=== PATIENT | male | born 1945 | race Caucasian/White ===

== ENCOUNTER 2023-06-09 10:57 | Inpatient (IN) | payer OTHER ==
--- OUTSIDE RECORDS SUMMARY | 2023-06-09 11:01 | XMS REPORT | Continuity of Care Document ---
:1945 Author Organization [facility] t Address 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 - [facility] n) [facility] Coronary CAD Problem Common artery (coronary Spirit disease artery - [facility] disease) [facility] [id number] History of Problem Co mmon prostate [facility] cancer - [facility] [id number] Sciatic Problem Common leg pain [facility] - [facility] Hyperlipid Hyperlipid Problem C ommon emia emia [facility] - [facility] [id number] Malignant Problem Comm on melanoma Spirit of face - [facility] excluding [facility], [facility] Hypertensi Hypertensi Problem C ommon on on [facility] - [facility] [id number] Functional Problem Com mon diarrhea [facility] - [facility] [id number] History of Problem Co mmon acute [facility] anterior - [facility] wall [place] [facility] [id number] Abdominal Problem Com mon bloating [facility] - [facility] [id number] Allergic Problem Commo n rhinitis, Spirit unspecifie - [facility] d [facility] Type II Diabetes Problem Common diabetes mellitus Spirit mellitus type 2, - [facility] well controlled [facility] Hypothyroi Hypothyroi Problem C [facility] dism dism [facility] Allergies, Adverse Reactions, Alerts Allergy Allergy Status Severity Reaction(s) Onset Inactive Treating Comm ents Source Name Type Date Date Clinician Morphine Morphine Active anaphylaxis C [facility] Social History Social Habit Start Date Stop Date Quantity Comments Source History of Tobacco Use Co mmon [facility] Sex Assigned At Com [facility] Smoking Status Start Date Stop Date Source Never Smoker [facility] Medications Ordered Filled Start Stop Current Ordering Indication Dosage Frequency Signature Comments Components Source Medication Medication Date Date Medication? Clinician (SIG) Name Name Glimepiride Glimepiride No 1{table QD Glimepirid 2 MG 2 MG 12-05 t_with_ e 2 MG 00:00: break 00 st_or_t he_firs t_main_ meal_of _the_da y} Glimepiride Glimepiride No 1{table QD Glimepirid 2 MG 2 MG 12-05 t_with_ e 2 MG 00:00: break 00 st_or_t he_firs t_main_ meal_of _the_da y} Montelukast Montelukast No 1{table QD Montelukas Sodium 10 Sodium 10 6-04 t} t Sodium MG MG 00:00: 10 MG 00 Fluticasone Fluticasone No 1{spray QD Fluticason Propionate Propionate 6 _in_eac e 50 MCG/ACT 50 MCG/ACT 00:00: h_nostr Propionate 00 il} 50 MCG/ACT Montelukast Montelukast No 1{table QD Montelukas Sodium 10 Sodium 10 6-04 t} t Sodium MG MG 00:00: 10 MG 00 Fluticasone Fluticasone No 1{spray QD Fluticason Propionate Propionate 6-04 _in_eac e 50 MCG/ACT 50 MCG/ACT 00:00: h_nostr Propionate 00 il} 50 MCG/ACT Levothyroxi Levothyroxi No QD Levothyrox ne Sodium ne Sodium ine Sodium 50 MCG 50 MCG 50 MCG Crestor 40 Crestor 40 No 1{table QD Crestor 40 MG MG t} MG Saw Saw No Saw [place] 450 MG 450 MG 450 MG Multivitami Multivitami No Multivitam n Adult - n Adult - in Adult - Metoprolol Metoprolol No 1{table BID Metoprolol Tartrate 50 Tartrate 50 t_with_ Tartrate MG MG food} 50 MG Januvia 50 Januvia 50 No Januvia 50 MG MG MG Fish Oil Fish Oil No 1{capsu QD Fish Oil 1000 MG 1000 MG le} 1000 MG Methocarbam Methocarbam No Methocarba ol 500 MG ol 500 MG mol 500 MG Aspirin 81 Aspirin 81 No 1{table QD Aspirin 81 81 MG 81 MG t} 81 MG Plavix 75 Plavix 75 No 1{table QD Plavix 75 MG MG t} MG Losartan Losartan No 1{table QD Losartan Potassium Potassium t} Potassium 100 MG 100 MG 100 MG Levothyroxi Levothyroxi No QD Levothyrox ne Sodium ne Sodium ine Sodium 50 MCG 50 MCG 50 MCG Crestor 40 Crestor 40 No 1{table QD Crestor 40 MG MG t} MG Saw Saw No Saw [place] 450 MG 450 MG 450 MG Multivitami Multivitami No Multivitam n Adult - n Adult - in Adult - Metoprolol Metoprolol No 1{table BID Metoprolol Tartrate 50 Tartrate 50 t_with_ Tartrate MG MG food} 50 MG Januvia 50 Januvia 50 No Januvia 50 MG MG MG Fish Oil Fish Oil No 1{capsu QD Fish Oil 1000 MG 1000 MG le} 1000 MG Methocarbam Methocarbam No Methocarba ol 500 MG ol 500 MG mol 500 MG Aspirin 81 Aspirin 81 No 1{table QD Aspirin 81 81 MG 81 MG t} 81 MG Plavix 75 Plavix 75 No 1{table QD Plavix 75 MG MG t} MG Losartan Losartan No 1{table QD Losartan Potassium Potassium t} Potassium 100 MG 100 MG 100 MG Vital Signs Vital Name Observation Time Observation Value Comments Source height 2022-09-30 08:20:00 66 [in_i] Common [facility] weight 2022-09-30 08:20:00 183 [lb_av] Common [facility] temperature 2022-09-30 08:20:00 97.2 [degF] Common [facility] bmi 2022-09-30 08:20:00 29.53 kg/m2 Common [facility] oximetry 2022-09-30 08:20:00 98 % Common [facility] respiratory rate 2022-09-30 08:20:00 16 /min Comm on [facility] blood pressure 2022-09-30 08:20:00 136 mm[Hg] Common [facility] - systolic [facility] blood pressure 2022-09-30 08:20:00 82 mm[Hg] Common [facility] - diastolic [facility] height 2022-09-30 09:00:00 66 [in_i] Common [facility] weight 2022-09-30 09:00:00 183 [lb_av] Common [facility] temperature 2022-09-30 09:00:00 97.2 [degF] Common [facility] bmi 2022-09-30 09:00:00 29.53 kg/m2 [facility] oximetry 2022-09-30 09:00:00 98 % [facility] respiratory rate 2022-09-30 09:00:00 16 /min Comm on [facility] blood pressure 2022-09-30 09:00:00 136 mm[Hg] Common [facility] - systolic [facility] blood pressure 2022-09-30 09:00:00 82 mm[Hg] Common [facility] diastolic [facility] Procedures This patient has no known procedures. Encounters Start End Encounter Admission Attending Care Care Encounter Source Date/Time Date/Time Type Type Clinicians Facility Department ID 2022-09-[address] [facility] [id number] Common 08:24:02 Sandie [id number] [facility] 2022-09-30 2022-09-30 OFFICE [facility] [id number] Co mmon 00:00:00 00:00:00 VISIT EST Spir it PT LEVEL 3 - [facility] 2022-09-30 2022-09-30 SUB ANNUAL [facility] [id number] Common 00:00:00 00:00:00 MCR Spirit WELLNESS - [facility] VISIT [facility] Results This patient has no known results.
[2023-06-09] MEDS ORDERED: FAMOTIDINE 20 MG/2 ML VIAL IV ONE (11:22)
[2023-06-09 11:38] LABS: Absolute Lymphocytes (CBC) 1.1 K/uL (0.7-4.9); Hematocrit 47.1 % (39.6-49.0); Lymphocytes % 7.6 % (15.3-44.8); MPV 7.9 fL (7.6-11.3); RBC Red Blood Cell Count 5.12 M/uL (4.33-5.43)
--- NOTE | 2023-06-09 11:46 | RAD REPORT ---
EXAM DESCRIPTION: US - Abdomen Exam Limited - 06/09/2023 11:38 am CLINICAL HISTORY: ABD PAIN COMPARISON: No comparisons FINDINGS: The gallbladder demonstrates no gallstones. No pericholecystic fluid or gallbladder wall t hickening. The common bile duct is normal measuring 4 mm. The liver demonstrates no findings of intrahepatic biliary dilatation. IMPRESSION: Unremarkable examination.
[2023-06-09 12:17] LABS: Albumin 4.2 g/dL (3.4-5.0); Bilirubin Total 0.4 mg/dL (0.2-1.0); Potassium 4.7 mEq/L (3.5-5.1); Protein, Total 8.8 g/dL (6.4-8.2); Troponin High Sensitivity 35.2 pg/mL (<58.9)
--- NOTE | 2023-06-09 12:27 | RAD REPORT ---
EXAM DESCRIPTION: RAD - Chest Single View - 06/09/2023 11:48 am CLINICAL HISTORY: CHEST PAIN Chest pain. COMPARISON: No comparisons FINDINGS: Portable technique limits examination quality. The lungs are grossly clear. The heart is normal in size. No displaced fractures.Sternotomy wires autumn dent. IMPRESSION: No acute intrathoracic process suspected.
[2023-06-09 12:48] LABS: Protime INR 0.8
--- NOTE | 2023-06-09 12:49 | RAD REPORT ---
EXAM DESCRIPTION: CTChest Abdomen Pelvis W Cont - 06/09/2023 12:32 pm CLINICAL HISTORY: abd pain;Chest pain COMPARISON: Abdomen Exam Limited dated 06/09/2023; Rad Therapy [facility] Pelv dated 06/23/2018 TECHNIQUE: CT of the chest, abdomen, and pelvis was performed with IV contrast. All CT scans are performed using dose optimization technique as appropriate and may include automated exposure control or mA/KV adjustment according to patient size. FINDINGS: Thorax: Chest Wall: No abnormal mass Lungs: Mild subpleural reticulation. No suspicious pulmonary nodules or acute process in the chest. Pleura: No effusions or pneumothorax. Carmelita/Mediastinum: No lymphadenopathy. Small hiatal hernia. Aorta/Pulmonary Arteries: Unremarkable Heart: Normal size. Coronary artery calcifications. Abdomen/Pelvis: Liver: Hepatic steatosis Biliary: Question some mild stranding around the gallbladder neck, common hepatic duct, and proximal common bile duct. Question tiny gallstones versus gallbladder wall calcifications. Stomach: No significant focal abnormality. Duodenum: Duodenal diverticulum. Pancreas: No significant abnormality. Spleen: No significant abnormality. Adrenal: No suspicious lesions. Kidney/ureter: No hydronephrosis. Bilateral renal calculi. The largest measures 16 millimeters in the right renal pelvis. Too small to characterize and/or benign appearing renal lesions are noted. Retroperitoneum: No retroperitoneal adenopathy. Vascular: No aneurysm. Atherosclerosis. Bowel: No significant focal abnormality. Normal appendix. Peritoneum: No ascites or free air. 14 mm peripherally calcified structure in in the transverse mesoc olon is nonspecific. It is unchanged since 2018 and benign . Bladder: Grossly unremarkable. Reproductive: No adnexal masses. Mild prostatomegaly. Bones: No acute fracture. Sternotomy. Other: n/a IMPRESSION: 1. No definite acute findings identified within the chest, abdomen, or pelvis. 2. Subtle stranding near the gallbladder neck, common hepatic duct, and proximal common bile duct. Th e etiology is uncertain, particularly given the unremarkable gallbladder ultrasound. Suggest correlat ing with LFTs. If abnormal, could consider MRCP for further evaluation. 3. Nonobstructive bilateral nephrolithiasis including a moderate size staghorn type 16 mm stone in th e right renal pelvis. No ureteral calculi.
--- NOTE | 2023-06-09 16:20 | RAD REPORT ---
EXAM DESCRIPTION: MRI - Cholangiogram - 06/09/2023 3:59 pm CLINICAL HISTORY: abd pain, chest tightness COMPARISON: Chest Abdomen Pelvis W Cont dated 06/09/2023 FINDINGS: Three-dimensional MRCP was performed using maximum intensity projection reconstruction on the same work station. Mild pericholecystic fluid. Negative for cholelithiasis. No choledocholithiasis. The intra and extrah epatic common bile ducts are normal in caliber. The common bile duct measures 4 millimeters. No pancr eatic ductal dilatation. 6 mm cyst at the pancreatic body. Limited T2 sequences through the abdomen demonstrates no bulky adenopathy, significant free fluid or abscess. Bilateral renal lesions of varying complexity likely representing cysts. IMPRESSION: Nonspecific pericholecystic fluid. Negative for cholelithiasis or choledocholithiasis. T his could be secondary to underlying liver disease. 6 mm cystic lesion in the pancreatic body could represent a pancreatic cyst, pseudocyst, or a small i ntraductal papillary mucinous neoplasm (IPMN). Twelve month follow-up MRCP is suggested.
--- NOTE | 2023-06-09 16:48 | ER ---
Nurse's Notes [facility] Name: Nnamdi Flores III Age: 77 yrs Sex: Male : 1945 Arrival Date: 06/09/2023 Time: 10:57 Bed 17 Private MD: Diagnosis: Chest pain, unspecified;Upper abdominal pain, unspecified;Pericholecystic fluid Presentation: 06/09 11:03 Chief complaint: EMS states: Woke up with the sensation of a rope being tied around nj1 chest/abdomen. Recently started mounjaro. Pain has gotten better. Coronavirus screen: Vaccine status: Patient reports receiving the 2nd dose of the covid vaccine. Ebola Screen: Patient denies travel to an Ebola-affected area in the 21 days before illness onset. Initial Sepsis Screen: Does the patient meet any 2 criteria? No. Patient's initial sepsis screen is negative. Does the patient have a suspected source of infection? No. Patient's initial sepsis screen is negative. Risk Assessment: Do you want to hurt yourself or someone else? Patient reports no desire to harm self or others. Onset of symptoms was June 09, 2023. 11:03 Method Of Arrival: EMS: [facility] 11:03 Acuity: DAMION 3 nj1 Historical: - Allergies: 11:06 Sulfa (Sulfonamide Antibiotics); nj1 11:06 Morphine; nj1 - PMHx: 11:06 Hypothyroidism; Hypertensive disorder; Coronary atherosclerosis; BPH; nj1 - Immunization history:: Client reports receiving the 2nd dose of the Covid vaccine. - Social history:: Smoking status: Patient denies any tobacco usage or history of. - Family history:: not pertinent. - Hospitalizations: : No recent hospitalization is reported. Screenin:09 [facility] ED Fall Risk Assessment (Adult) History of falling in the last 3 months, nj1 including since admission No falls in past 3 months (0 pts) Confusion or Disorientation No (0 pts) Intoxicated or Sedated No (0 pts) Impaired Gait No (0 pts) Mobility Assist Device Used No (0 pt) Altered Elimination No (0 pt) Score/Fall Risk Level 0 - 2 = Low Risk Oriented to surroundings, Maintained a safe environment, Hourly rounding (assess needs \T\ fall precautionary measures) done. Abuse screen: Denies threats or abuse. Denies injuries from another. Nutritional screening: No deficits noted. Tuberculosis screening: No symptoms or risk factors identified. Assessment: 11:07 General: Appears in no apparent distress. comfortable, Behavior is calm, cooperative, nj1 appropriate for age. Pain: Complains of pain in diaphragm Pain does not radiate. Pain currently is 3 out of 10 on a pain scale. Pain began this morning. Neuro: Level of Consciousness is awake, alert, obeys commands, Oriented to person, place, time, situation. Cardiovascular: Patient's skin is warm and dry. GI:. 19:30 General: Appears in no apparent distress. comfortable, Behavior is calm, cooperative, kl appropriate for age. Pain: Denies pain. Neuro: No deficits noted. Cardiovascular: Capillary refill < 3 seconds Patient's skin is warm and dry. Rhythm is sinus rhythm. Respiratory: No deficits noted. Airway is patent Trachea midline Respiratory effort is even, unlabored. GI: No deficits noted. No signs and/or symptoms were reported involving the gastrointestinal system. : No deficits noted. No signs and/or symptoms were reported regarding the genitourinary system. 21:00 Reassessment: Patient appears in no apparent distress at this time. Patient is alert, kl oriented x 3, equal unlabored respirations, skin warm/dry/pink. Patient states feeling better. Patient states symptoms have improved. Vital Signs: 11:03 BP 199 / 90; Pulse 80; Resp 20; Temp 98.2(O); Pulse Ox 96% on R/A; Weight 78.93 kg; nj1 Height 5 ft. 5 in. ; Pain 3/10; 12:58 BP 196 / 82; Pulse 74; Resp 18; Pulse Ox 99% on R/A; ko1 13:25 BP 189 / 71; Pulse 78; Resp 18; Pulse Ox 99% ; ko1 14:00 BP 204 / 85; Pulse 75; Resp 18; Pulse Ox 97% ; ko1 15:00 BP 199 / 86; Pulse 83; Resp 18; Pulse Ox 97% ; ko1 16:00 BP 176 / 93; Pulse 82; Resp 16; Pulse Ox 98% ; ko1 18:00 BP 170 / 78; Pulse 83; Resp 18; Pulse Ox 97% ; ko1 19:30 BP 148 / 71; Pulse 76; Resp 18; Pulse Ox 98% ; kl 20:00 BP 147 / 73; Pulse 76; Resp 18; Pulse Ox 96% ; kl 21:00 BP 155 / 74; Pulse 74; Resp 18; Pulse Ox 98% ; kl 22:00 BP 153 / 68; Pulse 71; Resp 18; Pulse Ox 99% ; kl 11:03 Body Mass Index 28.95 (78.93 kg, 165.1 cm) nj1 11:03 Pain Scale: Adult [facility] ED Course: 11:02 Patient arrived in ED. nj1 11:02 Shivam Rodriguez MD is Attending Physician. rn 11:02 Cookie Arrieta RN is Primary Nurse. nj1 11:06 Triage completed. nj1 11:07 Arm band placed on left wrist. nj1 11:09 Provided Education on: fall precautions. nj1 11:09 Patient has correct armband on for positive identification. Bed in low position. Call [facility] light in reach. Side rails up X 1. Adult w/ patient. Client placed on continuous cardiac and pulse oximetry monitoring. NIBP monitoring applied. 11:10 Patient maintains SpO2 saturation greater than 95% on room air. nj1 11:40 US Abdomen Limited In Process Unspecified. EDMS 11:47 XRAY Chest (1 view) In Process Unspecified. EDMS 12:07 EKG done, by ED staff, reviewed by Shivam Rodriguez MD. em1 12:23 PT-INR Sent. ko1 12:23 Basic Metabolic Panel Sent. ko1 12:30 Inserted saline lock: 22 gauge in left wrist, using aseptic technique. ko1 12:34 CT Chest, Abdomen, Pelvis - W/Contrast In Process Unspecified. EDMS 16:00 Cholangiogram In Process Unspecified. EDMS 16:47 Neto Rodriguez MD is Hospitalizing Provider. rn 18:00 Door closed. Warm blanket given. Pillow given. ko1 22:37 No apparent distress. Resting quietly. Appears to be sleeping. kl 22:37 No provider procedures requiring assistance completed. kl 23:17 Patient admitted, IV remains in place. kl Administered Medications: 12:19 Drug: Famotidine IVP 20 mg Route: IVP; Site: left wrist; ko1 17:07 Drug: Piperacillin-Tazobactam IVPB 3.375 grams Route: IVPB; Infused Over: 60 mins; ko1 Site: left wrist; 17:58 Drug: Aspirin PO Chewable Tablet 324 mg Route: PO; ko1 17:58 Drug: Enoxaparin Sub-Q 1 mg/kg Route: Sub-Q; Site: abdomen; ko1 Medication: 23:17 VIS not applicable for this client. shree Outcome: 16:48 Decision to Hospitalize by Provider. francheska 23:16 Admitted to Med/surg via wheelchair, room 210, with chart, Report called to Autumn swann 23:16 Condition: stable 23:16 Discharge instructions given to patient, Instructed on the need for admit, Demonstrated understanding of instructions. 23:17 Patient left the ED. shree Signatures: Dispatcher [employer] EDMS Carline Lala RN RN kl Nieto, Roman, MD MD rn Martinez, Eric em1 Oliver, Kathy, RN RN koCookie Brown RN RN nj1
--- NOTE | 2023-06-09 16:48 | EDPHYS ---
Physician Documentation [facility] Name: Nnamdi Flores III Age: 77 yrs Sex: Male : 1945 Arrival Date: 06/09/2023 Time: 10:57 Bed 17 Private MD: ED Physician Shivam Rodriguez HPI: 06/09 11:46 This 77 yrs old Unknown Male presents to ER via EMS with complaints of abdominal pain. rn 11:47 The patient presents with abdominal pain in the epigastric area. Onset: The rn symptoms/episode began/occurred this morning. The symptoms do not radiate. Associated signs and symptoms: Pertinent negatives: nausea and vomiting, blood in stools, fever, shortness of breath, vomiting, vomiting blood. The symptoms are described as tightness. Modifying factors: The symptoms are alleviated by nothing, the symptoms are aggravated by cold water. Severity of pain: At its worst the pain was moderate in the emergency department the pain has improved. The patient has experienced similar episodes in the past. The patient has not recently seen a physician. Pt reports woke up with "feeling like a rope tightening around upper stomach". No fever. No trauma. Reports hard to tell if upper abdomen or chest. NO sob/cough. No hemoptysis. Reports taking weight loss medication and has been belching a lot. Cold water improves discomfort. NO vomiting. Pain already improving without EMS intervention, currently discomfort 12/27.. Historical: - Allergies: 11:06 Sulfa (Sulfonamide Antibiotics); nj1 11:06 Morphine; nj1 - PMHx: 11:06 Hypothyroidism; Hypertensive disorder; Coronary atherosclerosis; BPH; nj1 - Immunization history:: Client reports receiving the 2nd dose of the Covid vaccine. - Social history:: Smoking status: Patient denies any tobacco usage or history of. - Family history:: not pertinent. - Hospitalizations: : No recent hospitalization is reported. ROS: 11:47 Constitutional: Negative for fever, chills, and weight loss, Eyes: Negative for injury, rn pain, redness, and discharge, Neck: Negative for injury, pain, and swelling, Cardiovascular: Negative for palpitations, and edema, Respiratory: Negative for shortness of breath, cough, wheezing, and pleuritic chest pain, Abdomen/GI: Negative for nausea, vomiting, + constipation Back: Negative for injury and pain, MS/Extremity: Negative for injury and deformity, Skin: Negative for injury, rash, and discoloration, Neuro: Negative for headache, weakness, numbness, tingling, and seizure. Exam: 11:47 Constitutional: This is a well developed, well nourished patient who is awake, alert, rn and in no acute distress. ENT: dry MM Chest/axilla: Normal chest wall appearance and motion. Nontender with no deformity. No lesions are appreciated. Cardiovascular: Regular rate and rhythm. No pulse deficits. Respiratory: No increased work of breathing, no retractions or nasal flaring. Abdomen/GI: Soft, mild epigastric tenderness Skin: Warm, dry MS/ Extremity: Pulses equal, no cyanosis. Neuro: Awake and alert, GCS 15 12:44 ECG was reviewed by the Attending Physician. rn Vital Signs: 11:03 BP 199 / 90; Pulse 80; Resp 20; Temp 98.2(O); Pulse Ox 96% on R/A; Weight 78.93 kg; nj1 Height 5 ft. 5 in. ; Pain 3/10; 12:58 BP 196 / 82; Pulse 74; Resp 18; Pulse Ox 99% on R/A; ko1 13:25 BP 189 / 71; Pulse 78; Resp 18; Pulse Ox 99% ; ko1 14:00 BP 204 / 85; Pulse 75; Resp 18; Pulse Ox 97% ; ko1 15:00 BP 199 / 86; Pulse 83; Resp 18; Pulse Ox 97% ; ko1 16:00 BP 176 / 93; Pulse 82; Resp 16; Pulse Ox 98% ; ko1 18:00 BP 170 / 78; Pulse 83; Resp 18; Pulse Ox 97% ; ko1 19:30 BP 148 / 71; Pulse 76; Resp 18; Pulse Ox 98% ; kl 20:00 BP 147 / 73; Pulse 76; Resp 18; Pulse Ox 96% ; kl 21:00 BP 155 / 74; Pulse 74; Resp 18; Pulse Ox 98% ; kl 22:00 BP 153 / 68; Pulse 71; Resp 18; Pulse Ox 99% ; kl 11:03 Body Mass Index 28.95 (78.93 kg, 165.1 cm) nj1 11:03 Pain Scale: Adult nj1 MDM: 11:02 Patient medically screened. rn 16:43 Differential diagnosis: appendicitis, bowel obstruction, cholecystitis, Cholelithiasis, rn diverticulitis, gastritis, gastroesophageal reflux disease, non-specific abd pain, pancreatitis, Peptic Ulcer Disease. Data reviewed: vital signs, nurses notes, lab test result(s), radiologic studies, CT scan, and as a result, I will admit patient. Consideration of Admission/Observation Patient was admitted/placed on observation. Escalation of care including admission/observation considered. Management of patient was discussed with the following: Hospitalist: . Colorist Photography: Dr. Car, requests HIDA scan, NPO after midnight, and abx. . Counseling: I had a detailed discussion with the patient and/or guardian regarding: the historical points, exam findings, and any diagnostic results supporting the discharge/admit diagnosis, lab results, radiology results, the need for further work-up and treatment in the hospital. Response to treatment: the patient's symptoms have mildly improved after treatment, and as a result, I will admit patient. 17:31 ED course: Repeat trop elevated to 161, no ischemia on ECG, consulted with Dr. Orr, rn requests aspirin and lovenox x 1, will consult and see patient, to rule out ACS. . 06/09 11:03 Order name: Basic Metabolic Panel 06/09 11:03 Order name: CBC with Diff; Complete Time: 12:32 06/09 11:03 Order name: NT PRO-BNP; Complete Time: 12:32 06/09 11:03 Order name: PT-INR; Complete Time: 12:58 06/09 11:03 Order name: Troponin HS; Complete Time: 12:32 06/09 11:03 Order name: CMP; Complete Time: 12:32 06/09 11:03 Order name: Lipase; Complete Time: 12:32 06/09 16:01 Order name: Troponin High Sensitivity; Complete Time: 17:03 06/09 17:25 Order name: Troponin High Sensitivity [facility] 06/09 17:25 Order name: Troponin High Sensitivity [facility] 06/09 17:40 Order name: Magnesium [facility] 06/09 17:40 Order name: Phosphorus [facility] 06/09 17:40 Order name: T4 Free [facility] 06/09 17:40 Order name: Thyroid Stimulating Hormone [facility] 06/09 17:40 Order name: Urinalysis w/ reflexes [facility] 06/09 17:40 Order name: Basic Metabolic Panel [facility] 06/09 17:41 Order name: Basic Metabolic Panel [facility] 06/09 17:41 Order name: CBC with Automated Diff [facility] 06/09 17:41 Order name: CBC with Automated Diff [facility] 06/09 17:43 Order name: Hemoglobin A1c [facility] 06/09 17:43 Order name: Lipid Profile [facility] 06/09 17:43 Order name: Lipid Profile [facility] 06/09 11:03 Order name: XRAY Chest (1 view); Complete Time: 12:32 06/09 11:03 Order name: US Abdomen Limited; Complete Time: 12:32 06/09 11:03 Order name: CT Chest, Abdomen, Pelvis - W/Contrast; Complete Time: 12:58 06/09 13:04 Order name: Cholangiogram; Complete Time: 16:22 [facility] 06/09 17:43 Order name: Echo with Doppler [facility] 06/09 17:45 Order name: ERCP-Biliary [facility] 06/09 11:03 Order name: EKG; Complete Time: 11:04 06/09 17:37 Order name: NPO; Complete Time: 17:58 [facility] 06/09 17:40 Order name: 60g Consistent Carbohydrate (ADA 1800/2000); Complete Time: 17:58 [facility] 06/09 11:03 Order name: Cardiac monitoring; Complete Time: 11:10 06/09 11:03 Order name: EKG - Nurse/Tech; Complete Time: 11:55 06/09 11:03 Order name: IV Saline Lock; Complete Time: 12:23 06/09 11:03 Order name: Labs collected and sent; Complete Time: 12:23 06/09 11:03 Order name: O2 Per Protocol; Complete Time: 11:10 06/09 11:03 Order name: O2 Sat Monitoring; Complete Time: 11:10 rn EC:44 Rate is 76 beats/min. Rhythm is regular. QRS [place] is Normal. [place] interval is normal. QRS rn interval is normal. QT interval is normal. No Q waves. T waves are Normal. No ST changes noted. Clinical impression: NSR w/ Non-specific ST/T Changes. Interpreted by me. Reviewed by me. Administered Medications: 12:19 Drug: Famotidine IVP 20 mg Route: IVP; Site: left wrist; ko1 17:07 Drug: Piperacillin-Tazobactam IVPB 3.375 grams Route: IVPB; Infused Over: 60 mins; ko1 Site: left wrist; 17:58 Drug: Aspirin PO Chewable Tablet 324 mg Route: PO; ko1 17:58 Drug: Enoxaparin Sub-Q 1 mg/kg Route: Sub-Q; Site: abdomen; ko1 Disposition Summary: 06/09/23 16:48 Hospitalization Ordered Hospitalization Status: Inpatient Admission rn Provider: Neto Rodriguez rn Condition: Stable rn Problem: new rn Symptoms: have improved rn Bed/Room Type: Standard rn Location: Telemetry/MedSurg (Inpatient)(06/09/23 21:01) cg Room Assignment: [facility] [place] [facility] [place]06/09/23 22:28) Diagnosis - Chest pain, unspecified rn - Upper abdominal pain, unspecified rn - Pericholecystic fluid rn Forms: - Medication Reconciliation Form rn - SBAR form rn Signatures: Dispatcher [employer] EDMS Noreen Lugo bd Shivam Rodriguez MD MD rn Garcia, Cindy, RN RN cg Oliver, Kathy, RN RN ko1 Cookie Arrieta RN RN nj1 Corrections: (The following items were deleted from the chart) 17:20 16:48 Telemetry/MedSurg (Inpatient) rn bd 17:20 16:48 rn bd 21:01 17:20 [facility] ER HOLD bd cg 21:01 17:20 ERHOLD- bd cg 22:28 21:01 cg cg
[2023-06-09] MEDS ORDERED: NA CHLORIDE 0.9% 100 ML ONE (17:05)
[2023-06-09] MEDS ORDERED: PIPERACIL/TAZO 3.375 GM VIAL IV ONE (17:05)
[2023-06-09] MEDS ORDERED: ACETAMINOPHEN 325 MG TABLET PO PRN (17:35)
[2023-06-09] MEDS ORDERED: FENTANYL CITR 100 MCG/2 ML IV PRN (17:35)
[2023-06-09] MEDS ORDERED: ONDANSETRON 4 MG/2 ML VIAL IV PRN (17:37)
--- NOTE | 2023-06-09 17:42 | P.HP ---
Certification for Inpatient Patient admitted to: Inpatient With expected LOS: >2 Midnights Patient will require the following post-hospital care: None Practitioner: I am a practitioner with admitting privileges, knowledge of patient current condition, hospital course, and medical plan of care. Services: Services provided to patient in accordance with Admission requirements found in Title 42 Section 412.3 of the Code of Federal Regulations Patient History Date of Service: 06/09/23 Reason for admission: Epigastric pain\\chest pain History of Present Illness: Patient is a 77-year-old male with a past medical history significant for hypothyroidism, hypertension, CAD, MS, BPH, DM 2 who presents with complaint of chest pain located in the epigastric area onset this morning. Patient rated pain as 6/10 in severity and described pain as tightness in quality. Patients spouse reported that patient was recently started on a weekly diabetic med ication for his " prediabetes". Patient also reported that his A1c was " 8.something". Patient denies being a diabetic and that his A1c levels in the 8s was a "one-time thing." Patient reported associated signs and symptoms of right upper quadrant pain, diaphoresis and headache. Patient denies any other signs and symptoms. Symptoms are aggravated or relieved by nothing. Family decided to bring patient to the hospital for medical evaluation. Allergies morphine Allergy (Severe, Verified 06/09/23 18:34) Shortness of breath Sulfa (Sulfonamide Antibiotics) Allergy (Verified 06/09/23 18:34) Itching/Hives/Rash Home medications list reviewed: No Home Medications: Levothyroxine Sodium 50 mcg PO DAILY 06/09/23 Losartan Potassium 100 mg PO DAILY 06/09/23 Metoprolol Tartrate 50 mg PO BID 06/09/23 Red Yeast Rice 600 mg PO DAILY 06/09/23 Aspirin [Natalio Chewable] 81 mg PO M,W,F 06/10/23 Tamsulosin [Flomax] 0.4 mg PO BEDTIME 06/10/23 - Past Medical/Surgical History -: HTN -: CAD -: MS -: BPH -: DM 2 -: Hypothyriodism -: CAGB - Family History Family History: Reviewed- Non-Contributory - Social History Smoking Status: Never smoker Alcohol use: No Caffeine use: Yes Place of Residence: Home Review of Systems General: Sweats Eyes: Unremarkable ENT: Unremarkable Respiratory: Unremarkable Cardiovascular: Chest Pain, Unremarkable Gastrointestinal: Abdominal Pain Genitourinary: Unremarkable Musculoskeletal: Unremarkable Integumentary: Unremarkable Neurological: Other (MARTÍNEZ) Lymphatics: Unremarkable Physical Examination - Physical Exam General: Alert, In no apparent distress, Oriented x3, Cooperative HEENT: Atraumatic, PERRLA, Mucous membr. moist/pink, EOMI, Sclerae nonicteric Neck: Supple, 2+ carotid pulse no bruit, No LAD, Without JVD or thyroid abnormality Respiratory: Clear to auscultation bilaterally, Normal air movement Cardiovascular: No edema, Regular rate/rhythm, Normal S1 S2 Capillary refill: <2 Seconds Gastrointestinal: Normal bowel sounds, Tenderness Musculoskeletal: No clubbing, No swelling, No contractures, No tenderness Integumentary: No rashes, No breakdown, No significant lesion Neurological: Normal gait, Normal speech, Normal strength at 5/5 x4 extr, Normal tone, Normal affect Lymphatics: No axilla or inguinal lymphadenopathy - Studies Laboratory Data (last 24 hrs) 06/09/23 11:25: PT 9.7, INR 0.80 06/09/23 11:25: WBC 14.90 H, Hgb 15.7, Hct 47.1, Plt Count 258 06/09/23 11:25: Sodium 135 L, Potassium 4.7, BUN 24 H, Creatinine 1.45 H, Glucose 172 H, Total Bilirubin 0.4, AST 21, ALT 40, Alkaline Phosphatase 95, Lipase 53 Assessment and Plan - Plan -- Chest pain. To rule out ACS. Serial troponins trending up. Cardiology consulted. Recommended a one-time dose of Lovenox and loading dose of aspirin. Cardiology indicated that if the 3rd troponin level is elevated there will be a possible left heart cath in a.m. Echocardiogram pending to assess cardiac structures and functions. Telemetry to monitor for any significant arrhythmia. Will await further recommendation from assistant teacher. --Epigastric pain. MRCP indicates "Nonspecific pericholecystic fluid" and "6 mm cystic lesion in the pancreatic body could represent a pancreatic cyst, pseudocyst, or a small intraductal papillary mucinous neoplasm." Surgeon consulted. Recommends an ERCP. We will continue antibiotics and await further recommendation from surgeon. --Acute pain. We will manage pain with current pain medication regimen. --CKD 3A Baseline functions unknown. We will continue to monitor renal functions. --DM2. Patient denies being a diabetic although patient was started on a weekly diabetic subcutaneous medication and has had 3 shots. Hemoglobin A1c currently is 7.2. BS monitoring with sliding scale insulin. --Hyperlipidemia. Patient placed on statin. --Hypothyroidism. Continue Synthroid. --History of CAD\\MS. Continue aspirin and statin. -- Hypertension. Poorly controlled. Continue home medications and hydralazine as needed. --BPH. Continue Flomax. --Leukocytosis. Unclear etiology. Blood cultures pending. Continue antibiotics. --DVT prophylaxis with SCDs. Patient has a one-time dose of Lovenox sub. Continue chemical prophylaxis when appropriate. Discharge Plan: Home Plan to discharge in: Greater than 2 days - Advance Directives Does patient have a Living Will: Yes Does patient have a Durable POA for Healthcare: Yes - Code Status/Comfort Care Code Status Assessed: Yes Physician Review: Patient Assessed, Agree with Above Assessment and Plan Critical Care: No
[2023-06-09] MEDS ORDERED: ENOXAPARIN 80 MG/0.8 ML SQ ONE (18:00)
[2023-06-09] MEDS ORDERED: ASPIRIN 81 MG CHEWABLE TABLET ONE (18:00)
[2023-06-09] MEDS: INSULIN -REGULAR HUMAN 50 UNIT/0.5 ML ML SQ SCH (21:00)
[2023-06-09 21:44] LABS: Magnesium 1.8 mg/dL (1.6-2.4); Phosphorus 3.4 mg/dL (2.5-4.9)
[2023-06-09 22:01] LABS: Thyroid Stimulating Hormone 6.25 uIU/mL (0.358-3.740)
[2023-06-09 23:55] VITALS: BMI 29.0
[2023-06-10] MEDS ORDERED: METOPROLOL TAR 50 MG TAB PO SCH ×2 (01:00→09:00)
[2023-06-10 03:24] LABS: Absolute Lymphocytes (CBC) 1.9 K/uL (0.7-4.9); Hematocrit 41.7 % (39.6-49.0); Lymphocytes % 12.3 % (15.3-44.8); MPV 8.3 fL (7.6-11.3); RBC Red Blood Cell Count 4.58 M/uL (4.33-5.43)
[2023-06-10 03:43] LABS: BUN Blood Urea Nitrogen 19 mg/dL (7-18); Bicarbonate 26 mEq/L (21-32); Glomerular Filtration Rate 50 ml/min (=/>90); Glucose Level 144 mg/dL (74-106); HDL Cholesterol 29 mg/dL (40-60); Potassium 3.8 mEq/L (3.5-5.1); Sodium Level 135 mEq/L (136-145)
[2023-06-10 03:54] LABS: LDL, Direct 53 mg/dL (100-129)
[2023-06-10] MEDS ORDERED: KCL 20 MEQ/100 mL IVPB 20 MEQ/100 ML BAG IV SCH (05:00)
[2023-06-10] MEDS ORDERED: NA CHLORIDE 0.9% 250 ML ONE (05:40)
[2023-06-10] MEDS: INSULIN -REGULAR HUMAN 50 UNIT/0.5 ML ML SQ SCH ×4 (07:30→21:00)
[2023-06-10] MEDS: LEVOTHYROXINE SOD 0.05 MG TABLET PO SCH (08:05)
[2023-06-10] MEDS: PIPER TAZO 3.375 GM in NA CHLORIDE 0.9% 100 ML IV SCH ×2 (08:06→16:28)
[2023-06-10 09:28] LABS: Specific Gravity 1.021 (1.005-1.030); Urine Bacteria <20 /HPF (<20); Urine Bilirubin NEGATIVE (Negative); Urine Blood Negative (Negative); Urine Clarity Clear (Clear); Urine Color Light-Yellow (Yellow); Urine Glucose NEGATIVE (Negative); Urine Mucus Slight /HPF (None Seen); Urine Protein 2+ (Negative); Urine RBC <5 /HPF (None Seen); Urine Urobilinogen Normal (Normal); Urine WBC Clump Rare /HPF (None Seen); Urine pH 5.5 (5.0-7.0)
--- NOTE | 2023-06-10 14:54 | EKG ---
Test Date: 2023-06-09 Test Time: 17:11:30 Steam Clean Machine Operator: SUN MEASUREMENT RESULTS: Intervals: Rate: 81 UT: 172 QRSD: 104 QT: 394 QTc: 457 [place]: P: 36 UT: 172 QRS: -81 T: -14 INTERPRETIVE STATEMENTS: Normal sinus rhythm with sinus arrhythmia Left axis deviation Anteroseptal infarct, age undetermined Abnormal ECG Compared to ECG 06/09/2023 11:52:11 Left-axis deviation now present Myocardial infarct finding still present Electronically Signed On 06-10-23 14:54:06 CDT by Nelson Orr
--- NOTE | 2023-06-10 14:55 | EKG ---
Test Date: 2023-06-09 Test Time: 11:52:11 Serging Machine Operator: HILARIO MEASUREMENT RESULTS: Intervals: Rate: 76 IL: 176 QRSD: 104 QT: 370 QTc: 416 [place]: P: 50 [place]: 176 QRS: -28 T: 2 INTERPRETIVE STATEMENTS: Normal sinus rhythm with sinus arrhythmia Anteroseptal infarct, age undetermined Abnormal ECG Compared to ECG 03/24/1992 05:50:00 Myocardial infarct finding now present T-wave abnormality no longer present Electronically Signed On 06-10-23 14:54:39 CDT by Nelson Orr
--- NOTE | 2023-06-10 15:57 | RAD REPORT ---
EXAM DESCRIPTION: NM - Hepatobiliary System Imagin - 06/10/2023 1:58 pm CLINICAL HISTORY: Abdominal pain TECHNIQUE: The patient was administered 6.3 millicuries technetium Choletec intravenous and images o f the abdomen obtained for 3-1/2 hours FINDINGS: Liver demonstrates prompt radiotracer uptake. No activity present within the gallbladder Uptake is seen within small bowel. Biliary tree normal caliber IMPRESSION: Nonvisualization of radiotracer within the gallbladder may indicate acute cholecystitis
--- NOTE | 2023-06-10 16:06 | CON ---
Date of Consultation: 06/10/2023 Reason For Consultation: Chest pain and elevated troponin. History Of Present Illness: A 77-year-old male with history of hypertension, hypothyroidism, coronar y artery disease and diabetes, who presented with epigastric pain 6/10 and no radiation, not related to exertion, had 1 episode and completely resolved, and at the present time he does not have any ches t pain. Past Medical History: As outlined above in the HPI. Medications: Refer to reconciliation sheet for detailed list. Allergies: MORPHINE AND SULFA. Family History: No premature coronary artery disease or cancer. Social History: He does not smoke or drink. Does not use any drugs. Review of Systems: All systems reviewed and they were negative except what mentioned in HPI. Physical Examination: Vital Signs: Reviewed. Head and Neck: Pupils are equal, reactive to light. Intact eye movements. No JVD. No cervical lym phadenopathy. Neck is supple. Thyroid is not enlarged. Lungs: Clear to auscultation bilaterally. No rhonchi, wheezing, or crackles. No accessory muscle u se. Heart: Regular rate and rhythm. No extra sounds. Abdomen: Soft, nontender. Bowel sounds positive. No organomegaly. No masses or hernia. No rigidi ty or rebound. Extremities: No edema, clubbing, or cyanosis. Intact pulses. Skin: No rash. Neurologic: Alert, awake, oriented x3. No acute focal deficits appreciated. Lymph Nodes: No cervical or axillary lymphadenopathy. Investigations: Troponins so far peaked at 310. BUN is 19, creatinine 0.44. His hemoglobin is 14.4 and white blood cell count is 15.2. Assessment And Recommendations: 1.Chest pain with positive troponin mildly elevated with no history of coronary artery disease. Rec ommend exercise nuclear stress test and an echo. In the interim, I would continue on baby aspirin un til the patient has his stress test is done. This could be demand as the patient might be having als o gallbladder disease. In case the patient will require surgery, I recommend to obtain a stress test prior to the surgery. 2.Coronary artery disease, chest pain. Plan as above. 3.Dyslipidemia. Continue statin. SR/MODL Voice ID: [id number] Report ID: [id number]
--- NOTE | 2023-06-10 16:26 | P.PN ---
Subjective Date of Service: 06/10/23 Chief Complaint: Epigastric pain\\chest pain Patient has no new complaint. He reports his chest pain has resolved. Troponin trended up slightly. Physical Examination - Vital Signs Temperature: 97.0 F Blood Pressure: 138/72 Pulse: 78 Respirations: 16 Pulse Ox (%): 97 Assessment And Plan - Plan Physical Exam General: Alert, In no apparent distress, Oriented x3, Cooperative Neck: Supple, No LAD, Without JVD. Respiratory: Clear to auscultation bilaterally, Normal air movement Cardiovascular: No edema, Regular rate/rhythm, Normal S1 S2 Gastrointestinal: Normal bowel sounds, mild right upper quadrant tenderness. Musculoskeletal: No clubbing, No swelling, No contractures, No tenderness Integumentary: No rashes, No breakdown. Neurological: Normal gait, Normal speech, Normal strength at 5/5 x4 extr, Normal tone, Normal affect Lymphatics: No axilla or inguinal lymphadenopathy Assessment and plan Chest pain. Troponin trended up slightly. Cardio input appreciated. ACS is unlikely. Patient with HIDA scan indicating acute cholecystitis and may need lap cholecystectomy. Cardiology Dr. Orr recommended nuclear stress test for preop eval. Echocardiogram result is pending. Continue aspirin Hold for lap cholecystectomy after stress test. Epigastric pain/acute cholecystitis. MRCP indicates "Nonspecific pericholecystic fluid" and "6 mm cystic lesion in the pancreatic body could represent a pancreatic cyst, pseudocyst, or a small intraductal papillary mucinous neoplasm." Surgeon consulted, patient seen by Dr. Car. HIDA scan suggest acute cholecystitis. Dr. Car has scheduled patient for lap cholecystectomy. Continue empiric antibiotic. CKD 3A: Baseline functions unknown. We will continue to monitor renal functions. DM2. Patient denies being a diabetic although patient was started on a weekly diabetic subcutaneous medication and has had 3 shots. Hemoglobin A1c currently is 7.2. BS monitoring with sliding scale insulin. Hyperlipidemia. Patient placed on statin. Hypothyroidism. Continue Synthroid. Hypertension. Continue home medications and hydralazine as needed. BPH. Continue Flomax. DVT prophylaxis: Heparin subQ. Physician Review: Patient Assessed, Agree with Above Assessment and Plan
[2023-06-10] MEDS: ATORVASTATIN 20 MG TAB PO SCH (22:13)
[2023-06-10] MEDS: TAMSULOSIN 0.4 MG SR CAP PO SCH (22:13)
[2023-06-10] MEDS ORDERED: MAGNESIUM HYDROXIDE 8% 30 ML PO PRN (22:25)
[2023-06-11] MEDS: PIPER TAZO 3.375 GM in NA CHLORIDE 0.9% 100 ML IV SCH ×3 (00:18→17:07)
[2023-06-11 04:38] LABS: Absolute Lymphocytes (CBC) 1.5 K/uL (0.7-4.9); Lymphocytes % 13.3 % (15.3-44.8); MCV 91.8 fL (80-100); Potassium 3.8 mEq/L (3.5-5.1); RBC Red Blood Cell Count 4.69 M/uL (4.33-5.43)
[2023-06-11] MEDS ORDERED: KCL 20 MEQ/100 mL IVPB 20 MEQ/100 ML BAG IV SCH (05:07)
[2023-06-11] MEDS: NA CHLORIDE 0.9% 0 ML ONE (05:43)
[2023-06-11] MEDS ORDERED: REGADENOSON 0.4 MG/5 ML SYR IV ONE (07:13)
[2023-06-11] MEDS: INSULIN -REGULAR HUMAN 50 UNIT/0.5 ML ML SQ SCH ×4 (07:30→20:58)
--- NOTE | 2023-06-11 08:35 | ECHO ---
HEIGHT: 5 ft 5 in WEIGHT: 174 lb 3.2 oz DATE OF STUDY: 06/10/[address]: Brent Kidd 2-DIMENSIONAL: YES M.MODE: YES DOPPLER: YES COLOR FLOW: YES TDS: PORTABLE: YES DEFINITY: BUBBLE STUDY: DIAGNOSIS: CHEST PAIN CARDIAC HISTORY: CATHERIZATION: SURGERY: YES PROSTHETIC VALVE: PACEMAKER: MEASUREMENTS (cm) DIASTOLIC (NORMALS) SYSTOLIC (NORMALS) IVSd 0.8 (0.6-1.2) LA Diam (1.9-4.0) LVEF 65% LVIDd 4.7 (3.5-5.7) LVIDs 3.0 (2.0-3.5) %FS 35% LVPWd 1.1 (0.6-1.2) Ao Diam 2.6 (2.0-3.7) 2 DIMENSIONAL ASSESSMENT: RIGHT ATRIUM: NORMAL LEFT ATRIUM: NORMAL RIGHT VENTRICLE: NORMAL LEFT VENTRICLE: NORMAL TRICUSPID VALVE: NORMAL MITRAL VALVE: NORMAL PULMONIC VALVE: NORMAL AORTIC VALVE: NORMAL PERICARDIAL EFFUSION: NONE AORTIC ROOT: NORMAL LEFT VENTRICULAR WALL MOTION: UNABLE TO EVALUATE DOPPLER/COLOR FLOW: SEE BELOW COMMENTS: 1. VERY POOR WINDOWS 2. UNABLE TO EVALUATE WALL MOTION 3. OVERALL LEFT VENTRICULAR EJECTION FRACTION APPEARS NORMAL 4. RECOMMEND CONTRAST ECHOCARDIOGRAM TECHNOLOGIST: HODA CLARKE
[2023-06-11] MEDS ORDERED: POTASSIUM CL SA 10 MEQ TAB PO ONE (09:00)
--- NOTE | 2023-06-11 09:00 | RAD REPORT ---
EXAM DESCRIPTION: NM - Rest Stress Cardiac Imaging - 06/11/2023 8:37 am CLINICAL HISTORY: Elevated troponin COMPARISON: None. TECHNIQUE: The patient was administered 10. 8mCi of Tc 99m Sestamibi prior to resting SPECT imaging of the heart. The patient was then administered 30. 3 mCi of Tc 99m Sestamibi following exercise or p harmacologic stress. Multiplanar SPECT images were reviewed. FINDINGS: Moderate to large area of diminished radiotracer uptake involves the inferoseptal left sarah tricle myocardium on rest and stress images. The small area of diminished radiotracer uptake involves the apical left ventricular myocardium on re st and stress sequences The left ventricular ejection fraction equals 53% IMPRESSION: Moderate to large apparent fixed perfusion defect involving the inferoseptal left ventri cular myocardium presumably infarction Small apparent fixed perfusion defect involving apical left ventricular myocardium presumably infarct ion No evidence of stress-induced ischemia
[2023-06-11] MEDS: LEVOTHYROXINE SOD 0.05 MG TABLET PO SCH (09:03)
--- NOTE | 2023-06-11 14:53 | P.PN ---
Subjective Date of Service: 06/11/23 Chief Complaint: Epigastric pain\\chest pain Patient has no complaint except intermittent right upper quadrant pain. Troponin trended down with the last check. Physical Examination - Vital Signs Temperature: 97.9 F Blood Pressure: 115/64 Pulse: 76 Respirations: 16 Pulse Ox (%): 97 Assessment And Plan - Plan Physical Exam General: Alert, In no apparent distress, Oriented x3, Cooperative Neck: Supple, No LAD, Without JVD. Respiratory: Clear to auscultation bilaterally, Normal air movement Cardiovascular: No edema, Regular rate/rhythm, Normal S1 S2 Gastrointestinal: Normal bowel sounds, mild right upper quadrant tenderness. Integumentary: No rashes, No breakdown. Neurological: Normal gait, Normal speech, Normal strength at 5/5 x4 extr, Normal tone, Normal affect Lymphatics: No axilla or inguinal lymphadenopathy Assessment and plan Chest pain. Troponin trended up slightly and then trended down Cardio input appreciated. ACS is unlikely. Patient with HIDA scan indicating acute cholecystitis and may need lap cholecystectomy. Cardiology Dr. Orr recommended nuclear stress test for preop eval. Nuclear stress test shows fixed defect, no reversible ischemia. Echocardiogram result is pending. Continue aspirin Hold aspirin for lap cholecystectomy tomorrow. Epigastric pain/acute cholecystitis. MRCP indicates "Nonspecific pericholecystic fluid" and "6 mm cystic lesion in the pancreatic body could represent a pancreatic cyst, pseudocyst, or a small intraductal papillary mucinous neoplasm." Surgeon consulted, patient seen by Dr. Car. HIDA scan suggest acute cholecystitis. Dr. Car has scheduled patient for lap cholecystectomy tomorrow. Continue empiric antibiotic. CKD 3A: Baseline functions unknown. We will continue to monitor renal functions. DM2. Patient denies being a diabetic although patient was started on a weekly diabetic subcutaneous medication and has had 3 shots. Hemoglobin A1c currently is 7.2. BS monitoring with sliding scale insulin. Hyperlipidemia. Patient placed on statin. Hypothyroidism. Continue Synthroid. Hypertension. Continue home medications and hydralazine as needed. BPH. Continue Flomax. DVT prophylaxis: Heparin subQ.
[2023-06-11] MEDS: ATORVASTATIN 20 MG TAB PO SCH (20:38)
[2023-06-11] MEDS: TAMSULOSIN 0.4 MG SR CAP PO SCH (20:38)
[2023-06-11] MEDS: HYDRALAZINE HCL 20 MG/ML VIAL IV PRN (20:39)
[2023-06-12] MEDS: PIPER TAZO 3.375 GM in NA CHLORIDE 0.9% 100 ML IV SCH ×3 (00:12→18:14)
[2023-06-12 03:40] LABS: Potassium 3.9 mEq/L (3.5-5.1)
[2023-06-12] MEDS ORDERED: KCL 20 MEQ/100 mL IVPB 20 MEQ/100 ML BAG IV SCH (07:00)
[2023-06-12] MEDS: NA CHLORIDE 0.9% 0 ML ONE (07:22)
[2023-06-12] MEDS ORDERED: NA CHLORIDE 0.9% 250 ML ONE (07:29)
[2023-06-12] MEDS: LEVOTHYROXINE SOD 0.05 MG TABLET PO SCH (07:30)
[2023-06-12] MEDS: INSULIN -REGULAR HUMAN 50 UNIT/0.5 ML ML SQ SCH ×4 (07:30→21:00)
--- NOTE | 2023-06-12 08:52 | TREADPHA ---
DX: ELEVATED TROPONIN Date of Study: 06/11/2023 Ht: 5' 5 " Wt: 174 lb 3.2 oz Consulting Physician: RUFINO MEDICATIONS: KCL, SYNTHROID, ZOSYN, FLOMAX, LIPITOR, HYDRALAZINE HISTORY: 77 YEAR OLD MALE WITH COMPLAINTS OF CHEST PRESSURE. HISTORY OF CORONARY ARTERY BYPASS GRAFT, CORONARY ARTERY DISEASE, HYPERTENSION. PATIENT STATES ALLERGIES TO SULFA AND MORPHINE. PHYSICIAL EXAMINATION: RESTING B.P.: 89 RESTING H.R.: 128/63 RESTING EKG: SINUS RHYTHM WITH DIFFUSE T WAVE ABNORMALITY AND Q IN ANTERIOR LEADS PROTOCOL: PHARMACOLOGIC EXERCISE TIME: 3:30 B.P. AT PEAK STRESS: 95/48 IMPRESSION: LEXISCAN INJECTED. CARDIOLITE INJECTED - SEE NUCLEAR MEDICINE REPORT. NO SUPRAVENTRICULAR TACHYCARDIA, VENTRICULAR TACHYCARDIA, PREMATURE ATRIAL COMPLEXES NOTED. OCCASIONAL PREMATURE VENTRICULAR COMPLEXES NOTED IN RECOVERY. PATIENT DENIES CHEST PAIN OR SHORTNESS OF BREATH. NO ELECTROCARDOGRAM CHANGES OF ISCHEMIA WITH LEXISCAN.
[2023-06-12] MEDS: HYDRALAZINE HCL 20 MG/ML VIAL IV PRN (10:18)
--- NOTE | 2023-06-12 13:18 | CON ---
Date of Consultation: 06/10/2023 Brief History Of Present Illness: The patient is a 77-year-old male with past medical history signif icant for hypothyroidism, hypertension, coronary artery disease, myocardial infarction, status post C ABG, BPH, prostate cancer, diabetes, who presents with chest pain in the epigastric region. That mor andreia, he came with significant pain, tightness quality in the chest and epigastric area. He started a new medication for his diabetes and his last A1c was reportedly in the 8 range. He noted that the pain with sometimes radiated to the back and he has been dealing with intermittent similar type pain, but not this level of severity for several months prior to his presentation. When the pain got sign ificant, he came to the ER. Workup began for both cardiovascular as well as biliary etiology of his symptoms. Past Medical History: Significant for hypertension, coronary artery disease, myocardial infarction, BPH, prostate cancer, diabetes, hypothyroidism. Past Surgical History: Includes CABG. Allergies: TO MORPHINE AND SULFA. Home Medications: Included levothyroxine, losartan, metoprolol, red yeast rice, aspirin, and Flomax. Review of Systems: Ten-point review of systems other than HPI, denies. Family History: Noncontributory. Social History: He denies smoking, alcohol, recreational drug use. Physical Examination: General: At the time of my examination; he is awake, alert, oriented. Psychiatric: He is appropriate, conversive. HEENT: Normocephalic. Sclerae anicteric. Mucous membranes moist. Oropharynx clear. Neck: Supple without JVD. Chest: Expansion and excursion. Cardiovascular: Regular rate and rhythm. Pulmonary: Clear to auscultation bilaterally. Abdomen: Soft with mild right upper quadrant tenderness to palpation, particularly on deep palpation . No rebound. No guarding. No focal peritonitis. Weakly positive Phillip sign. His abdomen is obe se otherwise. Extremities: No clubbing, cyanosis, edema. Skin: Warm and dry. Laboratory Data: Revealed a white blood cell count of 15.2, hemoglobin 14.4, hematocrit of 41.7, jake telet count 252. His lymphocytes were 12.5. Sodium 135, potassium 3.8, chloride 105, carbon dioxide 26, BUN 19, creatinine 1.4, glucose is 144, calcium 9.1. His troponin was elevated on admission, in itial read was negative and the following subsequent one was 94. Triglycerides was 674. His cholest stewart LDL is 53, HDL 29. His UA was essentially negative. He had multiple imaging studies included a n abdominal ultrasound on 06/09, officially read as unremarkable exam. Gallbladder demonstrates no g allstones, no pericholecystic fluid or gallbladder wall thickening. Common bile duct is normal, lion uring 4 mm. He had an abdomen and pelvis and chest CT, officially read as no definite acute findings identified within the chest, abdomen, and pelvis. Subtle stranding near the gallbladder neck, commo n hepatic duct and proximal common bile duct, etiology uncertain, particularly given the unremarkable gallbladder ultrasound suggests correlated LFTs. If abnormal, could consider MRCP. Nonobstructive bilateral nephrolithiasis including a moderate-size staghorn type 16 stone in the renal pelvis. He t hen following had an MRCP on 06/09/2023, officially read as nonspecific pericholecystic fluid, negati ve for cholelithiasis, choledocholithiasis. This could be secondary to underlying liver disease. A 6 mm cystic lesion of the pancreatic body could represent a pancreatic cyst, pseudocyst or small IPMN . A 12-month followup MRCP suggested. I then noted the patient had a HIDA scan performed on 06/10. This was officially read as nonvisualization of the radiotracer within the gallbladder, may indicate acute cholecystitis. Assessment And Plan: This is a 77-year-old male, who comes in with abdominal pain/chest pain, possib ly combined cardiac biliary symptoms. 1.Dr. Orr is going to evaluate the patient and perform a stress test prior to any surgical interv ention. 2.The patient's symptoms are mild at this point and continued to improve by his report and as such, I will await Dr. Orr's disposition prior to consideration for surgical intervention. If Dr. Eunice armstrong gives us cardiac clearance, we will proceed with a laparoscopic possible open cholecystectomy with indocyanine green cholangiography. I have explained the risks, benefits, and alternatives of the abo ve-stated plan including, but not limited to bleeding, infection, damage to surrounding tissues, need for further operation and procedures, injury to bile ducts and intestines, blood clot, strokes, hear t attacks, need for ongoing surgical procedures, I have also explained nonoperative management and wong ving his biliary system on a later date should he have any cardiovascular issues which would preclude a safe surgical intervention. The patient agrees to proceed as indicated. Thank you for this interesting consult. MIGUEL ANGEL Voice ID: [id number] Report ID: [id number]
[2023-06-12] MEDS ORDERED: NA CHLORIDE 0.9% 1,000 ML ONE ×2 (14:42→17:42)
[2023-06-12] MEDS ORDERED: BUPIVACAINE 0.25% PF 10 ML VIAL ONE (15:31)
[2023-06-12] MEDS ORDERED: propofoL 200 MG/20 ML VIAL IV ONE (15:37)
[2023-06-12] MEDS ORDERED: MIDAZOLAM HCL 2 MG/2 ML INJ ONE (15:37)
[2023-06-12] MEDS ORDERED: LIDOCAINE 2% MPF 5 ML VIAL ONE (15:37)
[2023-06-12] MEDS ORDERED: FENTANYL CITR 100 MCG/2 ML ONE ×2 (15:37→16:41)
[2023-06-12] MEDS ORDERED: ONDANSETRON 4 MG/2 ML VIAL ONE (15:41)
[2023-06-12] MEDS ORDERED: GLYCOPYRROLATE 0.2 MG/ML SYR ONE (15:42)
[2023-06-12] MEDS ORDERED: NEOSTIGMINE 1 MG/ML -10 ML VIAL ONE (15:42)
[2023-06-12] MEDS ORDERED: ROCURONIUM 50 MG/5 ML VIAL IV ONE (15:42)
--- NOTE | 2023-06-12 15:50 | P.PN ---
Subjective Date of Service: 06/12/23 Chief Complaint: Epigastric pain\\chest pain Patient has no new complaint. He is scheduled for lap cholecystectomy today. Physical Examination - Vital Signs Temperature: 98.5 F Blood Pressure: 135/64 Pulse: 95 Respirations: 18 Pulse Ox (%): 97 Assessment And Plan - Plan Physical Exam General: Alert, In no apparent distress, Oriented x3, Cooperative Neck: Supple, No LAD, Without JVD. Respiratory: Clear to auscultation bilaterally, Normal air movement Cardiovascular: No edema, Regular rate/rhythm, Normal S1 S2 Gastrointestinal: Normal bowel sounds, mild right upper quadrant tenderness. Integumentary: No rashes, No breakdown. Neurological: Normal gait, Normal speech, Normal strength at 5/5 x4 extr, Normal tone, Normal affect Lymphatics: No axilla or inguinal lymphadenopathy Assessment and plan Chest pain. Troponin trended up slightly and then trended down Cardio input appreciated. ACS is unlikely. HIDA scan indicating acute cholecystitis and may need lap cholecystectomy. Cardiology Dr. Orr recommended nuclear stress test for preop eval. Nuclear stress test shows fixed defect, no reversible ischemia. Echocardiogram result is pending. Continue aspirin. Medical condition is optimal for surgery per Cardiology-Dr. Orr. Hold aspirin for lap cholecystectomy today Epigastric pain/acute cholecystitis. MRCP indicates "Nonspecific pericholecystic fluid" and "6 mm cystic lesion in the pancreatic body could represent a pancreatic cyst, pseudocyst, or a small intraductal papillary mucinous neoplasm." Surgeon consulted, patient seen by Dr. Car. HIDA scan suggest acute cholecystitis. Dr. Car has scheduled patient for lap cholecystectomy tomorrow. Continue empiric antibiotic. CKD 3A: Baseline functions unknown. We will continue to monitor renal functions. DM2. Patient denies being a diabetic although patient was started on a weekly diabetic subcutaneous medication and has had 3 shots. Hemoglobin A1c currently is 7.2. BS monitoring with sliding scale insulin. Hyperlipidemia. Patient placed on statin. Hypothyroidism. Continue Synthroid. Hypertension. Continue home medications and hydralazine as needed. BPH. Continue Flomax. DVT prophylaxis: Heparin subQ.
[2023-06-12] MEDS ORDERED: SUCCINYLCHOLINE 20 MG/ML (10 ML) IV ONE (15:51)
--- NOTE | 2023-06-12 17:06 | P.OP ---
Preoperative diagnosis: Acute Cholecystitis Postoperative diagnosis: Acute Cholecystitis Primary procedure: Laparoscopic cholecystectomy with ICG Cholangiography Anesthesia: GETA + Local Estimated blood loss: <10cc Specimen: Gallbladder Findings: Severe Adhesions, Purulent Bile Complications: None Transferred to: Recovery Room Condition: Good
[2023-06-12] MEDS ORDERED: TRAMADOL HCL 50 MG TAB PO PRN (17:14)
[2023-06-12] MEDS ORDERED: SUGAMMADEX SODIUM 200 MG/2 ML VIAL IV ONE (17:30)
[2023-06-12] MEDS ORDERED: KETOROLAC 30 MG/ML INJ ONE (17:39)
[2023-06-12] MEDS ORDERED: MEPERIDINE HCL 25 MG/ML SYR ONE (17:42)
[2023-06-12] MEDS ORDERED: ACETAMINOPHEN 500 MG TAB ONE (17:57)
[2023-06-12] MEDS: ATORVASTATIN 20 MG TAB PO SCH (21:54)
[2023-06-12] MEDS: TAMSULOSIN 0.4 MG SR CAP PO SCH (21:55)
--- NOTE | 2023-06-12 22:48 | PN ---
Date of Progress Note: 06/12/2023 Subjective: Seen by bedside, has no further chest pain. Stress test was negative for stress-induced ischemia. Review of Systems: No chest pain, shortness of breath, orthopnea, cough. No nausea, vomiting, diarrhea. All other syst ems reviewed are negative. Physical Examination: Vital Signs: Reviewed. Head and Neck: Pupils are equal, reactive to light. Intact eye movements. No JVD. No cervical loc nopathy. Neck is supple. Thyroid is not enlarged. Lungs: Clear to auscultation bilaterally. No rhonchi, wheezing, or crackles. No accessory muscle u se. Heart: Regular rate and rhythm. No extra sounds. Abdomen: Soft. Bowel sounds positive. No rigidity or rebound. Extremities: No edema, clubbing, or cyanosis. Intact pulses. Skin: No rash. Neurologic: Alert, awake, oriented x3. No acute focal deficit was appreciated. Investigations: Last troponin was 94. Cardiac stress test was negative for ischemia. White blood c ount is 11, hemoglobin is 14.6. BUN is 23, creatinine 1.48. Assessment/recommendations: 1.Chest pain with elevated troponin. This is demand ischemia. Stress test was negative. Continue aspirin and statin. 2.Preop cardiac assessment with a positive troponin. This is likely demand ischemia. Stress test i s negative. He is at low cardiac risk. Here to proceed with surgery. I discussed the case with Dr. Car. 3.Dyslipidemia. Continue statin. Cardiology will sign off from the case. SR/MODL Voice ID: [id number] Report ID: [id number]
[2023-06-13] MEDS: PIPER TAZO 3.375 GM in NA CHLORIDE 0.9% 100 ML IV SCH ×2 (01:55→08:50)
[2023-06-13 02:03] VITALS: O2SAT 96
[2023-06-13 03:02] LABS: Absolute Lymphocytes (CBC) 1.3 K/uL (0.7-4.9); Hematocrit 37.1 % (39.6-49.0); MCV 92.8 fL (80-100); MPV 7.7 fL (7.6-11.3); RBC Red Blood Cell Count 3.99 M/uL (4.33-5.43)
[2023-06-13 03:16] LABS: Albumin 2.7 g/dL (3.4-5.0); Bilirubin Total 0.3 mg/dL (0.2-1.0); Potassium 4.1 mEq/L (3.5-5.1); Protein, Total 6.7 g/dL (6.4-8.2)
--- NOTE | 2023-06-13 03:30 | OP ---
Date of Procedure: 06/12/2023 Surgeon: Kvng Car MD, Preoperative Diagnosis: Acute cholecystitis. Postoperative Diagnosis: Acute cholecystitis. Procedure Performed: Laparoscopic cholecystectomy with indocyanine green cholangiography. Anesthesia: General endotracheal plus local with 0.25% Marcaine. Estimated Blood Loss: Less than 10 cc. Specimen: Gallbladder. Findings: 1.Severe adhesions located in the right upper quadrant from colon to gallbladder as well as omental attachments to both the gallbladder as well as to the abdominal wall draping over the liver and the r ight lobe of the liver requiring mobilization. 2.Purulent cholecystitis with significant inflammatory rind over the anterior surface of the gallbla dder was noted. 3.Gallbladder was distended at the beginning of the procedure. Complications: None. Implants: None. Disposition: The patient was transferred to the recovery room in good condition. Procedure In Detail: After informed consent was obtained, patient was brought to the operating room, prepped and draped in the usual sterile fashion after adequate anesthesia achieved. I anesthetized an area of the supraumbilical position down to subcutaneous tissues. An incision was made with a 15 blade down to subcutaneous tissues. I then used a 5 mm optical trocar which was introduced in the ab domen without evidence of complication under direct vision. There was no injury to vital structures upon entry into the abdomen. Two additional trocars were placed, one in the epigastrium and one in r ight upper quadrant. Both of these were similarly anesthetized and sharply incised. A 5 mm trocar w as placed under direct visualization without evidence of complication. The umbilical trocar was then upsized to a 12 mm under direct visualization without evidence of complication. The patient positio ana head up right-side up position. Ratcheted grasper was used to try to attempt to drape and bring down the omentum off the anterior surface of the gallbladder which required significant dissection pr edominately. Blunt dissection was performed around the dome of the gallbladder to allow for mobiliza tion of the gallbladder. There were some significant attachments between other structures described as above including omentum and colon. The colonic tissue was not directly in apposition to the gallb ladder. However, some of the epiploic appendages were in close apposition. Combination of blunt dis section as well as minimal electrocautery was used to mobilize the colon away from the gallbladder an d hepatic fossa region and off the anterolateral abdominal wall to allow for proper visualization of the gallbladder in its entirety. After this was performed, I dissected down, attempted to grasp now the dome of the gallbladder and the fundic region which was unable to be grasped due to significant d istention of the gallbladder, had discoloration changes and significant hydropic appearance of the ga llbladder. A decompression needle was then brought in and used to decompress the gallbladder, which purulent material consistent with abscess/infected bile, was removed at this point to allow for grasp ing of the gallbladder. Gallbladder had a significant thick rind still making grasping quite difficu lt. However, I grasped the gallbladder near the fundus, placed towards the patient's right shoulder and continued dissection down to the Serina pouch of the gallbladder. I took down the inflammatory rind off the anterior surface of the gallbladder using minimal electrocautery through the peritoneal attachments and then mobilized circumferentially and 2 structures identified as both the cystic duct and cystic artery. I continued to skeletonize these structures until completely visualized and a cr itical view of safety was obtained at this point. I then performed ICG, indocyanine green, cholangio graphy at this point. However, there was no filling of any indocyanine green material into the gallb ladder or into the cystic duct consistent with significant inflammatory changes appreciated during th e procedure. I could not manipulate or use maneuvers to allow bile passage of the gallbladder. As s uch, the common duct appeared to be visualized through the adipose tissue which was quite deep to thi s, but there was inflammatory tissue over the top of this and as such, I decided not try to mobile or visualize the common duct at this point. As such, having the critical view of safety obtained at th is point and seeing the confluence of the cystic duct-gallbladder junction, I then, after these struc tures were skeletonized as described above, placed double titanium clips on the proximal side, singly on the distal side of both cystic duct and cystic artery. These structures were then ligated using Endo Brad. The gallbladder was then removed from the hepatic fossa requiring increased fulguration due to the significant inflammatory change. The gallbladder had hydropic appearance with fluid and required frequent suctioning in between electrocautery to allow for good visualization of the bed aft er the gallbladder was moved and it was placed in EndoCatch bag, removed through umbilical trocar sit e, and sent off for pathologic examination. Minimal electrocautery was required at the fundic portio n of the gallbladder bed/hepatic fossa at this point to achieve hemostasis. The area was copiously i rrigated multiple times and suctioned out completely dry. No bleeding or additional maneuvers requir ed at this point. Clips found to be in good anatomic position at the end of the procedure and then s uctioned out the remaining effluent. The patient positioned back in neutral position. Remaining eff luent was suctioned out, irrigated one last time. The effluent was completely clear without any evid ence of bleeding or bile. I suctioned out one last time. ICG cholangiography confirmed that there w as no bilious leakage into the effluent at this point. I then removed the umbilical trocar and close d the umbilical trocar site using a Adis-Eduarda suture passer with 0 Vicryl in an interrupted fas hion with good approximation of tissues. The abdomen was completely desufflated under direct visuali zation without evidence of complication. Remaining trocars removed. All skin incisions were then co piously irrigated and closed with a 4-0 Monocryl in a running fashion. Dermabond placed over top. T he patient tolerated the procedure well without evidence of complication and transferred to PACU in g ood condition. All counts were correct at the end of the case. MERE/STEVE Voice ID: [id number] Report ID: [id number]
[2023-06-13] MEDS: INSULIN -REGULAR HUMAN 50 UNIT/0.5 ML ML SQ SCH (07:30)
[2023-06-13 08:34] VITALS: BP 139/52; TEMP 99.6
[2023-06-13] MEDS: LEVOTHYROXINE SOD 0.05 MG TABLET PO SCH (08:54)
--- NOTE | 2023-06-13 11:04 | P.DS ---
Admission Date: 06/09/23 Discharge Date: 06/13/23 Disposition: ROUTINE DISCHARGE Discharge Condition: GOOD Reason for Admission: Epigastric pain\\chest pain Brief History of Present Illness: Patient is a 77-year-old male with a past medical history significant for hypothyroidism, hypertension, CAD, NM, BPH, DM 2 who presented with complaint of pain located in the epigastric area.. Patient rated pain as 6/10 in severity and described pain as tightness in quality. Patients spouse reported that patient was recently started on a weekly diabetic medication for his " prediabetes". Patient also reported that his A1c was 8. Patient reported associated signs and symptoms of right upper quadrant pain, diaphoresis and headache. Hospital Course: Patient was admitted to the medical floor and the following medical problems addressed: Chest pain. Troponin trended up slightly and then trended down Patient seen by cardiology Dr. Orr ACS is unlikely. HIDA scan indicated acute cholecystitis. Cardiology Dr. Orr recommended nuclear stress test for preop eval. Nuclear stress test shows fixed defect, no reversible ischemia. Echocardiogram study was suboptimal with poor window but reported as unremar kable. Continued aspirin. Patient underwent lap cholecystectomy. Epigastric pain/acute cholecystitis. MRCP indicates "Nonspecific pericholecystic fluid" and "6 mm cystic lesion in the pancreatic body could represent a pancreatic cyst, pseudocyst, or a small intraductal papillary mucinous neoplasm." Surgeon consulted, patient seen by Dr. Car. HIDA scan suggest acute cholecystitis. Patient underwent lap cholecystectomy. He was treated empirically with IV antibiotics. Patient condition has been stable after lap cholecystectomy and deemed stable for discharge. CKD 3A: Baseline functions unknown. DM2. Patient denies being a diabetic although patient was started on a weekly diabetic subcutaneous medication and has had 3 shots. Hemoglobin A1c currently is 7.2. Blood sugar was managed with insulin sliding scale. Hyperlipidemia. Patient placed on statin. Hypothyroidism. Continued Synthroid. Hypertension. Continued home medications. BPH. Continued Flomax. Pancreatic lesion Patient has been informed of a lesion in the pancreas which could indicate malignancy. Patient has been informed to follow-up with GI to evaluate him for biopsy of the pancreatic lesion. Patient voiced understanding. Vital Signs/Physical Exam: Temp Pulse Resp BP Pulse Ox 99.6 F 103 H 18 139/52 L 96 06/13/23 08:00 06/13/23 08:00 06/13/23 08:00 06/13/23 08:00 06/13/23 08:00 General: Alert, In no apparent distress, Oriented x3 HEENT: Mucous membr. moist/pink Neck: Supple, JVD not distended Respiratory: Clear to auscultation bilaterally, Normal air movement Cardiovascular: No edema, Regular rate/rhythm, Normal S1 S2 Gastrointestinal: Soft and benign, Non-distended, No tenderness Musculoskeletal: No swelling Integumentary: No cyanosis Neurological: Normal strength at 5/5 x4 extr, Cranial nerves 3-12 intact Laboratory Data at Discharge: WBC 11.20 thou/uL (4.3-10.9) H 06/13/23 02:29 Hgb 12.4 g/dL (13.6-17.9) L 06/13/23 02:29 Hct 37.1 % (39.6-49.0) L 06/13/23 02:29 Plt Count 230 thou/uL (152-406) 06/13/23 02:29 PT 9.7 SECONDS (9.2-12.8) 06/09/23 11:25 INR 0.80 06/09/23 11:25 Sodium 136 mEq/L (136-145) 06/13/23 02:29 Potassium 4.1 mEq/L (3.5-5.1) 06/13/23 02:29 BUN 22 mg/dL (7-18) H 06/13/23 02:29 Creatinine 1.56 mg/dL (0.70-1.30) H 06/13/23 02:29 Glucose 144 mg/dL (74-106) H 06/13/23 02:29 Phosphorus 3.4 mg/dL (2.5-4.9) 06/09/23 21:08 Magnesium 1.8 mg/dL (1.6-2.4) 06/09/23 21:08 Total Bilirubin 0.3 mg/dL (0.2-1.0) 06/13/23 02:29 AST 49 U/L (15-37) H 06/13/23 02:29 ALT 75 U/L (16-61) H 06/13/23 02:29 Alkaline Phosphatase 65 U/L (45-117) 06/13/23 02:29 Triglycerides 674 mg/dL (<150) H 06/10/23 02:49 Cholesterol 129 mg/dL (<200) 06/10/23 02:49 LDL Cholesterol Direct 53 mg/dL (100-129) L 06/10/23 02:49 HDL Cholesterol 29 mg/dL (40-60) L 06/10/23 02:49 Cholesterol/HDL Ratio 4.45 06/10/23 02:49 Lipase 53 U/L (13-75) 06/09/23 11:25 Home Medications: Levothyroxine Sodium 50 mcg PO DAILY 06/09/23 Losartan Potassium 100 mg PO DAILY 06/09/23 Metoprolol Tartrate 50 mg PO BID 06/09/23 Red Yeast Rice 600 mg PO DAILY 06/09/23 Aspirin [Natalio Chewable] 81 mg PO M,W,F 06/10/23 Mv-Min/Folic/K1/Lycopen/Lutein [Centrum Silver Men Tablet] 1 tab PO DAILY 06/10/23 Tamsulosin [Flomax] 0.4 mg PO BEDTIME 06/10/23 Tirzepatide [Mounjaro] 2.5 mg SQ SEECOM 06/10/23 Zinc Methionine Sulfate/Copper [Zinc Balance 15-1 mg Capsule] 1 cap PO DAILY 06/10/23 Followup: Kvng Car MD [ACTIVE - CAN ADMIT] - NONE,NONE [Primary Care Provider] - Time spent managing pt's care (in minutes): 36
--- NOTE | 2023-06-13 20:30 | PN ---
Date of Progress Note: 06/13/2023 Subjective: Seen by bedside, status post laparoscopic cholecystectomy, doing well. No chest pain. No cardiac complications. Review of Systems: No chest pain, shortness of breath, orthopnea, or cough. No nausea, vomiting, or diarrhea. All othe r systems were reviewed and they were negative. Objective: Vital Signs: Reviewed. Head and Neck: Pupils are equal, reactive to light. Intact eye movements. No JVD. No cervical lym phadenopathy. Neck is supple. Thyroid is not enlarged. Lungs: Clear to auscultation bilaterally. No rhonchi, wheezing, or crackles. No accessory muscle u se. Heart: Regular rate and rhythm. No extra sounds. Abdomen: Soft and nontender. Bowel sounds positive. No organomegaly. No masses or hernia. No rig idity or rebound. Extremities: No edema, clubbing, or cyanosis. Intact pulses. Skin: No rash. No nodules. Neurologic: Alert, awake, oriented x3. No acute focal deficit was appreciated. Investigations: Labs were reviewed. Assessment And Recommendations: 1.Elevated troponin. This is due to demand ischemia. Negative stress test. Patient was reassured. From Cardiology standpoint, patient can be released and follow up as an outpatient. 2.Preop assessment. The patient went through the surgery without complications. No further cardiac care is needed. Cardiology will sign off. SR/MODL Voice ID: [id number] Report ID: [id number]
== END 2023-06-13 11:07 | disposition home or self-care (01) | DRG 418 ==
LOC: ER 10:57 → ERHOLD 17:29 → 2ND 22:39
PROVIDERS: ADMIT Hospitalist; ATTEND Internal Medicine
PROC: BF121ZZ Fluoroscopy of Gallbladder using Low Osmolar Contrast (ICD-10-PCS; 2023-06-12)
PROC: BF52200 Other Imaging of Gallbladder using Fluorescing Agent, Indocyanine Green Dye, Intraoperative (ICD-10-PCS; 2023-06-12)
PROC: 0FT44ZZ Resection of Gallbladder, Percutaneous Endoscopic Approach (ICD-10-PCS; principal; 2023-06-12 15:15)
DX: K81.0 Acute cholecystitis (principal); I24.8 Other forms of acute ischemic heart disease; K86.3 Pseudocyst of pancreas; E03.9 Hypothyroidism, unspecified; N40.0 Benign prostatic hyperplasia without lower urinary tract symptoms; N18.31 Chronic kidney disease, stage 3a; E11.22 Type 2 diabetes mellitus with diabetic chronic kidney disease; E78.5 Hyperlipidemia, unspecified; D72.829 Elevated white blood cell count, unspecified; I25.10 Atherosclerotic heart disease of native coronary artery without angina pectoris; I25.2 Old myocardial infarction; Z88.5 Allergy status to narcotic agent; Z88.2 Allergy status to sulfonamides; Z95.1 Presence of aortocoronary bypass graft; Z79.82 Long term (current) use of aspirin; Z79.890 Hormone replacement therapy; Z79.899 Other long term (current) drug therapy
CPT/HCPCS: 36415; 71045; 71260; 74177; 74181; 76705; 78226; 78452; 80048; 80053; 80061; 81001; 82947; 83036; 83690; 83735; 83880; 84100; 84439; 84443; 84484; 85025; 85610; 87040; 88304; 93005; 93017; 93306; A9500; A9537; J0360; J2001; J2175; J2250; J2405; J2543; J2704; J2710; J2785; J3010; J3480; J7030; J7050; Q9967

== ENCOUNTER → 2023-12-08 | Emergency (ER) | payer OTHER ==
--- OUTSIDE RECORDS SUMMARY | 2023-12-08 09:03 | XMS REPORT | Continuity of Care Document ---
Author Name Unknown Address [address] [facility] [address] [place] [address] [facility] thconnect Address [address] [facility] [address] [place] [address] Care Team Providers Care Wire Rigger Name Role Phone Sandie Tesfaye Attending Clinician Unavailable Payers Payer Name Policy Type Policy Number Effective Date Expirati on Date Source [facility] Advantage PPO 53 [id number] 2021 00:00:00 [facility] Problems Condition Name Condition Details Condition Category Status Onset Date Resolution Date Last Treatment Date Treating Clinician Comments Source [id number] Increased urinary frequency Problem [facility] Impotence of organic origin ED (erectile dysfunctio n) Problem [facility] Coronary artery disease CAD (coronary artery disease) Problem [facility] [id number] History of prostate cancer Problem [facility] [id number] Sciatic leg pain Problem [facility] Hyperlipid emia Hyperlipid emia Problem [facility] [id number] Malignant melanoma of face excluding eyelid, nose, lip, and ear Problem [facility] [id number] Type 2 diabetes mellitus with other diabetic kidney complicati on Problem [facility] Hypertensi on Hypertensi on Problem [facility] [id number] Functional diarrhea Problem [facility] [id number] History of acute anterior wall DC Problem [facility] [id number] Abdominal bloating Problem [facility] [id number] Allergic rhinitis, unspecifie d Problem [facility] 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, without long-term current use of insulin, unspecifie d CKD stage Problem [facility] [id number] Stage 3b chronic kidney disease Problem [facility] Type II diabetes mellitus well controlled Diabetes mellitus type 2, controlled Problem [facility] Hypothyroi dism Hypothyroi dism Problem [facility] Allergies, Adverse Reactions, Alerts Allergy Name Allergy Type Status Severity Reaction(s) Onset Date Inactive Date Treating Clinician Comments Source Morphine Morphine Active anaphylaxis [facility] Social History Social Habit Start Date Stop Date Quantity Comments Source History of Tobacco Use [facility] Sex Assigned At [facility] Smoking Status Start Date Stop Date Source Never Smoker [facility] Medications Ordered Medication Name Filled Medication Name Start Date Stop Date Current Medication? Ordering Clinician Indication Dosage Frequency Signature (SIG) Comments Components Source Mounjaro 5 MG/0.5ML Mounjaro 5 MG/0.5ML 03-31 00:00: 00 No Mounjaro 5 MG/0.5ML Mounjaro 5 MG/0.5ML Mounjaro 5 MG/0.5ML 03-31 00:00: 00 No Mounjaro 5 MG/0.5ML Mounjaro 5 MG/0.5ML Mounjaro 5 MG/0.5ML 03-31 00:00: 00 No Mounjaro 5 MG/0.5ML Glimepiride 2 MG Glimepiride 2 MG 12-05 00:00: 00 No 1{table t_with_ breakfa st_or_t he_firs t_main_ meal_of _the_da y} QD Glimepirid e 2 MG Glimepiride 2 MG Glimepiride 2 MG 12-05 00:00: 00 No 1{table t_with_ breakfa st_or_t he_firs t_main_ meal_of _the_da y} QD Glimepirid e 2 MG Montelukast Sodium 10 MG Montelukast Sodium 10 MG 04-20 00:00: 00 No 1{table t} QD Montelukas t Sodium 10 MG Fluticasone Propionate 50 MCG/ACT Fluticasone Propionate 50 MCG/ACT 04-20 00:00: 00 No 1{spray _in_eac h_nostr il} QD Fluticason e Propionate 50 MCG/ACT Montelukast Sodium 10 MG Montelukast Sodium 10 MG 04-20 00:00: 00 No 1{table t} QD Montelukas t Sodium 10 MG Fluticasone Propionate 50 MCG/ACT Fluticasone Propionate 50 MCG/ACT 04-20 00:00: 00 No 1{spray _in_eac h_nostr il} QD Fluticason e Propionate 50 MCG/ACT Simvastatin 40 MG Simvastatin 40 MG No 1{table t_in e_eveni ng} QD Simvastati n 40 MG Multivitami n Adult - Multivitami n Adult - No Multivitam in Adult - Metoprolol Tartrate 50 MG Metoprolol Tartrate 50 MG No 1{table t_with_ food} BID Metoprolol Tartrate 50 MG Levothyroxi ne Sodium 50 MCG Levothyroxi ne Sodium 50 MCG No Levothyrox ine Sodium 50 MCG Aspirin 81 81 MG Aspirin 81 81 MG No 1{table t} QD Aspirin 81 81 MG Glimepiride 2 MG Glimepiride 2 MG No 1{table t_with_ breakfa st_or_t he_firs t_main_ meal_of _the_da y} QD Glimepirid e 2 MG Losartan Potassium 100 MG Losartan Potassium 100 MG No 1{table t} QD Losartan Potassium 100 MG Saw [place] 450 MG Saw [place] 450 MG No Saw [place] 450 MG Fish Oil 1000 MG Fish Oil 1000 MG No 1{capsu le} QD Fish Oil 1000 MG Simvastatin 40 MG Simvastatin 40 MG No 1{table t_in_ e_eveni ng} QD Simvastati n 40 MG Multivitami n Adult - Multivitami n Adult - No Multivitam in Adult - Metoprolol Tartrate 50 MG Metoprolol Tartrate 50 MG No 1{table t_with_ food} BID Metoprolol Tartrate 50 MG Levothyroxi ne Sodium 50 MCG Levothyroxi ne Sodium 50 MCG No Levothyrox ine Sodium 50 MCG Aspirin 81 81 MG Aspirin 81 81 MG No 1{table t} QD Aspirin 81 81 MG Glimepiride 2 MG Glimepiride 2 MG No 1{table t_with_ breakfa st_or_t he_firs t_main_ meal_of _the_da y} QD Glimepirid e 2 MG Losartan Potassium 100 MG Losartan Potassium 100 MG No 1{table t} QD Losartan Potassium 100 MG Saw [place] 450 MG Saw [place] 450 MG No Saw [place] 450 MG Fish Oil 1000 MG Fish Oil 1000 MG No 1{capsu le} QD Fish Oil 1000 MG Simvastatin 40 MG Simvastatin 40 MG No 1{table t_in e_eveni ng} QD Simvastati n 40 MG Multivitami n Adult - Multivitami n Adult - No Multivitam in Adult - Metoprolol Tartrate 50 MG Metoprolol Tartrate 50 MG No 1{table t_with_ food} BID Metoprolol Tartrate 50 MG Levothyroxi ne Sodium 50 MCG Levothyroxi ne Sodium 50 MCG No Levothyrox ine Sodium 50 MCG Aspirin 81 81 MG Aspirin 81 81 MG No 1{table t} QD Aspirin 81 81 MG Glimepiride 2 MG Glimepiride 2 MG No 1{table t_with_ breakfa st_or_t he_firs t_main_ meal_of _the_da y} QD Glimepirid e 2 MG Losartan Potassium 100 MG Losartan Potassium 100 MG No 1{table t} QD Losartan Potassium 100 MG Saw [place] 450 MG Saw [place] 450 MG No Saw [place] 450 MG Levothyroxi ne Sodium 75 MCG Levothyroxi ne Sodium 75 MCG No QD Levothyrox ine Sodium 75 MCG Saw [place] 450 MG Saw [place] 450 MG No Saw [place] 450 MG Metoprolol Tartrate 50 MG Metoprolol Tartrate 50 MG No 1{table t_with_ food} BID Metoprolol Tartrate 50 MG Losartan Potassium 100 MG Losartan Potassium 100 MG No 1{table t} QD Losartan Potassium 100 MG Multivitami n Adult - Multivitami n Adult - No Multivitam in Adult - Simvastatin 40 MG Simvastatin 40 MG No 1{table t_in_th e_eveni ng} QD Simvastati n 40 MG Fish Oil 1000 MG Fish Oil 1000 MG No 1{capsu le} QD Fish Oil 1000 MG Aspirin 81 81 MG Aspirin 81 81 MG No 1{table t} QD Aspirin 81 81 MG Glimepiride 2 MG Glimepiride 2 MG No 1{table t} BID Glimepirid e 2 MG Levothyroxi ne Sodium 75 MCG Levothyroxi ne Sodium 75 MCG No QD Levothyrox ine Sodium 75 MCG Saw [place] 450 MG Saw [place] 450 MG No Saw [place] 450 MG Metoprolol Tartrate 50 MG Metoprolol Tartrate 50 MG No 1{table t_with_ food} BID Metoprolol Tartrate 50 MG Losartan Potassium 100 MG Losartan Potassium 100 MG No 1{table t} QD Losartan Potassium 100 MG Multivitami n Adult - Multivitami n Adult - No Multivitam in Adult - Simvastatin 40 MG Simvastatin 40 MG No 1{table t_in_th e_eveni ng} QD Simvastati n 40 MG Fish Oil 1000 MG Fish Oil 1000 MG No 1{capsu le} QD Fish Oil 1000 MG Aspirin 81 81 MG Aspirin 81 81 MG No 1{table t} QD Aspirin 81 81 MG Glimepiride 2 MG Glimepiride 2 MG No 1{table t} BID Glimepirid e 2 MG Levothyroxi ne Sodium 50 MCG Levothyroxi ne Sodium 50 MCG No QD Levothyrox ine Sodium 50 MCG Crestor 40 MG Crestor 40 MG No 1{table t} QD Crestor 40 MG Saw [place] 450 MG Saw [place] 450 MG No Saw [place] 450 MG Multivitami n Adult - Multivitami n Adult - No Multivitam in Adult - Metoprolol Tartrate 50 MG Metoprolol Tartrate 50 MG No 1{table t_with_ food} BID Metoprolol Tartrate 50 MG Januvia 50 MG Januvia 50 MG No Januvia 50 MG Fish Oil 1000 MG Fish Oil 1000 MG No 1{capsu le} QD Fish Oil 1000 MG Methocarbam ol 500 MG Methocarbam ol 500 MG No Methocarba mol 500 MG Aspirin 81 81 MG Aspirin 81 81 MG No 1{table t} QD Aspirin 81 81 MG Plavix 75 MG Plavix 75 MG No 1{table t} QD Plavix 75 MG Losartan Potassium 100 MG Losartan Potassium 100 MG No 1{table t} QD Losartan Potassium 100 MG Levothyroxi ne Sodium 50 MCG Levothyroxi ne Sodium 50 MCG No QD Levothyrox ine Sodium 50 MCG Crestor 40 MG Crestor 40 MG No 1{table t} QD Crestor 40 MG Saw [place] 450 MG Saw [place] 450 MG No Saw [place] 450 MG Multivitami n Adult - Multivitami n Adult - No Multivitam in Adult - Metoprolol Tartrate 50 MG Metoprolol Tartrate 50 MG No 1{table t_with_ food} BID Metoprolol Tartrate 50 MG Januvia 50 MG Januvia 50 MG No Januvia 50 MG Fish Oil 1000 MG Fish Oil 1000 MG No 1{capsu le} QD Fish Oil 1000 MG Methocarbam ol 500 MG Methocarbam ol 500 MG No Methocarba mol 500 MG Aspirin 81 81 MG Aspirin 81 81 MG No 1{table t} QD Aspirin 81 81 MG Plavix 75 MG Plavix 75 MG No 1{table t} QD Plavix 75 MG Losartan Potassium 100 MG Losartan Potassium 100 MG No 1{table t} QD Losartan Potassium 100 MG Multivitami n Adult - Multivitami n Adult - No Multivitam in Adult - Fish Oil 1000 MG Fish Oil 1000 MG No 1{capsu le} QD Fish Oil 1000 MG Aspirin 81 81 MG Aspirin 81 81 MG No 1{table t} QD Aspirin 81 81 MG Glimepiride 2 MG Glimepiride 2 MG No Glimepirid e 2 MG Metoprolol Tartrate 50 MG Metoprolol Tartrate 50 MG No 1{table t_with_ food} BID Metoprolol Tartrate 50 MG Glimepiride 2 MG Glimepiride 2 MG No 1{table t_with_ breakfa st_or_t he_firs t_main_ meal_of _the_da y} QD Glimepirid e 2 MG Plavix 75 MG Plavix 75 MG No 1{table t} QD Plavix 75 MG Crestor 40 MG Crestor 40 MG No 1{table t} QD Crestor 40 MG Saw [place] 450 MG Saw [place] 450 MG No Saw [place] 450 MG Levothyroxi ne Sodium 50 MCG Levothyroxi ne Sodium 50 MCG No Levothyrox ine Sodium 50 MCG Losartan Potassium 100 MG Losartan Potassium 100 MG No 1{table t} QD Losartan Potassium 100 MG Multivitami n Adult - Multivitami n Adult - No Multivitam in Adult - Fish Oil 1000 MG Fish Oil 1000 MG No 1{capsu le} QD Fish Oil 1000 MG Aspirin 81 81 MG Aspirin 81 81 MG No 1{table t} QD Aspirin 81 81 MG Glimepiride 2 MG Glimepiride 2 MG No Glimepirid e 2 MG Metoprolol Tartrate 50 MG Metoprolol Tartrate 50 MG No 1{table t_with_ food} BID Metoprolol Tartrate 50 MG Glimepiride 2 MG Glimepiride 2 MG No 1{table t_with_ breakfa st_or_t he_firs t_main_ meal_of _the_da y} QD Glimepirid e 2 MG Plavix 75 MG Plavix 75 MG No 1{table t} QD Plavix 75 MG Crestor 40 MG Crestor 40 MG No 1{table t} QD Crestor 40 MG Saw [place] 450 MG Saw [place] 450 MG No Saw [place] 450 MG Levothyroxi ne Sodium 50 MCG Levothyroxi ne Sodium 50 MCG No Levothyrox ine Sodium 50 MCG Losartan Potassium 100 MG Losartan Potassium 100 MG No 1{table t} QD Losartan Potassium 100 MG Multivitami n Adult - Multivitami n Adult - No Multivitam in Adult - Fish Oil 1000 MG Fish Oil 1000 MG No 1{capsu le} QD Fish Oil 1000 MG Aspirin 81 81 MG Aspirin 81 81 MG No 1{table t} QD Aspirin 81 81 MG Glimepiride 2 MG Glimepiride 2 MG No Glimepirid e 2 MG Metoprolol Tartrate 50 MG Metoprolol Tartrate 50 MG No 1{table t_with_ food} BID Metoprolol Tartrate 50 MG Glimepiride 2 MG Glimepiride 2 MG No 1{table t_with_ breakfa st_or_t he_firs t_main_ meal_of _the_da y} QD Glimepirid e 2 MG Plavix 75 MG Plavix 75 MG No 1{table t} QD Plavix 75 MG Crestor 40 MG Crestor 40 MG No 1{table t} QD Crestor 40 MG Saw [place] 450 MG Saw [place] 450 MG No Saw [place] 450 MG Levothyroxi ne Sodium 50 MCG Levothyroxi ne Sodium 50 MCG No Levothyrox ine Sodium 50 MCG Losartan Potassium 100 MG Losartan Potassium 100 MG No 1{table t} QD Losartan Potassium 100 MG Fish Oil 1000 MG Fish Oil 1000 MG No 1{capsu le} QD Fish Oil 1000 MG Simvastatin 40 MG Simvastatin 40 MG No 1{table t_in_th e_eveni ng} QD Simvastati n 40 MG Multivitami n Adult - Multivitami n Adult - No Multivitam in Adult - Metoprolol Tartrate 50 MG Metoprolol Tartrate 50 MG No 1{table t_with_ food} BID Metoprolol Tartrate 50 MG Levothyroxi ne Sodium 50 MCG Levothyroxi ne Sodium 50 MCG No Levothyrox ine Sodium 50 MCG Aspirin 81 81 MG Aspirin 81 81 MG No 1{table t} QD Aspirin 81 81 MG Glimepiride 2 MG Glimepiride 2 MG No 1{table t_with_ breakfa st_or_t he_firs t_main_ meal_of _the_da y} QD Glimepirid e 2 MG Losartan Potassium 100 MG Losartan Potassium 100 MG No 1{table t} QD Losartan Potassium 100 MG Saw [place] 450 MG Saw [place] 450 MG No Saw [place] 450 MG Fish Oil 1000 MG Fish Oil 1000 MG No 1{capsu le} QD Fish Oil 1000 MG Vital Signs Vital Name Observation Time Observation Value Comments S ource height 2023-10-13 09:20:00 66 [in_i] Commo n [facility] weight 2023-10-13 09:20:00 173.6 [lb_av] Co [facility] temperature 2023-10-13 09:20:00 97.6 [degF] Com mon [facility] bmi 2023-10-13 09:20:00 28.02 kg/m2 Comm on [facility] oximetry 2023-10-13 09:20:00 97 % [facility] respiratory rate 2023-10-13 09:20:00 17 /min Common [facility] blood pressure systolic 2023-10-13 09:20:00 150 mm[Hg] [facility] blood pressure diastolic 2023-10-13 09:20:00 76 mm[Hg] [facility] height 2023-10-13 09:00:00 66 [in_i] Commo n [facility] weight 2023-10-13 09:00:00 173.6 [lb_av] Co on [facility] temperature 2023-10-13 09:00:00 97.6 [degF] Com [facility] bmi 2023-10-13 09:00:00 28.02 kg/m2 Comm on [facility] oximetry 2023-10-13 09:00:00 97 % Commo [facility] respiratory rate 2023-10-13 09:00:00 17 /min [facility] blood pressure systolic 2023-10-13 09:00:00 150 mm[Hg] [facility] [place] [facility] blood pressure diastolic 2023-10-13 09:00:00 76 mm[Hg] [facility] [place] [facility] height 2023-07-02 08:00:00 66 [in_i] [facility]mo [facility] weight 2023-07-02 08:00:00 176.0 [lb_av] Co [facility]mon [facility] temperature 2023-07-02 08:00:00 97.2 [degF] Com [facility] bmi 2023-07-02 08:00:00 28.4 kg/m2 Commo [facility] oximetry 2023-07-02 08:00:00 98 % [facility] respiratory rate 2023-07-02 08:00:00 16 /min [facility] blood pressure systolic 2023-07-02 08:00:00 132 mm[Hg] Common [facility] blood pressure diastolic 2023-07-02 08:00:00 64 mm[Hg] [facility] bmi 2023-03-31 08:20:00 30.02 kg/m2 Comm on [facility] oximetry 2023-03-31 08:20:00 97 % Commo [facility] respiratory rate 2023-03-31 08:20:00 16 /min [facility] blood pressure systolic 2023-03-31 08:20:00 138 mm[Hg] [facility] [place] [facility] blood pressure diastolic 2023-03-31 08:20:00 64 mm[Hg] Common [facility] height 2023-03-31 08:20:00 66 [in_i] Commo [facility] weight 2023-03-31 08:20:00 186.0 [lb_av] Co mmon [facility] temperature 2023-03-31 08:20:00 97.0 [degF] Com mon [facility] height 2022-09-30 08:20:00 66 [in_i] Commo n [facility] weight 2022-09-30 08:20:00 183 [lb_av] Comm on [facility] temperature 2022-09-30 08:20:00 97.2 [degF] Com mon [facility] bmi 2022-09-30 08:20:00 29.53 kg/m2 Comm on [facility] oximetry 2022-09-30 08:20:00 98 % Commo n [facility] respiratory rate 2022-09-30 08:20:00 16 /min [facility] blood pressure systolic 2022-09-30 08:20:00 136 mm[Hg] Common [facility] blood pressure diastolic 2022-09-30 08:20:00 82 mm[Hg] Common [facility] height 2022-09-30 09:00:00 66 [in_i] Commo n [facility] weight 2022-09-30 09:00:00 183 [lb_av] Comm on [facility] temperature 2022-09-30 09:00:00 97.2 [degF] Com mon [facility] bmi 2022-09-30 09:00:00 29.53 kg/m2 Comm on [facility] oximetry 2022-09-30 09:00:00 98 % Commo n [facility] respiratory rate 2022-09-30 09:00:00 16 /min [facility] blood pressure systolic 2022-09-30 09:00:00 136 mm[Hg] [facility] blood pressure diastolic 2022-09-30 09:00:00 82 mm[Hg] [facility] Encounters Start Date/Time End Date/Time Encounter Type Admission Type Attending [facility] Care Facility Care Department Encounter ID Source 2023-10-06 09:50:00 Outpatient [facility] [id number] [facility] 2022-09-30 08:24:02 Outpatient [facility] pen[facility] [id number] [facility] 2023-10-13 00:00:00 2023-10-13 00:00:00 OFFICE VISIT ESTAB PT LEVEL 3 [facility] [id number] [facility] 2023-10-13 00:00:00 2023-10-13 00:00:00 SUB ANNUAL [facility] WELLNESS VISIT [facility] [id number] [facility] 2023-08-15 00:00:00 2023-08-15 00:00:00 (TEL) [facility] [id number] [facility] 2023-07-02 00:00:00 2023-07-02 00:00:00 OFFICE VISIT ESTAB PT LEVEL 3 [facility] [id number] [facility] 2023-06-17 00:00:00 2023-06-17 00:00:00 (TEL) [facility] [id number] [facility] 2023-05-30 00:00:00 2023-05-30 00:00:00 (TEL) [facility] [id number] [facility] 2023-04-23 00:00:00 2023-04-23 00:00:00 (TEL) [facility] [id number] [facility] 2023-04-04 00:00:00 2023-04-04 00:00:00 (TEL) [facility] [id number] [facility] 2023-03-31 00:00:00 2023-03-31 00:00:00 OFFICE VISIT ESTAB PT LEVEL 4 [facility] [id number] [facility] 2022-09-30 00:00:00 2022-09-30 00:00:00 OFFICE VISIT EST PT LEVEL 3 [facility] [id number] [facility] 2022-09-30 00:00:00 2022-09-30 00:00:00 SUB ANNUAL [facility] WELLNESS VISIT [facility] [id number] [facility] Results Test Description Test Time Test Comments Results Result Co mments Source MICROALBUMIN, RANDOM URINE (W/CREATININE)2023-10-22 00:00:00* Test Item Value Reference Range Interpretation Comme nts CREATININE, RANDOM URINE (test code = 2161-8) 117 mg/dL See_Comment N [Automated [employer]] The system which generated this result transmitted reference range: 20-320 mg/dL. The reference range was not used to interpret this result as normal/abnormal. ALBUMIN, URINE (test code = 89246-2) 28.8 mg/dL See Note: mg/dL N ALBUMIN/CREATININ E RATIO, RANDOM URINE (test code = 9318-7) 246 mcg/mg creat See_Comment H [Automated mess [employer]] The system which generated this result transmitted reference range: <30 mcg/mg creat. The reference range was not used to interpret this result as normal/abnormal. LIPID [id number] 00:00:00* Test Item Value Reference Range Interpretation Comme nts CHOL/HDLC RATIO (test code = 9830-1) 4.4 (calc) See_Comment N [Automated messa ge] The system which generated this result transmitted reference range: <5.0 (calc). The reference range was not used to interpret this result as normal/abnormal. CHOLESTEROL, TOTAL (test code = 2093-3) 173 mg/dL See_Comment N [Automated message] The system which generated this result transmitted reference range: <200 mg/dL. The reference range was not used to interpret this result as normal/abnormal. HDL CHOLESTEROL (test code = 2085-9) 39 mg/dL See_Comment L [Automated messa ge] The system which generated this result transmitted reference range: > OR = 40 mg/dL. The reference range was not used to interpret this result as normal/abnormal. LDL-CHOLESTEROL (test code = 77712-3) NON HDL CHOLESTEROL (test code = 68638-5) 134 mg/dL (calc) See_Comment H [Automated message] The system which generated this result transmitted reference range: <130 mg/dL (calc). The reference range was not used to interpret this result as normal/abnormal. TRIGLYCERIDES (test code = 2571-8) 479 mg/dL See_Comment H [Automated messa ge] The system which generated this result transmitted reference range: <150 mg/dL. The reference range was not used to interpret this result as normal/abnormal. HEMOGLOBIN A1C WITH [id number] 00:00:00* Test Item Value Reference Range Interpretation Comme nts HEMOGLOBIN A1c (test code = 4548-4) 8.4 % of total Hgb See_Comment H [Automated message] The system which generated this result transmitted reference range: <5.7 % of total Hgb. The reference range was not used to interpret this result as normal/abnormal. MEAN PLASMA GLUCOSE (test code = 83282-1) 222 mg/dL (calc) [id number] 00:00:00* Test Item Value Reference Range Interpretation Comme nts TSH (test code = 3016-3) 4.59 mIU/L See_Comment H [Automated messa ge] The system which generated this result transmitted reference range: 0.40-4.50 mIU/L. The reference range was not used to interpret this result as normal/abnormal. COMPREHENSIVE METABOLIC PANEL(CMP)2023-04-02 00:00:00* Test Item Value Reference Range Interpretation Comme nts ALBUMIN (test code = 1751-7) 4.2 g/dL See_Comment N [Automated message] The system which generated this result transmitted reference range: 3.6-5.1 g/dL. The reference range was not used to interpret this result as normal/abnormal. ALBUMIN/GLOBULIN RATIO (test code = 1759-0) 1.4 (calc) See_Comment N [Automated message] The system which generated this result transmitted reference range: 1.0-2.5 (calc). The reference range was not used to interpret this result as normal/abnormal. ALKALINE PHOSPHATASE (test code = 6768-6) 72 U/L See_Comment N [Automated message] The system which generated this result transmitted reference range: 35-144 U/L. The reference range was not used to interpret this result as normal/abnormal. ALT (test code = 1742-6) 26 U/L See_Comment N [Automated message] The system which generated this result transmitted reference range: 9-46 U/L. The reference range was not used to interpret this result as normal/abnormal. AST (test code = 1920-8) 20 U/L See_Comment N [Automated message] The system which generated this result transmitted reference range: 10-35 U/L. The reference range was not used to interpret this result as normal/abnormal. BILIRUBIN, TOTAL (test code = 1975-2) 0.4 mg/dL See_Comment N [Automated message] The system which generated this result transmitted reference range: 0.2-1.2 mg/dL. The reference range was not used to interpret this result as normal/abnormal. BUN/CREATININE RATIO (test code = 3097-3) NOT APPLICABLE (calc) See_Comment [Automated message] The system which generated this result transmitted reference range: 6-22 (calc). The reference range was not used to interpret this result as normal/abnormal. CALCIUM (test code = 17166-7) 10.2 mg/dL See_Comment N [Automated message] The system which generated this result transmitted reference range: 8.6-10.3 mg/dL. The reference range was not used to interpret this result as normal/abnormal. CARBON DIOXIDE (test code = 2027-9) 26 mmol/L See_Comment N [Automated message] The system which generated this result transmitted reference range: 20-32 mmol/L. The reference range was not used to interpret this result as normal/abnormal. CHLORIDE (test code = 5-0) 101 mmol/L See_Comment N [Automated message] The system which generated this result transmitted reference range: 98-110 mmol/L. The reference range was not used to interpret this result as normal/abnormal. CREATININE (test code = 2160-0) 1.24 mg/dL See_Comment N [Automated message] The system which generated this result transmitted reference range: 0.70-1.28 mg/dL. The reference range was not used to interpret this result as normal/abnormal. GLOBULIN (test code = 76688-7) 3.0 g/dL (calc) See_Comment N [Automated message] The system which generated this result transmitted reference range: 1.9-3.7 g/dL (calc). The reference range was not used to interpret this result as normal/abnormal. GLUCOSE (test code = 2345-7) 189 mg/dL See_Comment H [Automated message] The system which generated this result transmitted reference range: 65-99 mg/dL. The reference range was not used to interpret this result as normal/abnormal. POTASSIUM (test code = 2823-3) 4.5 mmol/L See_Comment N [Automated message] The system which generated this result transmitted reference range: 3.5-5.3 mmol/L. The reference range was not used to interpret this result as normal/abnormal. PROTEIN, TOTAL (test code = 2885-2) 7.2 g/dL See_Comment N [Automated message] The system which generated this result transmitted reference range: 6.1-8.1 g/dL. The reference range was not used to interpret this result as normal/abnormal. SODIUM (test code = 2951-2) 136 mmol/L See_Comment N [Automated message] The system which generated this result transmitted reference range: 135-146 mmol/L. The reference range was not used to interpret this result as normal/abnormal. UREA NITROGEN (BUN) (test code = 3094-0) 25 mg/dL See_Comment N [Automated message] The system which generated this result transmitted reference range: 7-25 mg/dL. The reference range was not used to interpret this result as normal/abnormal. HEMOGLOBIN [id number] 00:00:00* Test Item Value Reference Range Interpretation Comme [facility] HEMOGLOBIN A1c (test code = 4548-4) 8.1 % of total Hgb See_Comment H [Automated message] The system which generated this result transmitted reference range: <5.7 % of total Hgb. The reference range was not used to interpret this result as normal/abnormal. MICROALBUMIN, RANDOM URINE (W/CREATININE)2023-04-02 00:00:00* Test Item Value Reference Range Interpretation Comme [facility] CREATININE, RANDOM URINE (test code = 2161-8) 90 mg/dL See_Comment N [Automated messa ge] The system which generated this result transmitted reference range: 20-320 mg/dL. The reference range was not used to interpret this result as normal/abnormal. ALBUMIN, URINE (test code = 13923-6) 17.1 mg/dL See Note: mg/dL N ALBUMIN/CREATININ E RATIO, RANDOM URINE (test code = 9318-7) 190 mcg/mg creat See_Comment H [Automated mess age] The system which generated this result transmitted reference range: <30 mcg/mg creat. The reference range was not used to interpret this result as normal/abnormal. [id number] 00:00:00* Test Item Value Reference Range Interpretation Comme [facility] TSH (test code = 3016-3) 4.19 mIU/L See_Comment N [Automated messa ge] The system which generated this result transmitted reference range: 0.40-4.50 mIU/L. The reference range was not used to interpret this result as normal/abnormal.
--- NOTE | 2023-12-08 10:09 | RAD REPORT ---
EXAM DESCRIPTION: CTAbdomen Pelvis W Contrast - 12/08/2023 9:55 am CLINICAL HISTORY: Abdominal pain. hyperbilirubinemia COMPARISON: Cholangiogram dated 06/09/2023; Chest Abdomen Pelvis W Cont dated 06/09/2023 TECHNIQUE: Biphasic CT imaging of the abdomen and pelvis was performed with 100 ml non-ionic IV cont rast. All CT scans are performed using dose optimization technique as appropriate and may include automated exposure control or mA/KV adjustment according to patient size. FINDINGS: The lung bases are clear. Moderate intrahepatic biliary dilatation. Cholecystectomy. Soft tissue density material appears to fi ll in the common hepatic duct measuring about 17 mm in length and 9 mm transverse dimension. Common b ile duct is normal caliber. The spleen, pancreas, adrenal glands are normal. Small stones are present in the calices of both kidn eys. There is a large stone in the proximal right ureter measuring 15 mm resulting in mild right hydr onephrosis. Prominent diverticulosis coli seen of the descending colon and sigmoid colon without diverticulitis. Normal appendix. No bowel obstruction. No free fluid or free air seen. Large 4 cm duodenal diverticul um. No evidence of significant lymphadenopathy. No suspicious bony findings. IMPRESSION: There is moderate intrahepatic biliary tree dilatation. This appears to be caused by com mon hepatic duct obstruction which is probably related to hyperdense material which is seen within th e common hepatic duct. This could be debris, stone or mass. ERCP would provide further information. Bilateral nephrolithiasis. 15 mm stone proximal right ureter resulting in mild right hydronephrosis. Diverticulosis coli of sigmoid colon without diverticulitis.
[2023-12-08 10:23] LABS: Albumin 2.9 g/dL (3.4-5.0); Bilirubin Direct 8.9 mg/dL (0-0.2); Bilirubin Indirect, Calculated 1.9 mg/dL (0.2-0.8); Bilirubin Total 10.8 mg/dL (0.2-1.0); Protein, Total 7.5 g/dL (6.4-8.2)
[2023-12-08 10:25] LABS: Potassium 3.4 mEq/L (3.5-5.1)
[2023-12-08 10:58] LABS: MCV 93.9 fL (80-100); MPV 8.8 fL (7.6-11.3); Platelets 299 thou/uL (152-406); RBC Red Blood Cell Count 3.63 M/uL (4.33-5.43)
--- NOTE | 2023-12-08 12:59 | RAD REPORT ---
EXAM DESCRIPTION: MRI - Cholangiogram - 12/08/2023 12:38 pm CLINICAL HISTORY: jaundice, hyperbilirubinemia COMPARISON: Cholangiogram dated 06/09/2023; Hepatobiliary System Imagin dated 06/10/2023; Abdomen Pe lvis W Contrast dated 12/08/2023 TECHNIQUE: Multiplanar multisequence MRI of the abdomen, obtained without IV contrast, utilizing [employer] sequences. FINDINGS: Status post cholecystectomy. Moderate intrahepatic biliary ductal dilation to the level of the proximal common hepatic duct. Abrup t tapering of the common hepatic duct, with a segment of absent fluid signal opacification is present along the mid aspect of the common hepatic duct measuring approximately 1 cm in length. No discrete solid masses are seen in this region within limits of noncontrast MRI evaluation. Common bile duct is normal in caliber, 6 millimeter. No filling defects to suggest choledocholithiasi s. Smooth tapering at the ampulla. Main pancreatic duct is not dilated. The visualized aspects of the liver, spleen, adrenal glands, pancreas, and kidneys are unremarkable a part from incidentally noted left upper renal pole fluid signal intensity cysts, largest measuring 1. 5 cm. Visualized aspects of the bowel are unremarkable. No suspicious osseous lesions. Trace bilateral pleural effusions IMPRESSION: Short-segment of non opacification of the mid aspect of the common hepatic duct. Moderat e diffuse intrahepatic biliary ductal dilation, with abrupt tapering of the proximal common hepatic d uct leading to this segment. This is most suggestive of a stricture, probably due to scarring.
[2023-12-08 13:19] LABS: Blood Morphology Comment NOT SEEN (NOT SEEN); Platelet Estimate ADEQ
--- NOTE | 2023-12-08 13:48 | ER ---
Nurse's Notes [facility] Name: Nnamdi Flores III Age: 78 yrs Sex: Male : 1945 Arrival Date: 12/08/2023 Time: 09:01 Bed 14 Private MD: Sandie Tesfaye Diagnosis: Hyperbilirubinemia;Intrahepatic biliary ductal dilation Presentation: 12/08 09:19 Chief complaint: Patient states: had gallbladder removed in and he became iw jaundiced, Joceline told him to come to ER. Coronavirus screen: At this time, the client does not indicate any symptoms associated with coronavirus-19. Ebola Screen: Patient negative for fever greater than or equal to 101.5 degrees Fahrenheit, and additional compatible Ebola Virus Disease symptoms Patient denies exposure to infectious person. Patient denies travel to an Ebola-affected area in the 21 days before illness onset. No symptoms or risks identified at this time. Initial Sepsis Screen: Does the patient meet any 2 criteria? No. Patient's initial sepsis screen is negative. Does the patient have a suspected source of infection? No. Patient's initial sepsis screen is negative. Risk Assessment: Do you want to hurt yourself or someone else? Patient reports no desire to harm self or others. 09:19 Method Of Arrival: Ambulatory iw 09:21 Acuity: DAMION 3 iw 09:22 Onset of symptoms was December 04, 2023. iw Historical: - Allergies: 09:20 Morphine; iw 09:20 Sulfa (Sulfonamide Antibiotics); iw - PMHx: 09:20 BPH; coronary atherosclerosis; Hypertensive disorder; Hypothyroidism; iw - Immunization history:: Adult Immunizations up to date. - Social history:: Smoking status: Patient denies any tobacco usage or history of. - Family history:: not pertinent. Screenin:45 [facility] ED Fall Risk Assessment (Adult) History of falling in the last 3 months, ld1 including since admission No falls in past 3 months (0 pts). Abuse screen: Denies threats or abuse. Denies injuries from another. Nutritional screening: No deficits noted. Tuberculosis screening: No symptoms or risk factors identified. Assessment: 09:45 General: Appears in no apparent distress. comfortable, Behavior is calm, cooperative, ld1 appropriate for age. Pain: Denies pain. Neuro: Level of Consciousness is awake, alert, obeys commands, Oriented to person, place, time, situation. Cardiovascular: Capillary refill < 3 seconds Patient's skin is warm and dry. Respiratory: Airway is patent Respiratory effort is even, unlabored. GI: Abdomen is round non-distended. : No signs and/or symptoms were reported regarding the genitourinary system. EENT: No signs and/or symptoms were reported regarding the EENT system. Derm: Skin is jaundiced. Musculoskeletal: No signs and/or symptoms reported regarding the musculoskeletal system. 12:14 Reassessment: Patient in MRI. cp4 12:43 Reassessment: Patient back from MRI. cp4 Vital Signs: 09:19 BP 146 / 66; Pulse 67; Resp 16; Temp 98.1; Pulse Ox 99% on R/A; Weight 77.11 kg; iw 09:45 BP 152 / 64; Pulse 60; Resp 18; Pulse Ox 100% on R/A; ld1 11:00 BP 151 / 58; Pulse 57; Resp 18; Pulse Ox 99% ; cp4 13:00 BP 142 / 62; Pulse 58; Resp 18; Pulse Ox 100% ; cp4 14:00 BP 154 / 80; Pulse 61; Resp 18; Pulse Ox 100% ; cp4 15:00 BP 165 / 68; Pulse 58; Resp 18; Pulse Ox 100% ; cp4 16:00 BP 155 / 70; Pulse 56; Resp 18; Pulse Ox 100% ; cp4 ED Course: 09:04 Patient arrived in ED. mr 09:04 Charlie Ramos MD is Attending Physician. rt 09:04 Sandie Tesfaye is Private Physician. mr 09:20 Arm band placed on. iw 09:21 Triage completed. iw 09:35 Sue Mesa, TORREY is Primary Nurse. ld1 09:45 Patient has correct armband on for positive identification. Placed in gown. Bed in low ld1 position. Call light in reach. Side rails up X2. night monitor on. Pulse ox on. NIBP on. Door closed. Noise minimized. Warm blanket given. 09:45 LFT's Sent. ld1 09:45 BMP Sent. ld1 09:45 CBC with Diff Sent. ld1 09:45 No provider procedures requiring assistance completed. Inserted saline lock: 20 gauge ld1 in right forearm, using aseptic technique. Blood collected. 09:56 CT Abd/Pelvis - IV Contrast Only In Process Unspecified. EDMS 12:24 Cholangiogram In Process Unspecified. EDMS 13:[address] [facility]. bd 16:15 pt accepted in transfer to [facility] [id number] jannie Franklin admin approval given bd by Adelina Basurto. 17:00 Provided Education on: transfer. cp4 17:00 Patient transferred, IV remains in place. cp4 Administered Medications: No medications were administered Medication: 09:45 VIS not applicable for this client. ld1 Outcome: 13:48 ER care complete, transfer ordered by . rt 17:00 Transferred by ground EMS to [facility], Transfer form completed. cp4 X-rays sent w/ patient. 17:00 Condition: stable 17:00 Instructed on the need for transfer, Demonstrated understanding of instructions, follow-up care, 17:01 Patient left the ED. cp4 Signatures: Dispatcher [employer] EDMS Noreen Lugo bd Dudley, Karen, Reg Reg mr Tamara Gillespie, TORREY HIRSCH iw Sue Mesa RN RN ld1 Charlie Ramos MD MD rt Estee Vazquez cp4 Corrections: (The following items were deleted from the chart) 09:52 09:45 LIPASE+C.LAB.BRZ drawn and sent. ld1 EDMS 13:57 09:19 BP 146 / 66; Pulse 67bpm; Resp 16bpm; Pulse Ox 99% RA; Temp 98.1F; iw iw
--- NOTE | 2023-12-08 13:48 | EDPHYS ---
Physician Documentation [facility] Name: Nnamdi Flores III Age: 78 yrs Sex: Male : 1945 Arrival Date: 12/08/2023 Time: 09: Bed 14 Private MD: Sandie Tesfaye ED Physician Charlie Ramos HPI: 12/08 09:56 This 78 yrs old Male presents to ER via Ambulatory with complaints of Jaundice. rt 09:56 Patient presents to the ED from general surgery's office for jaundice with rt hyperbilirubinemia. They noticed the jaundice over the past couple weeks, denies any abdominal pain but does report mild abdominal swelling. Does report skin itching, denies other acute complaints at this time, symptoms are moderate severity, no other aggravating elevating factors.. Historical: - Allergies: 09:20 Morphine; iw 09:20 Sulfa (Sulfonamide Antibiotics); iw - PMHx: 09:20 BPH; coronary atherosclerosis; Hypertensive disorder; Hypothyroidism; iw - Immunization history:: Adult Immunizations up to date. - Social history:: Smoking status: Patient denies any tobacco usage or history of. - Family history:: not pertinent. ROS: 09:56 Constitutional: Negative for fever, chills, and weight loss, Cardiovascular: Negative rt for chest pain, palpitations, and edema, Respiratory: Negative for shortness of breath, cough, wheezing, and pleuritic chest pain, MS/Extremity: Negative for injury and deformity, Neuro: Negative for headache, weakness, numbness, tingling, and seizure, Psych: Negative for depression, anxiety, suicide ideation, homicidal ideation, and hallucinations, 09:56 Abdomen/GI: Positive for diarrhea, Negative for abdominal pain, 09:56 Skin: Positive for jaundice, itching, Exam: 09:56 Constitutional: This is a well developed, well nourished patient who is awake, alert, rt and in no acute distress. Head/Face: Normocephalic, atraumatic. Chest/axilla: Normal chest wall appearance and motion. Nontender with no deformity. No lesions are appreciated. Cardiovascular: Regular rate and rhythm with a normal S1 and S2. No gallops, murmurs, or rubs. Normal PMI, no JVD. No pulse deficits. Respiratory: Lungs have equal breath sounds bilaterally, clear to auscultation and percussion. No rales, rhonchi or wheezes noted. No increased work of breathing, no retractions or nasal flaring. MS/ Extremity: Pulses equal, no cyanosis. Neurovascular intact. Full, normal range of motion. Neuro: Awake and alert, GCS 15, oriented to person, place, time, and situation. Cranial nerves II-XII grossly intact. Motor strength 5/5 in all extremities. Sensory grossly intact. Cerebellar exam normal. Normal gait. Psych: Awake, alert, with orientation to person, place and time. Behavior, mood, and affect are within normal limits. 09:56 Eyes: Scleral icterus noted. 09:56 Abdomen/GI: Moderate abdominal distention, minimal tenderness diffusely, no rebound, guarding, 09:56 Skin: Jaundice noted. Vital Signs: 09:19 BP 146 / 66; Pulse 67; Resp 16; Temp 98.1; Pulse Ox 99% on R/A; Weight 77.11 kg; iw 09:45 BP 152 / 64; Pulse 60; Resp 18; Pulse Ox 100% on R/A; ld1 11:00 BP 151 / 58; Pulse 57; Resp 18; Pulse Ox 99% ; cp4 13:00 BP 142 / 62; Pulse 58; Resp 18; Pulse Ox 100% ; cp4 14:00 BP 154 / 80; Pulse 61; Resp 18; Pulse Ox 100% ; cp4 15:00 BP 165 / 68; Pulse 58; Resp 18; Pulse Ox 100% ; cp4 16:00 BP 155 / 70; Pulse 56; Resp 18; Pulse Ox 100% ; cp4 MDM: 09:24 Patient medically screened. rt 19:46 Differential Diagnosis Jaundice, biliary ductal dilation. Data reviewed: vital signs, rt nurses notes. Consideration of Admission/Observation Escalation of care including admission/observation considered. Patient car transfer for higher level of care. Management of patient was discussed with the following: Branch Office Manager: Spoke with general surgery, GI on-call, patient requires transfer for higher level of care, likely biliary stenting and biopsy. I considered the following discharge prescriptions or medication management in the emergency department Medications were administered in the Emergency Department. See MAR. Independent interpretation of the following test(s) in the Emergency Department CT Scan: My interpretation is No bowel obstruction seen on interpretation of CT scan images. Care significantly affected by the following chronic conditions: Hypertension. Counseling: I had a detailed discussion with the patient and/or guardian regarding the historical points, exam findings, and any diagnostic results supporting the discharge/admit diagnosis, lab results, radiology results, the need to transfer to another facility. 12/08 09:15 Order name: CBC with Diff; Complete Time: 13:35 rt 12/08 09:15 Order name: BMP; Complete Time: 11:36 rt 12/08 09:15 Order name: LFT's; Complete Time: 11:36 rt 12/08 09:51 Order name: Lipase; Complete Time: 11:36 EDMS 12/08 11:03 Order name: Manual Differential; Complete Time: 13:35 EDMS 12/08 09:18 Order name: Cholangiogram; Complete Time: 12:59 EDMS 12/08 09:28 Order name: CT Abd/Pelvis - IV Contrast Only; Complete Time: 10:18 rt 12/08 10:23 Order name: Labs - recollect needed: recollect lavender top; Complete Time: 10:41 bd Administered Medications: No medications were administered Disposition Summary: 12/08/23 13:48 Transfer Ordered Notes: Transfer Location: [facility] rt Reason: Higher level of care rt Condition: Stable rt Problem: an ongoing problem rt Symptoms: are unchanged rt Accepting Physician: (12/08/23 17:01) cp4 Diagnosis - Hyperbilirubinemia rt - Intrahepatic biliary ductal dilation rt Forms: - Medication Reconciliation Form rt - SBAR form rt Critical care time excluding procedures: 19:46 Critical care time: Bedside Care: 30 minutes, Consultation: 10 minutes. Total time: 40 rt minutes Signatures: Dispatcher [employer] EDNE Noreen Lugo Irene, TORREY HIRSCH iw Sue Mesa RN RN ld1 Charlie Ramos MD MD rt Estee Vazquez cp4 Corrections: (The following items were deleted from the chart) 09:52 09:28 LIPASE+C.LAB.BRZ ordered. [facility] EDMS 17:01 13:48 rt cp4
[2023-12-08 18:02] VITALS: BP 155/70; TEMP 98.1; O2SAT 100
== END ==
LOC: ER 09:01
DX: E80.6 Other disorders of bilirubin metabolism (principal); K83.8 Other specified diseases of biliary tract; I10 Essential (primary) hypertension; Z88.2 Allergy status to sulfonamides; Z88.5 Allergy status to narcotic agent
CPT/HCPCS: 85025; 80048; 36415; 80076; 83690; 74177; 74181; 99285; Q9967

== ENCOUNTER 2024-01-23 11:18 | Day surgery (SDC) | payer OTHER ==
[2024-01-23] MEDS: Ringers Lactate 1,000 ML IV ONE (11:25)
[2024-01-23 12:25] LABS: Albumin 2.9 g/dL (3.4-5.0); Albumin/Globulin Ratio 0.6 (1.1-1.8); Bilirubin Total 0.4 mg/dL (0.2-1.0); Protein, Total 7.5 g/dL (6.4-8.2)
[2024-01-23] MEDS ORDERED: ONDANSETRON 4 MG/2 ML VIAL ONE (12:39)
[2024-01-23] MEDS ORDERED: LIDOCAINE 2% MPF 5 ML VIAL ONE (12:39)
[2024-01-23] MEDS ORDERED: FENTANYL CITR 100 MCG/2 ML ONE (12:39)
[2024-01-23] MEDS ORDERED: propofoL 200 MG/20 ML VIAL IV ONE (12:39)
[2024-01-23] MEDS ORDERED: NS 0.9% VIAL 20 ML ONE (13:03)
[2024-01-23] MEDS: CEFAZOLIN SODIUM 2 GM/VIAL ONE (13:18)
[2024-01-23] MEDS: HEPARIN 5000 UNIT/ML 1 ML VIAL ONE (13:45)
[2024-01-23] MEDS: LIDOCAINE HCL/EPINEPHRINE 20 ML MDV ONE (13:45)
--- NOTE | 2024-01-23 14:08 | P.OP ---
Preoperative diagnosis: Need for Chemotherapy Port - Cholangiocarcinoma Postoperative diagnosis: Need for Chemotherapy Port - Cholangiocarcinoma Primary procedure: Placement of Chemotherapy port Secondary procedure: Flouroscopy and Ultrasound Utilized Anesthesia: GETA + Local Estimated blood loss: <5cc Specimen: none Findings: Port @ [place] of SVC Complications: None Implants: Port a Cath Transferred to: Recovery Room Condition: Good
--- NOTE | 2024-01-23 14:53 | RAD REPORT ---
EXAM DESCRIPTION: RAD - Chest Single View - 01/23/2024 2:46 pm CLINICAL HISTORY: post op: placement of chemotherapy access port COMPARISON: Chest Single View dated 06/09/2023 FINDINGS: Lines: Right IJ approach Port-A-Cath. The tip overlies the region of the proximal SVC. Lungs: No evidence of edema or pneumonia. Pleural: No significant pleural effusions or pneumothorax. Cardiac: Similar size configuration. Mediastinum: Within normal limits. Bones: No acute fractures. Sternotomy. Other: None IMPRESSION: No acute cardiopulmonary disease. Right IJ approach Port-A-Cath. No pneumothorax. Tip ov erlies the approximate location of the proximal SVC.
--- NOTE | 2024-01-23 14:55 | RAD REPORT ---
EXAM DESCRIPTION: RAD - Fluoroscopy <1 Hour - 01/23/2024 2:35 pm CLINICAL HISTORY: CHEMO PORT PLCMNT COMPARISON: No comparisons FINDINGS/IMPRESSION: Three intraoperative fluoroscopic images submitted from right IJ approach Port- A-Cath placement. No radiologist was available for the procedure, nor will any image interpretation be provided. Katey leija refer to the procedural report for additional details Fluoro time: 46.6 seconds Cumulative dose: 6.32 mGy
[2024-01-23 16:07] VITALS: BP 160/56; TEMP 97.1; O2SAT 99
--- NOTE | 2024-01-24 01:48 | OP ---
Date of Procedure: 01/23/2024 Surgeon: Dat Car MD, Preoperative Diagnosis: Need for chemotherapy port/cholangiocarcinoma. Postoperative Diagnosis: Need for chemotherapy port/cholangiocarcinoma. Procedure Performed: Placement of chemotherapy port using fluoroscopy and ultrasound guidance with i nterpretation. Anesthesia: General endotracheal plus local 0.25% Marcaine. Estimated Blood Loss: Less than 5 mL. Specimen: None. Findings: Port at the confluence of the SVC at approximately 19 to 20 cm. Complications: None. Implants: Port-A-Cath. Disposition: The patient was transferred to recovery room in good condition. Procedure In Detail: After informed consent was obtained, the patient was brought to the operating r oom, prepped and draped in the usual sterile fashion after adequate anesthesia achieved. I interroga dat both internal jugular veins, and thought the right to be a better planning position for placement of the chemotherapy port using ultrasound interpretation while the patient remained in steep [place] throughout the procedure. At this point, I inserted a micro introducer sheath along _ skin. Cannulated the right internal jugular vein on first attempt without incident or complication . Under ultrasound guidance, a micro wire was advanced at this point. Fluoroscopy confirmed positio andreia in the heart after repositioning the micro wire. At this point, I made a small sandee incision ov erlying the insertion site and placed the micro introducer sheath, and the standard wire was exchange d at this point. Wire out was called for the micro wire and the standard wire was advanced into the right atrium at this point, into the right ventricle. Fluoroscopic guidance confirmed the position o f the catheter. Minimal ectopy was appreciated during this procedure. At this point, I brought in t he port device. Made a chest incision. I dissected out the adipose tissue and removed this adipose tissue to position of the preperitoneal fat. At this point, I brought the tunneling devic e through the insertion site at this point and then performed sequential dilatation of the right inte rnal jugular vein using Seldinger technique over the wire and placed the introducer sheath and at thi s point, dark red nonpulsatile blood was easily returned throughout the procedure. The wire out was called at this point, the introducer inner cannula was removed and the catheter was advanced all the way into the right atrium. At this point, under fluoroscopic guidance, I removed the tubing ultimate ly to the confluence of the SVC. At this point, the catheter remained in good position. I then bautista ched the subcutaneous port at this point and flushed it quite easily after placing in the anatomic po sition and trimming the catheter appropriately at approximately 20 cm. At this point, the catheter w as functioning quite well, so I secured to the chest wall prepectoral fascia using 3 interrupted 2-0 Prolene sutures. I then irrigated both sites at this point until completely dry. I then flushed the area once again, confirmed position with fluoroscopy after the catheter was secured, and it was flus suzette quite well. I then packed it with heparin at this point. I then irrigated 1 last ti me and dried at this point, closed the deep dermal plane of the subcutaneous port using interrupted 3 -0 Vicryl sutures and the skin was closed with a 4-0 Monocryl in a running fashion. Dermabond was pl aced over top. I then placed a single interrupted nylon suture at the neck insertion site at this po int, and sterile dressing was placed over top. The patient tolerated procedure without incident or c omplication. Transferred back in good condition. All counts were correct at the end of the case. MERE/STEVE Voice ID: [id number] Report ID: [id number]
== END 2024-01-23 15:44 | disposition home or self-care (01) ==
LOC: OR 11:18
PROVIDERS: ATTEND Surgery
PROC: 0JH60WZ Insertion of Totally Implantable Vascular Access Device into Chest Subcutaneous Tissue and Fascia, Open Approach (ICD-10-PCS; principal; 2024-01-23 13:30)
DX: C22.1 Intrahepatic bile duct carcinoma (principal)
CPT/HCPCS: 93005; 36415; 80053; 71045; 36561; J1644 ×2; A4216; J2704; J2001; J3010; J2405; J7120; 76000

== ENCOUNTER 2024-03-09 21:18 | Inpatient (IN) | payer OTHER ==
--- OUTSIDE RECORDS SUMMARY | 2024-03-09 21:22 | XMS REPORT | Clinical Summary ---
Author Name Unknown Organization [facility] Address [address] [place] [address] Care Team Providers Care Cloud Security Architect Name Role Phone Al Carrasco MD Unavailable [phone] Dashawn Sutherland MD Primary Care Provider [phone] Allergies Active Allergy Reactions Criticality Noted Date Comments Morphine Anaphylaxis,Other (S ee Comments),Shortness Of Breath High 11/21/2015 Hypotention Sulfur Nausea And Vomiting High 12/08/2023 Medications Medication Sig Dispensed Refills Start Date End Date Status levothyroxine (SYNTHROID, LEVOTHROID) 75 mcg tablet Take 1 tablet (75 mcg) by mouth daily. 0 11/20/2023 Active metoprolol tartrate (LOPRESSOR) 50 mg tablet Take 1 tablet (50 mg) by mouth daily. 0 06/09/2023 Active losartan (COZAAR) 100 mg tablet Take 1 tablet (100 mg) by mouth daily. 0 06/09/2023 Active OMEGA-3 FATTY ACIDS-VITAMIN E ORAL Take 1 g by mouth. 0 Active glimepiride (AMARYL) 2 mg tablet Take 2 tablets (4 mg) by mouth twice daily. 0 11/20/2023 Active latanoprost (XALATAN) 0.005% ophthalmic solution Administer 1 drop to both eyes daily. 0 10/16/2023 Active tamsulosin (FLOMAX) 0.4 mg 24 hr capsule Take 1 capsule (0.4 mg) by mouth daily. 0 06/10/2023 Active simvastatin (ZOCOR) 20 mg tablet Take 2 tablets (40 mg) by mouth at bedtime. 0 11/20/2023 Active ondansetron (Zofran) 8 mg tabletIndication s:Cholangiocarci noma of biliary tract, NOS Take 1 tablet (8 mg) by mouth every 8 (eight) hours as needed for nausea or vomiting (First choice). 30 tablet 5 01/25/2024 Active prochlorperazine (COMPAZINE) 10 mg tabletIndication s:Cholangiocarci noma of biliary tract, NOS Take 1 tablet (10 mg) by mouth every 6 (six) hours as needed for nausea or vomiting (Second choice). 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 30 capsule 0 03/01/2024 Active ursodiol (ACTIGALL) 500 mg tablet Take 1 tablet (500 mg) by mouth 3 (three) times a day. 0 12/10/2023 4 Discontinued carvedilol (COREG) 12.5 mg tablet Take 1 tablet (12.5 mg) by mouth daily. 0 12/10/2023 4 Discontinued pantoprazole (PROTONIX) 40 mg EC tablet Take 1 tablet (40 mg) by mouth every morning before breakfast. 0 12/25/2023 4 docusate sodium (COLACE) 100 mg capsule Take 1 capsule (100 mg) by mouth twice daily. 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 03/01/2024 Travel 02/24/2024 9:00 AM CDT Infusion [facility] - [address] [address] Marbella Pereira PA Brioso, Cecille, RN Cholangiocarcinoma of biliary tract, NOS (Primary Dx) 02/24/2024 Orders Only [facility] [address] [place] [address], 7th [place] [address] Dashawn Sutherland MD Cholangiocarcinoma of biliary tract, NOS (Primary Dx) 02/24/2024 Travel 02/10/2024 9:00 AM CDT Infusion [facility] - [address] [place] [address] Dashawn Sutherland MD Thomas, Alice, RN Cholangiocarcinoma of biliary tract, NOS (Primary Dx) 02/10/2024 Travel 02/06/2024 Orders Only [facility] [address] [place] [address] Marbella Pereira PA Cholangiocarcinoma of biliary tract, NOS (Primary Dx); Hydronephrosis, not otherwise specified; Calculus of ureter 02/06/2024 Orders Only [facility] [address] [place] [address] Marbella Pereira PA Cholangiocarcinoma of biliary tract, NOS (Primary Dx) 02/05/2024 10:20 AM CDT Ancillary Procedure [address] [place] [address] Marbella Pereira PA Cholangiocarcinoma of biliary tract, NOS; Right lower quadrant pain 02/05/2024 Travel 02/03/2024 Orders Only [facility] [address] [place] [address] Main dg, 7th [place] [address] Marbella Pereira PA 02/02/2024 2:00 PM CDT Telemedicine [facility] - Medical Oncology [address] [place] [address] Dashawn Sutherland MD Right lower quadrant pain (Primary Dx); Cholangiocarcinoma of biliary tract, NOS 01/30/2024 Orders Only [facility] [address] [facility] Main Bldg, 7th [place] [address] Reggie Suarez, [facility] 01/28/2024 Telephone [facility] - Infusion [address] [place] [address] Cameron Caban Jr., RN Follow-up 01/27/2024 10:00 AM CDT Infusion [facility] - Infusion [address] [place] [address] Dashawn Sutherland MD Alegado, Reynaldo F Jr., RN Cholangiocarcinoma of biliary tract, NOS (Primary Dx) 01/27/2024 Documentation [facility] [address] [facility] Main Bldg, 6th [place] [address] Gem Schmidt 01/27/2024 Travel 01/26/2024 1:15 PM CDT Ancillary Procedure [address] [address] Marbella Pereira PA Cholangiocarcinoma of biliary tract, NOS 01/26/2024 Documentation [facility] - Medical Oncology [address] [place] [address] Marbella Pereira PA 01/26/2024 Orders Only [facility] - Medical Oncology [address] [place] [address] Marbella Pereira PA 01/26/2024 Travel 01/20/2024 Orders Only [facility] - Medical Oncology [address] [place] [address] Marbella Pereira PA Cholangiocarcinoma of biliary tract, NOS (Primary Dx) 01/20/2024 Orders Only [facility] [address] [facility] Main Bldg, 7th [place] [address] Marbella Pereira PA Cholangiocarcinoma of biliary tract, NOS (Primary Dx) 01/20/2024 Documentation [facility] [address] [facility] Main dg, 6th [place] [address] Gem Schmidt 01/20/2024 Orders Only [facility] [address] [facility] Main dg, 6th [place] [address] Jose Finch MD Immunotherapy for cancer (Primary Dx) 01/20/2024 Orders Only [facility] [address] [place] [address] Marbella Pereira PA 01/19/2024 3:00 PM BARREL BANDER Follow-Up [address] [address] Dashawn Sutherland MD Cholangiocarcinoma of biliary tract, NOS (Primary Dx) 01/19/2024 Orders Only [facility] [address] [facility] Main dg, 7th [place] [address] Ney Sierra, [facility] 01/19/2024 Travel 01/16/2024 5:00 PM BARREL BANDER - 01/16/2024 11:59 PM [facility]REL BANDER Hospital En[facility] [address] [facility], 8th [place] [address] Dashawn Sutherland MD Zarate, Iris Davidson, crew leader Disposition: Home 01/16/2024 4:15 PM BARREL BANDER Ancillary Procedure [facility] [address] [facility], 4th [place] [address] Marbella Pereira PA Cholangiocarcinoma of biliary tract, NOS 01/16/2024 Travel 01/14/[address] [address] Isreal Ngo, RN 01/14/2024 Orders Only [facility] [address] [place] [address] Marbella Pereira PA Cholangiocarcinoma of biliary tract, NOS (Primary Dx) 01/14/2024 Travel 01/14/2024 Lab Requisition [facility] Ryan Loredo MD Raza, Roshan 01/14/2024 Lab Requisition [facility] Ryan Loredo MD Jain, Shilpa, MD 01/12/[address] [address] Magnolia Spencer MA 01/09/2024 11:30 PM BARREL BANDER Ancillary Procedure [facility] [address] [place] [address] Dashawn Sutherland MD Cancer 01/09/2024 11:25 PM BARREL BANDER Ancillary Procedure [facility] [address] [place] [address] Dashawn Sutherland MD Cancer 01/09/2024 11:20 PM BARREL BANDER Ancillary Procedure [facility] [address] [place] [address] Dashawn Sutherland MD Cancer 01/09/2024 11:15 PM BARREL BANDER Ancillary Procedure [facility] [address] [place] [address] Dashawn Sutherland MD Cancer 01/09/2024 Orders Only [facility] [address] [place] [address] Marbella Pereira PA 01/08/2024 Orders Only [facility] [address] [place] [address] Marbella Pereira PA Cholangiocarcinoma of biliary tract, NOS (Primary Dx) 01/07/2024 2:35 PM BARREL BANDER Ancillary Procedure [address] [address] Dashawn Sutherland MD Cholangiocarcinoma of biliary tract, NOS 01/07/2024 1:00 PM BARREL BANDER Office Visit [facility] - Medical Oncology [address] [place] [address] Dashawn Sutherland MD Cholangiocarcinoma of biliary tract, NOS (Primary Dx) 01/07/2024 12:30 PM BARREL BANDER NPR [facility] PATIENT ACCESS 01/07/2024 Orders Only MD [facility] [place] [facility] [address] [place] [address] Marbella Pereira PA Cholangiocarcinoma of biliary tract, NOS (Primary Dx) 01/07/2024 Travel 01/05/2024 Orders Only [facility] [address] [facility] Main Bldg, 7th [place] [address] Dashawn Sutherland MD Cholangiocarcinoma of biliary tract, NOS (Primary Dx) 12/26/2023 Telephone [facility] Main dg, 7th [place] [address] Kristine Farias, RN after 03/10/2023 Surgical History Surgery Date Site/Laterality Comments COLONOSCOPY 2019 Clear CORONARY ARTERY BYPASS GRAFT 2012 Medical History Medical History Date Comments Myocardial infarction 10/2013 Hyperlipidemia 2010 Hearing loss 2010 Wears hearing ai ds 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 Sexual dysfunction 2016 Malignant neoplasm of prostate 2017 Squamous cell carcinoma in situ of skin 2020 Basal cell carcinoma of skin 2020 Family History Medical History Relation Name Comments Pancreatic cancer Mother Verna james Relation Name Status Comments Father Nabeel James (Age 92) nattural c auses Mother Verna james (Age 80) ca ncer Social History Tobacco Use Types Packs/Day Years Used Date Smoking Tobacco: Never Smokeless Tobacco: Never Alcohol Use Standard Drinks/Week Comments Not Currently 0 (1 standard drink = 0.6 oz pur e alcohol) Maybe one beer a month Sex and Gender Information Value Date Recorded Sex Assigned at Not on file Gender Identity Not on file Sexual Orientation Not on file Job Start Date Occupation Industry Not on file Not on file Not on file Obstetrics History Last Filed Vital Signs Vital Sign Reading Time Taken Comments Blood Pressure 149/72 03/09/2024 11:00 AM CDT Pulse 65 03/09/2024 11:00 AM CDT Temperature 37 C (98.6 F) 03/09/2024 9:19 AM CDT Respiratory Rate 18 03/09/2024 9:19 AM CDT Oxygen Saturation 98% 03/09/2024 9:19 AM CDT Inhaled Oxygen Concentration - - Weight 74.2 kg (163 lb 9.3 oz) 03/09/2024 9:16 A M CDT Height 162.5 cm (5' 3.98") 01/27/2024 11:23 AM C DT Body Mass Index 28.1 01/27/2024 11:23 AM CDT Plan of Treatment Upcoming Encounters Date Type Department Care Team Description 03/23/2024 7:30 AM CDT Lab MD [facility] [address] [place] [address] Marbella Pereira PA [address] [place] [address] 03/23/2024 8:30 AM CDT Infusion [facility] [address] [place] [address] Marbella Pereira PA [address] [place] [address] 03/23/2024 1:45 PM CDT Ancillary Procedure [facility] [address] [address] Marbella Pereira PA [facility] [place] [address] 03/29/2024 9:30 AM CDT Follow-Up MD [facility] [address] [place] [address] Dashawn Sutherland MD [address] [place] [address] 04/06/2024 7:00 AM CDT Lab MD [facility] [address] [place] [address] Marbella Pereira PA [address] [place] [address] 04/06/2024 8:00 AM CDT Infusion [facility] - [address] [address] Marbella Pereira PA [address] [place] [address] 04/09/2024 10:30 AM CDT Consult [facility] [address] [facility], 7th [place] [address] Al Quick IV, MD [address] [place] [address] 04/20/2024 8:00 AM CDT Lab MD [facility] [address] [place] [address] Marbella Pereira PA [address] [place] [address] 04/20/2024 9:00 AM CDT Infusion [facility] - [address] [address] Marbella Pereira PA [address] [place] [address] 05/04/2024 8:00 AM CDT Lab MD [facility] [address] [place] [address] Marbella Pereira PA [address] [place] [address] 05/04/2024 9:00 AM CDT Infusion [facility] [address] [place] [address] Marbella Pereira PA [address] [place] [address] Health Maintenance Due Date Last Done Comments COVID-19 Vaccine (#1) 1950 Influenza Vaccine 07/18/2023 Medical Devices Implanted Type Area Corporate Communications Manager Device Identifier Shelf Expiration Date Model / Serial / Lot Cardiac Stent Stent Description:Per MD [facility] policy conditional Biliary Stent-01/14/2024 Implanted:2023 (Quantity not on file) Stent Bile Duct Description:Placed in 024 at [facility], Per in Dr.Brown pena to proceed up to 3T on normal operating mode. Cleared on 01/16/24 @4:20pm Procedures Procedure Name Priority Date/Time Associated Diagnosis Comments .CBC Routine 03/09/2024 8:13 AM CDT Cholangiocarcinoma of biliary tract, NOS COMPLETE BLOOD COUNT W/ DIFFERENTIAL Routine 03/09/2024 8:13 AM CDT Cholangiocarcinoma of biliary tract, NOS COMPREHENSIVE METABOLIC PANEL Routine 03/09/2024 8:13 AM CDT Cholangiocarcinoma of biliary tract, NOS HEMOGLOBIN A1C Add-On 02/24/2024 7:23 AM CDT Cholangiocarcinoma of biliary tract, NOS DIFFERENTIAL Routine 02/24/2024 7:23 AM CDT Cholangiocarcinoma of biliary tract, NOS .CBC Routine 02/24/2024 7:23 AM CDT Cholangiocarcinoma of biliary tract, NOS CARCINOEMBRYONIC ANTIGEN Routine 024 7:23 AM CDT Cholangiocarcinoma of biliary tract, NOS CARBOHYDRATE ANTIGEN 19-9 Routine 02/24/2024 7:23 AM CDT Cholangiocarcinoma of biliary tract, NOS FREE THYROXINE Routine 02/24/2024 7:23 AM CDT Cholangiocarcinoma of biliary tract, NOS THYROID STIMULATING HORMONE Routine 02/24/2024 7:23 AM CDT Cholangiocarcinoma of biliary tract, NOS COMPLETE BLOOD COUNT W/ DIFFERENTIAL Routine 02/24/2024 7:23 AM CDT Cholangiocarcinoma of biliary tract, NOS COMPREHENSIVE METABOLIC PANEL Routine 02/24/2024 7:23 AM CDT Cholangiocarcinoma of biliary tract, NOS .CBC Routine 02/10/2024 8:30 AM CDT Cholangiocarcinoma of biliary tract, NOS COMPLETE BLOOD COUNT W/ DIFFERENTIAL Routine 02/10/2024 8:30 AM CDT Cholangiocarcinoma of biliary tract, NOS COMPREHENSIVE METABOLIC PANEL Routine 02/10/2024 8:30 AM CDT Cholangiocarcinoma of biliary tract, NOS CT ABDOMEN PELVIS WO CONTRAST Routine 02/05/2024 11:07 AM CDT Cholangiocarcinoma of biliary tract, NOS Right lower quadrant pain .CBC Routine 02/05/2024 9:27 AM CDT Cholangiocarcinoma of biliary tract, NOS Right lower quadrant pain COMPREHENSIVE METABOLIC PANEL Routine 02/05/2024 9:27 AM CDT Cholangiocarcinoma of biliary tract, NOS Right lower quadrant pain COMPLETE BLOOD COUNT W/ DIFFERENTIAL Routine 02/05/2024 9:27 AM CDT Cholangiocarcinoma of biliary tract, NOS Right lower quadrant pain .CBC Routine 01/27/2024 9:16 AM CDT Cholangiocarcinoma of biliary tract, NOS TROPONIN T Routine 01/27/2024 9:16 AM CDT Immunotherapy for cancer NT PRO BNP Routine 01/27/2024 9:16 AM CDT Immunotherapy for cancer TROPONIN I Routine 01/27/2024 9:16 AM CDT Immunotherapy for cancer LIPID PANEL Routine 01/27/2024 9:16 AM CDT Immunotherapy for cancer CREATINE KINASE Routine 01/27/2024 9:16 AM CDT Immunotherapy for cancer CKMB Routine 01/27/2024 9:16 AM CDT Immunotherapy for cancer CARCINOEMBRYONIC ANTIGEN Routine 024 9:16 AM CDT Cholangiocarcinoma of biliary tract, NOS CARBOHYDRATE ANTIGEN 19-9 Routine 01/27/2024 9:16 AM CDT Cholangiocarcinoma of biliary tract, NOS FREE THYROXINE Routine 01/27/2024 9:16 AM CDT Cholangiocarcinoma of biliary tract, NOS THYROID STIMULATING HORMONE Routine 01/27/2024 9:16 AM CDT Cholangiocarcinoma of biliary tract, NOS COMPLETE BLOOD COUNT W/ DIFFERENTIAL Routine 01/27/2024 9:16 AM CDT Cholangiocarcinoma of biliary tract, NOS COMPREHENSIVE METABOLIC PANEL Routine 01/27/2024 9:16 AM CDT Cholangiocarcinoma of biliary tract, NOS VERIFY CATHETER TIP PLACEMENT Routine 01/26/2024 2:18 PM CDT Cholangiocarcinoma of biliary tract, NOS XR CHEST 2 VW Routine 01/26/2024 1:30 PM CDT Cholangiocarcinoma of biliary tract, NOS EKG, 12-LEAD (SCHEDULED) Routine 01/26/2024 Immunotherapy for cancer .CBC Routine 01/19/2024 2:09 PM BARREL BANDER Cholangiocarcinoma of biliary tract, NOS COMPREHENSIVE METABOLIC PANEL Routine 01/19/2024 2:09 PM BARREL BANDER Cholangiocarcinoma of biliary tract, NOS COMPLETE BLOOD COUNT W/ DIFFERENTIAL Routine 01/19/2024 2:09 PM BARREL BANDER Cholangiocarcinoma of biliary tract, NOS MRI ABDOMEN & PELVIS W AND WO CONTRAST Routine 01/16/2024 6:53 PM BARREL BANDER Cholangiocarcinoma of biliary tract, NOS .CBC Routine 01/14/2024 9:53 AM BARREL BANDER Cholangiocarcinoma of biliary tract, NOS CARBOHYDRATE ANTIGEN 19-9 Routine 01/14/2024 9:53 AM BARREL BANDER Cholangiocarcinoma of biliary tract, NOS COMPREHENSIVE METABOLIC PANEL Routine 01/14/2024 9:53 AM BARREL BANDER Cholangiocarcinoma of biliary tract, NOS COMPLETE BLOOD COUNT W/ DIFFERENTIAL Routine 01/14/2024 9:53 AM BARREL BANDER Cholangiocarcinoma of biliary tract, NOS CT CHEST WO CONTRAST Routine 01/07/2024 4:49 PM BARREL BANDER Cholangiocarcinoma of biliary tract, NOS POC CREATININE Routine 01/07/2024 3:57 PM BARREL BANDER OSI INTERVENTIONAL Routine 12/19/2023 11 :58 PM [facility]REL BANDER Cancer OSI INTERVENTIONAL Routine 12/09/2023 11 :57 PM BARREL BANDER Cancer OSI CT CHEST Routine 12/09/2023 11:57 PM BARREL BANDER Cancer OSI CT ABDOMEN AND PELVIS Routine 12/09/2023 11:57 PM BARREL BANDER Cancer PATHOLOGY OUTSIDE INTERPRETATION Routine 12/09/2023 PATHOLOGY OUTSIDE INTERPRETATION Routine 12/09/2023 after 03/10/2023 Results * (ABNORMAL) .CBC (03/09/2024 8:13 AM CDT) Only the most recent of7 resultswithin the time period is included. White Blood Cell 11.2(H) 4.1 - 10.5 K/uL 03/09/2024 8:22 AM CDT [facility] Red Blood Cell 2.99(L) 4.30 - 6.04 M/uL 03/09/2024 8:22 AM T [facility] Hemoglobin 9.1(L) 13.3 - 17.4 g/dL 03/09/2024 8:22 AM [facility] Hematocrit 28.0(L) 39.5 - 51.8 % 03/09/2024 8:22 AM [facility] Mean Cell Volume 94 82 - 99 fL 03/09/2024 8:22 AM [facility] Mean Cell Hemoglobin 30.4 26.6 - 33.2 pg 03/09/2024 8:22 AM [facility] Mean Cell Hemoglobin Concentration 32.5 31.1 - 35.2 g/dL 03/09/2024 8:22 AM [facility] RDW-SD 49.1 37.5 - 49.7 fL 03/09/2024 8:22 AM [facility] Red Cell Diameter Width 15.0 11.6 - 15.5 % 03/09/2024 8:22 AM [facility] Platelet 193 160 - 397 K/uL 03/09/2024 8:22 AM [facility] Mean Platelet Volume 9.8 9.1 - 12.6 fL 03/09/2024 8:22 AM [facility] Neutrophil % 64.5 43.2 - 72.7 % 03/09/2024 8:22 AM [facility] Lymphocyte % 14.0(L) 16.8 - 46.2 % 03/09/2024 8:22 AM [facility] Monocyte % 19.8(H) 5.1 - 12.5 % 03/09/2024 8:22 AM [facility] Eosinophil % 0.9 0.4 - 6.3 % 03/09/2024 8:22 AM [facility] Basophil % 0.2 0.2 - 1.4 % 03/09/2024 8:22 AM [facility] IGRE % 0.6 0.1 - 1.5 % 03/09/2024 8:22 AM [facility] Comment:The IGRE% includes M etamyelocytes, Myelocytes and Promyelocytes. Neutrophil Abs 7.19 1.95 - 7.25 K/uL 03/09/2024 8:22 AM [facility] Lymphocyte Abs 1.56 1.01 - 3.24 K/uL 03/09/2024 8:22 AM [facility] Monocyte Abs 2.21(H) 0.24 - 0.85 K/uL 03/09/2024 8:22 AM [facility] Eosinophil Abs 0.10 0.02 - 0.50 K/uL 03/09/2024 8:22 AM [facility] Basophil Abs 0.02 0.02 - 0.09 K/uL 03/09/2024 8:22 AM [facility] IG Abs 0.07 0.01 - 0.12 K/uL 03/09/2024 8:22 AM [facility] Blood Venous blood specimen / Unknown Port / Unknown 03/09/2024 8:13 AM CDT 03/09/2024 8:17 AM CDT Marbella GRAJEDA LAB BLOOD ORDERABLES [facility] [address] [facility], [facility] [address] [place] [address] * (ABNORMAL) Comprehensive Metabolic Panel (03/09/2024 8:13 AM CDT) Only the most recent of7 resultswithin the time period is included. Bilirubin Total 0.3 0.0 - 1.2 mg/dL 03/09/2024 8:42 AM [facility] Comment:Indocyanine Green (I CG) may cause falsely elevated bilirubin results. Total and direct bilirubin must not be measured from samples containing indocyanine green. False elevation of total bilirubin can be seen in patients with IgG concentrations above 28 g/L. eGFR 44(L) >=60 mL/min/1. 73 sq. m 03/09/2024 8:42 AM [facility] Comment: The eGFRcr is calculated with the 2020 CKD-EPI creatinine equation using creatinine, patient's age, and sex for adults 18 years of age and older. Other factors, especially muscle mass, may affect accuracy and need to be considered. According to the Kidney Disease: Improving Global Outcomes (KDIGO) CKD Work Group 2012 Clinical Practice Guideline, chronic kidney disease (CKD) is defined as the abnormalities of kidney structure or function, present for more than 3 months, with implications for health. CKD should be classified by cause, GFR category, and albuminuria category. KDIGO guidelines provide the following GFR categories. Stage / Description / GFR mL/min/1.73 m2: G1* / Normal or high / >= 90 G2* / Mildly decreased / 60-89 G3a / Mildly to moderately decreased / 45-59 G3b / Moderately to severely decreased / 30-44 G4 / Severely decreased / 15-29 G5 / Kidney failure / <15 *In the absence of evidence of kidney damage, neither G1 nor G2 fulfill criteria for CKD. Tot Protein 7.5 6.4 - 8.3 gm/dL 03/09/2024 8:42 AM [facility] Calcium Level Total 9.6 8.2 - 10.2 mg/dL 03/09/2024 8:42 AM [facility] Alkaline Phosphatase 143(H) 40 - 129 U/L 03/09/2024 8:42 AM [facility] Albumin Level 3.6 3.5 - 5.2 gm/dL 03/09/2024 8:42 AM [facility] AST 47(H) <=40 U/L 03/09/2024 8:42 AM [facility] ALT 57(H) <=41 U/L 03/09/2024 8:42 AM [facility] Sodium Level 139 136 - 145 mmol/L 03/09/2024 8:42 AM [facility] Potassium Level 4.3 3.4 - 4.5 mmol/L 03/09/2024 8:42 AM [facility] Chloride 106 98 - 107 mmol/L 03/09/2024 8:42 AM [facility] CO2 24 22 - 29 mmol/L 03/09/2024 8:42 AM [facility] Anion Gap 9 4 - 14 mmol/L 03/09/2024 8:42 AM [facility] Creatinine 1.59(H) 0.67 - 1.17 mg/dL 03/09/2024 8:42 AM [facility] BUN 24(H) 6 - 23 mg/dL 03/09/2024 8:42 AM [facility] Glucose Level 138(H) 70 - 99 mg/dL 03/09/2024 8:42 AM [facility] Comment: Effective 06/12/16, the glucose reference intervals have been updated based on [place] [employer] guidelines (Standards of Medical Care in Diabetes 2016. Diabetes Care 2016; 39: S13-S22). Fasting blood glucose: Normal: 70-99 mg/dL Impaired fasting glucose (increased risk for diabetes or pre-diabetes): 100-125 mg/dL Diabetes mellitus: >/=126 mg/dL Random blood glucose: Normal: 70-199 mg/dL Note: Random glucose >100 mg/dL is associated with increased risk for diabetes. Blood Venous blood specimen / Unknown Port / Unknown 03/09/2024 8:13 AM CDT 03/09/2024 8:17 AM CDT Marbella GRAJEDA LAB BLOOD ORDERABLES Performing Organization Address City/[facility] Co de Phone Number [address], [address] [address] * (ABNORMAL) CA 19-9 (02/24/2024 7:23 AM CDT) Only the most recent of3 resultswithin the time period is included. CA 19-9 49.3(H) <=35.0 U/mL 02/24/2024 8:54 AM CDT [facility] Blood Venous blood specimen / Unknown Port / Unknown 02/24/2024 7:23 AM CDT 02/24/2024 7:27 AM CDT [facility] - 02/24/2024 8:54 AM CDT Results greater than 9500 U/mL may not be reliable due to matrix effect with extended dilution as it exceeds the energy efficient site manager's recommended limit. Caution should be exercised when interpreting such values and done in conjunction with clinical context. This test is measured by electrochemiluminescence immunoassay on Parker Kat immunoassay analyzers. Results obtained in different methods are not interchangeable. Marbella GRAJEDA LAB BLOOD ORDERABLES Performing Organization Address [facility] Co de Phone Number [address], [address] [address] * (ABNORMAL) Differential (02/24/2024 7:23 AM CDT) Total Cells 100 02/24/2024 7:57 AM [facility] Manual Neutrophil % 46.0 43.2 - 72.7 % 02/24/2024 7:57 AM [facility] Comment:The Neutrophil count includes Bands. Manual Lymphocyte % 35.0 16.8 - 46.2 % 02/24/2024 7:57 AM [facility] Manual Monocyte % 18.0(H) 5.1 - 12.5 % 02/24/2024 7:57 AM [facility] Manual Eosinophil % 1.0 0.4 - 6.3 % 02/24/2024 7:57 AM [facility] Metamyelocyte % 7:57 AM [facility] Comment:The Metamyelocyte co unt includes Myelocytes. Manual Neutrophil Abs 2.94 1.95 - 7.25 K/uL 02/24/2024 7:57 AM [facility] Manual Lymphocyte Abs 2.24 1.01 - 3.24 K/uL 02/24/2024 7:57 AM [facility] Manual Monocyte Abs 1.15(H) 0.24 - 0.85 K/uL 02/24/2024 7:57 AM [facility] Manual Eosinophil Abs 0.06 0.02 - 0.50 K/uL 02/24/2024 7:57 AM [facility] RBC Morphology NORMAL 02/24/2024 7:57 AM [facility] PLT Morph Normal Normal 02/24/2024 7:57 AM [facility] Blood Venous blood specimen / Unknown Port / Unknown 02/24/2024 7:23 AM CDT 02/24/2024 7:27 AM CDT Marbella GRAJEDA LAB BLOOD ORDERABLES TRISHA [facility] [address] [facility], [facility] [address] [place] [address] * TSH (02/24/2024 7:23 AM CDT) Only the most recent of2 resultswithin the time period is included. Pathologist [facility] Thyroid Stimulating Hormone 1.66 0.27 - 4.20 mcunit/mL 02/24/2024 8:54 AM CDT [facility] Blood Venous blood specimen / Unknown Port / Unknown 02/24/2024 7:23 AM CDT 02/24/2024 7:27 AM CDT Marbella GRAJEDA LAB BLOOD ORDERABLES Performing Organization Address [facility]/[place] [address] * Free T4 (02/24/2024 7:23 AM CDT) Only the most recent of2 resultswithin the time period is included. T4 (Thyroxine) Free 1.62 0.93 - 1.70 ng/dL 02/24/2024 8:54 AM CDT [facility] Blood Venous blood specimen / Unknown Port / Unknown 02/24/2024 7:23 AM CDT 02/24/2024 7:27 AM CDT Marbella GRAJEDA LAB BLOOD ORDERABLES Performing Organization Address [facility] [place] [address] * (ABNORMAL) Hemoglobin A1c (02/24/2024 7:23 AM CDT) Hemoglobin A1c 8.0(H) 4.3 - 5.6 % 02/24/2024 5:38 PM CDT [facility] Blood Venous blood specimen / Unknown Port / Unknown 02/24/2024 7:23 AM CDT 02/24/2024 7:27 AM CDT Narrative [facility] - 02/24/2024 5:38 PM CDT HbA1c values >=6.5% are diagnostic of diabetes mellitus. Diagnosis should be confirmed by repeat testing. Therapeutic Action suggested: >8.0% HbA1c; Goal of therapy: <7.0% HbA1c Dashawn Sutherland MD LAB BLOOD ORDERABLES Performing Organization Address City/State/[facility] Co de Phone Number [address], [facility] [address] [place] [address] * CEA (02/24/2024 7:23 AM CDT) Only the most recent of2 resultswithin the time period is included. Carcinoembryonic Antigen 2.4 <=3.8 ng/mL 02/24/2024 8:54 AM CDT [facility] Blood Venous blood specimen / Unknown Port / Unknown 02/24/2024 7:23 AM CDT 02/24/2024 7:27 AM CDT [facility] - 02/24/2024 8:54 AM CDT Reference Ranges (age 20-69 years): Non-smoker: 0.0 - 3.8 ng/mL Smoker: 0.0 - 5.5 ng/mL This test is measured by electrochemiluminescence immunoassay on Parker Kat immunoassay analyzers. Results obtained in different methods are not interchangeable. Marbella GRAJEDA LAB BLOOD ORDERABLES Performing Organization Address [facility] Co de Phone Number [address], [facility] [address] [place] [address] * CT Abdomen Pelvis without Contrast (02/05/2024 11:07 AM CDT) Anatomical Region Laterality Modality Abdomen, Pelvis Computed Tomogra phy 02/06/2024 6:24 AM CDT Addenda Addendum by Angeles Zhao MD on 02/10/2024 10:33 AM CDT Examination: CT ABDOMEN AND PELVIS WO CONTRAST on 02/05/2024 10:57 AM Technique: CT images of the abdomen and pelvis without IV contrast Impressions 02/06/2024 6:41 AM CDT 1. There is new mild to moderate hydronephrosis in the right kidney. The transition zone is in the proximal ureter secondary to a 1.5 cm calculus. 2. Bilateral nonobstructive renal calculi. 3. Renal lesions are suggestive of proteinaceous cysts and simple cyst. This can be evaluated with follow-up imaging. 4. New wall stent in the common bile duct. Evaluation of the soft tissue thickening in the bile duct is limited without IV contrast. ACTIONABLE ITEMS/RECOMMENDATIONS: See impression. Narrative 02/06/2024 6:41 AM CDT Comparison: 12/09/2023 Technique: CT images of the chest, abdomen and pelvis with IV contrast CHEST FINDINGS: There is no pneumonia. There is no pleural effusion. ABDOMEN AND PELVIS FINDINGS: The lack of intravenous contrast limits evaluation. Hepatobiliary: There is a new biliary wall stent draining segment 3. There is intrahepatic biliary air probably related to stent placement. Evaluation of the common bile duct and soft tissue thickening seen on the prior study is limited without intravenous contrast. The gallbladder has been resected. Spleen: There is no splenomegaly. Pancreas: The pancreas is partially fatty replaced. Adrenal Glands: There is no adrenal mass. Kidneys, Ureters, Bladder: There is moderate hydronephrosis in the right kidney. This is new. There is a 1.5 cm calculus in the proximal ureter. This is seen on series 4 image 65. This is grossly stable. There are bilateral nonobstructive renal calculi. This can be seen on series 3 image 63, 67 and 74. There are high attenuation renal lesions. These t are suggestive of proteinaceous/hemorrhagic cysts. * This 0.8 mm lesion on image 62 series 3. * There is a 8.5 mm lesion on image 77. There is a cyst in the left kidney on image 59 series 3. Gastrointestinal Tract: There is no bowel obstruction. The appendix is normal. There is reflux of contrast in the appendix seen on image 95 series 3. There are diverticuli in the colon. There is a diverticulum in the transverse duodenum. Seen on series 4 image 59. Pelvic Organs: The bladder is underdistended. The prostate measures 5.3 x 3.8 cm. Peritoneum/Retroperitoneum: There is increase attenuation of the peritoneal fat in the left upper quadrant. This is seen on image 38 series 3. This is probably related to postsurgical changes. The patient underwent exploratory laparotomy on 12/23/2023. Lymph Nodes: There is no enlarged lymph nodes. Lines and Tubes: There is a wall stent in the common bile duct draining segment 3 of the liver. MUSCULOSKELETAL FINDINGS: There is degenerative disk disease is in the spine. There are atherosclerotic calcifications of the aorta and branches. There are postsurgical changes in the abdomen. Procedure Note Angeles Zhao MD - 02/06/2024 Comparison: 12/09/2023 Technique: CT images of the chest, abdomen and pelvis with IV contrast CHEST FINDINGS: There is no pneumonia. There is no pleural effusion. ABDOMEN AND PELVIS FINDINGS: The lack of intravenous contrast limits evaluation. Hepatobiliary: There is a new biliary wall stent draining segment 3. There isintrahepatic biliary air probably related to stent placement. Evaluation of the common bile duct and soft tissue thickening seen on theprior study is limited without intravenous contrast. The gallbladder has been resected. Spleen: There is no splenomegaly. Pancreas: The pancreas is partially fatty replaced. Adrenal Glands: There is no adrenal mass. Kidneys, Ureters, Bladder: There is moderate hydronephrosis in the right kidney. This is new. There is a 1.5 cm calculus in the proximal ureter. This is seen on series4 image 65. This is grossly stable. There are bilateral nonobstructive renal calculi. This can be seen onseries 3 image 63, 67 and 74. There are high attenuation renal lesions. These t are suggestive ofproteinaceous/hemorrhagic cysts. * This 0.8 mm lesion on image 62 series 3. * There is a 8.5 mm lesion on image 77. There is a cyst in the left kidney on image 59 series 3. Gastrointestinal Tract: There is no bowel obstruction. The appendix is normal. There is reflux of contrast in the appendix seenon image 95 series 3. There are diverticuli in the colon. There is a diverticulum in the transverse duodenum. Seen on series 4 image59. Pelvic Organs: The bladder is underdistended. The prostate measures 5.3 x 3.8 cm. Peritoneum/Retroperitoneum: There is increase attenuation of the peritoneal fat in the left upperquadrant. This is seen on image 38 series 3. This is probably related topostsurgical changes. The patient underwent exploratory laparotomy on12/23/2023. Lymph Nodes: There is no enlarged lymph nodes. Lines and Tubes: There is a wall stent in the common bile duct drainingsegment 3 of the liver. MUSCULOSKELETAL FINDINGS: There is degenerative disk disease is in the spine. There are atherosclerotic calcifications of the aorta and branches. There are postsurgical changes in the abdomen. IMPRESSION: 1. There is new mild to moderate hydronephrosis in the right kidney. Thetransition zone is in the proximal ureter secondary to a 1.5 cmcalculus. 2. Bilateral nonobstructive renal calculi. 3. Renal lesions are suggestive of proteinaceous cysts and simple cyst.This can be evaluated with follow-up imaging. 4. New wall stent in the common bile duct. Evaluation of the soft tissuethickening in the bile duct is limited without IV contrast. ACTIONABLE ITEMS/RECOMMENDATIONS: See impression. Marbella GRAJEDA IMG CT ORDERABLES * (ABNORMAL) NT-Pro BNP (In-House) (01/27/2024 9:16 AM CDT) NT-ProBNP 1,432(H) <=450 pg/mL 01/27/2024 3:01 PM CDT [facility] Blood Peripheral blood specimen / Unknown Port / Unknown 01/27/2024 9:16 AM CDT 01/27/2024 9:17 AM CDT Jose Finch MD LAB BLOOD ORDERABLES [facility] Unless otherwise noted, all lab tests performed by: Division of Pathology and Laboratory Medicine [address] [place] [id number] * Troponin I (Sendout) (01/27/2024 9:16 AM CDT) Troponin-I 27 <=78 01/28/2024 7:08 AM CDT [facility], [facility] Blood Peripheral blood specimen / Unknown Port / Unknown 01/27/2024 9:16 AM CDT 01/27/2024 9:17 AM CDT Narrative [facility] - 01/28/2024 7:08 AM CDT Based on the Third [place] Definition of Mycocardial Infarction, the 99th percentile upper reference limit of Troponin I for a healthy population is <0.03 ng/mL. Jose Finch MD LAB BLOOD ORDERABLES [facility] [address] [place] [address], * (ABNORMAL) Troponin T (In-House) (01/27/2024 9:16 AM CDT) Troponin T 34(H) <=19 ng/L 01/27/2024 2:57 PM CDT [facility] Blood Peripheral blood specimen / Unknown Port / Unknown 01/27/2024 9:16 AM CDT 01/27/2024 9:17 AM CDT Narrative [facility] - 01/27/2024 2:57 PM CDT Reference range established for age 21 - 89 years < 19 ng/L, suggest retest at 3 to 6 hours later to rule out myocardial infarction >= 19 to <=52 ng/L, possible myocardial injury; suggest retest at 3 hours - a change of < 20 ng/L, retest at 6 hours - a change of >= 20 ng/L, suggestive of myocardial infarction > 52 ng/L, suggestive of myocardial infarction Critical value will be reported when cTnT isf > 52 ng/L and only reported for the first in a series. Hemolyzed specimens with Hemolysis Index >100 (100 mg/dl or moderate hemolysis) may cause interferences and falsely low results. Jose Finch MD LAB BLOOD ORDERABLES [facility] Unless otherwise noted, all lab tests performed by: Division of Pathology and Laboratory Medicine [address] [place] [id number] * CKMB (01/27/2024 9:16 AM CDT) CKMB <2.0 <=10.4 ng/mL 01/27/2024 3:01 PM CDT [facility] Blood Peripheral blood specimen / Unknown Port / Unknown 01/27/2024 9:16 AM CDT 01/27/2024 9:17 AM CDT Jose Finch MD LAB BLOOD ORDERABLES [facility] Unless otherwise noted, all lab tests performed by: Division of Pathology and Laboratory Medicine [facility] [place] [address] * Creatine Kinase (01/27/2024 9:16 AM CDT) Creatine Kinase 41 39 - 308 U/L 01/27/2024 3:01 PM CDT [facility] Blood Peripheral blood specimen / Unknown Port / Unknown 01/27/2024 9:16 AM CDT 01/27/2024 9:17 AM CDT Jose Finch MD LAB BLOOD ORDERABLES [facility] Unless otherwise noted, all lab tests performed by: Division of Pathology and Laboratory Medicine [address] [place] [id number] * (ABNORMAL) Lipid Panel (01/27/2024 9:16 AM CDT) Pathologist [facility] Cholesterol Total 142 <=199 mg/dL 01/27/2024 9:55 AM [facility] Comment: ATP III Classification of Total Cholesterol - Primary Target of Therapy (in mg/dL): <200 Desirable 200-239 Borderline high >=240 High Triglyceride 210(H) <=149 mg/dL 01/27/2024 9:55 AM [facility] Comment: ATP III Classification of Serum Triglycerides Primary Target of Therapy (in mg/dL): <150 Normal 150-199 Borderline high 200-499 High >=500 Very high Non-fasting triglycerides >200 mg/dL may be followed up with a fasting Lipid Panel. Calculated LDL-C may be falsely decreased when non-fasting triglycerides >200 mg/dL. HDL Cholesterol 39(L) >=40 mg/dL 01/27/2024 9:55 AM [facility] LDL Cholesterol 61 <=100 mg/dL 01/27/2024 9:55 AM [facility] Comment: ATP III Classification of LDL Cholesterol Primary Target of Therapy (in mg/dL): <100 Optimal 100-129 Near optimal/above optimal 130-159 Borderline high 160-189 High >=190 Very high Very Low Density Lipoprotein 42 mg/dL 01/27/2024 9:55 AM [facility] Is patient fasting? Yes 01/26 9:55 AM CDT [facility] Blood Peripheral blood specimen / Unknown Port / Unknown 01/27/2024 9:16 AM CDT 01/27/2024 9:17 AM CDT Jose Finch MD LAB BLOOD ORDERABLES [facility] [address] [facility], [facility] [address] [place] [address] * Tip Verification Central Vascular Access Device (01/26/2024 2:18 PM CDT) Narrative Marbella Pereira PA - 01/26/2024 2:18 PM CDT Marbella Pereira PA 01/26/2024 2:31 PM Central Vascular Access Device Tip Verification Performed by: Marbella Pereira PA Authorized by: Marbella Pereira PA CVAD Properties Date device placed: 01/23/2024 Device placement location: Outside facility Catheter Type: Implanted venous port Laterality: Right Tip Verification Properties Diagnostic image available: Chest xray Written diagnostic report available: Yes Tip location per report: Superior vena cava Tip in good position and cleared for infusion Marbella GRAJEDA IV THERAPY ORDERABLE S * XR Chest 2 Views (01/26/2024 1:30 PM CDT) Anatomical Region Laterality Modality Chest Digital Radiogra phy 01/26/2024 1:31 PM CDT Impressions 01/26/2024 1:32 PM CDT Right central catheter with its distal tip over the proximal SVC and without evident pneumothorax ACTIONABLE ITEMS/RECOMMENDATIONS*: None. Narrative 01/26/2024 1:32 PM CDT FULL RESULT: Examination: XR CHEST 2 VW on 01/26/2024 1:30 PM. Clinical History: Cholangiocarcinoma of biliary tract, NOS Indication: Other:, confirm tip position of catheter Comparison: None Technique: Posteroanterior, lateral and dual-energy radiographs of the chest Findings: Support Apparatus: Right central catheter with its distal tip over the proximal SVC, best seen on frontal view. Lungs/Pleura/Mediastinum: No evident pneumothorax. No evidence of focal lung opacities. Coronary artery bypass graft changes. Prominent cardiac silhouette. Procedure Note Benveniste, Sae, MD - 01/26/2024 FULL RESULT: Examination: XR CHEST 2 VW on 01/26/2024 1:30 PM. Clinical History: Cholangiocarcinoma of biliary tract, NOS Indication: Other:, confirm tip position of catheter Comparison: None Technique: Posteroanterior, lateral and dual-energy radiographs of thechest Findings: Support Apparatus: Right central catheter with its distal tip over theproximal SVC, best seen on frontal view. Lungs/Pleura/Mediastinum: No evident pneumothorax. No evidence of focallung opacities. Coronary artery bypass graft changes. Prominent cardiacsilhouette. IMPRESSION: Right central catheter with its distal tip over the proximal SVC andwithout evident pneumothorax ACTIONABLE ITEMS/RECOMMENDATIONS*: None. Marbella GRAJEDA IMG DIAGNOSTIC IMAGI NG ORDERABLES * EKG, 12-Lead (Scheduled) (01/26/2024) Jose Finch MD ECG ORDERABLES [facility] * MRI Abdomen & Pelvis with and without Contrast (01/16/2024 6:53 PM [facility]) Anatomical Region Laterality Modality Abdomen Magnetic Resonan ce 01/17/2024 5:58 AM [facility] Impressions 01/17/2024 7:20 AM [facility] Impression: 1. The primary tumor within the common bile duct is not well delineated secondary to metallic stent placement. Within the limits, there is persistent soft tissue thickening around the common bile duct at the hepatic hilum that is closely abutting the right hepatic artery and the main portal vein with remains concerning for tumor infiltration. 2. The previously seen left internal biliary drain and percutaneous right internal/external biliary drains have been removed since 01/07/2024 and a metallic stent has been placed in the common bile duct and left hepatic duct. No intrahepatic biliary ductal dilatation. 3. A new 1 cm ring-enhancing lesion in the right liver dome is indeterminate and could represent either sequela of cholangitis or a small metastasis. This should be closely monitored on follow-up imaging. 4. No suspicious intra-abdominal lymphadenopathy. ACTIONABLE ITEMS/RECOMMENDATIONS*: See impression. Narrative 01/17/2024 7:20 AM [facility] Examination: MRI ABDOMEN & PELVIS W AND WO CONTRAST on 01/16/2024 6:53 PM. Clinical History: Cholangiocarcinoma of biliary tract , status post laparotomy and exploration on 12/23/2023, which showed rockhard bile duct all the way down to the head of the pancreas and the tumor extended well up to the hilum in the liver and was deemed unresectable. The patient subsequently underwent ERCP and placement of metallic stent in the left hepatic system on 01/13/2024. 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 The PTC drain and old plastic stent was removed. Indication: Staging, cholangiocarcinoma. Comparison: Outside CT abdomen and pelvis dated 12/09/2023 and ERCP images from ERCP 01-10. Comparison is also made with CT chest without contrast dated 01/07/[address] chest with contrast dated 12/09/2023. No other prior studies are available for comparison at the time of this exam interpretation. Technique: Multiplanar multisequence MR imaging of the abdomen and pelvis is performed before and after the demonstration of intravenous contrast. Findings: Hepatobiliary: A metallic common bile stent distal tip terminates in the second portion of the duodenum and the proximal tip is seen in the left hepatic duct. The recently placed right-sided percutaneous drain seen on the CT dated 01/07/2024 and the left biliary internal plastic stent are removed. A linear subcutaneous tract is seen in the right lateral abdominal wall along the course of the removed drain (series 18, image 91). The metallic common bile duct stent is limiting the evaluation of the primary tumor within the bilateral. The right hepatic artery courses between the portal vein and the common hepatic duct. Minimal soft tissue thickening around the common bile duct and the hepatic hilum is seen that is closely abutting the right hepatic artery (series 16, image 509) and main portal vein (series 16, image 512). A 1 cm ring enhancing lesion in the segment 8 liver dome medially (series 16, image 174) shows corresponding T2 hyperintensity (series 15, image 9) and diffusion restriction. This is indeterminate and could represent either sequela of cholangitis or a small metastasis. A smaller arterially enhancing nodule measuring 0.5 cm slightly anteriorly and laterally (series 16, image 173) did not show any corresponding abnormality on the T2-weighted and diffusion-weighted, could represent perfusion change, but will be monitored on follow-up imaging. Few wedge-shaped areas of arterial enhancement in the right liver laterally (series 16, images 204-11) are consistent with perfusion changes. Small volume perihepatic fluid, predominantly along the medial aspect liver (image 25) is new since prior CT abdomen and pelvis dated 12/09/2023 and could be related to interval surgery versus sequela of transhepatic percutaneous biliary drain placement. The portal veins and hepatic veins are patent. The left-sided biliary system appears slightly more prominent, possibly due to drain placement. The right-sided biliary system is not dilated in spite of recent drain removal. Spleen: The spleen size is within normal limits.. No focal splenic parenchymal lesions are identified. Pancreas: The pancreatic head shows mild edema possibly secondary to recent stent placement. However, no peripancreatic fat stranding is seen. No pancreatic ductal dilatation is seen. Small scattered cysts are seen in the pancreatic body and tail (series 12, image 25) measuring up to 0.8 cm. Kidneys: Both kidneys demonstrate few scattered including the. No hydronephrosis or hydroureter or suspicious focal renal masses are seen. Adrenals: Both adrenal glands are unremarkable. GI Tract: No abnormally dilated small bowel or large bowel loops are seen. Bladder: The urinary bladder is well-distended and is unremarkable. Reproductive Organs: The prostate is unremarkable. Peritoneum/Retroperitoneum: No free intraperitoneal fluid is seen.. Lymph Nodes: No suspicious or abdominal lymphadenopathy. Mildly prominent portacaval node is likely reactive. Vessels: The abdominal aorta and IVC demonstrate normal course and caliber. Musculoskeletal: No suspicious osseous lesions are identified. Postsurgical changes of median sternotomy are incompletely imaged on this exam. Procedure Note Brielle Mckoy MD - 01/17/2024 Examination: MRI ABDOMEN & PELVIS W AND WO CONTRAST on 01/16/2024 6:53 PM. Clinical History: Cholangiocarcinoma of biliary tract , status postlaparotomy and exploration on 12/23/2023, which showed rockhard bile ductall the way down to the head of the pancreas and the tumor extended wellup to the hilum in the liver and was deemed unresectable. The patientsubsequently underwent ERCP and placement of metallic stent in the lefthepatic system on 01/13/2024. This ERCP with SpyGlass direct visualizationshowed Bismuth type 1 biliary stricture with tumor stop 1 cm beforebifurcation and the patient underwent biopsy of the mid common bile duct.The PTC drain and old plastic stent was removed. Indication: Staging, cholangiocarcinoma. Comparison: Outside CT abdomen and pelvis dated 12/09/2023 and ERCP imagesfrom ERCP 01-10. Comparison is also made with CT chest without contrastdated 01/07/[address] chest with contrast dated 12/09/2023. No other priorstudies are available for comparison at the time of this examinterpretation. Technique: Multiplanar multisequence MR imaging of the abdomen and pelvisis performed before and after the demonstration of intravenous contrast. Findings: Hepatobiliary: A metallic common bile stent distal tip terminates in thesecond portion of the duodenum and the proximal tip is seen in the lefthepatic duct. The recently placed right-sided percutaneous drain seen onthe CT dated 01/07/2024 and the left biliary internal plastic stent areremoved. A linear subcutaneous tract is seen in the right lateralabdominal wall along the course of the removed drain (series 18, image91). The metallic common bile duct stent is limiting the evaluation of theprimary tumor within the bilateral. The right hepatic artery coursesbetween the portal vein and the common hepatic duct. Minimal soft tissuethickening around the common bile duct and the hepatic hilum is seen thatis closely abutting the right hepatic artery (series 16, image 509) andmain portal vein (series 16, image 512). A 1 cm ring enhancing lesion in the segment 8 liver dome medially ([id number], image 174) shows corresponding T2 hyperintensity (series 15, image 9)and diffusion restriction. This is indeterminate and could representeither sequela of cholangitis or a small metastasis. A smaller arterially enhancing nodule measuring 0.5 cm slightly anteriorlyand laterally (series 16, image 173) did not show any correspondingabnormality on the T2-weighted and diffusion-weighted, could representperfusion change, but will be monitored on follow-up imaging. Fewwedge-shaped areas of arterial enhancement in the right liver laterally(series 16, images 204-11) are consistent with perfusion changes. Small volume perihepatic fluid, predominantly along the medial aspectliver (image 25) is new since prior CT abdomen and pelvis dated 4and could be related to interval surgery versus sequela of transhepaticpercutaneous biliary drain placement. The portal veins and hepatic veins are patent. The left-sided biliarysystem appears slightly more prominent, possibly due to drain placement.The right-sided biliary system is not dilated in spite of recent drainremoval. Spleen: The spleen size is within normal limits.. No focal splenicparenchymal lesions are identified. Pancreas: The pancreatic head shows mild edema possibly secondary torecent stent placement. However, no peripancreatic fat stranding is seen.No pancreatic ductal dilatation is seen. Small scattered cysts are seen inthe pancreatic body and tail (series 12, image 25) measuring up to 0.8cm. Kidneys: Both kidneys demonstrate few scattered including the. Nohydronephrosis or hydroureter or suspicious focal renal masses are seen. Adrenals: Both adrenal glands are unremarkable. GI Tract: No abnormally dilated small bowel or large bowel loops are seen. Bladder: The urinary bladder is well-distended and is unremarkable. Reproductive Organs: The prostate is unremarkable. Peritoneum/Retroperitoneum: No free intraperitoneal fluid is seen.. Lymph Nodes: No suspicious or abdominal lymphadenopathy. Mildly prominentportacaval node is likely reactive. Vessels: The abdominal aorta and IVC demonstrate normal course andcaliber. Musculoskeletal: No suspicious osseous lesions are identified.Postsurgical changes of median sternotomy are incompletely imaged on thisexam. IMPRESSION: Impression: 1. The primary tumor within the common bile duct is not well delineatedsecondary to metallic stent placement. Within the limits, there ispersistent soft tissue thickening around the common bile duct at thehepatic hilum that is closely abutting the right hepatic artery and themain portal vein with remains concerning for tumor infiltration. 2. The previously seen left internal biliary drain and percutaneous rightinternal/external biliary drains have been removed since 01/07/2024 and ametallic stent has been placed in the common bile duct and left hepaticduct. No intrahepatic biliary ductal dilatation. 3. A new 1 cm ring-enhancing lesion in the right liver dome isindeterminate and could represent either sequela of cholangitis or a smallmetastasis. This should be closely monitored on follow-up imaging. 4. No suspicious intra-abdominal lymphadenopathy. ACTIONABLE ITEMS/RECOMMENDATIONS*: See impression. Marbella GRAJEDA IMLaurence MRI ORDERABLES * CT Chest without Contrast (01/07/2024 4:49 PM [facility]) Anatomical Region Laterality Modality Chest Computed Tomogra phy 01/08/2024 7:15 AM [facility] Impressions 01/08/2024 7:30 AM [facility] Calcified and noncalcified pulmonary nodules may be sequela of granulomatous disease. Follow-up to ensure stability exclude metastatic disease can be performed. Bilateral peripheral lower lung reticular opacities concerning for scarring/fibrosis. Additional opacities in the right lower lobe most likely due to atelectasis or scarring and clinical correlation and follow-up is recommended. ACTIONABLE ITEMS/RECOMMENDATIONS*: See impression. Narrative 01/08/2024 7:30 AM [facility] FULL RESULT: Examination: CT CHEST WO CONTRAST on 01/07/2024 4:49 PM. Clinical History: Cholangiocarcinoma of biliary tract, NOS Indication: Cancer staging or restaging Comparison: None Technique: CT of the chest is performed without intravenous contrast. Findings: Lungs/Airways/Pleura: Central airways are patent. No pleural effusions. No sign of a pneumothorax. Bilateral irregular peripheral opacities predominating over the lower lungs some in the nondependent position concerning for scarring/fibrosis though there may be a component of atelectasis. Nonperipheral band opacities in the right lower lobe most likely due to atelectasis or scarring and follow-up can be performed. Calcified and noncalcified pulmonary nodules noted bilaterally in the lungs up to 3 mm in diameter and may be sequela of granulomatous disease, annotated on series 7. Follow-up to ensure stability to exclude metastatic foci can be performed. Examples noncalcified nodules include the left upper lobe image 81, and right upper lobe image 54, and middle lobe image 79. Neck/Mediastinum/Nodes/Heart: The thyroid gland appears unremarkable. No enlarged supraclavicular, or axillary nodes. No enlarged mediastinal, or hilar nodes. No esophageal wall thickening. Cardiac chambers are not enlarged. No sign of a pericardial effusion. Moderate coronary artery calcification. Surgical changes compatible coronary artery bypass graft. Upper abdomen: There is a catheter that appears to lie within the biliary tree and there is gas in the biliary system. Clips are present in the gallbladder fossa. Correlation dedicated imaging the abdomen is recommended. The spleen is not enlarged. Mild adrenal gland thickening probably due to hyperplasia. Exophytic hypodense lesions involving the kidneys likely cysts there is a hyperdense lesion involving the right kidney, most likely due to a hemorrhagic cyst 7 mm in diameter, image 158. The kidneys are incompletely imaged. Bones/Soft Tissues: Degenerative changes of the spine. No aggressive osseous lesions. Sternotomy wires. Procedure Note Tutu Correa MD - 01/08/2024 FULL RESULT: Examination: CT CHEST WO CONTRAST on 01/07/2024 4:49 PM. Clinical History: Cholangiocarcinoma of biliary tract, NOS Indication: Cancer staging or restaging Comparison: None Technique: CT of the chest is performed without intravenous contrast. Findings: Lungs/Airways/Pleura: Central airways are patent. No pleural effusions. No sign of a pneumothorax. Bilateral irregular peripheral opacities predominating over the lowerlungs some in the nondependent position concerning for scarring/fibrosisthough there may be a component of atelectasis. Nonperipheral band opacities in the right lower lobe most likely due toatelectasis or scarring and follow-up can be performed. Calcified and noncalcified pulmonary nodules noted bilaterally in thelungs up to 3 mm in diameter and may be sequela of granulomatous disease,annotated on series 7. Follow-up to ensure stability to exclude metastaticfoci can be performed. Examples noncalcified nodules include the leftupper lobe image 81, and right upper lobe image 54, and middle lobe image79. Neck/Mediastinum/Nodes/Heart: The thyroid gland appears unremarkable. No enlarged supraclavicular, or axillary nodes. No enlarged mediastinal,or hilar nodes. No esophageal wall thickening. Cardiac chambers are not enlarged. No signof a pericardial effusion. Moderate coronary artery calcification.Surgical changes compatible coronary artery bypass graft. Upper abdomen: There is a catheter that appears to lie within the biliarytree and there is gas in the biliary system. Clips are present in thegallbladder fossa. Correlation dedicated imaging the abdomen isrecommended. The spleen is not enlarged. Mild adrenal gland thickening probably due tohyperplasia. Exophytic hypodense lesions involving the kidneys likelycysts there is a hyperdense lesion involving the right kidney, most likelydue to a hemorrhagic cyst 7 mm in diameter, image 158. The kidneys areincompletely imaged. Bones/Soft Tissues: Degenerative changes of the spine. No aggressiveosseous lesions. Sternotomy wires. IMPRESSION: Calcified and noncalcified pulmonary nodules may be sequela ofgranulomatous disease. Follow-up to ensure stability exclude metastaticdisease can be performed. Bilateral peripheral lower lung reticular opacities concerning forscarring/fibrosis. Additional opacities in the right lower lobe mostlikely due to atelectasis or scarring and clinical correlation andfollow-up is recommended. ACTIONABLE ITEMS/RECOMMENDATIONS*: See impression. Marbella GRAJEDA IM CT ORDERABLES * (ABNORMAL) POC Creatinine (01/07/2024 3:57 PM [facility]) POC Creatinine 1.9(H) 0.6 - 1.3 mg/dL 01/07/2024 4:00 PM [facility] Comment:Medications, especia lly hydroxyurea or supplements, such as ascorbate, can interfere with test results causing a falsely and significantly higher result than expected. If a problem is suspected with a patient's result, a sample should be sent to the laboratory for confirmatory testing. POC eGFR 35(L) >=60 mL/min/1.7 3 sq. m 01/07/2024 4:00 PM [facility] Comment: The eGFRcr is calculated with the 2020 CKD-EPI creatinine equation using creatinine, patient's age, and sex for adults 18 years of age and older. Other factors, especially muscle mass, may affect accuracy and need to be considered. According to the Kidney Disease: Improving Global Outcomes (KDIGO) CKD Work Group 2012 Clinical Practice Guideline, chronic kidney disease (CKD) is defined as the abnormalities of kidney structure or function, present for more than 3 months, with implications for health. CKD should be classified by cause, GFR category, and albuminuria category. KDIGO guidelines provide the following GFR categories. Stage / Description / GFR mL/min/1.73 m2: G1* / Normal or high / >= 90 G2* / Mildly decreased / 60-89 G3a / Mildly to moderately decreased / 45-59 G3b / Moderately to severely decreased / 30-44 G4 / Severely decreased / 15-29 G5 / Kidney failure / <15 *In the absence of evidence of kidney damage, neither G1 nor G2 fulfill criteria for CKD. Blood 01/07/2024 3:57 PM [facility] 01/07/2024 4:00 PM [facility] - 01/07/2024 4:00 PM [facility] Method description: The i-STAT is an analyzer used for in vitro quantification of various analytes in whole blood. The device uses a single disposable cartridge which contains microfabricated sensors, a calibration solution, fluidics system, and a waste chamber. Each test cartridge contains chemically sensitive biosensors on a silicon chip that are configured to perform specific tests. The microfabricated sensors measure analyte concentration by an electrochemical assay. Dashawn Sutherland MD POCT ORDERABLES - DE VICE TRISHA ASHRAF [facility] [address] [facility], [facility] [address] [place] [address] * OSI Interventional (12/19/2023 11:58 PM [facility]) Only the most recent of2 resultswithin the time period is included. Narrative Systemgenerated, Documentation - 01/09/2024 11:58 PM [facility] Study acquired at another institution. For comparison only. No MD Navarrete originated interpretation requested or available. Dashawn Sutherland MD IMG OUTSIDE IMAGE OR DERABLES * OSI CT Chest (12/09/2023 11:57 PM [facility]) Narrative Systemgenerated, Documentation - 01/09/2024 11:57 PM [facility] Study acquired at another institution. For comparison only. No MD Navarrete originated interpretation requested or available. Dashawn Sutherland MD IMG OUTSIDE IMAGE OR DERABLES * OSI CT Abdomen and Pelvis (12/09/2023 11:57 PM [facility]) Narrative Systemgenerated, Documentation - 01/09/2024 11:57 PM [facility] Study acquired at another institution. For comparison only. No MD Navarrete originated interpretation requested or available. Zishuo Philip Hu MD IMG OUTSIDE IMAGE OR DERABLES * Pathology Outside Interpretation (12/09/2023) Only the most recent of2 resultswithin the time period is included. Materials Received Accession#, Stained, Block, Unstained Collected Received A. [id number], 4 SS, 0 BLOCKS, 0 USS 12/09/2023 01/14/2024 01/15/2024 11:40 AM [facility] Diagnosis Received 4 slides ([id number]) designated common bile duct, brushing: Rare atypical cell clusters 01/15/2024 11:40 AM [facility] Comment Scant cellularity precludes a more definitive characterization. See also the [facility] review ([id number]) of the concurrent biopsy. 01/15/2024 11:40 AM [facility] Disclaimer "Some tests reported here may have been developed and performance characteristics determined by [facility]. These tests have not been specifically cleared or approved by the U.S. Food and Drug Administration. 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
--- NOTE | 2024-03-09 21:51 | RAD REPORT ---
EXAM DESCRIPTION: Ashlyn Single View03/09/2024 9:41 pm CLINICAL HISTORY: Chest pain COMPARISON: January 2024 FINDINGS: The lungs appear clear of acute infiltrate. The heart is borderline enlarged. Postsurgica l changes involve chest. Central venous line with its tip in proximal SVC IMPRESSION: No acute abnormalities displayed
[2024-03-09] MEDS ORDERED: NA CHLORIDE 0.9% 1,000 ML ONE (21:54)
[2024-03-09] MEDS ORDERED: ASPIRIN 81 MG CHEWABLE TABLET ONE (21:54)
[2024-03-09 22:20] LABS: Absolute Lymphocytes (CBC) 0.4 K/uL (0.7-4.9); Absolute Monocytes 1.3 K/uL (0.1-1.3); Absolute Neutrophil 7.8 K/uL (1.8-8.0); Basophils % 0.2 % (0-1.3); Hematocrit 27.7 % (39.6-49.0); Hemoglobin 9.3 g/dL (13.6-17.9); Lymphocytes % 4.4 % (15.3-44.8); MCH 30.5 pg (27.0-35.0); MCHC 33.6 g/dL (32.0-36.0); MCV 90.7 fL (80-100); MPV 8.5 fL (7.6-11.3); Monocytes % 13.5 % (3.3-12.3); Neutrophils % 81.9 % (41.7-73.7); Nucleated Red Blood Cells % 0.1 % (0-0); Platelets 223 thou/uL (152-406); RBC Red Blood Cell Count 3.05 M/uL (4.33-5.43); Red Cell Distribution Width 15.5 % (12.1-15.2)
[2024-03-09 22:24] LABS: Albumin 2.6 g/dL (3.4-5.0); Albumin/Globulin Ratio 0.5 (1.1-1.8); Anion Gap 12.7 mEq/L (5.0-15.0); Bilirubin Direct 0.1 mg/dL (0-0.2); Bilirubin Indirect, Calculated 0.2 mg/dL (0.2-0.8); Bilirubin Total 0.3 mg/dL (0.2-1.0); Globulin 5.1 g/dL (2.3-3.5); Magnesium 1.6 mg/dL (1.6-2.4); Potassium 4.7 mEq/L (3.5-5.1); Protein, Total 7.7 g/dL (6.4-8.2); Troponin High Sensitivity 50.5 pg/mL (<58.9)
--- NOTE | 2024-03-10 02:53 | EDPHYS ---
Physician Documentation [facility] Name: Nnamdi Flores III Age: 78 yrs Sex: Male : 1945 Arrival Date: 03/09/2024 Time: 21:18 Bed 13 Private MD: ED Physician Andi Navarrete HPI: 03/09 23:16 This 78 yrs old Male presents to ER via EMS with complaints of Chest Pain. ayala 23:16 The patient or guardian reports chest pain that is located primarily in the substernal ayala area. Onset: just prior to arrival. The pain does not radiate. Associated signs and symptoms: The patient has no apparent associated signs or symptoms. The chest pain is described as aching. Modifying factors: The symptoms are alleviated by nothing. the symptoms are aggravated by nothing. Severity of pain: At its worst the pain was mild moderate in the emergency department the pain is unchanged. The patient has experienced similar episodes in the past, several times. Historical: - Allergies: 21:30 Morphine; me1 21:30 Sulfa (Sulfonamide Antibiotics); me1 - PMHx: 21:30 BPH; coronary atherosclerosis; Hypertensive disorder; Hypothyroidism; bile duct cancer me1 (Hypothyroidism); - Immunization history:: Adult Immunizations up to date. - Infectious Disease History:: Denies. - Social history:: Smoking status: Patient denies any tobacco usage or history of. - Family history:: not pertinent. ROS: 23:16 Constitutional: Negative for fever, chills, and weight loss, Eyes: Negative for injury, ayala pain, redness, and discharge, ENT: Negative for injury, pain, and discharge, Neck: Negative for injury, pain, and swelling, Respiratory: Negative for shortness of breath, cough, wheezing, and pleuritic chest pain, Abdomen/GI: Negative for abdominal pain, nausea, vomiting, diarrhea, and constipation, Back: Negative for injury and pain, : Negative for injury, bleeding, discharge, and swelling, MS/Extremity: Negative for injury and deformity, Skin: Negative for injury, rash, and discoloration, Neuro: Negative for headache, weakness, numbness, tingling, and seizure, Psych: Negative for depression, anxiety, suicide ideation, homicidal ideation, and hallucinations, Allergy/Immunology: Negative for hives, rash, and allergies, Endocrine: Negative for neck swelling, polydipsia, polyuria, polyphagia, and marked weight changes, Hematologic/Lymphatic: Negative for swollen nodes, abnormal bleeding, and unusual bruising, 23:16 Cardiovascular: Positive for chest pain, Exam: 23:16 Constitutional: This is a well developed, well nourished patient who is awake, alert, ayala and in no acute distress. Head/Face: Normocephalic, atraumatic. Eyes: Pupils equal round and reactive to light, extra-ocular motions intact. Lids and lashes normal. Conjunctiva and sclera are non-icteric and not injected. Cornea within normal limits. Periorbital areas with no swelling, redness, or edema. ENT: Nares patent. No nasal discharge, no septal abnormalities noted. Tympanic membranes are normal and external auditory canals are clear. Oropharynx with no redness, swelling, or masses, exudates, or evidence of obstruction, uvula midline. Mucous membranes moist. Neck: Trachea midline, no thyromegaly or masses palpated, and no cervical lymphadenopathy. Supple, full range of motion without nuchal rigidity, or vertebral point tenderness. No Meningismus. Chest/axilla: Normal chest wall appearance and motion. Nontender with no deformity. No lesions are appreciated. Cardiovascular: Regular rate and rhythm with a normal S1 and S2. No gallops, murmurs, or rubs. Normal PMI, no JVD. No pulse deficits. Respiratory: Lungs have equal breath sounds bilaterally, clear to auscultation and percussion. No rales, rhonchi or wheezes noted. No increased work of breathing, no retractions or nasal flaring. Back: No spinal tenderness. No costovertebral tenderness. Full range of motion. Male : Normal genitalia with no discharge or lesions. Skin: Warm, dry with normal turgor. Normal color with no rashes, no lesions, and no evidence of cellulitis. MS/ Extremity: Pulses equal, no cyanosis. Neurovascular intact. Full, normal range of motion. Neuro: Awake and alert, GCS 15, oriented to person, place, time, and situation. Cranial nerves II-XII grossly intact. Motor strength 5/5 in all extremities. Sensory grossly intact. Cerebellar exam normal. Normal gait. Psych: Awake, alert, with orientation to person, place and time. Behavior, mood, and affect are within normal limits. 23:16 Abdomen/GI: Inspection: distension, Bowel sounds: normal, Palpation: mild abdominal tenderness, in the epigastric area, right upper quadrant and left upper quadrant, 23:23 ECG was reviewed by the Attending Physician. [facility] Vital Signs: 21:25 BP 167 / 75; Pulse 96; Resp 18; Temp 98.4(O); Pulse Ox 99% on R/A; Weight 72.8 kg; [facility] Height 5 ft. 5 in. ; Pain 0/10; 22:15 BP 156 / 75; Pulse 89; Resp 20; Pulse Ox 98% on R/A; [facility] 23:00 BP 165 / 66; Pulse 87; Resp 21; Pulse Ox 99% on R/A; [facility] 03/10 00:04 BP 153 / 67; Pulse 84; Resp 18 S; Pulse Ox 97% on R/A; [facility] 01:00 BP 159 / 64; Pulse 84; Resp 22 S; Pulse Ox 96% on R/A; [facility] 02:00 BP 162 / 78; Pulse 84; Resp 14; Pulse Ox 98% on R/A; oe 03:00 BP 160 / 74; Pulse 82; Resp 20; Pulse Ox 99% on R/A; oe 04:00 BP 161 / 68; Pulse 83; Resp 18; Pulse Ox 99% on R/A; oe 05:00 BP 174 / 73; Pulse 83; Resp 22 S; Pulse Ox 98% on R/A; [facility] 03/09 21:25 Body Mass Index 26.71 (72.80 kg, 165.1 cm) [facility] 03/09 21:25 Pain Scale: Adult [facility] MDM: 03/09 21:27 Patient medically screened. [facility] 23:18 Differential diagnosis: abnormal EKG, acute myocardial infarction, acute pericarditis, ayala anxiety, chest wall pain, esophagitis, gastritis, hiatal hernia, pancreatitis, peptic ulcer disease, pericarditis, pleurisy, pneumonia, pulmonary embolus, stable angina, thoracic aortic disection, unstable angina. HEART Score: History: Slightly Suspicious (0), ECG: Non specific repolarization disturbance / LBTB / PM (1), Age: > or = 65 years (2), Risk Factors: > or = 3 Risk factors for atherosclerotic disease (2), [Hypercholesterolemia] [Hypertension] [+ Family HX] [Obesity] Troponin: < or = 1 x Normal Limit (0), Total Score = 5. The patient was given aspirin in the Emergency Department. CICI Risk Score: 1 - patient's age is greater or equal to 65 years, 1 - Three or more CAD risk factors, 1- Known CAD, 1 - ASA use in past 7 days, 1 - Recent [<24hrs] Severe Angina, TOTAL SCORE = 5. Data reviewed: vital signs, nurses notes, lab test result(s), EKG, radiologic studies, plain films. Consideration of Admission/Observation Escalation of care including admission/observation considered. I considered the following discharge prescriptions or medication management in the emergency department Medications were administered in the Emergency Department. See MAR. Independent interpretation of the following test(s) in the Emergency Department EKG: See my EKG interpretation above. Test considered but Not performed: CT: no ct abd pelvis. Historians other than the Patient: Family Member: well informed. Care significantly affected by the following chronic conditions: Hypertension, Obesity, Cancer, Chronic Kidney Disease. 03/09 21:30 Order name: Basic Metabolic Panel; Complete Time: 23:04 ayala 03/09 21:30 Order name: CBC with Diff; Complete Time: 23:04 03/09 21:30 Order name: LFT's; Complete Time: 23:04 03/09 21:30 Order name: Magnesium; Complete Time: 23:04 03/09 21:30 Order name: NT PRO-BNP; Complete Time: 23:04 03/09 21:30 Order name: PT-INR 03/09 21:30 Order name: Troponin HS; Complete Time: 23:04 03/09 21:30 Order name: Lipase; Complete Time: 23:04 ayala 03/09 23:14 Order name: Troponin High Sensitivity: repeat 1 am; Complete Time: 01:59 ayala 03/10 02:22 Order name: Ptt, Activated ayala 03/10 03:30 Order name: UR CREAT EDHI 03/10 03:30 Order name: UR SODIUM ED[facility] 03/10 03:30 Order name: CBC with Automated Diff [facility]HI 03/10 03:30 Order name: CBC with Automated Diff EDMS 03/10 03:30 Order name: Comprehensive Metabolic Panel [facility] 03/10 03:30 Order name: Comprehensive Metabolic Panel [facility] 03/10 03:30 Order name: Lipid Profile [facility] 03/10 03:30 Order name: Lipid Profile [facility] 03/10 03:30 Order name: Troponin High Sensitivity [facility] 03/10 03:30 Order name: Troponin High Sensitivity [facility] 03/10 03:30 Order name: Troponin High Sensitivity [facility] 03/10 03:30 Order name: Troponin High Sensitivity [facility] 03/09 21:30 Order name: XRAY Chest (1 view); Complete Time: 23:04 [facility] 03/09 21:30 Order name: EKG; Complete Time: 21:31 [facility] 03/10 03:30 Order name: CONS Physician Consult [facility] 03/10 03:30 Order name: CONS Physician Consult [facility] 03/09 21:30 Order name: Cardiac monitoring; Complete Time: 22:03 [facility] 03/09 21:30 Order name: EKG - Nurse/Tech; Complete Time: 21:36 [facility] 03/09 21:30 Order name: IV Saline Lock; Complete Time: 21:36 [facility] 03/09 21:30 Order name: Labs collected and sent; Complete Time: 21:36 [facility] 03/09 21:30 Order name: O2 Per Protocol; Complete Time: 21:36 [facility] 03/09 21:30 Order name: O2 Sat Monitoring; Complete Time: 21:36 ayala EC: Rate is 89 beats/min. Rhythm is regular. QRS Ed[place]on is Normal. NC interval is normal. QRS ayala interval is normal. QT interval is normal. No Q waves. T waves are Normal. No ST changes noted. Clinical impression: NSR w/ Non-specific ST/T Changes and No evidence of ischemia. Interpreted by me. Reviewed by me. Administered Medications: 22:03 Drug: Aspirin PO Chewable Tablet 81 mg PO once Route: PO; ca1 23:08 Follow up: Response: No adverse reaction me1 22:03 Drug: NS 0.9% IV 1000 ml IV at 125 ml/hr continuous Route: IV; Rate: 125 ml/hr; Site: me1 left forearm; 03/10 05:12 Follow up: Response: No adverse reaction; IV Status: Infusion continued upon admission; jw7 IV Intake: 850ml 03:52 Drug: Heparin (CO-Bolus No thrombolytic) - HEParin IVP 60 units/kg IVP once; Max 5000 jw7 units {Co-Signature: [email or web address] (Jaycee Simpson RN).} Route: IVP; Site: right antecubital; 05:11 Follow up: Response: No adverse reaction jw7 03:53 Drug: Heparin (CO Drip) 12 units/kg/[place] - ([place] [address] units, D5W IV 500 ml) IV at jw7 calculated rate Per protocol; Max initial rate 1000 units/hr {Co-Signature: [email or web address] (Jayece Simpson RN).} Route: IV; Rate: calculated rate; Site: right antecubital; 05:11 Follow up: Response: No adverse reaction; IV Status: Infusion continued upon admission; jw7 IV Intake: 75ml 04:18 Drug: Metoprolol PO 25 mg PO once Route: PO; jw7 05:11 Follow up: Response: No adverse reaction jw7 04:18 Drug: Magnesium Sulfate IVPB 1 grams IVPB once over 1 hrs Route: IVPB; Infused Over: 1 jw7 hrs; Site: left forearm; 05:11 Follow up: Response: No adverse reaction; IV Status: Infusion continued upon admission; jw7 IV Intake: 80ml Disposition Summary: 03/10/24 02:52 Hospitalization Ordered Notes: Hospitalization Status: Inpatient Admission ayala Provider: Trinity James cha Location: Telemetry/[facility]Sur (Inpatient) ayala Condition: Fair ayala Problem: new ayala Symptoms: have improved ayala Bed/Room Type: Standard ayala Room Assignment: [id number](03/10/24 03:42) Diagnosis - Angina pectoris, unspecified ayala - Epigastric abdominal tenderness - CHOLANGIOCARCINOMA ayala - Non ST elevation CO ayala - Type 2 diabetes mellitus with hyperglycemia ayala - Unspecified kidney failure ayala Discharge Instructions: - Discharge Summary Sheet ayala - Nonspecific Chest Pain, Adult ayala - Hypertension, Adult ayala - Nonspecific Chest Pain, Adult, [id number] ayala - Hypertension, Adult, [id number] ayala - How to Take Your Blood Pressure, [id number] ayala - Aspirin and Your Heart ayala - Managing Your Hypertension ayala Forms: - Medication Reconciliation Form ayala - SBAR form ayala - Leadership Thank You Letter ayala Prescriptions: - Pepcid 20 mg Oral Tablet - take 1 tablet ORAL route every 12 hours for 10 days; 20 tablet; Refills: 0, ayala Product Selection Permitted Signatures: Dispatcher [employer] Andi Amaya MD MD cha Marsh, Wendy Bharati Horn RN RN jw7 Beverley Morataya RN RN me1 Jaycee Simpson RN [email or web address] Corrections: (The following items were deleted from the chart) 03/09 21: 21:31 BASIC METABOLIC PANEL+C.LAB.BRZ ordered. EDMS EDMS 21:31 CBC+H.LAB.BRZ ordered. EDMS EDMS : 21:31 HEPATIC FUNCTION+C.LAB.BRZ ordered. EDMS EDMS : 21:31 MAGNESIUM+C.LAB.BRZ ordered. EDMS EDMS : 21:31 PROBNP+C.LAB.BRZ ordered. EDMS EDMS : 21:31 PROTIME (+INR)+COAG.LAB.BRZ ordered. EDMS EDMS : 21:31 Troponin High Sensitivity+C.LAB.BRZ ordered. EDMS EDMS : 21:31 LIPASE+C.LAB.BRZ ordered. EDMS EDMS 23:14 23:14 Troponin High Sensitivity+C.LAB.BRZ ordered. EDMS EDMS 03/10 03:42 02:52 ayala wm
--- NOTE | 2024-03-10 02:53 | ER ---
Nurse's Notes [facility] Name: Nnamdi Flores III Age: 78 yrs Sex: Male : 1945 Arrival Date: 03/09/2024 Time: 21:18 Bed 13 Private MD: Diagnosis: Angina pectoris, unspecified;Epigastric abdominal tenderness-CHOLANGIOCARCINOMA;Non ST elevation MT;Type 2 diabetes mellitus with hyperglycemia;Unspecified kidney failure Presentation: 03/09 21:25 Chief complaint: EMS states: toned out for chest pain. Midsternal, did not radiate, at me1 worst 8/10. SOB with the chest pain. Denies nausea. Reports his HR was in the 120s at the time. 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 CP had resolved and pain was 0/0 by the time EMS arrived. Coronavirus screen: Vaccine status: Patient reports receiving the 2nd dose of the covid vaccine. Ebola Screen: No symptoms or risks identified at this time. Initial Sepsis Screen: Does the patient meet any 2 criteria? No. Patient's initial sepsis screen is negative. Does the patient have a suspected source of infection? No. Patient's initial sepsis screen is negative. Risk Assessment: Do you want to hurt yourself or someone else? Patient reports no desire to harm self or others. Onset of symptoms was March 09, 2024. 21:25 Method Of Arrival: EMS: [facility] me1 21:25 Acuity: DAMION 3 me1 21:30 Care prior to arrival: Medication(s) given: Normal saline infusion, 500 mL, IV me1 initiated. 20 GA, in the left forearm. Triage Assessment: 21:30 General: Appears in no apparent distress. comfortable, well groomed, well developed, me1 well nourished, Behavior is calm, cooperative, appropriate for age. Pain: Denies pain. Complains of pain in chest Pain does not radiate. Pain at worst was 10 out of 10 on a pain scale. Quality of pain is described as pressure, Pain began suddenly, Is lasting a few minutes. EENT: No signs and/or symptoms were reported regarding the EENT system. Neuro: Level of Consciousness is awake, alert, obeys commands, Oriented to person, place, time, situation, Appropriate for age. Cardiovascular: Capillary refill < 3 seconds Patient's skin is warm and dry. Respiratory: Airway is patent Respiratory effort is even, unlabored, Respiratory pattern is regular, symmetrical. GI: Reports currently getting chemo for bile duct cancer. Rec'd chemo today. : No signs and/or symptoms were reported regarding the genitourinary system. Derm: Skin is intact, is healthy with good turgor, Skin is pink, warm \T\ dry. Musculoskeletal: No signs and/or symptoms reported regarding the musculoskeletal system. Historical: - Allergies: 21:30 Morphine; me1 21:30 Sulfa (Sulfonamide Antibiotics); me1 - PMHx: 21:30 BPH; coronary atherosclerosis; Hypertensive disorder; Hypothyroidism; bile duct cancer me1 (Hypothyroidism); - Immunization history:: Adult Immunizations up to date. - Infectious Disease History:: Denies. - Social history:: Smoking status: Patient denies any tobacco usage or history of. - Family history:: not pertinent. Screenin:34 [facility] ED Fall Risk Assessment (Adult) History of falling in the last 3 months, nj1 including since admission No falls in past 3 months (0 pts) Confusion or Disorientation No (0 pts) Intoxicated or Sedated No (0 pts) Impaired Gait No (0 pts) Mobility Assist Device Used No (0 pt) Altered Elimination No (0 pt) Score/Fall Risk Level 0 - 2 = Low Risk Maintained a safe environment, Provided non-skid footwear, Hourly rounding (assess needs \T\ fall precautionary measures) done. Abuse screen: Denies threats or abuse. Nutritional screening: No deficits noted. Tuberculosis screening: No symptoms or risk factors identified. Assessment: 21:34 General: See triage assessment. nj1 21:34 Pain: Denies pain. nj1 03/10 00:02 General: Appears in no apparent distress. comfortable, Behavior is calm, cooperative. jw7 Pain: Denies pain. Neuro: Level of Consciousness is awake, alert, obeys commands, Oriented to person, place, time, situation. Cardiovascular: Heart tones S1 S2 present Capillary refill < 3 seconds Clubbing of nail beds is absent JVD is absent Patient's skin is warm and dry. Respiratory: Airway is patent Trachea midline Respiratory effort is even, unlabored, Respiratory pattern is regular, symmetrical, Breath sounds are clear bilaterally. GI: No deficits noted. No signs and/or symptoms were reported involving the gastrointestinal system. : No deficits noted. No signs and/or symptoms were reported regarding the genitourinary system. EENT: No deficits noted. No signs and/or symptoms were reported regarding the EENT system. Derm: Skin is intact, is healthy with good turgor, Skin is dry, Skin is normal, Skin temperature is warm. Musculoskeletal: Circulation, motion, and sensation intact. Range of motion: intact in all extremities. 01:14 Reassessment: Patient appears in no apparent distress at this time. No changes from jw7 previously documented assessment. Patient and/or family updated on plan of care and expected duration. Pain level reassessed. Patient is alert, oriented x 3, equal unlabored respirations, skin warm/dry/pink. Pain: Denies pain. 02:00 Reassessment: Patient appears in no apparent distress at this time. No changes from jw7 previously documented assessment. Patient and/or family updated on plan of care and expected duration. Pain level reassessed. Patient is alert, oriented x 3, equal unlabored respirations, skin warm/dry/pink. Pain: Denies pain. 03:00 Reassessment: Patient appears in no apparent distress at this time. No changes from jw7 previously documented assessment. Patient and/or family updated on plan of care and expected duration. Pain level reassessed. Patient is alert, oriented x 3, equal unlabored respirations, skin warm/dry/pink. 04:00 General: Heparin given before PTT resulted per verbal orders from Dr. Navarrete. . jw7 04:00 Reassessment: Patient appears in no apparent distress at this time. No changes from 7 previously documented assessment. Patient and/or family updated on plan of care and expected duration. Pain level reassessed. Patient is alert, oriented x 3, equal unlabored respirations, skin warm/dry/pink. Pain: Denies pain. 05:00 Reassessment: Patient appears in no apparent distress at this time. No changes from jw7 previously documented assessment. Patient and/or family updated on plan of care and expected duration. Pain level reassessed. Patient is alert, oriented x 3, equal unlabored respirations, skin warm/dry/pink. Vital Signs: 03/09 21:25 BP 167 / 75; Pulse 96; Resp 18; Temp 98.4(O); Pulse Ox 99% on R/A; Weight 72.8 kg; jw7 Height 5 ft. 5 in. ; Pain 0/10; 22:15 BP 156 / 75; Pulse 89; Resp 20; Pulse Ox 98% on R/A; me1 23:00 BP 165 / 66; Pulse 87; Resp 21; Pulse Ox 99% on R/A; nj1 03/10 00:04 BP 153 / 67; Pulse 84; Resp 18 S; Pulse Ox 97% on R/A; jw7 01:00 BP 159 / 64; Pulse 84; Resp 22 S; Pulse Ox 96% on R/A; jw7 02:00 BP 162 / 78; Pulse 84; Resp 14; Pulse Ox 98% on R/A; oe 03:00 BP 160 / 74; Pulse 82; Resp 20; Pulse Ox 99% on R/A; oe 04:00 BP 161 / 68; Pulse 83; Resp 18; Pulse Ox 99% on R/A; oe 05:00 BP 174 / 73; Pulse 83; Resp 22 S; Pulse Ox 98% on R/A; [facility] 03/09 21:25 Body Mass Index 26.71 (72.80 kg, 165.1 cm) [facility] 03/09 21:25 Pain Scale: Adult 7 ED Course: 03/09 21:25 Patient arrived in ED. me1 21:27 Andi Navarrete MD is Attending Physician. [facility] 21:29 Triage completed. me1 21:30 Arm band placed on Patient placed in an exam room. me1 21:34 Patient has correct armband on for positive identification. Bed in low position. Call [facility] light in reach. Side rails up X 1. Provided Education on: POC. Verbalized understanding. . Client placed on continuous cardiac and pulse oximetry monitoring. NIBP monitoring applied. playground monitor on. Pulse ox on. NIBP on. 21:34 No provider procedures requiring assistance completed. Maintain EMS IV. Dressing me1 intact. Good blood return noted. Site clean \T\ dry. Gauge \T\ site: 20g LFA. O2 via room air. 21:37 EKG done, by ED staff, reviewed by Andi Navarrete MD. Initial lab(s) drawn, by nj, sent nj1 to lab. Inserted saline lock: 22 gauge in right antecubital area, using aseptic technique. 21:43 XRAY Chest (1 view) In Process Unspecified. EDMS 21:47 EKG done, by cad technician. reviewed by Andi Navarrete MD. oe 23:07 Beverley Morataya, TORREY is Primary Nurse. [facility] 03/10 00:02 Report received from TORREY Lowery. jw7 02:07 Dr. Navarrete initiated transfer to MD Navarrete, spoke with Mariusz Lott. wm 02:[address] Orr's, spoke with answering service, stated they would page him. wm 02:50 Trinity James MD is Hospitalizing Provider. [facility] 05:10 Patient admitted, IV remains in place. jw7 Administered Medications: 03/09 22:03 Drug: Aspirin PO Chewable Tablet 81 mg PO once Route: PO; me1 23:08 Follow up: Response: No adverse reaction nj1 22:03 Drug: NS 0.9% IV 1000 ml IV at 125 ml/hr continuous Route: IV; Rate: 125 ml/hr; Site: [facility] left forearm; 03/10 05:12 Follow up: Response: No adverse reaction; IV Status: Infusion continued upon admission; jw7 IV Intake: 850ml 03:52 Drug: Heparin (MT-Bolus No thrombolytic) - HEParin IVP 60 units/kg IVP once; Max 5000 jw7 units {Co-Signature: [email or web address] (Jaycee Simpson RN).} Route: IVP; Site: right antecubital; 05:11 Follow up: Response: No adverse reaction jw7 03:53 Drug: Heparin (MT Drip) 12 units/kg/hr - ([place] [address] units, D5W IV 500 ml) IV at jw7 calculated rate Per protocol; Max initial rate 1000 units/hr {Co-Signature: [email or web address] (Jaycee Simpson RN).} Route: IV; Rate: calculated rate; Site: right antecubital; 05:11 Follow up: Response: No adverse reaction; IV Status: Infusion continued upon admission; jw7 IV Intake: 75ml 04:18 Drug: Metoprolol PO 25 mg PO once Route: PO; jw7 05:11 Follow up: Response: No adverse reaction jw7 04:18 Drug: Magnesium Sulfate IVPB 1 grams IVPB once over 1 hrs Route: IVPB; Infused Over: 1 jw7 hrs; Site: left forearm; 05:11 Follow up: Response: No adverse reaction; IV Status: Infusion continued upon admission; jw7 IV Intake: 80ml Medication: 03/09 21:34 VIS not applicable for this client. me1 Intake: 03/10 05:11 IV: 80ml; Total: 80ml. jw7 05:11 IV: 75ml; Total: 155ml. jw7 05:12 IV: 850ml; Total: 1005ml. jw7 Outcome: 02:52 Decision to Hospitalize by Provider. ayala 05:10 Admitted to Tele accompanied by tech, via wheelchair, room 410, jw7 05:10 Condition: stable 05:10 Instructed on the need for admit, Demonstrated understanding of instructions, 05:12 Patient left the ED. jw7 Signatures: Dispatcher [employer] EDMS Andi Navarrete MD MD cha Espinosa, Orlando oe Marsh, Wendy wm Waits, Jodi RN TORREY jw7 Beverley Morataya RN RN njJaycee Jenkins RN [email or web address] Corrections: (The following items were deleted from the chart) 03:34 03/09 21:25 BP 167 / 75; Pulse 96bpm; Resp 18bpm; Pulse Ox 99% RA; Temp 98.4F Oral; jw7 72.57 kg; Height 5 ft. 5 in.; BMI: 26.6; Pain 0/10, Adult; me1 03/10 04:17 03:00 BP 161 / 68; Pulse 83bpm; Resp 18bpm; Pulse Ox 99% RA; oe canelo
[2024-03-10] MEDS ORDERED: ONDANSETRON 4 MG/2 ML VIAL IV PRN (03:23)
[2024-03-10] MEDS ORDERED: ALBUTEROL 2.5 MG/3 ML NEB SOL NEB PRN ×2 (03:23→18:34)
[2024-03-10] MEDS ORDERED: MORPHINE 2 MG/ML SYR IV PRN (03:23)
--- NOTE | 2024-03-10 03:23 | P.HP ---
Certification for Inpatient With expected LOS: >2 Midnights Patient will require the following post-hospital care: None Practitioner: I am a practitioner with admitting privileges, knowledge of patient current condition, hospital course, and medical plan of care. Services: Services provided to patient in accordance with Admission requirements found in Title 42 Section 412.3 of the Code of Federal Regulations Patient History Date of Service: 03/10/24 Reason for admission: Chest pain History of Present Illness: 78-year-old male with history of HTN, DM, CAD status post two-vessel CABG in the past11 years ago, with no PCI since then, follows with Dr. Ambrosio,, with stress test last year showing no reversible ischemia, BPH, recently diagnosed cholangiocarcinoma noted post lap rosa 8 months ago, on chemo at [facility]; who presented because of a substernal to left sided chest pain since the last 4 hours. Chest pain is more of an aching and located in the substernal region, nonradiating, he rated pain at about 6 out of 10. No associated nausea, shortness of breath, palpitation, dizziness or syncope. He states chest pain is not exacerbated by ambulation. He presented to the ED because of persistent symptoms. On arrival in the ED vital signs were stable, afebrile, satting 99 on room air, troponin was elevated at 79, EKG showed normal sinus rhythm with no ST segment elevation, proBNP elevated at 2130, rest of labs were unremarkable except for creatinine of 1.94baseline of 1.1-1.4. Chest x-ray shows no acute infiltrate or pulmonary congestive changes. Chemo-Port in situ. Review of record shows patient has a history of chronic troponin elevation. Cardiology was consulted. Patient is being admitted for possible non-STEMI. Allergies morphine Allergy (Severe, Verified 01/23/24 13:18) Shortness of breath Sulfa (Sulfonamide Antibiotics) Allergy (Verified 01/23/24 13:18) Itching/Hives/Rash Home Medications: Levothyroxine Sodium 75 mcg PO DAILY 06/09/23 Losartan Potassium 100 mg PO DAILY 06/09/23 Metoprolol Tartrate 50 mg PO BID 06/09/23 Red Yeast Rice 600 mg PO DAILY 06/09/23 Aspirin [Natalio Chewable] 81 mg PO M,W,F 06/10/23 Mv-Min/Folic/K1/Lycopen/Lutein [Centrum Silver Men Tablet] 1 tab PO DAILY 06/10/23 Tamsulosin [Flomax] 0.4 mg PO BEDTIME 06/10/23 Tirzepatide [Mounjaro] 2.5 mg SQ SEECOM 06/10/23 Zinc Methionine Sulfate/Copper [Zinc Balance 15-1 mg Capsule] 1 cap PO DAILY 06/10/23 - Past Medical/Surgical History -: HTN -: CAD -: ID -: BPH -: DM 2 -: Hypothyriodism -: Cholangiocarcinoma -: CAGB -: Lap rosa - Social History Smoking Status: Never smoker Smoking therapy provided: No Alcohol use: No CD- Drugs: No Caffeine use: Yes Place of Residence: Home Review of Systems Cardiovascular: Chest Pain Physical Examination - Physical Exam General: Alert, In no apparent distress, Oriented x3 HEENT: Atraumatic, Normocephalic, PERRLA Neck: Supple, 2+ carotid pulse no bruit, JVD not distended Respiratory: Clear to auscultation bilaterally, Normal air movement Cardiovascular: No edema, Normal S1 S2, Abnormal S3, No murmurs, Other (Sternotomy scar, chemo port in situ) Gastrointestinal: Normal bowel sounds, Soft and benign, Non-distended Musculoskeletal: No clubbing, No swelling Integumentary: No rashes, No breakdown, No significant lesion Neurological: Normal gait, Normal speech, Normal strength at 5/5 x4 extr, Normal tone - Studies Laboratory Data (last 24 hrs) 03/09/24 03/09/24 21:51 21:51 WBC 9.50 Hgb 9.3 L Hct 27.7 L Plt Count 223 Sodium 140 Potassium 4.7 BUN 26 H Creatinine 1.97 H Glucose 308 H Magnesium 1.6 Total Bilirubin 0.3 AST 51 H ALT 70 H Alkaline Phosphatase 147 H Lipase 228 H Assessment and Plan - Plan Impression Non-STEMI Acute kidney injury CKD stage III Hypertension DM BPH Cholangiocarcinoma on chemo History of CAD Plan Will admit to inpatient Serial sets of cardiac enzymes Trend troponin Dose aspirin/Plavix Will place nitroglycerin patch and monitor response of chest pain with IV morphine as needed IV Protonix every 12 for now Keep n.p.o. for possible angiogram in a.m. Start low-dose Lovenox for Full code Discharge Plan: Home - Advance Directives Does patient have a Living Will: Yes Does patient have a Durable POA for Healthcare: Yes - Code Status/Comfort Care Code Status Assessed: Yes Code Status: Full Code Physician Review: Patient Assessed, Agree with Above Assessment and Plan Time Spent Managing Pts Care (In Minutes): 65
[2024-03-10] MEDS: ASPIRIN EC 81 MG TAB PO SCH (03:25)
[2024-03-10] MEDS: NITROGLYCERIN 0.2 MG/HR (5 MG) PATCH TD SCH (03:25)
[2024-03-10] MEDS: CLOPIDOGREL 75 MG TABLET PO SCH (03:25)
[2024-03-10] MEDS ORDERED: METOPROLOL TAR 25 MG TAB ONE (03:44)
[2024-03-10] MEDS ORDERED: HEPARIN 5000 UNIT/ML 1 ML VIAL ONE ×2 (03:44→16:44)
[2024-03-10] MEDS ORDERED: HEPARIN/D5W 25,000 UNIT/500 ML BAG IV ONE (03:44)
[2024-03-10] MEDS ORDERED: MAGNESIUM SULFATE 1 gm IVPB 1 GM/100 ML BAG IV ONE (03:44)
[2024-03-10 05:59] VITALS: BMI 26.6
[2024-03-10] MEDS: HYDRALAZINE HCL 20 MG/ML VIAL IV PRN (06:58)
[2024-03-10] MEDS ORDERED: HEPARIN/D5W 25,000 UNIT/500 ML BAG IV SCH ×2 (07:00→08:00)
[2024-03-10] MEDS ORDERED: LEVOTHYROXINE SOD 0.05 MG TABLET PO SCH (07:30)
[2024-03-10] MEDS: INSULIN REGULAR (HUMAN) 100 UNIT/ML SQ SCH (07:30)
[2024-03-10] MEDS: LEVOTHYROXINE SOD 0.075 MG TAB PO SCH (07:30)
[2024-03-10] MEDS: METOPROLOL TAR 50 MG TAB PO SCH (07:54)
[2024-03-10] MEDS: Oxycodone HCl/Acetaminophen 5/325 MG TAB PO PRN (07:54)
[2024-03-10] MEDS: LABETALOL 20 MG/4ML SYRINGE IV ONE (08:07)
[2024-03-10] MEDS: PNEUMOCOCCAL VACCINE 0.5 ML IMVAC ONE (08:55)
[2024-03-10] MEDS: FAMOTIDINE 20 MG/2 ML VIAL IV SCH (08:56)
[2024-03-10] MEDS ORDERED: ENOXAPARIN 60 MG/0.6 ML SQ SCH (09:00)
[2024-03-10] MEDS: NA CHLORIDE 0.9% 1,000 ML IV SCH (10:44)
--- NOTE | 2024-03-10 12:05 | P.CNS ---
Date of Consult: 03/10/24 Reason for Consult: YEIMI Requesting Physician: Trinity James Chief Complaint: Chest pain History of Present Illness: Pt is a 78-year-old male with history of chonic HTN, NIDDM, CAD status post two- vessel CABG in the remote past, follows with Dr. Orr, BPH, recently diagnosed cholangiocarcinoma noted post lap rosa 8 months ago, now on chemo at [facility] with last infusional chemo yesterday. Pt also has had renal impairment and fluctuation in renal function tests and in prior months was discovered to have a Rt prox ureter stone measuring 1.5 cm but has denied flank or back pain or renal colic or hematuria. He has had a consultation with [facility] but has not made any decisions on intervention in part because on going chemo and management of his CA pre- occupying his attention and time. Pt yesterday presented to the ER because of a substernal to left sided chest pain in the settin gof accelerated HTN. Chest pain is more of an aching sensation, mod, nonradiating. He was admitted for NSTEMI and placed on heparin gtt. Allergies morphine Allergy (Severe, Verified 01/23/24 13:18) Shortness of breath Sulfa (Sulfonamide Antibiotics) Allergy (Verified 01/23/24 13:18) Itching/Hives/Rash Home Medications: Levothyroxine Sodium 75 mcg PO DAILY 06/09/23 Losartan Potassium 100 mg PO DAILY 06/09/23 Metoprolol Tartrate 50 mg PO BID 06/09/23 Red Yeast Rice 600 mg PO DAILY 06/09/23 Aspirin [Natalio Chewable] 81 mg PO M,W,F 06/10/23 Mv-Min/Folic/K1/Lycopen/Lutein [Centrum Silver Men Tablet] 1 tab PO DAILY 06/10/23 Tamsulosin [Flomax] 0.4 mg PO BEDTIME 06/10/23 Tirzepatide [Mounjaro] 2.5 mg SQ SEECOM 06/10/23 Zinc Methionine Sulfate/Copper [Zinc Balance 15-1 mg Capsule] 1 cap PO DAILY 06/10/23 - Past Medical/Surgical History Diabetic: Yes -: HTN -: CAD -: [place] -: BPH -: DM 2 -: Hypothyriodism -: Cholangiocarcinoma -: Kidney Stones -: CAGB -: Lap rosa - Family History Father Notes: at 97 Mother Medical History: Cancer, Other (see notes) Notes: pancreatic - Social History Alcohol use: No CD- Drugs: No Caffeine use: Yes Place of Residence: Home Review of Systems General: Unremarkable Eyes: Unremarkable ENT: Unremarkable Respiratory: Unremarkable Cardiovascular: Chest Pain, As per HPI Gastrointestinal: Unremarkable Genitourinary: As per HPI Musculoskeletal: Unremarkable Integumentary: Unremarkable Neurological: Unremarkable Lymphatics: Unremarkable Physical Examination Temp Pulse Resp BP Pulse Ox 97.8 F 84 18 126/61 98 03/10/24 07:46 03/10/24 08:15 03/10/24 07:46 03/10/24 08:15 03/10/24 07:46 General: Alert, In no apparent distress, Cooperative HEENT: Atraumatic, Normocephalic, Other (LFNC present), EOMI Neck: Supple Respiratory: Clear to auscultation bilaterally, Normal air movement Cardiovascular: No edema, Regular rate/rhythm, Normal S1 S2 Gastrointestinal: Soft and benign, Non-distended, No tenderness Musculoskeletal: No swelling, No contractures Integumentary: No tenderness/swelling, No warmth Neurological: Normal speech, Normal tone, Normal affect Laboratory Data (last 24 hrs) 03/09/24 03/09/24 21:51 21:51 WBC 9.50 Hgb 9.3 L Hct 27.7 L Plt Count 223 Sodium 140 Potassium 4.7 BUN 26 H Creatinine 1.97 H Glucose 308 H Magnesium 1.6 Total Bilirubin 0.3 AST 51 H ALT 70 H Alkaline Phosphatase 147 H Lipase 228 H Conclusions/Impression: A/P) 1. 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 YEIMI not necessarily 2nd to the recent unilateral Rt sided prox ureter stone and hydro as Cr level has been within normal limits at times on lab checks in January so fluctuation in Cr levels likely due to other hemodynamic factors, ARB use and possibly even related to chemo (need to clarify which agents he is on, s/p cycle yesterday) 2. Given worsening of renal function, will need to re-assess Rt hydro, obstructing ureteral stone. Will order STAT renal u/s and involve Urology here for possible intervention as pt is interested in tackling this but has not been able to proceed with a plan yet with OP Urology. However, current NSTEMI and possible plan for LHC may complicate ability to intervene. Will review with Urology after renal u/s obtained. 3. To lower risk for JOSE LUIS, cont gentle isotonic IVF, no signs of gross volume overload or CHF currently. No pulm edema on imaging. Will also add NAC 4. Hypertensive urgency, resolved. Latest BP reported was far lower but cont nitro and monitor closely. Holding ARB home medication in light of above 5. Check UA Lucio Wells MD, FAIZAN
[2024-03-10 12:11] LABS: PT Prothrombin Time 11.5 SECONDS (9.5-12.5)
[2024-03-10] MEDS: ACETYLCYST 20% 800 MG/4 ML VIAL PO SCH (12:30)
--- NOTE | 2024-03-10 13:26 | P.PN ---
Date of Service: 03/10/24 Pt seen and examined. Pt is a 78 yo male who presents with chest pain. A/P: Non-STEMI: Troponin is 82 <- 71 <- 50.5. Will continue heparin drip, aspirin, nitroglycerin, plavix, and prn morphine. Consulted Cardiology for possible cardiac cath. Pt is NPO. Elevated BNP: BNP is 2130. Will f/u Echo. Acute kidney injury on CKD: cr is 1.97. Will avoid nephrotoxins and monitor renal function. Hypertension: Continue home meds with prn labetalol DM II: Continue accuchek, SSI and ADA diet BPH: Flomax Hx of Cholangiocarcinoma: currently on chemo. Continue to f/u with oncology in clinic. History of CAD: Continue home meds Dispo: Pending hospital course. DVT ppx: Lovenox Code: full
[2024-03-10 14:21] LABS: Specific Gravity 1.013 (1.005-1.030); Sqamous Epithelial None Seen /HPF (None Seen); Urine Bacteria None Seen /HPF (<20); Urine Bilirubin NEGATIVE (Negative); Urine Blood Negative (Negative); Urine Clarity Clear (Clear); Urine Color Light-Yellow (Yellow); Urine Culture Reflex Order NOT NEEDED; Urine Glucose NEGATIVE (Negative); Urine Ketones NEGATIVE (Negative); Urine Micro Reflex YN NO BILL MICROSCOPIC; Urine Mucus Slight /HPF (None Seen); Urine Nitrite NEGATIVE (Negative); Urine Protein 1+ (Negative); Urine RBC <5 /HPF (None Seen); Urine Urobilinogen Normal (Normal); Urine WBC <5 /HPF (<5); Urine pH 5.5 (5.0-7.0)
--- NOTE | 2024-03-10 15:33 | RAD REPORT ---
EXAM DESCRIPTION: US - Renal Ultrasound-Complete - 03/10/2024 1:56 pm CLINICAL HISTORY: YEIMI, recent Rt proximal 1.5 cm ureter stone COMPARISON: Cholangiogram dated 12/08/2023; Fluoroscopy <1 Hour dated 01/23/2024 TECHNIQUE: Sonographic grayscale and color flow images of the kidneys and bladder were obtained. FINDINGS: Both kidneys are normal in size, shape, and echotexture. The right kidney measures 10.8 cm in length. Right moderate hydronephrosis. No focal mass. 9 mm echog enic shadowing calculus at the lower pole. The left kidney measures 10.1 cm in length. No hydronephrosis, focal mass, or echogenic calculi. Inci dentally noted 1.4 cm anechoic cyst near the superior pole. 5 mm calcification along the cyst wall. 1 .3 cm parapelvic upper to midpole cyst. The urinary bladder is without gross abnormality seen. IMPRESSION: Moderate hydronephrosis. Nonobstructing 9 mm echogenic calculus at the lower right renal pole. Incidentally noted left renal anechoic cysts.
[2024-03-10 15:59] LABS: Albumin 2.6 g/dL (3.4-5.0); Anion Gap 9.8 mEq/L (5.0-15.0); Phosphorus 3.8 mg/dL (2.5-4.9); Potassium 3.8 mEq/L (3.5-5.1)
[2024-03-10] MEDS ORDERED: LIDOCAINE 1% 20 ML MDV ONE (16:43)
[2024-03-10] MEDS ORDERED: HEPA 1000U/500MLS 2,000 UNIT/1,000 ML BAG IV ONE (16:43)
[2024-03-10] MEDS ORDERED: VERAPAMIL HCL 10 MG/4 ML VIAL IV ONE (16:43)
[2024-03-10] MEDS ORDERED: TICAGRELOR 90 MG TABLET PO ONE (16:44)
[2024-03-10] MEDS ORDERED: FENTANYL CITR 100 MCG/2 ML ONE (16:44)
[2024-03-10] MEDS ORDERED: ATROPINE SULF 1 MG/10 ML SYR IV ONE (16:44)
[2024-03-10] MEDS ORDERED: MIDAZOLAM HCL 2 MG/2 ML INJ ONE ×2 (16:44→17:44)
[2024-03-10] MEDS ORDERED: HEPARIN 10,000 UNIT/10 ML VIAL IV ONE (16:45)
[2024-03-10] MEDS ORDERED: CLOPIDOGREL 75 MG TABLET ONE (16:45)
[2024-03-10] MEDS ORDERED: ASPIRIN 325 MG TAB ONE (16:46)
[2024-03-10] MEDS ORDERED: HYDRALAZINE HCL 20 MG/ML VIAL ONE (18:15)
[2024-03-10 19:16] VITALS: O2SAT 99
--- NOTE | 2024-03-10 19:49 | P.CNS ---
Date of Consult: 03/10/24 Chief Complaint: Chest pain History of Present Illness: Patient with PMH of CAD s/p CABG x2, HTN, presented with worsening chest pain, left sided, happened yesterday and again this morning, pressure in nature, radiating to his left arm, and neck associated with elevated BP, no SOB, NO syncope. Allergies morphine Allergy (Severe, Verified 01/23/24 13:18) Shortness of breath Sulfa (Sulfonamide Antibiotics) Allergy (Verified 01/23/24 13:18) Itching/Hives/Rash Home Medications: Levothyroxine Sodium 75 mcg PO DAILY 06/09/23 Losartan Potassium 100 mg PO DAILY 06/09/23 Metoprolol Tartrate 50 mg PO BID 06/09/23 Red Yeast Rice 600 mg PO DAILY 06/09/23 Aspirin [Natalio Chewable] 81 mg PO M,W,F 06/10/23 Mv-Min/Folic/K1/Lycopen/Lutein [Centrum Silver Men Tablet] 1 tab PO DAILY 06/10/23 Tamsulosin [Flomax] 0.4 mg PO BEDTIME 06/10/23 Tirzepatide [Mounjaro] 2.5 mg SQ SEECOM 06/10/23 Zinc Methionine Sulfate/Copper [Zinc Balance 15-1 mg Capsule] 1 cap PO DAILY 06/10/23 - Past Medical/Surgical History Diabetic: Yes -: HTN -: CAD -: MS -: BPH -: DM 2 -: Hypothyriodism -: Cholangiocarcinoma -: Kidney Stones -: CAGB -: Lap rosa - Family History Father Notes: at 97 Mother Medical History: Cancer, Other (see notes) Notes: pancreatic - Social History Alcohol use: No CD- Drugs: No Caffeine use: Yes Place of Residence: Home Review of Systems 10-point ROS is otherwise unremarkable Physical Examination Temp Pulse Resp BP Pulse Ox 97.8 F 108 H 18 170/81 H 98 03/10/24 18:20 03/10/24 19:04 03/10/24 19:04 03/10/24 19:04 03/10/24 16:00 General: Alert, Oriented x3 HEENT: Atraumatic Neck: Supple Respiratory: Clear to auscultation bilaterally Cardiovascular: No edema, Normal S1 S2 Gastrointestinal: Normal bowel sounds Laboratory Data (last 24 hrs) 03/10/24 03/09/2403/09/24 02:30 21:51 21:51 WBC 9.50 Hgb 9.3 L Hct 27.7 L Plt Count 223 PT 11.5 INR 1.00 APTT 29.0 Sodium Potassium BUN Creatinine Glucose Magnesium Total Bilirubin AST ALT Alkaline Phosphatase Lipase 03/09/24 21:51 WBC Hgb Hct Plt Count PT INR APTT Sodium 140 Potassium 4.7 BUN 26 H Creatinine 1.97 H Glucose 308 H Magnesium 1.6 Total Bilirubin 0.3 AST 51 H ALT 70 H Alkaline Phosphatase 147 H Lipase 228 H - Problems (1) NSTEMI (non-ST elevated myocardial infarction) Current Visit: Yes Status: Acute Plan: Patient had a coronary angiogram that shwon patent grafts but significant mid to distal RCA disease s/p PCI. Continue ASA 81 mg daily for life. 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 Continue Plavix 75 mg daily for 12 months. Lipitor 40 mg daily. (2) HTN (hypertension) Current Visit: Yes Status: Acute Plan: Patient BP is high Continue Metoprolol 50 mg po BID Continue Losartan 100 mg daily D/C midodrine. (3) Chronic diastolic heart failure Current Visit: Yes Status: Acute Plan: Patient LVEDP is 19 mmHg, most likely secondary to chronic DD. get Echo will hold on diuresis due to YEIMI and recent contrast use and also patient is euvolemic on exam. better BP control.
[2024-03-10] MEDS: MIDODRINE HCL 5 MG TABLET PO SCH (21:24)
--- NOTE | 2024-03-11 01:59 | OP ---
Date of Procedure: 03/10/2024 Surgeon: César Morales Procedures Performed: 1.Left heart catheterization. 2.Selective coronary angiogram and aortic bypass angiogram. 3.Percutaneous coronary intervention of the mid to distal right coronary artery with Synergy drug-el uting stent. Indication For Procedure: Non-ST elevation myocardial infarction. Complications: None. Estimated Blood Loss: Less than 50 cc. Sedation Time: 51 minutes. Access: Right common femoral artery, closed by Angio-Seal. Description Of Procedure: After risks, benefits, and alternatives were explained to the patient, pat ient agreed and signed informed consent. The patient was brought back to the r and d lab technician and prepped an d draped in sterile fashion. Right common femoral artery access was obtained using ultrasound-guided micropuncture technique. 6-Georgian sheath was inserted. A JL4 catheter was advanced over a J-wire f or the left coronary system angiogram and then that was exchanged for a JR4 catheter for the right co ronary angiogram. The same catheter was used to cross the LV cavity and LVEDP was obtained. Pullbac k with no gradient. A JR4 catheter was used for selective angiogram of the SVG to the RCA graft and then, which was used to engage the left subclavian artery that was later exchanged with a J-wire for an JACKIE catheter that was used for the selective angiogram of the JACKIE to the diagonal branch. Next, t he patient was anticoagulated with heparin. A CT was therapeutic. We advanced an AL1 guide to the R CA. Runthrough wire through the lesions. Pre-dilated lesions with two 5 mm NC balloon. Next, Syner gy 2.5 x 38 mm drug-eluting stent was placed across the lesion and that was overlapped with another S ynergy 3.0 x 16 mm drug-eluting stent. Final angiogram shows CICI-3 flow, no dissections with good s tent expansion. Guide was removed over a J-wire and right common femoral artery sheath was removed a nd access was closed with an Angio-Seal. The patient was moved back to recovery in stable condition. Findings: 1.Left main is normal. 2.LAD mid occluded gave large diagonal prior to that. 3.Left circ/OM1, OM2 mild LI. 4.RCA is very tortuous, proximal to mid heavy calcified with 30% disease. The mid to distal very to rtuous 70% to 90% disease that continues as RPLV, PCI done with Synergy drug-eluting stents, 3.0 x 16 overlapped with 2.5 x 38 mm drug-eluting stents. 5.SVG to RPDA is patent. 6.MAHER to diagonal with backflow to LAD is patent. Assessment: 1.Significant mid to distal right coronary artery into right posterolateral ventricular branch disea se. Percutaneous coronary intervention with Synergy 3.0 x 16 overlapped with 2.5 x 38 mm drug-elutin g stents. 2.Mid left anterior descending occlusions with patent left internal mammary artery to left anterior descending. 3.Ostial right posterior descending artery occlusions with patent saphenous vein grafts to right pos terior descending artery. Plan: 1.Plan will be aspirin 81 mg daily for life, Plavix 300 mg was given in the r and d lab technician. 2.Continue Plavix 75 mg daily for 12 months. 3.Continue aggressive medical treatment for CAD. TANYA/STEVE Voice ID: [id number] Report ID: [id number]
[2024-03-11 09:01] LABS: Albumin 2.5 g/dL (3.4-5.0); Albumin/Globulin Ratio 0.5 (1.1-1.8); Bilirubin Total 0.3 mg/dL (0.2-1.0); Globulin 4.7 g/dL (2.3-3.5); Protein, Total 7.2 g/dL (6.4-8.2)
[2024-03-11 09:03] LABS: Absolute Eosinophils 0.1 K/uL (0-0.5); Absolute Lymphocytes (CBC) 0.6 K/uL (0.7-4.9); Absolute Monocytes 0.6 K/uL (0.1-1.3); Absolute Neutrophil 2.6 K/uL (1.8-8.0); Basophils % 0.5 % (0-1.3); Eosinophils % 3.3 % (0-4.4); Hematocrit 24.8 % (39.6-49.0); Hemoglobin 8.4 g/dL (13.6-17.9); Lymphocytes % 16.2 % (15.3-44.8); MCH 30.8 pg (27.0-35.0); MCV 90.6 fL (80-100); MPV 8.5 fL (7.6-11.3); Monocytes % 15.4 % (3.3-12.3); Neutrophils % 64.6 % (41.7-73.7); Nucleated Red Blood Cells % 0.1 % (0-0); Platelets 228 thou/uL (152-406); RBC Red Blood Cell Count 2.74 M/uL (4.33-5.43); Red Cell Distribution Width 15.5 % (12.1-15.2)
--- NOTE | 2024-03-11 10:04 | RAD REPORT ---
EXAM DESCRIPTION: CT - Abdomen Pelvis Wo Contrast - 03/11/2024 9:21 am CLINICAL HISTORY: Abdominal pain. right hydro - assess for obstructing ureterolithia COMPARISON: Abdomen Pelvis W Contrast dated 12/08/2023; Renal Ultrasound-Complete dated 03/10/2024 TECHNIQUE: CT imaging of the abdomen and pelvis was performed without contrast. Solid organ, bowel a nd vascular assessment is limited due to lack of IV and oral contrast. All CT scans are performed using dose optimization technique as appropriate and may include automated exposure control or mA/KV adjustment according to patient size. FINDINGS: Emphysematous lung bases. Biliary stent is in place. Pneumobilia is present in the liver. Cholecystectomy. The spleen, pancreas , adrenal glands are within normal limits. Small caliceal punctate calculi are present left kidney largest measuring 4-5 mm. Moderate hydronephrosis is seen affecting the right kidney. There is a large stone in the proximal ri ght ureter measuring 11 mm. There is an additional 9 mm stone inferior calyx right kidney. No bowel obstruction, free air, free fluid or abscess. Moderate stool is present throughout the colon . The appendix is normal. Contrast is present in the urinary bladder with mild thickening. Small fat containing right inguinal hernia. Mild lower lumbar spondylosis. IMPRESSION: 11 mm stone is present proximal right ureter resulting in moderate right hydronephrosis. Additional bilateral renal calculi as detailed. A limited non-contrast examination was performed as detailed.
--- NOTE | 2024-03-11 11:58 | P.PN ---
(S) Pt s/p [facility], report reviewed, Rt fabian sore but not bleeding or complications noted, discussed renal function tests and CT and u/s findings General: Alert, In no apparent distress, Cooperative HEENT: Atraumatic, Normocephalic, Other (LFNC off), EOMI Neck: Supple Respiratory: Clear to auscultation bilaterally, Normal air movement Cardiovascular: No edema, Regular rate/rhythm, Normal S1 S2 Gastrointestinal: Soft and benign, Non-distended, No tenderness Musculoskeletal: No swelling, No contractures, Rt groin site soft, NT Integumentary: No tenderness/swelling, No warmth Neurological: Normal speech, Normal tone, Normal affect Conclusions/Impression: A/P) 1. 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 YEIMI not necessarily 2nd to the recent unilateral Rt sided prox ureter stone and hydro as Cr level has been within normal limits at times on lab checks in January so fluctuation in Cr levels likely due to other hemodynamic factors, ARB use and possibly even related to chemo (need to clarify which agents he is on, s/p cycle yesterday). Cr level lower post hydration, no JOSE LUIS thus far. IVF stopped. 2. Given worsening of renal function on admission, did re-assess Rt hydro, obstructing ureteral stone which has been present it appears since Nov. Renal u/s and CT findings noted, did consult Urology here for possible intervention as pt is interested in tackling this but has not been able to proceed with a plan yet with OP Urology. However, given recent NSTEMI and PCI and now DAPT use, unclear if there will need to be a delay in interventions such as [facility]. 3. Hypertensive urgency, resolved. Agree with more intensive BP control as OP. Not clear why Midodrine was ordered, did d/c. Resume ARB on discharge, Losartan 100 mg qd can be used, may add HCTZ 25 mg qd as OP 4. UA not too remarkable, no bacteriuria Lucio Wells MD, EMANUEL
--- NOTE | 2024-03-11 12:37 | P.PN ---
Subjective Date of Service: 03/11/24 Chief Complaint: Chest pain Pt is resting comfortably in bed. he had cardiac cath yesterday with placement of stent in RCA. Pt is getting plavix and aspirin. Waiting on Urology to seept for the right hydronephrosis. No other complaints. Review of Systems General: Unremarkable Eyes: Unremarkable ENT: Unremarkable Respiratory: Unremarkable Cardiovascular: Unremarkable Gastrointestinal: Unremarkable Genitourinary: Unremarkable Musculoskeletal: Unremarkable Neurological: Unremarkable Lymphatics: Unremarkable Physical Examination - Vital Signs Temperature: 99.3 F Blood Pressure: 149/69 Pulse: 96 Respirations: 18 Pulse Ox (%): 95 - Physical Exam General: Alert, In no apparent distress, Oriented x3 HEENT: Atraumatic, Normocephalic, PERRLA Neck: Supple, 2+ carotid pulse no bruit Respiratory: Clear to auscultation bilaterally, Normal air movement Cardiovascular: No edema, Normal pulses, Regular rate/rhythm, Normal S1 S2 Capillary refill: <2 Seconds Gastrointestinal: Normal bowel sounds, Soft and benign, Non-distended Musculoskeletal: No clubbing, No swelling Integumentary: No rashes, No breakdown Neurological: Normal gait, Normal speech, Normal strength at 5/5 x4 extr Lymphatics: No axilla or inguinal lymphadenopathy Assessment And Plan - Plan Non-STEMI: s/p cardiac cath. Placed stent in RCA. Continue plavix, aspirin, andprn morphine. Troponin is 297<- 157<-82 <- 71 <- 50.5. Right hydronephrosis: Per CT abd and renal ultrasound. It has a 11mm stone. Consulted Urology. Cr is 1.67 <- 1.97. Pt has not been able to see a Urologist on outpt. Elevated BNP: BNP is 2130. Will f/u Echo. Acute kidney injury on CKD: cr is 1.67<- 1.97. Will avoid nephrotoxins and monitor renal function. Nephrology is following. Hypertension: Continue home meds with prn labetalol DM II: Continue accuchek, SSI and ADA diet Hx of Cholangiocarcinoma: currently on chemo. Continue to f/u with oncology in clinic. History of CAD: Continue home meds Dispo: Pending hospital course. DVT ppx: Lovenox Code: full Physician Review: Patient Assessed, Agree with Above Assessment and Plan
--- NOTE | 2024-03-11 14:34 | P.CNS ---
Date of Consult: 03/11/24 Reason for Consult: right hydronephrosis Requesting Physician: Lucio Wells Chief Complaint: Chest pain History of Present Illness: 78-year-old gentleman with hypertension, hypothyroidism, DM 2, CAD status post CABG x 2 completed 11 years ago with recent diagnosis of cholangiocarcinoma with biliary obstruction status post laparoscopic cholecystectomy 8 months ago and biliary stent more recently placed, now on gemcitabine oxaliplatin and Durvalumab chemo and immunotherapy, presents admitted with chest pain and NSTEMI requiring urgent PCI with stent this morning, 03/11/2024, now on high-dose clopidogrel plus aspirin with acute kidney injury on CKD potentially/partially secondary to right hydronephrosis due to an obstructing 11 mm right proximal ureteral calculus in the setting of bilateral nephrolithiasis. The patient describes having had some right lower quadrant pain that radiated into the flank about 2 months ago that resolved. He was made aware of the presence of the obstructing stone back in November and evaluation of his cholangiocarcinoma at [facility], but he never saw the actual urologist and was recommended by a nurse practitioner to have a percutaneous nephrostomy tube. He refused a percutaneous nephrostomy tube because of having had a poor prior experience with the biliary tube, and they suggest he was told ureteral stents were a much higher risk of infection. As a result, he has had a degree of obstruction for the last 4 months at least. He has no identifiable flank pain at this point. 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 Morphine caused hypotension Examination: Well-appearing, well-developed, well-nourished, no acute distress Alert, awake, oriented x 3 No dyspnea or sign of respiratory distress Comfortable and well-appearing lying in hospital bed 03/09/2024 WBC 9.5, hemoglobin 9.3, platelets 223, INR 1.0, creatinine 1.94 03/10/2024 creatinine 1.69, troponin 79, proBNP [address] of the abdomen and pelvis without contrast and reviewed the images in detail. 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 -I counseled the patient and his on the potential that the stone, being present for over 4 months at this point, may be impacted and resulting in high- grade obstruction. I explained this may prohibit ability to place a ureteral stent. We also discussed that since he recently underwent PCI and is on dual antiplatelet therapy, he would not be a candidate immediately for a percutaneous nephrostomy tube. 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 -I described the procedure in detail explaining the role for cystoscopy with right retrograde pyelography and stent placement. I explained the stent is a foreign body which must be removed, and typically we would do so within 6 months to prevent complications like infection and encrustation. We also discussed that it is unlikely the cardiologists would allow any operative anesthetic event requiring holding of the dual antiplatelet therapy given the presence of the drug-eluting stents for at least 6 months minimum. As a result, we are unsuccessful at placing the stent and he has a percutaneous nephrostomy tube placed, he would likely have it in place and need to maintain it for at least 6 months. -He agreed and will be scheduled accordingly once his adequate NPO time has elapsed, for us to perform cystoscopy with right retrograde pyelography and attempted right ureteral stent placement. Allergies morphine Allergy (Severe, Verified 01/23/24 13:18) Shortness of breath Sulfa (Sulfonamide Antibiotics) Allergy (Verified 01/23/24 13:18) Itching/Hives/Rash Home medications list reviewed: Yes Home Medications: Levothyroxine Sodium 75 mcg PO DAILY 06/09/23 Losartan Potassium 50 mg PO DAILY 06/09/23 Metoprolol Tartrate 50 mg PO BID 06/09/23 Tamsulosin [Flomax] 0.4 mg PO BEDTIME 06/10/23 Glimepiride 4 mg PO BID 03/11/24 Latanoprost Ophth [Xalatan 0.005%*] 1 drop OP BEDTIME 03/11/24 Simvastatin [Zocor] 40 mg PO BEDTIME 03/11/24 - Past Medical/Surgical History Diabetic: Yes -: HTN -: CAD -: GA -: BPH -: DM 2 -: Hypothyriodism -: Cholangiocarcinoma -: Kidney Stones -: CAGB -: Lap rosa - Family History Father Notes: at 97 Mother Medical History: Cancer, Other (see notes) Notes: pancreatic - Social History Alcohol use: No CD- Drugs: No Caffeine use: Yes Place of Residence: Home Physical Examination Temp Pulse Resp BP Pulse Ox 99.3 F 96 H 18 149/69 H 95 03/11/24 12:44 03/11/24 12:44 03/11/24 12:44 03/11/24 12:44 03/11/24 12:44 - Problems (1) Ureterolithiasis Current Visit: Yes Status: Acute (2) Hydronephrosis, right Current Visit: Yes Status: Acute (3) Acute kidney injury superimposed on CKD Current Visit: Yes Status: Acute (4) NSTEMI (non-ST elevated myocardial infarction) Current Visit: Yes Status: Acute Conclusions/Impression: see A&P in HPI Critical Care: No Time Spent Managing Pts care (In Minutes): 75
--- NOTE | 2024-03-11 14:43 | P.PN ---
Subjective Date of Service: 03/11/24 Chief Complaint: Chest pain Subjective: No new changes Review of Systems 10-point ROS is otherwise unremarkable Physical Examination - Vital Signs Temperature: 99.3 F Blood Pressure: 149/69 Pulse: 96 Respirations: 18 Pulse Ox (%): 95 - Physical Exam General: Alert, Oriented x3 HEENT: Atraumatic Neck: Supple Respiratory: Clear to auscultation bilaterally Cardiovascular: No edema, Normal S1 S2 Gastrointestinal: Normal bowel sounds Assessment And Plan - Current Problems (Diagnosis) (1) NSTEMI (non-ST elevated myocardial infarction) Current Visit: Yes Status: Acute Plan: Patient had a coronary angiogram that shwon patent grafts but significant mid to distal RCA disease s/p PCI. Continue ASA 81 mg daily for life. 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 Continue Plavix 75 mg daily for 12 months. Lipitor 40 mg daily. (2) HTN (hypertension) Current Visit: Yes Status: Acute Plan: Patient BP is better Continue Metoprolol 50 mg po BID Continue Losartan 100 mg daily (3) Chronic diastolic heart failure Current Visit: Yes Status: Acute Plan: Patient LVEDP is 19 mmHg, most likely secondary to chronic DD. get Echo will hold on diuresis due to YEIMI and recent contrast use and also patient is euvolemic on exam. better BP control. Physician Review: Patient Assessed, Agree with Above Assessment and Plan
[2024-03-11] MEDS: NA CHLORIDE 0.9% 1,000 ML ONE (14:59)
[2024-03-11] MEDS ORDERED: FENTANYL CITR 100 MCG/2 ML ONE (16:10)
[2024-03-11] MEDS ORDERED: propofoL 200 MG/20 ML VIAL IV ONE (16:10)
[2024-03-11] MEDS: CEFAZOLIN SODIUM 2 GM/VIAL ONE (16:30)
[2024-03-11] MEDS: LIDOCAINE JELLY 2% 5 ML SYRINGE TOP ONE (16:35)
--- NOTE | 2024-03-11 16:46 | EKG ---
Test Date: 2024-03-10 Test Time: 07:44:29 Bracelet Maker Novelty: PHIL MEASUREMENT RESULTS: Intervals: Rate: 120 MS: 156 QRSD: 90 QT: 334 QTc: 472 [place]: P: 66 MS: 156 QRS: -55 T: 231 INTERPRETIVE STATEMENTS: Sinus tachycardia with occasional premature ventricular complexes and fusion complexes Left axis deviation Anteroseptal infarct, age undetermined Marked ST abnormality, possible inferolateral subendocardial injury Abnormal ECG Compared to ECG 03/09/2024 21:33:07 Fusion complex(es) now present Ventricular premature complex(es) now present Left-axis deviation now present ST (T wave) deviation now present Sinus rhythm no longer present Sinus arrhythmia no longer present Myocardial infarct finding still present Electronically Signed On 03-11-24 16:42:18 CDT by Nelson Orr
--- NOTE | 2024-03-11 16:47 | EKG ---
Test Date: 2024-03-09 Test Time: 21:33:07 Lopper: VERNON MEASUREMENT RESULTS: Intervals: Rate: 89 [place]: 156 QRSD: 90 QT: 378 QTc: 459 [place]: P: 26 [place]: 156 QRS: -22 T: 16 INTERPRETIVE STATEMENTS: Sinus rhythm with marked sinus arrhythmia Anterior infarct, age undetermined Abnormal ECG Compared to ECG 01/23/2024 13:19:41 Atrial premature complex(es) no longer present Left-axis deviation no longer present T-wave abnormality no longer present Possible ischemia no longer present Myocardial infarct finding still present Electronically Signed On 03-11-24 16:42:34 CDT by Nelson Orr
--- NOTE | 2024-03-11 17:06 | P.OP ---
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 Procedure note: The patient was consented on the inpatient unit prior to being transferred to the preoperative holding area before being transferred to the operative suite where sedation was provided. He was placed in the lithotomy position, padded and secured to the table appropriately, and his genitalia was prepped with Hibiclens before being draped in standard fashion. Lidocaine Uro-Jet was provided for local anesthesia. 22 Indian rigid cystoscope was placed via the urethra into his bladder with ease. The bladder was decompressed of fluid and urine and surveyed. No papillary mucosal lesions, foreign bodies or stones were noted throughout. There was some neovascularization within the region of the trigone and around the right ureteral orifice, consistent with his prior radiation treatment. The right ureteral orifice was mildly stenotic, and I required the tip of the sensor wire navigated with some Shana in order to gain access into the ureteral orifice. Over the sensor wire, I was able to pass the 5 Indian ureteral access catheter dilating the ureteral orifice. I then performed a retrograde pyelogram. Right retrograde pyelography: Using a 70: 30 mixture of Omnipaque and saline, contrast was injected via the lumen of the 5 Indian ureteral access catheter and did propagate up the distal into the mid and proximal ureter where it surpassed a dense calculus in the proximal ureter before entering a dilated renal pelvis. Because the obstruction was indeed not high-grade, I then utilized a sensor wire passed via the 5 Indian ureteral access catheter and the wire did navigate beyond the point of stone related obstruction and anterior the renal pelvis and upper pole calyces with ease. I then remove the 5 Indian ureteral access catheter leaving the wire in place, and I passed over the wire a 6 Indian by 24 cm double-J ureteral stent. A coil was then observed and formed in the upper pole calyx and renal pelvis fluoroscopically with an additional coil formed cystoscopically within his bladder. I then decompressed his bladder of fluid and urine and remove the cystoscope. He was then taken out of the lithotomy position, awakened from sedation, transferred to a stretcher, and then transferred to the recovery room in good condition. Complications: None Discharge disposition: Given his recent non-ST elevation DE and PCI with drug-eluting stent placed, he will require at least 6 months minimum of dual antiplatelet therapy before he would be a candidate for operative consideration. As such, follow-up should be established at around 4 to 5 months, where if he has not been cleared from a cardiac perspective to proceed with more invasive surgical management, this may be arranged in preparation for possible ESWL versus ureteroscopy with laser lithotripsy. Since the stone is radiopaque, ESWL is certainly an option if he is able to remain off dual antiplatelet therapy for at least 5 to 7 days postoperatively and 5 days preoperatively. Sooner follow-up may be established if patient is symptomatic and bothered by the ureteral stent.
[2024-03-11 17:09] VITALS: BP 145/55; TEMP 98
--- NOTE | 2024-03-11 18:29 | P.DS ---
Admission Date: 03/10/24 Discharge Date: 03/11/24 Disposition: ROUTINE DISCHARGE Discharge Condition: GOOD Reason for Admission: Chest pain Brief History of Present Illness: 78-year-old male with history of HTN, DM, CAD status post two-vessel CABG in the past11 years ago, with no PCI since then, follows with Dr. Ambrosio,, with stress test last year showing no reversible ischemia, BPH, recently diagnosed cholangiocarcinoma noted post lap roas 8 months ago, on chemo at [facility]; who presented because of a substernal to left sided chest pain since the last 4 hours. Chest pain is more of an aching and located in the substernal region, nonradiating, he rated pain at about 6 out of 10. No associated nausea, shortness of breath, palpitation, dizziness or syncope. He states chest pain is not exacerbated by ambulation. He presented to the ED because of persistent symptoms. On arrival in the ED vital signs were stable, afebrile, satting 99 on room air, troponin was elevated at 79, EKG showed normal sinus rhythm with no ST segment elevation, proBNP elevated at 2130, rest of labs were unremarkable except for creatinine of 1.94baseline of 1.1-1.4. Chest x-ray shows no acute infiltrate or pulmonary congestive changes. Chemo-Port in situ. Review of record shows patient has a history of chronic troponin elevation. Cardiology was consulted. Patient is being admitted for possible non-STEMI. Hospital Course: Pt is a 78yo male with past medical history of HTN, DM, CAD status post two- vessel CABG in the past11 years ago, with no PCI since then, follows with Dr. Ambrosio, with stress test last year showing no reversible ischemia, BPH, and cholangiocarcinoma (noted post lap rosa 8 months ago, on chemo at [facility]) who presented with substernal / left sided chest pain since the last 4 hours. On arrival in the ED, vital signs were stable, afebrile. Lab studies showed troponin 79, EKG showed normal sinus rhythm with no ST segment elevation, proBNP elevated at 2130, Cr 1.94. CXR was unremarkable. We admitted pt for NSTEMI. Troponin trended up (297<- 157<-82 <- 71 <- 50.5). Cardiology did cardiac cath and placed a stent in the RCA. We continued plavix and aspirin. CT abd and renal ultrasound showed right hydronephrosis with 11mm stone. We consulted Urology who did cystoscopy and renal stent placement. Pt was advised pt to follow up in clinic for further evaluation. YEIMI resolved with IVF (Cr 1.67 <- 1.97). We continued home med for other chronic medical medical problems. Pt was in NAD prior to discharge. Vital Signs/Physical Exam: Temp Pulse Resp BP Pulse Ox 98.0 F 84 16 145/55 H 95 03/11/24 17:07 03/11/24 17:07 03/11/24 17:07 03/11/24 17:07 03/11/24 14:43 Laboratory Data at Discharge: WBC 4.00 thou/uL (4.3-10.9) L 03/11/24 08:28 Hgb 8.4 g/dL (13.6-17.9) L 03/11/24 08:28 Hct 24.8 % (39.6-49.0) L 03/11/24 08:28 Plt Count 228 thou/uL (152-406) 03/11/24 08:28 PT 11.5 SECONDS (9.5-12.5) 03/09/24 21:51 INR 1.00 03/09/24 21:51 APTT Cancelled 03/10/24 17:00 Sodium 139 mEq/L (136-145) 03/11/24 08:28 Potassium 4.0 mEq/L (3.5-5.1) 03/11/24 08:28 BUN 27 mg/dL (7-18) H 03/11/24 08:28 Creatinine 1.67 mg/dL (0.70-1.30) H 03/11/24 08:28 Glucose 163 mg/dL (74-106) H 03/11/24 08:28 Phosphorus 3.8 mg/dL (2.5-4.9) 03/10/24 15:20 Magnesium 1.6 mg/dL (1.6-2.4) 03/09/24 21:51 Total Bilirubin 0.3 mg/dL (0.2-1.0) 03/11/24 08:28 AST 78 U/L (15-37) H 03/11/24 08:28 ALT 70 U/L (16-61) H 03/11/24 08:28 Alkaline Phosphatase 106 U/L (45-117) 03/11/24 08:28 Triglycerides 225 mg/dL (<150) H 03/11/24 08:28 Cholesterol 114 mg/dL (<200) 03/11/24 08:28 HDL Cholesterol 44 mg/dL (40-60) 03/11/24 08:28 Cholesterol/HDL Ratio 2.59 03/11/24 08:28 Lipase 228 U/L (13-75) H 03/09/24 21:51 Home Medications: Levothyroxine Sodium 75 mcg PO DAILY 06/09/23 Losartan Potassium 50 mg PO DAILY 06/09/23 Metoprolol Tartrate 50 mg PO BID 06/09/23 Tamsulosin [Flomax*] 0.4 mg PO BEDTIME 06/10/23 Aspirin Chewable [Aspirin Chewable*] 81 mg PO DAILY 90 Days #90 tab.chew 03/11/24 Clopidogrel Bisulfate [Plavix*] 75 mg PO DAILY 90 Days #180 tab 03/11/24 Glimepiride 4 mg PO BID 03/11/24 Latanoprost Ophth [Xalatan 0.005%*] 1 drop OP BEDTIME 03/11/24 Simvastatin [Zocor] 40 mg PO BEDTIME 03/11/24 New Medications: Aspirin Chewable [Aspirin Chewable*] 81 mg PO DAILY 90 Days #90 tab.chew Clopidogrel Bisulfate [Plavix*] 75 mg PO DAILY 90 Days #180 tab Physician Discharge Instructions: Continue ad radha activity. Take plavix and aspirin for at least 1 year. Continue other home meds. Follow up with the Urologist in 4 months for the renal stone. Follow up with PCP within 1 week. Diet: AHA Activity: Ad radha Followup: Sandie Tesfaye NP [Primary Care Provider] -
--- NOTE | 2024-03-11 20:14 | RAD REPORT ---
EXAM DESCRIPTION: RAD - Cystography - 03/11/2024 5:05 pm CLINICAL HISTORY: cysto COMPARISON: None available. FINDINGS: Six Images were sent to PACS, documenting fluoroscopy use during cystoscopy and right uret eral stent placement procedure. No radiologist was available for the procedure, nor will any image in terpretation he provided. Please refer to the procedural report for additional details. Fluoroscopy time: 18 seconds. IMPRESSION: Documentation of fluoroscopy utilization as above.
== END 2024-03-11 19:30 | disposition home or self-care (01) | DRG 322 ==
LOC: ER 21:18 → ERHOLD 03-10 03:22 → 4TH 03-10 04:32
PROVIDERS: ADMIT Internal Medicine; ATTEND Hospitalist
PROC: 027034Z Dilation of Coronary Artery, One Artery with Drug-eluting Intraluminal Device, Percutaneous Approach (ICD-10-PCS; principal; 2024-03-10)
PROC: 4A023N7 Measurement of Cardiac Sampling and Pressure, Left Heart, Percutaneous Approach (ICD-10-PCS; 2024-03-10)
PROC: B2131ZZ Fluoroscopy of Multiple Coronary Artery Bypass Grafts using Low Osmolar Contrast (ICD-10-PCS; 2024-03-10)
PROC: B2111ZZ Fluoroscopy of Multiple Coronary Arteries using Low Osmolar Contrast (ICD-10-PCS; 2024-03-10)
PROC: 0T768DZ Dilation of Right Ureter with Intraluminal Device, Via Natural or Artificial Opening Endoscopic (ICD-10-PCS; 2024-03-11)
PROC: BT1D1ZZ Fluoroscopy of Right Kidney, Ureter and Bladder using Low Osmolar Contrast (ICD-10-PCS; 2024-03-11)
DX: I21.4 Non-ST elevation (NSTEMI) myocardial infarction (principal); N13.2 Hydronephrosis with renal and ureteral calculous obstruction; C22.1 Intrahepatic bile duct carcinoma; I50.32 Chronic diastolic (congestive) heart failure; I13.0 Hypertensive heart and chronic kidney disease with heart failure and stage 1 through stage 4 chronic kidney disease, or unspecified chronic kidney disease; N17.9 Acute kidney failure, unspecified; N18.31 Chronic kidney disease, stage 3a; E11.22 Type 2 diabetes mellitus with diabetic chronic kidney disease; E11.65 Type 2 diabetes mellitus with hyperglycemia; I16.0 Hypertensive urgency; E03.9 Hypothyroidism, unspecified; N40.0 Benign prostatic hyperplasia without lower urinary tract symptoms; I25.10 Atherosclerotic heart disease of native coronary artery without angina pectoris; I25.2 Old myocardial infarction; Z88.5 Allergy status to narcotic agent; Z95.1 Presence of aortocoronary bypass graft; Z88.2 Allergy status to sulfonamides; Z79.82 Long term (current) use of aspirin; Z79.84 Long term (current) use of oral hypoglycemic drugs; Z90.49 Acquired absence of other specified parts of digestive tract; Z79.890 Hormone replacement therapy; Z79.899 Other long term (current) drug therapy
CPT/HCPCS: 36415; 51600; 71045; 74176; 74430; 76770; 76937; 80048; 80053; 80061; 80069; 80076; 81001; 82570; 82947; 83690; 83735; 83880; 84300; 84484; 85025; 85347; 85610; 85730; 93005; 93459; 99285; C1725; C1760; C1893; C9600; J0360; J0461; J1644; J2001; J2250; J2704; J3010; J3475; J7030; Q9967

== ENCOUNTER 2024-03-20 14:59 | Emergency (ER) | payer OTHER ==
--- OUTSIDE RECORDS SUMMARY | 2024-03-20 15:03 | XMS REPORT | Clinical Summary ---
Author Name Unknown Organization [facility] Address [address] [place] [address] Care Team Providers Care Dog Boarder Name Role Phone Al Carrasco MD Unavailable [phone] Dashawn Sutherland MD Primary Care Provider [phone] Allergies Active Allergy Reactions Criticality Noted Date [...] Encounters Date Type Department Care Team Description 03/11/2024 Orders Only [facility] [address] [facility] Main Bldg, 7th [place] [address] Marbella Pereira PA 03/09/2024 9:00 AM CDT Infusion [facility] - Infusion [address] [place] [address] Henini, Rim, PA Gould, Aarti K, RN Cholangiocarcinoma of biliary tract, NOS (Primary Dx) 03/09/2024 Travel 03/01/2024 10:30 AM CDT Follow-Up [facility] On[facility] [address] [place] [address] Dashawn Sutherland MD Cholangiocarcinoma of biliary tract, NOS (Primary Dx); 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 03/01/2024 Travel 02/24/2024 9:00 AM CDT Infusion [facility] [address] [place] [address] Marbella Pereira PA Brioso, Cecille, RN Cholangiocarcinoma of biliary tract, NOS (Primary Dx) 02/24/2024 Orders Only [facility] [address] [place] [address], 7th [place] [address] Dashawn Sutherland MD Cholangiocarcinoma of biliary tract, NOS (Primary Dx) 02/24/2024 Travel 02/10/2024 9:00 AM CDT Infusion [facility] [address] [place] [address] 4th [place] [address] Dashawn Sutherland MD Thomas, Alice, RN Cholangiocarcinoma of biliary tract, NOS (Primary Dx) 02/10/2024 Travel 02/06/2024 Orders Only [facility] [address] [place] [address] Marbella Pereira PA Cholangiocarcinoma of biliary tract, NOS (Primary Dx); Hydronephrosis, not otherwise specified; Calculus of ureter 02/06/2024 Orders Only [facility] - Medical Oncology [address] [place] [address] Marbella Pereira PA Cholangiocarcinoma of biliary tract, NOS (Primary Dx) 02/05/2024 10:20 AM CDT Ancillary Procedure [address] [place] [address] Marbella Pereira PA Cholangiocarcinoma of biliary tract, NOS; Right lower quadrant pain 02/05/2024 Travel 02/03/2024 Orders Only [facility] [address] [facility] Main Bldg, 7th [place] [address] Marbella Pereira PA 02/02/2024 2:00 PM CDT Telemedicine [facility] - Medical Oncology [address] [place] [address] Dashawn Sutherland MD Right lower quadrant pain (Primary Dx); Cholangiocarcinoma of biliary tract, NOS 01/30/2024 Orders Only [facility] [address] [facility] Main Bldg, 7th [place] [address] Reggie Suarez, [facility] 01/28/2024 Telephone [facility] - Infusion [address] [place] [address] Cameron Caban Jr., RN Follow-up 01/27/2024 10:00 AM CDT Infusion [facility] - Infusion [address] [place] [address] Dashawn Sutherland MD Alegado, Reynaldo F Jr., RN Cholangiocarcinoma of biliary tract, NOS (Primary Dx) 01/27/2024 Documentation [facility] [address] [facility] Main Bldg, 6th [place] [address] Gem Schmidt 01/27/2024 Travel 01/26/2024 1:15 PM CDT Ancillary Procedure [address] [place] [address] Marbella Pereira PA Cholangiocarcinoma of biliary tract, NOS 01/26/2024 Documentation [facility] [address] [place] [address] Marbella Pereira PA 01/26/2024 Orders Only [facility] [address] [place] [address] Marbella Pereira PA 01/26/2024 Travel 01/20/2024 Orders Only [facility] [address] [place] [address] Marbella Pereira PA Cholangiocarcinoma of biliary tract, NOS (Primary Dx) 01/20/2024 Orders Only [facility] [address] [facility], 7th [place] [address] Marbella Pereira PA Cholangiocarcinoma of biliary tract, NOS (Primary Dx) 01/20/2024 Documentation [facility] [address] [facility], 6th [place] [address] Gem Schmidt 01/20/2024 Orders Only Cardiopulmonary Center [facility], 6th [place] [address] Jose Finch MD Immunotherapy for cancer (Primary Dx) 01/20/2024 Orders Only [facility] [address] [place] [address] Marbella Pereira PA 01/19/2024 3:00 PM PAVING MACHINE OPERATOR Follow-Up [facility] [address] [place] [address] Dashawn Sutherland MD Cholangiocarcinoma of biliary tract, NOS (Primary Dx) 01/19/2024 Orders Only [facility], 7th [place] [address] Ney Sierra RPH 01/19/2024 Travel 01/16/2024 5:00 PM PAVING MACHINE OPERATOR - 01/16/2024 11:59 PM PAVING MACHINE OPERATOR Hospital Encounter [facility] [address] [facility], 8th [place] [address] Dashawn Sutherland MD Zarate, Iris Davidson, vending route servicer Disposition: Home 01/16/2024 4:15 PM PAVING MACHINE OPERATOR Ancillary Procedure [facility] [address] [facility], 4th [place] [address] Marbella Pereira PA Cholangiocarcinoma of biliary tract, NOS 01/16/2024 Travel 01/14/[address] [place] [address] Isreal Ngo, TORREY 01/14/2024 Orders Only [facility] [address] [place] [address] Marbella Pereira PA Cholangiocarcinoma of biliary tract, NOS (Primary Dx) 01/14/2024 Travel 01/14/2024 Lab Requisition [facility] Ryan Loredo, Ralf Jimenes 01/14/2024 Lab Requisition [facility] Ryan Loredo, Shilpa Nicholson MD 01/12/[address] [address] Magnolia Spencer MA 01/09/2024 11:30 PM PAVING MACHINE OPERATOR Ancillary Procedure [facility] [address] [place] [address] Dashawn Sutherland MD Cancer 01/09/2024 11:25 PM PAVING MACHINE OPERATOR Ancillary Procedure [facility] [address] [place] [address] Dashawn Sutherland MD Cancer 01/09/2024 11:20 PM PAVING MACHINE OPERATOR Ancillary Procedure [facility] [address] [place] [address] Dashawn Sutherland MD Cancer 01/09/2024 11:15 PM PAVING MACHINE OPERATOR Ancillary Procedure [facility] [address] [place] [address] Dashawn Sutherland MD Cancer 01/09/2024 Orders Only [facility] [address] [place] [address] Marbella Pereira PA 01/08/2024 Orders Only [facility] [address] [place] [address] Marbella Pereira PA Cholangiocarcinoma of biliary tract, NOS (Primary Dx) 01/07/2024 2:35 PM PAVING MACHINE OPERATOR Ancillary Procedure [address] [address] Dashawn Sutherland MD Cholangiocarcinoma of biliary tract, NOS 01/07/2024 1:00 PM PAVING MACHINE OPERATOR Office Visit [facility] [address] [place] [address] Dashawn Sutherland MD Cholangiocarcinoma of biliary tract, NOS (Primary Dx) 01/07/2024 12:30 PM PAVING MACHINE OPERATOR NPR [facility] PATIENT ACCESS 01/07/2024 Orders Only [facility] [address] [place] [address] Marbella Pereira PA Cholangiocarcinoma of biliary tract, NOS (Primary Dx) 01/07/2024 Travel 01/05/2024 Orders Only [facility] [address] [place] [address] Main Bldg, 7th [place], [place] [phone] Dashawn Sutherland MD Cholangiocarcinoma of biliary tract, NOS (Primary Dx) 12/26/2023 Telephone [facility] [address] [place] [address] Main dg, 7th Floor [place], [place] [phone] Kristine Farias, RN after 03/21/2023 Surgical History Surgery Date Site/Laterality Comments COLONOSCOPY [...] Encounters Date Type Department Care Team Description 03/22/2024 11:00 AM CDT Follow-Up MD [facility] - Medical Oncology [address] [place] [address] Dashawn Sutherland MD [address] [place] [address] 03/23/2024 7:30 AM CDT Lab MD [facility] [address] [place] [address] Marbella Pereira PA [address] [place] [address] 03/23/2024 8:30 AM CDT Infusion MD [facility] [place] - Infusion [address] [place] [address] Marbella Pereira PA [address] [place] [address] 03/23/2024 1:45 PM CDT Ancillary Procedure MD [facility] [address] [place] [address] Marbella Pereira PA [facility] [place] [address] 04/06/2024 7:00 AM CDT Lab MD [facility] [address] [place] [address] Marbella Pereira PA [address] [place] [address] 04/06/2024 8:00 AM CDT Infusion MD [facility] [place] - [address] [address] Marbella Preeira PA [address] [place] [address] 04/09/2024 10:30 AM CDT Consult Gen[facility]our[facility], 7th [place] [address] Al Quick IV, MD [address] [place] [address] 04/20/2024 8:00 AM CDT Lab MD [facility] [address] [place] [address] Marbella Pereira PA [address] [place] [address] 04/20/2024 9:00 AM CDT Infusion MD [facility] [place] - [address] [address] Marbella Pereira PA [address] [place] [address] 05/04/2024 8:00 AM CDT Lab MD [facility] [address] [place] [address] Marbella Pereira PA [address] [place] [address] 05/04/2024 9:00 AM CDT Infusion MD [facility] - Infusion [address] [place] [address] Marbella Pereira PA [address] [place] [address] Health Maintenance Due Date Last Done Comments COVID-19 Vaccine (#1) 1950 Influenza Vaccine 07/18/2024 Medical Devices Implanted Type Area Casing Sewer Device Identifier Shelf Expiration Date Model / Serial / Lot Cardiac Stent Stent Description:Per MD [facility] policy conditional Biliary Stent-01/14/2024 Implanted:2023 (Quantity not on file) Stent Bile Duct Description:[facility] Per in Dr.Brown pena to proceed up [...] for cancer .CBC Routine 01/19/2024 2:09 PM PAVING MACHINE OPERATOR Cholangiocarcinoma of biliary tract, NOS COMPREHENSIVE METABOLIC PANEL Routine 01/19/2024 2:09 PM PAVING MACHINE OPERATOR Cholangiocarcinoma of biliary tract, NOS COMPLETE BLOOD COUNT W/ DIFFERENTIAL Routine 01/19/2024 2:09 PM PAVING MACHINE OPERATOR Cholangiocarcinoma of biliary tract, NOS MRI ABDOMEN & PELVIS W AND WO CONTRAST Routine 01/16/2024 6:53 PM PAVING MACHINE OPERATOR Cholangiocarcinoma of biliary tract, NOS .CBC Routine 01/14/2024 9:53 AM PAVING MACHINE OPERATOR Cholangiocarcinoma of biliary tract, NOS CARBOHYDRATE ANTIGEN 19-9 Routine 01/14/2024 9:53 AM PAVING MACHINE OPERATOR Cholangiocarcinoma of biliary tract, NOS COMPREHENSIVE METABOLIC PANEL Routine 01/14/2024 9:53 AM PAVING MACHINE OPERATOR Cholangiocarcinoma of biliary tract, NOS COMPLETE BLOOD COUNT W/ DIFFERENTIAL Routine 01/14/2024 9:53 AM PAVING MACHINE OPERATOR Cholangiocarcinoma of biliary tract, NOS CT CHEST WO CONTRAST Routine 01/07/2024 4:49 PM PAVING MACHINE OPERATOR Cholangiocarcinoma of biliary tract, NOS POC CREATININE Routine 01/07/2024 3:57 PM PAVING MACHINE OPERATOR OSI INTERVENTIONAL Routine 12/19/2023 11 :58 PM PAVING MACHINE OPERATOR Cancer OSI INTERVENTIONAL Routine 12/09/2023 11 :57 PM PAVING MACHINE OPERATOR Cancer OSI CT CHEST Routine 12/09/2023 11:57 PM PAVING MACHINE OPERATOR Cancer OSI CT ABDOMEN AND PELVIS Routine 12/09/2023 11:57 PM PAVING MACHINE OPERATOR Cancer PATHOLOGY OUTSIDE INTERPRETATION Routine 12/09/2023 PATHOLOGY OUTSIDE INTERPRETATION Routine 12/09/2023 after 03/21/2023 Results * (ABNORMAL) .CBC (03/09/2024 8:13 AM CDT) Only the most recent of7 resultswithin the time period is included. White Blood Cell 11.2(H) 4.1 - 10.5 K/uL 03/09/2024 8:22 AM [facility] Red Blood Cell 2.99(L) 4.30 - 6.04 M/uL 03/09/2024 8:22 AM [facility] Hemoglobin 9.1(L) 13.3 - 17.4 g/dL 03/09/2024 8:22 AM [facility] Hematocrit 28.0(L) 39.5 - 51.8 % 03/09/2024 8:22 AM [facility] Mean Cell Volume 94 82 - 99 fL 03/09/2024 8:22 AM [facility] Mean Cell Hemoglobin 30.4 26.6 - 33.2 pg 03/09/2024 8:22 AM [facility] Mean Cell Hemoglobin Concentration 32.5 31.1 - 35.2 g/dL 03/09/2024 8:22 AM [facility] RDW-SD 49.1 37.5 - 49.7 fL 03/09/2024 8:22 AM [facility] Red Cell Diameter Width 15.0 11.6 - 15.5 % 03/09/2024 8:22 AM [facility] Platelet 193 160 - 397 K/uL 03/09/2024 8:22 AM [facility] Mean Platelet Volume 9.8 9.1 - 12.6 fL 03/09/2024 8:22 AM [facility] Neutrophil % 64.5 43.2 - 72.7 % 03/09/2024 8:22 AM [facility] Lymphocyte % 14.0(L) 16.8 - 46.2 % 03/09/2024 8:22 AM [facility] Monocyte % 19.8(H) 5.1 - 12.5 % 03/09/2024 8:22 AM [facility] Eosinophil % 0.9 0.4 - 6.3 % 03/09/2024 8:22 AM [facility] Basophil % 0.2 0.2 - 1.4 % 03/09/2024 8:22 AM [facility] IGRE % 0.6 0.1 - 1.5 % 03/09/2024 8:22 AM [facility] Comment:The IGRE% includes M etamyelocytes, Myelocytes and Promyelocytes. Neutrophil Abs 7.19 1.95 - 7.25 K/uL 03/09/2024 8:22 AM [facility] Lymphocyte Abs 1.56 1.01 - 3.24 K/uL 03/09/2024 8:22 AM [facility] Monocyte Abs 2.21(H) 0.24 - 0.85 K/uL 03/09/2024 8:22 AM [facility] [place] Eosinophil Abs 0.10 0.02 - 0.50 K/uL 03/09/2024 8:22 AM [facility] Basophil Abs 0.02 0.02 - 0.09 K/uL 03/09/2024 8:22 AM [facility] IG Abs 0.07 0.01 - 0.12 K/uL 03/09/2024 8:22 AM [facility] Blood Venous blood specimen / Unknown Port / Unknown 03/09/2024 8:13 AM CDT 03/09/2024 8:17 AM CDT Marbella GRAJEDA LAB BLOOD ORDERABLES Performing Organization Address City/State/[facility] Co de Phone Number [facility] [address] [facility], [facility] [address] [place] [address] * (ABNORMAL) Comprehensive Metabolic Panel (03/09/2024 8:13 AM CDT) Only the most recent of7 resultswithin the time period is included. Bilirubin Total 0.3 0.0 - 1.2 mg/dL 03/09/2024 8:42 AM [facility] Comment:Indocyanine Green (I CG) may cause falsely elevated bilirubin results. Total and direct bilirubin must not be measured from samples containing indocyanine green. False elevation of total bilirubin can be seen in patients with IgG concentrations above 28 g/L. eGFR 44(L) >=60 mL/min/1. 73 sq. m 03/09/2024 8:42 AM [facility] Comment: The eGFRcr is calculated with the [...] 6.4 - 8.3 gm/dL 03/09/2024 8:42 AM [facility] Calcium Level Total 9.6 8.2 - 10.2 mg/dL 03/09/2024 8:42 AM [facility] Alkaline Phosphatase 143(H) 40 - 129 U/L 03/09/2024 8:42 AM [facility] Albumin Level 3.6 3.5 - 5.2 gm/dL 03/09/2024 8:42 AM [facility] AST 47(H) <=40 U/L 03/09/2024 8:42 AM [facility] ALT 57(H) <=41 U/L 03/09/2024 8:42 AM [facility] Sodium Level 139 136 - 145 mmol/L 03/09/2024 8:42 AM [facility] Potassium Level 4.3 3.4 - 4.5 mmol/L 03/09/2024 8:42 AM [facility] Chloride 106 98 - 107 mmol/L 03/09/2024 8:42 AM [facility] CO2 24 22 - 29 mmol/L 03/09/2024 8:42 AM [facility] Anion Gap 9 4 - 14 mmol/L 03/09/2024 8:42 AM [facility] Creatinine 1.59(H) 0.67 - 1.17 mg/dL 03/09/2024 8:42 AM [facility] BUN 24(H) 6 - 23 mg/dL 03/09/2024 8:42 AM [facility] Glucose Level 138(H) 70 - 99 mg/dL 03/09/2024 8:42 AM [facility] [place] Comment: Effective 06/12/16, the glucose reference intervals have been updated based on [place] [employer] guidelines (Standards of Medical Care [...] GRAJEDA LAB BLOOD ORDERABLES Performing Organization Address City/[facility]/ZIP Co de Phone Number [place] [address] [place] [address] * (ABNORMAL) CA 19-9 (02/24/2024 7:23 AM CDT) Only the most recent of3 resultswithin the time period is included. CA 19-9 49.3(H) <=35.0 U/mL 02/24/2024 8:54 AM [facility] [place] Blood Venous blood specimen / Unknown Port / Unknown 02/24/2024 7:23 AM CDT 02/24/2024 7:27 AM CDT Narrative [place] - 02/24/2024 8:54 AM CDT Results greater than 9500 U/mL may not be reliable due to matrix effect with extended dilution as it exceeds the press cleaner's recommended limit. Caution should be exercised when interpreting such values and done in conjunction with clinical context. This test is measured by electrochemiluminescence immunoassay on Parker Kat immunoassay analyzers. Results obtained in different methods are not interchangeable. Marbella GRAJEDA LAB BLOOD ORDERABLES Performing Organization Address [facility]/ZIP Co de Phone Number [address], [facility] [address] [place] [address] * (ABNORMAL) Differential (02/24/2024 7:23 AM CDT) Total Cells 100 02/24/2024 7:57 AM [facility] Manual Neutrophil % 46.0 43.2 - 72.7 % 02/24/2024 7:57 AM [facility] Comment:The Neutrophil count includes Bands. Manual Lymphocyte % 35.0 16.8 - 46.2 % 02/24/2024 7:57 AM [facility] Manual Monocyte % 18.0(H) 5.1 - 12.5 % 02/24/2024 7:57 AM [facility] Manual Eosinophil % 1.0 0.4 - 6.3 % 02/24/2024 7:57 AM [facility] Metamyelocyte % 7:57 AM [facility] Comment:The Metamyelocyte co unt includes Myelocytes. Manual Neutrophil Abs 2.94 1.95 - 7.25 K/uL 02/24/2024 7:57 AM [facility] Manual Lymphocyte Abs 2.24 1.01 - 3.24 K/uL 02/24/2024 7:57 AM [facility] Manual Monocyte Abs 1.15(H) 0.24 - 0.85 K/uL 02/24/2024 7:57 AM [facility] Manual Eosinophil Abs 0.06 0.02 - 0.50 K/uL 02/24/2024 7:57 AM [facility] RBC Morphology NORMAL 02/24/2024 7:57 AM [facility] PLT Morph Normal Normal 02/24/2024 7:57 AM [facility] Blood Venous blood specimen / Unknown Port / Unknown 02/24/2024 7:23 AM CDT 02/24/2024 7:27 AM CDT Marbella GRAJEDA LAB BLOOD ORDERABLES [facility] [address] [facility], [facility] [address] [place] [address] * TSH (02/24/2024 7:23 AM CDT) Only the most recent of2 resultswithin the time period is included. Thyroid Stimulating Hormone 1.66 0.27 - 4.20 mcunit/mL 02/24/2024 8:54 AM CDT [place] Blood Venous blood specimen / Unknown Port / Unknown 02/24/2024 7:23 AM CDT 02/24/2024 7:27 AM CDT Marbella GRAJEDA LAB BLOOD ORDERABLES Performing Organization Address City/[facility] Co de Phone Number [address] [address] * Free T4 (02/24/2024 7:23 AM CDT) Only the most recent of2 resultswithin the time period is included. T4 (Thyroxine) Free 1.62 0.93 - 1.70 ng/dL 02/24/2024 8:54 AM CDT [place] Blood Venous blood specimen / Unknown Port / Unknown 02/24/2024 7:23 AM CDT 02/24/2024 7:27 AM CDT Marbella GRAJEDA LAB BLOOD ORDERABLES Performing Organization Address City/[facility] Co de Phone Number [address] [address] * (ABNORMAL) Hemoglobin A1c (02/24/2024 7:23 AM CDT) Hemoglobin A1c 8.0(H) 4.3 - 5.6 % 02/24/2024 5:38 PM CDT [place] Blood Venous blood specimen / Unknown Port / Unknown 02/24/2024 7:23 AM CDT 02/24/2024 7:27 AM CDT Adin [place] - 02/24/2024 5:38 PM CDT HbA1c values >=6.5% are diagnostic of diabetes mellitus. Diagnosis should be confirmed by repeat testing. Therapeutic Action suggested: >8.0% HbA1c; Goal of therapy: <7.0% HbA1c Dashawn Sutherland MD LAB BLOOD ORDERABLES Performing Organization Address [facility] Co de Phone Number [address], [facility] [address] [place] [address] * CEA (02/24/2024 7:23 AM CDT) Only the most recent of2 resultswithin the time period is included. Carcinoembryonic Antigen 2.4 <=3.8 ng/mL 02/24/2024 8:54 AM CDT [place] Blood Venous blood specimen / Unknown Port / Unknown 02/24/2024 7:23 AM CDT 02/24/2024 7:27 AM CDT [facility] - 02/24/2024 8:54 AM CDT Reference Ranges (age 20-69 years): Non-smoker: 0.0 - 3.8 ng/mL Smoker: 0.0 - 5.5 ng/mL This test is measured by electrochemiluminescence immunoassay on Parker Akt immunoassay analyzers. Results obtained in different methods are not interchangeable. Marbella GRAJEDA LAB BLOOD ORDERABLES Performing Organization Address [facility] Co de Phone Number [address], [facility] [address] [place] [address] * CT Abdomen Pelvis without Contrast (02/05/2024 [...] 1,432(H) <=450 pg/mL 01/27/2024 3:01 PM CDT [facility] Blood Peripheral blood specimen / Unknown Port / Unknown 01/27/2024 9:16 AM CDT 01/27/2024 9:17 AM CDT Jose Finch MD LAB BLOOD ORDERABLES [facility] Unless otherwise noted, all lab tests performed by: Division of Pathology and Laboratory Medicine [address] [place] [id number] * Troponin I (Sendout) (01/27/2024 9:16 AM CDT) Troponin-I 27 <=78 01/28/2024 7:08 AM CDT [facility] Blood Peripheral blood specimen / Unknown Port / Unknown 01/27/2024 9:16 AM CDT 01/27/2024 9:17 AM CDT Narrative [facility] - 01/28/2024 7:08 AM CDT Based on the Third [place] Definition of Mycocardial Infarction, the 99th percentile upper reference limit of Troponin I for a healthy population is <0.03 ng/mL. Jose Finch MD LAB BLOOD ORDERABLES [facility] [address] [place] [address], * (ABNORMAL) Troponin T (In-House) (01/27/2024 9:16 AM CDT) Troponin T 34(H) <=19 ng/L 01/27/2024 2:57 PM CDT [facility] Blood Peripheral blood specimen / Unknown Port / Unknown 01/27/2024 9:16 AM CDT 01/27/2024 9:17 AM CDT Narrative [facility] - 01/27/2024 2:57 PM CDT Reference range [...] results. Jose Finch MD LAB BLOOD ORDERABLES [facility] Unless otherwise noted, all lab tests performed by: Division of Pathology and Laboratory Medicine [address] [place] [id number] * CKMB (01/27/2024 9:16 AM CDT) CKMB <2.0 <=10.4 ng/mL 01/27/2024 3:01 PM CDT [facility] Blood Peripheral blood specimen / Unknown Port / Unknown 01/27/2024 9:16 AM CDT 01/27/2024 9:17 AM CDT Jose Finch MD LAB BLOOD ORDERABLES [facility] Unless otherwise noted, all lab tests performed by: Division of Pathology and Laboratory Medicine [address] [place] [id number] * Creatine Kinase (01/27/2024 9:16 AM CDT) Creatine Kinase 41 39 - 308 U/L 01/27/2024 3:01 PM CDT [facility] Blood Peripheral blood specimen / Unknown Port / Unknown 01/27/2024 9:16 AM CDT 01/27/2024 9:17 AM CDT Jose Finch MD LAB BLOOD ORDERABLES Performing Organization Address City/[facility]/ZIP Co de Phone Number [facility] Unless otherwise noted, all lab tests performed by: Division of Pathology and Laboratory Medicine [address] [place] [id number] * (ABNORMAL) Lipid Panel (01/27/2024 9:16 AM CDT) Cholesterol Total 142 <=199 mg/dL 01/27/2024 9:55 AM [facility] Comment: ATP III Classification of Total Cholesterol - Primary Target of Therapy (in mg/dL): <200 Desirable 200-239 Borderline high >=240 High Triglyceride 210(H) <=149 mg/dL 01/27/2024 9:55 AM [facility] Comment: ATP III Classification of Serum Triglycerides Primary Target of Therapy (in mg/dL): <150 Normal 150-199 Borderline high 200-499 High >=500 Very high Non-fasting triglycerides >200 mg/dL may be followed up with a fasting Lipid Panel. Calculated LDL-C may be falsely decreased when non-fasting triglycerides >200 mg/dL. HDL Cholesterol 39(L) >=40 mg/dL 01/27/2024 9:55 AM [facility] LDL Cholesterol 61 <=100 mg/dL 01/27/2024 9:55 AM [facility] Comment: ATP III Classification of LDL Cholesterol Primary Target of Therapy (in mg/dL): <100 Optimal 100-129 Near optimal/above optimal 130-159 Borderline high 160-189 High >=190 Very high Very Low Density Lipoprotein 42 mg/dL 01/27/2024 9:55 AM CDT [place] Is patient fasting? Yes 01/26 9:55 AM CDT [place] Blood Peripheral blood specimen / Unknown Port / Unknown 01/27/2024 9:16 AM CDT 01/27/2024 9:17 AM CDT Jose Finch MD LAB BLOOD ORDERABLES [facility] [address] [facility], [facility] [address] [place] [address] * Tip Verification Central Vascular Access Device [...] graft changes. Prominent cardiac silhouette. Procedure Note Sae Rushing MD - 01/26/2024 FULL RESULT: Examination: XR [...] with and without Contrast (01/16/2024 6:53 PM PAVING MACHINE OPERATOR) Anatomical Region Laterality Modality Abdomen Magnetic Resonan ce 01/17/2024 5:58 AM PAVING MACHINE OPERATOR Impressions 01/17/2024 7:20 AM PAVING MACHINE OPERATOR Impression: 1. The primary tumor within the [...] ITEMS/RECOMMENDATIONS*: See impression. Narrative 01/17/2024 7:20 AM PAVING MACHINE OPERATOR Examination: MRI ABDOMEN & PELVIS W AND [...] pelvis dated 12/09/2023 and ERCP imagesfrom ERCP 2. Comparison is also made with CT chest [...] in the segment 8 liver dome medially ([email or web address], image 174) shows corresponding T2 hyperintensity (series [...] intra-abdominal lymphadenopathy. ACTIONABLE ITEMS/RECOMMENDATIONS*: See impression. Marbella Kelli NICCI IMG MRI ORDERABLES * CT Chest without Contrast (01/07/2024 4:49 PM PAVING MACHINE OPERATOR) Anatomical Region Laterality Modality Chest Computed Tomogra phy 01/08/2024 7:15 AM PAVING MACHINE OPERATOR Impressions 01/08/2024 7:30 AM PAVING MACHINE OPERATOR Calcified and noncalcified pulmonary nodules may be sequela of granulomatous disease. Follow-up to ensure stability exclude metastatic disease can be performed. Bilateral peripheral lower lung reticular opacities concerning for scarring/fibrosis. Additional opacities in the right lower lobe most likely due to atelectasis or scarring and clinical correlation and follow-up is recommended. ACTIONABLE ITEMS/RECOMMENDATIONS*: See impression. Narrative 01/08/2024 7:30 AM PAVING MACHINE OPERATOR FULL RESULT: Examination: CT CHEST WO CONTRAST [...] recommended. ACTIONABLE ITEMS/RECOMMENDATIONS*: See impression. Marbella GRAJEDA [facility] CT ORDERABLES * (ABNORMAL) POC Creatinine (01/07/2024 3:57 PM PAVING MACHINE OPERATOR) POC Creatinine 1.9(H) 0.6 - 1.3 mg/dL 01/07/2024 4:00 PM [facility] Comment:Medications, especia lly hydroxyurea or supplements, such as ascorbate, can interfere with test results causing a falsely and significantly higher result than expected. If a problem is suspected with a patient's result, a sample should be sent to the laboratory for confirmatory testing. POC eGFR 35(L) >=60 mL/min/1.7 3 sq. m 01/07/2024 4:00 PM [facility] Comment: The eGFRcr is calculated with the [...] criteria for CKD. Blood 01/07/2024 3:57 PM PAVING MACHINE OPERATOR 01/07/2024 4:00 PM PAVING MACHINE OPERATOR Narrative [place] - 01/07/2024 4:00 PM PAVING MACHINE OPERATOR Method description: The i-STAT is an analyzer [...] Sutherland MD POCT ORDERABLES - DE VICE Performing Organization Address City/State/[facility] Co de Phone Number [facility] [place] [address] [facility], [facility] [address] [place] [address] * OSI Interventional (12/19/2023 11:58 PM PAVING MACHINE OPERATOR) Only the most recent of2 resultswithin the time period is included. Narrative Systemgenerated, Documentation - 01/09/2024 11:58 PM PAVING MACHINE OPERATOR Study acquired at another institution. For comparison only. No MD Navarrete originated interpretation requested or available. Dashawn Sutherland MD IMG OUTSIDE IMAGE OR DERABLES * OSI CT Chest (12/09/2023 11:57 PM PAVING MACHINE OPERATOR) Narrative Systemgenerated, Documentation - 01/09/2024 11:57 PM PAVING MACHINE OPERATOR Study acquired at another institution. For comparison only. No MD Navarrete originated interpretation requested or available. Dashawn PAGEG OUTSIDE IMAGE OR DERABLES * OSI CT Abdomen and Pelvis (12/09/2023 11:57 PM PAVING MACHINE OPERATOR) Narrative Systemgenerated, Documentation - 01/09/2024 11:57 PM PAVING MACHINE OPERATOR Study acquired at another institution. For comparison only. No [facility] originated interpretation requested or available. Dashawn Sutherland MD IMG OUTSIDE IMAGE OR DERABLES * Pathology Outside Interpretation (12/09/2023) Only the most recent of2 resultswithin the time period is included. Materials Received Accession#, Stained, Block, Unstained Collected Received A. [id number], 4 SS, 0 BLOCKS, 0 USS 12/09/2023 01/14/2024 01/15/2024 11:40 AM PAVING MACHINE OPERATOR [facility] Diagnosis Received 4 slides ([id number]) designated common bile duct, brushing: Rare atypical cell clusters 01/15/2024 11:[address] [facility] Comment Scant cellularity precludes a more definitive characterization. See also the [facility] review ([id number]) of the concurrent biopsy. 01/15/2024 11:[address] [facility] Disclaimer "Some tests reported here may have been developed and performance characteristics determined by [facility] Pathology and Laboratory Medicine. These tests have not been specifically cleared or approved by the U.S. Food and Drug Administration. If applicable, controls were reviewed and showed appropriate reactivity." 01/15/2024 11:[address] [facility] Tissue 12/09/2023 01/14/2024 11: 40 AM PAVING MACHINE OPERATOR Ralf Pelayo LAB PATHOLOGY ORDERA CANDIE [facility] [place] [address], [place] after 03/21/2023 Care Teams Dog Boarder Relationship Specialty Start Date End Date Al Carrasco MD [address] [id number] PCP - External Follow Up A General Surgery 12/26/23 Dashawn Sutherland MD [address] [place] [id number] PCP - General Gastrointestinal Medical Oncology 01/05/24
[2024-03-20 16:04] LABS: Absolute Eosinophils 0.1 K/uL (0-0.5); Eosinophils % 1.6 % (0-4.4)
[2024-03-20 16:19] LABS: Albumin 2.7 g/dL (3.4-5.0); Albumin/Globulin Ratio 0.6 (1.1-1.8); Anion Gap 7.8 mEq/L (5.0-15.0); Bilirubin Total 0.3 mg/dL (0.2-1.0); Globulin 4.7 g/dL (2.3-3.5); PT Prothrombin Time 11.2 SECONDS (9.5-12.5); PTT, Activated Partial Thromb 28.7 SECONDS (24.3-36.9); Potassium 3.8 mEq/L (3.5-5.1); Protein, Total 7.4 g/dL (6.4-8.2); Protime INR 1.02
[2024-03-20 17:00] LABS: Absolute Lymphocytes (CBC) 0.9 K/uL (0.7-4.9); Absolute Monocytes 1.8 K/uL (0.1-1.3); Absolute Neutrophil 3.5 K/uL (1.8-8.0); Basophils % 0.3 % (0-1.3); Hematocrit 25.3 % (39.6-49.0); Hemoglobin 8.6 g/dL (13.6-17.9); Lymphocytes % 14.4 % (15.3-44.8); MCH 30.7 pg (27.0-35.0); MCV 90.5 fL (80-100); MPV 9.4 fL (7.6-11.3); Monocytes % 28.5 % (3.3-12.3); Neutrophils % 55.2 % (41.7-73.7); Nucleated Red Blood Cells % 0.1 % (0-0); Platelets 74 thou/uL (152-406); RBC Red Blood Cell Count 2.79 M/uL (4.33-5.43); Red Cell Distribution Width 16.4 % (12.1-15.2)
--- NOTE | 2024-03-20 17:07 | RAD REPORT ---
EXAM DESCRIPTION: CTAbdomen Pelvis Wo Contrast - 03/20/2024 4:56 pm CLINICAL HISTORY: HEMATURIA COMPARISON: <Comparisons> TECHNIQUE: CT of the abdomen and pelvis was performed. All CT scans are performed using dose optimization technique as appropriate and may include automated exposure control or mA/KV adjustment according to patient size. FINDINGS: Lower chest: Coronary artery calcifications. Small hiatal hernia. Liver: Pneumobilia. Common bile duct stent present. Biliary: Cholecystectomy. Common bile duct stent present. Pneumobilia. Stomach: No significant focal abnormality. Duodenum: Duodenum diverticulum. Pancreas: No significant abnormality. Spleen: No significant abnormality. Adrenal: No suspicious lesions. Kidney/ureter: Right ureteral stent in place. There is still right-sided hydronephrosis. The large st one in the right proximal ureter measuring 12 millimeters is again noted. Bilateral nephrolithiasis. Retroperitoneum: No retroperitoneal adenopathy. Vascular: No aneurysm. Atherosclerosis. Bowel: No significant focal abnormality. Peritoneum: No ascites or free air. Bladder: Dense contents within the bladder likely representing hemorrhage . Reproductive: No adnexal masses. Bones: No acute fracture. Other: n/a IMPRESSION: Interval placement of a right ureteral stent. Persistent right-sided hydronephrosis is n oted. The 12 mm right proximal ureteral stone is again identified. Hyperdense contents within the gale dder consistent with bladder hemorrhage.
[2024-03-20 17:37] LABS: Specific Gravity 1.022 (1.005-1.030); Urine Bilirubin NEGATIVE (Negative); Urine Blood 3+ (Negative); Urine Clarity Extremely Turbid (Clear); Urine Glucose 2+ (Negative); Urine Ketones NEGATIVE (Negative); Urine Nitrite NEGATIVE (Negative); Urine Protein 4+ (Over) (Negative); Urine Urobilinogen Normal (Normal)
[2024-03-20 17:41] LABS: Sqamous Epithelial None Seen /HPF (None Seen); Urine Bacteria <20 /HPF (<20); Urine Culture Reflex Order REFLEXED; Urine Microscopic Reflex YN ORDER UMIC; Urine RBC >50 /HPF (None Seen); Urine WBC >50 /HPF (<5)
[2024-03-20 17:44] LABS: Urine Color Dark-Red (Yellow)
[2024-03-20] MEDS ORDERED: NACL 0.9% IRR SOLN 0 ML IRR ONE (17:46)
[2024-03-20] MEDS ORDERED: NACL 0.9% IRR SOLN 4,000 ML IRR ONE ×2 (19:07→21:45)
--- NOTE | 2024-03-20 21:18 | EDPHYS ---
Physician Documentation [facility] Name: Nnamdi Flores III Age: 78 yrs Sex: Male : 1945 Arrival Date: 03/20/2024 Time: 14:59 Bed 19 Private MD: ED Physician Chase Mesa HPI: 03/20 15:22 This 78 yrs old Male presents to ER via Ambulatory with complaints of hematuria. sb4 15:22 The patient presents with urinary symptoms. Onset: The symptoms/episode began/occurred sb4 this morning. Modifying factors: The symptoms are alleviated by nothing, the symptoms are aggravated by nothing. Associated signs and symptoms: The patient has no apparent associated signs or symptoms. The patient has not experienced similar symptoms in the past. The patient has been recently seen by a physician: The patient has been recently been admitted at [facility], was discharged last week. admitted here 10 days ago for NSTEMI and 11 cm ureterolithiasis, had 2 stents placed in coronaries as well as ureteral. discharged on DAPT. states started having gross hematuria today associated with penile pain. Historical: - Allergies: 15:13 Morphine; hb 15:13 Sulfa (Sulfonamide Antibiotics); hb 15:14 Morphine; ld1 15:14 Sulfa (Sulfonamide Antibiotics); ld1 - Home Meds: 15:13 Oxybutynin Chloride Oral daily [Active]; aspirin 81 mg Oral tablet,chewable daily hb [Active]; Plavix 75 mg Oral tablet daily [Active]; Metoprolol Tartrate Oral [Active]; losartan oral [Active]; Glimepiride Oral [Active]; - PMHx: 15:13 BILE DUCT CANCER (Hypothyroidism); BPH; coronary atherosclerosis; Hypertensive hb disorder; Hypothyroidism; 15:14 BILE DUCT CANCER (Hypothyroidism); BPH; coronary atherosclerosis; Hypertensive ld1 disorder; Hypothyroidism; - Immunization history:: Adult Immunizations up to date, Adult Immunizations up to date. - Infectious Disease History:: Denies. Denies. - Social history:: Smoking status: Patient denies any tobacco usage or history of. Smoking status: Patient denies any tobacco usage or history of. ROS: 15:22 Constitutional: Negative for fever, chills, and weight loss, sb4 15:22 : Positive for hematuria, 15:22 All other systems are negative, Exam: 15:22 Constitutional: This is a well developed, well nourished patient who is awake, alert, sb4 and in no acute distress. Head/Face: Normocephalic, atraumatic. Eyes: Extra-ocular motions intact. Periorbital areas with no swelling, redness, or edema. ENT: Mucous membranes moist. Cardiovascular: Regular rate and rhythm with a normal S1 and S2. Respiratory: Lungs have equal breath sounds bilaterally, clear to auscultation and percussion. No rales, rhonchi or wheezes noted. No increased work of breathing, no retractions or nasal flaring. Abdomen/GI: Soft, non-tender, no distension. Skin: Warm, dry with normal turgor. Normal color with no rashes, no lesions, and no evidence of cellulitis. MS/ Extremity: Pulses equal, no cyanosis. Neurovascular intact. Full, normal range of motion. Neuro: Awake and alert, GCS 15, oriented to person, place, time, and situation. Motor strength 5/5 in all extremities. Sensory grossly intact. Vital Signs: 15:11 BP 168 / 53; Pulse 88; Resp 16; Temp 98.2(O); Pulse Ox 99% on R/A; Weight 70.31 kg; hb Height 5 ft. 5 in. ; Pain 0/10; 15:16 BP 168 / 53; Pulse 76; Resp 18; Pulse Ox 99% on R/A; Pain 8/10; ld1 19:40 BP 169 / 64; Pulse 87; Resp 16 S; Pulse Ox 100% on R/A; lg3 23:39 BP 149 / 58; Pulse 81; Resp 17 S; Temp 97.8(O); Pulse Ox 100% on R/A; lg3 15:11 Body Mass Index 25.79 (70.31 kg, 165.1 cm) hb 15:11 Pain Scale: Adult hb 15:16 Pain Scale: Adult ld1 MDM: 15:07 Patient medically screened. sb4 18:48 ED course: attempted to call Dr. Álvarez, went straight to voicemail. sb4 19:46 Transition of care: Care assumed from Shivam Rodriguez MD. ms3 21:18 Differential diagnosis: UTI, urinary retention, Hematuria. Data reviewed: vital signs, ms3 nurses notes, lab test result(s), radiologic studies, and as a result, I will transfer. Counseling: I had a detailed discussion with the patient and/or guardian regarding the historical points, exam findings, and any diagnostic results supporting the discharge/admit diagnosis, lab results, radiology results, the need to transfer to another facility, [facility] does not immediately have the required specialist. 21:44 Consideration of Admission/Observation Will transfer patient. Management of patient was ms3 discussed with the following: Hospitalist: Dr Metzger. Compensation Expert: Urology- Dr Adler. ED course: Discussed necessity for transfer for Urology with patient and his . They understand/ agree with plan.. 03/20 15:19 Order name: CBC with Diff; Complete Time: 17:05 sb4 03/20 15:19 Order name: CMP; Complete Time: 16:24 sb4 03/20 15:19 Order name: Lipase; Complete Time: 16:24 sb4 03/20 15:19 Order name: Urinalysis w/ reflexes; Complete Time: 17:55 sb4 03/20 15:19 Order name: PT-INR; Complete Time: 16:24 sb4 03/20 15:19 Order name: Ptt, Activated; Complete Time: 16:24 sb4 03/20 17:45 Order name: Urine Culture EDMS 03/20 16:43 Order name: Abdomen ; Complete Time: 17:09 EDMS 03/20 15:19 Order name: IV Saline Lock; Complete Time: 15:40 sb4 03/20 15:19 Order name: Labs collected and sent; Complete Time: 15:40 sb4 03/20 16:17 Order name: Misc. Order: recollect CBC; Complete Time: 16:33 la1 03/20 17:44 Order name: Foreman-Three way; Complete Time: 18:15 sb4 03/20 17:44 Order name: Bladder Irrigation; Complete Time: 18:15 sb4 Administered Medications: 18:30 Not Given (Physician Discretion; No IV access- ): ns 0.9% 1000 ml IV at 1 bolus Per ld1 protocol; 1000 mL bolus Disposition: 21:18 Co-signature as Attending Physician, Chase Mesa DO. ms3 03/21 09:07 Chart complete. sb4 Disposition Summary: 03/20/24 21:18 Transfer Ordered Notes: Transfer Location: [facility] ms3 Reason: Higher level of care ms3 Condition: Stable ms3 Problem: new ms3 Symptoms: are unchanged ms3 Accepting Physician: Dr Metzger(03/20/24 23:41) lg3 Diagnosis - Gross hematuria ms3 - Kidney stone ms3 - Other hydronephrosis ms3 Forms: - Medication Reconciliation Form ms3 - SBAR form ms3 Signatures: Dispatcher [employer] EDMS Garland Stark, ROLL FORGER-C ROLL FORGER-Cla1 Janki Hong, RN RN Nora Palma RN RN lg3 Bonita, Chase, DO DO ms3 Sue Mesa RN RN ld1 Kathy Craig, PA-C PA-C sb4 Corrections: (The following items were deleted from the chart) 03/20 15:19 15:19 Abdomen Pelvis W Con+CT.RAD.BRZ ordered. EDWA EDMS 23:41 21:18 Dr Metzger ms3 lg3
--- NOTE | 2024-03-20 21:18 | ER ---
Nurse's Notes [facility] Name: Nnamdi Flores III Age: 78 yrs Sex: Male : 1945 Arrival Date: 03/20/2024 Time: 14:59 Bed 19 Private MD: Diagnosis: Gross hematuria;Kidney stone;Other hydronephrosis Presentation: 03/20 15:11 Chief complaint: Blood in urine since this morning. Had stent placed by Dr. Álvarez yesterday. Coronavirus screen: At this time, the client does not indicate any symptoms associated with coronavirus-19. Ebola Screen: No symptoms or risks identified at this time. Initial Sepsis Screen: Does the patient meet any 2 criteria? No. Patient's initial sepsis screen is negative. Does the patient have a suspected source of infection? No. Patient's initial sepsis screen is negative. Risk Assessment: Do you want to hurt yourself or someone else? Patient reports no desire to harm self or others. Onset of symptoms was March 20, 2024. 15:11 Method Of Arrival: Ambulatory 15:11 Acuity: DAMION 3 hb Triage Assessment: 15:14 General: Appears in no apparent distress. comfortable, Behavior is calm, cooperative, ld1 appropriate for age. Pain: Complains of pain in pelvis Pain does not radiate. Pain currently is 8 out of 10 on a pain scale. Quality of pain is described as throbbing, Pain began suddenly, Is intermittent. EENT: No signs and/or symptoms were reported regarding the EENT system. Neuro: Level of Consciousness is awake, alert, obeys commands, Oriented to person, place, time, situation. Cardiovascular: Capillary refill < 3 seconds Patient's skin is warm and dry. Respiratory: Airway is patent Respiratory effort is even, unlabored. GI: Abdomen is round non-distended. : Urine is kiran blood, Reports pain in right flank(s). Derm: No signs and/or symptoms reported regarding the dermatologic system. Musculoskeletal: No signs and/or symptoms reported regarding the musculoskeletal system. Historical: - Allergies: 15:13 Morphine; hb 15:13 Sulfa (Sulfonamide Antibiotics); hb 15:14 Morphine; ld1 15:14 Sulfa (Sulfonamide Antibiotics); ld1 - Home Meds: 15:13 Oxybutynin Chloride Oral daily [Active]; aspirin 81 mg Oral tablet,chewable daily hb [Active]; Plavix 75 mg Oral tablet daily [Active]; Metoprolol Tartrate Oral [Active]; losartan oral [Active]; Glimepiride Oral [Active]; - PMHx: 15:13 BILE DUCT CANCER (Hypothyroidism); BPH; coronary atherosclerosis; Hypertensive hb disorder; Hypothyroidism; 15:14 BILE DUCT CANCER (Hypothyroidism); BPH; coronary atherosclerosis; Hypertensive ld1 disorder; Hypothyroidism; - Immunization history:: Adult Immunizations up to date, Adult Immunizations up to date. - Infectious Disease History:: Denies. Denies. - Social history:: Smoking status: Patient denies any tobacco usage or history of. Smoking status: Patient denies any tobacco usage or history of. Screenin:16 [facility] ED Fall Risk Assessment (Adult) History of falling in the last 3 months, ld1 including since admission No falls in past 3 months (0 pts). Abuse screen: Denies threats or abuse. Denies injuries from another. Nutritional screening: No deficits noted. Tuberculosis screening: No symptoms or risk factors identified. Assessment: 15:16 Reassessment: See triage assessmnet. ld1 19:40 General: Appears in no apparent distress. uncomfortable, Behavior is calm, cooperative. lg3 Pain: Complains of pain in pelvis Pain does not radiate. Pain currently is 4 out of 10 on a pain scale. Quality of pain is described as pressure. Neuro: No deficits noted. Edmonds Agitation-Sedation Scale (RASS): 0 - Alert and Calm Level of Consciousness is awake, alert, obeys commands, Oriented to person, place, time, situation. Cardiovascular: No deficits noted. Denies chest pain, shortness of breath, Capillary refill < 3 seconds Clubbing of nail beds is absent JVD is absent Patient's skin is warm and dry. Respiratory: No deficits noted. Airway is patent Respiratory effort is even, unlabored, Respiratory pattern is regular, symmetrical. GI: No deficits noted. No signs and/or symptoms were reported involving the gastrointestinal system. Abdomen is round non-distended. : Foreman in place to gravity drainage Urine is blood tinged, continuous irrigation in place. EENT: No deficits noted. No signs and/or symptoms were reported regarding the EENT system. Derm: No deficits noted. No signs and/or symptoms reported regarding the dermatologic system. Skin is intact, is healthy with good turgor, Skin is dry, Skin is normal, Skin temperature is warm. Musculoskeletal: No deficits noted. No signs and/or symptoms reported regarding the musculoskeletal system. Circulation, motion, and sensation intact. Range of motion: intact in all extremities. 23:39 Reassessment: Patient appears in no apparent distress at this time. No changes from lg3 previously documented assessment. Patient and/or family updated on plan of care and expected duration. Pain level reassessed. Patient is alert, oriented x 3, equal unlabored respirations, skin warm/dry/pink. Patient denies pain at this time. Vital Signs: 15:11 BP 168 / 53; Pulse 88; Resp 16; Temp 98.2(O); Pulse Ox 99% on R/A; Weight 70.31 kg; hb Height 5 ft. 5 in. ; Pain 0/10; 15:16 BP 168 / 53; Pulse 76; Resp 18; Pulse Ox 99% on R/A; Pain 8/10; ld1 19:40 BP 169 / 64; Pulse 87; Resp 16 S; Pulse Ox 100% on R/A; lg3 23:39 BP 149 / 58; Pulse 81; Resp 17 S; Temp 97.8(O); Pulse Ox 100% on R/A; lg3 15:11 Body Mass Index 25.79 (70.31 kg, 165.1 cm) hb 15:11 Pain Scale: Adult hb 15:16 Pain Scale: Adult ld1 ED Course: 15:01 Patient arrived in ED. ra3 15:05 Kathy Craig [facility]C [facility]. sb4 15:05 Shivam Rodriguez MD is Attending Physician. sb4 15:13 Triage completed. hb 15:14 Sue Mesa, TORREY is Primary Nurse. ld1 15:14 Arm band placed on right wrist. ld1 15:15 Arm band placed on. hb 15:16 Patient has correct armband on for positive identification. Placed in gown. Bed in low ld1 position. Call light in reach. Side rails up X2. telemetry monitor on. Pulse ox on. NIBP on. Door closed. Noise minimized. Warm blanket given. 15:16 No provider procedures requiring assistance completed. ld1 15:40 Missed attempt(s): 20 gauge in right forearm. ld1 16:25 Urinalysis w/ reflexes Sent. ld1 16:30 Missed attempt(s): 22 gauge in left forearm. kc6 16:49 3-way catheter inserted, using sterile technique, 20 Fr. Specimen obtained. ld1 16:49 Bladder irrigated via Foreman with 2 liter returned blood tinged urine. ld1 16:58 Abdomen In Process Unspecified. EDMS 19:40 Warm blanket given. Pillow given. PO fluids given. Family accompanied patient. lg3 19:40 Bladder irrigated via Foreman with continuous normal saline returned blood tinged urine lg3 Patient tolerated well. 19:46 Attending Physician role handed off by Shivam Rodriguez MD ms3 19:46 Chase Mesa DO is Attending Physician. ms3 22:38 Missed attempt(s): 20 gauge in right forearm. Bleeding controlled, band aid applied, lg3 catheter tip intact. 22:39 Inserted saline lock: 24 gauge in right wrist, using aseptic technique. lg3 23:39 Patient transferred, IV remains in place. lg3 Administered Medications: 18:30 Not Given (Physician Discretion; No IV access- ): ns 0.9% 1000 ml IV at 1 bolus Per ld1 protocol; 1000 mL bolus Medication: 15:16 VIS not applicable for this client. ld1 Outcome: 21:18 ER care complete, transfer ordered by . ms3 23:40 Transferred by ground EMS to [facility], Transfer form completed. lg3 X-rays sent w/ patient. 23:40 Condition: stable 23:40 Instructed on the need for transfer, Demonstrated understanding of instructions, 23:41 Patient left the ED. lg3 Signatures: Dispatcher [employer] EDMS Janki Hong RN TORREY Nora Palma RN RN lg3 Chase Mesa DO DO ms3 Sue Mesa RN RN ld1 Cynthia Tang RN RN adama6 Kathy Craig PADenys PADenys [email or web address] Dori Mario ra3
[2024-03-21] VITALS: BP 149/58; TEMP 97.8; O2SAT 100
== END 2024-03-20 23:41 | disposition short-term general hospital (02) ==
LOC: ER 14:59
DX: N20.0 Calculus of kidney (principal); N13.39 Other hydronephrosis; Z96.89 Presence of other specified functional implants; Z88.2 Allergy status to sulfonamides; Z88.5 Allergy status to narcotic agent; Z79.01 Long term (current) use of anticoagulants; Z79.82 Long term (current) use of aspirin
CPT/HCPCS: 36415; 51700; 74176; 80053; 81001; 81003; 83690; 85025; 85610; 85730; 87086; 87088; 99285

== ENCOUNTER 2024-05-04 21:30 | Emergency (ER) | payer OTHER ==
--- OUTSIDE RECORDS SUMMARY | 2024-05-04 21:34 | XMS REPORT | Clinical Summary ---
Author Name Unknown Organization [facility] [place] Address [address] [place] [address] Care Team Providers Care Shipping Clerk Crating Name Role Phone Al Carrasco MD Unavailable [phone] Dashawn Sutherland MD Primary Care Provider [phone] Ynes RUBI MD, Al Hay Unavailable [phone] Allergies Active Allergy Reactions Criticality Noted Date Comments Morphine Anaphylaxis,Other (S ee Comments),Shortness Of Breath High 11/21/2015 Hypotention Sulfur Nausea And Vomiting High 12/08/2023 Medications Medication Sig Dispensed Refills Start Date End Date Status levothyroxine (SYNTHROID, LEVOTHROID) 75 mcg tablet Take 1 tablet (75 mcg) by mouth daily. 11/20/2023 Active metoprolol tartrate (LOPRESSOR) 50 mg tablet Take 1 tablet (50 mg) by mouth daily. 06/09/2023 Active losartan (COZAAR) 100 mg tablet Take 1 tablet (100 mg) by mouth daily. Taking 50mg am/ and 50mg at night 06/09/2023 Active glimepiride (AMARYL) 2 mg tablet Take 2 tablets (4 mg) by mouth twice daily. 11/20/2023 Active latanoprost (XALATAN) 0.005% ophthalmic solution Administer 1 drop to both eyes daily. 10/16/2023 Active tamsulosin (FLOMAX) 0.4 mg 24 hr capsule Take 1 capsule (0.4 mg) by mouth daily. 06/10/2023 Active simvastatin (ZOCOR) 20 mg tablet Take 2 tablets (40 mg) by mouth at bedtime. 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 30 capsule 03/01/2024 Active clopidogrel (PLAVIX) 75 mg tablet Take 1 tablet (75 mg) by mouth daily. Active OMEGA-3 FATTY ACIDS-VITAMIN E ORAL Take 1 g by mouth. 4 Discontinued ursodiol (ACTIGALL) 500 mg tablet Take 1 tablet (500 mg) by mouth 3 (three) times a day. 12/10/2023 4 Discontinued carvedilol (COREG) 12.5 mg tablet Take 1 tablet (12.5 mg) by mouth daily. 12/10/2023 4 Discontinued pantoprazole (PROTONIX) 40 mg EC tablet Take 1 tablet (40 mg) by mouth every morning before breakfast. 12/25/2023 4 docusate sodium (COLACE) 100 mg capsule Take 1 capsule (100 mg) by mouth twice daily. 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, 7th [place] [address] Marbella Pereira PA Cholangiocarcinoma of biliary tract, NOS (Primary Dx) 05/04/2024 Travel 04/28/2024 Documentation Cardiopulmonary Center [facility], 6th [place] [address] Gem Schmidt 04/26/2024 2:00 PM CDT [facility]medicine [facility] [address] [place] [address] Dashawn Sutherland MD Cholangiocarcinoma of biliary tract, NOS (Primary Dx) 04/26/2024 Orders Only [facility] [address] [place] [address] Marbella Pereira PA 04/26/2024 Telephone [facility] [place] [facility] [address] [facility] [place], Floor 7 [place] [address] Karen Helton RN 04/20/2024 9:00 AM CDT Infusion [facility] [address] [place] [address] Marbella Peerira PA Tran, Nancy K, RN Cholangiocarcinoma of biliary tract, NOS (Primary Dx) 04/20/2024 Travel 04/09/2024 10:30 AM CDT Consult [facility] [address] [place] [address], 7th [place] [address] Al Quick IV, MD Calculus of kidney and ureter; Cholangiocarcinoma of biliary tract, NOS 04/09/2024 Prep for Surgery [facility] [address] [place] [address], 7th [place] [address] Tamara Schmid APRN Calculus of ureter (Primary Dx) 04/09/2024 Travel 04/06/2024 2:10 PM CDT Ancillary Procedure [address] [place] [address] Marbella Pereira PA Cholangiocarcinoma of biliary tract, NOS 04/06/2024 8:00 AM CDT Infusion [facility] [address] [place] [address], [place] [address] Marbella Pereira PA Thomas, Alice, RN Cholangiocarcinoma of biliary tract, NOS (Primary Dx) 04/06/2024 Travel 03/31/2024 10:00 AM CDT Follow-Up [facility] [address] [place] [address] Dashawn Sutherland MD Cholangiocarcinoma of biliary tract, NOS (Primary Dx) 03/31/2024 Travel 03/25/2024 Orders Only [facility] [address] [place] [address] Marbella Pereira PA Cholangiocarcinoma of biliary tract, NOS (Primary Dx) 03/11/2024 Orders Only [facility] [address] [place] [address], 7th [place] [address] Marbella Pereira PA 03/09/2024 9:00 AM CDT Infusion [facility] - [address] [address] Marbella Pereira PA Tran, Nancy K, RN Cholangiocarcinoma of biliary tract, NOS (Primary Dx) 03/09/2024 Travel 03/01/2024 10:30 AM CDT Follow-Up [facility] [address] [place] [address] Dashawn Sutherland MD Cholangiocarcinoma of biliary tract, NOS (Primary Dx); 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 03/01/2024 Travel 02/24/2024 9:00 AM CDT Infusion [address] [place] [address] Marbella Pereira PA Brioso, Cecille, RN Cholangiocarcinoma of biliary tract, NOS (Primary Dx) 02/24/2024 Orders Only [facility] [address] [facility] Main Bldg, 7th [place] [address] Dashawn Sutherland MD Cholangiocarcinoma of biliary tract, NOS (Primary Dx) 02/24/2024 Travel 02/10/2024 9:00 AM CDT Infusion [facility] - [address] [address] Dashawn Sutherland MD Thomas, Alice, TORREY Cholangiocarcinoma of biliary tract, NOS (Primary Dx) 02/10/2024 Travel 02/06/2024 Orders Only [facility] [address] [place] [address] Marbella Pereira PA Cholangiocarcinoma of biliary tract, NOS (Primary Dx); Hydronephrosis, not otherwise specified; Calculus of ureter 02/06/2024 Orders Only [facility] [address] [place] [address] Marbella Pereira PA Cholangiocarcinoma of biliary tract, NOS (Primary Dx) 02/05/2024 10:20 AM CDT Ancillary Procedure [address] [address] Marbella Pereira PA Cholangiocarcinoma of biliary tract, NOS; Right lower quadrant pain 02/05/2024 Travel 02/03/2024 Orders Only [facility] [address] [facility] Main Bldg, 7th [place] [address] Marbella Pereira PA 02/02/2024 2:00 PM CDT Telemedicine [facility] [address] [place] [address] Dashawn Sutherland MD Right lower quadrant pain (Primary Dx); Cholangiocarcinoma of biliary tract, NOS 01/30/2024 Orders Only [facility] [address] [facility] Main Bldg, 7th [place] [address] Reggie Suarez, [facility] 01/28/2024 Telephone [facility] [address] [address] Cameron Caban Jr., RN Follow-up 01/27/2024 10:00 AM CDT Infusion [facility] [address] [place] [address] Dashawn Sutherland MD Alegado, Reynaldo F Jr., RN Cholangiocarcinoma of biliary tract, NOS (Primary Dx) 01/27/2024 Documentation Cardiopulmonary Center [address] Main Bldg, 6th [place] [address] Gem Schmidt 01/27/2024 Travel 01/26/2024 1:15 PM CDT Ancillary Procedure [address] [address] Marbella Pereira PA Cholangiocarcinoma of biliary tract, NOS 01/26/2024 Documentation [facility] [address] [place] [address] Marbella Pereira PA 01/26/2024 Orders Only [facility] [address] [place] [address] Marbella Pereira PA 01/26/2024 Travel 01/20/2024 Orders Only [facility] [address] [place] [address] Marbella Pereira PA Cholangiocarcinoma of biliary tract, NOS (Primary Dx) 01/20/2024 Orders Only [facility] [address] Main Bldg, 7th [place] [address] Marbella Pereira PA Cholangiocarcinoma of biliary tract, NOS (Primary Dx) 01/20/2024 Documentation Cardiopulmonary Center [address] Main Bldg, 6th [place] [address] Gem Schmidt 01/20/2024 Orders Only Card[facility] Center [address] Main Bldg, 6th [place] [address] Jose Finch MD Immunotherapy for cancer (Primary Dx) 01/20/2024 Orders Only [facility] [address] [place] [address] Marbella Pereira PA 01/19/2024 3:00 PM FLOORS BUFFER Follow-Up [facility] [address] [place] [address] Dashawn Sutherland MD Cholangiocarcinoma of biliary tract, NOS (Primary Dx) 01/19/2024 Orders Only [facility] [address] [facility], 7th [place] [address] Ney Sierra, [facility] 01/19/2024 Travel 01/16/2024 5:00 PM FLOORS BUFFER - 01/16/2024 11:59 PM FLOORS BUFFER Hospital Encounter [facility] [address] [facility], 8th [place] [address] Dashawn Sutherland MD Zarate, Iris Davidson, railway station manager Disposition: Home 01/16/2024 4:15 PM FLOORS BUFFER Ancillary Procedure [facility] MRI [address] [facility], 4th [place] [address] Marbella Pereira PA Cholangiocarcinoma of biliary tract, NOS 01/16/2024 Travel 01/14/[address] [address] Isreal Ngo, RN 01/14/2024 Orders Only [facility] [address] [place] [address] Marbella Pereira PA Cholangiocarcinoma of biliary tract, NOS (Primary Dx) 01/14/2024 Travel 01/14/2024 Lab Requisition [facility] Ryan Loredo MD Raza, Roshan 01/14/2024 Lab Requisition [facility] Ryan Loredo MD Jain, MD Shilpa 01/12/[address] [address] Magnolia Spencer MA 01/09/2024 11:30 PM FLOORS BUFFER Ancillary Procedure [facility] [address] [place] [address] Dashawn Sutherland MD Cancer 01/09/2024 11:25 PM FLOORS BUFFER Ancillary Procedure [facility] [address] [place] [address] Dashawn Sutherland MD Cancer 01/09/2024 11:20 PM FLOORS BUFFER Ancillary Procedure [facility] [address] [place] [address] Dashawn Sutherland MD Cancer 01/09/2024 11:15 PM FLOORS BUFFER Ancillary Procedure [facility] [address] [place] [address] Dashawn Sutherland MD Cancer 01/09/2024 Orders Only [facility] [address] [place] [address] Marbella Pereira PA 01/08/2024 Orders Only [facility] [address] [place] [address] Marbella Pereira PA Cholangiocarcinoma of biliary tract, NOS (Primary Dx) 01/07/2024 2:35 PM FLOORS BUFFER Ancillary Procedure [address] [address] Dashawn Sutherland MD Cholangiocarcinoma of biliary tract, NOS 01/07/2024 1:00 PM FLOORS BUFFER Office Visit [facility] On[facility] [address] [place] [address] Dashawn Sutherland MD Cholangiocarcinoma of biliary tract, NOS (Primary Dx) 01/07/2024 12:30 PM FLOORS BUFFER NPR [facility] PATIENT ACCESS 01/07/2024 Orders Only [facility] [address] [place] [address] Marbella Pereira PA Cholangiocarcinoma of biliary tract, NOS (Primary Dx) 01/07/2024 Travel 01/05/2024 Orders Only [facility] [address] [place] [address] dg, 7th [place] [address] Dashawn Sutherland MD Cholangiocarcinoma of biliary tract, NOS (Primary Dx) 12/26/2023 [facility] [address] [facility] Main dg, 7th [place] [address] Kristine Farias, RN after 05/05/2023 Surgical History Surgery Date Site/Laterality Comments COLONOSCOPY 2019 Clear CORONARY ARTERY BYPASS GRAFT 2013 URETERAL STENT PLACEMENT Right CORONARY ANGIOPLASTY WITH STENT PLACEMENT 03/10/2024 x2 CHOLECYSTECTOMY 06/09/2023 CATARACT EXTRACTION EXTRACAPSULAR W/ INTRAOCULAR LENS IMPLANTATION 11/17/2022 - 11/16/2023 Bilateral 08/2023 and 10/2023 BILE DUCT STENT PLACEMENT 12/23/2023 metal stent Medical History Medical History Date Comments Myocardial infarction 10/2013 Hyperlipidemia 2010 Hearing loss 2010 Wears hearing ai ds 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 Sexual dysfunction 2016 Malignant neoplasm of prostate 2016 Squamous cell carcinoma in situ of skin 2019 Basal cell carcinoma of skin 2019 Anticoagulant therapy Myocardial infarction 02/2024 mild heart attack, no residual effect Prediabetes Cholangiocarcinoma Essential (primary) hypertension Neuropathy Hypothyroidism Stented coronary artery 03/10/2024 Coronary bypass graft finding Family History Medical History Relation Name Comments [...] Sign Reading Time Taken Comments Blood Pressure 142/74 05/04/2024 12:35 PM CDT Pulse 86 05/04/2024 12:35 PM CDT Temperature 37 C (98.6 F) 05/04/2024 9:48 AM CDT Respiratory Rate 18 05/04/2024 9:48 AM CDT Oxygen Saturation 98% 05/04/2024 9:48 AM CDT Inhaled Oxygen Concentration - - Weight 74.3 kg (163 lb 12.8 oz) 05/04/2024 9:46 AM CDT Height 162.5 cm (5' 3.98") 04/09/2024 9:16 AM CD T Body Mass Index 28.14 04/09/2024 9:16 AM CDT Plan of Treatment Upcoming Encounters Date Type Department Care Team (Latest Contact Info) Description 05/12/2024 8:40 AM CDT Consult Cardiopulmonary Center [address] [place] [address], [facility] [place] [address] Jose Finch MD [address] [place] [phone] [email or web address] 05/12/2024 9:45 AM CDT Consult Perioperative Evaluation and Management [address] [place] [address], [facility] [place] [address] Al Quick IV, MD [address] [place] [phone] [email or web address] 05/12/2024 11:00 AM CDT POEM Appointments [facility] [address] [place] [address], [address] [place] [address] [place] [address] Dashawn Sutherland MD [address] [place] [address] [email or web address] 05/18/2024 8:00 AM CDT Lab MD [place] [facility] [address] [address] Marbella Pereira PA [address] [place] [phone] [email or web address] 05/18/2024 9:00 AM CDT Infusion MD [facility] - Infusion [address] [place] [address] Marbella Pereira PA [address] [place] [address] [email or web address] 05/24/2024 9:45 AM CDT Hospital Encounter MAIN OR [address] [place] [address] Al Quick IV, MD [address] [place] [phone] [email or web address] 05/24/2024 9:45 AM CDT - 05/24/2024 1:10 PM CDT Surgery MAIN OR [address] [place] [address] Al Quick IV, MD [address] [place] [address] [email or web address] CYSTOURETHROSCOPY WITH URETEROROSCOPY &/OR PYELOSCOPY, W/ LITHOTRIPSY AND INSERTION OF INDWELLING STENT 05/31/2024 10:00 AM CDT Follow-Up MD [facility] - Medical Oncology [address] [place] [address] Dashawn Sutherland MD [address] [place] [address] [email or web address] 06/01/2024 8:00 AM CDT Lab MD [facility] [address] [place] [address] Marbella Pereira PA [address] [place] [address] [email or web address] 06/01/2024 9:00 AM CDT Infusion MD [facility] [place] - Infusion [address] [place] [address] Marbella Pereira PA [address] [place] [address] [email or web address] 06/04/2024 10:30 AM CDT Telemedicine [facility] [place] - [facility] [address] [facility], Floor 7 [place] [address] [place] [address] [place] [phone] [email or web address] 06/15/2024 8:00 AM CDT Lab MD [facility] [place] [address] [place] [address] Marbella Pereira PA [address] [place] [phone] [email or web address] 06/15/2024 9:00 AM CDT Infusion MD [facility] [place] [facility] [address] [place] [address] Marbella Pereira PA [facility] [place] [address] [email or web address] 06/29/2024 8:00 AM CDT Lab MD [facility] [place] [address] [place] [address] Marbella Pereira PA [address] [place] [address] [email or web address] 06/29/2024 9:00 AM CDT Infusion MD [facility] [place] - Infusion [address] [place] [address] Marbella Pereira PA [address] [place] [address] [email or web address] 07/13/2024 8:00 AM CDT Lab MD [facility] [place] [facility] [address] [place] [address] Marbella Pereira PA [address] [place] [address] [email or web address] 07/13/2024 9:00 AM CDT Infusion MD [facility] [place] - Infusion [address] [place] [address] Marbella Pereira PA [address] [place] [address] [email or web address] Scheduled Procedures Name Priority Associated Diagnoses Date/Ti me CYSTOURETHROSCOPY WITH URETEROROSCOPY &/OR PYELOSCOPY, W/ LITHOTRIPSY AND INSERTION OF INDWELLING STENT Calculus of ureter 05/24/2024 9:45 AM CDT Health Maintenance Due Date Last Done Comments COVID-19 Vaccine (3 - Moderna risk series) 01/23/2021 12/26/2020, 11/29/2020 Influenza Vaccine 07/18/2024 Medical Devices Implanted Type Area Chemical Test Engineer Device Identifier Shelf Expiration Date Model / Serial / Lot Cardiac Stent Stent Description:Per MD [employer] policy conditional Biliary Stent-01/14/2024 Implanted:2023 (Quantity not on file) Stent Bile Duct Description:Placed in 024 at [facility], Per in Dr.Brown pena to proceed up to 3T on normal operating mode. Cleared on 01/16/24 @4:20pm Procedures Procedure Name Priority Date/Time Associated Diagnosis Comments DIFFERENTIAL Routine 05/04/2024 8:42 AM CDT Cholangiocarcinoma of biliary tract, NOS .CBC Routine 05/04/2024 8:42 AM CDT Cholangiocarcinoma of biliary tract, NOS CARCINOEMBRYONIC ANTIGEN Routine 024 8:42 AM CDT Cholangiocarcinoma of biliary tract, NOS CARBOHYDRATE ANTIGEN 19-9 Routine 05/04/2024 8:42 AM CDT Cholangiocarcinoma of biliary tract, NOS FREE THYROXINE Routine 05/04/2024 8:42 AM CDT Cholangiocarcinoma of biliary tract, NOS THYROID STIMULATING HORMONE Routine 05/04/2024 8:42 AM CDT Cholangiocarcinoma of biliary tract, NOS COMPLETE BLOOD COUNT W/ DIFFERENTIAL Routine 05/04/2024 8:42 AM CDT Cholangiocarcinoma of biliary tract, NOS COMPREHENSIVE METABOLIC PANEL Routine 05/04/2024 8:42 AM CDT Cholangiocarcinoma of biliary tract, NOS .CBC Routine 04/20/2024 8:22 AM CDT Cholangiocarcinoma of biliary tract, NOS COMPLETE BLOOD COUNT W/ DIFFERENTIAL Routine 04/20/2024 8:22 AM CDT Cholangiocarcinoma of biliary tract, NOS COMPREHENSIVE METABOLIC PANEL Routine 04/20/2024 8:22 AM CDT Cholangiocarcinoma of biliary tract, NOS CT CHEST ABDOMEN PELVIS W WO CONTRAST Routine 04/06/2024 3:12 PM CDT Cholangiocarcinoma of biliary tract, NOS DIFFERENTIAL Routine 04/06/2024 6:46 AM CDT Cholangiocarcinoma of biliary tract, NOS .CBC Routine 04/06/2024 6:46 AM CDT Cholangiocarcinoma of biliary tract, NOS GALECTIN 3 Routine 04/06/2024 6:46 AM CDT Cholangiocarcinoma of biliary tract, NOS CARCINOEMBRYONIC ANTIGEN Routine 024 6:46 AM CDT Cholangiocarcinoma of biliary tract, NOS CARBOHYDRATE ANTIGEN 19-9 Routine 04/06/2024 6:46 AM CDT Cholangiocarcinoma of biliary tract, NOS FREE THYROXINE Routine 04/06/2024 6:46 AM CDT Cholangiocarcinoma of biliary tract, NOS THYROID STIMULATING HORMONE Routine 04/06/2024 6:46 AM CDT Cholangiocarcinoma of biliary tract, NOS COMPLETE BLOOD COUNT W/ DIFFERENTIAL Routine 04/06/2024 6:46 AM CDT Cholangiocarcinoma of biliary tract, NOS COMPREHENSIVE METABOLIC PANEL Routine 04/06/2024 6:46 AM CDT Cholangiocarcinoma of biliary tract, NOS DIFFERENTIAL Routine 03/31/2024 8:56 AM CDT Cholangiocarcinoma of biliary tract, NOS .CBC Routine 03/31/2024 8:56 AM CDT Cholangiocarcinoma of biliary tract, NOS CARBOHYDRATE ANTIGEN 19-9 Routine 03/31/2024 8:56 AM CDT Cholangiocarcinoma of biliary tract, NOS COMPREHENSIVE METABOLIC PANEL Routine 03/31/2024 8:56 AM CDT Cholangiocarcinoma of biliary tract, NOS COMPLETE BLOOD COUNT W/ DIFFERENTIAL Routine 03/31/2024 8:56 AM CDT Cholangiocarcinoma of biliary tract, NOS .CBC Routine 03/09/2024 8:13 AM CDT Cholangiocarcinoma [...] for cancer .CBC Routine 01/19/2024 2:09 PM FLOORS BUFFER Cholangiocarcinoma of biliary tract, NOS COMPREHENSIVE METABOLIC PANEL Routine 01/19/2024 2:09 PM FLOORS BUFFER Cholangiocarcinoma of biliary tract, NOS COMPLETE BLOOD COUNT W/ DIFFERENTIAL Routine 01/19/2024 2:09 PM FLOORS BUFFER Cholangiocarcinoma of biliary tract, NOS MRI ABDOMEN & PELVIS W AND WO CONTRAST Routine 01/16/2024 6:53 PM FLOORS BUFFER Cholangiocarcinoma of biliary tract, NOS .CBC Routine 01/14/2024 9:53 AM FLOORS BUFFER Cholangiocarcinoma of biliary tract, NOS CARBOHYDRATE ANTIGEN 19-9 Routine 01/14/2024 9:53 AM FLOORS BUFFER Cholangiocarcinoma of biliary tract, NOS COMPREHENSIVE METABOLIC PANEL Routine 01/14/2024 9:53 AM FLOORS BUFFER Cholangiocarcinoma of biliary tract, NOS COMPLETE BLOOD COUNT W/ DIFFERENTIAL Routine 01/14/2024 9:53 AM FLOORS BUFFER Cholangiocarcinoma of biliary tract, NOS CT CHEST WO CONTRAST Routine 01/07/2024 4:49 PM FLOORS BUFFER Cholangiocarcinoma of biliary tract, NOS POC CREATININE Routine 01/07/2024 3:57 PM FLOORS BUFFER OSI INTERVENTIONAL Routine 12/19/2023 11 :58 PM FLOORS BUFFER Cancer OSI INTERVENTIONAL Routine 12/09/2023 11 :57 PM FLOORS BUFFER Cancer OSI CT CHEST Routine 12/09/2023 11:57 PM FLOORS BUFFER Cancer OSI CT ABDOMEN AND PELVIS Routine 12/09/2023 11:57 PM FLOORS BUFFER Cancer PATHOLOGY OUTSIDE INTERPRETATION Routine 12/09/2023 PATHOLOGY OUTSIDE INTERPRETATION Routine 12/09/2023 after 05/05/2023 Results * (ABNORMAL) .CBC (05/04/2024 8:42 AM CDT) Only the most recent of11 resultswithin the time period is included. White Blood Cell 9.0 4.1 - 10.5 K/uL 05/04/2024 9:25 AM [facility] Comment:This result was prev iously suppressed from the chart. Red Blood Cell 3.27(L) 4.30 - 6.04 M/uL 05/04/2024 9:25 AM [facility] Comment:This result was prev iously suppressed from the chart. Hemoglobin 10.2(L) 13.3 - 17.4 g/dL 05/04/2024 9:25 AM [facility] Comment:This result was prev iously suppressed from the chart. Hematocrit 31.1(L) 39.5 - 51.8 % 05/04/2024 9:25 AM [facility] Comment:This result was prev iously suppressed from the chart. Mean Cell Volume 95 82 - 99 fL 05/04/2024 9:25 AM [facility] Comment:This result was prev iously suppressed from the chart. Mean Cell Hemoglobin 31.2 26.6 - 33.2 pg 05/04/2024 9:25 AM [facility] Comment:This result was prev iously suppressed from the chart. Mean Cell Hemoglobin Concentration 32.8 31.1 - 35.2 g/dL 05/04/2024 9:25 AM [facility] Comment:This result was prev iously suppressed from the chart. RDW-SD 55.4(H) 37.5 - 49.7 fL 05/04/2024 9:25 AM [facility] Comment:This result was prev iously suppressed from the chart. Red Cell Diameter Width 16.0(H) 11.6 - 15.5 % 05/04/2024 9:25 AM CDT [facility] Comment:This result was prev iously suppressed from the chart. Platelet 185 160 - 397 K/uL 05/04/2024 9:25 AM [facility] Comment:This result was prev iously suppressed from the chart. Mean Platelet Volume 9.6 9.1 - 12.6 fL 05/04/2024 9:25 AM [facility] Comment:This result was prev iously suppressed from the chart. Blood Peripheral blood specimen / Unknown Port / Unknown 05/04/2024 8:42 AM CDT 05/04/2024 8:49 AM CDT Marbella GRAJEDA LAB BLOOD ORDERABLES [facility] [address], [facility] [address] [place] [address] * (ABNORMAL) Comprehensive Metabolic Panel (05/04/2024 8:42 AM CDT) Only the most recent of11 resultswithin the time period is included. Bilirubin Total <0.3 0.0 - 1.2 mg/dL 05/04/2024 9:16 AM [facility] Comment:Indocyanine Green (I CG) may cause falsely elevated bilirubin results. Total and direct bilirubin must not be measured from samples containing indocyanine green. False elevation of total bilirubin can be seen in patients with IgG concentrations above 28 g/L. eGFR 50(L) >=60 mL/min/1. 73 sq. m 05/04/2024 9:16 AM [facility] Comment: The eGFRcr is calculated [...] G2 fulfill criteria for CKD. Tot Protein 7.8 6.4 - 8.3 gm/dL 05/04/2024 9:16 AM [facility] Calcium Level Total 9.3 8.2 - 10.2 mg/dL 05/04/2024 9:16 AM [facility] Alkaline Phosphatase 150(H) 40 - 129 U/L 05/04/2024 9:16 AM [facility] Albumin Level 3.5 3.5 - 5.2 gm/dL 05/04/2024 9:16 AM [facility] AST 41(H) <=40 U/L 05/04/2024 9:16 AM [facility] ALT 41 <=41 U/L 05/04/2024 9:16 AM [facility] Sodium Level 136 136 - 145 mmol/L 05/04/2024 9:16 AM [facility] Potassium Level 3.9 3.4 - 4.5 mmol/L 05/04/2024 9:16 AM [facility] Chloride 102 98 - 107 mmol/L 05/04/2024 9:16 AM [facility] CO2 19(L) 22 - 29 mmol/L 05/04/2024 9:16 AM [facility] Anion Gap 15(H) 4 - 14 mmol/L 05/04/2024 9:16 AM [facility] Creatinine 1.43(H) 0.67 - 1.17 mg/dL 05/04/2024 9:16 AM [facility] BUN 23 6 - 23 mg/dL 05/04/2024 9:16 AM [facility] Glucose Level 70 70 - 99 mg/dL 05/04/2024 9:16 AM [facility] Comment: Effective 06/12/16, the glucose reference intervals have been updated based on [place] [employer] guidelines (Standards of Medical Care in Diabetes 2016. Diabetes Care 2016; 39: S13-S22). Fasting blood glucose: Normal: 70-99 mg/dL Impaired fasting glucose (increased risk for diabetes or pre-diabetes): 100-125 mg/dL Diabetes mellitus: >/=126 mg/dL Random blood glucose: Normal: 70-199 mg/dL Note: Random glucose >100 mg/dL is associated with increased risk for diabetes. Blood Peripheral blood specimen / Unknown Port / Unknown 05/04/2024 8:42 AM CDT 05/04/2024 8:49 AM CDT Marbella GRAJEDA LAB BLOOD ORDERABLES Performing Organization Address [facility] Co de Phone Number [address], [address] [address] * CA 19-9 (05/04/2024 8:42 AM CDT) Only the most recent of6 resultswithin the time period is included. CA 19-9 29.5 <=35.0 U/mL 05/04/2024 9: 29 AM CDT [facility] Blood Peripheral blood specimen / Unknown Port / Unknown 05/04/2024 8:42 AM CDT 05/04/2024 8:49 AM CDT Narrative [facility] - 05/04/2024 9:29 AM CDT Results greater than 9500 U/mL may not be reliable due to matrix effect with extended dilution as it exceeds the dry ice machine operator's recommended limit. Caution should be exercised when interpreting such values and done in conjunction with clinical context. This test is measured by electrochemiluminescence immunoassay on Parker Kat immunoassay analyzers. Results obtained in different methods are not interchangeable. Marbella GRAJEDA LAB BLOOD ORDERABLES Performing Organization Address [facility] Co de Phone Number [address], [address] [address] * (ABNORMAL) Differential (05/04/2024 8:42 AM CDT) Only the most recent of4 resultswithin the time period is included. Total Cells 100 05/04/2024 9:25 AM [facility] Manual Neutrophil % 63.0 43.2 - 72.7 % 05/04/2024 9:25 AM [facility] Comment:The Neutrophil count includes Bands. Manual Lymphocyte % 8.0(L) 16.8 - 46.2 % 05/04/2024 9:25 AM [facility] Manual Monocyte % 29.0(H) 5.1 - 12.5 % 05/04/2024 9:25 AM [facility] Metamyelocyte % 9:25 AM [facility] Comment:The Metamyelocyte co unt includes Myelocytes. Manual Neutrophil Abs 5.67 1.95 - 7.25 K/uL 05/04/2024 9:25 AM [facility] Manual Lymphocyte Abs 0.72(L) 1.01 - 3.24 K/uL 05/04/2024 9:25 AM [facility] Manual Monocyte Abs 2.61(H) 0.24 - 0.85 K/uL 05/04/2024 9:25 AM [facility] RBC Morphology PRESENT 05/04/2024 9:25 AM [facility] PLT Morph Normal Normal 05/04/2024 9:25 AM [facility] Anisocytosis Present(A) (none) 05/04/2024 9:25 AM [facility] Blood Peripheral blood specimen / Unknown Port / Unknown 05/04/2024 8:42 AM CDT 05/04/2024 8:49 AM CDT Marbella GRAJEDA LAB BLOOD ORDERABLES [facility] [address], [facility] [address] [place] [address] * (ABNORMAL) TSH (05/04/2024 8:42 AM CDT) Only the most recent of4 resultswithin the time period is included. Thyroid Stimulating Hormone 85.68(H) 0.27 - 4.20 mcunit/mL 05/04/2024 9:29 AM [facility] Blood Peripheral blood specimen / Unknown Port / Unknown 05/04/2024 8:42 AM CDT 05/04/2024 8:49 AM CDT Marbella GRAJEDA LAB BLOOD ORDERABLES Performing Organization Address [facility] Co de Phone Number [address], [address] [address] * (ABNORMAL) Free T4 (05/04/2024 8:42 AM CDT) Only the most recent of4 resultswithin the time period is included. T4 (Thyroxine) Free 0.57(L) 0.93 - 1.70 ng/dL 05/04/2024 9:29 AM CDT [facility] Blood Peripheral blood specimen / Unknown Port / Unknown 05/04/2024 8:42 AM CDT 05/04/2024 8:49 AM CDT Marbella GRAJEDA LAB BLOOD ORDERABLES Performing Organization Address [facility] Co de Phone Number [address], [address] [address] * CEA (05/04/2024 8:42 AM CDT) Only the most recent of4 resultswithin the time period is included. Carcinoembryonic Antigen 3.2 <=3.8 ng/mL 05/04/2024 9:29 AM CDT [facility] Blood Peripheral blood specimen / Unknown Port / Unknown 05/04/2024 8:42 AM CDT 05/04/2024 8:49 AM CDT Adin [facility] - 05/04/2024 9:29 AM CDT Reference Ranges (age 20-69 years): Non-smoker: 0.0 - 3.8 ng/mL Smoker: 0.0 - 5.5 ng/mL This test is measured by electrochemiluminescence immunoassay on Parker Kat immunoassay analyzers. Results obtained in different methods are not interchangeable. Marbella GRAJEDA LAB BLOOD ORDERABLES TRISHA ASHRAF [facility] TRISHA ASHRAF [address] [place] [address] [place] [address] * CT Chest Abdomen Pelvis with and without Contrast (04/06/2024 3:12 PM CDT) Anatomical Region Laterality Modality Abdomen, Pelvis, Chest Computed Tomography 04/09/2024 1:58 PM CDT Impressions 04/09/2024 2:28 PM CDT A 1. Stable soft tissue thickening surrounding the hilar confluence of common bile duct, which may represent a combination of tumor infiltration and post treatment changes. 2. Previously seen rim-enhancing lesion in the right liver dome is no longer visualized, possibly a resolving abscess. 2. No evidence of progressive metastatic disease in the chest, abdomen or pelvis. 4. Right ureteral stent terminates in the prostatic urethra. A 1.3 cm calculus in the right lumbar ureter. Or ACTIONABLE ITEMS/RECOMMENDATIONS*: See impression *An Actionable Finding is a finding that may be unrelated to the original reason for imaging but potentially actionable, meaning further investigation may be necessary. The Actionable Findings Vigilance Unit (AFVU) assists medical providers with responding to additional radiologic findings that are unexpected and potentially actionable. Narrative 04/09/2024 2:28 PM CDT FULL RESULT: Examination: CT CHEST ABDOMEN PELVIS W WO CONTRAST on 04/06/2024 3:12 PM. Clinical History: Cholangiocarcinoma of biliary tract, NOS. Indication: restaging. Comparison: CT abdomen pelvis 02/05/2024, MRI abdomen pelvis 01/16/2024 CT chest 01/07/2024. Technique: CT CHEST ABDOMEN PELVIS W WO CONTRAST. Findings: CHEST: The visualized thyroid is unremarkable. A right internal jugular chest port terminates in the right brachiocephalic vein. Lungs and Pleura: Subpleural interstitial thickening and groundglass opacities are present of the lung bases, right greater than left. This likely represents interstitial fibrosis. No suspicious pulmonary nodules are present. No pleural effusion. 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 Lymph nodes: No lymphadenopathy. ABDOMEN AND PELVIS: Hepatobiliary: A metallic stent extends from the segment 3 bile duct to the duodenum. Moderate pneumobilia is present, stable from 02/05/2024. Soft tissue stranding surrounding the hilar confluence and common bile duct may represent a combination of tumor infiltration and posttreatment changes. Soft tissue thickening encases the right hepatic artery and portal bifurcation. Bile duct wall thickening of the hilar confluence may represent the primary tumor. Previously seen rim-enhancing lesion in the right liver dome is no longer visualized, and may represent a resolved abscess. The gallbladder is surgically absent. Spleen: No splenomegaly. Pancreas: No mass or ductal dilatation. Adrenal Glands: No mass. Kidneys, Ureters, Bladder: No hydronephrosis. A right ureteral stent is present with proximal tip in the right renal pelvis and distal tip in the prostatic urethra. A 1.3 cm calculus is lodged in the proximal right ureter (16/241), in similar position from 02/05/2024. Additional nonobstructive calculi are present of bilateral kidneys. Small bilateral renal cysts are present, including hemorrhagic cysts of the right kidney. No bladder mass. Gastrointestinal Tract: There is diverticulosis coli. The partially opacified bowel is otherwise unremarkable. Pelvic Organs: The prostate is mildly enlarged. Peritoneum/Retroperitoneum: No ascites. Lymph Nodes: Small liliya hepatis lymph nodes are stable. For example an 8 mm (6/97) is stable from 12/09/2023 MUSCULOSKELETAL: Degenerative changes are present of the spine. No suspect osseous lesions. Procedure Note Carito Alvarado MD - 04/09/2024 FULL RESULT: Examination: CT CHEST ABDOMEN PELVIS W WO CONTRAST on 04/06/2024 3:12 PM. Clinical History: Cholangiocarcinoma of biliary tract, NOS. Indication: restaging. Comparison: CT abdomen pelvis 02/05/2024, MRI abdomen pelvis 01/16/2024 CTchest 01/07/2024. Technique: CT CHEST ABDOMEN PELVIS W WO CONTRAST. Findings: CHEST: The visualized thyroid is unremarkable. A right internal jugular chestport terminates in the right brachiocephalic vein. Lungs and Pleura: Subpleural interstitial thickening and groundglassopacities are present of the lung bases, right greater than left. Thislikely represents interstitial fibrosis. No suspicious pulmonary nodulesare present. No pleural effusion. Cardiomediastinum: There are post surgical changes of median sternotomyand coronary artery bypass graft. Lymph nodes: No lymphadenopathy. ABDOMEN AND PELVIS: Hepatobiliary: A metallic stent extends from the segment 3 bile duct tothe duodenum. Moderate pneumobilia is present, stable from 02/05/2024.Soft tissue stranding surrounding the hilar confluence and common bileduct may represent a combination of tumor infiltration and posttreatmentchanges. Soft tissue thickening encases the right hepatic artery andportal bifurcation. Bile duct wall thickening of the hilar confluence mayrepresent the primary tumor. Previously seen rim-enhancing lesion in theright liver dome is no longer visualized, and may represent a resolvedabscess. The gallbladder is surgically absent. Spleen: No splenomegaly. Pancreas: No mass or ductal dilatation. Adrenal Glands: No mass. Kidneys, Ureters, Bladder: No hydronephrosis. A right ureteral stent ispresent with proximal tip in the right renal pelvis and distal tip in theprostatic urethra. A 1.3 cm calculus is lodged in the proximal rightureter (16/241), in similar position from 02/05/2024. Additionalnonobstructive calculi are present of bilateral kidneys. Small bilateralrenal cysts are present, including hemorrhagic cysts of the right kidney. No bladder mass. Gastrointestinal Tract: There is diverticulosis coli. The partiallyopacified bowel is otherwise unremarkable. Pelvic Organs: The prostate is mildly enlarged. Peritoneum/Retroperitoneum: No ascites. Lymph Nodes: Small liliya hepatis lymph nodes are stable. For example an 8mm (6/97) is stable from 12/09/2023 MUSCULOSKELETAL: Degenerative changes are present of the spine. No suspect osseouslesions. IMPRESSION: A 1. Stable soft tissue thickening surrounding the hilar confluence ofcommon bile duct, which may represent a combination of tumor infiltrationand post treatment changes. 2. Previously seen rim-enhancing lesion in the right liver dome is nolonger visualized, possibly a resolving abscess. 2. No evidence of progressive metastatic disease in the chest, abdomen orpelvis. 4. Right ureteral stent terminates in the prostatic urethra. A 1.3 cmcalculus in the right lumbar ureter. Or ACTIONABLE ITEMS/RECOMMENDATIONS*: See impression *An Actionable Finding is a finding that may be unrelated to the originalreason for imaging but potentially actionable, meaning furtherinvestigation may be necessary. The Actionable Findings Vigilance Unit(AFVU) assists medical providers with responding to additional radiologicfindings that are unexpected and potentially actionable. Marbella GRAJEDA IMG CT ORDERABLES * Galectin-3 (04/06/2024 6:46 AM CDT) Pathologist [facility] Galectin3 [facility] 17.3 <=22.1 ng/mL 04/13/2024 12:56 PM CDT [facility] Comment: Elevated galectin-3 is associated with greater cardiovascular risk and poor outcome in heart failure patients: </= 17.8 ng/mL (low risk); 17.9-25.9 ng/mL (intermediate risk); >25.9 ng/mL (high risk). Results should be interpreted in the context of the individual patient presentation. Test Performed by: [place] [address] Utility Accounts Director: Al Boyle M.D. Ph.D.; CLIA# [id number] Blood Venous blood specimen / Unknown Port / Unknown 04/06/2024 6:46 AM CDT 04/06/2024 6:49 AM CDT Marbella GRAJEDA LAB BLOOD ORDERABLES [facility] * (ABNORMAL) Hemoglobin A1c (02/24/2024 7:23 AM CDT) Pathologist [facility] Hemoglobin A1c 8.0(H) 4.3 - 5.6 % 02/24/2024 5:38 PM CDT [facility] Blood Venous blood specimen / Unknown Port / Unknown 02/24/2024 7:23 AM CDT 02/24/2024 7:[address] [facility] 02/24/2024 5:38 PM CDT HbA1c values >=6.5% are diagnostic of diabetes mellitus. Diagnosis should be confirmed by repeat testing. Therapeutic Action suggested: >8.0% HbA1c; Goal of therapy: <7.0% HbA1c Dashawn Sutherland MD LAB BLOOD ORDERABLES [facility] [address] [place] [address] [place] [address] * CT Abdomen Pelvis without Contrast (02/05/2024 [...] contrast. ACTIONABLE ITEMS/RECOMMENDATIONS: See impression. Marbella GRAJEDA IM CT ORDERABLES * (ABNORMAL) NT-Pro BNP (In-House) (01/27/2024 9:16 AM CDT) NT-ProBNP 1,432(H) <=450 pg/mL 01/27/2024 3:01 PM CDT [facility] Blood Peripheral blood specimen / Unknown Port / Unknown 01/27/2024 9:16 AM CDT 01/27/2024 9:17 AM CDT Jose Finch MD LAB BLOOD ORDERABLES [facility] Unless otherwise noted, all lab tests performed by: Division of Pathology and Laboratory Medicine [address] [place] [address] * Troponin I (Sendout) (01/27/2024 9:16 AM CDT) Pathologist [facility] Troponin-I 27 <=78 01/28/2024 7:08 AM CDT [facility], [facility] Blood Peripheral blood specimen / Unknown Port / Unknown 01/27/2024 9:16 AM CDT 01/27/2024 9:17 AM CDT Narrative [facility] - 01/28/2024 7:08 AM CDT Based on the Third Yoder Definition of Mycocardial Infarction, the 99th percentile upper reference limit of Troponin I for a healthy population is <0.03 ng/mL. Jose Finch MD LAB BLOOD ORDERABLES [facility], [facility] [address] [place] [address], * (ABNORMAL) Troponin T (In-House) (01/27/2024 9:16 AM CDT) [facility] Troponin T 34(H) <=19 ng/L 01/27/2024 2:57 PM CDT [facility] Blood Peripheral blood specimen / Unknown Port / Unknown 01/27/2024 9:16 AM CDT 01/27/2024 9:17 AM CDT Adin [facility] - 01/27/2024 2:57 PM CDT Reference range [...] results. Jose Finch MD LAB BLOOD ORDERABLES Performing Organization Address [facility] Co de Phone Number [facility] Unless otherwise noted, all lab tests performed by: Division of Pathology and Laboratory Medicine [address] [place] [id number] * CKMB (01/27/2024 9:16 AM CDT) Pathologist [facility] CKMB <2.0 <=10.4 ng/mL 01/27/2024 3:01 PM CDT [facility] Blood Peripheral blood specimen / Unknown Port / Unknown 01/27/2024 9:16 AM CDT 01/27/2024 9:17 AM CDT Jose Finch MD LAB BLOOD ORDERABLES Performing Organization Address [facility] Co de Phone Number [facility] Unless otherwise noted, all lab tests performed by: Division of Pathology and Laboratory Medicine [address] [place] [id number] * Creatine Kinase (01/27/2024 9:16 AM CDT) [facility] Creatine Kinase 41 39 - 308 U/L 01/27/2024 3:01 PM CDT [facility] Blood Peripheral blood specimen / Unknown Port / Unknown 01/27/2024 9:16 AM CDT 01/27/2024 9:17 AM CDT Jose Finch MD LAB BLOOD ORDERABLES Performing Organization Address [facility] Co de Phone Number [facility] Unless otherwise noted, all lab tests performed by: Division of Pathology and Laboratory Medicine [address] [place] [id number] * (ABNORMAL) Lipid Panel (01/27/2024 9:16 AM CDT) Pathologist [facility] Cholesterol Total 142 <=199 mg/dL 01/27/2024 9:55 AM CDT [facility] Comment: ATP III Classification of Total Cholesterol - Primary Target of Therapy (in mg/dL): <200 Desirable 200-239 Borderline high >=240 High Triglyceride 210(H) <=149 mg/dL 01/27/2024 9:55 AM [facility] Comment: ATP III Classification of Serum Triglycerides Primary Target of Therapy (in mg/dL): <150 Normal 150-199 Borderline high 200-499 High >=500 Very high Non-fasting triglycerides >200 mg/dL may be followed up with a fasting Lipid Panel. Calculated LDL-C may be falsely decreased when non-fasting triglycerides >200 mg/dL. HDL Cholesterol 39(L) >=40 mg/dL 01/27/2024 9:55 AM [facility] LDL Cholesterol 61 <=100 mg/dL 01/27/2024 9:55 AM [facility] Comment: ATP III Classification of LDL Cholesterol Primary Target of Therapy (in mg/dL): <100 Optimal 100-129 Near optimal/above optimal 130-159 Borderline high 160-189 High >=190 Very high Very Low Density Lipoprotein 42 mg/dL 01/27/2024 9:55 AM [facility] Is patient fasting? Yes 01/26 9:55 AM [facility] Blood Peripheral blood specimen / Unknown Port / Unknown 01/27/2024 9:16 AM CDT 01/27/2024 9:17 AM CDT Jose Finch MD LAB BLOOD ORDERABLES Performing Organization Address [facility] Co de Phone Number [facility] [address], [facility] [address] [place] [address] * Tip Verification Central Vascular Access Device [...] with and without Contrast (01/16/2024 6:53 PM FLOORS BUFFER) Anatomical Region Laterality Modality Abdomen Magnetic Resonan ce 01/17/2024 5:58 AM [facility] Impressions 01/17/2024 7:20 AM [facility] Impression: 1. The primary tumor within the [...] ITEMS/RECOMMENDATIONS*: See impression. Narrative 01/17/2024 7:20 AM [facility] Examination: MRI ABDOMEN & PELVIS W AND [...] pelvis dated 12/09/2023 and ERCP imagesfrom ERCP 224. Comparison is also made with CT chest [...] in the segment 8 liver dome medially ([id number], image [id number]) shows corresponding T2 hyperintensity (series [...] lymphadenopathy. ACTIONABLE ITEMS/RECOMMENDATIONS*: See impression. Marbella GRAJEDA [facility] MRI ORDERABLES * CT Chest without Contrast (01/07/2024 4:49 PM FLOORS BUFFER) Anatomical Region Laterality Modality Chest Computed Tomogra phy 01/08/2024 7:15 AM [facility] BU[facility] Impressions 01/08/2024 7:30 AM [facility]FFER Calcified and noncalcified pulmonary nodules may be sequela of granulomatous disease. Follow-up to ensure stability exclude metastatic disease can be performed. Bilateral peripheral lower lung reticular opacities concerning for scarring/fibrosis. Additional opacities in the right lower lobe most likely due to atelectasis or scarring and clinical correlation and follow-up is recommended. ACTIONABLE ITEMS/RECOMMENDATIONS*: See impression. Narrative 01/08/2024 7:30 AM F[facility] FULL RESULT: Examination: CT CHEST WO CONTRAST [...] recommended. ACTIONABLE ITEMS/RECOMMENDATIONS*: See impression. Marbella GRAJEDA [facility] CT ORDERABLES * (ABNORMAL) POC Creatinine (01/07/2024 3:57 PM FLOORS BUFFER) POC Creatinine 1.9(H) 0.6 - 1.3 mg/dL 01/07/2024 4:00 PM [facility] Comment:Medications, especia lly hydroxyurea or supplements, such as ascorbate, can interfere with test results causing a falsely and significantly higher result than expected. If a problem is suspected with a patient's result, a sample should be sent to the laboratory for confirmatory testing. POC eGFR 35(L) >=60 mL/min/1.7 3 sq. m 01/07/2024 4:00 PM [facility] Comment: The eGFRcr is calculated with the [...] criteria for CKD. Blood 01/07/2024 3:57 PM FLOORS BUFFER 01/07/2024 4:00 PM FLOORS BUFFER Narrative [facility] - 01/07/2024 4:00 PM FLOORS BUFFER Method description: The i-STAT is an analyzer [...] MD POCT ORDERABLES - DE VICE TRISHA [facility] [address], [facility] [address] [place] [address] * OSI Interventional (12/19/2023 11:58 PM FLOORS BUFFER) Only the most recent of2 resultswithin the time period is included. Narrative Systemgenerated, Documentation - 01/09/2024 11:58 PM FLOORS BUFFER Study acquired at another institution. For comparison only. No [facility] originated interpretation requested or available. Dashawn JO OUTSIDE IMAGE OR DERABLES * OSI CT Chest (12/09/2023 11:57 PM FLOORS BUFFER) Narrative Systemgenerated, Documentation - 01/09/2024 11:57 PM FLOORS BUFFER Study acquired at another institution. For comparison only. No [facility] originated interpretation requested or available. Dashawn JO OUTSIDE IMAGE OR DERABLES * OSI CT Abdomen and Pelvis (12/09/2023 11:57 PM FLOORS BUFFER) Narrative Systemgenerated, Documentation - 01/09/2024 11:57 PM FLOORS BUFFER Study acquired at another institution. For comparison only. No [facility] originated interpretation requested or available. Dashawn JO OUTSIDE IMAGE OR DERABLES * Pathology Outside Interpretation (12/09/2023) Only the most recent of2 resultswithin the time period is included. Materials Received Accession#, Stained, Block, Unstained Collected Received A. [id number], 4 SS, 0 BLOCKS, 0 USS 12/09/2023 01/14/2024 01/15/2024 11:40 AM [facility] Diagnosis Received 4 slides ([id number]) designated common bile duct, brushing: Rare atypical cell clusters 01/15/2024 11:40 AM [facility] Comment Scant cellularity precludes a more definitive characterization. See also the [facility] review ([id number]) of the concurrent biopsy. 01/15/2024 11:40 AM [facility] Disclaimer "Some tests reported here may have been developed and performance characteristics determined by [facility]. These tests have not been specifically cleared or approved by the U.S. Food and Drug Administration. If applicable, controls were reviewed and showed appropriate reactivity." 01/15/2024 11:40 AM [facility] Tissue 12/09/2023 01/14/2024 11: 40 AM [facility] PATH[facility] [id number] [place] [address], [place] after 05/05/2023 Care Teams Shipping Clerk Crating Relationship Specialty Start Date End Date Al Carrasco MD [address] [id number] [email or web address] PCP - External Follow Up A General Surgery 12/26/23 Dashawn Sutherland MD [address] [place] [id number] [email or web address] PCP - General Gastrointestinal Medical Oncology 01/05/24 Al Quick IV, MD [address] [place] [id number] [email or web address] Consulting Physician Urology 04/09/24
[2024-05-04] MEDS ORDERED: VANCOMYCIN 1 GM/VIAL ONE (23:13)
[2024-05-04] MEDS ORDERED: IBUPROFEN 400 MG TAB ONE (23:14)
[2024-05-04] MEDS ORDERED: ACETAMINOPHEN 500 MG TAB ONE (23:14)
[2024-05-04] MEDS ORDERED: CEFEPIME 2 GM VIAL ONE (23:14)
[2024-05-04] MEDS ORDERED: VANCOMYCIN 500 MG/VIAL ONE (23:14)
[2024-05-04] MEDS ORDERED: NA CHLORIDE 0.9% 100 ML ONE (23:15)
[2024-05-04] MEDS ORDERED: NA CHLORIDE 0.9% 1,000 ML ONE (23:15)
[2024-05-04] MEDS ORDERED: NA CHLORIDE 0.9% 500 ML ONE (23:16)
[2024-05-04 23:25] LABS: SARS-CoV-2 Antigen CONTROL BLUE LINE VIS/BG OK; SARS-CoV-2 Antigen Rapid Res Positive (Negative)
[2024-05-05 00:12] LABS: Absolute Lymphocytes (CBC) 0.5 K/uL (0.7-4.9); Absolute Monocytes 1.1 K/uL (0.1-1.3); Absolute Neutrophil 7.1 K/uL (1.8-8.0); Basophils % 0.1 % (0-1.3); Hematocrit 28.2 % (39.6-49.0); Hemoglobin 9.5 g/dL (13.6-17.9); Lymphocytes % 5.2 % (15.3-44.8); MCH 31.3 pg (27.0-35.0); MCHC 33.8 g/dL (32.0-36.0); MCV 92.6 fL (80-100); MPV 8.1 fL (7.6-11.3); Neutrophils % 81.7 % (41.7-73.7); Platelets 199 thou/uL (152-406); RBC Red Blood Cell Count 3.04 M/uL (4.33-5.43); Red Cell Distribution Width 17.2 % (12.1-15.2)
[2024-05-05 00:15] LABS: PT Prothrombin Time 12.4 SECONDS (9.5-12.5); PTT, Activated Partial Thromb 32.6 SECONDS (24.3-36.9); Protime INR 1.13
[2024-05-05 00:23] LABS: Albumin 2.6 g/dL (3.4-5.0); Albumin/Globulin Ratio 0.5 (1.1-1.8); Anion Gap 13.1 mEq/L (5.0-15.0); Bilirubin Total 0.3 mg/dL (0.2-1.0); Potassium 4.1 mEq/L (3.5-5.1); Protein, Total 7.6 g/dL (6.4-8.2)
[2024-05-05 01:55] LABS: Renal Epithelial <5 /HPF (None Seen); Specific Gravity 1.017 (1.005-1.030); Sqamous Epithelial None Seen /HPF (None Seen); Urine Bacteria <20 /HPF (<20); Urine Bilirubin NEGATIVE (Negative); Urine Blood 2+ (Negative); Urine Clarity Extremely Turbid (Clear); Urine Color Light-Yellow (Yellow); Urine Culture Reflex Order REFLEXED; Urine Glucose 4+ (Over) (Negative); Urine Ketones NEGATIVE (Negative); Urine Microscopic Reflex YN ORDER UMIC; Urine Mucus Slight /HPF (None Seen); Urine Nitrite 1+ (Negative); Urine Protein 2+ (Negative); Urine RBC 21-50 /HPF (None Seen); Urine Urobilinogen Normal (Normal); Urine WBC >50 /HPF (<5); Urine WBC Clump Occasional /HPF (None Seen); Urine pH 5.5 (5.0-7.0)
--- NOTE | 2024-05-05 02:26 | ER ---
Nurse's Notes [facility] Name: Nnamdi Flores III Age: 78 yrs Sex: Male : 1945 Arrival Date: 05/04/2024 Time: 21:30 Bed 4 Private MD: Sandie Tesfaye Diagnosis: Fever, unspecified;Other specified viral diseases;UTI/ Urinary tract infection, site not specified;Acute COVID-19, history of biliary cancer Presentation: 05/04 21:58 Chief complaint: Patient states: I have been feeling bad for two days with cough bm8 congestion fever and threw up today. I am also on chemo and had my 7th treastment today. Coronavirus screen: Client presents with at least one sign or symptom that may indicate coronavirus-19. Standard/surgical mask placed on the client. Provider contacted for isolation considerations. Ebola Screen: Patient negative for fever greater than or equal to 101.5 degrees Fahrenheit, and additional compatible Ebola Virus Disease symptoms Patient denies exposure to infectious person. Patient denies travel to an Ebola-affected area in the 21 days before illness onset. No symptoms or risks identified at this time. Initial Sepsis Screen: Does the patient meet any 2 criteria? RR > 20 per min. Temp <36.0*C (96.8*F)) or > 38.3*C (100.9*F). HR > 90 bpm. Does the patient have a suspected source of infection? No. Patient's initial sepsis screen is negative. Risk Assessment: Do you want to hurt yourself or someone else? Patient reports no desire to harm self or others. Onset of symptoms was May 02, 2024. 21:58 Method Of Arrival: Ambulatory bm8 21:58 Acuity: DAMION 2 bm8 Triage Assessment: 22:01 General: Appears in no apparent distress. comfortable, Behavior is calm, cooperative, bm8 appropriate for age. Pain: Complains of pain in generalized body. EENT: No deficits noted. No signs and/or symptoms were reported regarding the EENT system. Neuro: No deficits noted. Level of Consciousness is awake, alert, obeys commands, Oriented to person, place, time, situation, Appropriate for age. Cardiovascular: Capillary refill < 3 seconds Patient's skin is warm and dry. Respiratory: Airway is patent Trachea midline Respiratory effort is even, unlabored, Respiratory pattern is regular, symmetrical. GI: Reports nausea, vomiting. Historical: - Allergies: 22: Morphine; bm8 22:01 Sulfa (Sulfonamide Antibiotics); bm8 - Home Meds: 22:01 aspirin 81 mg Oral tablet daily [Active]; Glimepiride Oral [Active]; losartan oral bm8 [Active]; Metoprolol Tartrate Oral [Active]; Oxybutynin Chloride Oral daily [Active]; Plavix 75 mg Oral tablet daily [Active]; - PMHx: 22:01 BILE DUCT CANCER (Hypothyroidism); BPH; Hypertensive disorder; coronary bm8 atherosclerosis; Hypothyroidism; - PSHx: 22: Unable to Obtain; bm8 - Immunization history:: Adult Immunizations up to date, Client reports receiving the 2nd dose of the Covid vaccine. - Infectious Disease History:: Denies. - Social history:: Smoking status: Patient denies any tobacco usage or history of. - Family history:: not pertinent. Screenin/19 00:00 [facility] ED Fall Risk Assessment (Adult) History of falling in the last 3 months, ha1 including since admission No falls in past 3 months (0 pts) Confusion or Disorientation No (0 pts) Intoxicated or Sedated No (0 pts) Impaired Gait No (0 pts) Mobility Assist Device Used Yes (1 pt) Altered Elimination No (0 pt) Score/Fall Risk Level 0 - 2 = Low Risk Oriented to surroundings, Maintained a safe environment, Educated pt \T\ family on fall prevention, incl call for assistance when getting out of bed, Provided non-skid footwear. 02:14 Abuse screen:. Nutritional screening: No deficits noted. Tuberculosis screening: No ha1 symptoms or risk factors identified. Assessment: 05/04 22:30 General: Appears uncomfortable, Behavior is calm, cooperative. Neuro: Level of ha1 Consciousness is awake, alert, obeys commands, Oriented to person, place, time, situation. 22:30 Cardiovascular: Capillary refill < 3 seconds Patient's skin is warm and dry. ha1 Respiratory: Airway is patent Respiratory effort is even, unlabored, Respiratory pattern is regular, symmetrical. Respiratory: Reports cough that is runny nose. GI: Abdomen is round non-distended. : No signs and/or symptoms were reported regarding the genitourinary system. Derm: Skin is pink, warm \T\ dry. 05/05 00:23 Reassessment: Patient and/or family updated on plan of care and expected duration. Pain ha1 level reassessed. Patient is alert, oriented x 3, equal unlabored respirations, skin warm/dry/pink. 01:17 Reassessment: eyes closed. Respiratory: Airway is patent Respiratory effort is even, ha1 unlabored, Respiratory pattern is regular, symmetrical. 02:12 Reassessment: Patient and/or family updated on plan of care and expected duration. Pain ha1 level reassessed. Patient is alert, oriented x 3, equal unlabored respirations, skin warm/dry/pink. Dr. Sapp in the room. Vital Signs: 05/04 21:58 BP 182 / 77; Pulse 115; Resp 22; Temp 102.1(O); Pulse Ox 98% on R/A; Weight 72.57 kg; bm8 Height 0 ft. 1 in. ; Pain 6/10; 05/05 00:22 BP 159 / 63; Pulse 95; Resp 17 S; Temp 98.8(O); Pulse Ox 99% on R/A; ha1 01:00 BP 132 / 83; Pulse 86; Resp 17 S; Pulse Ox 97% ; ha1 02:00 BP 129 / 60; Pulse 84; Resp 16 S; Temp 98.1(O); Pulse Ox 97% on R/A; ha1 05/04 21:58 Body Mass Index 03131.91 (72.57 kg, 5 cm) bm8 05/04 21:58 Pain Scale: Adult bm8 [place] Coma Score: 02:29 Eye Response: spontaneous(4). Motor Response: obeys commands(6). Verbal Response: sp4 oriented(5). Total: 15. ED Course: 05/04 21:32 Patient arrived in ED. mr 21:33 Sandie Tesfaye is Private Physician. mr 21:39 Juanito Sapp MD is Attending Physician. sp4 22:00 Patient has correct armband on for positive identification. Placed in gown. Bed in low ha1 position. Call light in reach. Side rails up X 1. Side rails up X2. 22:01 Triage completed. bm8 22:01 Arm band placed on right wrist. bm8 23:03 Influenza Screen (a \T\ B) Sent. ha1 23:04 SARS RAPID Sent. ha1 23:40 Inserted saline lock: 22 gauge in left hand, using aseptic technique. lc8 23:54 Blood Culture Adult (2) Sent. lc8 23:54 CBC with Diff Sent. lc8 23:54 CMP Sent. lc8 23:54 Lactate w/ 2H reflex if indic. Sent. lc8 23:54 Protime (+inr) Sent. lc8 23:55 Ptt, Activated Sent. lc8 05/05 01:07 CT Chest Abdomen Pelvis W/O Contrast In Process Unspecified. EDMS 02:24 Sandie Tesfaye is Referral Physician. sp4 02:40 Provided Education on: FOLLOW UP CARE; PRESCRIPTIONS . lc8 02:40 No provider procedures requiring assistance completed. lc8 02:40 IV discontinued, intact, Pressure dressing applied. lc8 Administered Medications: 05/04 23:00 Drug: Acetaminophen PO 1000 mg PO once Route: PO; [facility] 05/05 00:00 Follow up: Response: No adverse reaction; Temperature is decreased [facility] 05/04 23:00 Drug: Ibuprofen PO 800 mg PO once Route: PO; [facility] 05/05 00:00 Follow up: Response: No adverse reaction; Temperature is decreased [facility] 05/04 23:56 Drug: Cefepime IVPB 2 grams IVPB at 200 ml/hr once over 30 mins; (mix in NS 100 mL) lc8 Route: IVPB; Rate: 200 ml/hr; Infused Over: 30 mins; Site: right hand; 05/05 00:20 Follow up: Response: No adverse reaction; IV Status: Completed infusion; IV Intake: ha1 100ml 00:30 Follow up: Response: No adverse reaction 8 05/04 23:56 Drug: NS 0.9% IV 1000 ml IV at 1 bolus Per protocol; 1000 mL bolus Route: IV; Rate: 1 lc8 bolus; Site: right hand; 05/05 00:55 Follow up: Response: No adverse reaction 8 02:46 Follow up: Response: No adverse reaction; IV Status: Completed infusion; IV Intake: ha1 1000ml 00:23 Drug: vancoMYCIN IVPB 1.5 grams IVPB at calculated rate once Route: IVPB; Rate: lc8 calculated rate; Site: right hand; 02:20 Follow up: Response: No adverse reaction lc8 02:20 Follow up: Response: No adverse reaction ha1 Medication: 02:40 VIS not applicable for this client. lc8 02:45 VIS not applicable for this client. ha1 Intake: 00:20 IV: 100ml; Total: 100ml. ha1 02:46 IV: 1000ml; Total: 1100ml. ha1 Outcome: 02:25 Discharge ordered by . sp4 02:40 Discharged to home ambulatory, with family, lc8 02:40 Condition: stable 02:40 Discharge instructions given to patient, family, Instructed on discharge instructions, follow up and referral plans. Demonstrated understanding of instructions, follow-up care, medications, Prescriptions given X 4, 02:45 Patient left the ED. lc8 Signatures: Dispatcher [employer] EDMS Karen Dudley, Jevon Escoto mr Jen Edmonds, RN RN ha1 Juanito Sapp MD MD sp4 Yousif Medrano, RN RN bm8 Pauline Krause RN RN lc8 Corrections: (The following items were deleted from the chart) 00:23 00:22 BP 159 / 63; Pulse 95bpm; Resp 17bpm; Spontaneous; Pulse Ox 99% RA; ha1 ha1 02:47 00:30 Response: No adverse reaction; IV Status: Completed infusion; IV Intake: 100ml ha1ha1
--- NOTE | 2024-05-05 02:26 | EDPHYS ---
Physician Documentation [facility] Name: Nnamdi Flores III Age: 78 yrs Sex: Male : 1945 Arrival Date: 05/04/2024 Time: 21:30 Bed 4 Private MD: Sandie Tesfaye ED Physician Juanito Sapp HPI: 05/04 21:39 This 78 yrs old Other Race Male presents to ER via Unassigned with complaints of Cancer sp4 pt, Covid+. 05/05 02:27 Patient has history of biliary duct carcinoma he has received chemotherapy today sp4 including Durvalumab and oxaliplatin. Patient reports he came home today and spiked a fever. 02:29 Reports for the past 2 days he has been feeling unwell and today he also had episode of sp4 vomiting.. Historical: - Allergies: 05/04 22:01 Morphine; bm8 22:01 Sulfa (Sulfonamide Antibiotics); bm8 - Home Meds: 22:01 aspirin 81 mg Oral tablet daily [Active]; Glimepiride Oral [Active]; losartan oral bm8 [Active]; Metoprolol Tartrate Oral [Active]; Oxybutynin Chloride Oral daily [Active]; Plavix 75 mg Oral tablet daily [Active]; - PMHx: 22:01 BILE DUCT CANCER (Hypothyroidism); BPH; Hypertensive disorder; coronary bm8 atherosclerosis; Hypothyroidism; - PSHx: 22:01 Unable to Obtain; bm8 - Immunization history:: Adult Immunizations up to date, Client reports receiving the 2nd dose of the Covid vaccine. - Infectious Disease History:: Denies. - Social history:: Smoking status: Patient denies any tobacco usage or history of. - Family history:: not pertinent. ROS: 05/05 02:29 Constitutional: Positive fever, positive vomiting, positive feeling unwell sp4 All other systems are negative, Exam: 02:29 Constitutional: This is a well developed, well nourished patient who is awake, alert, sp4 and in no acute distress. Head/Face: Normocephalic, atraumatic. Eyes: Pupils equal round and reactive to light, extra-ocular motions intact. Lids and lashes normal. Conjunctiva and sclera are not injected. Cornea within normal limits. Periorbital areas with no swelling, redness, or edema. ENT: Nares patent. No nasal discharge, no septal abnormalities noted. Tympanic membranes are normal and external auditory canals are clear. Oropharynx with no redness, swelling, or masses, exudates, or evidence of obstruction, uvula midline. Mucous membranes moist. Neck: Trachea midline, no thyromegaly or masses palpated, and no cervical lymphadenopathy. Supple, full range of motion without nuchal rigidity, or vertebral point tenderness. Chest/axilla: Normal chest wall appearance and motion. Nontender with no deformity. No lesions are appreciated. Cardiovascular: Regular rate and rhythm with a normal S1 and S2. No gallops, murmurs, or rubs. Normal PMI, no JVD. No pulse deficits. Respiratory: Lungs have equal breath sounds bilaterally, clear to auscultation and percussion. No rales, rhonchi or wheezes noted. No increased work of breathing, no retractions or nasal flaring. Abdomen/GI: Soft, with normal bowel sounds. No distension or tympany. No guarding or rebound. No evidence of tenderness throughout. Back: No spinal tenderness. No costovertebral tenderness. Skin: Warm, dry with normal turgor. Normal color with no rashes, no lesions, and no evidence of cellulitis. MS/ Extremity: Pulses equal, no cyanosis. Neurovascular intact. Full, normal range of motion. Neuro: Awake and alert, GCS 15, oriented to person, place, time, and situation. Cranial nerves II-XII grossly intact. Motor strength 5/5 in all extremities. Sensory grossly intact. Psych: Awake, alert, with orientation to person, place and time. Behavior, mood, and affect are within normal limits 02:29 ECG was reviewed by the Attending Physician. EKG at 2306 reveals sinus tachycardia at a rate of 104, left axis deviation, left axis deviation otherwise normal Vital Signs: 05/04 21:58 BP 182 / 77; Pulse 115; Resp 22; Temp 102.1(O); Pulse Ox 98% on R/A; Weight 72.57 kg; bm8 Height 0 ft. 1 in. ; Pain 6/10; 05/05 00:22 BP 159 / 63; Pulse 95; Resp 17 S; Temp 98.8(O); Pulse Ox 99% on R/A; ha1 01:00 BP 132 / 83; Pulse 86; Resp 17 S; Pulse Ox 97% ; ha1 02:00 BP 129 / 60; Pulse 84; Resp 16 S; Temp 98.1(O); Pulse Ox 97% on R/A; ha1 05/04 21:58 Body Mass Index 47112.91 (72.57 kg, 5 cm) 8 05/04 21:58 Pain Scale: Adult bm8 [place] Coma Score: 02:29 Eye Response: spontaneous(4). Motor Response: obeys commands(6). Verbal Response: sp4 oriented(5). Total: 15. MDM: 05/04 23:49 Patient medically screened. sp4 05/05 02:19 ED course: IMPRESSION: CT 1. Right ureteral stent with the proximal and at the level of sp4 the UPJ. There is mild right hydronephrosis and 2 stones in the superior pole of the right kidney, also present on the prior examination. A 1.2 cm stone in the proximal right ureter adjacent to the ureteral stent is also present on the prior examination. The distal end of the right ureteral stent is in the penile urethra. 2. Nonobstructive left renal calculi, similar to the prior examination. 3. Thickened cabrera of the urinary bladder which may be secondary to incomplete distention, cystitis or sequela from chronic outlet obstruction. 4. Pneumobilia with biliary stent in place, similar to the prior examination. . 02:29 Differential Diagnosis altered mental status, sepsis, flu. Data reviewed: vital signs, sp4 nurses notes, old medical records, lab test result(s), EKG, radiologic studies, CT scan. Consideration of Admission/Observation Escalation of care including admission/observation considered. ED course: Patient CT has revealed some chronic findings including right ureteral stent with mild right hydronephrosis and to superior pole kidney stones that were present on prior exam. 1.2 cm stone proximal right ureter adjacent to ureteral stent also present on prior examination. Nonobstructive left renal calculi present on a prior exam. Thickened cabrera of urinary bladder. Pneumobilia with biliary stent in place similar to prior exam. At this time patient has no emergent findings on a CAT scan. It has improved. Patient is feeling better. Will prescribe Paxlovid for COVID-positive acute COVID-19 illness. Will prescribe cephalexin for signs of UTI however this can also be a so called Sten Urine with blood and white cells present secondary to right ureteral stent. Will advise ibuprofen and Tylenol every 6 hours at home for fever management as needed ondansetron as well. Follow-up with [facility] for further chemotherapy and also follow-up with [facility] for right ureteral stent removal. . 05/04 22:00 Order name: Blood Culture Adult (2) [facility] 05/04 22:00 Order name: CBC with Diff; Complete Time: 00:32 [facility] 05/04 22:00 Order name: CMP; Complete Time: 00:32 [facility] 05/04 22:00 Order name: Lactate w/ 2H reflex if indic.; Complete Time: 01:35 [facility] 05/04 22:00 Order name: Protime (+inr); Complete Time: 00:32 [facility] 05/04 22:00 Order name: Ptt, Activated; Complete Time: 00:32 [facility] 05/04 22:00 Order name: Urinalysis w/ reflexes; Complete Time: 02:07 [facility] 05/04 22:02 Order name: SARS RAPID; Complete Time: 23:50 [facility] 05/04 22:02 Order name: Influenza Screen (a \T\ B); Complete Time: 23:50 [facility] 05/04 23:55 Order name: NT PRO-BNP; Complete Time: 00:32 [facility] 05/05 02:03 Order name: Urine Culture [facility] 05/05 02:35 Order name: Ghost Lactate-NO COLLECT Timer [facility] 05/05 00:35 Order name: CT Chest Abdomen Pelvis W/O Contrast [facility] 05/04 22:00 Order name: EKG; Complete Time: 22:02 [facility] 05/04 22:00 Order name: Accucheck; Complete Time: 00:22 [facility] 05/04 22:00 Order name: Cardiac monitoring; Complete Time: 00:01 [facility] 05/04 22:00 Order name: EKG - Nurse/Tech; Complete Time: 00:01 [facility] 05/04 22:00 Order name: IV Saline Lock - Large Bore; Complete Time: 00:22 [facility] 05/04 22:00 Order name: Labs collected and sent; Complete Time: 00:01 [facility] 05/04 22:00 Order name: O2 Per Protocol; Complete Time: 00:01 [facility] 05/04 22:00 Order name: O2 Sat Monitoring; Complete Time: 00:01 [facility] 05/04 22:00 Order name: Vital Signs; Complete Time: 00: sp4 EC:29 Rate is 104 beats/min. Rhythm is regular, Sinus tachycardia. Left axis deviation noted. sp4 ID interval is normal. QRS interval is normal. QT interval is normal. No Q waves. T waves are Normal. No ST changes noted. Clinical impression: No evidence of ischemia. Interpreted by me. Reviewed by me. Administered Medications: 05/04 23:00 Drug: Acetaminophen PO 1000 mg PO once Route: PO; [facility] 05/05 00:00 Follow up: Response: No adverse reaction; Temperature is decreased [facility] 05/04 23:00 Drug: Ibuprofen PO 800 mg PO once Route: PO; [facility] 05/05 00:00 Follow up: Response: No adverse reaction; Temperature is decreased [facility] 05/04 23:56 Drug: Cefepime IVPB 2 grams IVPB at 200 ml/hr once over 30 mins; (mix in NS 100 mL) lc8 Route: IVPB; Rate: 200 ml/hr; Infused Over: 30 mins; Site: right hand; 05/05 00:20 Follow up: Response: No adverse reaction; IV Status: Completed infusion; IV Intake: ha1 100ml 00:30 Follow up: Response: No adverse reaction 8 05/04 23:56 Drug: NS 0.9% IV 1000 ml IV at 1 bolus Per protocol; 1000 mL bolus Route: IV; Rate: 1 lc8 bolus; Site: right hand; 05/05 00:55 Follow up: Response: No adverse reaction 8 02:46 Follow up: Response: No adverse reaction; IV Status: Completed infusion; IV Intake: ha1 1000ml 00:23 Drug: vancoMYCIN IVPB 1.5 grams IVPB at calculated rate once Route: IVPB; Rate: lc8 calculated rate; Site: right hand; 02:20 Follow up: Response: No adverse reaction lc8 02:20 Follow up: Response: No adverse reaction ha1 Disposition Summary: 05/05/24 02:25 Discharge Ordered Notes: Location: Home sp4 Problem: new sp4 Symptoms: have improved sp4 Condition: Stable sp4 Diagnosis - Fever, unspecified sp4 - Other specified viral diseases sp4 - UTI/ Urinary tract infection, site not specified sp4 - Acute COVID-19, history of biliary cancer sp4 Followup: sp4 - With: Sandie Tesfaye - When: 5 - 6 days - Reason: Recheck today's complaints Discharge Instructions: - Discharge Summary Sheet sp4 - COVID-19 sp4 Forms: - Patient Portal Instructions sp4 Prescriptions: - Paxlovid 300 mg (150 mg x 2)-100 mg Oral Tablet, Dose Pack - take 1 dose pack ORAL route as directed on dose pack take TWO 150 mg tablets of sp4 nirmatrelvir with ONE 100 mg tablet of ritonavir twice daily for 5 days; 1 Pack; Refills: 0, Product Selection Permitted - Cephalexin 500 mg Oral Capsule - take 1 capsule ORAL route every 12 hours for 10 days; 20 capsule; Refills: 0, sp4 Product Selection Permitted - Ibuprofen 600 mg Oral Tablet - take 1 tablet ORAL route every 6 hours As needed take with food; 30 tablet; sp4 Refills: 0, Product Selection Permitted - ondansetron 8 mg Oral Tablet,disintegrating - take 1 tablet ORAL route every 8 hours PRN nausea; 30 tablet; Refills: 0, sp4 Product Selection Permitted Signatures: Dispatcher [employer] EDMS Jen Edmonds, RN RN ha1 Juanito Sapp MD MD sp4 Yousif Medrano, RN RN bm8 Pauline Krause RN RN lc8 Corrections: (The following items were deleted from the chart) 05/04 22:02 22:01 BLOOD CULTURE*+BA.LAB.BRZ ordered. EDMS EDMS 22:02 22:01 CBC+H.LAB.BRZ ordered. EDMS EDMS 22:02 22:01 COMPREHENSIVE METABOLIC PANEL+C.LAB.BRZ ordered. EDMS EDMS 22:02 22:01 LACTATE+C.LAB.BRZ ordered. EDMS EDMS 22:02 22:01 PROTIME (+INR)+COAG.LAB.BRZ ordered. EDMS EDMS 22:02 22:01 PTT, ACTIVATED+COAG.LAB.BRZ ordered. EDMS EDMS 22:02 22:01 Urinalysis+U.LAB.BRZ ordered. EDMS EDMS 23:50 23:50 Chest Abdomen Pelvis W Con+CT.RAD.BRZ ordered. EDMS EDMS 23:54 22:03 PROBNP+C.LAB.BRZ ordered. EDMS EDMS
[2024-05-05 02:55] VITALS: BP 129/60; TEMP 98.1; O2SAT 97
--- NOTE | 2024-05-06 10:00 | RAD REPORT ---
EXAM DESCRIPTION: CHEST ABD PELVIS WO CON CLINICAL HISTORY: FEVER TECHNIQUE: Contiguous axial images obtained through the chest , abdomen and pelvis following the une ventful administration of IV contrast. Coronal and sagittal reformatted images provided. This exam was performed according to our departmental dose-optimization program, which includes autom ated exposure control, adjustment of the mA and/or kV according to patient size and/or use of iterati ve reconstruction technique. COMPARISON: CT abdomen and pelvis from March 2024 FINDINGS: Lungs: No focal consolidation. Airways are patent. Chronic interstitial changes in the timoteo g bases. Pleura: No effusion. No pneumothorax. Heart and pericardium: The heart is normal in size. No pericardial effusion. Mediastinum and deion: No pathologically enlarged lymph nodes. Lower neck and chest wall: Unremarkable Vessels: MediPort line in the SVC. Bones: Unremarkable Liver: Pneumobilia with biliary stent in place, similar to the prior examination. Gallbladder and biliary system: Status post cholecystectomy. Pancreas: Unremarkable Spleen: Unremarkable Adrenals: Unremarkable Kidneys: Nonobstructive left renal calculi, similar to the prior examination. Small exophytic cyst in the mid polar region of the left kidney, unchanged since the prior examinatio n for which no follow-up imaging is indicated. There is a right ureteral stent with the proximal and at the level of the UPJ. There is mild right hy dronephrosis and 2 stones in the superior pole of the right kidney, also present on the prior examina tion. Tiny hyper attenuating focus in the mid polar region of the right renal cortex likely small hem orrhagic cyst. A 1.2 cm stone in the proximal right ureter adjacent to the ureteral stent is also present on the rebecca or examination. The distal end of the right ureteral stent is in the penile urethra. Gl : No obstruction. No appreciable mucosal thickening. Scattered colonic diverticula with no evidenc e of diverticulitis. Appendix: No findings to suggest acute appendicitis. Urinary bladder: Thickened cabrera of the urinary bladder which may be secondary to incomplete distenti on, cystitis or sequela from chronic outlet obstruction Reproductive: Mildly enlarged prostate Lymph nodes: No pathologically enlarged lymph nodes. Peritoneum: No focal fluid collection. No free air. Vessels: No abdominal aortic aneurysm. Abdominal wall: Unremarkable Bones: Unremarkable IMPRESSION: 1. Right ureteral stent with the proximal and at the level of the UPJ. There is mild r ight hydronephrosis and 2 stones in the superior pole of the right kidney, also present on the prior examination. A 1.2 cm stone in the proximal right ureter adjacent to the ureteral stent is also prese nt on the prior examination. The distal end of the right ureteral stent is in the penile urethra. 2. Nonobstructive left renal calculi, similar to the prior examination. 3. Thickened cabrera of the urinary bladder which may be secondary to incomplete distention, cystitis or sequela from chronic outlet obstruction. 4. Pneumobilia with biliary stent in place, similar to the prior examination. Electronically signed by: Juve Peña MD 05/05/2024 02:11 AM CDT RP Due to temporary technical issues with the PACS/Fluency reporting system, reports are being signed by the in house radiologist without review as a courtesy to ensure prompt reporting. The interpreting r adiologist is fully responsible for the content of the report.
--- NOTE | 2024-05-06 16:19 | EKG ---
Test Date: 2024-05-04 Test Time: 23:06:42 Station Detective: NICO MEASUREMENT RESULTS: Intervals: Rate: 104 [place]: 160 QRSD: 90 QT: 348 QTc: 457 [place]: P: 44 [place]: 160 QRS: -46 T: 56 INTERPRETIVE STATEMENTS: Sinus tachycardia Left axis deviation Anteroseptal infarct, age undetermined Abnormal ECG Compared to ECG 03/10/2024 07:44:29 Fusion complex(es) no longer present Ventricular premature complex(es) no longer present ST (T wave) deviation no longer present Myocardial infarct finding still present Electronically Signed On 05-06-24 16:16:50 CDT by Nelson Orr
== END 2024-05-05 02:45 | disposition home or self-care (01) ==
LOC: ER 21:30
DX: U07.1 COVID-19 (principal); N39.0 Urinary tract infection, site not specified; B33.8 Other specified viral diseases; Z85.89 Personal history of malignant neoplasm of other organs and systems
CPT/HCPCS: 93005; 87040 ×2; 87088; 85025; 81001; 87086; 36415 ×2; 85610; 83605; 85730; 80053; 83880; 87804 ×2; 71250; 74176; 87811; J0692; J7040; J7030; 87205

== ENCOUNTER 2024-05-12 07:13 | Emergency (ER) | payer OTHER ==
--- OUTSIDE RECORDS SUMMARY | 2024-05-12 07:17 | XMS REPORT | Clinical Summary ---
Author Name Unknown Organization [facility] [place] Address [address] [place] [address] Care Team Providers Care Sports Umpire Name Role Phone Al Carrasco MD Unavailable [phone] Dashawn Sutherland MD Primary Care Provider [phone] Ynes RUBI MD, Al Hay Unavailable [phone] Allergies Active Allergy Reactions Criticality Noted Date [...] twice daily. 12/24/2023 4 Discontinued Active Problems Patient Care Coordination No te Formatting of this note migh t be different from the original. Patient tested positive for COVID on 05/05/24. 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 Encounters Date Type Department Care Team Description 05/07/2024 Telephone Cardiopulmonary Center [facility] Main dg, 6th [place] [address] Kenisha Medel, TORREY 05/06/2024 Orders Only Gastrointestinal Center [facility]5 [facility] Main dg, 7th [place] [address] Marbella Pereira PA 05/04/2024 9:00 AM CDT Infusion [facility] - [address] [address] Marbella Pereira PA Monroe, Celine M, RN Cholangiocarcinoma of biliary tract, NOS (Primary Dx) 05/04/2024 Orders Only Gastrointestinal Center [address] [place] [address], 7th [place] [address] Marbella Pereira PA Cholangiocarcinoma of biliary tract, NOS (Primary Dx) 05/04/2024 Travel 04/28/2024 Documentation Cardiopulmonary Center [address] [place] [address], 6th [place] [address] Gem Schmidt 04/26/2024 2:00 PM CDT Telemedicine [facility] - Medical Oncology [address] [place] [address] Dashawn Sutherland MD Cholangiocarcinoma of biliary tract, NOS (Primary Dx) 04/26/2024 Orders Only [facility] - Medical Oncology [address] [place] [address] Marbella Pereira PA 04/26/2024 Telephone [facility] [address] [facility], Floor 7 [place] [address] Karen Helton RN 04/20/2024 9:00 AM CDT Infusion [facility] - Infusion [address] [place] [address] Marbella Pereira PA Tran, Nancy K, RN Cholangiocarcinoma of biliary tract, NOS (Primary Dx) 04/20/2024 Travel 04/09/2024 10:30 AM CDT Consult Genitourinary Cancer Center [address] [facility], 7th [place] [address] Al Quick IV, MD Calculus of kidney and ureter; Cholangiocarcinoma of biliary tract, NOS 04/09/2024 Prep for Surgery [facility] [address] [facility], 7th [place] [address] Tamara Schmid APRN Calculus of ureter (Primary Dx) 04/09/2024 Travel 04/06/2024 2:10 PM CDT Ancillary Procedure [address] [address] Marbella Pereira PA Cholangiocarcinoma of biliary tract, NOS 04/06/2024 8:00 AM CDT Infusion [facility] - [address] [address] Marbella Pereira PA Thomas, Alice, RN Cholangiocarcinoma of biliary tract, NOS (Primary Dx) 04/06/2024 Travel 03/31/2024 10:00 AM CDT Follow-Up [facility] - Medical Oncology [address] [place] [address] Dashawn Sutherland MD Cholangiocarcinoma of biliary tract, NOS (Primary Dx) 03/31/2024 Travel 03/25/2024 Orders Only [facility] - Medical Oncology [address] [place] [address] Marbella Pereira PA Cholangiocarcinoma of biliary tract, NOS (Primary Dx) 03/11/2024 Orders Only Gastrointestinal Center [address] [facility], 7th [place] [address] Marbella Pereira PA 03/09/2024 9:00 AM CDT Infusion [facility] - Infusion [address] [place] [address] Marbella Pereira PA Tran, Nancy K, RN Cholangiocarcinoma of biliary tract, NOS (Primary Dx) 03/09/2024 Travel 03/01/2024 10:30 AM CDT Follow-Up [facility] Oncology [address] [place] [address] Dashawn Sutherland MD Cholangiocarcinoma of biliary tract, NOS (Primary Dx); 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 03/01/2024 Travel 02/24/2024 9:00 AM CDT Infusion [facility] - Infusion [address] [place] [address] Marbella Pereira PA Brioso, Cecille, RN Cholangiocarcinoma of biliary tract, NOS (Primary Dx) 02/24/2024 Orders Only Gastrointestinal Center [address] [place] [address] Main [facility], 7th [place] [address] Dashawn Sutherland MD Cholangiocarcinoma of biliary tract, NOS (Primary Dx) 02/24/2024 Travel 02/10/2024 9:00 AM CDT Infusion [facility] - [address] 4th [place] [address] Dashawn Sutherland MD Thomas, Alice, TORREY Cholangiocarcinoma of biliary tract, NOS (Primary Dx) 02/10/2024 Travel 02/06/2024 Orders Only [facility] Oncology [address] [place] [address] Marbella Pereira PA Cholangiocarcinoma of biliary tract, NOS (Primary Dx); Hydronephrosis, not otherwise specified; Calculus of ureter 02/06/2024 Orders Only [facility] Oncology [address] [place] [address] Marbella Pereira PA Cholangiocarcinoma of biliary tract, NOS (Primary Dx) 02/05/2024 10:20 AM CDT Ancillary Procedure [address] [address] Marbella Pereira PA Cholangiocarcinoma of biliary tract, NOS; Right lower quadrant pain 02/05/2024 Travel 02/03/2024 Orders Only [facility] [address] [place] [address] Main dg, 7th [place] [address] Marbella Pereira PA 02/02/2024 2:00 PM CDT Telemedicine [facility] - Medical Oncology [address] [facility] [place] [address] Dashawn Sutherland MD Right lower quadrant pain (Primary Dx); Cholangiocarcinoma of biliary tract, NOS 01/30/2024 Orders Only Gastrointestinal Center [address] [place] [address] Main Bldg, 7th [place] [address] Reggie Suarez, [facility] 01/28/2024 Telephone [facility] - Infusion [address] [place] [address] 4th [place] [address] Cameron Caban Jr., RN Follow-up 01/27/2024 10:00 AM CDT Infusion [facility] - Infusion [address] [place] [address] 4th [place] [address] Dashawn Sutherland MD Alegado, Reynaldo F Jr., RN Cholangiocarcinoma of biliary tract, NOS (Primary Dx) 01/27/2024 Documentation Cardiopulmonary Center [address] [facility] Main Bldg, 6th [place] [address] Gem Schmidt 01/27/2024 Travel 01/26/2024 1:15 PM CDT Ancillary Procedure [address] 2nd [place] [address] Marbella Pereira PA Cholangiocarcinoma of biliary tract, NOS 01/26/2024 Documentation [facility] - Medical Oncology [address] [place] [address], [place] [address] Marbella Pereira PA 01/26/2024 Orders Only [facility] - Medical Oncology [address] [place] [address], [place] [address] Marbella Pereira PA 01/26/2024 Travel 01/20/2024 Orders Only [facility] - Medical Oncology [address] [place] [address], [place] [address] Marbella Pereira PA Cholangiocarcinoma of biliary tract, NOS (Primary Dx) 01/20/2024 Orders Only Gastrointestinal Center [address] [facility] Main Bldg, 7th [place] [address] Marbella Pereira PA Cholangiocarcinoma of biliary tract, NOS (Primary Dx) 01/20/2024 Documentation Cardiopulmonary Center [address] [facility] Main Bldg, 6th [place] [address] Gem Schmidt 01/20/2024 Orders Only Cardiopulmonary Center [address] [facility] Main Bldg, 6th [place] [address] Jose Finch MD Immunotherapy for cancer (Primary Dx) 01/20/2024 Orders Only [facility] Oncology [address] [place] [address] Marbella Pereira PA 01/19/2024 3:00 PM MOISTURE TESTER Follow-Up [facility] Oncology [address] [place] [address] Dashawn Sutherland MD Cholangiocarcinoma of biliary tract, NOS (Primary Dx) 01/19/2024 Orders Only Gastrointestinal Center [address] [facility] Main dg, 7th [place] [address] Ney Sierra, [facility] 01/19/2024 Travel 01/16/2024 5:00 PM MOISTURE TESTER - 01/16/2024 11:59 PM MOISTURE TESTER Hospital Encounter [facility] [address] [facility], 8th [place] [address] Dashawn Sutherland MD Zarate, Iris Davidson, fbi field agent Disposition: Home 01/16/2024 4:15 PM MOISTURE TESTER Ancillary Procedure [facility] [address] [facility], 4th [place] [address] Marbella Pereira PA Cholangiocarcinoma of biliary tract, NOS 01/16/2024 Travel 01/14/[address] [address] Isreal Ngo, RN 01/14/2024 Orders Only [facility] Oncology [address] [place] [address] Marbella Pereira PA Cholangiocarcinoma of biliary tract, NOS (Primary Dx) 01/14/2024 Travel 01/14/2024 Lab Requisition [facility] Ryan Loredo, Ralf Jimenes 01/14/2024 Lab Requisition [facility] Ryan Loredo, Shilpa Nicholson MD 01/12/2024 Telephone [facility] [address] [place] [address] Magnolia Spencer MA 01/09/2024 11:30 PM MOISTURE TESTER Ancillary Procedure [facility] [address] [place] [address] Dashawn Sutherland MD Cancer 01/09/2024 11:25 PM MOISTURE TESTER Ancillary Procedure [facility] [address] [place] [address] Dashawn Sutherland MD Cancer 01/09/2024 11:20 PM MOISTURE TESTER Ancillary Procedure [facility] [address] [place] [address] Dashawn Sutherland MD Cancer 01/09/2024 11:15 PM MOISTURE TESTER Ancillary Procedure [facility] [address] [place] [address] Dashawn Sutherland MD Cancer 01/09/2024 Orders Only [facility] Oncology [address] [place] [address] Marbella Pereira PA 01/08/2024 Orders Only [facility] Oncology [address] [place] [address] Marbella Pereira PA Cholangiocarcinoma of biliary tract, NOS (Primary Dx) 01/07/2024 2:35 PM MOISTURE TESTER Ancillary Procedure [address] [address] Dashawn Sutherland MD Cholangiocarcinoma of biliary tract, NOS 01/07/2024 1:00 PM MOISTURE TESTER Office Visit [facility] Medical Oncology [facility] [place] [address] Dashawn Sutherland MD Cholangiocarcinoma of biliary tract, NOS (Primary Dx) 01/07/2024 12:30 PM MOISTURE TESTER NPR MDA PATIENT ACCESS 01/07/2024 Orders Only MD [facility] - Medical Oncology [address] [place] [address] Marbella Pereira PA Cholangiocarcinoma of biliary tract, NOS (Primary Dx) 01/07/2024 Travel 01/05/2024 Orders Only Gastrointestinal Center 15[address] [facility] Main dg, 7th [place] [address] Dashawn Sutherland MD Cholangiocarcinoma of biliary tract, NOS (Primary Dx) 12/26/2023 Telephone Gastrointestinal Center [facility] Main dg, 7th [place] [address] Kristine Farias, RN after 05/13/2023 Surgical History Surgery Date Site/Laterality Comments COLONOSCOPY 2020 Clear CORONARY ARTERY BYPASS GRAFT 2013 URETERAL [...] 2020 Basal cell carcinoma of skin 2020 Anticoagulant therapy Myocardial infarction 02/2024 mild heart attack, no residual effect Prediabetes Cholangiocarcinoma Essential (primary) hypertension Neuropathy Hypothyroidism Stented coronary artery 03/10/2024 Coronary bypass graft finding Family History Medical History Relation Name Comments Pancreatic cancer Mother Verna james Relation Name Status Comments Father Nabeel James (Age 92) nattural c juan carlos Mother Verna james (Age 80) ca ncer [...] Department Care Team (Latest Contact Info) Description 05/19/2024 9:00 AM CDT Lab MD [facility] [address] [place] [address] Marbella Pereira PA [address] [place] [phone] [email or web address] 05/19/2024 10:00 AM CDT Infusion MD [facility] - Infusion [address] [place] [address] Marbella Pereira PA [address] [place] [address] [email or web address] 05/24/2024 9:45 AM CDT Hospital Encounter MAIN OR [address] [place] [address] Al Quick IV, MD [address] [place] [address] [email or web address] 05/24/2024 9:45 AM CDT - 05/24/2024 1:10 PM CDT Surgery MAIN OR [address] [place] [address] Al Quick IV, MD [address] [place] [address] [email or web address] CYSTOURETHROSCOPY WITH URETEROROSCOPY &/OR PYELOSCOPY, W/ LITHOTRIPSY AND INSERTION OF INDWELLING STENT 05/26/2024 10:20 AM CDT Consult Cardiopulmonary Center [address] [place] [address], [facility] [place] [address] Jose Finch MD [address] [place] [phone] [email or web address] Simmons MD [address] [place] [address] [email or web address] 05/26/2024 11:00 AM CDT POEM Appointments [facility] Management [facility] [address] [place] [address], 6th [place] [address] Dashawn Sutherland MD [address] [place] [address] [email or web address] 05/26/2024 1:45 PM CDT Consult Perioperative Evaluation and Management [address] [place] [address], [facility] [place] [address] Al Quick IV, MD [address] [place] [address] [email or web address] 05/31/2024 10:00 AM CDT Follow-Up MD [facility] - Medical Oncology [address] [place] [address] Dashawn Sutherland MD [address] [place] [address] [email or web address] 06/02/2024 8:30 AM CDT Lab MD [facility] Diagnostic Laboratory Center [address] [place] [address] Marbella Pereira PA [address] [place] [phone] [email or web address] 06/02/2024 9:30 AM CDT Infusion MD [facility] [address] [address] Marbella Pereira PA [address] [place] [address] 06/04/2024 10:30 AM CDT Telemedicine [facility] [address] [place] [address] [facility], Floor 7 [place] [address] Maya Quezada MD [address] [place] [address] 06/16/2024 9:00 AM CDT Lab MD [facility] Diagnostic Laboratory Center [address] [place] [address] Marbella Pereira PA [address] [place] [address] [email or web address] 06/16/2024 10:00 AM CDT Infusion MD [facility] - Infusion [address] [place] [address] Marbella Pereira, PA [address] [place] [address] [email or web address] 06/30/2024 8:00 AM CDT Lab MD [facility] Diagnostic Laboratory Center [address] [place] [address] Marbella Pereira PA [facility]5 [place] [address] [email or web address] 06/30/2024 9:00 AM CDT Infusion MD [facility] [address] [address] Marbella Pereira PA [address] [place] [address] [email or web address] 07/14/2024 8:00 AM CDT Lab MD [facility] Diagnostic Laboratory Center [address] [place] [address] Marbella Pereira, PA [address] [place] [address] [email or web address] 07/14/2024 9:00 AM CDT Infusion MD [facility] [address] Marbella Pereira, PA [address] [place] [address] [email or web address] Scheduled Procedures Name Priority Associated Diagnoses Date/Ti me CYSTOURETHROSCOPY WITH URETEROROSCOPY &/OR PYELOSCOPY, W/ LITHOTRIPSY AND INSERTION OF INDWELLING STENT Calculus of ureter 05/24/2024 9:45 AM CDT Health Maintenance Due Date Last Done Comments COVID-19 Vaccine (3 - Moderna risk series) 01/23/2021 12/26/2020, 11/29/2020 Influenza Vaccine 07/18/2024 Medical Devices Implanted Type [employer] Libr[employer] Device Identifier Shelf Expiration Date Model / [...] of biliary tract, NOS GALECTIN 3 Routine 05/04/2024 8:42 AM CDT Cholangiocarcinoma of biliary tract, NOS CARCINOEMBRYONIC ANTIGEN Routine 8:42 AM CDT Cholangiocarcinoma of biliary tract, [...] for cancer .CBC Routine 01/19/2024 2:09 PM MOISTURE TESTER Cholangiocarcinoma of biliary tract, NOS COMPREHENSIVE METABOLIC PANEL Routine 01/19/2024 2:09 PM MOISTURE TESTER Cholangiocarcinoma of biliary tract, NOS COMPLETE BLOOD COUNT W/ DIFFERENTIAL Routine 01/19/2024 2:09 PM MOISTURE TESTER Cholangiocarcinoma of biliary tract, NOS MRI ABDOMEN & PELVIS W AND WO CONTRAST Routine 01/16/2024 6:53 PM MOISTURE TESTER Cholangiocarcinoma of biliary tract, NOS .CBC Routine 01/14/2024 9:53 AM MOISTURE TESTER Cholangiocarcinoma of biliary tract, NOS CARBOHYDRATE ANTIGEN 19-9 Routine 01/14/2024 9:53 AM MOISTURE TESTER Cholangiocarcinoma of biliary tract, NOS COMPREHENSIVE METABOLIC PANEL Routine 01/14/2024 9:53 AM MOISTURE TESTER Cholangiocarcinoma of biliary tract, NOS COMPLETE BLOOD COUNT W/ DIFFERENTIAL Routine 01/14/2024 9:53 AM MOISTURE TESTER Cholangiocarcinoma of biliary tract, NOS CT CHEST WO CONTRAST Routine 01/07/2024 4:49 PM MOISTURE TESTER Cholangiocarcinoma of biliary tract, NOS POC CREATININE Routine 01/07/2024 3:57 PM MOISTURE TESTER OSI INTERVENTIONAL Routine 12/19/2023 11 :58 PM MOISTURE TESTER Cancer OSI INTERVENTIONAL Routine 12/09/2023 11 :57 PM MOISTURE TESTER Cancer OSI CT CHEST Routine 12/09/2023 11:57 PM MOISTURE TESTER Cancer OSI CT ABDOMEN AND PELVIS Routine 12/09/2023 11:57 PM MOISTURE TESTER Cancer PATHOLOGY OUTSIDE INTERPRETATION Routine 12/09/2023 PATHOLOGY OUTSIDE INTERPRETATION Routine 12/09/2023 after 05/13/2023 Results * (ABNORMAL) .CBC (05/04/2024 8:42 AM CDT) Only the most recent of11 resultswithin the time period is included. White Blood Cell 9.0 4.1 - 10.5 K/uL 05/04/2024 9:25 AM T [facility] Comment:This result was prev iously suppressed from the chart. Red Blood Cell 3.27(L) 4.30 - 6.04 M/uL 05/04/2024 9:25 AM [facility] Comment:This result was prev iously suppressed from the chart. Hemoglobin 10.2(L) 13.3 - 17.4 g/dL 05/04/2024 9:25 AM T [facility] Comment:This result was prev iously suppressed from the chart. Hematocrit 31.1(L) 39.5 - 51.8 % 05/04/2024 9:25 AM CDT [facility] Comment:This result was prev iously suppressed from the chart. Mean Cell Volume 95 82 - 99 fL 05/04/2024 9:25 AM [facility] Comment:This result was prev iously suppressed from the chart. Mean Cell Hemoglobin 31.2 26.6 - 33.2 pg 05/04/2024 9:25 AM [facility] Comment:This result was prev iously suppressed from the chart. Mean Cell Hemoglobin Concentration 32.8 31.1 - 35.2 g/dL 05/04/2024 9:25 AM [facility] Comment:This result was prev iously suppressed from the chart. RDW-SD 55.4(H) 37.5 - 49.7 fL 05/04/2024 9:25 AM [facility] Comment:This result was prev iously suppressed from the chart. Red Cell Diameter Width 16.0(H) 11.6 - 15.5 % 05/04/2024 9:25 AM [facility] Comment:This result was prev iously suppressed from the chart. Platelet 185 160 - 397 K/uL 05/04/2024 9:25 AM [facility] Comment:This result was prev iously suppressed from the chart. Mean Platelet Volume 9.6 9.1 - 12.6 fL 05/04/2024 9:25 AM [facility] Comment:This result was prev iously suppressed from the chart. Blood Peripheral blood specimen / Unknown Port / Unknown 05/04/2024 8:42 AM CDT 05/04/2024 8:49 AM CDT Marbella GRAJEDA LAB BLOOD ORDERABLES [facility] Cancer [facility] [address] [facility], [facility] [address] [place] [address] * (ABNORMAL) Comprehensive Metabolic Panel (05/04/2024 8:42 AM CDT) Only the most recent of11 resultswithin the time period is included. Bilirubin Total <0.3 0.0 - 1.2 mg/dL 05/04/2024 9:16 AM [facility] Comment:Indocyanine Green (I CG) may cause falsely elevated bilirubin results. Total and direct bilirubin must not be measured from samples containing indocyanine green. False elevation of total bilirubin can be seen in patients with IgG concentrations above 28 g/L. eGFR 50(L) >=60 mL/min/1. 73 sq. m 05/04/2024 9:16 AM [facility] Comment: The eGFRcr is calculated with the [...] 6.4 - 8.3 gm/dL 05/04/2024 9:16 AM [facility] Calcium Level Total 9.3 8.2 - 10.2 mg/dL 05/04/2024 9:16 AM [facility] Alkaline Phosphatase 150(H) 40 - 129 U/L 05/04/2024 9:16 AM [facility] Albumin Level 3.5 3.5 - 5.2 gm/dL 05/04/2024 9:16 AM [facility] AST 41(H) <=40 U/L 05/04/2024 9:16 AM [facility] ALT 41 <=41 U/L 05/04/2024 9:16 AM [facility] Sodium Level 136 136 - 145 mmol/L 05/04/2024 9:16 AM [facility] Potassium Level 3.9 3.4 - 4.5 mmol/L 05/04/2024 9:16 AM [facility] Chloride 102 98 - 107 mmol/L 05/04/2024 9:16 AM [facility] CO2 19(L) 22 - 29 mmol/L 05/04/2024 9:16 AM [facility] Anion Gap 15(H) 4 - 14 mmol/L 05/04/2024 9:16 AM [facility] Creatinine 1.43(H) 0.67 - 1.17 mg/dL 05/04/2024 9:16 AM [facility] BUN 23 6 - 23 mg/dL 05/04/2024 9:16 AM [facility] Glucose Level 70 70 - 99 mg/dL 05/04/2024 9:16 AM [facility] Comment: Effective 06/12/16, the glucose reference intervals have been updated based on [place] [employer] guidelines (Standards of Medical Care [...] AM CDT Marbella GRAJEDA LAB BLOOD ORDERABLES [facility] [address] [facility], [facility] [address] [place] [address] * Galectin-3 (05/04/2024 8:42 AM CDT) Only the most recent of2 resultswithin the time period is included. Galectin3 [place] 19.3 <=22.1 ng/mL 05/10/2024 10:49 AM CDT [facility] Comment: Elevated galectin-3 is associated with greater cardiovascular risk and poor outcome in heart failure patients: </= 17.8 ng/mL (low risk); 17.9-25.9 ng/mL (intermediate risk); >25.9 ng/mL (high risk). Results should be interpreted in the context of the individual patient presentation. Test Performed by: [address] [address] Journal Clerk: Mau Thakkar Ph.D.; CLIA# [id number] Blood Peripheral blood specimen / Unknown Port / Unknown 05/04/2024 8:42 AM CDT 05/04/2024 8:49 AM CDT [facility] Kelli RI LAB BLOOD ORDERABLES Performing Organization Address City/[facility]/ZIP Co de Phone Number [facility] * CA 19-9 (05/04/2024 8:42 AM CDT) Only the most recent of6 resultswithin the time period is included. CA 19-9 29.5 <=35.0 U/mL 05/04/2024 9: 29 AM CDT [facility] Blood Peripheral blood specimen / Unknown Port / Unknown 05/04/2024 8:42 AM CDT 05/04/2024 8:49 AM CDT [facility] - 05/04/2024 9:29 AM CDT Results greater than 9500 U/mL may not be reliable due to matrix effect with extended dilution as it exceeds the brand advocate's recommended limit. Caution should be exercised when interpreting such values and done in conjunction with clinical context. This test is measured by electrochemiluminescence immunoassay on [employer] Kat immunoassay analyzers. Results obtained in different methods are not interchangeable. Marbella GRAJEDA LAB BLOOD ORDERABLES [facility] Cancer [facility] [address] [facility], [facility] [address] [place] [address] * (ABNORMAL) Differential (05/04/2024 8:42 AM CDT) Only the most recent of4 resultswithin the time period is included. Total Cells 100 05/04/2024 9:25 AM [facility] Manual Neutrophil % 63.0 43.2 - 72.7 % 05/04/2024 9:25 AM [facility] Comment:The Neutrophil count includes Bands. Manual Lymphocyte % 8.0(L) 16.8 - 46.2 % 05/04/2024 9:25 AM [facility] Manual Monocyte % 29.0(H) 5.1 - 12.5 % 05/04/2024 9:25 AM [facility] Metamyelocyte % 9:25 AM [facility] Comment:The Metamyelocyte co unt includes Myelocytes. Manual Neutrophil Abs 5.67 1.95 - 7.25 K/uL 05/04/2024 9:25 AM [facility] Manual Lymphocyte Abs 0.72(L) 1.01 - 3.24 K/uL 05/04/2024 9:25 AM [facility] Manual Monocyte Abs 2.61(H) 0.24 - 0.85 K/uL 05/04/2024 9:25 AM [facility] RBC Morphology PRESENT 05/04/2024 9:25 AM [facility] PLT Morph Normal Normal 05/04/2024 9:25 AM [facility] Anisocytosis Present(A) (none) 05/04/2024 9:25 AM [facility] Blood Peripheral blood specimen / Unknown Port / Unknown 05/04/2024 8:42 AM CDT 05/04/2024 8:49 AM CDT Marbella GRAJEDA LAB BLOOD ORDERABLES Performing Organization Address City/State/[facility] Co de Phone Number TRISHA [facility] TAYLOR [address] [facility] [address] [place] [address] * (ABNORMAL) TSH (05/04/2024 8:42 AM CDT) Only the most recent of4 resultswithin the time period is included. Thyroid Stimulating Hormone 85.68(H) 0.27 - 4.20 mcunit/mL 05/04/2024 9:29 AM [facility] Blood Peripheral blood specimen / Unknown Port / Unknown 05/04/2024 8:42 AM CDT 05/04/2024 8:49 AM CDT Marbella GRAJEDA LAB BLOOD ORDERABLES Performing Organization Address [facility] Co de Phone Number [address] [address] * (ABNORMAL) Free T4 (05/04/2024 8:42 AM CDT) Only the most recent of4 resultswithin the time period is included. T4 (Thyroxine) Free 0.57(L) 0.93 - 1.70 ng/dL 05/04/2024 9:29 AM CDT [facility] Blood Peripheral blood specimen / Unknown Port / Unknown 05/04/2024 8:42 AM CDT 05/04/2024 8:49 AM CDT Marbella GRAJEDA LAB BLOOD ORDERABLES Performing Organization Address City/[facility] Co de Phone Number [address] [address] * CEA (05/04/2024 8:42 AM CDT) Only the most recent of4 resultswithin the time period is included. Carcinoembryonic Antigen 3.2 <=3.8 ng/mL 05/04/2024 9:29 AM CDT [facility] Blood Peripheral blood specimen / Unknown Port / Unknown 05/04/2024 8:42 AM CDT 05/04/2024 8:49 AM CDT Adin TAYLOR - 05/04/2024 9:29 AM CDT Reference Ranges (age 20-69 years): Non-smoker: 0.0 - 3.8 ng/mL Smoker: 0.0 - 5.5 ng/mL This test is measured by electrochemiluminescence immunoassay on Parker Kat immunoassay analyzers. Results obtained in different methods are not interchangeable. Marbella GRAJEDA LAB BLOOD ORDERABLES Performing Organization Address [facility] Co de Phone Number [facility] TAYLOR [address] [facility], [facility] [address] [place] [address] * CT Chest Abdomen Pelvis with and [...] actionable. Marbella GRAJEDA IMG CT ORDERABLES * (ABNORMAL) Hemoglobin A1c (02/24/2024 7:23 AM CDT) Hemoglobin A1c 8.0(H) 4.3 - 5.6 % 02/24/2024 5:38 PM CDT [facility] Blood Venous blood specimen / Unknown Port / Unknown 02/24/2024 7:23 AM CDT 02/24/2024 7:27 AM CDT Narrative TAYLOR - 02/24/2024 5:38 PM CDT HbA1c values >=6.5% are diagnostic of diabetes mellitus. Diagnosis should be confirmed by repeat testing. Therapeutic Action suggested: >8.0% HbA1c; Goal of therapy: <7.0% HbA1c Dashawn Sutherland MD LAB BLOOD ORDERABLES Performing Organization Address City/State/[facility] Co de Phone Number [facility] [address] [facility], [facility] [address] [place] [address] * CT Abdomen Pelvis without Contrast (02/05/2024 [...] 1,432(H) <=450 pg/mL 01/27/2024 3:01 PM CDT [facility] Blood Peripheral blood specimen / Unknown Port / Unknown 01/27/2024 9:16 AM CDT 01/27/2024 9:17 AM CDT Jose Finch MD LAB BLOOD ORDERABLES [facility] Unless otherwise noted, all lab tests performed by: Division of Pathology and Laboratory Medicine [address] [place] [address] * Troponin I (Sendout) (01/27/2024 9:16 AM CDT) Pathologist [facility] Troponin-I 27 <=78 01/28/2024 7:08 AM CDT [facility], [facility] Blood Peripheral blood specimen / Unknown Port / Unknown 01/27/2024 9:16 AM CDT 01/27/2024 9:17 AM CDT Narrative [facility] - 01/28/2024 7:08 AM CDT Based on the Third [place] Definition of Mycocardial Infarction, the 99th percentile upper reference limit of Troponin I for a healthy population is <0.03 ng/mL. Jose Finch MD LAB BLOOD ORDERABLES [facility], [facility] [address] [place] [address], * (ABNORMAL) Troponin T (In-House) (01/27/2024 9:16 AM CDT) Pathologist [facility] Troponin T 34(H) <=19 ng/L 01/27/2024 2:57 PM CDT [facility] Blood Peripheral blood specimen / Unknown Port / Unknown 01/27/2024 9:16 AM CDT 01/27/2024 9:17 AM CDT Narrative [facility] - 01/27/2024 2:57 PM CDT Reference [...] MD LAB BLOOD ORDERABLES Performing Organization Address City/[facility]/ZIP Co de Phone Number [facility] Unless otherwise noted, all lab tests performed by: Division of Pathology and Laboratory Medicine [address] [place] [address] * CKMB (01/27/2024 9:16 AM CDT) [facility] CKMB <2.0 <=10.4 ng/mL 01/27/2024 3:01 PM CDT [facility] Blood Peripheral blood specimen / Unknown Port / Unknown 01/27/2024 9:16 AM CDT 01/27/2024 9:17 AM CDT Jose Finch MD LAB BLOOD ORDERABLES [facility] Unless otherwise noted, all lab tests performed by: Division of Pathology and Laboratory Medicine [address] [place] [address] * Creatine Kinase (01/27/2024 9:16 AM CDT) Creatine Kinase 41 39 - 308 U/L 01/27/2024 3:01 PM CDT [facility] Blood Peripheral blood specimen / Unknown Port / Unknown 01/27/2024 9:16 AM CDT 01/27/2024 9:17 AM CDT Jose Finch MD LAB BLOOD ORDERABLES [facility] Unless otherwise noted, all lab tests performed by: Division of Pathology and Laboratory Medicine [address] [place] [id number] * (ABNORMAL) Lipid Panel (01/27/2024 9:16 AM CDT) Pathologist [facility] Cholesterol Total 142 <=199 mg/dL 01/27/2024 9:55 AM [facility] Comment: ATP III Classification of Total Cholesterol - Primary Target of Therapy (in mg/dL): <200 Desirable 200-239 Borderline high >=240 High Triglyceride 210(H) <=149 mg/dL 01/27/2024 9:55 AM [facility] Comment: ATP III Classification of Serum Triglycerides Primary Target of Therapy (in mg/dL): <150 Normal 150-199 Borderline high 200-499 High >=500 Very high Non-fasting triglycerides >200 mg/dL may be followed up with a fasting Lipid Panel. Calculated LDL-C may be falsely decreased when non-fasting triglycerides >200 mg/dL. HDL Cholesterol 39(L) >=40 mg/dL 01/27/2024 9:55 AM [facility] LDL Cholesterol 61 <=100 mg/dL 01/27/2024 9:55 AM [facility] Comment: ATP III Classification of LDL Cholesterol Primary Target of Therapy (in mg/dL): <100 Optimal 100-129 Near optimal/above optimal 130-159 Borderline high 160-189 High >=190 Very high Very Low Density Lipoprotein 42 mg/dL 01/27/2024 9:55 AM [facility] Is patient fasting? Yes 01/26 9:55 AM [facility] Blood Peripheral blood specimen / Unknown Port / Unknown 01/27/2024 9:16 AM CDT 01/27/2024 9:17 AM CDT Jose Finch MD LAB BLOOD ORDERABLES [facility] TRISHA ASHRAF [address] [facility], [address] [address] [place] [address] * Tip Verification Central Vascular Access Device [...] with and without Contrast (01/16/2024 6:53 PM MOISTURE TESTER) Anatomical Region Laterality Modality Abdomen Magnetic Resonan ce 01/17/2024 5:58 AM MOISTURE TESTER Impressions 01/17/2024 7:20 AM MOISTURE TESTER Impression: 1. The primary tumor within the [...] ITEMS/RECOMMENDATIONS*: See impression. Narrative 01/17/2024 7:20 AM MOISTURE TESTER Examination: MRI ABDOMEN & PELVIS W AND [...] dated 12/09/2023 and ERCP images from ERCP 2. Comparison is also made with [...] pelvis dated 12/09/2023 and ERCP imagesfrom ERCP 2-24. Comparison is also made with CT chest [...] in the segment 8 liver dome medially ([id number], image 174) shows corresponding T2 hyperintensity (series [...] lymphadenopathy. ACTIONABLE ITEMS/RECOMMENDATIONS*: See impression. Marbella GRAJEDA Laurence MRI ORDERABLES * CT Chest without Contrast (01/07/2024 4:49 PM MOISTURE TESTER) Anatomical Region Laterality Modality Chest Computed Tomogra phy 01/08/2024 7:15 AM MOISTURE TESTER Impressions 01/08/2024 7:30 AM MOISTURE TESTER Calcified and noncalcified pulmonary nodules may be sequela of granulomatous disease. Follow-up to ensure stability exclude metastatic disease can be performed. Bilateral peripheral lower lung reticular opacities concerning for scarring/fibrosis. Additional opacities in the right lower lobe most likely due to atelectasis or scarring and clinical correlation and follow-up is recommended. ACTIONABLE ITEMS/RECOMMENDATIONS*: See impression. Narrative 01/08/2024 7:30 AM MOISTURE TESTER FULL RESULT: Examination: CT CHEST WO CONTRAST [...] recommended. ACTIONABLE ITEMS/RECOMMENDATIONS*: See impression. Marbella GRAJEDA IMG CT ORDERABLES * (ABNORMAL) POC Creatinine (01/07/2024 3:57 PM MOISTURE TESTER) POC Creatinine 1.9(H) 0.6 - 1.3 mg/dL 01/07/2024 4:00 PM [facility] Comment:Medications, especia lly hydroxyurea or supplements, such as ascorbate, can interfere with test results causing a falsely and significantly higher result than expected. If a problem is suspected with a patient's result, a sample should be sent to the laboratory for confirmatory testing. POC eGFR 35(L) >=60 mL/min/1.7 3 sq. m 01/07/2024 4:00 PM [facility] Comment: The eGFRcr is calculated with the [...] criteria for CKD. Blood 01/07/2024 3:57 PM MOISTURE TESTER 01/07/2024 4:00 PM MOISTURE TESTER Narrative TAYLOR - 01/07/2024 4:00 PM MOISTURE TESTER Method description: The i-STAT is an analyzer [...] Sutherland MD POCT ORDERABLES - DE VICE [facility] [address] [facility], [facility] [address] [place] [address] * OSI Interventional (12/19/2023 11:58 PM MOISTURE TESTER) Only the most recent of2 resultswithin the time period is included. Narrative Systemgenerated, Documentation - 01/09/2024 11:58 PM MOISTURE TESTER Study acquired at another institution. For comparison only. No MD Landon originated interpretation requested or available. Dashawn Sutherland MD IMG OUTSIDE IMAGE OR DERABLES * OSI CT Chest (12/09/2023 11:57 PM MOISTURE TESTER) Narrative Systemgenerated, Documentation - 01/09/2024 11:57 PM MOISTURE TESTER Study acquired at another institution. For comparison only. No MD Landon originated interpretation requested or available. Dashawn PAGEG OUTSIDE IMAGE OR DERABLES * OSI CT Abdomen and Pelvis (12/09/2023 11:57 PM MOISTURE TESTER) Narrative Systemgenerated, Documentation - 01/09/2024 11:57 PM MOISTURE TESTER Study acquired at another institution. For comparison only. No MD Landon originated interpretation requested or available. Dashawn JO OUTSIDE IMAGE OR DERABLES * Pathology Outside Interpretation (12/09/2023) Only the most recent of2 resultswithin the time period is included. Materials Received Accession#, Stained, Block, Unstained Collected Received A. [id number], 4 SS, 0 BLOCKS, 0 USS 12/09/2023 01/14/2024 01/15/2024 11:40 AM MOISTURE TESTER [facility] Diagnosis Received 4 slides ([id number]) designated common bile duct, brushing: Rare atypical cell clusters 01/15/2024 11:40 AM MOISTURE TESTER [facility] Comment Scant cellularity precludes a more definitive characterization. See also the [facility] review ([id number]) of the concurrent biopsy. 01/15/2024 11:40 AM MOISTURE TESTER [facility] Disclaimer "Some tests reported here may have been developed and performance characteristics determined by [facility]. These tests have not been specifically cleared or approved by the U.S. Food and Drug Administration. If applicable, controls were reviewed and showed appropriate reactivity." 01/15/2024 11:40 AM [facility] Tissue 12/09/2023 01/14/2024 11: 40 AM MOISTURE TESTER Ralf Pelayo LAB PATHOLOGY ORDERA CANDIE [facility] [place] [address], after 05/13/2023 Additional Health Concerns Infection Onset Date Last Indicated Confirmed COVID-19 Comment:Mr. James tested positive for COVID on 05/05/24 at an ER in [place] per [facility] 05/05/2024 05/06/2024 Care Teams Sports Umpire Relationship Specialty Start Date End Date Al Carrasco MD [address] [place] [address] [email or web address] PCP - External Follow Up A General Surgery 12/26/23 Dashawn Sutherland MD [address] [place] [phone] [email or web address] PCP - General Gastrointestinal Medical Oncology 01/05/24 Al Quick IV, MD [address] [place] [phone] [email or web address] Consulting Physician Urology 04/09/24
[2024-05-12] MEDS ORDERED: CEFTRIAXONE 1000 MG/VIAL ONE (08:30)
[2024-05-12] MEDS ORDERED: FAMOTIDINE 20 MG/2 ML VIAL IV ONE (08:30)
[2024-05-12] MEDS ORDERED: Levofloxacin500mg IV 500 MG/100 ML BAG IV ONE (08:30)
[2024-05-12] MEDS ORDERED: NA CHLORIDE 0.9% 2,000 ML ONE (08:31)
[2024-05-12] MEDS ORDERED: NA CHLORIDE 0.9% 50 ML ONE (08:31)
[2024-05-12 08:39] LABS: PT Prothrombin Time 11.5 SECONDS (9.4-12.5); Protime INR 1.05
[2024-05-12 08:45] LABS: SARS-CoV-2 Antigen CONTROL BLUE LINE VIS/BG OK; SARS-CoV-2 Antigen Rapid Res Negative (Negative)
--- NOTE | 2024-05-12 08:59 | RAD REPORT ---
EXAM DESCRIPTION: CT - Chest Abd Pelvis Wo Con - 05/12/2024 8:38 am CLINICAL HISTORY: Cough and abdominal pain. Bile duct cancer COMPARISON: May 05, 2024 TECHNIQUE: Computed axial tomography of the chest, abdomen and pelvis was obtained. Oral contrast wa s given. IV contrast was not requested. All CT scans are performed using dose optimization technique as appropriate and may include automated exposure control or mA/KV adjustment according to patient size. FINDINGS: The evaluation of mediastinum, deion, vessels and solid organs is limited secondary to the lack of IV contrast administration Mild to moderate chronic appearing interstitial opacities within the lungs. No mediastinal or hilar lymphadenopathy is seen. Coronary arterial calcifications. A pleural effusion is not present. A pericardial effusion is not seen. Biliary stent in place with pneumobilia. Cholecystectomy. Spleen, pancreas and adrenals grossly normal. A right ureteral stent in place. A 1.3 centimeter calculus proximal right ureter. Mild right hydronep hrosis. Bilateral renal calculi. No left hydronephrosis. Small cyst. There is no evidence of diverticulitis. Normal appendix. Mild prostatic enlargement Duodenal diverticulum 6 centimeter fatty structure right greater omentum without significant change probably infarct. Starla novak within the surrounding fat IMPRESSION: 1.3 centimeter calculus proximal right ureter. Right ureteral stent in place. Mild right hydronephrosis unchanged from prior exam Biliary stent with pneumobilia. 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
--- NOTE | 2024-05-12 09:11 | RAD REPORT ---
EXAM DESCRIPTION: Ashlyn Single View05/12/2024 8:29 am CLINICAL HISTORY: Cough COMPARISON: February 2024 FINDINGS: Mild chronic appearing interstitial opacities within the lung bases Lungs appear clear of acute infiltrate Heart is mildly enlarged Postsurgical changes involve the chest. Central venous line with its tip in the proximal superior cava IMPRESSION: No acute abnormalities displayed
[2024-05-12 10:12] LABS: Absolute Lymphocytes (CBC) 0.7 K/uL (0.7-4.9); Absolute Monocytes 0.6 K/uL (0.1-1.3); Absolute Neutrophil 1.4 K/uL (1.8-8.0); Basophils % 0.2 % (0-1.3); Eosinophils % 1.3 % (0-4.4); Hematocrit 24.3 % (39.6-49.0); Hemoglobin 8.1 g/dL (13.6-17.9); MCH 30.8 pg (27.0-35.0); MCHC 33.4 g/dL (32.0-36.0); Monocytes % 23.1 % (3.3-12.3); Neutrophils % 49.4 % (41.7-73.7); Nucleated Red Blood Cells % 0.7 % (0-0); Platelets 61 thou/uL (152-406); RBC Red Blood Cell Count 2.65 M/uL (4.33-5.43); Red Cell Distribution Width 17.2 % (12.1-15.2)
[2024-05-12 10:25] LABS: ALT/SGPT 172 U/L (16-61); AST/SGOT 164 U/L (15-37); Albumin 2.3 g/dL (3.4-5.0); Albumin/Globulin Ratio 0.5 (1.1-1.8); Alkaline Phosphatase 203 U/L (45-117); BUN Blood Urea Nitrogen 23 mg/dL (7-18); Bicarbonate 23 mEq/L (21-32); Bilirubin Total 0.2 mg/dL (0.2-1.0); Globulin 4.6 g/dL (2.3-3.5); Glomerular Filtration Rate 60 ml/min (=/>90); Glucose Level 185 mg/dL (74-106); Lipase 112 U/L (13-75); Magnesium 1.5 mg/dL (1.6-2.4); NT PRO-BNP 456 pg/mL (<450); Protein, Total 6.9 g/dL (6.4-8.2); Sodium Level 139 mEq/L (136-145); Troponin High Sensitivity 39.7 pg/mL (<58.9)
[2024-05-12 10:26] LABS: Bilirubin Direct < 0.2 mg/dL (0-0.2)
--- NOTE | 2024-05-12 10:35 | ER ---
Nurse's Notes [facility] Name: Nnamdi Flores III Age: 78 yrs Sex: Male : 1945 Arrival Date: 05/12/2024 Time: 07:13 Bed 17 Private MD: Diagnosis: Hydronephrosis with renal and ureteral calculous obstruction-with double j stent;Abdominal pain, unspecified-omental infarct, CBD CANCER, ON CHEMO, WITH STENT;Neutropenia, unspecified;Sepsis, unspecified organism Presentation: 05/12 07:46 Chief complaint: Patient states: was called and told that he has e coli in his blood iw stream and to come back to ER , was here last week for COVID and he is on chemo. 07:47 Coronavirus screen: Client presents with at least one sign or symptom that may indicate iw coronavirus-19. Ebola Screen: Patient negative for fever greater than or equal to 101.5 degrees Fahrenheit, and additional compatible Ebola Virus Disease symptoms Patient denies exposure to infectious person. Patient denies travel to an Ebola-affected area in the 21 days before illness onset. No symptoms or risks identified at this time. Initial Sepsis Screen: Does the patient meet any 2 criteria? No. Patient's initial sepsis screen is negative. Does the patient have a suspected source of infection? No. Patient's initial sepsis screen is negative. Risk Assessment: Do you want to hurt yourself or someone else? Patient reports no desire to harm self or others. Onset of symptoms was May 12, 2024. 07:47 Method Of Arrival: Ambulatory iw 07:47 Acuity: DAMION 3 iw Historical: - Allergies: 07:48 Morphine; iw 07:48 Sulfa (Sulfonamide Antibiotics); iw - PMHx: 07:48 BILE DUCT CANCER (Hypothyroidism); BPH; coronary atherosclerosis; Hypertensive iw disorder; Hypothyroidism; - Immunization history:: Adult Immunizations unknown. - Infectious Disease History:: Denies. - Family history:: not pertinent. - Social history:: Smoking status: Patient denies any tobacco usage or history of. Screenin:00 [facility] ED Fall Risk Assessment (Adult) History of falling in the last 3 months, db including since admission No falls in past 3 months (0 pts) Confusion or Disorientation No (0 pts) Intoxicated or Sedated No (0 pts) Impaired Gait No (0 pts) Mobility Assist Device Used No (0 pt) Altered Elimination No (0 pt) Score/Fall Risk Level 0 - 2 = Low Risk Oriented to surroundings, Maintained a safe environment. Abuse screen: Denies threats or abuse. Denies injuries from another. Nutritional screening: No deficits noted. Tuberculosis screening: No symptoms or risk factors identified. Assessment: 09:00 Reassessment: Patient appears in no apparent distress at this time. Patient and/or db family updated on plan of care and expected duration. Pain level reassessed. Patient is alert, oriented x 3, equal unlabored respirations, skin warm/dry/pink. General: Appears in no apparent distress. comfortable, Behavior is calm, cooperative. Pain: Denies pain. Neuro: Level of Consciousness is awake, alert, obeys commands, Oriented to person, place, time, situation. Respiratory: Airway is patent Respiratory effort is even, unlabored, Respiratory pattern is regular, symmetrical. 11:31 Reassessment: REPORT GIVEN TO FLORECITA NASCIMENTO AT [facility] ER. db 11:47 Reassessment: Patient appears in no apparent distress at this time. Patient and/or db family updated on plan of care and expected duration. Pain level reassessed. Patient is alert, oriented x 3, equal unlabored respirations, skin warm/dry/pink. Patient states feeling better. 12:00 Reassessment: PATIENT REPORTS BLOOD IN URINE. : Reports discharge, bloody. db 12:32 Reassessment: Patient appears in no apparent distress at this time. Patient and/or db family updated on plan of care and expected duration. Pain level reassessed. Patient is alert, oriented x 3, equal unlabored respirations, skin warm/dry/pink. EMS ARRIVAL FOR PATIENT TRANSPORT TO [facility]. Vital Signs: 07:47 BP 143 / 83; Pulse 74; Resp 16; Temp 98.6(O); Pulse Ox 99% on R/A; iw 10:15 BP 160 / 62; Pulse 65; Resp 20; Pulse Ox 100% on R/A; db 10:45 BP 137 / 64; Pulse 67; Resp 18; Pulse Ox 99% on R/A; db 11:15 BP 139 / 67; Pulse 67; Resp 18; Pulse Ox 100% on R/A; db 12:32 BP 144 / 76; Pulse 70; Resp 18; Pulse Ox 100% ; db ED Course: 07:17 Patient arrived in ED. mg5 07:25 Andi Navarrete MD is Attending Physician. ayala 07:48 Triage completed. iw 07:48 Arm band placed on. iw 08:15 Cassie Gonzalez, TORREY is Primary Nurse. db 08:15 Missed attempt(s): 24 gauge in right forearm. bc6 08:28 SARS RAPID Sent. bc6 08:28 Lipase Sent. bc6 08:28 Lactate w/ 2H reflex if indic. Sent. bc6 08:28 Basic Metabolic Panel Sent. bc6 08:28 CBC with Diff Sent. bc6 08:28 LFT's Sent. bc6 08:28 Magnesium Sent. bc6 08:28 NT PRO-BNP Sent. bc6 08:29 PT-INR Sent. bc6 08:29 Troponin HS Sent. bc6 08:29 Initial lab(s) drawn, by me, sent to lab. COVID swab sent to lab. Inserted saline lock: bc6 24 gauge in right forearm, using aseptic technique. Blood collected. 08:31 XRAY Chest (1 view) In Process Unspecified. EDMS 08:40 CT Chest Abdomen Pelvis W/O Contrast In Process Unspecified. EDMS 10:32 Tracy Trinh MD is Hospitalizing Provider. ayala 10:39 Patient has correct armband on for positive identification. Bed in low position. Call db light in reach. Side rails up X 1. Client placed on continuous cardiac and pulse oximetry monitoring. NIBP monitoring applied. electronic device monitor on. Pulse ox on. NIBP on. Warm blanket given. Pillow given. 12:32 Provided Education on: DISCHARGE. db 12:32 No provider procedures requiring assistance completed. Patient transferred, IV remains db in place. Administered Medications: 07:58 CANCELLED (Duplicate Order): [id number] mg 150 ml IVPB once over 90 mins ayala 08:58 Drug: NS 0.9% IV 1000 ml IV at 1 bolus Per protocol; 1000 mL bolus Route: IV; Rate: 1 db bolus; Site: right forearm; 12:35 Follow up: Response: No adverse reaction; IV Status: Completed infusion; IV Intake: 50mldb 08:58 Drug: Famotidine IVP 20 mg IVP once; dilute with 10 mL 0.9% NaCl; give over 2 minutes db Route: IVP; Site: right forearm; 10:38 Follow up: Response: No adverse reaction db 10:15 Drug: Rocephin IV 1 grams IV at per protocol once; Given slow IV push per pharmacy db instructions Route: IV; Rate: per protocol; Site: left forearm; 12:35 Follow up: Response: No adverse reaction; IV Status: Completed infusion; IV Intake: 50mldb 10:30 Drug: NS 0.9% IV 1000 ml IV at 125 ml/hr continuous Route: IV; Rate: 125 ml/hr; Site: db right forearm; 12:35 Follow up: Response: No adverse reaction; IV Status: Infusion continued upon transfer db 10:36 Drug: levofloxacin IVPB 500 mg 100 ml IVPB once over 60 mins Volume: 100 ml; Route: db IVPB; Infused Over: 60 mins; Site: right forearm; 12:34 Follow up: Response: No adverse reaction; IV Status: Completed infusion; IV Intake: db 100ml 10:45 Drug: Magnesium Sulfate IVPB 1 grams IVPB once over 1 hrs Route: IVPB; Infused Over: 1 db hrs; Site: left forearm; 12:34 Follow up: Response: No adverse reaction; IV Status: Completed infusion; IV Intake: db 100ml Medication: 12:32 VIS not applicable for this client. db Intake: 12:34 IV: 100ml; Total: 100ml. db 12:34 IV: 100ml; Total: 200ml. db 12:35 IV: 50ml; Total: 250ml. db 12:35 IV: 50ml; Total: 300ml. db Outcome: 10:35 Decision to Hospitalize by Provider. ayala 11:12 ER care complete, transfer ordered by . ayala 12:32 Transferred by ground EMS to [facility], Transfer form completed. X-rays sent db w/ patient. 12:32 Condition: stable 12:32 Instructed on the need for transfer, 12:35 Patient left the ED. db Signatures: Dispatcher [employer] EDAndi Rubio MD MD cha Williams, Irene, RN RN iw Benton, Danielle, RN RN db Carowatson, Breana bc6 Rukhsana Chase mg5 Corrections: (The following items were deleted from the chart) 07:48 07:46 Chief complaint: Patient states: was called and told that he has e coli in his iw blood stream and to come back to ER iw 07:54 07:47 BP 143 / 83; Pulse 74bpm; Resp 16bpm; Pulse Ox 99% RA; Temp 96.5F; iw iw
--- NOTE | 2024-05-12 10:36 | EDPHYS ---
Physician Documentation [facility] Name: Nnamdi Flores III Age: 78 yrs Sex: Male : 1945 Arrival Date: 05/12/2024 Time: 07:13 Bed 17 Private MD: ED Physician Andi Navarrete HPI: 05/12 10:22 This 78 yrs old Male presents to ER via Ambulatory with complaints of Told To ayala Come To ER. 10:22 The patient presents with abdominal pain in the upper abdomen, in the lower abdomen, ayala abdominal distention. Onset: The symptoms/episode began/occurred 2 day(s) ago. weak, bc pos e coli anaerobic bc bottles. Onset: The symptoms/episode began/occurred 8 day(s) ago. The symptoms do not radiate. Associated signs and symptoms: none. Modifying factors: The symptoms are alleviated by nothing, the symptoms are aggravated by nothing. Severity of pain: At its worst the pain was moderate in the emergency department the pain has improved moderately. Historical: - Allergies: 07:48 Morphine; iw 07:48 Sulfa (Sulfonamide Antibiotics); iw - PMHx: 07:48 BILE DUCT CANCER (Hypothyroidism); BPH; coronary atherosclerosis; Hypertensive iw disorder; Hypothyroidism; - Immunization history:: Adult Immunizations unknown. - Infectious Disease History:: Denies. - Family history:: not pertinent. - Social history:: Smoking status: Patient denies any tobacco usage or history of. ROS: 10:22 Constitutional: Negative for fever, chills, and weight loss, Eyes: Negative for injury, ayala pain, redness, and discharge, ENT: Negative for injury, pain, and discharge, Neck: Negative for injury, pain, and swelling, Cardiovascular: Negative for chest pain, palpitations, and edema, Respiratory: Negative for shortness of breath, cough, wheezing, and pleuritic chest pain, Back: Negative for injury and pain, : Negative for injury, bleeding, discharge, and swelling, MS/Extremity: Negative for injury and deformity, Neuro: Negative for headache, weakness, numbness, tingling, and seizure, Psych: Negative for depression, anxiety, suicide ideation, homicidal ideation, and hallucinations, Allergy/Immunology: Negative for hives, rash, and allergies, Endocrine: Negative for neck swelling, polydipsia, polyuria, polyphagia, and marked weight changes, Hematologic/Lymphatic: Negative for swollen nodes, abnormal bleeding, and unusual bruising, 10:22 Abdomen/GI: Positive for abdominal pain, of the suprapubic area and right upper quadrant, Exam: 10:22 Constitutional: This is a well developed, well nourished patient who is awake, alert, ayala and in no acute distress. Head/Face: Normocephalic, atraumatic. Eyes: Pupils equal round and reactive to light, extra-ocular motions intact. Lids and lashes normal. Conjunctiva and sclera are non-icteric and not injected. Cornea within normal limits. Periorbital areas with no swelling, redness, or edema. ENT: Nares patent. No nasal discharge, no septal abnormalities noted. Tympanic membranes are normal and external auditory canals are clear. Oropharynx with no redness, swelling, or masses, exudates, or evidence of obstruction, uvula midline. Mucous membranes moist. Neck: Trachea midline, no thyromegaly or masses palpated, and no cervical lymphadenopathy. Supple, full range of motion without nuchal rigidity, or vertebral point tenderness. No Meningismus. Chest/axilla: Normal chest wall appearance and motion. Nontender with no deformity. No lesions are appreciated. Cardiovascular: Regular rate and rhythm with a normal S1 and S2. No gallops, murmurs, or rubs. Normal PMI, no JVD. No pulse deficits. Respiratory: Lungs have equal breath sounds bilaterally, clear to auscultation and percussion. No rales, rhonchi or wheezes noted. No increased work of breathing, no retractions or nasal flaring. Back: No spinal tenderness. No costovertebral tenderness. Full range of motion. Male : Normal genitalia with no discharge or lesions. MS/ Extremity: Pulses equal, no cyanosis. Neurovascular intact. Full, normal range of motion. Neuro: Awake and alert, GCS 15, oriented to person, place, time, and situation. Cranial nerves II-XII grossly intact. Motor strength 5/5 in all extremities. Sensory grossly intact. Cerebellar exam normal. Normal gait. Psych: Awake, alert, with orientation to person, place and time. Behavior, mood, and affect are within normal limits. 10:22 Abdomen/GI: Inspection: distension, that is mild, Bowel sounds: normal, Palpation: mild abdominal tenderness, in the right upper quadrant and right lower quadrant, Liver: no appreciated palpable abnormalities, Hernia: not appreciated, 10:22 Skin: Appearance: Color: pale, Vital Signs: 07:47 BP 143 / 83; Pulse 74; Resp 16; Temp 98.6(O); Pulse Ox 99% on R/A; iw 10:15 BP 160 / 62; Pulse 65; Resp 20; Pulse Ox 100% on R/A; db 10:45 BP 137 / 64; Pulse 67; Resp 18; Pulse Ox 99% on R/A; db 11:15 BP 139 / 67; Pulse 67; Resp 18; Pulse Ox 100% on R/A; db 12:32 BP 144 / 76; Pulse 70; Resp 18; Pulse Ox 100% ; db MDM: 07:25 Patient medically screened. ayala 10:28 Differential Diagnosis altered mental status, sepsis, flu. Differential diagnosis: ayala appendicitis, bowel obstruction, diverticulitis, gastritis, GI Bleed, Mesenteric ischemia or infarction, non-specific abd pain, pancreatitis, Peptic Ulcer Disease, Peritonitis, Prostatitis, Pyelonephritis, Ureterolithiasis, urinary tract infection. Data reviewed: vital signs, nurses notes, lab test result(s), EKG, radiologic studies, CT scan, plain films. Consideration of Admission/Observation Patient was admitted/placed on observation. Escalation of care including admission/observation considered. I considered the following discharge prescriptions or medication management in the emergency department Medications were administered in the Emergency Department. See MAR. Test considered but Not performed: Ultrasound no abd usg. Care significantly affected by the following chronic conditions: Hypertension, Obesity, Cancer, Chronic Kidney Disease. 05/12 07:52 Order name: Basic Metabolic Panel; Complete Time: 10:35 [facility] 05/12 07:52 Order name: CBC with Diff; Complete Time: 11:06 [facility] 05/12 07:52 Order name: LFT's; Complete Time: 10:35 [facility] 05/12 07:52 Order name: Magnesium; Complete Time: 10:35 [facility] 05/12 07:52 Order name: NT PRO-BNP; Complete Time: 10:35 [facility] 05/12 07:52 Order name: PT-INR; Complete Time: 10:07 05/12 07:52 Order name: Troponin HS; Complete Time: 10:35 [facility] 05/12 07:52 Order name: Blood Culture Adult (2) [facility] 05/12 07:52 Order name: Lactate w/ 2H reflex if indic.; Complete Time: 10:07 [facility] 05/12 07:53 Order name: Lipase; Complete Time: 10:35 [facility] 05/12 07:53 Order name: Urinalysis w/ reflexes; Complete Time: 11:06 [facility] 05/12 07:55 Order name: SARS RAPID; Complete Time: 10:07 05/12 10:17 Order name: Manual Differential; Complete Time: 11:06 [facility] 05/12 10:56 Order name: Ghost Lactate-NO COLLECT Timer; Complete Time: 11:06 [facility] 05/12 07:52 Order name: XRAY Chest (1 view); Complete Time: 10:07 [facility] 05/12 08:28 Order name: CT Chest Abdomen Pelvis W/O Contrast; Complete Time: 10:07 [facility] 05/12 07:52 Order name: EKG; Complete Time: 07:53 [facility] 05/12 07:52 Order name: Cardiac monitoring; Complete Time: 10:37 [facility] 05/12 07:52 Order name: EKG - Nurse/Tech; Complete Time: 10:37 [facility] 05/12 07:52 Order name: IV Saline Lock; Complete Time: 08:28 [facility] 05/12 07:52 Order name: Labs collected and sent; Complete Time: 09:55 [facility] 05/12 07:52 Order name: O2 Per Protocol; Complete Time: 10:37 [facility] 05/12 07:52 Order name: O2 Sat Monitoring; Complete Time: 10:37 [facility] 05/12 08:40 Order name: Labs - recollect needed: recollect all tubes; Complete Time: 10:36 bd Administered Medications: 07:58 CANCELLED (Duplicate Order): [id number] mg 150 ml IVPB once over 90 mins [facility] 08:58 Drug: NS 0.9% IV 1000 ml IV at 1 bolus Per protocol; 1000 mL bolus Route: IV; Rate: 1 db bolus; Site: right forearm; 12:35 Follow up: Response: No adverse reaction; IV Status: Completed infusion; IV Intake: 50mldb 08:58 Drug: Famotidine IVP 20 mg IVP once; dilute with 10 mL 0.9% NaCl; give over 2 minutes db Route: IVP; Site: right forearm; 10:38 Follow up: Response: No adverse reaction db 10:15 Drug: Rocephin IV 1 grams IV at per protocol once; Given slow IV push per pharmacy db instructions Route: IV; Rate: per protocol; Site: left forearm; 12:35 Follow up: Response: No adverse reaction; IV Status: Completed infusion; IV Intake: 50mldb 10:30 Drug: NS 0.9% IV 1000 ml IV at 125 ml/hr continuous Route: IV; Rate: 125 ml/hr; Site: right forearm; 12:35 Follow up: Response: No adverse reaction; IV Status: Infusion continued upon transfer db 10:36 Drug: levofloxacin IVPB 500 mg 100 ml IVPB once over 60 mins Volume: 100 ml; Route: db IVPB; Infused Over: 60 mins; Site: right forearm; 12:34 Follow up: Response: No adverse reaction; IV Status: Completed infusion; IV Intake: db 100ml 10:45 Drug: Magnesium Sulfate IVPB 1 grams IVPB once over 1 hrs Route: IVPB; Infused Over: 1 db hrs; Site: left forearm; 12:34 Follow up: Response: No adverse reaction; IV Status: Completed infusion; IV Intake: db 100ml Disposition Summary: 05/12/24 11:12 Transfer Ordered Notes: Transfer Location: Other Acute Care Facility ayala Reason: Higher level of care ayala Condition: Fair(05/12/24 11:12) ayala Problem: new(05/12/24 11:12) ayala Symptoms: have improved(05/12/24 11:12) ayala Accepting Physician: to geronimo(05/12/24 12:35) db Diagnosis - Hydronephrosis with renal and ureteral calculous obstruction - with double j ayala stent(05/12/24 11:12) - Neutropenia, unspecified ayala - Sepsis, unspecified organism ayala - Abdominal pain, unspecified - omental infarct, CBD CANCER, ON CHEMO, WITH ayala STENT(05/12/24 11:14) Forms: - Medication Reconciliation Form ayala - SBAR form ayala Critical care time excluding procedures: 10:28 Critical care time: Bedside Care: 25 minutes, Consultation: 10 minutes, Family ayala Intervention: 5 minutes. Total time: 40 minutes Signatures: Dispatcher [employer] Noreen Garcia Corey, MD MD cha Williams, Irene, RN RN iw Benton, Danielle, RN RN db Corrections: (The following items were deleted from the chart) 07:53 07:53 BASIC METABOLIC PANEL+C.LAB.BRZ ordered. EDMS EDMS 07:53 07:53 CBC+H.LAB.BRZ ordered. EDMS EDMS 07:53 07:53 HEPATIC FUNCTION+C.LAB.BRZ ordered. EDMS EDMS 07:53 07:53 MAGNESIUM+C.LAB.BRZ ordered. EDMS EDMS 07:53 07:53 PROBNP+C.LAB.BRZ ordered. EDMS EDMS 07:53 07:53 PROTIME (+INR)+COAG.LAB.BRZ ordered. EDMS EDMS 07:53 07:53 Troponin High Sensitivity+C.LAB.BRZ ordered. EDMS EDMS 07:53 07:53 BLOOD CULTURE*+BA.LAB.BRZ ordered. EDMS EDMS 07:53 07:53 LACTATE+C.LAB.BRZ ordered. EDMS EDMS 07:53 07:53 LIPASE+C.LAB.BRZ ordered. EDMS EDMS 07:53 07:53 Urinalysis+U.LAB.BRZ ordered. EDMS EDMS 07:58 07:52 levofloxacin IVPB 750 mg 150 ml IVPB once over 90 mins ordered. ayala ayala 08:28 08:28 Chest Abdomen Pelvis Wo Con+CT.RAD.BRZ ordered. EDMS EDMS 10:25 10:25 BB Add On+BB.LAB.BRZ ordered. EDMS EDMS 11:09 10:35 Inpatient Admission ayala ayala : 10:35 Tracy Trinh ayala ayala : 10:35 Telemetry/MedSurg (Inpatient) ayala ayala : 10:35 Fair ayala ayala : 10:35 new ayala ayala : 10:35 have improved ayala ayala : 10:35 Standard ayala ayala 11: 10:35 ayala ayala 11: 10:35 Abdominal pain, unspecified - CBD cancer ayala ayala : 10:35 Anemia in neoplastic disease ayala ayala : 10:35 Anemia in chronic kidney disease ayala ayala : 10:35 Severe sepsis without septic shock ayala ayala : 10:35 Hydronephrosis with renal and ureteral calculous obstruction - with double J ayala stent ayala 11: 10:36 Hypomagnesemia ayala ayala : 11:12 to mda ayala ayala : 11:12 Abdominal pain, unspecified - omental infarct, CBD CANCER, ON CHEMO ayala ayala 12:35 11:14 to [facility] ayala db
[2024-05-12 10:38] LABS: Band Neutrophils 3 % (0-1); Basophilic Stippling 1+; Blood Morphology Comment NOTED (NOT SEEN); Differential Total Cells Count 100; Lymphocytes 25 % (15-42); Monocytes 16 % (0-10); Platelet Estimate DECR; Poikilocytosis 2+; Segmented Neutrophils 55 % (40-80); Toxic Granulation 1+
[2024-05-12 10:45] LABS: Specific Gravity 1.013 (1.005-1.030); Sqamous Epithelial <5 /HPF (None Seen); Urine Bacteria None Seen /HPF (<20); Urine Bilirubin NEGATIVE (Negative); Urine Blood 2+ (Negative); Urine Clarity Clear (Clear); Urine Color Light-Yellow (Yellow); Urine Culture Reflex Order NOT NEEDED; Urine Glucose 1+ (Negative); Urine Ketones NEGATIVE (Negative); Urine Microscopic Reflex YN ORDER UMIC; Urine Nitrite NEGATIVE (Negative); Urine Protein 1+ (Negative); Urine RBC 21-50 /HPF (None Seen); Urine Urobilinogen Normal (Normal); Urine WBC <5 /HPF (<5)
[2024-05-12] MEDS ORDERED: MAGNESIUM SULFATE 1 gm IVPB 1 GM/100 ML BAG IV ONE (10:58)
[2024-05-12 12:42] VITALS: TEMP 98.6
[2024-05-12 13:00] VITALS: BP 144/76; O2SAT 100
--- NOTE | 2024-05-12 13:47 | EKG ---
Test Date: 2024-05-12 Test Time: 10:02:07 Customer Service Engineer: [place] MEASUREMENT RESULTS: Intervals: Rate: 68 [place]: 196 QRSD: 94 QT: 404 QTc: 429 [place]: P: 42 [place]: 196 QRS: -37 T: -88 INTERPRETIVE STATEMENTS: Normal sinus rhythm Left axis deviation Anteroseptal infarct, age undetermined Abnormal ECG Compared to ECG 05/04/2024 23:06:42 Sinus tachycardia no longer present Myocardial infarct finding still present Electronically Signed On 05-12-24 13:47:07 CDT by Nelson Orr
== END 2024-05-12 12:35 ==
LOC: ER 07:13
DX: N13.2 Hydronephrosis with renal and ureteral calculous obstruction (principal); A41.9 Sepsis, unspecified organism; D70.9 Neutropenia, unspecified; K55.069 Acute infarction of intestine, part and extent unspecified; C22.1 Intrahepatic bile duct carcinoma; Z96.0 Presence of urogenital implants; Z11.52 Encounter for screening for COVID-19; Z88.2 Allergy status to sulfonamides; Z88.5 Allergy status to narcotic agent
CPT/HCPCS: 93005; 87040 ×2; 85025; 81001; 80048; 36415; 83735; 85610; 80076; 83605 ×2; 84484; 83690; 83880; 71250; 74176; 71045; 87811; J3475; J7030; J0696; 99285

== ENCOUNTER 2024-07-04 06:57 | Emergency (ER) | payer OTHER ==
[2024-07-04] MEDS ORDERED: VANCOMYCIN 1 GM/VIAL ONE (07:52)
[2024-07-04] MEDS ORDERED: ACETAMINOPHEN 500 MG TAB ONE (07:52)
[2024-07-04] MEDS ORDERED: NA CHLORIDE 0.9% 3,000 ML ONE (07:53)
[2024-07-04] MEDS ORDERED: Meropenem 1000 MG/VIAL IV ONE (07:53)
[2024-07-04] MEDS ORDERED: FAMOTIDINE 20 MG/2 ML VIAL IV ONE (07:53)
[2024-07-04] MEDS ORDERED: NA CHLORIDE 0.9% 250 ML ONE (07:53)
[2024-07-04] MEDS ORDERED: NA CHLORIDE 0.9% 100 ML ONE ×2 (07:53→07:56)
[2024-07-04 07:56] LABS: Absolute Lymphocytes (CBC) 0.3 K/uL (0.7-4.9); Absolute Monocytes 0.1 K/uL (0.1-1.3); Absolute Neutrophil 2.7 K/uL (1.8-8.0); Basophils % 0.6 % (0-1.3); Eosinophils % 0.5 % (0-4.4); Hematocrit 24.7 % (39.6-49.0); Hemoglobin 8.4 g/dL (13.6-17.9); Lymphocytes % 8.5 % (15.3-44.8); MCH 31.1 pg (27.0-35.0); MCV 91.4 fL (80-100); MPV 7.1 fL (7.6-11.3); Monocytes % 2.1 % (3.3-12.3); Neutrophils % 88.3 % (41.7-73.7); Nucleated Red Blood Cells % 0.2 % (0-0); Platelets 218 thou/uL (152-406); Red Cell Distribution Width 21.1 % (12.1-15.2)
[2024-07-04 08:00] LABS: Specific Gravity 1.014 (1.005-1.030); Sqamous Epithelial <5 /HPF (None Seen); Urine Bacteria None Seen /HPF (<20); Urine Bilirubin NEGATIVE (Negative); Urine Blood Trace (Negative); Urine Clarity Clear (Clear); Urine Color Light-Yellow (Yellow); Urine Culture Reflex Order NOT NEEDED; Urine Glucose 1+ (Negative); Urine Ketones NEGATIVE (Negative); Urine Microscopic Reflex YN ORDER UMIC; Urine Nitrite NEGATIVE (Negative); Urine Protein 1+ (Negative); Urine RBC <5 /HPF (None Seen); Urine Urobilinogen Normal (Normal); Urine WBC <5 /HPF (<5); Urine pH 5.5 (5.0-7.0)
[2024-07-04 08:03] LABS: PT Prothrombin Time 12.5 SECONDS (9.4-12.5); Protime INR 1.12
[2024-07-04 08:12] LABS: SARS-CoV-2 Antigen CONTROL BLUE LINE VIS/BG OK; SARS-CoV-2 Antigen Rapid Res Negative (Negative)
[2024-07-04 08:16] LABS: Albumin 2.6 g/dL (3.4-5.0); Albumin/Globulin Ratio 0.5 (1.1-1.8); Anion Gap 11.5 mEq/L (5.0-15.0); Bilirubin Direct 0.2 mg/dL (0-0.2); Bilirubin Indirect, Calculated 0.2 mg/dL (0.2-0.8); Bilirubin Total 0.4 mg/dL (0.2-1.0); Globulin 5.3 g/dL (2.3-3.5); Magnesium 1.4 mg/dL (1.6-2.4); Potassium 4.5 mEq/L (3.5-5.1); Protein, Total 7.9 g/dL (6.4-8.2); Troponin High Sensitivity 39.4 pg/mL (<58.9)
--- NOTE | 2024-07-04 08:36 | RAD REPORT ---
EXAM DESCRIPTION: CTChest Abd Pelvis Wo Con - 07/04/2024 8:17 am CLINICAL HISTORY: Abdominal distention;Cough COMPARISON: Chest Abd Pelvis Wo Con dated 05/12/2024; Chest Abd Pelvis Wo Con dated 05/05/2024 TECHNIQUE: CT of the chest, abdomen, and pelvis was performed without contrast. All CT scans are performed using dose optimization technique as appropriate and may include automated exposure control or mA/KV adjustment according to patient size. FINDINGS: Thorax: Chest Wall: No abnormal mass right subclavian approach PICC with tip in the SVC. Lungs: Mild subpleural reticulation which is basilar predominant and consistent with a component of p ulmonary fibrosis. Emphysema also present. No acute process in the lungs. Pleura: No effusions or pneumothorax. [place]/Mediastinum: No lymphadenopathy. Aorta/Pulmonary Arteries: Unremarkable Heart: Normal size. Coronary calcifications. Abdomen/Pelvis: Liver: Pneumobilia. No focal mass. Biliary: Cholecystectomy. Metallic biliary stent. Stomach: No significant focal abnormality. Duodenum: No significant focal abnormality. Pancreas: No significant abnormality. Spleen: No significant abnormality. Adrenal: No suspicious lesions. Kidney/ureter: No hydronephrosis. Nonobstructive bilateral nephrolithiasis. Too small to characterize and/or benign appearing renal lesions are noted. Retroperitoneum: No retroperitoneal adenopathy. Vascular: No aneurysm. Atherosclerosis . Bowel: Apparent wall thickening at the hepatic flexure and proximal transverse colon is improved from 05/12/2024. This may have been secondary to resolved colitis or underdistention.. Normal appendix. Peritoneum: No ascites or free air. Bladder: Nonspecific circumferential bladder wall thickening. Reproductive: No masses . Bones: No acute fracture. Sternotomy. Other: n/a IMPRESSION: 1. No specific source of infection identified. Specifically, no evidence of pneumonia. 2. 4 mm nonobstructing stone at the left UPJ which is new from prior. 3. Similar pneumobilia with metallic biliary stent. 4. Circumferential wall thickening without inflammatory changes at the hepatic flexure has improved s bree 05/12/2024. This may have reflected sequela of prior colitis or underdistention.
[2024-07-04 08:39] LABS: Anisocytosis 1+; Blood Morphology Comment NOTED (NOT SEEN); Macrocytosis SLIGHT; Platelet Estimate ADEQ; Platelets Clumped FEW; White Blood Cell Scan OK (OK)
--- NOTE | 2024-07-04 08:40 | RAD REPORT ---
EXAM DESCRIPTION: RAD - Chest Single View - 07/04/2024 8:29 am CLINICAL HISTORY: COUGH COMPARISON: Chest Single View dated 05/12/2024; Chest Single View dated 03/09/2024; Chest Single View dated 01/23/2024; Chest Single View dated 06/09/2023 FINDINGS: Lines: Right subclavian approach PICC with tip overlying the SVC. Lungs: No evidence of edema or pneumonia. Pleural: No significant pleural effusions or pneumothorax. Cardiac: The heart size is within normal limits. Mediastinum: Within normal limits. Bones: No acute fractures. Sternotomy. Other: None IMPRESSION: No acute cardiopulmonary disease.
[2024-07-04] MEDS ORDERED: HYDROCORTISONE SUC 100 MG INJ ONE (08:53)
[2024-07-04] MEDS ORDERED: NA CHLORIDE 0.9% 1,000 ML ONE (08:53)
[2024-07-04] MEDS ORDERED: MAGNESIUM SULFATE 1 gm IVPB 1 GM/100 ML BAG IV ONE (08:53)
--- NOTE | 2024-07-04 09:10 | EDPHYS ---
Physician Documentation [facility] Name: Nnamdi Flores III Age: 78 yrs Sex: Male : 1945 Arrival Date: 07/04/2024 Time: 06:57 Bed 5 Private MD: ED Physician Andi Navarrete HPI: 07/04 07:16 This 78 yrs old Male presents to ER via EMS with complaints of fever ams, ayala bile ca. 07:16 fever ams. The patient presents with confusion, decreased mental status, decreased ayala responsiveness, trouble concentrating. Onset: The symptoms/episode began/occurred 1 day(s) ago. Possible causes: low blood sugar, seizure, sepsis. Associated signs and symptoms: Pertinent positives: confusion, dizziness, lightheadedness, nausea. Current symptoms: In the emergency department the patient's symptoms have improved, mildly. Patient's baseline: Neuro: alert and fully oriented. Severity of symptoms: At their worst the symptoms were moderate in the emergency department the symptoms are unchanged. The patient has experienced similar episodes in the past, several times. Historical: - Allergies: 07:06 Morphine; jh8 07:06 Sulfa (Sulfonamide Antibiotics); jh8 - Home Meds: 07:06 aspirin 81 mg Oral tablet daily [Active]; Glimepiride Oral [Active]; losartan oral jh8 [Active]; Metoprolol Tartrate Oral [Active]; Oxybutynin Chloride Oral daily [Active]; Plavix 75 mg Oral tablet daily [Active]; - PMHx: 07:06 BILE DUCT CANCER (Hypothyroidism); BPH; coronary atherosclerosis; Hypertensive jh8 disorder; Hypothyroidism; - Immunization history:: Adult Immunizations up to date. - Infectious Disease History:: Denies. - Social history:: Smoking status: Patient denies any tobacco usage or history of. - Family history:: not pertinent. ROS: 07:16 Eyes: Negative for injury, pain, redness, and discharge, ENT: Negative for injury, ayala pain, and discharge, Neck: Negative for injury, pain, and swelling, Respiratory: Negative for shortness of breath, cough, wheezing, and pleuritic chest pain, Abdomen/GI: Negative for abdominal pain, nausea, vomiting, diarrhea, and constipation, Back: Negative for injury and pain, : Negative for injury, bleeding, discharge, and swelling, MS/Extremity: Negative for injury and deformity, Skin: Negative for injury, rash, and discoloration, Psych: Negative for depression, anxiety, suicide ideation, homicidal ideation, and hallucinations, Allergy/Immunology: Negative for hives, rash, and allergies, Endocrine: Negative for neck swelling, polydipsia, polyuria, polyphagia, and marked weight changes, Hematologic/Lymphatic: Negative for swollen nodes, abnormal bleeding, and unusual bruising, 07:16 Cardiovascular: Positive for palpitations, 07:16 Respiratory: Positive for cough, with no reported sputum, 07:16 Neuro: Positive for altered mental status, weakness, Exam: 07:16 Head/Face: Normocephalic, atraumatic. Eyes: Pupils equal round and reactive to light, ayala extra-ocular motions intact. Lids and lashes normal. Conjunctiva and sclera are non-icteric and not injected. Cornea within normal limits. Periorbital areas with no swelling, redness, or edema. ENT: Nares patent. No nasal discharge, no septal abnormalities noted. Tympanic membranes are normal and external auditory canals are clear. Oropharynx with no redness, swelling, or masses, exudates, or evidence of obstruction, uvula midline. Mucous membranes moist. Neck: Trachea midline, no thyromegaly or masses palpated, and no cervical lymphadenopathy. Supple, full range of motion without nuchal rigidity, or vertebral point tenderness. No Meningismus. Chest/axilla: Normal chest wall appearance and motion. Nontender with no deformity. No lesions are appreciated. Cardiovascular: Regular rate and rhythm with a normal S1 and S2. No gallops, murmurs, or rubs. Normal PMI, no JVD. No pulse deficits. Respiratory: Lungs have equal breath sounds bilaterally, clear to auscultation and percussion. No rales, rhonchi or wheezes noted. No increased work of breathing, no retractions or nasal flaring. Abdomen/GI: Soft, non-tender, with normal bowel sounds. No distension or tympany. No guarding or rebound. No evidence of tenderness throughout. Back: No spinal tenderness. No costovertebral tenderness. Full range of motion. Male : Normal genitalia with no discharge or lesions. Skin: Warm, dry with normal turgor. Normal color with no rashes, no lesions, and no evidence of cellulitis. MS/ Extremity: Pulses equal, no cyanosis. Neurovascular intact. Full, normal range of motion. Neuro: Awake and alert, GCS 15, oriented to person, place, time, and situation. Cranial nerves II-XII grossly intact. Motor strength 5/5 in all extremities. Sensory grossly intact. Cerebellar exam normal. Normal gait. Psych: Awake, alert, with orientation to person, place and time. Behavior, mood, and affect are within normal limits. 07:16 ECG was reviewed by the Attending Physician. Vital Signs: 07:04 BP 114 / 58; Pulse 114; Resp 20; Temp 103; Pulse Ox 94% ; Pain 0/10; jh8 08:08 BP 88 / 51; Pulse 101; Resp 19; Temp 102(O); Pulse Ox 96% on R/A; Height 5 ft. 10 in. ; ld1 Pain 0/10; 08:20 BP 101 / 41; Pulse 92; Resp 20; Pulse Ox 96% on R/A; ld1 09:09 BP 106 / 49; Pulse 79; Resp 18; Pulse Ox 99% on R/A; ld1 09:40 BP 127 / 56; Pulse 81; Resp 18; Pulse Ox 95% on R/A; ld1 10:21 BP 115 / 59; Pulse 80; Resp 16; Pulse Ox 98% on R/A; mb9 07:04 Pain Scale: Adult jh8 08:08 Pain Scale: Adult ld1 MDM: 07:06 Patient medically screened. ayala 07:22 Differential Diagnosis altered mental status, sepsis, flu. Differential Diagnosis: CVA, ayala electrolyte abnormality, hypoglycemia, pneumonia, sepsis, UTI, volume depletion. Data reviewed: vital signs, nurses notes, EMS record, lab test result(s), EKG, radiologic studies, CT scan, plain films. Consideration of Admission/Observation Escalation of care including admission/observation considered. I considered the following discharge prescriptions or medication management in the emergency department Medications were administered in the Emergency Department. See MAR. Independent interpretation of the following test(s) in the Emergency Department EKG: See my EKG interpretation above. Test considered but Not performed: MRI: no mri brain. Care significantly affected by the following chronic conditions: Hypertension, Obesity, Cancer, bph, cad, hypothyroid. Counseling: I had a detailed discussion with the patient and/or guardian regarding the historical points, exam findings, and any diagnostic results supporting the discharge/admit diagnosis, lab results, radiology results, the need for further work-up and treatment in the hospital. 07/04 07:14 Order name: Strep [facility] 07/04 07:13 Order name: Basic Metabolic Panel; Complete Time: 08:41 [facility] 07/04 07:13 Order name: CBC with Diff; Complete Time: 08:41 [facility] 07/04 07:13 Order name: LFT's; Complete Time: 08:41 [facility] 07/04 07:13 Order name: Magnesium; Complete Time: 08:41 [facility] 07/04 07:13 Order name: NT PRO-BNP; Complete Time: 08:41 [facility] 07/04 07:13 Order name: PT-INR; Complete Time: 08:11 [facility] 07/04 07:13 Order name: Troponin HS; Complete Time: 08:41 [facility] 07/04 07:13 Order name: Lactate w/ 2H reflex if indic.; Complete Time: 08:41 [facility] 07/04 07:13 Order name: Blood Culture Adult (2) [facility] 07/04 07:13 Order name: Urinalysis w/ reflexes; Complete Time: 08:11 [facility] 07/04 07:18 Order name: SARS RAPID; Complete Time: 08:17 ld1 07/04 07:18 Order name: Flu; Complete Time: 08:17 ld1 07/04 08:12 Order name: Throat Culture [facility] 07/04 08:39 Order name: CBC Smear Scan; Complete Time: 08:41 [facility] 07/04 10:17 Order name: Ghost Lactate-NO COLLECT Timer [facility] 07/04 07:13 Order name: XRAY Chest (1 view); Complete Time: 08:55 [facility] 07/04 07:14 Order name: CT Chest Abdomen Pelvis W/O Contrast; Complete Time: 08:41 [facility] 07/04 07:13 Order name: EKG; Complete Time: 07:14 [facility] 07/04 07:13 Order name: Cardiac monitoring; Complete Time: 07:15 [facility] 07/04 07:13 Order name: EKG - Nurse/Tech; Complete Time: 07:15 [facility] 07/04 07:13 Order name: IV Saline Lock; Complete Time: 07:15 [facility] 07/04 07:13 Order name: Labs collected and sent; Complete Time: 07:50 [facility] 07/04 07:13 Order name: O2 Per Protocol; Complete Time: 07:15 [facility] 07/04 07:13 Order name: O2 Sat Monitoring; Complete Time: : [facility] 07/04 07:14 Order name: IV Saline Lock - Large Bore; Complete Time: 07:50 [facility] EC:16 Rate is 110 beats/min. Rhythm is regular. QRS Matthews is Normal. ND interval is normal. ayala QRS interval is normal. QT interval is normal. No Q waves. T waves are Normal. No ST changes noted. Clinical impression: Sinus tachycardia and No evidence of ischemia. Interpreted by me. Reviewed by me. Administered Medications: 08: Drug: NS 0.9% IV 1000 ml IV at 1 bolus Per protocol; 1000 mL bolus Route: IV; Rate: 1 ld1 bolus; Site: left antecubital; :59 Follow up: Response: No adverse reaction; IV Status: Completed infusion; IV Intake: ld1 1000ml 08:07 Drug: Acetaminophen PO 1000 mg PO once Route: PO; ld1 08:59 Follow up: Response: No adverse reaction ld1 08:07 Drug: Meropenem IV 1 grams IV at per protocol once; (mix in NS 100 mL) Route: IV; Rate: ld1 per protocol; Site: right antecubital; :59 Follow up: Response: No adverse reaction; IV Intake: 250ml ld1 08:07 Drug: vancoMYCIN IVPB 1 grams IVPB once over 2 hrs Route: IVPB; Infused Over: 2 hrs; ld1 Site: left antecubital; 08:58 Follow up: Response: No adverse reaction ld1 08:07 Drug: Famotidine IVP 20 mg IVP once; dilute with 10 mL 0.9% NaCl; give over 2 minutes ld1 Route: IVP; Site: left antecubital; 08:58 Follow up: Response: No adverse reaction ld1 08:07 Drug: NS 0.9% IV 1000 ml IV at 125 ml/hr continuous Route: IV; Rate: 125 ml/hr; Site: ld1 left antecubital; 08:58 Follow up: Response: No adverse reaction; IV Status: Infusion continued; IV Intake: ld1 1000ml 08:08 Drug: NS 0.9% IV 1000 ml IV at 1 bolus Per protocol; 1000 mL bolus Route: IV; Rate: 1 ld1 bolus; Site: right antecubital; :59 Follow up: Response: No adverse reaction; IV Status: Completed infusion; IV Intake: ld1 1000ml 09:09 Drug: NS 0.9% IV 500 ml IV at bolus once Route: IV; Rate: bolus; Site: right ld1 antecubital; 12:09 Follow up: Response: No adverse reaction; IV Status: Completed infusion; IV Intake: ld1 500ml 09:10 Drug: Solu-CORTEF IVP 100 mg IVP once Route: IVP; Site: right antecubital; ld1 12:10 Follow up: Response: No adverse reaction ld1 09:10 Drug: Magnesium Sulfate IVPB 1 grams IVPB once over 1 hrs Route: IVPB; Infused Over: 1 ld1 hrs; Site: right antecubital; 12:10 Follow up: Response: No adverse reaction; IV Status: Completed infusion ld1 Disposition Summary: 07/04/24 09:10 Transfer Ordered Notes: Transfer Location: Other Acute Care Facility ayala Reason: Higher level of care ayala Condition: Fair ayala Problem: new ayala Symptoms: have improved ayala Accepting Physician: to geronimo(07/04/24 10:32) ld1 Diagnosis - Severe sepsis with septic shock ayala - Hydronephrosis with renal and ureteral calculous obstruction ayala - Anemia, unspecified ayala - Vomiting ayala Forms: - Medication Reconciliation Form ayala - SBAR form ayala Signatures: Dispatcher [employer] EDMS Andi Navarrete MD MD cha Attema, Lee, [employer]PER-C [employer]ENC[employer]IPPER-Cla1 Sue Mesa RN RN ld1 Derik Jordan RN RN jh8 Corrections: (The following items were deleted from the chart) 07:15 07:15 Group A Streptococcus Rapid [id number] ordered. EDMA EDMS 10:32 09:10 to [facility] ayala ld1
--- NOTE | 2024-07-04 09:10 | ER ---
Nurse's Notes [facility] Name: Nnamdi Flores III Age: 78 yrs Sex: Male : 1945 Arrival Date: 07/04/2024 Time: 06:57 Bed 5 Private MD: Diagnosis: Severe sepsis with septic shock;Hydronephrosis with renal and ureteral calculous obstruction;Anemia, unspecified;Vomiting Presentation: 07/04 07:04 Chief complaint: EMS states: fever tmax 104.1 with n/v, hx of colon ca, last chemo on friday, picc to [facility], offirmev 1gm iv and zofran 4mg iv given by ems. Coronavirus screen: Vaccine status: Client denies travel out of the [place] in the last 14 days. Client presents with at least one sign or symptom that may indicate coronavirus-19. Standard/surgical mask placed on the client. Ebola Screen: Patient negative for fever greater than or equal to 101.5 degrees Fahrenheit, and additional compatible Ebola Virus Disease symptoms Patient denies exposure to infectious person. Patient denies travel to an Ebola-affected area in the 21 days before illness onset. No symptoms or risks identified at this time. Initial Sepsis Screen: Does the patient meet any 2 criteria? RR > 20 per min. Temp <36.0*C (96.8*F)) or > 38.3*C (100.9*F). HR > 90 bpm. Yes Does the patient have a suspected source of infection? No. Patient's initial sepsis screen is negative. If YES to both, name of provider notified: Kenneth Benitez MD. Risk Assessment: Do you want to hurt yourself or someone else? Patient reports no desire to harm self or others. Onset of symptoms was July 04, 2024. 07:04 Method Of Arrival: EMS: [facility] 07:04 Acuity: DAMION 3 8 Triage Assessment: 07:07 General: Appears uncomfortable, obese. Pain: Denies pain. Neuro: Level of Consciousness [facility] is awake, alert, obeys commands, Oriented to person, place, time, situation, Appropriate for age. Cardiovascular: Patient's skin is warm and dry. Respiratory: Airway is patent Trachea midline Respiratory effort is even, unlabored, Respiratory pattern is regular, symmetrical. GI: Abdomen is round non-distended, obese. : No deficits noted. Derm: No deficits noted. Musculoskeletal: No deficits noted. Historical: - Allergies: 07:06 Morphine; jh8 07:06 Sulfa (Sulfonamide Antibiotics); jh8 - Home Meds: 07:06 aspirin 81 mg Oral tablet daily [Active]; Glimepiride Oral [Active]; losartan oral jh8 [Active]; Metoprolol Tartrate Oral [Active]; Oxybutynin Chloride Oral daily [Active]; Plavix 75 mg Oral tablet daily [Active]; - PMHx: 07:06 BILE DUCT CANCER (Hypothyroidism); BPH; coronary atherosclerosis; Hypertensive jh8 disorder; Hypothyroidism; - Immunization history:: Adult Immunizations up to date. - Infectious Disease History:: Denies. - Social history:: Smoking status: Patient denies any tobacco usage or history of. - Family history:: not pertinent. Screenin:08 [facility] ED Fall Risk Assessment (Adult) History of falling in the last 3 months, ld1 including since admission No falls in past 3 months (0 pts) Confusion or Disorientation No (0 pts) Intoxicated or Sedated No (0 pts) Impaired Gait No (0 pts) Mobility Assist Device Used No (0 pt) Altered Elimination No (0 pt) Score/Fall Risk Level 0 - 2 = Low Risk Oriented to surroundings, Maintained a safe environment, Educated pt \T\ family on fall prevention, incl call for assistance when getting out of bed, Assessed \T\ reinforced patient's understanding of fall precautions, Provided non-skid footwear, Hourly rounding (assess needs \T\ fall precautionary measures) done, Used ambulatory aids as needed (educated on \T\ assisted with), Used gait belt as appropriate. Abuse screen: Denies threats or abuse. Denies injuries from another. Nutritional screening: No deficits noted. Tuberculosis screening: No symptoms or risk factors identified. Assessment: 08:08 General: Appears in no apparent distress. comfortable, Behavior is calm, cooperative, ld1 appropriate for age. Pain: Denies pain. Neuro: Level of Consciousness is awake, confused, Oriented to person, place, time. Neuro: Level of Consciousness is lethargic, Oriented to. Cardiovascular: Capillary refill < 3 seconds Patient's skin is warm and dry. Rhythm is sinus rhythm. Respiratory: Airway is patent Respiratory effort is even, unlabored. GI: Abdomen is round non-distended, Reports nausea, vomiting. : No signs and/or symptoms were reported regarding the genitourinary system. EENT: No signs and/or symptoms were reported regarding the EENT system. Derm: Skin temperature is hot. Musculoskeletal: No signs and/or symptoms reported regarding the musculoskeletal system. 09:00 Reassessment: Patient appears in no apparent distress at this time. No changes from ld1 previously documented assessment. 10:15 Reassessment: Patient appears in no apparent distress at this time. No changes from ld1 previously documented assessment. Patient and/or family updated on plan of care and expected duration. Pain level reassessed. Patient states symptoms have improved. Vital Signs: 07:04 BP 114 / 58; Pulse 114; Resp 20; Temp 103; Pulse Ox 94% ; Pain 0/10; jh8 08:08 BP 88 / 51; Pulse 101; Resp 19; Temp 102(O); Pulse Ox 96% on R/A; Height 5 ft. 10 in. ; ld1 Pain 0/10; 08:20 BP 101 / 41; Pulse 92; Resp 20; Pulse Ox 96% on R/A; ld1 09:09 BP 106 / 49; Pulse 79; Resp 18; Pulse Ox 99% on R/A; ld1 09:40 BP 127 / 56; Pulse 81; Resp 18; Pulse Ox 95% on R/A; ld1 10:21 BP 115 / 59; Pulse 80; Resp 16; Pulse Ox 98% on R/A; mb9 07:04 Pain Scale: Adult 8 08:08 Pain Scale: Adult ld1 ED Course: 07:03 Patient arrived in ED. mb9 07:06 Andi Navarrete MD is Attending Physician. [facility] 07:06 Triage completed. jh8 07:15 Sue Mesa, TORREY is Primary Nurse. ld1 07:50 Flu Sent. ld1 07:50 SARS RAPID Sent. ld1 07:50 Strep Sent. ld1 07:50 Inserted saline lock: 22 gauge in left antecubital area, using aseptic technique. Blood ld1 collected. Flushed with 10 mL NS. 08:08 Strep Sent. ld1 08:08 SARS RAPID Sent. ld1 08:08 Flu Sent. ld1 08:08 No provider procedures requiring assistance completed. ld1 08:08 Patient has correct armband on for positive identification. Placed in gown. Bed in low ld1 position. Call light in reach. Side rails up X2. farmer vegetable on. Pulse ox on. NIBP on. Door closed. Noise minimized. Warm blanket given. 08:19 CT Chest Abdomen Pelvis W/O Contrast In Process Unspecified. EDMS 08:31 XRAY Chest (1 view) In Process Unspecified. EDMS 09:37 \T\[address] Navarrete with Dirk Trammell from the [facility] eb transfer center/ \T\0911 Dr. Navarrete connected with the ED doc on for patient transfer consultation/ Administrative approval given by Dr. Tip Mulligan , patient has been accepted to [facility] ED, report to be called to [phone]. 10:21 Repositioned patient. Cleaned of incontinence. mb9 10:29 Patient transferred, IV remains in place. ld1 10:29 Arm band placed on right wrist. ld1 Administered Medications: 08:07 Drug: NS 0.9% IV 1000 ml IV at 1 bolus Per protocol; 1000 mL bolus Route: IV; Rate: 1 ld1 bolus; Site: left antecubital; 08:59 Follow up: Response: No adverse reaction; IV Status: Completed infusion; IV Intake: ld1 1000ml 08:07 Drug: Acetaminophen PO 1000 mg PO once Route: PO; ld1 08:59 Follow up: Response: No adverse reaction ld1 08:07 Drug: Meropenem IV 1 grams IV at per protocol once; (mix in NS 100 mL) Route: IV; Rate: ld1 per protocol; Site: right antecubital; 08:59 Follow up: Response: No adverse reaction; IV Intake: 250ml ld1 08:07 Drug: vancoMYCIN IVPB 1 grams IVPB once over 2 hrs Route: IVPB; Infused Over: 2 hrs; ld1 Site: left antecubital; 08:58 Follow up: Response: No adverse reaction ld1 08:07 Drug: Famotidine IVP 20 mg IVP once; dilute with 10 mL 0.9% NaCl; give over 2 minutes ld1 Route: IVP; Site: left antecubital; 08:58 Follow up: Response: No adverse reaction ld1 08:07 Drug: NS 0.9% IV 1000 ml IV at 125 ml/hr continuous Route: IV; Rate: 125 ml/hr; Site: ld1 left antecubital; 08:58 Follow up: Response: No adverse reaction; IV Status: Infusion continued; IV Intake: ld1 1000ml 08:08 Drug: NS 0.9% IV 1000 ml IV at 1 bolus Per protocol; 1000 mL bolus Route: IV; Rate: 1 ld1 bolus; Site: right antecubital; 08:59 Follow up: Response: No adverse reaction; IV Status: Completed infusion; IV Intake: ld1 1000ml 09:09 Drug: NS 0.9% IV 500 ml IV at bolus once Route: IV; Rate: bolus; Site: right ld1 antecubital; 12:09 Follow up: Response: No adverse reaction; IV Status: Completed infusion; IV Intake: ld1 500ml 09:10 Drug: Solu-CORTEF IVP 100 mg IVP once Route: IVP; Site: right antecubital; ld1 12:10 Follow up: Response: No adverse reaction ld1 09:10 Drug: Magnesium Sulfate IVPB 1 grams IVPB once over 1 hrs Route: IVPB; Infused Over: 1 ld1 hrs; Site: right antecubital; 12:10 Follow up: Response: No adverse reaction; IV Status: Completed infusion ld1 Medication: 10:29 VIS not applicable for this client. ld1 Intake: 08:58 IV: 1000ml; Total: 1000ml. ld1 08:59 IV: 250ml; Total: 1250ml. ld1 08:59 IV: 1000ml; Total: 2250ml. ld1 08:59 IV: 1000ml; Total: 3250ml. ld1 12:09 IV: 500ml; Total: 3750ml. ld1 Outcome: 09:10 ER care complete, transfer ordered by MD. cai 10:28 Transferred by ground EMS to [facility], ld1 10:28 Condition: stable 10:28 Instructed on the need for transfer, 10:32 Patient left the ED. ld1 Signatures: Dispatcher [employer] Andi Amaya MD MD cha Botello, Elizabeth eb Sims, Lauren RN RN ld1 Karen Hunter RN RN mb9 Derik Jordan RN RN jh8
[2024-07-04 10:52] VITALS: TEMP 102
[2024-07-04 10:57] VITALS: BP 115/59; O2SAT 98
--- OUTSIDE RECORDS SUMMARY | 2024-07-06 12:09 | XMS REPORT | Clinical Summary ---
Author Name Unknown Organization [facility] Address [address] [place] [address] Care Team Providers Care Skid Man Name Role Phone Al Carrasco MD Unavailable [phone] Dashawn Sutherland MD Primary Care Provider [phone] Ynes RUBI MD, Al Hay Unavailable [phone] Allergies Active Allergy Reactions Criticality Noted Date Comments Morphine Anaphylaxis,Other (S ee Comments),Shortness Of Breath High 11/21/2015 Hypotention Sulfur Nausea And Vomiting High 12/08/2023 Medications Medication Sig Dispensed Refills Start Date End Date Status levothyroxine (SYNTHROID, LEVOTHROID) 75 mcg tablet Take 1 tablet (75 mcg) by mouth daily. 11/20/19 24 024 Discontinued(St op Taking at Discharge) metoprolol tartrate (LOPRESSOR) 50 mg tablet Take 1 tablet (50 mg) by mouth daily. 06/09/20 Suspended losartan (COZAAR) 100 mg tablet Take 1 tablet (100 mg) by mouth daily. Taking 50mg am/ and 50mg at night 06/09/20 Suspended OMEGA-3 FATTY ACIDS-VITAMIN E ORAL Take 1 g by mouth. 024 Discontinued glimepiride (AMARYL) 2 mg tablet Take 2 tablets (4 mg) by mouth twice daily. 11/20/19 24 Suspended ursodiol (ACTIGALL) 500 mg tablet Take 1 tablet (500 mg) by mouth 3 (three) times a day. 12/10/19 24 024 Discontinued carvedilol (COREG) 12.5 mg tablet Take 1 tablet (12.5 mg) by mouth daily. 12/10/19 24 Discontinued pantoprazole (PROTONIX) 40 mg EC tablet Take 1 tablet (40 mg) by mouth every morning before breakfast. 12/25/19 24 docusate sodium (COLACE) 100 mg capsule Take 1 capsule (100 mg) by mouth twice daily. 12/24/19 24 Discontinued latanoprost (XALATAN) 0.005% ophthalmic solution Administer 1 drop to both eyes daily. 10/16/20 Suspended tamsulosin (FLOMAX) 0.4 mg 24 hr capsule Take 1 capsule (0.4 mg) by mouth daily. 06/10/20 Suspended simvastatin (ZOCOR) 20 mg tablet Take 2 tablets (40 mg) by mouth at bedtime. 11/20/19 Suspended ondansetron (Zofran) 8 mg tabletIndications:Ch olangiocarcinoma of biliary tract, NOS Take 1 tablet (8 mg) by mouth every 8 (eight) hours as needed for nausea or vomiting (First choice). 30 tablet 5 01/25/20 24 Discontinued(Ot her/Not Applicable) prochlorperazine (COMPAZINE) 10 mg tabletIndications:Ch olangiocarcinoma of biliary tract, NOS Take 1 tablet (10 mg) by mouth every 6 (six) hours as needed for nausea or vomiting (Second choice). 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 30 capsule 03/01/20 24 Discontinued(Re order) clopidogrel (PLAVIX) 75 mg tablet Take 1 tablet (75 mg) by mouth daily. Discontinued(St op Taking at Discharge) cephalexin (KEFLEX) 500 mg capsule Take 1 capsule (500 mg) by mouth twice daily. 05/05/20 24 024 Discontinued(St op Taking at Discharge) ezetimibe (ZETIA) 10 mg tablet Take 1 tablet (10 mg) by mouth at bedtime. 12/10/19 Suspended Iron 100 Plus [phone] bk-mh-zmx-mg tab Take 1 tablet by mouth daily. 04/14/20 24 024 Discontinued(St op Taking at Discharge) aspirin 81 mg chewable tabletIndications:Co ronary artery disease due to calcified coronary lesion Chew 1 tablet (81 mg) daily. 05/28/20 Suspended Additional Information pantoprazole (Protonix) 40 mg EC tabletIndications:Up per gastrointestinal bleeding,Melena Take 1 tablet (40 mg) by mouth 2 (two) times a day before meals. 180 tablet 05/28/20 Suspended Additional Information levothyroxine (SYNTHROID, LEVOTHROID) 100 mcg tabletIndications:Hy pothyroidism, not otherwise specified Take 1 tablet (100 mcg) by mouth daily. 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 30 capsule 06/03/20 Suspended Additional Information sodium chloride (NS) 0.9% flush syringe 10 mLIndications:Cholan giocarcinoma of biliary tract, NOS Inject 10 mL (1 syringe) into each lumen of central venous catheter daily as directed. 30 each 6 06/03/20 24 Suspended Additional Information cephalexin (KEFLEX) 500 mg capsuleIndications:C alculus of kidney and ureter Take 1 capsule (500 mg) by mouth twice daily. 14 capsule 06/19/20 Suspended Additional Information Active Problems Patient Care Coordination No te Formatting of this note migh t be different from the original. Patient tested positive for COVID on 05/05/24. R/S'd chemo to 05/19/2024 Problem Noted Date Diagnosed Date Liver enzymes level above reference range 2023 Sepsis 07/04/2024 Fever 07/04/2024 Calculus of kidney and ureter 05/28/2024 Malnutrition of moderate degree 05/27/2024 Dieulafoy lesion of duodenum 05/26/2024 Upper gastrointestinal bleeding 05/25/2024 Anemia 05/19/2024 Acute posthemorrhagic anemia 05/16/2024 Bacteremia caused by Gram-negative bacteria 04/18 Hematuria 05/13/2024 Nephrolithiasis 05/13/2024 History of insertion of stent into ureter 2023 COVID-19 05/13/2024 Pancytopenia 05/13/2024 Coronary artery disease due to calcified coronar y lesion 05/13/2024 Hypertension 05/13/2024 Hyperlipidemia 05/13/2024 Type 2 diabetes mellitus 05/13/2024 Chronic kidney disease 05/13/2024 Obstructive sleep apnea syndrome 05/13/2024 Melena 05/13/2024 Calculus of ureter 04/09/2024 Cholangiocarcinoma 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 Cancer Staging:Clinical:Stage IIIB(cT4, cN0, cM0) - Unsigned Encounters Date Type Department Care Team Description 07/05/2024 8:00 PM CDT Ancillary Procedure [facility] [address] [place] [address] Nery Rasheed MD Arrived 07/04/2024 8:00 PM CDT Ancillary Procedure [facility] [address] [place] [address] Nery Rasheed MD Arrived 07/04/2024 11:21 AM CDT - Present Hospital Encounter MAIN [id number] [address] [place] [address] Nery Rasheed MD Musaelyan, Arine, MD Etchegaray-La ngly, Mikel, MD Sepsis (Primary Dx); Fever; Cholangiocarcinoma 07/04/2024 Travel 07/03/2024 [facility] [address] [place] [address] Main Bldg, 7th [place] [address] Marbella Pereira PA Cholangiocarcinoma of biliary tract, NOS; 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 06/29/2024 10:15 AM CDT Infusion MD [facility] [place] [facility] [address] [place] [address] 4th [place] [address] Marbella Pereira PA Pierce, Alyssa O RN Cholangiocarcinoma (Primary Dx); Cholangiocarcinoma of biliary tract, NOS 06/29/2024 Orders Only G[facility] [address] [place] [address], 7th [place] [address] Marbella Pereira PA 06/29/2024 Travel 06/28/2024 Case Management Case Management [address] [place] [address] Lo Jarvis, TORREY 06/23/2024 11:59 PM CDT Anesthesia Event Perioperative Evaluation [facility] Management Center [address] [place] [address], 6th [place] [address] Fátima Alves, RN 06/23/2024 Orders Only [facility] [address] [place] [address], 7th Floor Elevator [place] [id number] Al Quick IV, MD 06/23/2024 Orders Only [facility] [address] [place] [address], [address] [place] [address] [place] [address] Marbella Pereira PA Cholangiocarcinoma (Primary Dx) 06/23/2024 Telephone [facility] [address] [place] [address], 8th [place] [address] Lili Boss APRN 06/22/2024 Case Management Case Management [address] [place] [address] Jade Ku, RN 06/22/2024 Prep for Surgery [facility] [address] [place] [address], 8th [place] [address] Lili Boss, ANNAMARIA Cholangiocarcinoma (Primary Dx); Pre-surgery evaluation 06/21/2024 3:00 PM CDT Telemedicine MD [facility] [place] - Medical Oncology [address] [place] [address] Dashawn Sutherland MD Cholangiocarcinoma of biliary tract, NOS 06/21/2024 Orders Only [facility] [address] [place] [address], 7th [place] [address] Dashawn Sutherland MD 06/21/2024 Orders Only [facility] On[facility] [address] [place] [address] Marbella Pereira PA Cholangiocarcinoma (Primary Dx) 06/21/2024 Orders Only [facility] [address] [place] [address] Marbella Pereira PA Cholangiocarcinoma (Primary Dx) 06/20/2024 Orders Only [facility] [address] [place] [address], [facility] [place] [address] Al Quick IV, MD Calculus of kidney and ureter (Primary Dx) 06/19/2024 8:00 AM CDT - 06/19/2024 10:35 AM CDT Surgery MAIN OR [address] [place] [address] Al Quick IV, MD CYSTOURETHROSCOPY WITH URETEROROSCOPY &/OR PYELOSCOPY, W/ REMOVAL/MANIPULATION OF CALCULUS 06/19/2024 7:56 AM CDT Anesthesia Event MAIN OR [address] [place] [address] Donnell Griffin MD Staes, Robert A II, [facility] 06/19/2024 5:55 AM CDT - 06/19/2024 1:34 PM CDT Hospital Encounter MAIN OR [address] [place] [address] Al Quick IV, MD Calculus of kidney and ureter Discharge Disposition: Home 06/19/2024 Orders Only [facility] [address] [place] [address], 7th [place] [address] Al Quick IV, MD Calculus of kidney and ureter (Primary Dx) 06/19/2024 Travel 06/18/2024 8:00 AM CDT POEM Appointments [facility] [address] [place] [address], 6th [place] [address] Dashawn Sutherland MD 06/18/2024 Case Management Case Management [address] [place] [address] Jade Ku, RN 06/17/2024 11:59 PM CDT Anesthesia Event [facility] [address] [place] [address], [facility] [place] [address] Fátima Alves RN 06/15/2024 8:00 AM CDT Infusion [facility] - Infusion [address] [place] [address] Marbella Pereira PA Sullivan, Paula F, RN Cholangiocarcinoma (Primary Dx) 06/15/2024 Orders Only Gastrointestinal Center [address] [place] [address], 7th [place] [address] Marbella Pereira PA Cholangiocarcinoma of biliary tract, NOS (Primary Dx) 06/15/2024 Travel 06/14/[address] [address] Kianna Vieyra, TORREY 06/14/[address] [address] Magnolia Spencer MA 06/11/2024 4:00 PM CDT Clinical Support [facility] - Infusion [address] [place] [address] Marbella Pereira PA Cholangiocarcinoma of biliary tract, NOS 06/11/2024 Travel 06/10/2024 Nurse Triage MEGHAN ROMERO PHYSICIAN [address] [place] [address] Sujatha James, TORREY 06/08/2024 Orders Only [facility] - Medical Oncology [address] [place] [address] Marbella Pereira PA Cholangiocarcinoma of biliary tract, NOS (Primary Dx) 06/07/2024 11:21 AM CDT - 06/07/2024 11:59 PM CDT Hospital Encounter Vascular Access and Procedures Center [facility] Main dg, 8th [place] [address] Dashawn Sutherland MD Kim, Diana J demand generator manager Disposition: Home 06/07/2024 8:36 AM CDT - 06/07/2024 11:20 AM CDT Hospital Encounter [facility] Procedures [facility] [address] [place] [address] Main dg, 8th [place] [address] Marbella Pereira PA Naig, Adam R. Jr., RN Elvia Blount MA Eads, Kathie Dang APRN,AGACNP Cholangiocarcinoma of biliary tract, NOS Discharge Disposition: Home 06/07/2024 8:34 AM CDT - 06/07/2024 8:35 AM CDT Hospital Encounter Diagnostic Imaging [facility] [address] [place] [address], 3rd [place] [address] Encounter for adjustment and management of vascular access device Discharge Disposition: Home 06/07/2024 6:54 AM CDT - 06/07/2024 8:33 AM CDT Hospital Encounter [facility] [address] [place] [address], 8th [place] [address] Marbella Pereira PA Mangulabnan, Joseph B, RN Encounter for adjustment and management of vascular access device (Primary Dx); Cholangiocarcinoma of biliary tract, NOS Discharge Disposition: Home 06/07/2024 6:15 AM CDT - 06/07/2024 6:53 AM CDT Hospital Encounter Diagnostic Laboratory Center [address] [place] [address], [place] [address] Marbella Pereira PA Encounter for adjustment and management of vascular access device Discharge Disposition: Home 06/07/2024 Education [facility] [address] [place] [address] Main dg, 8th [place] [address] Brody Palumbo RN 06/07/2024 Travel 06/04/2024 9:40 AM CDT - 06/04/2024 11:59 PM CDT Hospital Encounter [facility] [address] [place] [address], 8th [place] [address] Dashawn Sutherland MD Discharge Disposition: Home 06/04/2024 Nurse Only [facility] [address] [place] [address], 8th [place] [address] Jacey Hui, RN Encounter for adjustment and management of vascular access device (Primary Dx) 06/03/2024 Orders Only [facility] [address] [place] [address], 7th [place] [address] Marbella Pereira PA Cholangiocarcinoma of biliary tract, NOS (Primary Dx) 06/03/2024 Orders Only [facility] [address] [place] [address], 7th [place] [address] Marbella Pereira PA Cholangiocarcinoma of biliary tract, NOS; 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 06/02/2024 9:30 AM CDT Infusion MD [facility] [place] [facility] [address] [place] [address] Marbella Pereira PA Monroe, Celine M, RN Cholangiocarcinoma (Primary Dx) 06/02/2024 Telephone [facility] - Integrative Medicine [address] [facility] [place], [place] [address] [place] [address] Karen Helton RN 06/02/2024 Orders Only Gastrointestinal Center [address] [place] [address], 7th [place] [address] Covert, FAHEEM Trujillo 06/02/2024 Orders Only MD [facility] - Medical Oncology [address] [place] [address] aMrbella Pereira PA 06/01/2024 Orders Only [facility] [address] [place] [address] Graeme Suarez MD 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) 05/31/2024 10:00 AM CDT Follow-Up MD [facility] [place] [facility] [address] [place] [address] Dashawn Sutherland MD Cholangiocarcinoma of biliary tract, NOS 05/31/2024 Telephone [facility] [address] [place] [address] Cece Gaytan RN Discharge Call 05/31/2024 Travel 05/28/2024 Orders Only [facility] Cancer Center [address] [facility], 7th [place] [address] Al Quick IV, MD Calculus of kidney and ureter (Primary Dx) 05/27/2024 9:29 AM CDT Anesthesia Event Endoscopy Center [address] [place] [address] Main [facility], 5th Floor Elevator [place] [phone] Parris Moya MD Koo, Linda, CRNA 05/27/2024 7:45 AM CDT - 05/27/2024 8:35 AM CDT Surgery [facility]oscopy [facility] [address] [place] [address] Main [facility], 5th [place] [address] Alan Griffith MD DIAGNOSTIC UPPER GASTROINTESTINAL ENDOSCOPY 05/26/2024 Prep for Surgery [facility] - Gastroenterology, Hepatology & Nutrition [address] [place] [address], 7th [place] [address] Anna Braun PA Melena (Primary Dx); Anemia, not otherwise specified; Dieulafoy lesion of duodenum 05/25/2024 Travel 05/21/2024 2:07 PM CDT Anesthesia Event Endoscopy Center [address] [place] [address] Main [facility], 5th [place] [address] Estrellita Gillespie MD Silva, Jason M, ALGEBRA TEACHER 05/21/2024 1:00 PM CDT - 05/21/2024 2:00 PM CDT Surgery [facility] [address] [place] [address] Main [facility], 5th Floor [place], [place] [id number] Lizbet Magana MD DIAGNOSTIC UPPER GASTROINTESTINAL ENDOSCOPY 05/19/2024 Prep for Surgery [facility] - Gastroenterology, Hepatology & Nutrition [address] [place] [address] Main dg, 7th [place] [address] Anna Braun PA Melena (Primary Dx); Anemia, not otherwise specified 05/17/2024 Orders Only [facility] [place] [facility] [address] [place] [address] Marbella Pereira PA 05/14/2024 Orders Only [facility] Medical Oncology [address] [place] [address] Marbella Pereira PA Cholangiocarcinoma of biliary tract, NOS (Primary Dx) 05/13/2024 Travel 05/12/2024 2:29 PM CDT - 05/29/2024 3:06 PM CDT Hospital Encounter MAIN [address] [address] Vicki Lewis MD Ali, Aliasger, MD Sahar, Hadeel, MD Manzano, Joanna-Grace, MD Kheder, Ed, Stephen Booker MD Nguyen, Son V., MD E coli infection (Primary Dx); Upper gastrointestinal bleeding; Nephrolithiasis; Coronary artery disease due to calcified coronary lesion; Hypothyroidism, not otherwise specified; Melena Discharge Disposition: Home 05/12/2024 Telephone MD [facility] [place] - Cardiology [address] [place] [address] Magnolia Spencer MA 05/12/2024 Travel 05/07/2024 Telephone Cardiopulmonary Center [address] [place] [address] Main dg, 6th [place] [address] Kenisha Medel, TORREY 05/06/2024 Orders Only [facility] [address] [place] [address] Main dg, 7th [place] [address] Marbella Pereira PA 05/04/2024 9:00 AM CDT Infusion MD [facility] - Infusion [address] [place] [address] Marbella Pereira PA Monroe, Celine M, RN Cholangiocarcinoma of biliary tract, NOS (Primary Dx) 05/04/2024 Orders Only Gastrointestinal Center [address] [facility], 7th [place] [address] Marbella Pereira PA Cholangiocarcinoma of biliary tract, NOS (Primary Dx) 05/04/2024 Travel 04/28/2024 Documentation Cardiopulmonary Center [address] [facility], 6th [place] [address] Gem Schmidt 04/26/2024 2:00 PM CDT Telemedicine [facility] - Medical Oncology [address] [place] [address] Dashawn Sutherland MD Cholangiocarcinoma of biliary tract, NOS (Primary Dx); Cholangiocarcinoma 04/26/2024 Orders Only [facility] Medical Oncology [address] [place] [address] Marbella Pereira PA 04/26/2024 Telephone [facility] [place] [facility] Medicine [address] [facility], Floor [address] [place] [address] Karen Helton RN 04/20/2024 9:00 AM CDT Infusion [facility] - [address] [address] Marbella Pereira PA Tran, Nancy K RN Cholangiocarcinoma of biliary tract, NOS (Primary Dx) 04/20/2024 Travel 04/09/2024 10:30 AM CDT Consult Genitourinary Cancer Center [facility], 7th [place] [address] Al Quick IV, MD Calculus of kidney and ureter; Cholangiocarcinoma of biliary tract, NOS 04/09/2024 Prep for Surgery [facility] [address] [place] [address], 7th [place] [address] Tamara Schmid APRN Calculus of ureter (Primary Dx) 04/09/2024 Travel 04/06/2024 2:10 PM CDT Ancillary Procedure [address] [address] Marbella Pereira PA Cholangiocarcinoma of biliary tract, NOS 04/06/2024 8:00 AM CDT Infusion [facility] - Infusion [address] [place] [address] Marbella Pereira PA Thomas, Alice, RN Cholangiocarcinoma of biliary tract, NOS (Primary Dx) 04/06/2024 Travel 03/31/2024 10:00 AM CDT Follow-Up [facility] [address] [place] [address] Dashawn Sutherland MD Cholangiocarcinoma of biliary tract, NOS (Primary Dx) 03/31/2024 Travel 03/25/2024 Orders Only [facility] [address] [place] [address] Marbella Pereira PA Cholangiocarcinoma of biliary tract, NOS (Primary Dx) 03/11/2024 Orders Only [facility] [address] [place] [address], 7th [place] [address] Marbella Pereira PA 03/09/2024 9:00 AM CDT Infusion [facility] - [address] [address] Marbella Pereira PA Tran, Nancy K RN Cholangiocarcinoma of biliary tract, NOS (Primary Dx) 03/09/2024 Travel 03/01/2024 10:30 AM CDT Follow-Up [facility] [address] [place] [address] Dashawn Sutherland MD Cholangiocarcinoma of biliary tract, NOS (Primary Dx); 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 03/01/2024 Travel 02/24/2024 9:00 AM CDT Infusion [facility] - Infusion [address] [place] [address] Marbella Pereira PA Brioso, Cecille, RN Cholangiocarcinoma of biliary tract, NOS (Primary Dx) 02/24/2024 Orders Only [facility] [address] [place] [address], 7th [place] [address] Dashawn Sutherland MD Cholangiocarcinoma of biliary tract, NOS (Primary Dx) 02/24/2024 Travel 02/10/2024 9:00 AM CDT Infusion [facility] - Infusion [address] [place] [address] Dashawn Sutherland MD Thomas, Alice, RN Cholangiocarcinoma of biliary tract, NOS (Primary Dx) 02/10/2024 Travel 02/06/2024 Orders Only [facility] Medical Oncology [address] [place] [address] Marbella Pereira PA Cholangiocarcinoma of biliary tract, NOS (Primary Dx); Hydronephrosis, not otherwise specified; Calculus of ureter 02/06/2024 Orders Only [facility] [address] [place] [address] Marbella Pereira PA Cholangiocarcinoma of biliary tract, NOS (Primary Dx) 02/05/2024 10:20 AM CDT Ancillary Procedure [address] [address] Marbella Pereira PA Cholangiocarcinoma of biliary tract, NOS; Right lower quadrant pain 02/05/2024 Travel 02/03/2024 Orders Only [facility] [address] [place] [address] Main dg, 7th [place] [address] Marbella Pereira PA 02/02/2024 2:00 PM CDT Telemedicine [facility] [address] [place] [address] Dashawn Sutherland MD Right lower quadrant pain (Primary Dx); Cholangiocarcinoma of biliary tract, NOS 01/30/2024 Orders Only [facility] [address] [place] [address] Main dg, 7th [place] [address] Reggie Suarez, [facility] 01/28/2024 Telephone MD [facility] [place] [facility]fusion [address] [place] [address] Cameron Caban Jr., RN Follow-up 01/27/2024 10:00 AM CDT Infusion [facility] [place] [facility] [address] [address] Dashawn Sutherland MD Alegado, Reynaldo F Jr., RN Cholangiocarcinoma of biliary tract, NOS (Primary Dx) 01/27/2024 Documentation Cardiopulmonary Center [address] Main Bldg, 6th [place] [address] Gem Schmidt 01/27/2024 Travel 01/26/2024 1:15 PM CDT Ancillary Procedure [address] [address] Marbella Pereira PA Cholangiocarcinoma of biliary tract, NOS 01/26/2024 Documentation [facility] - Medical Oncology [address] [place] [address] Marbella Pereira PA 01/26/2024 Orders Only [facility] - Medical Oncology [address] [place] [address] Marbella Pereira PA 01/26/2024 Travel 01/20/2024 Orders Only [facility] - Medical Oncology [address] [place] [address] Marbella Pereira PA Cholangiocarcinoma of biliary tract, NOS (Primary Dx) 01/20/2024 Orders Only [facility] [address] Main Bldg, 7th [place] [address] Marbella Pereira PA Cholangiocarcinoma of biliary tract, NOS (Primary Dx) 01/20/2024 Documentation [facility] [address], 6th [place] [address] Gem Schmidt 01/20/2024 Orders Only Card[facility] [address]ldg, 6th [place] [address] Jose Finch MD Immunotherapy for cancer (Primary Dx) 01/20/2024 Orders Only [facility] [address] [place] [phone] Marbella Pereira PA 01/19/2024 3:00 PM MINE SUPERVISOR Follow-Up [facility] [address] [place] [phone] Dashawn Sutherland MD Cholangiocarcinoma of biliary tract, NOS (Primary Dx) 01/19/2024 Orders Only [facility] [address] [facility] 7th [place] [address] Ney Sierra RPH 01/19/2024 Travel 01/16/2024 5:00 PM MINE SUPERVISOR - 01/16/2024 11:59 PM MINE SUPERVISOR Hospital Encounter [facility] [address] [facility], 8th [place] [address] Dashawn Sutherland MD Zarate, Iris Davidson, demand generator manager Disposition: Home 01/16/2024 4:15 PM MINE SUPERVISOR Ancillary Procedure [facility] MRI [address] [facility], 4th [place] [address] Marbella Pereira PA Cholangiocarcinoma of biliary tract, NOS 01/16/2024 Travel 01/14/[address] [address] Isreal Ngo, RN 01/14/2024 Orders Only [facility] [address] [place] [address] Marbella Pereira PA Cholangiocarcinoma of biliary tract, NOS (Primary Dx) 01/14/2024 Travel 01/14/2024 Lab Requisition [facility] Ryan Loredo MD Raza, Roshan 01/14/2024 Lab Requisition [facility] Ryan Loredo MD Jain, Shilpa, MD 01/12/[address] [address] Magnolia Spencer MA 01/09/2024 11:30 PM MINE SUPERVISOR Ancillary Procedure [facility] [address] [place] [phone] Dashawn Sutherland MD Cancer 01/09/2024 11:25 PM MINE SUPERVISOR Ancillary Procedure [facility] [address] [place] [address] Dashawn Sutherland MD Cancer 01/09/2024 11:20 PM MINE SUPERVISOR Ancillary Procedure [facility] [address] [place] [address] Dashawn Sutherland MD Cancer 01/09/2024 11:15 PM MINE SUPERVISOR Ancillary Procedure [facility] [address] [place] [address] Dashawn Sutherland MD Cancer 01/09/2024 Orders Only MD [facility] Medical Oncology [address] [place] [phone] Marbella Pereira PA 01/08/2024 Orders Only [facility] Oncology [address] [place] [phone] Marbella Pereira PA Cholangiocarcinoma of biliary tract, NOS (Primary Dx) 01/07/2024 2:35 PM MINE SUPERVISOR Ancillary Procedure [address] [address] Dashawn Sutherland MD Cholangiocarcinoma of biliary tract, NOS 01/07/2024 1:00 PM MINE SUPERVISOR Office Visit [facility] Medical Oncology [address] [place] [phone] Dashawn Sutherland MD Cholangiocarcinoma of biliary tract, NOS (Primary Dx) 01/07/2024 12:30 PM MINE SUPERVISOR NPR MDA PATIENT ACCESS 01/07/2024 Orders Only [facility] Medical Oncology [address] [place] [address] Marbella Pereira PA Cholangiocarcinoma of biliary tract, NOS (Primary Dx) 01/07/2024 Travel 01/05/2024 Orders Only [facility] Main [facility], 7th [place] [address] Dashawn Sutherland MD Cholangiocarcinoma of biliary tract, NOS (Primary Dx) 12/26/2023 Telephone Gastrointestinal Center [facility] Main [facility], 7th [place] [address] Kristine Farias, RN after 07/05/2023 Surgical History Surgery Date Site/Laterality Comments COLONOSCOPY 2019 Clear CORONARY ARTERY BYPASS GRAFT 2012 URETERAL STENT PLACEMENT Right CORONARY ANGIOPLASTY WITH ST ENT PLACEMENT 03/10/2024 x2 CHOLECYSTECTOMY 06/09/2023 CATARACT EXTRACTION EXTRACAP SULAR W/ INTRAOCULAR LENS IMPLANTATION 11/17/2022 - 11/16/2023 Bilateral 08/2023 and 10/2023 BILE DUCT STENT PLACEMENT 12/23/2023 metal stent CO ESOPHAGOGASTRODUODENOSCOP Y TRANSORAL DIAGNOSTIC 05/21/2024 Esophagus/N/A Procedure: DIAGNOSTIC UPPER GASTROINTESTINAL ENDOSCOPY; Surgeon: Lizbet Magana MD; Location: MAIN ENDOSCOPY; Service: GASTROENTEROLOGY CO COLONOSCOPY FLX DX W/DEEPAK J SPEC WHEN PFRMD 05/21/2024 N/A Procedure: DIAGNOSTIC FLEXIBLE COLONOSCOPY PROXIMAL TO SPLENIC FLEXURE; Surgeon: Lizbet Magana MD; Location: MAIN ENDOSCOPY; Service: GASTROENTEROLOGY CO ESOPHAGOGASTRODUODENOSCOP Y TRANSORAL DIAGNOSTIC 05/27/2024 Esophagus/N/A Procedure: DIAGNOSTIC UPPER GASTROINTESTINAL ENDOSCOPY; Surgeon: Alan Griffith MD; Location: MAIN ENDOSCOPY; Service: GASTROENTEROLOGY CO GI TRC IMG INTRALUMINAL ESOPHAGUS-ILEUM W/I&R 05/27/2024 N/A Procedure: INTRALUMINAL GASTROINTESTINAL TRACT IMAGING OF ESOPHAGUS THROUGH ILEUM; Surgeon: Alan Griffith MD; Location: MAIN ENDOSCOPY; Service: GASTROENTEROLOGY CO GI TRC IMG INTRALUMINAL ESOPHAGUS-ILEUM W/I&R 05/27/2024 N/A Procedure: READING FOR INTRALUMINAL GASTROINTESTINAL TRACT IMAGING OF ESOPHAGUS THROUGH ILEUM; Surgeon: Alan Griffith MD; Location: MAIN ENDOSCOPY; Service: GASTROENTEROLOGY CO CYSTO W/URETEROSCOPY W/RMVL/MANJ STONES 06/19/2024 Ureter/Right Procedure: CYSTOURETHROSCOPY WITH URETEROROSCOPY &/OR PYELOSCOPY, W/ REMOVAL/MANIPULATION OF CALCULUS; Surgeon: Al Quick IV, MD; Location: MAIN OR; Service: UROLOGY Medical devices from this surgery are in the Medical Devices section. CO CYSTO W/URETEROSCOPY W/LITHOTRIPSY 06/19/2024 Ureter/Right Procedure: CYSTOURETHROSCOPY WITH URETEROROSCOPY &/OR PYELOSCOPY, W/ LITHOTRIPSY; Surgeon: Al Quick IV, MD; Location: MAIN OR; Service: UROLOGY Medical devices from this surgery are in the Medical Devices section. Medical History Medical History Date Comments Myocardial infarction 10/2013 Hyperlipidemia 2010 Hearing loss 2009 Wears hearing ai ds 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 Sexual dysfunction 2016 Malignant neoplasm of prostate 2016 Squamous cell carcinoma in situ of skin 2019 Basal cell carcinoma of skin 2019 Anticoagulant therapy Myocardial infarction 02/2024 mild heart attack, no residual effect Prediabetes Cholangiocarcinoma Essential (primary) hypertension Neuropathy Hypothyroidism Stented coronary artery 03/10/2024 Coronary bypass graft finding Encounter for blood transfusion Sleep apnea Family History Medical History Relation Name Comments Pancreatic cancer Mother Verna flores Relation Name Status Comments Father Nabeel [place] (Age 92) nattural c auses Mother Verna flores (Age 80) ca ncer Social History Tobacco Use Types Packs/Day Years Used Date Smoking Tobacco: Never Passive Smoke Exposure: Never Smokeless Tobacco: Never Tobacco Cessation:Counseling Given: Not Answered Alcohol Use Standard Drinks/Week Comments Not Currently [...] Sign Reading Time Taken Comments Blood Pressure 146/68 07/05/2024 7:40 AM CDT Pulse 68 07/05/2024 7:40 AM CDT Temperature 36.9 C (98.4 F) 07/05/2024 7:40 AM CD T Respiratory Rate 18 07/05/2024 7:40 AM CDT Oxygen Saturation 96% 07/05/2024 7:40 AM CDT Inhaled Oxygen Concentration - - Weight 73.3 kg (161 lb 9.6 oz) 07/04/2024 8:01 P M CDT Height 165.1 cm (5' 5") 07/04/2024 8:01 PM CDT Body Mass Index 26.89 07/04/2024 8:01 PM CDT Plan of Treatment Upcoming Encounters Date Type Department Care Team (Latest Contact Info) Description 06/23/2024 11:59 PM CDT Anesthesia Event Perioperative Evaluation and Management Center [address] [place] [address], 6th [place] [address] Fátima Alves, RN [address] [place] [phone] [email or web address] 07/05/2024 8:00 PM CDT Ancillary Procedure [facility] [address] [place] [address] Nery Rasheed MD [address] [place] [phone] [email or web address] Arrived 07/06/2024 10:00 AM CDT Clinical Support MD Landon Ashraf - Infusion [address] [place] [address] Marbella Pereira PA [address] [place] [phone] [email or web address] 07/08/2024 3:00 PM CDT Follow-Up Cardiopulmonary Center [address] [place] [address], 6th [place] [address] Graeme Suarez MD [address] [place] [phone] [email or web address] 07/13/2024 9:15 AM CDT Lab MD Landon Ashraf - Diagnostic Laboratory Center [address] [place] [address] Marbella Pereira PA [address] [place] [phone] [email or web address] 07/13/2024 10:15 AM CDT Infusion MD Landon [place] - Infusion [address] [facility] 4th [place] [address] Marbella Pereira PA [address] [place] [phone] [email or web address] 07/16/2024 8:30 AM CDT Ancillary Procedure MD Landon [place] [address] [facility] 2nd [place] [address] Marbella Pereira PA [address] [place] [phone] [email or web address] 07/20/2024 10:20 AM CDT Appointment Vascular Access and Procedures Center [address] [place] [address], 8th [place] [address] Marbella Pereira PA [address] [place] [phone] [email or web address] 07/20/[email or web address] 12:30 PM CDT Ancillary Procedure General Ultrasound [address] [place] [address], 5th [place] [address] Al Quick IV, MD [address] [place] [phone] [email or web address] 07/20/2024 3:00 PM CDT Telemedicine Genitourinary Cancer Center [address] [place] [address], 7th [place] [address] Al Quick IV, MD [address] [place] [phone] 07/21/2024 8:30 AM CDT Follow-Up MD [facility] [place] [facility] [address] [place] [address] Dashawn Sutherland MD [address] [place] [phone] [email or web address] 07/23/2024 4:30 PM CDT POEM Appointments Perioperative Evaluation and Management Center [address] [place] [address], 6th [place] [address] Dashawn Sutherland MD [address] [place] [phone] [email or web address] 07/26/2024 9:15 AM CDT Hospital Encounter Pre-Op/Surgery Check-In [address] [facility], 4th [place] [address] Jac Craig MD [address] [place] [phone] 07/26/2024 9:15 AM CDT - 07/26/2024 10:45 AM CDT Surgery Pre-Op/Surgery Check-In [address] [facility], 4th [place] [address] Jac Craig MD [address] [place] [address] PORT-A-CATH PLACEMENT 07/26/2024 9:40 AM CDT Appointment [facility] Access [facility] Procedures Center [address] [place] [address], 8th [place] [address] Marbella Pereira PA [address] [place] [address] 07/27/2024 8:15 AM CDT Lab MD [facility] [place] [facility] [address] [facility] 1st [place] [address] Marbella Pereira PA [address] [place] [address] [email or web address] 07/27/2024 10:30 AM CDT Infusion [facility] [address] [facility], 8th [place] [address] Marbella Pereira PA [address] [place] [address] Scheduled Procedures Name Priority Associated Diagnoses Date/Ti me PORT-A-CATH PLACEMENT Cholangiocarcinoma 07/26/2024 9:15 AM CDT FLUORO GUIDANCE FOR CENTRAL VENOUS ACCESS DEVICE PLACEMENT, REPLACEMENT, OR REMOVAL Cholangiocarcinoma 07/26/2024 9:15 AM CDT US GUIDANCE WITH EVAL OF POTENTIAL ACCESS SITES, REALTIME US VISUALIZATION OF VASC NEEDLE ENTRY Cholangiocarcinoma 07/26/2024 9:15 AM CDT Health Maintenance Due Date Last Done Comments Pneumococcal Vaccine: 65+ Ye ars (1 of 2 - PCV) 1951 COVID-19 Vaccine (3 - Moderna risk series) 01/23/2021 12/26/2020, 11/29/2020 Influenza Vaccine 07/18/2024 Medical Devices Implanted Type Area Neon Sign Servicer Device Identifier Shelf Expiration Date Model / Serial / Lot Cardiac Stent Stent Description:Per MD [facility] policy conditional Biliary Stent-01/14/2024 Implanted:01/14 (Quantity not on file) Stent Bile Duct Description:Placed in 024 at [facility], Per in Dr.Brown pena to proceed up to 3T on normal operating mode. Cleared on 01/16/24 @4:20pm Stent Ureteral Firm 6fr X 24cm - Sn/A Implanted:Qty: 1 on 06/19/2024 by Al Quick IV, MD at [facility] Stent Right: Ureter [employer] 12/01/2026 [id number] / N/A / [id number] Stent Right: Kidney Procedures The patient is currently admitted. The information in this section might not be complete until the patient is discharged. Procedure Name Priority Date/Time Associated Diagnosis Comments HEMOGLOBIN STAT 07/05/2024 9:19 AM CDT POC GLUCOSE SCREEN Routine 07/05/2024 8:38 AM CDT TRANSFUSE RED BLOOD CELLS Routine 2023 3:43 AM CDT PREPARE RBC Routine 07/05/2024 2:20 AM CDT .CBC Routine 07/05/2024 1:49 AM CDT TYPE AND SCREEN Routine 07/05/2024 1:49 AM CDT PHOSPHORUS LEVEL Routine 07/05/2024 1:49 AM CDT MAGNESIUM LEVEL Routine 07/05/2024 1:49 AM CDT COMPREHENSIVE METABOLIC PANEL Routine 1:49 AM CDT COMPLETE BLOOD COUNT W/ DIFFERENTIAL Routine 07/05/2024 1:49 AM CDT POC GLUCOSE SCREEN Routine 07/04/2024 9:33 PM CDT POC GLUCOSE SCREEN Routine 07/04/2024 7:57 PM CDT US RENAL Routine 07/04/2024 1:48 PM CDT RESPIRATORY MULTIPLEX PCR PANEL, NASOPHARYNGEAL SWAB Routine 07/04/2024 12:50 PM CDT URINALYSIS WITH MICROSCOPIC IF INDICATED Routine 07/04/2024 12:16 PM CDT POC VENOUS BLOOD GAS + LACTATE Routine 0 07/04/2024 12:11 PM CDT .CBC Routine 07/04/2024 12:04 PM CDT HC PROCALCITONIN (PCT) Routine 12:04 PM CDT C REACTIVE PROTEIN Routine 07/04/2024 12:04 PM CDT LACTATE DEHYDROGENASE Routine 07/04/2024 12:04 PM CDT FRACTIONATED BILIRUBIN Routine 12:04 PM CDT PHOSPHORUS LEVEL Routine 07/04/2024 12:04 PM CDT MAGNESIUM LEVEL Routine 07/04/2024 12:04 PM CDT COMPREHENSIVE METABOLIC PANEL Routine 12:04 PM CDT COMPLETE BLOOD COUNT W/ DIFFERENTIAL Routine 07/04/2024 12:04 PM CDT BLOOD CULTURE Routine 07/04/2024 12:[address] CHEST ABDOMEN PELVIS Routine 06/17 9:18 AM CDT OSI CHEST Routine 07/04/2024 9:17 AM CDT Cholangiocarc inoma DIFFERENTIAL Routine 06/29/2024 9:49 AM CDT Cholangiocarc inoma .CBC Routine 06/29/2024 9:49 AM CDT Cholangiocarc inoma CARCINOEMBRYONIC ANTIGEN Routine 024 9:49 AM CDT Cholangiocarc inoma CARBOHYDRATE ANTIGEN 19-9 Routine 2023 9:49 AM CDT Cholangiocarc inoma FREE THYROXINE Routine 06/29/2024 9:49 AM CDT Cholangiocarc inoma THYROID STIMULATING HORMONE Routine 06/17 9:49 AM CDT Cholangiocarc inoma COMPLETE BLOOD COUNT W/ DIFFERENTIAL Routine 06/29/2024 9:49 AM CDT Cholangiocarc inoma COMPREHENSIVE METABOLIC PANEL Routine 9:49 AM CDT Cholangiocarc inoma POC GLUCOSE SCREEN Routine 06/19/2024 1:06 PM CDT FL PORTABLE FLUOROSCOPY Routine 06/19/20 11:57 AM CDT Calculus of kidney and ureter PATHOLOGY SURGICAL INTERPRETATION Routine 06/19/2024 8:42 AM CDT Calculus of kidney and ureter STONE ANALYSIS KIDNEY Routine 06/19/2024 8:42 AM CDT CO CYSTO W/URETEROSCOPY W/LITHOTRIPSY 06/19/2024 7:28 AM CDT Calculus of kidney and ureter Special Needs [email or web address] case to remain in a first startNeed following items for case: access sheath (not sure of the size yet), the flexible ureteroscope, 200 micron laser, NGage basket, and fluoro. CO CYSTO W/URETEROSCOPY W/RMVL/MANJ STONES 06/19/2024 7:28 AM CDT Calculus of kidney and ureter Special Needs [email or web address] case to remain in a first startNeed following items for case: access sheath (not sure of the size yet), the flexible ureteroscope, 200 micron laser, NGage basket, and fluoro. POC GLUCOSE SCREEN Routine 06/19/2024 6:41 AM CDT DIFFERENTIAL Routine 06/15/2024 7:31 AM CDT Cholangiocarc inoma MDA CP PRMYEF Routine 06/15/2024 7:31 AM CDT Cholangiocarc inoma .CBC Routine 06/15/2024 7:31 AM CDT Cholangiocarc inoma COMPLETE BLOOD COUNT W/ DIFFERENTIAL Routine 06/15/2024 7:31 AM CDT Cholangiocarc inoma COMPREHENSIVE METABOLIC PANEL Routine 7:31 AM CDT Cholangiocarc inoma VAP PORT REMOVAL Routine 06/07/2024 10:15 AM CDT Cholangiocarc inoma of biliary tract, NOS XR CHEST 1 VW PORTABLE STAT 9:19 AM CDT Encounter for adjustment and management of vascular access device VAP PICC INSERTION W US >5 YEARS OLD Routine 06/07/2024 8:38 AM CDT Cholangiocarc inoma of biliary tract, NOS VERIFY CATHETER TIP PLACEMENT Routine 7:00 AM CDT Encounter for adjustment and management of vascular access device MDA CP PLATELET COUNT Routine 06/07/2024 6:45 AM CDT Encounter for adjustment and management of vascular access device PROTHROMBIN TIME Routine 06/07/2024 6:45 AM CDT Encounter for adjustment and management of vascular access device PLATELET COUNT Routine 06/07/2024 6:45 AM CDT Encounter for adjustment and management of vascular access device DIFFERENTIAL Routine 06/02/2024 10:20 AM CDT Cholangiocarc inoma MDA CP PRMYEF Routine 06/02/2024 10:20 AM CDT Cholangiocarc inoma .CBC Routine 06/02/2024 10:20 AM CDT Cholangiocarc inoma CARCINOEMBRYONIC ANTIGEN Routine 024 10:20 AM CDT Cholangiocarc inoma CARBOHYDRATE ANTIGEN 19-9 Routine 2023 10:20 AM CDT Cholangiocarc inoma FREE THYROXINE Routine 06/02/2024 10:20 AM CDT Cholangiocarc inoma THYROID STIMULATING HORMONE Routine 05/17 10:20 AM CDT Cholangiocarc inoma COMPLETE BLOOD COUNT W/ DIFFERENTIAL Routine 06/02/2024 10:20 AM CDT Cholangiocarc inoma COMPREHENSIVE METABOLIC PANEL Routine 10:20 AM CDT Cholangiocarc inoma GALECTIN 3 Routine 06/02/2024 10:20 AM CDT Cholangiocarc inoma POC GLUCOSE SCREEN Routine 05/29/2024 7:18 AM CDT DIFFERENTIAL Routine 05/29/2024 4:40 AM CDT MDA CP PRMYEF Routine 05/29/2024 4:40 AM CDT .CBC Routine 05/29/2024 4:40 AM CDT PHOSPHORUS LEVEL Routine 05/29/2024 4:40 AM CDT MAGNESIUM LEVEL Routine 05/29/2024 4:40 AM CDT COMPREHENSIVE METABOLIC PANEL Routine 4:40 AM CDT COMPLETE BLOOD COUNT W/ DIFFERENTIAL Routine 05/29/2024 4:40 AM CDT POC GLUCOSE SCREEN Routine 05/28/2024 9:51 PM CDT MDA CP HEMOGRAM STAT 05/28/2024 5:38 PM CDT COMPLETE BLOOD COUNT W/ INDICES STAT 05/28/2024 5:38 PM CDT POC GLUCOSE SCREEN Routine 05/28/2024 4:55 PM CDT POC GLUCOSE SCREEN Routine 05/28/2024 2:13 PM CDT POC GLUCOSE SCREEN Routine 05/28/2024 7:30 AM CDT DIFFERENTIAL Routine 05/28/2024 5:37 AM CDT MDA CP PRMYEF Routine 05/28/2024 5:37 AM CDT .CBC Routine 05/28/2024 5:37 AM CDT TYPE AND SCREEN Routine 05/28/2024 5:37 AM CDT PHOSPHORUS LEVEL Routine 05/28/2024 5:37 AM CDT MAGNESIUM LEVEL Routine 05/28/2024 5:37 AM CDT COMPREHENSIVE METABOLIC PANEL Routine 5:37 AM CDT COMPLETE BLOOD COUNT W/ DIFFERENTIAL Routine 05/28/2024 5:37 AM CDT POC GLUCOSE SCREEN Routine 05/27/2024 11:01 PM CDT POC GLUCOSE SCREEN Routine 05/27/2024 5:29 PM CDT POC GLUCOSE SCREEN Routine 05/27/2024 1:30 PM CDT CO GI TRC IMG INTRALUMINAL ESOPHAGUS-ILEUM W/I&R 05/27/2024 9:19 AM CDT Melena Anemia, not otherwise specified 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 restarted 05/25 after > 7 day hold. LD 05/26. Do not plan for biopsy, clipping or procedural intervention that increases bleeding risk. 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 restarted 9 after > 7 day hold. LD 05/26. Do not plan for biopsy, clipping or procedural intervention that increases bleeding risk. on losartan CO ESOPHAGOGASTRODUODENOSCOP Y TRANSORAL DIAGNOSTIC 05/27/2024 9:19 AM CDT Melena Anemia, not otherwise specified 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 restarted 7/9 after > 7 day hold. LD 05/26. Do not plan for biopsy, clipping or procedural intervention that increases bleeding risk. on losartan POC GLUCOSE SCREEN Routine 05/27/2024 6:43 AM CDT DIFFERENTIAL Routine 05/27/2024 5:13 AM CDT MDA CP PRMYEF Routine 05/27/2024 5:13 AM CDT .CBC Routine 05/27/2024 5:13 AM CDT PHOSPHORUS LEVEL Routine 05/27/2024 5:13 AM CDT MAGNESIUM LEVEL Routine 05/27/2024 5:13 AM CDT COMPREHENSIVE METABOLIC PANEL Routine 5:13 AM CDT COMPLETE BLOOD COUNT W/ DIFFERENTIAL Routine 05/27/2024 5:13 AM CDT POC GLUCOSE SCREEN Routine 05/26/2024 9:26 PM CDT POC GLUCOSE SCREEN Routine 05/26/2024 4:52 PM CDT POC GLUCOSE SCREEN Routine 05/26/2024 1:48 PM CDT POC GLUCOSE SCREEN Routine 05/26/2024 7:07 AM CDT DIFFERENTIAL Routine 05/26/2024 5:34 AM CDT MDA CP PRMYEF Routine 05/26/2024 5:34 AM CDT .CBC Routine 05/26/2024 5:34 AM CDT FREE THYROXINE Routine 05/26/2024 5:34 AM CDT THYROID STIMULATING HORMONE Routine 05/17 5:34 AM CDT FERRITIN Routine 05/26/2024 5:34 AM CDT TRANSFERRIN Routine 05/26/2024 5:34 AM CDT IRON LEVEL Routine 05/26/2024 5:34 AM CDT HEPATITIS C VIRUS ANTIBODY Routine 05/26 5:34 AM CDT HEPATITIS B SURFACE ANTIBODY Routine 08/2024 5:34 AM CDT HEPATITIS B SURFACE ANTIGEN Routine 05/17 5:34 AM CDT HEPATITIS B CORE ANTIBODY Routine 2023 5:34 AM CDT VITAMIN D 25 HYDROXY LEVEL Routine 05/26 5:34 AM CDT COPPER LEVEL Routine 05/26/2024 5:34 AM CDT VITAMIN E LEVEL Routine 05/26/2024 5:34 AM CDT HOMOCYSTEINE TOTAL Routine 05/26/2024 5:34 AM CDT METHYLMALONIC ACID QUANTATIV E SERUM Routine 05/26/2024 5:34 AM CDT VITAMIN B6 LEVEL Routine 05/26/2024 5:34 AM CDT VITAMIN B1 Routine 05/26/2024 5:34 AM CDT VITAMIN B12 LEVEL Routine 05/26/2024 5:34 AM CDT FOLATE, RED BLOOD CELLS Routine 05/26/20 5:34 AM CDT FOLATE LEVEL Routine 05/26/2024 5:34 AM CDT PHOSPHORUS LEVEL Routine 05/26/2024 5:34 AM CDT MAGNESIUM LEVEL Routine 05/26/2024 5:34 AM CDT COMPREHENSIVE METABOLIC PANEL Routine 5:34 AM CDT COMPLETE BLOOD COUNT W/ DIFFERENTIAL Routine 05/26/2024 5:34 AM CDT POC GLUCOSE SCREEN Routine 05/25/2024 11:09 PM CDT POC GLUCOSE SCREEN Routine 05/25/2024 5:05 PM CDT POC GLUCOSE SCREEN Routine 05/25/2024 9:26 AM CDT DIFFERENTIAL Routine 05/25/2024 4:48 AM CDT HEPATIC FUNCTION PANEL Add-On 4:48 AM CDT MDA CP PRMYEF Routine 05/25/2024 4:48 AM CDT .CBC Routine 05/25/2024 4:48 AM CDT PHOSPHORUS LEVEL Routine 05/25/2024 4:48 AM CDT MAGNESIUM LEVEL Routine 05/25/2024 4:48 AM CDT BASIC METABOLIC PANEL, CALCI UM TOTAL Routine 05/25/2024 4:48 AM CDT COMPLETE BLOOD COUNT W/ DIFFERENTIAL Routine 05/25/2024 4:48 AM CDT FIBRINOGEN Routine 05/25/2024 4:48 AM CDT APTT Routine 05/25/2024 4:48 AM CDT PROTHROMBIN TIME Routine 05/25/2024 4:48 AM CDT TRANSFUSE RED BLOOD CELLS Routine 2023 10:10 PM CDT POC GLUCOSE SCREEN Routine 05/24/2024 7:47 PM CDT TYPE AND SCREEN Routine 05/24/2024 3:56 PM CDT POC GLUCOSE SCREEN Routine 05/24/2024 10:11 AM CDT PREPARE RBC Routine 05/24/2024 6:26 AM CDT DIFFERENTIAL Routine 05/24/2024 12:18 AM CDT MDA CP PRMYEF Routine 05/24/2024 12:18 AM CDT .CBC Routine 05/24/2024 12:18 AM CDT PHOSPHORUS LEVEL Routine 05/24/2024 12:18 AM CDT MAGNESIUM LEVEL Routine 05/24/2024 12:18 AM CDT BASIC METABOLIC PANEL, CALCI UM TOTAL Routine 05/24/2024 12:18 AM CDT COMPLETE BLOOD COUNT W/ DIFFERENTIAL Routine 05/24/2024 12:18 AM CDT POC GLUCOSE SCREEN Routine 05/23/2024 9:20 PM CDT POC GLUCOSE SCREEN Routine 05/23/2024 5:51 PM CDT POC GLUCOSE SCREEN Routine 05/23/2024 2:25 PM CDT POC GLUCOSE SCREEN Routine 05/23/2024 7:55 AM CDT DIFFERENTIAL Routine 05/23/2024 6:26 AM CDT MDA CP PRMYEF Routine 05/23/2024 6:26 AM CDT .CBC Routine 05/23/2024 6:26 AM CDT PHOSPHORUS LEVEL Routine 05/23/2024 6:26 AM CDT MAGNESIUM LEVEL Routine 05/23/2024 6:26 AM CDT BASIC METABOLIC PANEL, CALCI UM TOTAL Routine 05/23/2024 6:26 AM CDT COMPLETE BLOOD COUNT W/ DIFFERENTIAL Routine 05/23/2024 6:26 AM CDT POC GLUCOSE SCREEN Routine 05/22/2024 9:19 PM CDT POC GLUCOSE SCREEN Routine 05/22/2024 8:19 PM CDT MDA CP HEMOGRAM Routine 05/22/2024 7:59 PM CDT COMPLETE BLOOD COUNT W/ INDICES Routine 05/22/2024 7:59 PM CDT POC GLUCOSE SCREEN Routine 05/22/2024 7:47 AM CDT DIFFERENTIAL Routine 05/22/2024 5:36 AM CDT MDA CP PRMYEF Routine 05/22/2024 5:36 AM CDT .CBC Routine 05/22/2024 5:36 AM CDT PHOSPHORUS LEVEL Routine 05/22/2024 5:36 AM CDT MAGNESIUM LEVEL Routine 05/22/2024 5:36 AM CDT BASIC METABOLIC PANEL, CALCI UM TOTAL Routine 05/22/2024 5:36 AM CDT COMPLETE BLOOD COUNT W/ DIFFERENTIAL Routine 05/22/2024 5:36 AM CDT POC GLUCOSE SCREEN Routine 05/21/2024 10:25 PM CDT POC GLUCOSE SCREEN Routine 05/21/2024 6:04 PM CDT POC GLUCOSE SCREEN Routine 05/21/2024 3:08 PM CDT CO COLONOSCOPY FLX DX W/DEEPAK J SPEC WHEN PFRMD 05/21/2024 1:54 PM CDT Melena Anemia, not otherwise specified Special Needs LD plavix 05/15; recent CT (02/2024) with stent. Cardiology reviewed and reports patiet is at intermediate risk for low to intermiediate risk surgery and no further testing is needed before proceudre. CO ESOPHAGOGASTRODUODENOSCOP Y TRANSORAL DIAGNOSTIC 05/21/2024 1:54 PM CDT Melena Anemia, not otherwise specified Special Needs LD plavix 05/15; recent CT (02/2024) with stent. Cardiology reviewed and reports patiet is at intermediate risk for low to intermiediate risk surgery and no further testing is needed before proceudre. POC GLUCOSE SCREEN Routine 05/21/2024 1:29 PM CDT MDA CP HEMOGRAM Routine 05/21/2024 12:29 PM CDT COMPLETE BLOOD COUNT W/ INDICES Routine 05/21/2024 12:29 PM CDT PREPARE RBC STAT 05/21/2024 11:38 AM CDT TRANSFUSE RED BLOOD CELLS Routine 2023 8:20 AM CDT POC GLUCOSE SCREEN Routine 05/21/2024 8:15 AM CDT PREPARE RBC Routine 05/21/2024 6:29 AM CDT DIFFERENTIAL Routine 05/21/2024 12:47 AM CDT MDA CP PRMYEF Routine 05/21/2024 12:47 AM CDT .CBC Routine 05/21/2024 12:47 AM CDT PHOSPHORUS LEVEL Routine 05/21/2024 12:47 AM CDT MAGNESIUM LEVEL Routine 05/21/2024 12:47 AM CDT BASIC METABOLIC PANEL, CALCI UM TOTAL Routine 05/21/2024 12:47 AM CDT COMPLETE BLOOD COUNT W/ DIFFERENTIAL Routine 05/21/2024 12:47 AM CDT POC GLUCOSE SCREEN Routine 05/20/2024 8:38 PM CDT TRANSFUSE RED BLOOD CELLS Routine 2023 10:21 AM CDT POC GLUCOSE SCREEN Routine 05/20/2024 7:39 AM CDT PREPARE RBC Routine 05/20/2024 6:37 AM CDT PREPARE RBC Routine 05/20/2024 6:31 AM CDT DIFFERENTIAL Routine 05/20/2024 5:50 AM CDT MDA CP PRMYEF Routine 05/20/2024 5:50 AM CDT .CBC Routine 05/20/2024 5:50 AM CDT PHOSPHORUS LEVEL Routine 05/20/2024 5:50 AM CDT MAGNESIUM LEVEL Routine 05/20/2024 5:50 AM CDT BASIC METABOLIC PANEL, CALCI UM TOTAL Routine 05/20/2024 5:50 AM CDT COMPLETE BLOOD COUNT W/ DIFFERENTIAL Routine 05/20/2024 5:50 AM CDT POC GLUCOSE SCREEN Routine 05/19/2024 9:40 PM CDT POC GLUCOSE SCREEN Routine 05/19/2024 2:55 PM CDT POC GLUCOSE SCREEN Routine 05/19/2024 11:19 AM CDT POC GLUCOSE SCREEN Routine 05/19/2024 8:21 AM CDT TYPE AND SCREEN Routine 05/19/2024 8:03 AM CDT DIFFERENTIAL Routine 05/19/2024 6:06 AM CDT MDA CP PRMYEF Routine 05/19/2024 6:06 AM CDT .CBC Routine 05/19/2024 6:06 AM CDT PHOSPHORUS LEVEL Routine 05/19/2024 6:06 AM CDT MAGNESIUM LEVEL Routine 05/19/2024 6:06 AM CDT BASIC METABOLIC PANEL, CALCI UM TOTAL Routine 05/19/2024 6:06 AM CDT COMPLETE BLOOD COUNT W/ DIFFERENTIAL Routine 05/19/2024 6:06 AM CDT POC GLUCOSE SCREEN Routine 05/18/2024 11:24 PM CDT POC GLUCOSE SCREEN Routine 05/18/2024 4:16 PM CDT TRANSFUSE RED BLOOD CELLS Routine 2023 10:07 AM CDT POC GLUCOSE SCREEN Routine 05/18/2024 8:05 AM CDT PREPARE RBC Routine 05/18/2024 6:44 AM CDT DIFFERENTIAL Routine 05/18/2024 5:58 AM CDT MDA CP PRMYEF Routine 05/18/2024 5:58 AM CDT .CBC Routine 05/18/2024 5:58 AM CDT PHOSPHORUS LEVEL Routine 05/18/2024 5:58 AM CDT MAGNESIUM LEVEL Routine 05/18/2024 5:58 AM CDT BASIC METABOLIC PANEL, CALCI UM TOTAL Routine 05/18/2024 5:58 AM CDT COMPLETE BLOOD COUNT W/ DIFFERENTIAL Routine 05/18/2024 5:58 AM CDT EKG, 12-LEAD (PORTABLE) Routine 05/18/2024 POC GLUCOSE SCREEN Routine 05/17/2024 12:08 PM CDT POC GLUCOSE SCREEN Routine 05/17/2024 7:18 AM CDT DIFFERENTIAL Routine 05/17/2024 6:03 AM CDT .CBC Routine 05/17/2024 6:03 AM CDT PHOSPHORUS LEVEL Routine 05/17/2024 6:03 AM CDT MAGNESIUM LEVEL Routine 05/17/2024 6:03 AM CDT BASIC METABOLIC PANEL, CALCI UM TOTAL Routine 05/17/2024 6:03 AM CDT COMPLETE BLOOD COUNT W/ DIFFERENTIAL Routine 05/17/2024 6:03 AM CDT POC GLUCOSE SCREEN Routine 05/16/2024 5:38 PM CDT TRANSFUSE RED BLOOD CELLS Routine 2023 5:25 PM CDT TRANSFUSE RED BLOOD CELLS Routine 2023 11:00 AM CDT TYPE AND SCREEN STAT 05/16/2024 4:16 AM CDT PREPARE RBC Routine 05/16/2024 3:51 AM CDT HEMOGLOBIN A1C Add-On 05/16/2024 2:54 AM CDT DIFFERENTIAL Routine 05/16/2024 2:54 AM CDT .CBC Routine 05/16/2024 2:54 AM CDT PHOSPHORUS LEVEL Routine 05/16/2024 2:54 AM CDT MAGNESIUM LEVEL Routine 05/16/2024 2:54 AM CDT BASIC METABOLIC PANEL, CALCI UM TOTAL Routine 05/16/2024 2:54 AM CDT COMPLETE BLOOD COUNT W/ DIFFERENTIAL Routine 05/16/2024 2:54 AM CDT POC GLUCOSE SCREEN Routine 05/15/2024 10:02 PM CDT POC GLUCOSE SCREEN Routine 05/15/2024 6:16 PM CDT FECAL OCCULT BLOOD, STOOL Routine 2023 1:54 PM CDT POC GLUCOSE SCREEN Routine 05/15/2024 1:38 PM CDT XR CHEST 1 VW Routine 05/15/2024 9:33 AM CDT POC GLUCOSE SCREEN Routine 05/15/2024 8:34 AM CDT DIFFERENTIAL Routine 05/15/2024 5:48 AM CDT .CBC Routine 05/15/2024 5:48 AM CDT PHOSPHORUS LEVEL Routine 05/15/2024 5:48 AM CDT MAGNESIUM LEVEL Routine 05/15/2024 5:48 AM CDT BASIC METABOLIC PANEL, CALCI UM TOTAL Routine 05/15/2024 5:48 AM CDT COMPLETE BLOOD COUNT W/ DIFFERENTIAL Routine 05/15/2024 5:48 AM CDT POC GLUCOSE SCREEN Routine 05/14/2024 11:08 PM CDT TRANSFUSE RED BLOOD CELLS Routine 2023 9:47 PM CDT URINALYSIS WITH MICROSCOPIC Routine 04/18 6:26 PM CDT POC GLUCOSE SCREEN Routine 05/14/2024 5:51 PM CDT ECHOCARDIOGRAM 2D COMPLETE Routine 05/14 4:10 PM CDT POC GLUCOSE SCREEN Routine 05/14/2024 12:39 PM CDT PREPARE RBC Routine 05/14/2024 12:04 PM CDT NT PRO BNP Add-On 05/14/2024 10:09 AM CDT DIFFERENTIAL STAT 05/14/2024 10:09 AM CDT .CBC STAT 05/14/2024 10:09 AM CDT COMPREHENSIVE METABOLIC PANEL STAT 10:09 AM CDT COMPLETE BLOOD COUNT W/ DIFFERENTIAL STAT 05/14/2024 10:09 AM CDT MAGNESIUM LEVEL Routine 05/14/2024 10:09 AM CDT BLOOD CULTURE Routine 05/14/2024 10:09 AM CDT POC GLUCOSE SCREEN Routine 05/14/2024 8:38 AM CDT POC GLUCOSE SCREEN Routine 05/13/2024 11:35 PM CDT POC GLUCOSE SCREEN Routine 05/13/2024 4:08 PM CDT POC GLUCOSE SCREEN Routine 05/13/2024 1:[address] ABDOMEN PELVIS W WO CONTRAST KIDNEY Routine 05/13/2024 10:51 AM CDT POC GLUCOSE SCREEN Routine 05/13/2024 8:08 AM CDT POC GLUCOSE SCREEN Routine 05/12/2024 8:51 PM CDT NOCTURNAL NIPPV (CPAP OR BIPAP) Routine 05/12/2024 5:57 PM CDT URINALYSIS MICROSCOPIC EXAM Routine 04/18 3:32 PM CDT URINALYSIS WITH MICROSCOPIC IF INDICATED Routine 05/12/2024 3:32 PM CDT URINE CULTURE Routine 05/12/2024 3:32 PM CDT CONFIRM ABORH TYPE STAT 05/12/2024 3:18 PM CDT POC VENOUS BLOOD GAS + LACTATE Routine 0 05/12/2024 3:16 PM CDT TRANSFERRIN Add-On 05/12/2024 3:12 PM CDT IRON LEVEL Add-On 05/12/2024 3:12 PM CDT FERRITIN Add-On 05/12/2024 3:12 PM CDT DIFFERENTIAL Routine 05/12/2024 3:12 PM CDT .CBC Routine 05/12/2024 3:12 PM CDT HC PROCALCITONIN (PCT) Routine 3:12 PM CDT SEDIMENTATION RATE NON-AUTOMATED Routine 05/12/2024 3:12 PM CDT C REACTIVE PROTEIN Routine 05/12/2024 3:12 PM CDT PHOSPHORUS LEVEL Routine 05/12/2024 3:12 PM CDT MAGNESIUM LEVEL Routine 05/12/2024 3:12 PM CDT COMPREHENSIVE METABOLIC PANEL Routine 3:12 PM CDT TYPE AND SCREEN STAT 05/12/2024 3:12 PM CDT APTT Routine 05/12/2024 3:12 PM CDT PROTHROMBIN TIME Routine 05/12/2024 3:12 PM CDT COMPLETE BLOOD COUNT W/ DIFFERENTIAL Routine 05/12/2024 3:12 PM CDT BLOOD CULTURE Routine 05/12/2024 3:12 PM CDT BLOOD CULTURE Routine 05/12/2024 3:12 PM CDT DIFFERENTIAL Routine 05/04/2024 8:42 AM CDT Cholangiocarc inoma of biliary tract, NOS .CBC Routine 05/04/2024 8:42 AM CDT Cholangiocarc inoma of biliary tract, NOS GALECTIN 3 Routine 05/04/2024 8:42 AM CDT Cholangiocarc inoma of biliary tract, NOS CARCINOEMBRYONIC ANTIGEN Routine 024 8:42 AM CDT Cholangiocarc inoma of biliary tract, NOS CARBOHYDRATE ANTIGEN 19-9 Routine 2023 8:42 AM CDT Cholangiocarc inoma of biliary tract, NOS FREE THYROXINE Routine 05/04/2024 8:42 AM CDT Cholangiocarc inoma of biliary tract, NOS THYROID STIMULATING HORMONE Routine 04/17 8:42 AM CDT Cholangiocarc inoma of biliary tract, NOS COMPLETE BLOOD COUNT W/ DIFFERENTIAL Routine 05/04/2024 8:42 AM CDT Cholangiocarc inoma of biliary tract, NOS COMPREHENSIVE METABOLIC PANEL Routine 8:42 AM CDT Cholangiocarc inoma of biliary tract, NOS .CBC Routine 04/20/2024 8:22 AM CDT Cholangiocarc inoma of biliary tract, NOS COMPLETE BLOOD COUNT W/ DIFFERENTIAL Routine 04/20/2024 8:22 AM CDT Cholangiocarc inoma of biliary tract, NOS COMPREHENSIVE METABOLIC PANEL Routine 8:22 AM CDT Cholangiocarc inoma of biliary tract, NOS CT CHEST ABDOMEN PELVIS W WO CONTRAST Routine 04/06/2024 3:12 PM CDT Cholangiocarc inoma of biliary tract, NOS DIFFERENTIAL Routine 04/06/2024 6:46 AM CDT Cholangiocarc inoma of biliary tract, NOS .CBC Routine 04/06/2024 6:46 AM CDT Cholangiocarc inoma of biliary tract, NOS GALECTIN 3 Routine 04/06/2024 6:46 AM CDT Cholangiocarc inoma of biliary tract, NOS CARCINOEMBRYONIC ANTIGEN Routine 024 6:46 AM CDT Cholangiocarc inoma of biliary tract, NOS CARBOHYDRATE ANTIGEN 19-9 Routine 2023 6:46 AM CDT Cholangiocarc inoma of biliary tract, NOS FREE THYROXINE Routine 04/06/2024 6:46 AM CDT Cholangiocarc inoma of biliary tract, NOS THYROID STIMULATING HORMONE Routine 03/18 6:46 AM CDT Cholangiocarc inoma of biliary tract, NOS COMPLETE BLOOD COUNT W/ DIFFERENTIAL Routine 04/06/2024 6:46 AM CDT Cholangiocarc inoma of biliary tract, NOS COMPREHENSIVE METABOLIC PANEL Routine 6:46 AM CDT Cholangiocarc inoma of biliary tract, NOS DIFFERENTIAL Routine 03/31/2024 8:56 AM CDT Cholangiocarc inoma of biliary tract, NOS .CBC Routine 03/31/2024 8:56 AM CDT Cholangiocarc inoma of biliary tract, NOS CARBOHYDRATE ANTIGEN 19-9 Routine 2023 8:56 AM CDT Cholangiocarc inoma of biliary tract, NOS COMPREHENSIVE METABOLIC PANEL Routine 8:56 AM CDT Cholangiocarc inoma of biliary tract, NOS COMPLETE BLOOD COUNT W/ DIFFERENTIAL Routine 03/31/2024 8:56 AM CDT Cholangiocarc inoma of biliary tract, NOS .CBC Routine 03/09/2024 8:13 AM CDT Cholangiocarc inoma of biliary tract, NOS COMPLETE BLOOD COUNT W/ DIFFERENTIAL Routine 03/09/2024 8:13 AM CDT Cholangiocarc inoma of biliary tract, NOS COMPREHENSIVE METABOLIC PANEL Routine 8:13 AM CDT Cholangiocarc inoma of biliary tract, NOS HEMOGLOBIN A1C Add-On 02/24/2024 7:23 AM CDT Cholangiocarc inoma of biliary tract, NOS DIFFERENTIAL Routine 02/24/2024 7:23 AM CDT Cholangiocarc inoma of biliary tract, NOS .CBC Routine 02/24/2024 7:23 AM CDT Cholangiocarc inoma of biliary tract, NOS CARCINOEMBRYONIC ANTIGEN Routine 024 7:23 AM CDT Cholangiocarc inoma of biliary tract, NOS CARBOHYDRATE ANTIGEN 19-9 Routine 2023 7:23 AM CDT Cholangiocarc inoma of biliary tract, NOS FREE THYROXINE Routine 02/24/2024 7:23 AM CDT Cholangiocarc inoma of biliary tract, NOS THYROID STIMULATING HORMONE Routine 07/2024 7:23 AM CDT Cholangiocarc inoma of biliary tract, NOS COMPLETE BLOOD COUNT W/ DIFFERENTIAL Routine 02/24/2024 7:23 AM CDT Cholangiocarc inoma of biliary tract, NOS COMPREHENSIVE METABOLIC PANEL Routine 7:23 AM CDT Cholangiocarc inoma of biliary tract, NOS .CBC Routine 02/10/2024 8:30 AM CDT Cholangiocarc inoma of biliary tract, NOS COMPLETE BLOOD COUNT W/ DIFFERENTIAL Routine 02/10/2024 8:30 AM CDT Cholangiocarc inoma of biliary tract, NOS COMPREHENSIVE METABOLIC PANEL Routine 8:30 AM CDT Cholangiocarc inoma of biliary tract, NOS CT ABDOMEN PELVIS WO CONTRAST Routine 11:07 AM CDT Cholangiocarc inoma of biliary tract, NOS Right lower quadrant pain .CBC Routine 02/05/2024 9:27 AM CDT Cholangiocarc inoma of biliary tract, NOS Right lower quadrant pain COMPREHENSIVE METABOLIC PANEL Routine 9:27 AM CDT Cholangiocarc inoma of biliary tract, NOS Right lower quadrant pain COMPLETE BLOOD COUNT W/ DIFFERENTIAL Routine 02/05/2024 9:27 AM CDT Cholangiocarc inoma of biliary tract, NOS Right lower quadrant pain .CBC Routine 01/27/2024 9:16 AM CDT Cholangiocarc inoma of biliary tract, NOS TROPONIN T Routine [...] CARCINOEMBRYONIC ANTIGEN Routine 024 9:16 AM CDT Cholangiocarc inoma of biliary tract, NOS CARBOHYDRATE ANTIGEN 19-9 Routine 2023 9:16 AM CDT Cholangiocarc inoma of biliary tract, NOS FREE THYROXINE Routine 01/27/2024 9:16 AM CDT Cholangiocarc inoma of biliary tract, NOS THYROID STIMULATING HORMONE Routine 01/15 9:16 AM CDT Cholangiocarc inoma of biliary tract, NOS COMPLETE BLOOD COUNT W/ DIFFERENTIAL Routine 01/27/2024 9:16 AM CDT Cholangiocarc inoma of biliary tract, NOS COMPREHENSIVE METABOLIC PANEL Routine 9:16 AM CDT Cholangiocarc inoma of biliary tract, NOS VERIFY CATHETER TIP PLACEMENT Routine 2:18 PM CDT Cholangiocarc inoma of biliary tract, NOS XR CHEST 2 VW Routine 01/26/2024 1:30 PM CDT Cholangiocarc inoma of biliary tract, NOS EKG, 12-LEAD (SCHEDULED) Routine 01/26/2024 Immunotherapy for cancer .CBC Routine 01/19/2024 2:09 PM MINE SUPERVISOR Cholangiocarc inoma of biliary tract, NOS COMPREHENSIVE METABOLIC PANEL Routine 2:09 PM MINE SUPERVISOR Cholangiocarc inoma of biliary tract, NOS COMPLETE BLOOD COUNT W/ DIFFERENTIAL Routine 01/19/2024 2:09 PM MINE SUPERVISOR Cholangiocarc inoma of biliary tract, NOS MRI ABDOMEN & PELVIS W AND W O CONTRAST Routine 01/16/2024 6:53 PM MINE SUPERVISOR Cholangiocarc inoma of biliary tract, NOS .CBC Routine 01/14/2024 9:53 AM MINE SUPERVISOR Cholangiocarc inoma of biliary tract, NOS CARBOHYDRATE ANTIGEN 19-9 Routine 2023 9:53 AM MINE SUPERVISOR Cholangiocarc inoma of biliary tract, NOS COMPREHENSIVE METABOLIC PANEL Routine 9:53 AM MINE SUPERVISOR Cholangiocarc inoma of biliary tract, NOS COMPLETE BLOOD COUNT W/ DIFFERENTIAL Routine 01/14/2024 9:53 AM MINE SUPERVISOR Cholangiocarc inoma of biliary tract, NOS CT CHEST WO CONTRAST Routine 01/07/2024 4:49 PM MINE SUPERVISOR Cholangiocarc inoma of biliary tract, NOS POC CREATININE Routine 01/07/2024 3:57 PM MINE SUPERVISOR OSI INTERVENTIONAL Routine 12/19/2023 11:58 PM MINE SUPERVISOR Cancer OSI INTERVENTIONAL Routine 12/09/2023 11:57 PM MINE SUPERVISOR Cancer OSI CT CHEST Routine 12/09/2023 11:57 PM MINE SUPERVISOR Cancer OSI CT ABDOMEN AND PELVIS Routine 2023 11:57 PM MINE SUPERVISOR Cancer PATHOLOGY OUTSIDE INTERPRETATION Routine 12/09/2023 PATHOLOGY OUTSIDE INTERPRETATION Routine 12/09/2023 after 07/05/2023 Results * (ABNORMAL) Hemoglobin (07/05/2024 9:19 AM CDT) Pathologist [facility] Hemoglobin 7.0(L) 13.3 - 17.4 g/dL 07/05/2024 9:49 AM CDT [facility] Blood Peripheral blood specimen / Unknown Venipuncture / Unknown 07/05/2024 9:19 AM CDT 07/05/2024 9:27 AM CDT Yadiel Gomez MD LAB BLOOD ORD ERABLES [facility] Unless otherwise noted, all lab tests performed by: Division of Pathology and Laboratory Medicine [address] [place] [id number] * (ABNORMAL) POC Glucose Screen - Fingerstick (07/05/2024 8:38 AM CDT) Only the most recent of60 resultswithin the time period is included. Pathologist [facility] Glucose Screen 143(H) 70 - 99 mg/dL 07/05/2024 8:39 AM CDT [facility] POC Sample Type Capillary 07/05/2024 8:39 AM CDT [facility] Blood 07/05/2024 8:38 AM CDT 07/05/2024 8:39 AM CDT Narrative [facility] - 07/05/2024 8:39 AM CDT Capillary blood samples, e.g. obtained by fingerstick, may have inaccurate results in patients with decreased peripheral blood flow. Method description: All results are measured using Electrochemistry test methodology. The glucose in the sample mixes with the reagents on the test strip. The reaction produces an electric current. The amount of current produced is proportional to the glucose concentration in the blood. All POC Glucose screen test results, including critical values, must be interpreted and evaluated in the context of the patients' clinical findings. It is recommended to confirm any questionable test results by core lab methodology. Yadiel Gomez MD POCT ORDERABL ES - DEVICE [facility] Unless otherwise noted, all lab tests performed by: Division of Pathology and Laboratory Medicine [facility] [place] [address] * Transfuse RBC:Transfusion Date: 07/05/2024 (07/05/2024 6:35 AM CDT) Only the most recent of8 resultswithin the time period is included. Roxanna Rodriguez APRN BLOOD TRANSFUSION ORDERABLES * (ABNORMAL) .CBC (07/05/2024 1:49 AM CDT) Only the most recent of33 resultswithin the time period is included. White Blood Cell 2.0(L) 4.1 - 10.5 K/uL 07/05/2024 3:12 AM CDT [facility] Red Blood Cell 2.14(L) 4.30 - 6.04 M/uL 07/05/2024 3:12 AM CDT [facility] Hemoglobin 6.4(C) 13.3 - 17.4 g/dL 07/05/2024 3:12 AM CDT [facility] Comment:If specimen dilution is suspected, please consider re-collection. Specimen Clotted, please recollect. Hematocrit 20.1(L) 39.5 - 51.8 % 07/05/2024 3:12 AM CDT [facility] Mean Cell Volume 94 82 - 99 fL 07/05/2024 3:12 AM CDT [facility] Mean Cell Hemoglobin 29.9 26.6 - 33.2 pg 07/05/2024 3:12 AM CDT [facility] Mean Cell Hemoglobin Concentration 31.8 31.1 - 35.2 g/dL 07/05/2024 3:12 AM CDT [facility] RDW-SD 65.1(H) 37.5 - 49.7 fL 07/05/2024 3:12 AM CDT [facility] Red Cell Diameter Width 19.2(H) 11.6 - 15.5 % 07/05/2024 3:12 AM CDT [facility] Platelet 137(L) 160 - 397 K/uL 07/05/2024 3:12 AM CDT [facility] Mean Platelet Volume 9.8 9.1 - 12.6 fL 07/05/2024 3:12 AM CDT [facility] INRBC 0.0 0.0 - 0.1 /100 WBC 07/05/2024 3:12 AM CDT [facility] Comment: The INRBC (instrument NRBC) value reflects the enumeration of nucleated red blood cells contained in a 200uL sample of whole blood analyzed by the instrument. This value may differ from the NRBC value reported in a manual differential, which is based on a 100 cell differential. Neutrophil % 68.2 43.2 - 72.7 % 07/05/2024 3:12 AM CDT [facility] Lymphocyte % 23.7 16.8 - 46.2 % 07/05/2024 3:12 AM CDT [facility] Monocyte % 5.1 5.1 - 12.5 % 07/05/2024 3:12 AM CDT [facility] Eosinophil % 0.5 0.4 - 6.3 % 07/05/2024 3:12 AM CDT [facility] Basophil % 0.5 0.2 - 1.4 % 07/05/2024 3:12 AM T [facility] IGRE % 2.0(H) 0.1 - 1.5 % 07/05/2024 3:12 AM CDT [facility] Comment:The IGRE% includes M etamyelocytes, Myelocytes and Promyelocytes. Neutrophil Abs 1.35(L) 1.95 - 7.25 K/uL 07/05/2024 3:12 AM CDT [facility] Lymphocyte Abs 0.47(L) 1.01 - 3.24 K/uL 07/05/2024 3:12 AM CDT [facility] Monocyte Abs 0.10(L) 0.24 - 0.85 K/uL 07/05/2024 3:12 AM CDT [facility] Eosinophil Abs 0.01(L) 0.02 - 0.50 K/uL 07/05/2024 3:12 AM CDT [facility] Basophil Abs 0.01(L) 0.02 - 0.09 K/uL 07/05/2024 3:12 AM CDT [facility] IG Abs 0.04 0.01 - 0.12 K/uL 07/05/2024 3:12 AM CDT [facility] Blood Peripheral blood specimen / Unknown CVC Line / Unknown 07/05/2024 1:49 AM CDT 07/05/2024 1:56 AM CDT Roxanna Rodriguez ANNAMARIA LAB BLOOD ORDERAB LES [facility] Unless otherwise noted, all lab tests performed by: Division of Pathology and Laboratory Medicine [address] [place] [id number] * (ABNORMAL) Comprehensive Metabolic Panel (07/05/2024 1:49 AM CDT) Only the most recent of22 resultswithin the time period is included. Bilirubin Total <0.3 0.0 - 1.2 mg/dL 07/05/2024 2:36 AM CDT [facility] Comment:Indocyanine Green (I CG) may cause falsely elevated bilirubin results. Total and direct bilirubin must not be measured from samples containing indocyanine green. False elevation of total bilirubin can be seen in patients with IgG concentrations above 28 g/L. eGFR 55(L) >=60 mL/min/1. 73 sq. m 07/05/2024 2:36 AM CDT [facility] Comment: The eGFRcr is calculated [...] G2 fulfill criteria for CKD. Tot Protein 6.5 6.4 - 8.3 gm/dL 07/05/2024 2:36 AM CDT [facility] Calcium Level Total 8.0(L) 8.2 - 10.2 mg/dL 07/05/2024 2:36 AM CDT [facility] Alkaline Phosphatase 178(H) 40 - 129 U/L 07/05/2024 2:36 AM CDT [facility] Albumin Level 2.8(L) 3.5 - 5.2 gm/dL 07/05/2024 2:36 AM CDT [facility] AST 76(H) <=40 U/L 07/05/2024 2:36 AM CDT [facility] ALT 103(H) <=41 U/L 07/05/2024 2:36 AM CDT [facility] Sodium Level 141 136 - 145 mmol/L 07/05/2024 2:36 AM CDT [facility] Potassium Level 4.5 3.4 - 4.5 mmol/L 07/05/2024 2:36 AM CDT [facility] Chloride 113(H) 98 - 107 mmol/L 07/05/2024 2:36 AM CDT [facility] CO2 20(L) 22 - 29 mmol/L 07/05/2024 2:36 AM CDT [facility] Anion Gap 8 4 - 14 mmol/L 07/05/2024 2:36 AM CDT [facility] Creatinine 1.31(H) 0.67 - 1.17 mg/dL 07/05/2024 2:36 AM CDT [facility] BUN 23 6 - 23 mg/dL 07/05/2024 2:36 AM CDT [facility] Glucose Level 238(H) 70 - 99 mg/dL 07/05/2024 2:36 AM CDT [facility] Comment: Effective 7/27/16, the glucose reference intervals have been updated based on [place] [employer] guidelines (Standards of Medical Care in Diabetes 2016. Diabetes Care 2016; 39: S13-S22). Fasting blood glucose: Normal: 70-99 mg/dL Impaired fasting glucose (increased risk for diabetes or pre-diabetes): 100-125 mg/dL Diabetes mellitus: >/=126 mg/dL Random blood glucose: Normal: 70-199 mg/dL Note: Random glucose >100 mg/dL is associated with increased risk for diabetes. Blood Peripheral blood specimen / Unknown Venipuncture / Unknown 07/05/2024 1:49 AM CDT 07/05/2024 1:56 AM CDT Roxanna Rodriguez APRN LAB BLOOD ORDERAB LES [facility] Unless otherwise noted, all lab tests performed by: Division of Pathology and Laboratory Medicine [address] [place] [id number] * Type and Screen (07/05/2024 1:49 AM CDT) Only the most recent of6 resultswithin the time period is included. ABORh O POS 07/05/2024 1:30 AM CDT [facility] ABSC Negative 07/05/2024 1:30 AM CDT [facility] Clot Expiration 07/08/2024 23:59 07/05/2024 1:30 AM CDT [facility] Historical Record Check Complete 07/05/2024 1:30 AM CDT [facility] Blood Peripheral blood specimen / Unknown Venipuncture / Unknown 07/05/2024 1:49 AM CDT 07/05/2024 1:56 AM CDT Roxanna Rodriguez APRN BLOOD BANK TEST O RDERABLES [facility] [address] [place] [address] [id number] [place] [address] * (ABNORMAL) Phosphorus Level (07/05/2024 1:49 AM CDT) Only the most recent of18 resultswithin the time period is included. Phosphorus Level 1.7(L) 2.5 - 4.5 mg/dL 07/05/2024 2:36 AM CDT [facility] Blood Peripheral blood specimen / Unknown Venipuncture / Unknown 07/05/2024 1:49 AM CDT 07/05/2024 1:56 AM CDT Roxanna Baricuatro [employer] LAB BLOOD ORDERAB LES Performing Organization Address City/[facility] Co de Phone Number [facility] Unless otherwise noted, all lab tests performed by: Division of Pathology and Laboratory Medicine [address] [place] [id number] * Magnesium Level (07/05/2024 1:49 AM CDT) Only the most recent of19 resultswithin the time period is included. Magnesium Level 1.9 1.6 - 2.6 mg/dL 07/05/2024 2:36 AM CDT [facility] Blood Peripheral blood specimen / Unknown Venipuncture / Unknown 07/05/2024 1:49 AM CDT 07/05/2024 1:56 AM CDT Roxanna Baricuatro [employer] LAB BLOOD ORDERAB LES Performing Organization Address City/[facility] Co de Phone Number [facility] Unless otherwise noted, all lab tests performed by: Division of Pathology and Laboratory Medicine [address] [place] [id number] * US RENAL (07/04/2024 1:48 PM CDT) Anatomical Region Laterality Modality Abdomen Ultrasound 07/04/2024 3:33 PM CDT Impressions 07/04/2024 4:01 PM CDT 1. Mild right hydroureteronephrosis. No nephrolithiasis is seen on the right. Please correlate with patient history to see if the nephroureteral stent has been removed. 2. Nonobstructive left renal nephrolithiasis. No left hydronephrosis. 3. Post void bladder residual volume of 253.8 mL. This may be seen with urinary retention. Findings and recommendation discussed with Dr. Rasheed at 3:55 PM. ACTIONABLE ITEMS/RECOMMENDATIONS*: See impression *An Actionable Finding is a finding that may be unrelated to the original reason for imaging but potentially actionable, meaning further investigation may be necessary. The Actionable Findings Vigilance Unit (AFVU) assists medical providers with responding to additional radiologic findings that are unexpected and potentially actionable. I personally reviewed these image(s) along with the resident's/fellow's interpretations, certify that if a procedure was performed I was physically present, and agree with the final report. Narrative 07/04/2024 4:01 PM CDT Examination: US RENAL on 07/04/2024 1:48 PM. Clinical History: Cholangiocarcinoma. Status post right laser lithotripsy and stone extraction 06/19/2024 Indication: Flank / Back Pain. Comparison: CT abdomen and pelvis 05/13/2024 TECHNIQUE: The kidneys and bladder were evaluated with grayscale and color Doppler ultrasound. FINDINGS: Left Kidney: Length of 10.2 cm. Normal renal parenchymal echogenicity. Nonobstructive stone measures 0.6 cm in the lower interpolar region. Nonobstructive echogenic stone measures 0.3 cm in the lower pole. There are a few anechoic simple cysts, the largest of which measures 1.6 cm in the interpolar region. Right Kidney: Length of 10.8 cm. Normal parenchymal echogenicity. A few anechoic simple cysts are present, the largest of which measures up to 0.8 cm. Mild hydroureteronephrosis. Bladder: Post void volume of 253.8 mL. Procedure Note Jeremías Barkley MD - 07/04/2024 Examination: US RENAL on 07/04/2024 1:48 PM. Clinical History: Cholangiocarcinoma. Status post right laser lithotripsyand stone extraction 06/19/2024 Indication: Flank / Back Pain. Comparison: CT abdomen and pelvis 05/13/2024 TECHNIQUE: The kidneys and bladder were evaluated with grayscale andcolor Doppler ultrasound. FINDINGS: Left Kidney: Length of 10.2 cm. Normal renal parenchymal echogenicity.Nonobstructive stone measures 0.6 cm in the lower interpolar region.Nonobstructive echogenic stone measures 0.3 cm in the lower pole. Thereare a few anechoic simple cysts, the largest of which measures 1.6 cm inthe interpolar region. Right Kidney: Length of 10.8 cm. Normal parenchymal echogenicity. A fewanechoic simple cysts are present, the largest of which measures up to 0.8cm. Mild hydroureteronephrosis. Bladder: Post void volume of 253.8 mL. IMPRESSION: 1. Mild right hydroureteronephrosis. No nephrolithiasis is seen on theright. Please correlate with patient history to see if the nephroureteralstent has been removed. 2. Nonobstructive left renal nephrolithiasis. No left hydronephrosis. 3. Post void bladder residual volume of 253.8 mL. This may be seen withurinary retention. Findings and recommendation discussed with Dr. Rasheed at 3:55 PM. ACTIONABLE ITEMS/RECOMMENDATIONS*: See impression *An Actionable Finding is a finding that may be unrelated to the originalreason for imaging but potentially actionable, meaning furtherinvestigation may be necessary. The Actionable Findings Vigilance Unit(AFVU) assists medical providers with responding to additional radiologicfindings that are unexpected and potentially actionable. I personally reviewed these image(s) along with the resident's/fellow'sinterpretations, certify that if a procedure was performed I wasphysically present, and agree with the final report. Nery Rasheed MD [facility] ORDERABLES * Respiratory Multiplex PCR Panel, Nasopharyngeal Swab (07/04/2024 12:50 PM CDT) Adenovirus Not Detected Not Detected 07/04/2024 2:38 PM CDT [facility] Coronavirus 229E Not Detected Not Detected 07/04/2024 2:38 PM CDT [facility] Coronavirus HKU1 Not Detected Not Detected 07/04/2024 2:38 PM CDT [facility] Coronavirus NL63 Not Detected Not Detected 07/04/2024 2:38 PM CDT [facility] Coronavirus OC43 Not Detected Not Detected 07/04/2024 2:38 PM CDT [facility] COVID-19 (SARS-CoV-2) Not Detected Not Detected 07/04/2024 2:38 PM CDT [facility] Human Metapneumovirus Not Detected Not Detected 07/04/2024 2:38 PM CDT [facility] Human Rhinovirus/Enterov irus Not Detected Not Detected 07/04/2024 2:38 PM CDT [facility] Influenza A Not Detected Not Detected 07/04/2024 2:38 PM CDT [facility] Influenza A H1 Not Detected Not Detected 07/04/2024 2:38 PM CDT [facility] Influenza A H1 2009 Not Detected Not Detected 07/04/2024 2:38 PM CDT [facility] Influenza A H3 Not Detected Not Detected 07/04/2024 2:38 PM CDT [facility] Influenza B Not Detected Not Detected 07/04/2024 2:38 PM CDT [facility] Parainfluenza Virus 1 Not Detected Not Detected 07/04/2024 2:38 PM CDT [facility] Parainfluenza Virus 2 Not Detected Not Detected 07/04/2024 2:38 PM CDT [facility] Parainfluenza Virus 3 Not Detected Not Detected 07/04/2024 2:38 PM CDT [facility] Parainfluenza Virus 4 Not Detected Not Detected 07/04/2024 2:38 PM CDT [facility] Respiratory Syncytial Virus Not Detected Not Detected 07/04/2024 2:38 PM CDT [facility] Bordetella parapertussis Not Detected Not Detected 07/04/2024 2:38 PM CDT [facility] Bordetella pertussis Not Detected Not Detected 07/04/2024 2:38 PM CDT [facility] Chlamydophila pneumoniae Not Detected Not Detected 07/04/2024 2:38 PM CDT [facility] Mycoplasma pneumoniae Not Detected Not Detected 07/04/2024 2:38 PM CDT [facility] Swab Nasopharyngeal structure / Unknown Non-blood Collection / Unknown 07/04/2024 12:50 PM CDT 07/04/2024 1:05 PM CDT Narrative [facility] - 07/04/2024 2:38 PM CDT The assay is a qualitative multiplex PCR assay to aid in the diagnosis of respiratory pathogens through simultaneous qualitative detection and identification of multiple pathogens directly from nasopharyngeal swabs (OBSTETRICS GYNECOLOGY MD) from individuals with respiratory symptoms. Testing is performed using the KnodiumArray Respiratory Panel 2.1 (RP2.1) on the Viadeo System. The following organisms are identified using the Medipacs RP 2.1 Panel: Adenovirus, Human Coronavirus (229E, HKU1, NL63, and OC43), Severe Acute Respiratory Syndrome Coronavirus 2 (SARS-CoV-2), Human Metapneumovirus, Human Rhinovirus/Enterovirus, Influenza A, including subtypes (H1, H3 and H1-2009), Influenza B, Parainfluenza Virus (1, 2, 3, and 4), Respiratory Syncytial Virus, Bordetella parapertussis, Bordetella pertussis, Chlamydia pneumoniae, and Mycoplasma pneumoniae A result of Not Detected" does not exclude the possibility of the presence of one or more of the pathogens at or below the detection limits of this assay nor does exclude the possibility of pathogens not detected by this panel. Non-infectious causes of respiratory symptoms should also be considered in such cases. Internal controls are used to monitor all stages of the testing process including amplification inhibition. If inhibition is detected, testing is repeated and if inhibition is confirmed the specimen is resulted as "Invalid". When an "Invalid" result occurs, it is recommended to wait 3 days before submitting a new specimen for testing if clinically indicated. This is an FDA-approved assay and its performance characteristics were verified by the microbiology laboratory at the [facility] (CLIA Accreditation # [id number] and CAP Accreditation # [id number]). Results must be interpreted within the context of all relevant clinical and laboratory findings. Assay should not be used for monitoring response to therapy. Nery Rasheed MD MICROBIOLOGY - [facility] ORDERABLES [facility] Unless otherwise noted, all lab tests performed by: Division of Pathology and Laboratory Medicine [address] [place] [id number] * Urinalysis w/Microscopic if Indicated (07/04/2024 12:16 PM CDT) Only the most recent of2 resultswithin the time period is included. Urine Appearance Clear Clear 07/04/20 12:27 PM CDT [facility] Urine Color Colorless Colorless, Straw, Yellow, Dark Yellow, Straw-Yellow 07/04/2024 12:27 PM CDT [facility] Urine Specific [place] 1.008 1.003 - 1.035 07/04/2024 12:27 PM CDT [facility] Urine pH 6.0 5.0 - 8.0 07/04/2024 12:27 PM CDT [facility] Urine Glucose Negative Negative mg/dL 07/04/2024 12:27 PM CDT [facility] Urine Ketones Negative Negative mg/dL 07/04/2024 12:27 PM CDT [facility] Urine Blood Negative Negative 07/04/2024 12:27 PM CDT [facility] Urine Protein Negative Negative mg/dL 07/04/2024 12:27 PM CDT [facility] Urine Bilirubin Negative Negative 12:27 PM CDT [facility] Urine Urobilinogen Negative Negative 07/04/2024 12:27 PM CDT [facility] Urine Nitrite Negative Negative 07/04/2024 12:27 PM CDT [facility] Urine Leukocyte Esterase Negative Negative 07/04/2024 12:27 PM CDT [facility] Urine Voided urine specimen / Unknown Non-blood Collection / Unknown 07/04/2024 12:16 PM CDT 07/04/2024 12:23 PM CDT Narrative [facility] - 07/04/2024 12:27 PM CDT Some reporting parameters within the Urinalysis test have changed due to the implementation of new instrumentation in the [facility] [place], allowing greater sensitivity of measurement. Urinalysis results reported by the [facility] using existing instrumentation, as well as Urinalysis testing performed manually or by back-up methodology at the [place], will remain relatively unchanged. New reporting parameters and units will now be reported for all campuses. No microscopic exam performed; physiochemical findings are negative Jose Alfredo Boss MD URINE ORDERABLES [facility] Unless otherwise noted, all lab tests performed by: Division of Pathology and Laboratory Medicine [address] [place] [id number] * (ABNORMAL) POC VBG+LAC (07/04/2024 12:11 PM CDT) Only the most recent of2 resultswithin the time period is included. POC VB pH. 7.320 7.310 - 7.410 07/04/2024 12:16 PM CDT [facility] POC VB pCO2. 37.1(L) 41.0 - 51.0 mmHg 07/04/2024 12:16 PM CDT [facility] POC VB pO2. 35 mmHg 07/04/2024 12:16 PM CDT [facility] POC VB TCO2 20(L) 24 - 29 mmol/L 07/04/2024 12:16 PM CDT [facility] POC VB Bicarb 19.1(L) 23.0 - 28.0 mmol/L 07/04/2024 12:16 PM CDT [facility] POC VB Base Excess -6(L) -2 - 3 mmol/L 07/04/2024 12:16 PM CDT [facility] POC VB O2 Sat 63 % 07/04/2024 12:16 PM CDT [facility] POC VB LAC 0.86(L) 0.90 - 1.70 mmol/L 07/04/2024 12:16 PM CDT [facility] POC FiO2 07/04/2024 12:16 PM CDT [facility] POC Sample Type Venous 07/04/2024 12:16 PM CDT [facility] Blood 07/04/2024 12:1 1 PM CDT 07/04/2024 12:16 PM CDT Narrative [facility] - 07/04/2024 12:16 PM CDT Method description: The i-STAT is an analyzer [...] measure analyte concentration by an electrochemical assay. Nery Rasheed MD POCT ORDERABLES - DE VICE Performing Organization Address [facility] Co de Phone Number [facility] Unless otherwise noted, all lab tests performed by: Division of Pathology and Laboratory Medicine [address] [place] [id number] * (ABNORMAL) Procalcitonin (PCT) (07/04/2024 12:04 PM CDT) Only the most recent of2 resultswithin the time period is included. Procalcitonin 1.48(H) <=0.08 ng/mL 07/04/2024 1:00 PM CDT [facility] Blood Venous blood specimen / Unknown CVC Line / Unknown 07/04/2024 12:04 PM CDT 07/04/2024 12:17 PM CDT Narrative [facility] - 07/04/2024 1:00 PM CDT Procalcitonin > 2.00 ng/mL: Procalcitonin levels above 2.00 ng/mL are highly suggestive of a high risk for systematic bacterial infection/ severe sepsis and/or septic shock. Procalcitonin < 0.50 ng/mL: Procalcitonin levels below 0.50 ng/mL are at low risk for progression to severe sepsis and/ or septic shock. Procalcitonin (ProCT) between 0.15 and 2.0 ng/mL do not exclude infection, because localized infections (without systemic signs) may be associated with such low levels. Results greater than 400 ng/mL may not be reliable due to the matrix effect with extended dilution as it exceeds the automation qtp tester's recommended limit. Caution should be exercised when interpreting such values and done in conjunction with clinical context. Jose Alfredo Boss MD LAB BLOOD ORDERABLES Performing Organization Address [facility] Co de Phone Number [facility] Unless otherwise noted, all lab tests performed by: Division of Pathology and Laboratory Medicine [address] [place] [id number] * Fractionated Bilirubin (07/04/2024 12:04 PM CDT) Bilirubin Direct <0.2 0.0 - 0.3 mg/dL 07/04/2024 1:00 PM CDT [facility] Comment:Indocyanine Green (I CG) may cause falsely elevated bilirubin results. Total and direct bilirubin must not be measured from samples containing indocyanine green. Bilirubin Indirect 2023 1:00 PM CDT [facility] Comment:Unable to calculate Indirect Bilirubin result due to some parameters are outside reportable range Bilirubin Total 0.3 0.0 - 1.2 mg/dL 07/04/2024 1:00 PM CDT [facility] Comment: Indocyanine Green (ICG) may cause falsely elevated bilirubin results. Total and direct bilirubin must not be measured from samples containing indocyanine green. False elevation of total bilirubin can be seen in patients with IgG concentrations above 28 g/L. Indocyanine Green (ICG) may cause falsely elevated bilirubin results. Total and direct bilirubin must not be measured from samples containing indocyanine green. False elevation of total bilirubin can be seen in patients with IgG concentrations above 28 g/L. Blood Venous blood specimen / Unknown CVC Line / Unknown 07/04/2024 12:04 PM CDT 07/04/2024 12:17 PM CDT Jose Alfredo Boss MD LAB BLOOD ORDERABLES [facility] Unless otherwise noted, all lab tests performed by: Division of Pathology and Laboratory Medicine [address] [place] [id number] * CRP (C-reactive protein) (07/04/2024 12:04 PM CDT) Only the most recent of2 resultswithin the time period is included. Pathologist [facility] CRP (C Reactive Protein) 69.25 mg/L 07/04/2024 1:12 PM CDT [facility] Blood Venous blood specimen / Unknown CVC Line / Unknown 07/04/2024 12:04 PM CDT 07/04/2024 12:17 PM CDT Narrative [facility] - 07/04/2024 1:12 PM CDT Adult Reference ranges for HS CRP assay are as follows: Reference ranges when used to assess cardiac risk: <1.00 mg/L Low cardiovascular risk 1.00-3.00 mg/L Average cardiovascular risk >3.00 mg/L High cardiovascular risk Reference ranges when used to assess inflammatory responses: Less than or equal to 10.00 mg/L. Jose Alfredo Boss MD LAB BLOOD ORDERABLES Performing Organization Address [facility] de Phone Number [facility] Unless otherwise noted, all lab tests performed by: Division of Pathology and Laboratory Medicine [address] [place] [id number] * (ABNORMAL) LDH (07/04/2024 12:04 PM CDT) LDH 255(H) 135 - 225 U/L 07/04/2024 12:53 PM CDT [facility] Blood Venous blood specimen / Unknown CVC Line / Unknown 07/04/2024 12:04 PM CDT 07/04/2024 12:17 PM CDT Narrative [facility] - 07/04/2024 12:53 PM CDT Results greater than 1651 U/L may not be reliable due to matrix effect with extended dilution as it exceeds the automation qtp tester's recommended limit. Caution should be exercised when interpreting such values and done in conjunction with clinical context. Jose Alfredo Boss MD LAB BLOOD ORDERABLES Performing Organization Address [facility] Co de Phone Number [facility] Unless otherwise noted, all lab tests performed by: Division of Pathology and Laboratory Medicine [address] [place] [id number] * OSI CT CHEST ABDOMEN PELVIS (07/04/2024 9:18 AM CDT) Narrative Systemgenerated, Documentation - 07/05/2024 9:18 AM CDT Study acquired at another institution. For comparison only. No [facility] interpretation requested or available. Nery Rasheed MD IMG OUTSIDE IMAGE OR DERABLES * OSI Chest (07/04/2024 9:17 AM CDT) Narrative Systemgenerated, Documentation - 07/05/2024 9:17 AM CDT Study acquired at another institution. For comparison only. No [facility] originated interpretation requested or available. Nery Rasheed MD IMG OUTSIDE IMAGE OR DERABLES * (ABNORMAL) CA 19-9 (06/29/2024 9:49 AM CDT) Only the most recent of8 resultswithin the time period is included. CA 19-9 39.6(H) <=35.0 U/mL 06/29/2024 10:24 AM CDT [facility] Blood Venous blood specimen / Unknown CVC Line / Unknown 06/29/2024 9:49 AM CDT 06/29/2024 9:52 AM CDT Narrative [facility] - 06/29/2024 10:24 AM CDT Results greater than 9500 U/mL may not be reliable due to matrix effect with extended dilution as it exceeds the automation qtp tester's recommended limit. Caution should be exercised when interpreting such values and done in conjunction with clinical context. This test is measured by electrochemiluminescence immunoassay on Parker Kat immunoassay analyzers. Results obtained in different methods are not interchangeable. Marbella GRAJEDA LAB BLOOD ORDERABLES [facility] [address] [facility] [address] [facility], [facility] [address] [place] [address] * (ABNORMAL) Differential (06/29/2024 9:49 AM CDT) Only the most recent of24 resultswithin the time period is included. Total Cells 100 06/29/2024 10:31 AM CDT [facility] Manual Neutrophil % 51.0 43.2 - 72.7 % 06/29/2024 10:31 AM CDT [facility] Comment:The Neutrophil count includes Bands. Manual Lymphocyte % 21.0 16.8 - 46.2 % 06/29/2024 10:31 AM CDT [facility] Manual Monocyte % 27.0(H) 5.1 - 12.5 % 06/29/2024 10:31 AM [facility] Manual Eosinophil % 1.0 0.4 - 6.3 % 06/29/2024 10:31 AM [facility] Metamyelocyte % 10:31 AM [facility] Comment:The Metamyelocyte co unt includes Myelocytes. Manual Neutrophil Abs 3.11 1.95 - 7.25 K/uL 06/29/2024 10:31 AM [facility] Manual Lymphocyte Abs 1.28 1.01 - 3.24 K/uL 06/29/2024 10:31 AM [facility] Manual Monocyte Abs 1.65(H) 0.24 - 0.85 K/uL 06/29/2024 10:31 AM [facility] Manual Eosinophil Abs 0.06 0.02 - 0.50 K/uL 06/29/2024 10:31 AM [facility] RBC Morphology NORMAL 06/29/2024 10:31 AM [facility] Blood Venous blood specimen / Unknown CVC Line / Unknown 06/29/2024 9:49 AM CDT 06/29/2024 9:52 AM CDT Marbella GRAJEDA LAB BLOOD ORDERABLES Performing Organization Address City/[facility]/ZIP Co de Phone Number [place] [phone] [place] [address] * (ABNORMAL) TSH (06/29/2024 9:49 AM CDT) Only the most recent of7 resultswithin the time period is included. Thyroid Stimulating Hormone 47.29(H) 0.27 - 4.20 mcunit/mL 06/29/2024 10:24 AM [facility] Blood Venous blood specimen / Unknown CVC Line / Unknown 06/29/2024 9:49 AM CDT 06/29/2024 9:52 AM CDT Marbella GRAJEDA LAB BLOOD ORDERABLES [address] [address] * (ABNORMAL) Free T4 (06/29/2024 9:49 AM CDT) Only the most recent of7 resultswithin the time period is included. T4 (Thyroxine) Free 0.82(L) 0.92 - 1.68 ng/dL 06/29/2024 10:24 AM CDT [facility] Blood Venous blood specimen / Unknown CVC Line / Unknown 06/29/2024 9:49 AM CDT 06/29/2024 9:52 AM CDT Marbella GRAJEDA LAB BLOOD ORDERABLES Performing Organization Address City/[facility]/ZIP Co de Phone Number [address] [id number] * CEA (06/29/2024 9:49 AM CDT) Only the most recent of6 resultswithin the time period is included. Carcinoembryonic Antigen 3.6 <=3.8 ng/mL 06/29/2024 10:24 AM CDT [facility] Blood Venous blood specimen / Unknown CVC Line / Unknown 06/29/2024 9:49 AM CDT 06/29/2024 9:52 AM CDT [facility] - 06/29/2024 10:24 AM CDT Reference Ranges (age 20-69 years): Non-smoker: 0.0 - 3.8 ng/mL Smoker: 0.0 - 5.5 ng/mL This test is measured by electrochemiluminescence immunoassay on Parker Kat immunoassay analyzers. Results obtained in different methods are not interchangeable. Marbella GRAJEDA LAB BLOOD ORDERABLES Performing Organization Address City/[facility]/ZIP Co de Phone Number [address] [address] * [place] Portable Fluoroscopy (C-Arm) (CPT 56793) (06/19/2024 11:57 AM CDT) Narrative Systemgenerated, Documentation - 06/19/2024 11:57 AM CDT This procedure requires no interpretation from the radiologist. Al Quick IV, MD IMG FLUOROSCOPY ORDERABLES * Pathology Surgical Interpretation (06/19/2024 8:42 AM CDT) Submitted Clinical History Calculus of kidney and ureter [N20.2] 06/22/2024 6:17 AM CDT [facility] Diagnosis A: Stone(s), right ureter, gross only, right ureteral stone for stone analysis: Calculi. Specimen submitted for chemical analysis. PT 06/22/2024 6:17 AM CDT [facility] Gross Description A: Stone(s), right ureter, gross only, right ureteral stone for stone analysis---or#37: Consists of multiple fragments of luque-brown, indurated calculi (0.3 x 0.3 x 0.2 cm to 0.5 x 0.5 x 0.4 cm). The specimen is sent for stone analysis. Gross examination only. EF 06/22/2024 6:17 AM CDT [facility] Biomarker Block(s) Tumor block: N/A Normal block: N/A 06/22/2024 6:17 AM CDT [facility] Disclaimer "Some tests reported here may have been developed and performance characteristics determined by [facility] Pathology and Laboratory Medicine. These tests have not been specifically cleared or approved by the U.S. Food and Drug Administration. If applicable, controls were reviewed and showed appropriate reactivity." 06/22/2024 6:17 AM CDT [facility] Stone (Stone(s), Right Ureter, Gross Only) 06/19/2024 8:42 AM CDT 06/21/2024 7:38 AM CDT Al Quick IV, MD LAB PATHOLOGY OR DERABLES Performing Organization Address City/State/[facility] Co de Phone Number [facility] [place] [address], [place] * Stone Analysis Kidney (06/19/2024 8:42 AM CDT) Stn Anl Kidney DNR 07/01/2024 2:00 PM CDT [facility] Stn Anl Kidney Source Right Ureter 07/01/2024 2:00 PM CDT [facility] Stn Anl Kidney Interp SEE COMMENTS 07/01/2024 2:00 PM CDT [facility] Comment:RESULT: 100% Calcium oxalate monohydrate. Result Comment SEE COMMENTS 07/01/2024 2:00 PM CDT [facility] Comment: For stones containing calcium oxalate, calcium phosphate, and/or uric acid, a 24 hr urinary supersaturation test may help detect underlying risk factors for this type of stone formation and provide guidance for a stone prevention strategy. ADDITIONAL INFORMATION This test was developed and its performance characteristics determined by [facility] in a manner consistent with CLIA requirements. This test has not been cleared or approved by the U.S. Food and Drug Administration. Test Performed by: [facility] [place] [address] Furnace Maintenance: Mau Thakkar Ph.D.; CLIA# [id number] Other (Renal Stone) Non-blood Collection / Unknown 06/19/2024 8:42 AM CDT 06/21/2024 10:24 AM CDT Al Quick IV, MD URINE ORDERABLES [facility] * MDA CP PRMYEF (06/15/2024 7:31 AM CDT) Only the most recent of14 resultswithin the time period is included. Blood Venous blood specimen / Unknown CVC Line / Unknown 06/15/2024 7:31 AM CDT 06/15/2024 7:40 AM CDT Marbella GRAJEDA LAB BLOOD ORDERABLES [facility] [address], [address] [address] [place] [address] * Implanted Port Removal (06/07/2024 10:15 AM CDT) Anatomical Region Laterality Modality Ultrasound Narrative 06/07/2024 10:18 AM CDT Title of Procedure: Port Removal Date/Time: 06/07/24 Proceduralist Type: Advanced Practice Provider Proceduralist: Kathie Mina, ANNAMARIA,SHADP Ordered By: NICCI Pemberton Procedure Location: Outpatient Procedure Tool Drawing Checker present: no Energy Efficiency Engineer: no 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 Informed consent obtained prior to procedure, the risks, benefits, and alternative discussed with patient/designated sales representative uniforms. Pre-procedure the patient was VAP pre-procedure patient condition: alert. Cautery Device: Utilized during procedure and dispersive pad placed on patient for grounding Time out: universal protocol time out performed and documented. Anesthesia Anesthesia: VAP anesthesia: local infiltration and see MAR for details Local anesthetic: Lidocaine 1% without Epinephrine Anesthetic total (ml): 13 Sedation Patient Sedated?: No Anxiolysis: No Patient's vitals were monitored during procedure. Procedure Site preparation: Hand hygiene performed prior to port removal by all persons performing/assisting with procedure. Site prepped and cleaned with aseptic technique (Sterile devices, and equipment used. Doors closed and traffic minimized during procedure). Port site prepped with Chlorhexidine Gluconate (Standard). Skin prep agent completely dried prior to procedure according to automation qtp tester guidelines. Maximum sterile barriers were used- sterile gloves, sterile gown, cap, mask and head to toe sterile cover. Port removal tray used. The patient was placed in a Flat/supine, Head Turned to Side, and Trendelenburg Location: right internal jugular vein The port site was anesthetized via subcutaneous needle. Incision made with scalpel. Electrocautery used to minimally dissect tissue. Blunt dissection with curved hemostats used to free tissue. Retaining sutures securing port present and removed yes Catheter removed intact? yes Hemostasis achieved? yes Wound Irrigated with sterile saline? yes Catheter tract sutured? no 5 minute pressure hold Wound sutured and all layers approximated yes Suture type: vicryl and monocryl Suture size: 3-0 and 4-[address]? yes Dermabond used? no Sterile dressing applied? yes Estimated blood loss was Minimal Specimen Removed: No Post Procedure Trendelenburg/flat position discontinued. Dressing applied. Complications: no immediate complication Patient Condition: patient tolerated the procedure well with no immediate complications, patient does not report adverse symptoms, patient remained hemodynamically stable throughout the procedure, and patient is warm and well perfused Responsiveness: alert, awake, and comfortable Patient Disposition: discharge to home with instructions. educated about post-op care. Comments Scrub: Elvia Blount MA Safe Technician: David Simmons RN Marbella GRAJEAD IMG VAP ORDERABLES * X-ray Chest 1 View Portable (06/07/2024 9:19 AM CDT) Anatomical Region Laterality Modality Chest Digital Radiogra phy 06/07/2024 9:20 AM CDT Impressions 06/07/2024 9:21 AM CDT 1. Findings, Impression, and/or Recommendations as above. ACTIONABLE ITEMS/RECOMMENDATIONS*: None. *An Actionable Finding is a finding that may be unrelated to the original reason for imaging but potentially actionable, meaning further investigation may be necessary. The Actionable Findings Vigilance Unit (AFVU) assists medical providers with responding to additional radiologic findings that are unexpected and potentially actionable. Narrative 06/07/2024 9:21 AM CDT FULL RESULT: Examination: XR CHEST 1 VW PORTABLE on 06/07/2024 9:19 AM. Clinical History: Encounter for adjustment and management of vascular access device Indication: Confirm PICC placement, COVID-19 Not Suspected Comparison: 05/15/2024 Technique: Frontal radiograph of the chest FINDINGS: Support Apparatus: Right chest wall port tip upper SVC. Interval placement right PICC tip lower SVC. Lungs/Pleura/Mediastinum: Cardiomediastinal silhouette/sternotomy changes stable. No pneumothorax. Mild elevation right hemidiaphragm and mild basilar opacities noted. Procedure Note Tru Cobb MD - 06/07/2024 FULL RESULT: Examination: XR CHEST 1 VW PORTABLE on 06/07/2024 9:19 AM. Clinical History: Encounter for adjustment and management of vascularaccess device Indication: Confirm PICC placement, COVID-19 Not Suspected Comparison: 05/15/2024 Technique: Frontal radiograph of the chest FINDINGS: Support Apparatus: Right chest wall port tip upper SVC. Interval placementright PICC tip lower SVC. Lungs/Pleura/Mediastinum: Cardiomediastinal silhouette/sternotomy changesstable. No pneumothorax. Mild elevation right hemidiaphragm and mildbasilar opacities noted. IMPRESSION: 1. Findings, Impression, and/or Recommendations as above. ACTIONABLE ITEMS/RECOMMENDATIONS*: None. *An Actionable Finding is a finding that may be unrelated to the originalreason for imaging but potentially actionable, meaning furtherinvestigation may be necessary. The Actionable Findings Vigilance Unit(AFVU) assists medical providers with responding to additional radiologicfindings that are unexpected and potentially actionable. Sia GRAJEDA IMG DIAGNOSTIC IMAGI NG ORDERABLES * Insert Vascular Access Device PICC (06/07/2024 8:38 AM CDT) Anatomical Region Laterality Modality Ultrasound Narrative 06/07/2024 8:40 AM CDT Date of Procedure: 06/07/24 Title of Procedure: Percutaneous Image-Guided PICC Insertion Proceduralist: Clyde Benavidez RN Ordered By: NCICI Pemberton Procedure Location: Outpatient Procedure Tool Drawing Checker Present: Yes David Simmons RN Pre Procedure Diagnosis: Cholangiocarcinoma of biliary tract, NOS; Encounter for adjustment and management of vascular access device Post Procedure Diagnosis: Unchanged Indication: Chemotherapy Infusion and Vascular Access. Title of Procedure: Percutaneous Image-Guided Non-Tunneled PICC line insertion Pre Procedure Evaluation: Patient examined pre-procedure and assessment (including allergies, labs, imaging, history and physical exam) performed. Pre-procedure the patient was MDA VAP pre-procdure patient condition: alert. Informed consent obtained prior to procedure, the risks, benefits, and alternative dicussed with patient/designated sales representative uniforms. Time out: universal protocol time out performed and documented. Anesthesia: MDA VAP anesthesia: local infiltration Local Anesthetic: MDA VAP local anes (PICC): Lidocaine 1% without Epinephrine Sedation/Anxiolysis: Local anesthesia only (see MAR) Sedation: Not applicable Vital signs: Vital signs monitored during procedure/sedation Procedure in Detail: Site preparation: PICC catheter insertion tray used. Patient placed in Flat/supine position. The insertion site was anesthetized with lidocaine 1% without epinephrine via subcutaneous needle . A high level disinfected ultrasound probe with sterile cover was used for guidance. Venous access obtained., Venous access obtained using the micropuncture needle., and Non-pulsatile dark red blood obtained. A permanent record of the ultrasound-guided vessel puncture image has been stored. Modified Seldinger Technique. MicroIntroducer with sheath inserted. Dilator with peel away sheath inserted over guidewire. Guidewire removed, examined, and found to be intact. Drip test performed to confirm venous placement. A new central venous catheter was inserted successfully with good flow and blood return in all lumens. Number of attempts: 1 Vein Location/Laterality: right basilic Catheter Lumen: double lumen Catheter size: 4Fr Catheter Type: power rated Catheter Internal Length:40 cm Catheter External Length:0 cm Catheter Trim Length:40 cm Estimated Blood Loss: Minimal Catheter Vein Ratio: less than 45% Post Procedure: Each lumen evacuated of air and flushed with sterile saline. Post procedure site: suture/secured in place, the site cleaned and sterile transparent dressing applied with biopatch, and the dressing labeled with date, time, and initial Assessment: Catheter re-assessed and blood returned through all lumens and patent to flush. Complications: no immediate complication Patient Condition: patient tolerated the procedure well with no immediate complications Responsiveness: alert, awake, and comfortable Patient Disposition: discharge to home with instructions and printed education material provided to patient/caregiver Midarm circumference:29 cm Forearm circumference:27 cm Additional Comments: None Marbella JO VAP ORDERABLES * Tip Verification Central Vascular Access Device (06/07/2024 7:00 AM CDT) Only the most recent of2 resultswithin the time period is included. Narrative Clyde Benavidez RN - 06/07/2024 7:00 AM CDT Clyde Benavidez RN 06/19/2024 2:18 AM Central Vascular Access Device Tip Verification Performed by: Clyde Benavidez RN Authorized by: Marbella Pereira PA CVAD Properties Date device placed: 06/07/2024 Placed by: Clyde benavidez RN Device placement location: [facility] Catheter Type: PICC Catheter lumen: Double lumen Vein location: Basilic Laterality: Right Tip Verification Properties Diagnostic image available: Chest xray Written diagnostic report available: Yes Tip location per report: Superior vena cava (per radiologist report, Tru Cobb MD) Tip in good position and cleared for infusion Marbella GRAJEDA IV THERAPY ORDERABLE S * (ABNORMAL) [facility] CP PLATELET COUNT (06/07/2024 6:45 AM CDT) Pathologist [facility] Platelet 117(L) 160 - 397 K/uL 06/07/2024 6:55 AM CDT [facility] Mean Platelet Volume 9.2 9.1 - 12.6 fL 06/07/2024 6:55 AM CDT [facility] Blood Peripheral blood specimen / Unknown Venipuncture / Unknown 06/07/2024 6:45 AM CDT 06/07/2024 6:47 AM CDT Marbella GRAJEDA LAB BLOOD ORDERABLES [facility] Unless otherwise noted, all lab tests performed by: Division of Pathology and Laboratory Medicine [address] [place] [id number] * PT with INR (06/07/2024 6:45 AM CDT) Only the most recent of3 resultswithin the time period is included. Pathologist [facility] Prothrombin Time 13.5 11.9 - 14.5 second(s) 06/07/2024 7:34 AM CDT [facility] International Normalization Ratio 1.04 0.87 - 1.12 06/07/2024 7:34 AM CDT [facility] Blood Peripheral blood specimen / Unknown Venipuncture / Unknown 06/07/2024 6:45 AM CDT 06/07/2024 6:47 AM CDT Marbella GRAJEDA LAB BLOOD ORDERABLES [facility] Unless otherwise noted, all lab tests performed by: Division of Pathology and Laboratory Medicine [address] [place] [id number] * (ABNORMAL) Galectin-3 (06/02/2024 10:20 AM CDT) Only the most recent of3 resultswithin the time period is included. Pathologist [facility] Galectin3 S-[place] 22.2(H) <=22.1 ng/mL 06/08/2024 10:53 AM CDT [facility] Comment: Elevated galectin-3 is associated with greater cardiovascular risk and poor outcome in heart failure patients: </= 17.8 ng/mL (low risk); 17.9-25.9 ng/mL (intermediate risk); >25.9 ng/mL (high risk). Results should be interpreted in the context of the individual patient presentation. Test Performed by: [place] [address] Furnace Maintenance: Mau Thakkar Ph.D.; CLIA# [id number] Blood Peripheral blood specimen / Unknown Venipuncture / Unknown 06/02/2024 10:20 AM CDT 06/02/2024 10:20 AM CDT Marbella GRAJEDA LAB BLOOD ORDERABLES [facility] * (ABNORMAL) Hemogram (05/28/2024 5:38 PM CDT) Only the most recent of3 resultswithin the time period is included. White Blood Cell 6.8 4.1 - 10.5 K/uL 05/28/2024 6:38 PM CDT [facility] Red Blood Cell 3.41(L) 4.30 - 6.04 M/uL 05/28/2024 6:38 PM CDT [facility] Hemoglobin 10.1(L) 13.3 - 17.4 g/dL 05/28/2024 6:38 PM CDT [facility] Hematocrit 31.1(L) 39.5 - 51.8 % 05/28/2024 6:38 PM CDT [facility] Mean Cell Volume 91 82 - 99 fL 05/28/2024 6:38 PM CDT [facility] Mean Cell Hemoglobin 29.6 26.6 - 33.2 pg 05/28/2024 6:38 PM CDT [facility] Mean Cell Hemoglobin Concentration 32.5 31.1 - 35.2 g/dL 05/28/2024 6:38 PM CDT [facility] RDW-SD 72.4(H) 37.5 - 49.7 fL 05/28/2024 6:38 PM CDT [facility] Red Cell Diameter Width 22.2(H) 11.6 - 15.5 % 05/28/2024 6:38 PM CDT [facility] Platelet 237 160 - 397 K/uL 05/28/2024 6:38 PM CDT [facility] Mean Platelet Volume 10.1 9.1 - 12.6 fL 05/28/2024 6:38 PM CDT [facility] INRBC 0.0 0.0 - 0.1 /100 WBC 05/28/2024 6:38 PM CDT [facility] Comment: The INRBC (instrument NRBC) value reflects the enumeration of nucleated red blood cells contained in a 200uL sample of whole blood analyzed by the instrument. This value may differ from the NRBC value reported in a manual differential, which is based on a 100 cell differential. Blood Peripheral blood specimen / Unknown Venipuncture / Unknown 05/28/2024 5:38 PM CDT 05/28/2024 5:45 PM CDT Graeme Suarez MD LAB BLOOD ORDERABLES [facility] Unless otherwise noted, all lab tests performed by: Division of Pathology and Laboratory Medicine [address] [place] [id number] * Folate, RBC (05/26/2024 5:34 AM CDT) Folate, RBC 814 >280 ng/mL RBC 05/27/2024 5:10 PM CDT [facility] ([facility]) Blood Peripheral blood specimen / Unknown Venipuncture / Unknown 05/26/2024 5:34 AM CDT 05/26/2024 6:12 AM CDT Narrative [facility] ([facility]) - 05/27/2024 5:10 PM CDT Performing Organization Information: [facility] [employer] [facility] [address] [place] [id number] Safia Bell Graeme Suarez MD LAB BLOOD ORDERABLES [facility] RILEY) * Hepatitis C Virus Antibody (05/26/2024 5:34 AM CDT) [facility] HCVAb. Non Reactive Non Reactive 05/26/2024 11:18 AM CDT [facility] Blood Peripheral blood specimen / Unknown Venipuncture / Unknown 05/26/2024 5:34 AM CDT 05/26/2024 6:12 AM CDT Narrative [facility] - 05/26/2024 11:18 AM CDT Antibody detection in the immunocompromised and immunosuppressed population may be delayed or absent entirely. Therefore serial testing, correlation with other clinical findings, and supplemental testing (if available) should be taken into consideration when interpreting the results. Graeme Suarez MD LAB BLOOD ORDERABLES Performing Organization Address City/[facility] Co de Phone Number [facility] Unless otherwise noted, all lab tests performed by: Division of Pathology and Laboratory Medicine [address] [place] [id number] * Hepatitis B Total Ig Core Ab (SCREENING) (anti-HBc total Ig; HBcAb total Ig) (05/26/2024 5:34 AM CDT) [facility] HBcAb. Non Reactive Non Reactive 05/26/2024 11:17 AM CDT [facility] Blood Peripheral blood specimen / Unknown Venipuncture / Unknown 05/26/2024 5:34 AM CDT 05/26/2024 6:12 AM CDT Graeme Suarez MD LAB BLOOD ORDERABLES [facility] Unless otherwise noted, all lab tests performed by: Division of Pathology and Laboratory Medicine [address] [place] [address], [place] [address] * Methylmalonic Acid Quant, Serum (05/26/2024 5:34 AM CDT) MMA Quant-[place] 0.25 <=0.40 nmol/mL 05/30/2024 9:20 AM CDT [facility] Comment: ADDITIONAL INFORMATION This test was developed and its performance characteristics determined by [facility] in a manner consistent with CLIA requirements. This test has not been cleared or approved by the U.S. Food and Drug Administration. Test Performed by: [facility] [place] [address] Furnace Maintenance: Mau Thakkar Ph.D.; CLIA# [id number] Blood Peripheral blood specimen / Unknown Venipuncture / Unknown 05/26/2024 5:34 AM CDT 05/26/2024 6:12 AM CDT Graeme Suarez MD LAB BLOOD ORDERABLES [facility] * (ABNORMAL) Copper Level (05/26/2024 5:34 AM CDT) Pathologist [facility] Copper, S 162(H) 73 - 129 mcg/dL 05/28/2024 11:15 AM CDT [facility] SERRANO Comment: ADDITIONAL INFORMATION This test was developed and its performance characteristics determined by [facility] in a manner consistent with CLIA requirements. This test has not been cleared or approved by the U.S. Food and Drug Administration. Test Performed by: [facility] [address] [place] [id number] Furnace Maintenance: Mau Thakkar Ph.D.; CLIA# [id number] Blood Peripheral blood specimen / Unknown Venipuncture / Unknown 05/26/2024 5:34 AM CDT 05/26/2024 6:12 AM CDT Graeme Suarez MD LAB BLOOD ORDERABLES [facility] * Vitamin D 25OH (05/26/2024 5:34 AM CDT) Vitamin D 25 OH 49 30 - 100 ng/mL 05/26/2024 7:04 AM CDT [facility] Blood Peripheral blood specimen / Unknown Venipuncture / Unknown 05/26/2024 5:34 AM CDT 05/26/2024 6:12 AM CDT Narrative [facility] - 05/26/2024 7:04 AM CDT Reference Range: Deficiency: <=20 ng/mL Insufficiency: 21-29 ng/mL Sufficiency: 30-100 ng/mL Potential toxicity: >100 ng/mL Graeme Suarez MD LAB BLOOD ORDERABLES Performing Organization Address City/[facility]/ZIP Co de Phone Number [facility] Unless otherwise noted, all lab tests performed by: Division of Pathology and Laboratory Medicine [address] [place] [id number] * Hepatitis B Surface Antibody (05/26/2024 5:34 AM CDT) Pathologist [facility] HBsAb Non Reactive 05/26/2024 11:17 AM CDT [facility] Blood Peripheral blood specimen / Unknown Venipuncture / Unknown 05/26/2024 5:34 AM CDT 05/26/2024 6:12 AM CDT Narrative [facility] - 05/26/2024 11:17 AM CDT Vaccinated individual: Reactive Unvaccinated individual: Non-Reactive Graeme Suarez MD LAB BLOOD ORDERABLES [facility] Unless otherwise noted, all lab tests performed by: Division of Pathology and Laboratory Medicine [address] [place] [phone] * Hepatitis B Surface Ag (05/26/2024 5:34 AM CDT) [facility] HBsAg. Non Reactive Non Reactive 05/26/2024 11:17 AM CDT [facility] Blood Peripheral blood specimen / Unknown Venipuncture / Unknown 05/26/2024 5:34 AM CDT 05/26/2024 6:12 AM CDT Graeme Suarez MD LAB BLOOD ORDERABLES Performing Organization Address [facility] Co de Phone Number [facility] Unless otherwise noted, all lab tests performed by: Division of Pathology and Laboratory Medicine [address] [place] [id number] * Transferrin with TIBC (05/26/2024 5:34 AM CDT) Only the most recent of2 resultswithin the time period is included. [facility] Transferrin 242 200 - 360 mg/dL 05/26/2024 6:52 AM CDT [facility] Total Iron Binding Capacity 339 250 - 450 mcg/dL 05/26/2024 6:52 AM CDT [facility] Blood Peripheral blood specimen / Unknown Venipuncture / Unknown 05/26/2024 5:34 AM CDT 05/26/2024 6:12 AM CDT Graeme Suarez MD LAB BLOOD ORDERABLES Performing Organization Address [facility] de Phone Number [facility] Unless otherwise noted, all lab tests performed by: Division of Pathology and Laboratory Medicine [address] [place] [id number] * (ABNORMAL) Vitamin E Level (05/26/2024 5:34 AM CDT) [facility] A-Tocopherol, Vit E-[place] 19.6(H) 5.5 - 17.0 mg/L 05/30/2024 3:16 PM CDT [facility] Comment: ADDITIONAL INFORMATION This test was developed and its performance characteristics determined by [facility] in a manner consistent with CLIA requirements. This test has not been cleared or approved by the U.S. Food and Drug Administration. Test Performed by: [place] [address] Furnace Maintenance: Mau Thakkar Ph.D.; CLIA# [id number] Blood Peripheral blood specimen / Unknown Venipuncture / Unknown 05/26/2024 5:34 AM CDT 05/26/2024 6:12 AM CDT Graeme Suarez MD LAB BLOOD ORDERABLES Performing Organization Address [facility] Co de Phone Number [facility] * Vitamin B1 Level (05/26/2024 5:34 AM CDT) Pathologist [facility] Thiamin( Bld)[facility] 103 70 - 180 nmol/L 05/31/2024 8:43 AM CDT [facility] Comment: ADDITIONAL INFORMATION This test was developed and its performance characteristics determined by [facility] in a manner consistent with CLIA requirements. This test has not been cleared or approved by the U.S. Food and Drug Administration. Test Performed by: [facility] - [address] [address] Furnace Maintenance: Mau Thakkar Ph.D.; CLIA# [id number] Blood Peripheral blood specimen / Unknown Venipuncture / Unknown 05/26/2024 5:34 AM CDT 05/26/2024 6:12 AM CDT Graeme Suarez MD LAB BLOOD ORDERABLES Performing Organization Address [facility] Co de Phone Number [facility] * (ABNORMAL) Vitamin B6 Level (05/26/2024 5:34 AM CDT) Pathologist [facility] 3(L) 5 - 50 mcg/L 05/31/2024 4:02 AM CDT [facility] Comment: ADDITIONAL INFORMATION This test was developed and its performance characteristics determined by [facility] in a manner consistent with CLIA requirements. This test has not been cleared or approved by the U.S. Food and Drug Administration. Pyridoxic Acid (PA)-[place] 6 3 - 30 mcg/L 05/31/2024 4:02 AM CDT [facility] Comment: ADDITIONAL INFORMATION This test was developed and its performance characteristics determined by [facility] in a manner consistent with CLIA requirements. This test has not been cleared or approved by the U.S. Food and Drug Administration. Test Performed by: [facility] [place] [address] Furnace Maintenance: Mau Thakkar Ph.D.; CLIA# [id number] Blood Peripheral blood specimen / Unknown Venipuncture / Unknown 05/26/2024 5:34 AM CDT 05/26/2024 6:12 AM CDT Graeme Suarez MD LAB BLOOD ORDERABLES Performing Organization Address City/[facility] Co de Phone Number [facility] * (ABNORMAL) Iron Level (05/26/2024 5:34 AM CDT) Only the most recent of2 resultswithin the time period is included. Iron Level 49(L) 59 - 158 mcg/dL 05/26/2024 6:52 AM CDT [facility] [place] Is patient fasting? Yes 05/26/2024 6:52 AM CDT [facility] Blood Peripheral blood specimen / Unknown Venipuncture / Unknown 05/26/2024 5:34 AM CDT 05/26/2024 6:12 AM CDT Graeme Suarez MD LAB BLOOD ORDERABLES [facility] Unless otherwise noted, all lab tests performed by: Division of Pathology and Laboratory Medicine [address] [place] [id number] * Homocysteine Total (05/26/2024 5:34 AM CDT) Pathologist [facility] Homocysteine Total 12.8 <=15.0 mcmol/L 05/26/2024 6:34 AM CDT [facility] Blood Peripheral blood specimen / Unknown Venipuncture / Unknown 05/26/2024 5:34 AM CDT 05/26/2024 6:13 AM CDT Narrative [facility] - 05/26/2024 6:34 AM CDT Reference range established based on adult population Graeme Suarez MD LAB BLOOD ORDERABLES Performing Organization Address [facility] de Phone Number [facility] Unless otherwise noted, all lab tests performed by: Division of Pathology and Laboratory Medicine [address] [place] [id number] * Folate Level (05/26/2024 5:34 AM CDT) [facility] Folate Level 10.4 4.8 - 24.2 ng/mL 05/26/2024 6:55 AM CDT [facility] Is patient fasting? Yes 05/26/2024 6:55 AM CDT [facility] Blood Peripheral blood specimen / Unknown Venipuncture / Unknown 05/26/2024 5:34 AM CDT 05/26/2024 6:12 AM CDT Narrative [facility] - 05/26/2024 6:55 AM CDT Reference range established based on adult population. Graeme Suarez MD LAB BLOOD ORDERABLES Performing Organization Address [facility] de Phone Number [facility] Unless otherwise noted, all lab tests performed by: Division of Pathology and Laboratory Medicine [address] [place] [phone] * (ABNORMAL) Ferritin Level (05/26/2024 5:34 AM CDT) Only the most recent of2 resultswithin the time period is included. Ferritin Level 542(H) 30 - 400 ng/mL 05/26/2024 6:56 AM CDT [facility] Blood Peripheral blood specimen / Unknown Venipuncture / Unknown 05/26/2024 5:34 AM CDT 05/26/2024 6:12 AM CDT Narrative [facility] - 05/26/2024 6:56 AM CDT Reference range established for age 20 - 60 years Graeme Suarez MD LAB BLOOD ORDERABLES Performing Organization Address City/[facility] Co de Phone Number [facility] Unless otherwise noted, all lab tests performed by: Division of Pathology and Laboratory Medicine [address] [place] [id number] * Vitamin B12 Level (05/26/2024 5:34 AM CDT) Vitamin B12 Level 666 232 - 1,245 pg/mL 05/26/2024 6:54 AM CDT [facility] Is patient fasting? Yes 05/26/2024 6:54 AM CDT [facility] Blood Peripheral blood specimen / Unknown Venipuncture / Unknown 05/26/2024 5:34 AM CDT 05/26/2024 6:12 AM CDT Narrative [facility] - 05/26/2024 6:54 AM CDT Reference range established based on adult population. Graeme Suarez MD LAB BLOOD ORDERABLES Performing Organization Address City/[facility] Co de Phone Number [facility] Unless otherwise noted, all lab tests performed by: Division of Pathology and Laboratory Medicine [address] [place] [phone] * (ABNORMAL) Hepatic Function Panel (05/25/2024 4:48 AM CDT) Bilirubin Total <0.3 0.0 - 1.2 mg/dL 05/25/2024 4:02 PM CDT [facility] Comment: Direct and indirect bilirubin will not be reported when Total bilirubin result is <0.3 mg/dL Indocyanine Green (ICG) may cause falsely elevated bilirubin results. Total and direct bilirubin must not be measured from samples containing indocyanine green. False elevation of total bilirubin can be seen in patients with IgG concentrations above 28 g/L. Bilirubin Direct 05/25/20 4:02 PM CDT [facility] Comment: Direct and indirect bilirubin will not be reported when Total bilirubin result is <0.3 mg/dL Indocyanine Green (ICG) may cause falsely elevated bilirubin results. Total and direct bilirubin must not be measured from samples containing indocyanine green. Bilirubin Indirect 2023 4:02 PM CDT [facility] Comment:Direct and indirect bilirubin will not be reported when Total bilirubin result is <0.3 mg/dL Tot Protein 6.6 6.4 - 8.3 gm/dL 05/25/2024 4:02 PM CDT [facility] Alkaline Phosphatase 176(H) 40 - 129 U/L 05/25/2024 4:02 PM CDT [facility] Albumin Level 3.2(L) 3.5 - 5.2 gm/dL 05/25/2024 4:02 PM CDT [facility] AST 42(H) <=40 U/L 05/25/2024 4:02 PM CDT [facility] ALT 38 <=41 U/L 05/25/2024 4:02 PM CDT [facility] Blood Peripheral blood specimen / Unknown Venipuncture / Unknown 05/25/2024 4:48 AM CDT 05/25/2024 5:09 AM CDT Graeme Suarez MD LAB BLOOD ORDERABLES [facility] Unless otherwise noted, all lab tests performed by: Division of Pathology and Laboratory Medicine [address] [place] [phone] * (ABNORMAL) Basic Metabolic Panel- Total Calcium (05/25/2024 4:48 AM CDT) Only the most recent of11 resultswithin the time period is included. eGFR 57(L) >=60 mL/min/1. 73 sq. m 05/25/2024 5:59 AM CDT [facility] Comment: The eGFRcr is calculated [...] G1 nor G2 fulfill criteria for CKD. Calcium Level Total 9.1 8.2 - 10.2 mg/dL 05/25/2024 5:59 AM CDT [facility] Sodium Level 138 136 - 145 mmol/L 05/25/2024 5:59 AM T [facility] Potassium Level 4.4 3.4 - 4.5 mmol/L 05/25/2024 5:59 AM CDT [facility] Chloride 106 98 - 107 mmol/L 05/25/2024 5:59 AM CDT [facility] CO2 24 22 - 29 mmol/L 05/25/2024 5:59 AM CDT [facility] Anion Gap 8 4 - 14 mmol/L 05/25/2024 5:59 AM T [facility] Creatinine 1.27(H) 0.67 - 1.17 mg/dL 05/25/2024 5:59 AM CDT [facility] BUN 23 6 - 23 mg/dL 05/25/2024 5:59 AM T [facility] Glucose Level 144(H) 70 - 99 mg/dL 05/25/2024 5:59 AM T [facility] Comment: Effective 06/12/16, the glucose reference intervals have been updated based on [place] [employer] guidelines (Standards of Medical Care in Diabetes 2016. Diabetes Care 2016; 39: S13-S22). Fasting blood glucose: Normal: 70-99 mg/dL Impaired fasting glucose (increased risk for diabetes or pre-diabetes): 100-125 mg/dL Diabetes mellitus: >/=126 mg/dL Random blood glucose: Normal: 70-199 mg/dL Note: Random glucose >100 mg/dL is associated with increased risk for diabetes. Blood Peripheral blood specimen / Unknown Venipuncture / Unknown 05/25/2024 4:48 AM CDT 05/25/2024 5:09 AM CDT Gale Sharp MD LAB BLOOD ORDERABLES Performing Organization Address City/[facility]/ZIP Co de Phone Number [facility] Unless otherwise noted, all lab tests performed by: Division of Pathology and Laboratory Medicine [address] [place] [phone] * aPTT (05/25/2024 4:48 AM CDT) Only the most recent of2 resultswithin the time period is included. Activated PTT 29.1 24.1 - 35.5 second(s) 05/25/2024 5:40 AM CDT [facility] Blood Peripheral blood specimen / Unknown Venipuncture / Unknown 05/25/2024 4:48 AM CDT 05/25/2024 5:09 AM CDT Mert Haque APRN LAB BLOOD ORDERABLES Performing Organization Address City/[facility]/ZIP Co de Phone Number [facility] Unless otherwise noted, all lab tests performed by: Division of Pathology and Laboratory Medicine [address] [place] [phone] * Fibrinogen (05/25/2024 4:48 AM CDT) Fibrinogen 443 214 - 503 mg/dL 05/25/2024 5:40 AM CDT [facility] Blood Peripheral blood specimen / Unknown Venipuncture / Unknown 05/25/2024 4:48 AM CDT 05/25/2024 5:09 AM CDT Mert Haque APRN LAB BLOOD ORDERABLES [facility] Unless otherwise noted, all lab tests performed by: Division of Pathology and Laboratory Medicine [address] [place] [address] * Prepare RBC:G1743, 1 Units (05/24/2024 6:26 AM CDT) Only the most recent of5 resultswithin the time period is included. Product Code [id number] [facility] Product Code Text Red Blood Cells [facility] QTY Ordered 1 [facility] Dispense Status Transfused [facility] Unit Expiration [id number] [facility] Unit Number [id number] [facility] Unit Blood Type O+ [facility] Bag Volume 420 [facility] XM Interpretation Compatible U T [facility] Unit Blood Type Barcode 5100 [facility] PRBC Product Ready For Mechanic/Welder B2 Blood Bank [facility] RBC Product Status 1 RBC approved [facility] Comment:Order Form 03 when r rosario for product issue. Blood Stephen Chavarria MD BLOOD BANK PRODUCT O RDERABLES Performing Organization Address City/[facility]/ZIP Co de Phone Number [facility] [address] [place] [address] * EKG, 12-Lead (05/18/2024) Christopher Duran MD ECG ORDERABLES Performing Organization Address City/[facility]/ZIP Co de Phone Number [facility]EC[facility] * (ABNORMAL) Hemoglobin A1c (05/16/2024 2:54 AM CDT) Only the most recent of2 resultswithin the time period is included. Hemoglobin A1c 7.0(H) 4.3 - 5.6 % 05/16/2024 1:00 PM CDT [facility] Blood Peripheral blood specimen / Unknown Venipuncture / Unknown 05/16/2024 2:54 AM CDT 05/16/2024 3:29 AM CDT Narrative [facility] - 05/16/2024 1:00 PM CDT HbA1c values >=6.5% are diagnostic of diabetes mellitus. Diagnosis should be confirmed by repeat testing. Therapeutic Action suggested: >8.0% HbA1c; Goal of therapy: <7.0% HbA1c Partha Gutierrez MD LAB BLOOD ORDERABLES [facility] Unless otherwise noted, all lab tests performed by: Division of Pathology and Laboratory Medicine [address] [place] [phone] * (ABNORMAL) Fecal Occult Blood, Stool (05/15/2024 1:54 PM CDT) Fecal Occult Blood Positive( A) Negative 05/15/2024 3:32 PM CDT [facility] Comment:A positive result in dicates the presence of hemoglobin in the submitted fecal specimen. A positive result should not be considered conclusive evidence of the presence of GI bleeding or pathology. Recommend clinical correlation and further studies to establish the source of bleeding. Stool Rectum structure / Unknown Non-blood Collection / Unknown 05/15/2024 1:54 PM CDT 05/15/2024 2:07 PM CDT Narrative [facility] - 05/15/2024 3:32 PM CDT Fecal occult blood testing is performed using a qualitative immunoassay to specifically detect the presence of hemoglobin in human feces. The fecal immunochemical test (FIT) is performed on the [employer] [employer] iFOB from [employer]. This is an FDA-approved assay and its performance characteristics were verified by the microbiology laboratory at the [facility]. Results must be interpreted within the context of all relevant clinical and laboratory findings. Shayy Perdomo MD MICROBIOLOGY - G ENERAL ORDERABLES [facility] Unless otherwise noted, all lab tests performed by: Division of Pathology and Laboratory Medicine [facility] [place] [address] * X-ray Chest 1 View (05/15/2024 9:33 AM CDT) Anatomical Region Laterality Modality Chest Digital Radiogra phy 05/15/2024 9:47 AM CDT Impressions 05/15/2024 9:54 AM CDT 1. Low lung volumes. There could be some minimal basilar atelectasis or edema. 2. Central venous catheter unchanged. ACTIONABLE ITEMS/RECOMMENDATIONS*: None. *An Actionable Finding is a finding that may be unrelated to the original reason for imaging but potentially actionable, meaning further investigation may be necessary. The Actionable Findings Vigilance Unit (AFVU) assists medical providers with responding to additional radiologic findings that are unexpected and potentially actionable. Narrative 05/15/2024 9:54 AM CDT FULL RESULT: Examination: XR CHEST 1 VW on 05/15/2024 9:33 AM. Clinical History: Bacteremia caused by Gram-negative bacteria Indication: Check Central Line placement Comparison: 01/26/2024 Technique: Frontal radiograph of the chest Findings: Support Apparatus: Right internal jugular port catheter remains in place with its tip about 4 cm above the azygos arch probably in the right internal jugular vein or brachiocephalic vein. Wire stent in the abdomen probably a biliary stent. Lungs/Pleura/Mediastinum: Lung volumes are low. There is slight interstitial prominence in the lung bases and behind the heart which may be part of the low lung volumes. No more definite consolidation. No pleural effusion or pneumothorax. Heart size is normal. Sternotomy wires and mediastinal clips are seen again. Procedure Note William Henriquez MD - 05/15/2024 FULL RESULT: Examination: XR CHEST 1 VW on 05/15/2024 9:33 AM. Clinical History: Bacteremia caused by Gram-negative bacteria Indication: Check Central Line placement Comparison: 01/26/2024 Technique: Frontal radiograph of the chest Findings: Support Apparatus: Right internal jugular port catheter remains in placewith its tip about 4 cm above the azygos arch probably in the rightinternal jugular vein or brachiocephalic vein. Wire stent in the abdomenprobably a biliary stent. Lungs/Pleura/Mediastinum: Lung volumes are low. There is slightinterstitial prominence in the lung bases and behind the heart which maybe part of the low lung volumes. No more definite consolidation. Nopleural effusion or pneumothorax. Heart size is normal. Sternotomy wiresand mediastinal clips are seen again. IMPRESSION: 1. Low lung volumes. There could be some minimal basilar atelectasis oredema. 2. Central venous catheter unchanged. ACTIONABLE ITEMS/RECOMMENDATIONS*: None. *An Actionable Finding is a finding that may be unrelated to the originalreason for imaging but potentially actionable, meaning furtherinvestigation may be necessary. The Actionable Findings Vigilance Unit(AFVU) assists medical providers with responding to additional radiologicfindings that are unexpected and potentially actionable. Sahyy Perdomo MD IMG DIAGNOSTIC I MAGING ORDERABLES * (ABNORMAL) Urinalysis with Microscopic (05/14/2024 6:26 PM CDT) Urine Appearance Clear Clear 05/14/20 9:15 PM CDT [facility] Comment:This result was prev iously suppressed from the chart. Urine Color Straw Colorless, Straw, Yellow, Dark Yellow, Straw-Yello w 05/14/2024 9:15 PM CDT [facility] Comment:This result was prev iously suppressed from the chart. Urine Specific [place] 1.020 1.003 - 1.035 05/14/2024 9:15 PM CDT [facility] Comment:This result was prev iously suppressed from the chart. Urine pH 6.0 5.0 - 8.0 05/14/2024 9:15 PM CDT [facility] Comment:This result was prev iously suppressed from the chart. Urine Glucose 70(A) Negative mg/dL 05/14/2024 9:15 PM CDT [facility] Comment:This result was prev iously suppressed from the chart. Urine Ketones Negative Negative mg/dL 05/14/2024 9:15 PM CDT [facility] Comment:This result was prev iously suppressed from the chart. Urine Blood Moderate(A) Negative 05/14/2024 9:15 PM CDT [facility] Comment:This result was prev iously suppressed from the chart. Urine Protein 50(A) Negative mg/dL 05/14/2024 9:15 PM CDT [facility] Comment:This result was prev iously suppressed from the chart. Urine Bilirubin Negative Negative 9:15 PM CDT [facility] Urine Urobilinogen Negative Negative 05/14/2024 9:15 PM CDT [facility] Urine Nitrite Negative Negative 05/14/2024 9:15 PM CDT [facility] Comment:This result was prev iously suppressed from the chart. Urine Leukocyte Esterase Small(A) Negative 05/14/2024 9:15 PM CDT [facility] Comment:This result was prev iously suppressed from the chart. Urine WBC 7(H) <=2 /HPF 05/14/2024 9:15 PM CDT [facility] Urine RBC 8(H) <=2 /HPF 05/14/2024 9:15 PM CDT [facility] Urine Mucous Trace Not Seen, Trace /HPF 05/14/2024 9:15 PM CDT [facility] Comment:This result was prev iously suppressed from the chart. Urine Bacteria OCC(A) Not Seen /HPF 05/14/2024 9:15 PM CDT [facility] Comment:This result was prev iously suppressed from the chart. Urine Squamous Epithelial Cells OCC Not Seen, OCC, Rare /HPF 05/14/2024 9:15 PM CDT [facility] Comment:This result was prev iously suppressed from the chart. Urine Hyaline Casts 6(H) <=2 /LPF 05/14/2024 9:15 PM CDT [facility] Urine Voided urine specimen / Unknown Non-blood Collection / Unknown 05/14/2024 6:26 PM CDT 05/14/2024 8:55 PM CDT Narrative [facility] - 05/14/2024 9:15 PM CDT Some reporting parameters within the Urinalysis test have changed due to the implementation of new instrumentation in the [facility] [place], allowing greater sensitivity of measurement. Urinalysis results reported by the [facility] using existing instrumentation, as well as Urinalysis testing performed manually or by back-up methodology at the main campus, will remain relatively unchanged. New reporting parameters and units will now be reported for all campuses. Shayy Perdomo MD URINE ORDERABLES [facility] Unless otherwise noted, all lab tests performed by: Division of Pathology and Laboratory Medicine [address] [place] [address] [phone] * Echocardiogram 2D Complete (05/14/2024 4:10 PM CDT) EF 63 ISCV 05/14/2024 3:34 PM CDT Narrative [facility] - 05/14/2024 4:55 PM CDT Version 2 Echocardiographic Report Interpretation Summary A complete two-dimensional transthoracic echocardiogram was performed (2D, M- mode, Spectral and color Doppler). The study was technically difficult. There is no comparison study available. Normal left ventricular size and systolic function. LV ejection fraction calculated using the bi-plane method of disks is 63 %. The right ventricle is normal in size and function. Unable to estimate RVSP due to lack of TR visualization. There is no pericardial effusion. Left Ventricle: Normal left ventricular size and systolic function. LV ejection fraction calculated using the bi-plane method of disks is 63 %. Septal motion is consistent with post-operative state. I WMSI = 1.00 % Normal = 100 Segments Size X - Cannot 2 - 1-2 small Interpret 1 - Normal Hypokinetic 3 - Akinetic 4 - Dyskinetic3- 5 moderate 5 - Aneurysmal 6-14 large 15-16 diffuse Cardiac Mechanics/Speckle Tracking Imaging: Speckle tracking imaging was technically limited. Diastology: The transmitral spectral Doppler flow pattern is suggestive of impaired LV relaxation. Right Ventricle: The right ventricle is normal in size and function. Normal RV systolic function using TAPSE criteria. Atria: Left atrium not well seen for volumetric measures but appears grossly normal in size. Right atrial size is normal. Mitral Valve: The mitral valve is grossly normal. There is trace mitral regurgitation. Tricuspid Valve: The tricuspid valve is not well visualized. There is trace tricuspid regurgitation. Unable to estimate RVSP due to lack of TR visualization. Aortic Valve: The aortic valve is trileaflet. The aortic valve opens well. Mild aortic valve sclerosis. No aortic regurgitation is present. Pulmonic Valve: The pulmonic valve is not well visualized. Great Vessels: The aortic root is normal size. The inferior vena cava demonstrates normal size and normal respiratory variation. Pericardium/Pleural: There is no pericardial effusion. MMode/2D Measurements IVSd: 0.85 cm LVIDd: 3.7 cm LVIDs: 2.7 cm LVPWd: 0.68 cm FS: 28.7 % Ao root diam: 2.8 cm Ao root area: 6.1 cm2 LA dimension: 3.6 cm LVOT diam: 2.0 cm EDV(MOD-A4C): 81.3 ml ESV(MOD-A4C): 31.9 ml LVOT area: 3.1 cm2 EF(MOD-A4C): 60.8 % EDV(MOD-A2C): 92.5 ml ESV(MOD-A2C): 30.3 ml EDV(MOD-bp): 86.9 ml EF(MOD-A2C): 67.2 % ESV(MOD-bp): 32.1 ml EF(MOD-bp): 63.0 % LAV(MOD-A4C): 51.1 ml EDV (MOD-bp) Index: 48.1 ml/m2 ESV (MOD-bp) Index: 17.8 ml/m2 RWT: 0.36 cm TAPSE (>1.6): 1.7 cm Doppler Measurements MV E max marielos: 66.9 cm/sec MV V2 max: 106.1 cm/sec MV A max marielos: 98.8 cm/sec MV max P.5 mmHg MV E/A: 0.68 MV V2 mean: 64.8 cm/sec MV mean P.8 mmHg MV V2 VTI: 20.9 cm MVA(VTI): 3.4 cm2 Ao V2 max: 179.5 cm/sec LV V1 max P.0 mmHg Ao max P.9 mmHg LV V1 mean P.9 mmHg Ao V2 mean: 102.9 cm/sec LV V1 max: 141.1 cm/sec Ao mean P.2 mmHg LV V1 mean: 93.2 cm/sec Ao V2 VTI: 26.2 cm LV V1 VTI: 23.1 cm RICHARD(I,D): 2.7 cm2 RICHARD(V,D): 2.4 cm2 SV(LVOT): 71.8 ml PA V2 max: 120.8 cm/sec PA max P.8 mmHg PA V2 mean: 82.4 cm/sec PA mean P.0 mmHg PA V2 VTI: 20.4 cm Med Peak E' Marielos: 3.4 cm/sec Lat Peak E' Marielos: 12.0 cm/sec RICHARD Index (I,D): 1.5 RICHARD Index (V,D): 1.4 Dimensionless Index: 0.79 E/e' (avg): 8.6 E/e' (lat): 5.6 E/e' (sept): 19.4 Procedure Note Sandy Haddad MD - 05/14/2024 Version 2 Echocardiographic Report Interpretation Summary A complete two-dimensional transthoracic echocardiogram was performed (2D,M- mode, Spectral and color Doppler). The study was technically difficult.There is no comparison study available. Normal left ventricular size and systolic function. LV ejection fraction calculated using the bi-plane method of disks is 63%. The right ventricle is normal in size and function. Unable to estimate RVSP due to lack of TR visualization. There is no pericardial effusion. Left Ventricle: Normal left ventricular size and systolic function. LV ejection fractioncalculated using the bi-plane method of disks is 63 %. Septal motion isconsistent with post-operative state. I WMSI = 1.00 % Normal = 100 Segments Size X - Cannot 2 - 1-2small Interpret 1 - Normal Hypokinetic 3 - Akinetic 4 - Dyskinetic3-5moderate 5 - Aneurysmal6-14 large 15-16 diffuse Cardiac Mechanics/Speckle Tracking Imaging: Speckle tracking imaging was technically limited. Diastology: The transmitral spectral Doppler flow pattern is suggestive of impaired LVrelaxation. Right Ventricle: The right ventricle is normal in size and function. Normal RV systolicfunction using TAPSE criteria. Atria: Left atrium not well seen for volumetric measures but appears grosslynormal in size. Right atrial size is normal. Mitral Valve: The mitral valve is grossly normal. There is trace mitral regurgitation. Tricuspid Valve: The tricuspid valve is not well visualized. There is trace tricuspidregurgitation. Unable to estimate RVSP due to lack of TR visualization. Aortic Valve: The aortic valve is trileaflet. The aortic valve opens well. Mild aorticvalve sclerosis. No aortic regurgitation is present. Pulmonic Valve: The pulmonic valve is not well visualized. Great Vessels: The aortic root is normal size. The inferior vena cava demonstrates normalsize and normal respiratory variation. Pericardium/Pleural: There is no pericardial effusion. MMode/2D Measurements IVSd: 0.85 cmLVIDd: 3.7 cm LVIDs: 2.7 cm LVPWd: 0.68 cm FS: 28.7 %Ao root diam: 2.8 cm Ao root area: 6.1 cm2 LA dimension: 3.6 cm LVOT diam: 2.0 cmEDV(MOD-A4C): 81.3 ml ESV(MOD-A4C): 31.9 ml LVOT area: 3.1 cm2EF(MOD-A4C): 60.8 % EDV(MOD-A2C): 92.5 ml ESV(MOD-A2C): 30.3 mlEDV(MOD-bp): 86.9 ml EF(MOD-A2C): 67.2 %ESV(MOD-bp): 32.1 ml EF(MOD-bp): 63.0 % LAV(MOD-A4C): 51.1 mlEDV (MOD-bp) Index: 48.1 ml/m2 ESV (MOD-bp) Index: 17.8 ml/m2RWT: 0.36 cm TAPSE (>1.6): 1.7 cm Doppler Measurements MV E max marielos: 66.9 cm/secMV V2 max: 106.1 cm/sec MV A max marielos: 98.8 cm/secMV max P.5 mmHg MV E/A: 0.68MV V2 mean: 64.8 cm/sec MV mean P.8 mmHg MV V2 VTI: 20.9 cm MVA(VTI): 3.4 cm2 Ao V2 max: 179.5 cm/secLV V1 max P.0 mmHg Ao max P.9 mmHgLV V1 mean P.9 mmHg Ao V2 mean: 102.9 cm/secLV V1 max: 141.1 cm/sec Ao mean P.2 mmHgLV V1 mean: 93.2 cm/sec Ao V2 VTI: 26.2 cmLV V1 VTI: 23.1 cm RICHARD(I,D): 2.7 cm2 RICHARD(V,D): 2.4 cm2 SV(LVOT): 71.8 mlPA V2 max: 120.8 cm/sec PA max P.8 mmHg PA V2 mean: 82.4 cm/sec PA mean P.0 mmHg PA V2 VTI: 20.4 cm Med Peak E' Marielos: 3.4 cm/secLat Peak E' Marielos: 12.0 cm/sec RICHARD Index (I,D): 1.5AVA Index (V,D): 1.4 Dimensionless Index: 0.79E/e' (avg): 8.6 E/e' (lat): 5.6E/e' (sept): 19.4 Shayy Perdomo MD CV ECHO ORDERABL ES Performing Organization Address City/[facility]/ZIP Co de Phone Number [facility] * (ABNORMAL) NT-Pro BNP (In-House) (05/14/2024 10:09 AM CDT) Only the most recent of2 resultswithin the time period is included. [facility] NT-ProBNP 772(H) <=450 pg/mL 05/14/2024 12:31 PM CDT [facility] Blood Peripheral blood specimen / Unknown Venipuncture / Unknown 05/14/2024 10:09 AM CDT 05/14/2024 10:18 AM CDT Shayy Perdomo MD LAB BLOOD ORDERA BLES [facility] Unless otherwise noted, all lab tests performed by: Division of Pathology and Laboratory Medicine [address] [place] [address] [place] [address] * Blood Culture - CVC (05/14/2024 10:09 AM CDT) Only the most recent of3 resultswithin the time period is included. [facility] Blood Culture No Growth. 05/19/2024 12:02 PM CDT [facility] Blood Peripheral blood specimen / Unknown Venipuncture / Unknown 05/14/2024 10:09 AM CDT 05/14/2024 10:18 AM CDT Shayy Perdomo MD MICROBIOLOGY - G ENERAL ORDERABLES [facility] Unless otherwise noted, all lab tests performed by: Division of Pathology and Laboratory Medicine [facility] [place] [address] * CT Abdomen Pelvis with and without Contrast Kidney (05/13/2024 10:51 AM CDT) Anatomical Region Laterality Modality Abdomen, Pelvis Computed Tomogra phy 05/13/2024 11:2 2 AM CDT Impressions 05/13/2024 12:00 PM CDT 1. There our bilateral nonobstructive renal calculi as well as a calculus in the right proximal ureter that remains unchanged. 2. The right kidney is decompressed with a ureteral catheter that extends to the urethra. 3. No significant change in thickening around the biliary stent that may represent tumor or treated tumor. ACTIONABLE ITEMS/RECOMMENDATIONS*: None. *An Actionable Finding is a finding that may be unrelated to the original reason for imaging but potentially actionable, meaning further investigation may be necessary. The Actionable Findings Vigilance Unit (AFVU) assists medical providers with responding to additional radiologic findings that are unexpected and potentially actionable. Narrative 05/13/2024 12:00 PM CDT FULL RESULT: Examination: CT ABDOMEN PELVIS W WO CONTRAST KIDNEY on 05/13/2024 10:51 AM. Clinical History: Bacteremia. Indication: hematuria, hx ureteral stent. Comparison: CT chest, abdomen and pelvis 04/06/2024. Technique: CT ABDOMEN PELVIS W WO CONTRAST KIDNEY. 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 Hepatobiliary: A biliary stent is unchanged. There is minimal thickening around the stent that remains unchanged and may represent tumor or treated tumor. No new or enlarging liver lesions are seen. No biliary dilatation. Bladder is absent. Spleen: No splenomegaly. Pancreas: No mass or ductal dilatation. Adrenal Glands: No mass. Kidneys, Ureters, Bladder: No hydronephrosis. There are renal cysts including some that appear hyperdense. There are nonobstructing calculi noted in both kidneys. The largest calculus in the left kidney measures 0.6 cm (series 4 image 67). The largest at the lower pole the right kidney measures 1.1 cm (series 4 image 84). There is also a calculus in the proximal right ureter measuring 1.3 cm (series 4 image 96). A right ureteral stent extends from the proximal ureter through the ureterovesical junction and into the urethra. The urinary bladder is incompletely distended. Gastrointestinal Tract: No obstruction. Pelvic Organs: No pelvic mass. Peritoneum/Retroperitoneum: No ascites. Lymph Nodes: No lymphadenopathy. Musculoskeletal: No suspicious skeletal lesion. Procedure Note Dora Rushing MD - 05/13/2024 FULL RESULT: Examination: CT ABDOMEN PELVIS W WO CONTRAST KIDNEY on 05/13/2024 10:51AM. Clinical History: Bacteremia. Indication: hematuria, hx ureteral stent. Comparison: CT chest, abdomen and pelvis 04/06/2024. Technique: CT ABDOMEN PELVIS W WO CONTRAST KIDNEY. 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 Hepatobiliary: A biliary stent is unchanged. There is minimal thickeningaround the stent that remains unchanged and may represent tumor or treatedtumor. No new or enlarging liver lesions are seen. No biliary dilatation.Bladder is absent. Spleen: No splenomegaly. Pancreas: No mass or ductal dilatation. Adrenal Glands: No mass. Kidneys, Ureters, Bladder: No hydronephrosis. There are renal cystsincluding some that appear hyperdense. There are nonobstructing calculinoted in both kidneys. The largest calculus in the left kidney measures0.6 cm (series 4 image 67). The largest at the lower pole the right kidneymeasures 1.1 cm (series 4 image 84). There is also a calculus in theproximal right ureter measuring 1.3 cm (series 4 image 96). A rightureteral stent extends from the proximal ureter through the ureterovesicaljunction and into the urethra. The urinary bladder is incompletely distended. Gastrointestinal Tract: No obstruction. Pelvic Organs: No pelvic mass. Peritoneum/Retroperitoneum: No ascites. Lymph Nodes: No lymphadenopathy. Musculoskeletal: No suspicious skeletal lesion. IMPRESSION: 1. There our bilateral nonobstructive renal calculi as well as a calculusin the right proximal ureter that remains unchanged. 2. The right kidney is decompressed with a ureteral catheter that extendsto the urethra. 3. No significant change in thickening around the biliary stent that mayrepresent tumor or treated tumor. ACTIONABLE ITEMS/RECOMMENDATIONS*: None. *An Actionable Finding is a finding that may be unrelated to the originalreason for imaging but potentially actionable, meaning furtherinvestigation may be necessary. The Actionable Findings Vigilance Unit(AFVU) assists medical providers with responding to additional radiologicfindings that are unexpected and potentially actionable. Armen Chavarria MD IMG CT ORDERABLES * (ABNORMAL) Urinalysis Microscopic Exam (05/12/2024 3:32 PM CDT) Urine Mucous Not Seen Not Seen, Trace /HPF 05/12/2024 4:00 PM CDT [facility] Urine Bacteria Not Seen Not Seen /HPF 05/12/2024 4:00 PM CDT [facility] Urine Squamous Epithelial Cells Not Seen Not Seen, OCC, Rare /HPF 05/12/2024 4:00 PM CDT [facility] Urine WBC 16(H) <=2 /HPF 05/12/2024 4:00 PM CDT [facility] Urine RBC >182(H) <=2 /HPF 05/12/2024 4:00 PM CDT [facility] Urine (Urine Clean Catch) Non-blood Collection / Unknown 05/12/2024 3:32 PM CDT 05/12/2024 3:41 PM CDT Ramirez Rasheed MD LAB BLOOD ORDERABLES [facility] Unless otherwise noted, all lab tests performed by: Division of Pathology and Laboratory Medicine [address] [place] [id number] * Urine Culture (05/12/2024 3:32 PM CDT) Pathologist [facility] Urine Culture No Growth. 05/14/2024 12:46 PM CDT [facility] Urine (Urine Clean Catch) Non-blood Collection / Unknown 05/12/2024 3:32 PM CDT 05/12/2024 3:41 PM CDT Ramirez Rasheed MD MICROBIOLOGY - GENER AL ORDERABLES Performing Organization Address City/[facility]/ZIP Co de Phone Number [facility] Unless otherwise noted, all lab tests performed by: Division of Pathology and Laboratory Medicine [address] [place] [id number] * Confirm ABORh (05/12/2024 3:18 PM CDT) ABORh Confirm O POS 05/12/2024 3:12 PM CDT [facility] Blood Peripheral blood specimen / Unknown Port / Unknown 05/12/2024 3:18 PM CDT 05/12/2024 3:23 PM CDT Ramirez Rasheed MD BLOOD BANK TEST ORDE RABLES [facility] [address] [place] [address] [id number] [place] [address] * (ABNORMAL) ESR (05/12/2024 3:12 PM CDT) Sedimentation Rate 92(H) <=20 mm/hr 2023 4:24 PM CDT [facility] Blood Peripheral blood specimen / Unknown Port / Unknown 05/12/2024 3:12 PM CDT 05/12/2024 3:23 PM CDT Ramirez Rasheed MD LAB BLOOD ORDERABLES [facility] Unless otherwise noted, all lab tests performed by: Division of Pathology and Laboratory Medicine [address] [place] [id number] * CT Chest Abdomen Pelvis with and [...] are unexpected and potentially actionable. Marbella GRAJEDA Laurence CT ORDERABLES * CT Abdomen Pelvis without Contrast (02/05/2024 [...] impression. Marbella GRAJEDA IMG CT ORDERABLES * Troponin I (Sendout) (01/27/2024 9:16 AM CDT) Troponin-I 27 <=78 01/28/2024 7:08 AM CDT [facility] Blood Peripheral blood specimen / Unknown Port / Unknown 01/27/2024 9:16 AM CDT 01/27/2024 9:17 AM CDT Narrative [facility] - 01/28/2024 7:08 AM CDT Based on the Third [place] Definition of Mycocardial Infarction, the 99th percentile upper reference limit of Troponin I for a healthy population is <0.03 ng/mL. Jose Finch MD LAB BLOOD ORDERABLES [facility] [address] [place] [address], * (ABNORMAL) Troponin T (In-House) (01/27/2024 9:16 AM CDT) Troponin T 34(H) <=19 ng/L 01/27/2024 2:57 PM CDT [facility] Blood Peripheral blood specimen / Unknown Port / Unknown 01/27/2024 9:16 AM CDT 01/27/2024 9:17 AM CDT Narrative [facility] - 01/27/2024 2:57 PM CDT [...] results. Jose Finch MD LAB BLOOD ORDERABLES [facility] Unless otherwise noted, all lab tests performed by: Division of Pathology and Laboratory Medicine [address] [place] [id number] * CKMB (01/27/2024 9:16 AM CDT) CKMB <2.0 <=10.4 ng/mL 01/27/2024 3:01 PM CDT [facility] Blood Peripheral blood specimen / Unknown Port / Unknown 01/27/2024 9:16 AM CDT 01/27/2024 9:17 AM CDT Jose Finch MD LAB BLOOD ORDERABLES [facility] Unless otherwise noted, all lab tests performed by: Division of Pathology and Laboratory Medicine [address] [place] [id number] * Creatine Kinase (01/27/2024 9:16 AM CDT) Creatine Kinase 41 39 - 308 U/L 01/27/2024 3:01 PM CDT [facility] Blood Peripheral blood specimen / Unknown Port / Unknown 01/27/2024 9:16 AM CDT 01/27/2024 9:17 AM CDT Jose Finch MD LAB BLOOD ORDERABLES [facility] Unless otherwise noted, all lab tests performed by: Division of Pathology and Laboratory Medicine [address] [place] [address] * (ABNORMAL) Lipid Panel (01/27/2024 9:16 AM CDT) Cholesterol Total 142 <=199 mg/dL 01/27/2024 9:55 AM [facility] Comment: ATP III Classification of Total Cholesterol - Primary Target of Therapy (in mg/dL): <200 Desirable 200-239 Borderline high >=240 High Triglyceride 210(H) <=149 mg/dL 01/27/2024 9:55 AM [facility] Comment: ATP III Classification of Serum Triglycerides Primary Target of Therapy (in mg/dL): <150 Normal 150-199 Borderline high 200-499 High >=500 Very high Non-fasting triglycerides >200 mg/dL may be followed up with a fasting Lipid Panel. Calculated LDL-C may be falsely decreased when non-fasting triglycerides >200 mg/dL. HDL Cholesterol 39(L) >=40 mg/dL 01/27/2024 9:55 AM [facility] LDL Cholesterol 61 <=100 mg/dL 01/27/2024 9:55 AM [facility] Comment: ATP III Classification of LDL Cholesterol Primary Target of Therapy (in mg/dL): <100 Optimal 100-129 Near optimal/above optimal 130-159 Borderline high 160-189 High >=190 Very high Very Low Density Lipoprotein 42 mg/dL 01/27/2024 9:55 AM [facility] Is patient fasting? Yes 01/26 9:55 AM [facility] Blood Peripheral blood specimen / Unknown Port / Unknown 01/27/2024 9:16 AM CDT 01/27/2024 9:17 AM CDT Jose Finch MD LAB BLOOD ORDERABLES [facility] [address] [facility], [facility] [address] [place] [address] * XR Chest 2 Views (01/26/2024 1:30 [...] with and without Contrast (01/16/2024 6:53 PM MINE SUPERVISOR) Anatomical Region Laterality Modality Abdomen Magnetic Resonan ce 01/17/2024 5:58 AM MINE SUPERVISOR Impressions 01/17/2024 7:20 AM MINE SUPERVISOR Impression: 1. The primary tumor within the [...] ITEMS/RECOMMENDATIONS*: See impression. Narrative 01/17/2024 7:20 AM MINE SUPERVISOR Examination: MRI ABDOMEN & PELVIS W AND [...] dated 12/09/2023 and ERCP images from ERCP 2-24. Comparison is also made with [...] in the segment 8 liver dome medially ([id number], image 174) shows corresponding T2 hyperintensity (series [...] lymphadenopathy. ACTIONABLE ITEMS/RECOMMENDATIONS*: See impression. Marbella GRAJEDA [facility] ORDERABLES * CT Chest without Contrast (01/07/2024 4:49 PM MINE SUPERVISOR) Anatomical Region Laterality Modality Chest Computed Tomogra phy 01/08/2024 7:15 AM MINE SUPERVISOR Impressions 01/08/2024 7:30 AM MINE SUPERVISOR Calcified and noncalcified pulmonary nodules may be sequela of granulomatous disease. Follow-up to ensure stability exclude metastatic disease can be performed. Bilateral peripheral lower lung reticular opacities concerning for scarring/fibrosis. Additional opacities in the right lower lobe most likely due to atelectasis or scarring and clinical correlation and follow-up is recommended. ACTIONABLE ITEMS/RECOMMENDATIONS*: See impression. Narrative 01/08/2024 7:30 AM MINE SUPERVISOR FULL RESULT: Examination: CT CHEST WO CONTRAST [...] recommended. ACTIONABLE ITEMS/RECOMMENDATIONS*: See impression. Marbella GRAJEDA Laurence CT ORDERABLES * (ABNORMAL) POC Creatinine (01/07/2024 3:57 PM MINE SUPERVISOR) Pathologist [facility] POC Creatinine 1.9(H) 0.6 - 1.3 mg/dL 01/07/2024 4:00 PM [facility] Comment:Medications, especia lly hydroxyurea or supplements, such as ascorbate, can interfere with test results causing a falsely and significantly higher result than expected. If a problem is suspected with a patient's result, a sample should be sent to the laboratory for confirmatory testing. POC eGFR 35(L) >=60 mL/min/1.7 3 sq. m 01/07/2024 4:00 PM [facility] Comment: The eGFRcr is calculated with [...] criteria for CKD. Blood 01/07/2024 3:57 PM MINE SUPERVISOR 01/07/2024 4:00 PM MINE SUPERVISOR [facility] 01/07/2024 4:00 PM MINE SUPERVISOR Method description: The i-STAT is an analyzer [...] Sutherland MD POCT ORDERABLES - DE VICE [facility] COUNTYLINE [address] [facility] [address] [facility], [facility] [address] [place] [address] * OSI Interventional (12/19/2023 11:58 PM MINE SUPERVISOR) Only the most recent of2 resultswithin the time period is included. Narrative Systemgenerated, Documentation - 01/09/2024 11:58 PM MINE SUPERVISOR Study acquired at another institution. For comparison only. No MD Navarrete originated interpretation requested or available. Dashawn Sutherland MD IMG OUTSIDE IMAGE OR DERABLES * OSI CT Chest (12/09/2023 11:57 PM MINE SUPERVISOR) Narrative Systemgenerated, Documentation - 01/09/2024 11:57 PM MINE SUPERVISOR Study acquired at another institution. For comparison only. No MD Navarrete originated interpretation requested or available. Dashawn Sutherland MD IMG OUTSIDE IMAGE OR DERABLES * OSI CT Abdomen and Pelvis (12/09/2023 11:57 PM MINE SUPERVISOR) Narrative Systemgenerated, Documentation - 01/09/2024 11:57 PM MINE SUPERVISOR Study acquired at another institution. For comparison only. No MD Navarrete originated interpretation requested or available. Dashawn Sutherland MD IMG OUTSIDE IMAGE OR DERABLES * Pathology Outside Interpretation (12/09/2023) Only the most recent of2 resultswithin the time period is included. Materials Received Accession#, Stained, Block, Unstained Collected Received A. [id number], 4 SS, 0 BLOCKS, 0 USS 12/09/2023 01/14/2024 01/15/2024 11:40 AM MINE SUPERVISOR [facility] Diagnosis Received 4 slides ([id number]) designated common bile duct, brushing: Rare atypical cell clusters 01/15/2024 11:40 AM MINE SUPERVISOR [facility] Comment Scant cellularity precludes a more definitive characterization. See also the [facility] review ([id number]) of the concurrent biopsy. 01/15/2024 11:40 AM MINE SUPERVISOR [facility] Disclaimer "Some tests reported here may have been developed and performance characteristics determined by [facility] Pathology and Laboratory Medicine. These tests have not been specifically cleared or approved by the U.S. Food and Drug Administration. If applicable, controls were reviewed and showed appropriate reactivity." 01/15/2024 11:40 AM MINE SUPERVISOR [facility] Tissue 12/09/2023 01/14/2024 11: 40 AM MINE SUPERVISOR Ralf Pierce LAB PATHOLOGY ORDERA BLES [facility] [id number] [place] [address], after 07/05/2023 Advance Directives * Full Code (Latest Code Status on File) Date Activated Date Inactivated Comments 07/04/2024 6:58 PM * Full Code Date Activated Date Inactivated Comments 05/12/2024 5:09 PM 05/29/2024 5:06 PM Care Teams Skid Man Relationship Specialty Start Date End Date Al Carrasco MD [address] [address] [email or web address] PCP - External Follow Up A General Surgery 12/26/23 Dashawn Sutherland MD [address] [place], [place] [id number] [email or web address] PCP - General Gastrointestinal Medical Oncology 01/05/24 Al Quick IV, MD [address] [place] [address] [email or web address] Consulting Physician Urology 04/09/24
== END 2024-07-04 10:32 ==
LOC: ER 06:57
DX: N13.2 Hydronephrosis with renal and ureteral calculous obstruction (principal); R65.21 Severe sepsis with septic shock; D64.9 Anemia, unspecified; R11.10 Vomiting, unspecified; I10 Essential (primary) hypertension; E03.9 Hypothyroidism, unspecified; Z11.52 Encounter for screening for COVID-19; Z79.01 Long term (current) use of anticoagulants; Z79.82 Long term (current) use of aspirin; Z85.038 Personal history of other malignant neoplasm of large intestine; Z85.89 Personal history of malignant neoplasm of other organs and systems
CPT/HCPCS: 93005; 87040 ×2; 87070; 85025; 81001; 80048; 36415; 83735; 85610; 80076; 87081; 83605; 84484; 83880; 87804 ×2; 71250; 74176; 71045; 99285; 87811; J3475; J2185; J1720; J7050; J7030 ×2

== ENCOUNTER 2024-07-27 13:03 | Emergency (ER) | payer OTHER ==
--- OUTSIDE RECORDS SUMMARY | 2024-07-27 13:11 | XMS REPORT | Clinical Summary ---
Author Name Unknown Organization [facility] [place] Address [address] [place] [address] Care Team Providers Care Multi Site Leasing Consultant Name Role Phone Al Carrasco MD Unavailable [phone] Dashawn Sutherland MD Primary Care Provider [phone] Ynes RUBI MD, Al Hay Unavailable [phone] Allergies Active Allergy Reactions Criticality Noted Date Comments Morphine Anaphylaxis,Other (S ee Comments),Shortness Of Breath High 11/21/2015 Hypotention Sulfur Nausea And Vomiting High 12/08/2023 Medications Medication Sig Dispensed Refills Start Date End Date Status metoprolol tartrate (LOPRESSOR) 50 mg tablet Take 1 tablet (50 mg) by mouth daily. 06/09/20 23 Active losartan (COZAAR) 100 mg tablet Take 1 tablet (100 mg) by mouth daily. Taking 50mg am/ and 50mg at night 06/09/20 23 Active glimepiride (AMARYL) 2 mg tablet Take 2 tablets (4 mg) by mouth twice daily. 11/20/19 24 Active latanoprost (XALATAN) 0.005% ophthalmic solution Administer 1 drop to both eyes daily. 10/16/20 23 Active tamsulosin (FLOMAX) 0.4 mg 24 hr capsule Take 1 capsule (0.4 mg) by mouth daily. 06/10/20 23 Active simvastatin (ZOCOR) 20 mg tablet Take 2 tablets (40 mg) by mouth at bedtime. 11/20/19 24 Active lidocaine-prilocaine (EMLA) 2.5-2.5% creamIndications:Cho langiocarcinoma of biliary tract, NOS Apply lidocaine to port 30 minutes before access 30 g 03/22/20 24 Active ezetimibe (ZETIA) 10 mg tablet Take 1 tablet (10 mg) by mouth at bedtime. 12/10/19 24 Active aspirin 81 mg chewable tabletIndications:Co ronary artery disease due to calcified coronary lesion Chew 1 tablet (81 mg) daily. 05/28/20 24 Active pantoprazole (Protonix) 40 mg EC tabletIndications:Up per gastrointestinal bleeding,Melena Take 1 tablet (40 mg) by mouth 2 (two) times a day before meals. 180 tablet 05/28/20 24 Active levothyroxine (SYNTHROID, LEVOTHROID) 100 mcg tabletIndications:Hy pothyroidism, not otherwise specified Take 1 tablet (100 mcg) by mouth daily. 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 30 tablet 11 06/01/20 24 025 Active sodium chloride (NS) 0.9% flush syringe 10 mLIndications:Cholan giocarcinoma of biliary tract, NOS Inject 10 mL (1 syringe) into each lumen of central venous catheter daily as directed. 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 For external use only. 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 Do not take if systolic blood pressure (upper number) is less than 120 30 tablet 07/09/20 24 Active traMADol (Ultram) 50 mg tabletIndications:Po stoperative pain Take 1 tablet (50 mg) by mouth every 8 (eight) hours as needed for moderate pain. 5 tablet 07/20/20 24 Active levothyroxine (SYNTHROID, LEVOTHROID) 75 mcg tablet Take 1 tablet (75 mcg) by mouth daily. 11/20/19 24 024 Discontinued(St op Taking at Discharge) OMEGA-3 FATTY ACIDS-VITAMIN E ORAL Take 1 g by mouth. 024 Discontinued ursodiol (ACTIGALL) 500 mg tablet Take 1 tablet (500 mg) by mouth 3 (three) times a day. 12/10/19 24 024 Discontinued carvedilol (COREG) 12.5 mg tablet Take 1 tablet (12.5 mg) by mouth daily. 12/10/19 24 024 Discontinued pantoprazole (PROTONIX) 40 mg EC tablet Take 1 tablet (40 mg) by mouth every morning before breakfast. 12/25/19 24 024 docusate sodium (COLACE) 100 mg capsule Take 1 capsule (100 mg) by mouth twice daily. 12/24/19 24 024 Discontinued ondansetron (Zofran) 8 mg tabletIndications:Ch olangiocarcinoma of biliary tract, NOS Take 1 tablet (8 mg) by mouth every 8 (eight) hours as needed for nausea or vomiting (First choice). 30 tablet 5 01/25/20 24 024 Discontinued(Ot her/Not Applicable) prochlorperazine (COMPAZINE) 10 mg tabletIndications:Ch olangiocarcinoma of biliary tract, NOS Take 1 tablet (10 mg) by mouth every 6 (six) hours as needed for nausea or vomiting (Second choice). 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 30 capsule 03/01/20 24 024 Discontinued(Re order) clopidogrel (PLAVIX) 75 mg tablet Take 1 tablet (75 mg) by mouth daily. 024 Discontinued(St op Taking at Discharge) cephalexin (KEFLEX) 500 mg capsule Take 1 capsule (500 mg) by mouth twice daily. 05/05/20 24 024 Discontinued(St op Taking at Discharge) Iron 100 Plus [phone] qr-gn-cme-mg tab Take 1 tablet by mouth daily. 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 30 capsule 06/03/20 24 024 Discontinued cephalexin (KEFLEX) 500 mg capsuleIndications:C alculus of kidney and ureter Take 1 capsule (500 mg) by mouth twice daily. 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 TAKE 1 CAPSULE IN THE MORNING 30 capsule 07/07/20 24 024 Discontinued(Re order) Active Problems Patient Care Coordination No te [...] Cancer Staging:Clinical:Stage IIIB(cT4, cN0, cM0) - Unsigned Bilateral hearing loss 12/23/2023 Encounters Date Type Department Care Team Description 07/27/2024 10:00 AM CDT Infusion [facility] - Infusion [address] [place] [address] Marbella Pereira PA Bradley, Jeannen E, RN Cholangiocarcinoma (Primary Dx) 07/26/2024 1:00 PM CDT Ancillary Procedure [facility] [address] [place] [address], 7th [place] [address] Arrived 07/26/2024 11:17 AM CDT Anesthesia Event Pre-Op/Surgery Check-In [address] [place] [address], [address]th [place] [address] Rudy Slade MD Kee, MD [place] 07/26/2024 9:35 AM CDT - 07/26/2024 11:20 AM CDT Surgery Pre-Op/Surgery Check-In [address] [place] [address], 4th [place] [address] Jac Craig MD PORT-A-CATH PLACEMENT 07/26/2024 8:50 AM CDT Ancillary Procedure MAIN OR [address] [place] [address] Lili Boss APRN Arrived 07/26/2024 8:40 AM CDT Ancillary Procedure [facility] Out[facility] [address] [place] [address], [address] [place] [address] Malignant neoplasm of intrahepatic bile ducts 07/26/2024 8:35 AM CDT Ancillary Procedure Pre-Op/Surgery Check-In [address] [place] [address], [address] [place] [address] Jac Craig MD Arrived 07/26/2024 8:05 AM CDT - 07/26/2024 2:00 PM CDT Hospital Encounter Pre-Op/Surgery Check-In [address] [place] [address], [address] [place] [address] Jac Craig MD Cholangiocarcinoma (Primary Dx) Discharge Disposition: Home 07/26/2024 7:20 AM CDT Hospital Encounter Diagnostic Laboratory Center [address] [place] [address] Lili oBss, MANAGER SOCIAL Preoperative laboratory examination 07/26/2024 Travel 07/23/2024 4:30 PM CDT POEM Appointments Perioperative Evaluation and Management Center [address] [place] [address], 6th [place] [address] Dashawn Sutherland MD Pre-surgery evaluation 07/21/2024 8:30 AM CDT Follow-Up [facility] - Medical Oncology [address] [place] [address] Dashawn Sutherland MD Cholangiocarcinoma (Primary Dx) 07/21/2024 Orders Only Gastrointestinal Center [address] [place] [address], 7th [place] [address] Dashawn Sutherland MD 07/20/2024 3:00 PM CDT Telemedicine Genit[facility] Cancer Center [address] [place] [address], 7th [place] [address] Al Quick IV, MD Calculus of kidney and ureter (Primary Dx) 07/20/2024 9:53 AM CDT - 07/20/2024 11:59 PM CDT Hospital Encounter Vascular Access and Procedures Center [facility], 8th [place] [address] Marbella Pereira PA Espiritu, Marichelle A, RN Encounter for adjustment and management of vascular access device (Primary Dx); Cholangiocarcinoma of biliary tract, NOS; Preoperative laboratory examination; Postoperative pain Discharge Disposition: Home 07/20/2024 Travel 07/16/2024 11:30 AM CDT Ancillary Procedure MD Landon Ashraf [address] [place] [address] Al Quick IV, MD Calculus of kidney and ureter 07/16/2024 8:30 AM CDT Ancillary Procedure MD Landon Meléndez [address] [address] Marbella Pereira PA Cholangiocarcinoma 07/13/2024 10:15 AM CDT Infusion MD [facility] - Infusion [address] [place] [address] Marbella Pereira PA Alegado, Reynaldo F Jr., RN Cholangiocarcinoma (Primary Dx); Cholangiocarcinoma of biliary tract, NOS 07/13/2024 Travel 07/12/2024 Orders Only MD Landon Ashraf - Medical Oncology [address] [place] [address] Marbella Pereira PA 07/05/2024 8:00 PM CDT Ancillary Procedure [facility] [address] [place] [address] Nery Rasheed MD 07/04/2024 8:00 PM CDT Ancillary Procedure [facility] [address] [place] [address] Nery Rasheed MD 07/04/2024 11:21 AM CDT - 07/08/2024 11:36 AM CDT Hospital Encounter MAIN P04A [address] [place] [address] Nery Rasheed MD Musaelyan, Arine, MD Etchegaray-Langl y, Mikel, MD Muthu Hiltonruth ann, DO Sepsis (Primary Dx); Fever; Cholangiocarcinoma; Liver enzymes level above reference range; Cholangiocarcinoma of biliary tract, NOS; 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; Calculus of kidney and ureter; Malnutrition of moderate degree; Dieulafoy lesion of duodenum; Upper gastrointestinal bleeding; Acute posthemorrhagic anemia; Melena; Obstructive sleep apnea syndrome; Hypertension; Coronary artery disease due to calcified coronary lesion; Pancytopenia; COVID-19; History of insertion of stent into ureter; Nephrolithiasis; Bacteremia caused by Gram-negative bacteria; Calculus of ureter Discharge Disposition: Home 07/04/2024 Travel 07/03/2024 Refill Gastrointestinal Center [address] [place] [address], 7th [facility] [place] [address] Marbella Pereira PA Cholangiocarcinoma of biliary tract, NOS; 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 06/29/2024 10:15 AM CDT Infusion MD [facility] [place] - [facility]fusion [address] [facility] 4th [place] [address] Marbella Pereira PA Pierce, Alyssa O, RN Cholangiocarcinoma (Primary Dx); Cholangiocarcinoma of biliary tract, NOS 06/29/2024 Orders Only Gastrointestinal Center [address] [place] [address], 7[address] [place] [address] Marbella Pereira PA 06/29/2024 Travel 06/28/2024 Case Management Case Management [address] [place] [address] Lo Jarvis, TORREY 06/23/2024 11:59 PM CDT Anesthesia Event Perioperative Evaluation and Management Center [address] [place] [address] Fátima Alves RN 06/23/2024 11:59 PM CDT Anesthesia Event Perioperative Evaluation and Management Center [address] [place] [address] [place] [address] Fátima Alves, TORREY 06/23/2024 Orders Only Genitourinary Cancer Center [address] [place] [address], [facility] Floor [facility] [place] [address] Al Quick IV, MD 06/23/2024 Orders Only Gastrointestinal Center [address] [place] [address], [address] [place] [address] Marbella Pereira PA Cholangiocarcinoma (Primary Dx) 06/23/2024 Telephone Vascular Access and Procedures Center [address] [place] [address], [facility] [place] [address] Lili Boss APRN 06/22/2024 Case Management Case Management [address] [place] [address] Jade Ku RN 06/22/2024 Prep for Surgery Vascular Access and Procedures Center [address] [place] [address], [address] [place] [address] Lili Boss, ANNAMARIA Cholangiocarcinoma (Primary Dx); Pre-surgery evaluation 06/21/2024 3:00 PM CDT Telemedicine [facility] - Medical Oncology [address] [place] [address] Dashawn Sutherland MD Cholangiocarcinoma of biliary tract, NOS 06/21/2024 Orders Only Gastrointestinal Center [address] [place] [address], [address] [place] [address] Dashawn Sutherland MD 06/21/2024 Orders Only [place] [facility] [place] [facility] [address] [place] [address] Marbella Pereira PA Cholangiocarcinoma (Primary Dx) 06/21/2024 Orders Only MD [facility] [place] - Medical Oncology [address] [place] [address] Marbella Pereira PA Cholangiocarcinoma (Primary Dx) 06/20/2024 Orders Only [facility] Cancer Center [address] [place] [address], 7th [place] [address] Al Quick IV, MD Calculus of kidney and ureter (Primary Dx) 06/19/2024 8:00 AM CDT - 06/19/2024 10:35 AM CDT Surgery MAIN OR [address] [place] [address] Al Quick IV, MD CYSTOURETHROSCOPY WITH URETEROROSCOPY &/OR PYELOSCOPY, W/ REMOVAL/MANIPULATION OF CALCULUS 06/19/2024 7:56 AM CDT Anesthesia Event MAIN OR [address] [place] [address] Donnell Griffin MD Staes, Robert A II, [facility] 06/19/2024 5:55 AM CDT - 06/19/2024 1:34 PM CDT Hospital Encounter MAIN OR [address] [place] [address] lA Quick IV, MD Calculus of kidney and ureter Discharge Disposition: Home 06/19/2024 Orders Only Genitourinary Cancer Center [address] [facility], [facility] [place] [address] Al Quick IV, MD Calculus of kidney and ureter (Primary Dx) 06/19/2024 Travel 06/18/2024 8:00 AM CDT POEM Appointments Perioperative Evaluation and Management Center [address] [place] [address], [address] [place] [address] Dashawn Sutherland MD 06/18/2024 Case Management Case Management [address] [place], [place] [phone] Jade Ku RN 06/17/2024 11:59 PM CDT Anesthesia Event Perioperative Evaluation and Management Center [address] [place] [address], [address] [place], [place] [phone] Fátima Alves RN 06/15/2024 8:00 AM CDT Infusion MD [facility]fusion [address] [place] [address] Marbella Pereira PA Sullivan, Paula F, RN Cholangiocarcinoma (Primary Dx) 06/15/2024 Orders Only Gastrointestinal Center [address] [place] [address], 7th [place] [address] Marbella Pereira PA Cholangiocarcinoma of biliary tract, NOS (Primary Dx) 06/15/2024 Travel 06/14/[address] [address] Kianna Vieyra, TORREY 06/14/[address] [address] Magnolia Spencer MA 06/11/2024 4:00 PM CDT Clinical Support MD [facility] - Infusion [address] [place] [address] [address] [place] [address] Marbella Pereira PA Cholangiocarcinoma of biliary tract, NOS 06/11/2024 Travel 06/10/2024 Nurse Triage [facility] PHYSICIAN [address] [place] [address] Sujatha James RN 06/08/2024 Orders Only [facility] - Medical Oncology [address] [place] [address] Marbella Pereira PA Cholangiocarcinoma of biliary tract, NOS (Primary Dx) 06/07/2024 11:21 AM CDT - 06/07/2024 11:59 PM CDT Hospital Encounter Vascular Access and Procedures Center [address] [place] [address], 8th [place] [address] Dashawn Sutherland MD Kim, Diana J film library clerk Disposition: Home 06/07/2024 8:36 AM CDT - 06/07/2024 11:20 AM CDT Hospital Encounter Vascular Access and Procedures Center [address] [place] [address], 8th [place] [address] Marbella Pereira PA Naig, Adam R. Jr., RN Elvia Blount MA Eads, Kathie Dang APRN,AGACNP Cholangiocarcinoma of biliary tract, NOS Discharge Disposition: Home 06/07/2024 8:34 AM CDT - 06/07/2024 8:35 AM CDT Hospital Encounter Diagnostic Imaging Center [facility] Main dg, 3rd [place] [address] Encounter for adjustment and management of vascular access device Discharge Disposition: Home 06/07/2024 6:54 AM CDT - 06/07/2024 8:33 AM CDT Hospital Encounter Vascular Access and Procedures Center [address] [place] [address] Main dg, 8th [place] [address] Marbella Pereira PA Mangulabnan, Joseph B, RN Encounter for adjustment and management of vascular access device (Primary Dx); Cholangiocarcinoma of biliary tract, NOS Discharge Disposition: Home 06/07/2024 6:15 AM CDT - 06/07/2024 6:53 AM CDT Hospital Encounter Diagnostic Laboratory Center [address] [place] [address], [place] [address] Marbella Pereira PA Encounter for adjustment and management of vascular access device Discharge Disposition: Home 06/07/2024 Education Vascular Access and Procedures Center [facility] Main [facility], 8th [place] [address] Brody Palumbo RN 06/07/2024 Travel 06/04/2024 9:40 AM CDT - 06/04/2024 11:59 PM CDT Hospital Encounter Vascular Access and Procedures Center [address] [place] [address] Main [facility], 8th [place] [address] Dashawn Sutherland MD Discharge Disposition: Home 06/04/2024 Nurse Only Vascular Access and Procedures Center [facility] Main [facility], 8th [place] [address] Jacey Hui, TORREY Encounter for adjustment and management of vascular access device (Primary Dx) 06/03/2024 Orders Only Gastrointestinal Center [facility] Main [facility], 7th [place] [address] Marbella Pereira PA Cholangiocarcinoma of biliary tract, NOS (Primary Dx) 06/03/2024 Orders Only G[facility] Center [address] [place] [address], 7th [place] [address] Marbella Pereira PA Cholangiocarcinoma of biliary tract, NOS; 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 06/02/2024 9:30 AM CDT Infusion MD [facility]fusion [address] [place] [address] Marbella Pereira PA Monroe, Celine M, RN Cholangiocarcinoma (Primary Dx) 06/02/2024 Telephone [facility] [address] [facility], Floor 7 [place] [address] Karen Helton RN 06/02/2024 Orders Only Gastrointestinal Center [address] [place] [address], 7th [place] [address] Cassandra Kiran RPH 06/02/2024 Orders Only MD [facility] - Medical Oncology [address] [place] [address] Marbella Pereira PA 06/01/2024 Orders Only [facility] [address] [place] [address] Graeme Suarez MD 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) 05/31/2024 10:00 AM CDT Follow-Up [facility] Medical Oncology [address] [place] [address] Dashawn Sutherland MD Cholangiocarcinoma of biliary tract, NOS 05/31/2024 Telephone [facility] [address] [place] [address] Cece Gaytan, film library clerk Call 05/31/2024 Travel 05/28/2024 Orders Only Genitourinary Cancer Center [address] [place] [address], 7th [place] [address] Al Quick IV, MD Calculus of kidney and ureter (Primary Dx) 05/27/2024 9:29 AM CDT Anesthesia Event Endoscopy Center [address] [place] [address] Main Bldg, 5th [place] [address] Parris Moya MD Koo, Linda, CRNA 05/27/2024 7:45 AM CDT - 05/27/2024 8:35 AM CDT Surgery [facility] [address] [place] [address] Main Bldg, 5th [place] [address] Alan Griffith MD DIAGNOSTIC UPPER GASTROINTESTINAL ENDOSCOPY 05/26/2024 Prep for Surgery [facility] - Gastroenterology, Hepatology & Nutrition [address] [place] [address] Main Bldg, 7th [place] [address] Anna Braun PA Melena (Primary Dx); Anemia, not otherwise specified; Dieulafoy lesion of duodenum 05/25/2024 Travel 05/21/2024 2:07 PM CDT Anesthesia Event Endoscopy Center [address] [place] [address] Main dg, 5th [place] [address] Estrellita Gillespie MD Silva, Jason M, CRNA 05/21/2024 1:00 PM CDT - 05/21/2024 2:00 PM CDT Surgery [facility] [address] [place] [address] Main dg, 5th [place] [address] Lizbet Magana MD DIAGNOSTIC UPPER GASTROINTESTINAL ENDOSCOPY 05/19/2024 Prep for Surgery [facility] - Gastroenterology, Hepatology & Nutrition [address] [place] [address] Main dg, 7th [place] [address] Anna Braun PA Melena (Primary Dx); Anemia, not otherwise specified 05/17/2024 Orders Only MD [facility] - Medical Oncology [address] [place] [address] Marbella Pereira PA 05/14/2024 Orders Only MD [facility] - Medical Oncology [address] [place] [address] Marbella Pereira PA Cholangiocarcinoma of biliary tract, NOS (Primary Dx) 05/13/2024 Travel 05/12/2024 2:29 PM CDT - 05/29/2024 3:06 PM CDT Hospital Encounter MAIN [address]SW [address] [place] [address] Vicki Lewis MD Ali, Aliasger, MD Sahar, Hadeel, MD Manzano, Joanna-Grace, MD Kheder, Ed, Stephen Booker MD Nguyen, Son V., MD E coli infection (Primary Dx); Upper gastrointestinal bleeding; Nephrolithiasis; Coronary artery disease due to calcified coronary lesion; Hypothyroidism, not otherwise specified; Melena Discharge Disposition: Home 05/12/2024 Telephone MD [facility] - Cardiology [address] [place] [address] Magnolia Spencer MA 05/12/2024 Travel 05/07/2024 Telephone Cardiopulmonary Center [address] [facility] Main Bldg, 6th [place] [address] Kenisha Medel RN 05/06/2024 Orders Only Gastrointestinal Center [address] [facility] Main Bldg, 7th [place] [address] Marbella Pereira PA 05/04/2024 9:00 AM CDT Infusion MD [facility] - Infusion [address] [place] [address] Marbella Pereira PA Monroe, Celine M RN Cholangiocarcinoma of biliary tract, NOS (Primary Dx) 05/04/2024 Orders Only [facility] [address] [facility] Main Bldg, 7th [place] [address] Marbella Pereira PA Cholangiocarcinoma of biliary tract, NOS (Primary Dx) 05/04/2024 Travel 04/28/2024 Documentation Cardiopulmonary Center [address] Main Bldg, 6th [place] [address] Gem Schmidt 04/26/2024 2:00 PM CDT Telemedicine MD [facility] - Medical Oncology [address] [place] [address] Dashawn Sutherland MD Cholangiocarcinoma of biliary tract, NOS (Primary Dx); Cholangiocarcinoma 04/26/2024 Orders Only [facility] [facility] [address] [place] [address] Marbella Pereira PA 04/26/2024 Telephone Formerly [facility] Medicine [address] [facility], Floor 7 [place] [address] Karen Helton RN 04/20/2024 9:00 AM CDT Infusion [facility] - Infusion [address] [place] [address] Marbella Pereira PA Tran, Nancy K, RN Cholangiocarcinoma of biliary tract, NOS (Primary Dx) 04/20/2024 Travel 04/09/2024 10:30 AM CDT Consult [facility] [address] [place] [address], 7th [place] [address] Al Quick IV, MD Calculus of kidney and ureter; Cholangiocarcinoma of biliary tract, NOS 04/09/2024 Prep for Surgery [facility] [address] [place] [address], 7th [place] [address] Tamara Schmid APRN Calculus of ureter (Primary Dx) 04/09/2024 Travel 04/06/2024 2:10 PM CDT Ancillary Procedure [address] [address] Marbella Pereira PA Cholangiocarcinoma of biliary tract, NOS 04/06/2024 8:00 AM CDT Infusion [facility] - Infusion [address] [place] [address] Marbella Pereira PA Thomas, Alice, RN Cholangiocarcinoma of biliary tract, NOS (Primary Dx) 04/06/2024 Travel 03/31/2024 10:00 AM CDT Follow-Up [facility] Medical Oncology [address] [place] [address] Dashawn Sutherland MD Cholangiocarcinoma of biliary tract, NOS (Primary Dx) 03/31/2024 Travel 03/25/2024 Orders Only [facility] Oncology [address] [place] [address] Marbella Pereira PA Cholangiocarcinoma of biliary tract, NOS (Primary Dx) 03/11/2024 Orders Only [facility] [address] [place] [address] Main Bldg, 7th [place] [address] Marbella Pereira PA 03/09/2024 9:00 AM CDT Infusion [facility] Infusion [address] [place] [address] Marbella Pereira PA Aarti Gould RN Cholangiocarcinoma of biliary tract, NOS (Primary Dx) 03/09/2024 Travel 03/01/2024 10:30 AM CDT Follow-Up [facility] Oncology [address] [place] [address] Dashawn Sutherland MD Cholangiocarcinoma of biliary tract, NOS (Primary Dx); 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 03/01/2024 Travel 02/24/2024 9:00 AM CDT Infusion [facility] - [address] [address] Marbella Pereira PA Brioso, Cecille, RN Cholangiocarcinoma of biliary tract, NOS (Primary Dx) 02/24/2024 Orders Only [facility] [address] [place] [address] Main Bldg, 7th [place] [address] Dashawn Sutherland MD Cholangiocarcinoma of biliary tract, NOS (Primary Dx) 02/24/2024 Travel 02/10/2024 9:00 AM CDT Infusion [address] [address] Dashawn Sutherland MD Thomas, Alice, RN Cholangiocarcinoma of biliary tract, NOS (Primary Dx) 02/10/2024 Travel 02/06/2024 Orders Only [facility] Oncology [address] [place] [address] Marbella Pereira PA Cholangiocarcinoma of biliary tract, NOS (Primary Dx); Hydronephrosis, not otherwise specified; Calculus of ureter 02/06/2024 Orders Only [facility] Oncology [address] [place] [address] Marbella Pereira PA Cholangiocarcinoma of biliary tract, NOS (Primary Dx) 02/05/2024 10:20 AM CDT Ancillary Procedure [address] [address] Marbella Pereira PA Cholangiocarcinoma of biliary tract, NOS; Right lower quadrant pain 02/05/2024 Travel 02/03/2024 Orders Only [facility] [address] [place] [address] Main dg, 7th [place] [address] Marbella Pereira PA 02/02/2024 2:00 PM CDT Telemedicine [facility] Oncology [address] [place] [address] Dashawn Sutherland MD Right lower quadrant pain (Primary Dx); Cholangiocarcinoma of biliary tract, NOS 01/30/2024 Orders Only [facility] [address] [place] [address] Main dg, 7th [place] [address] Reggie Suarez, [facility] 01/28/2024 Telephone [facility] - Infusion [address] [place] [address] Cameron Caban Jr., RN Follow-up 01/27/2024 10:00 AM CDT Infusion [facility] - Infusion [address] [place] [address] Dashawn Sutherland MD Alegado, Reynaldo F Jr., RN Cholangiocarcinoma of biliary tract, NOS (Primary Dx) 01/27/2024 Documentation [facility] [address] [facility] Main Bldg, 6th [place] [address] Gem Schmidt 01/27/2024 Travel 01/26/2024 1:15 PM CDT Ancillary Procedure [facility] [address] [place] [address], [place] [address] Marbella Pereira PA Cholangiocarcinoma of biliary tract, NOS 01/26/2024 Documentation [facility] Oncology [address] [place] [address], [place] [address] Marbella Pereira PA 01/26/2024 Orders Only [facility] Oncology [address] [place] [address] Marbella Pereira PA 01/26/2024 Travel 01/20/2024 Orders Only [facility] Oncology [address] [place] [address] Marbella Pereira PA Cholangiocarcinoma of biliary tract, NOS (Primary Dx) 01/20/2024 Orders Only [facility] [address] Main Bldg, 7th [place] [address] Marbella Pereira PA Cholangiocarcinoma of biliary tract, NOS (Primary Dx) 01/20/2024 Documentation [facility] [address] Main Bldg, 6th [place] [address] Gem Schmidt 01/20/2024 Orders Only [facility] [address] Main Bldg, 6th [place] [address] Jose Finch MD Immunotherapy for cancer (Primary Dx) 01/20/2024 Orders Only [facility] Oncology [address] [place] [address] Marbella Pereira PA 01/19/2024 3:00 PM UTILITY OPERATOR YARN Follow-Up [facility] Oncology [address] [place] [address] Dashawn Sutherland MD Cholangiocarcinoma of biliary tract, NOS (Primary Dx) 01/19/2024 Orders Only [facility] [address] Main Bldg, 7th [place] [address] Ney Sierra [facility] 01/19/2024 Travel 01/16/2024 5:00 PM UTILITY OPERATOR YARN - 01/16/2024 11:59 PM UTILITY OPERATOR YARN Hospital Encounter [facility] [address] [facility], 8th [place] [address] Dashawn Sutherland MD Zarate, Iris Davidson, film library clerk Disposition: Home 01/16/2024 4:15 PM UTILITY OPERATOR YARN Ancillary Procedure [facility] MRI [address] [facility], 4th [place] [address] Marbella Pereira PA Cholangiocarcinoma of biliary tract, NOS 01/16/2024 Travel 01/14/2024 Telephone [facility] [address] [place] [address] Isreal Ngo RN 01/14/2024 Orders Only [facility] - Medical Oncology [address] [place] [address] Marbella Pereira PA Cholangiocarcinoma of biliary tract, NOS (Primary Dx) 01/14/2024 Travel 01/14/2024 Lab Requisition [facility] Ryan Loredo MD Raza, Roshan 01/14/2024 Lab Requisition [facility] Ryan Loredo MD Jain, MD Shilpa 01/12/2024 Telephone [facility] [address] [place] [address] Magnolia Spencer MA 01/09/2024 11:30 PM UTILITY OPERATOR YARN Ancillary Procedure [facility] [address] [place] [address] Dashawn Sutherland MD Cancer 01/09/2024 11:25 PM UTILITY OPERATOR YARN Ancillary Procedure [facility] [address] [place] [address] Dashawn Sutherland MD Cancer 01/09/2024 11:20 PM UTILITY OPERATOR YARN Ancillary Procedure [facility] [address] [place] [address] Dashawn Sutherland MD Cancer 01/09/2024 11:15 PM UTILITY OPERATOR YARN Ancillary Procedure [facility] [address] [place] [address] Dashawn Sutherland MD Cancer 01/09/2024 Orders Only [facility] Oncology [address] [place] [address] Marbella Pereira PA 01/08/2024 Orders Only [facility] Oncology [address] [place] [address] Marbella Pereira PA Cholangiocarcinoma of biliary tract, NOS (Primary Dx) 01/07/2024 2:35 PM UTILITY OPERATOR YARN Ancillary Procedure [address] [address] Dashawn Sutherland MD Cholangiocarcinoma of biliary tract, NOS 01/07/2024 1:00 PM UTILITY OPERATOR YARN Office Visit [facility] Oncology [address] [place] [address] Dashawn Sutherland MD Cholangiocarcinoma of biliary tract, NOS (Primary Dx) 01/07/2024 12:30 PM UTILITY OPERATOR YARN NPR MDA PATIENT ACCESS 01/07/2024 Orders Only [facility] Oncology [address] [place] [address] Marbella Pereira PA Cholangiocarcinoma of biliary tract, NOS (Primary Dx) 01/07/2024 Travel 01/05/2024 Orders Only [facility] [address] [place] [address] Main [facility], 7th [place] [address] Dashawn Sutherland MD Cholangiocarcinoma of biliary tract, NOS (Primary Dx) 12/26/2023 Telephone [facility] [address] [place] [address] Main [facility], 7th [place] [address] Kristine Farias, RN after 07/28/2023 Surgical History Surgery Date Site/Laterality Comments COLONOSCOPY 2019 Clear CORONARY ARTERY BYPASS GRAFT 2013 URETERAL STENT PLACEMENT Right CORONARY ANGIOPLASTY WITH ST ENT PLACEMENT 03/10/2024 x2 CHOLECYSTECTOMY 06/09/2023 CATARACT EXTRACTION EXTRACAP SULAR W/ INTRAOCULAR LENS IMPLANTATION 11/17/2022 - 11/16/2023 Bilateral 08/2023 and 10/2023 BILE DUCT STENT PLACEMENT 12/23/2023 metal stent IA ESOPHAGOGASTRODUODENOSCOP Y TRANSORAL DIAGNOSTIC 05/21/2024 Esophagus/N/A Procedure: DIAGNOSTIC UPPER GASTROINTESTINAL ENDOSCOPY; Surgeon: Lizbet Magana MD; Location: MAIN ENDOSCOPY; Service: GASTROENTEROLOGY IA COLONOSCOPY FLX DX W/DEEPAK J SPEC WHEN PFRMD 05/21/2024 N/A Procedure: DIAGNOSTIC FLEXIBLE COLONOSCOPY PROXIMAL TO SPLENIC FLEXURE; Surgeon: Lizbet Magana MD; Location: MAIN ENDOSCOPY; Service: GASTROENTEROLOGY IA ESOPHAGOGASTRODUODENOSCOP Y TRANSORAL DIAGNOSTIC 05/27/2024 Esophagus/N/A Procedure: DIAGNOSTIC UPPER GASTROINTESTINAL ENDOSCOPY; Surgeon: Alan Griffith MD; Location: MAIN ENDOSCOPY; Service: GASTROENTEROLOGY IA GI TRC IMG INTRALUMINAL ESOPHAGUS-ILEUM W/I&R 05/27/2024 N/A Procedure: INTRALUMINAL GASTROINTESTINAL TRACT IMAGING OF ESOPHAGUS THROUGH ILEUM; Surgeon: Alan Griffith MD; Location: MAIN ENDOSCOPY; Service: GASTROENTEROLOGY IA GI TRC IMG INTRALUMINAL ESOPHAGUS-ILEUM W/I&R 05/27/2024 N/A Procedure: READING FOR INTRALUMINAL GASTROINTESTINAL TRACT IMAGING OF ESOPHAGUS THROUGH ILEUM; Surgeon: Alan Griffith MD; Location: MAIN ENDOSCOPY; Service: GASTROENTEROLOGY IA CYSTO W/URETEROSCOPY W/RMVL/MANJ STONES 06/19/2024 Ureter/Right Procedure: CYSTOURETHROSCOPY WITH URETEROROSCOPY &/OR PYELOSCOPY, W/ REMOVAL/MANIPULATION OF CALCULUS; Surgeon: Al Quick IV, MD; Location: MAIN OR; Service: UROLOGY Medical devices from this surgery are in the Medical Devices section. IA CYSTO W/URETEROSCOPY W/LITHOTRIPSY 06/19/2024 Ureter/Right Procedure: CYSTOURETHROSCOPY [...] finding Encounter for blood transfusion Sleep apnea CPAP nightly Family History Medical History Relation Name Comments [...] Sign Reading Time Taken Comments Blood Pressure 134/74 07/27/2024 10:51 AM CDT Pulse 91 07/27/2024 10:51 AM CDT Temperature 39.5 C (103.1 F) 07/27/2024 10:51 AM CDT nurse aware of temp Respiratory Rate 18 07/27/2024 10:5 1 AM CDT Oxygen Saturation 96% 07/27/2024 10: 51 AM CDT Inhaled Oxygen Concentration - - Weight 76.3 kg (168 lb 3.4 oz) 07/27/2024 10:47 AM CDT Height 165.1 cm (5' 5") 07/04/2024 8:01 PM CDT Body Mass Index 27.99 07/04/2024 8:01 PM CDT Plan of Treatment Upcoming Encounters Date Type Department Care Team (Late st Contact Info) Description 07/28/2024 2:00 PM CDT Appointment [facility]cology [address] [facility] Main Bl, 7th [place] [address] aMrbella Pereira PA [address] [place], [place] [phone] [email or web address] Montero MD [address] [place] [phone] [email or web address] 08/11/2024 11:00 AM CDT Telemedicine [place] [facility] [address] [place] [address] Dashawn Sutherland MD [address] [place] [address] [email or web address] 08/24/2024 8:00 AM CDT Lab MD [facility] [place] [facility] [address] [place] [address] [address] [place] [address] Marbella Pereira PA [address] [place] [phone] [email or web address] 08/24/2024 8:30 AM CDT Infusion [facility] - Infusion [address] [place] [address] Marbella Pereira PA [address] [place] [phone] [email or web address] 09/02/2024 12:45 PM CDT Consult [facility] [address] [place] [address], 6th [place] [address] Eugene Martinez MD [address] [place] [phone] [email or web address] 10/05/2024 3:15 PM UTILITY OPERATOR YARN Follow-Up [facility] - Gastroenterology, Hepatology & Nutrition [address] [place] [address] Main dg, 7th [place] [address] Jodie Manzo MD [address] [place] [address] [place] [address] [email or web address] Usama Pitt MD [facility] [place] [address] [email or web address] 10/06/2024 9:30 AM UTILITY OPERATOR YARN Follow-Up [facility] [address] [place] [address], 6th [place] [address] Graeme Suarez MD [address] [place] [phone] [email or web address] 02/15/2025 2:00 PM CDT Telemedicine [facility] [address] [facility], 7th [place] [address] Al Quick IV, MD [facility]5 [place] [address] [email or web address] Maintenance Due Date Last Done Comments Pneumococcal Vaccine: 65+ Ye ars (1 of 2 - PCV) 1951 COVID-19 Vaccine (3 - Moderna risk series) 01/23/2021 12/26/2020, 11/29/2020 Influenza Vaccine (#1) 2024 Medical Devices Implanted Type Area Sawdust Drier Device Identifier Shelf Expiration Date Model / Serial / Lot Port Implinfn Powerport Clrvu - Sn/A Implanted:Qty: 1 on 07/26/2024 by Jac Craig MD at [facility] Port Left: Internal Jugular [employer] [id number] 04/16/2025 [id number] / N/A / [id number] Description:CATHETER LENGTH- 27 CM Cardiac Stent Stent Description:Per MD [facility] policy conditional Biliary Stent- Implanted:12/19 (Quantity not on file) Stent Bile Duct Description:Placed in at [facility], Per in ok to proceed up to 3T on normal operating mode. Cleared on 01/16/24 @4:20pm Stent Ureteral Firm 6fr X 24cm - Sn/A Implanted:Qty: 1 on 06/19/2024 by Al Quick IV, MD at [facility] Stent Right: Ureter [employer] 12/01/2026 [id number] / N/A / [id number] Stent Right: Kidney Procedures Procedure Name Priority Date/Time Associated Diagnosis Comments .CBC Routine 07/27/2024 9:48 AM CDT Cholangiocarcin horaec CARCINOEMBRYONIC ANTIGEN Routine 9:48 AM CDT Cholangiocarcin horace CARBOHYDRATE ANTIGEN 19-9 Routine 2023 9:48 AM CDT Cholangiocarcin horace FREE THYROXINE Routine 07/27/2024 9:48 AM CDT Cholangiocarcin horace THYROID STIMULATING HORMONE Routine 07/18 9:48 AM CDT Cholangiocarcin horace COMPLETE BLOOD COUNT W/ DIFFERENTIAL Routine 07/27/2024 9:48 AM CDT Cholangiocarcin horace COMPREHENSIVE METABOLIC PANEL Routine 9:48 AM CDT Cholangiocarcin horace FL CENTRAL VENOUS PLACE EXCHANGE Routine 07/26/2024 3:03 PM CDT Malignant neoplasm of intrahepatic bile ducts XR CHEST 1 VW POST IMPLANT STAT 07/26 1:11 PM CDT POC GLUCOSE SCREEN Routine 07/26/2024 12:53 PM CDT VASCULAR ACCESS BUNDLE Routine 11:24 AM CDT POC GLUCOSE SCREEN Routine 07/26/2024 10:16 AM CDT US GUIDED CENTRAL LINE PLACEMENT Routine 07/26/2024 8:46 AM CDT INTRAOPERATIVE US STAT 07/26/2024 8:31 AM CDT DIFFERENTIAL Routine 07/26/2024 7:58 AM CDT Preoperative laboratory examination .CBC Routine 07/26/2024 7:58 AM CDT Preoperative laboratory examination COMPLETE BLOOD COUNT W/ DIFFERENTIAL Routine 07/26/2024 7:58 AM CDT Preoperative laboratory examination ELECTROLYTE PANEL Routine 07/26/2024 7:58 AM CDT Preoperative laboratory examination FREE THYROXINE Routine 07/26/2024 7:58 AM CDT Preoperative laboratory examination THYROID STIMULATING HORMONE Routine 07/2024 7:58 AM CDT Preoperative laboratory examination CREATININE Routine 07/26/2024 7:58 AM CDT Preoperative laboratory examination BLOOD UREA NITROGEN Routine 07/26/2024 7:58 AM CDT Preoperative laboratory examination US RENAL Routine 07/16/2024 11:00 AM CDT Calculus of kidney and ureter CT CHEST ABDOMEN PELVIS W WO CONTRAST Routine 07/16/2024 10:26 AM CDT Cholangiocarcin horace POC CREATININE Routine 07/16/2024 9:38 AM CDT DIFFERENTIAL Routine 07/13/2024 10:01 AM CDT Cholangiocarcin horace .CBC Routine 07/13/2024 10:01 AM CDT Cholangiocarcin horace COMPLETE BLOOD COUNT W/ DIFFERENTIAL Routine 07/13/2024 10:01 AM CDT Cholangiocarcin horace COMPREHENSIVE METABOLIC PANEL Routine 10:01 AM CDT Cholangiocarcin horace POC GLUCOSE SCREEN Routine 07/08/2024 8:09 AM CDT TYPE AND SCREEN Routine 07/08/2024 1:14 AM CDT SMOOTH MUSCLE ANTIBODY TITER Routine 10:21 PM CDT DIFFERENTIAL Routine 07/07/2024 10:21 PM CDT .CBC Routine 07/07/2024 10:21 PM CDT CERULOPLASMIN Routine 07/07/2024 10:21 PM CDT IMMUNOGLOBULIN M Routine 07/07/2024 10:21 PM CDT IMMUNOGLOBULIN G Routine 07/07/2024 10:21 PM CDT LIVER/KIDNEY MICROSOME 1 AB Routine 06/18 10:21 PM CDT SMOOTH MUSCLE ANTIBODY SCREEN Routine 10:21 PM CDT MITOCHONDRIAL AB M2 SERUM Routine 2023 10:21 PM CDT ANTINUCLEAR ANTIBODY HEP-2 SUBSTRATE IGG Routine 07/07/2024 10:21 PM CDT ALPHA 1 ANTRITRYPSIN SERUM Routine 07/07 10:21 PM CDT HEPATITIS C VIRUS RNA DETECT/QUANT, SERUM Routine 07/07/2024 10:21 PM CDT HEPATITIS C VIRUS ANTIBODY Routine 07/07 10:21 PM CDT HBV DNA QUANT Routine 07/07/2024 10:21 PM CDT HEPATITIS B CORE ANTIBODY Routine 2023 10:21 PM CDT HEPATITIS B CORE ANTIBODY IG M ACUTE TITER Routine 07/07/2024 10:21 PM CDT HEPATITIS B SURFACE ANTIBODY Routine 10:21 PM CDT HEPATITIS B SURFACE ANTIGEN Routine 06/18 10:21 PM CDT HEPATITIS A VIRUS PANEL Routine 07/07/20 10:21 PM CDT PROTHROMBIN TIME Routine 07/07/2024 10:21 PM CDT PHOSPHORUS LEVEL Routine 07/07/2024 10:21 PM CDT MAGNESIUM LEVEL Routine 07/07/2024 10:21 PM CDT COMPREHENSIVE METABOLIC PANEL Routine 10:21 PM CDT COMPLETE BLOOD COUNT W/ DIFFERENTIAL Routine 07/07/2024 10:21 PM CDT RETICULOCYTE COUNT AUTOMATED Routine 10:21 PM CDT HAPTOGLOBIN Routine 07/07/2024 10:21 PM CDT POC GLUCOSE SCREEN Routine 07/07/2024 9:53 PM CDT POC GLUCOSE SCREEN Routine 07/07/2024 7:13 PM CDT POC GLUCOSE SCREEN Routine 07/07/2024 12:46 PM CDT POC GLUCOSE SCREEN Routine 07/07/2024 8:01 AM CDT DIFFERENTIAL Routine 07/07/2024 2:14 AM CDT .CBC Routine 07/07/2024 2:14 AM CDT COMPLETE BLOOD COUNT W/ DIFFERENTIAL Routine 07/07/2024 2:14 AM CDT PHOSPHORUS LEVEL Routine 07/07/2024 2:13 AM CDT MAGNESIUM LEVEL Routine 07/07/2024 2:13 AM CDT COMPREHENSIVE METABOLIC PANEL Routine 2:13 AM CDT POC GLUCOSE SCREEN Routine 07/06/2024 8:22 PM CDT POC GLUCOSE SCREEN Routine 07/06/2024 6:25 PM CDT POC GLUCOSE SCREEN Routine 07/06/2024 1:17 PM CDT C. DIFFICILE DNA DETECTION Routine 07/06 8:40 AM CDT GASTROINTESTINAL MULTIPLEX PCR PANEL Routine 07/06/2024 8:40 AM CDT FECAL OCCULT BLOOD, STOOL Routine 2023 8:40 AM CDT POC GLUCOSE SCREEN Routine 07/06/2024 7:23 AM CDT VITAMIN B12 LEVEL Routine 07/06/2024 2:23 AM CDT FOLATE LEVEL Routine 07/06/2024 2:23 AM CDT DIFFERENTIAL Routine 07/06/2024 12:23 AM CDT .CBC Routine 07/06/2024 12:23 AM CDT PHOSPHORUS LEVEL Routine 07/06/2024 12:23 AM CDT MAGNESIUM LEVEL Routine 07/06/2024 12:23 AM CDT COMPREHENSIVE METABOLIC PANEL Routine 12:23 AM CDT COMPLETE BLOOD COUNT W/ DIFFERENTIAL Routine 07/06/2024 12:23 AM CDT POC GLUCOSE SCREEN Routine 07/05/2024 10:14 PM CDT POC GLUCOSE SCREEN Routine 07/05/2024 7:13 PM CDT TRANSFUSE RED BLOOD CELLS Routine 2023 2:38 PM CDT POC GLUCOSE SCREEN Routine 07/05/2024 12:24 PM CDT PREPARE RBC Routine 07/05/2024 11:52 AM CDT RETICULOCYTE COUNT AUTOMATED Add-On 9:19 AM CDT HEMOGLOBIN STAT 07/05/2024 9:19 AM CDT POC GLUCOSE SCREEN Routine 07/05/2024 8:38 AM CDT TRANSFUSE RED BLOOD CELLS Routine 2023 3:43 AM CDT PREPARE RBC Routine 07/05/2024 2:20 AM CDT IRON LEVEL Add-On 07/05/2024 1:49 AM CDT FERRITIN Add-On 07/05/2024 1:49 AM CDT TRANSFERRIN Add-On 07/05/2024 1:49 AM CDT .CBC Routine 07/05/2024 1:49 AM [...] NASOPHARYNGEAL SWAB Routine 07/04/2024 12:50 PM CDT URINE CULTURE Routine 07/04/2024 12:18 PM CDT URINALYSIS WITH MICROSCOPIC IF INDICATED Routine 07/04/2024 12:16 PM CDT POC VENOUS BLOOD GAS + LACTATE Routine 07/04/2024 12:11 PM CDT .CBC Routine 07/04/2024 [...] OSI CHEST Routine 07/04/2024 9:17 AM CDT Cholangiocarcin horace DIFFERENTIAL Routine 06/29/2024 9:49 AM CDT Cholangiocarcin horace .CBC Routine 06/29/2024 9:49 AM CDT Cholangiocarcin horace CARCINOEMBRYONIC ANTIGEN Routine 024 9:49 AM CDT Cholangiocarcin horace CARBOHYDRATE ANTIGEN 19-9 Routine 2023 9:49 AM CDT Cholangiocarcin horace FREE THYROXINE Routine 06/29/2024 9:49 AM CDT Cholangiocarcin horace THYROID STIMULATING HORMONE Routine 06/17 9:49 AM CDT Cholangiocarcin horace COMPLETE BLOOD COUNT W/ DIFFERENTIAL Routine 06/29/2024 9:49 AM CDT Cholangiocarcin horace COMPREHENSIVE METABOLIC PANEL Routine 9:49 AM CDT Cholangiocarcin horace GALECTIN 3 Routine 06/29/2024 9:49 AM CDT Cholangiocarcin horace POC GLUCOSE SCREEN Routine 06/19/2024 1:06 PM CDT FL PORTABLE FLUOROSCOPY Routine 06/19/20 11:57 AM CDT Calculus of kidney and ureter PATHOLOGY SURGICAL INTERPRETATION Routine 06/19/2024 8:42 AM CDT Calculus of kidney and ureter STONE ANALYSIS KIDNEY Routine 06/19/2024 8:42 AM CDT IA CYSTO W/URETEROSCOPY W/LITHOTRIPSY 06/19/2024 7:28 AM CDT Calculus of kidney and ureter Special Needs [email or web address] case to remain in a first startNeed following items for case: access sheath (not sure of the size yet), the flexible ureteroscope, 200 micron laser, NGage basket, and fluoro. IA CYSTO W/URETEROSCOPY W/RMVL/MANJ STONES 06/19/2024 7:28 AM CDT Calculus of kidney and ureter Special Needs [email or web address] case to remain in a first startNeed following items for case: access sheath (not sure of the size yet), the flexible ureteroscope, 200 micron laser, NGage basket, and fluoro. POC GLUCOSE SCREEN Routine 06/19/2024 6:41 AM CDT DIFFERENTIAL Routine 06/15/2024 7:31 AM CDT Cholangiocarcin horace MDA CP PRMYEF Routine 06/15/2024 7:31 AM CDT Cholangiocarcin horace .CBC Routine 06/15/2024 7:31 AM CDT Cholangiocarcin horace COMPLETE BLOOD COUNT W/ DIFFERENTIAL Routine 06/15/2024 7:31 AM CDT Cholangiocarcin horace COMPREHENSIVE METABOLIC PANEL Routine 7:31 AM CDT Cholangiocarcin horace VAP PORT REMOVAL Routine 06/07/2024 10:15 AM CDT Cholangiocarcin horace of biliary tract, NOS XR CHEST 1 VW PORTABLE STAT 9:19 AM CDT Encounter for adjustment and management of vascular access device VAP PICC INSERTION W US >5 YEARS OLD Routine 06/07/2024 8:38 AM CDT Cholangiocarcin horace of biliary tract, NOS VERIFY CATHETER TIP [...] device DIFFERENTIAL Routine 06/02/2024 10:20 AM CDT Cholangiocarcin horace MDA CP PRMYEF Routine 06/02/2024 10:20 AM CDT Cholangiocarcin horace .CBC Routine 06/02/2024 10:20 AM CDT Cholangiocarcin horace CARCINOEMBRYONIC ANTIGEN Routine 024 10:20 AM CDT Cholangiocarcin horace CARBOHYDRATE ANTIGEN 19-9 Routine 2023 10:20 AM CDT Cholangiocarcin horace FREE THYROXINE Routine 06/02/2024 10:20 AM CDT Cholangiocarcin horace THYROID STIMULATING HORMONE Routine 05/17 10:20 AM CDT Cholangiocarcin horace COMPLETE BLOOD COUNT W/ DIFFERENTIAL Routine 06/02/2024 10:20 AM CDT Cholangiocarcin horace COMPREHENSIVE METABOLIC PANEL Routine 10:20 AM CDT Cholangiocarcin horace GALECTIN 3 Routine 06/02/2024 10:20 AM CDT Cholangiocarcin horace POC GLUCOSE SCREEN Routine 05/29/2024 7:18 AM [...] GLUCOSE SCREEN Routine 05/27/2024 1:30 PM CDT IA GI TRC IMG INTRALUMINAL ESOPHAGUS-ILEUM W/I&R 05/27/2024 9:19 AM CDT Melena Anemia, not otherwise specified 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 restarted 7/9 after > 7 day hold. LD 7. Do not plan for biopsy, clipping or procedural intervention that increases bleeding risk. 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 restarted 7/9 after > 7 day hold. LD 710. Do not plan for biopsy, clipping or procedural intervention that increases bleeding risk. 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 restarted 7/9 after > 7 day hold. LD 10. Do not plan for biopsy, clipping or [...] 05/25/2024 4:48 AM CDT BASIC METABOLIC PANEL, CALCIUM TOTAL Routine 05/25/2024 4:48 AM CDT COMPLETE [...] 05/24/2024 12:18 AM CDT BASIC METABOLIC PANEL, CALCIUM TOTAL Routine 05/24/2024 12:18 AM CDT COMPLETE [...] 05/23/2024 6:26 AM CDT BASIC METABOLIC PANEL, CALCIUM TOTAL Routine 05/23/2024 6:26 AM CDT COMPLETE [...] 05/22/2024 5:36 AM CDT BASIC METABOLIC PANEL, CALCIUM TOTAL Routine 05/22/2024 5:36 AM CDT COMPLETE BLOOD COUNT W/ DIFFERENTIAL Routine 05/22/2024 5:36 AM CDT POC GLUCOSE SCREEN Routine 05/21/2024 10:25 PM CDT POC GLUCOSE SCREEN Routine 05/21/2024 6:04 PM CDT POC GLUCOSE SCREEN Routine 05/21/2024 3:08 PM CDT IA COLONOSCOPY FLX DX W/DEEPAK J SPEC WHEN PFRMD 05/21/2024 1:54 PM CDT Melena Anemia, not otherwise specified Special Needs LD plavix 05/15; recent RI (02/2024) with stent. Cardiology reviewed and reports patiet is at intermediate risk for low to intermiediate risk surgery and no further testing is needed before proceudre. IA ESOPHAGOGASTRODUODENOSCOP Y TRANSORAL DIAGNOSTIC 05/21/2024 1:54 PM CDT Melena Anemia, not otherwise specified Special Needs LD plavix 05/15; recent [place] (02/2024) with stent. Cardiology reviewed and reports [...] 05/21/2024 12:47 AM CDT BASIC METABOLIC PANEL, CALCIUM TOTAL Routine 05/21/2024 12:47 AM CDT COMPLETE [...] 05/20/2024 5:50 AM CDT BASIC METABOLIC PANEL, CALCIUM TOTAL Routine 05/20/2024 5:50 AM CDT COMPLETE [...] 05/19/2024 6:06 AM CDT BASIC METABOLIC PANEL, CALCIUM TOTAL Routine 05/19/2024 6:06 AM CDT COMPLETE [...] 05/18/2024 5:58 AM CDT BASIC METABOLIC PANEL, CALCIUM TOTAL Routine 05/18/2024 5:58 AM CDT COMPLETE [...] 05/17/2024 6:03 AM CDT BASIC METABOLIC PANEL, CALCIUM TOTAL Routine 05/17/2024 6:03 AM CDT COMPLETE [...] 05/16/2024 2:54 AM CDT BASIC METABOLIC PANEL, CALCIUM TOTAL Routine 05/16/2024 2:54 AM CDT COMPLETE [...] 05/15/2024 5:48 AM CDT BASIC METABOLIC PANEL, CALCIUM TOTAL Routine 05/15/2024 5:48 AM CDT COMPLETE [...] POC VENOUS BLOOD GAS + LACTATE Routine 05/12/2024 3:16 PM CDT TRANSFERRIN Add-On 05/12/2024 [...] CDT DIFFERENTIAL Routine 05/04/2024 8:42 AM CDT Cholangiocarcin horace of biliary tract, NOS .CBC Routine 05/04/2024 8:42 AM CDT Cholangiocarcin horace of biliary tract, NOS GALECTIN 3 Routine 05/04/2024 8:42 AM CDT Cholangiocarcin horace of biliary tract, NOS CARCINOEMBRYONIC ANTIGEN Routine 024 8:42 AM CDT Cholangiocarcin horace of biliary tract, NOS CARBOHYDRATE ANTIGEN 19-9 Routine 2023 8:42 AM CDT Cholangiocarcin horace of biliary tract, NOS FREE THYROXINE Routine 05/04/2024 8:42 AM CDT Cholangiocarcin horace of biliary tract, NOS THYROID STIMULATING HORMONE Routine 04/17 8:42 AM CDT Cholangiocarcin horace of biliary tract, NOS COMPLETE BLOOD COUNT W/ DIFFERENTIAL Routine 05/04/2024 8:42 AM CDT Cholangiocarcin horace of biliary tract, NOS COMPREHENSIVE METABOLIC PANEL Routine 8:42 AM CDT Cholangiocarcin horace of biliary tract, NOS .CBC Routine 04/20/2024 8:22 AM CDT Cholangiocarcin horace of biliary tract, NOS COMPLETE BLOOD COUNT W/ DIFFERENTIAL Routine 04/20/2024 8:22 AM CDT Cholangiocarcin horace of biliary tract, NOS COMPREHENSIVE METABOLIC PANEL Routine 8:22 AM CDT Cholangiocarcin horace of biliary tract, NOS CT CHEST ABDOMEN PELVIS W WO CONTRAST Routine 04/06/2024 3:12 PM CDT Cholangiocarcin horace of biliary tract, NOS DIFFERENTIAL Routine 04/06/2024 6:46 AM CDT Cholangiocarcin horace of biliary tract, NOS .CBC Routine 04/06/2024 6:46 AM CDT Cholangiocarcin horace of biliary tract, NOS GALECTIN 3 Routine 04/06/2024 6:46 AM CDT Cholangiocarcin horace of biliary tract, NOS CARCINOEMBRYONIC ANTIGEN Routine 024 6:46 AM CDT Cholangiocarcin horace of biliary tract, NOS CARBOHYDRATE ANTIGEN 19-9 Routine 2023 6:46 AM CDT Cholangiocarcin horace of biliary tract, NOS FREE THYROXINE Routine 04/06/2024 6:46 AM CDT Cholangiocarcin horace of biliary tract, NOS THYROID STIMULATING HORMONE Routine 03/18 6:46 AM CDT Cholangiocarcin horace of biliary tract, NOS COMPLETE BLOOD COUNT W/ DIFFERENTIAL Routine 04/06/2024 6:46 AM CDT Cholangiocarcin horace of biliary tract, NOS COMPREHENSIVE METABOLIC PANEL Routine 6:46 AM CDT Cholangiocarcin horace of biliary tract, NOS DIFFERENTIAL Routine 03/31/2024 8:56 AM CDT Cholangiocarcin horace of biliary tract, NOS .CBC Routine 03/31/2024 8:56 AM CDT Cholangiocarcin horace of biliary tract, NOS CARBOHYDRATE ANTIGEN 19-9 Routine 2023 8:56 AM CDT Cholangiocarcin horace of biliary tract, NOS COMPREHENSIVE METABOLIC PANEL Routine 8:56 AM CDT Cholangiocarcin horace of biliary tract, NOS COMPLETE BLOOD COUNT W/ DIFFERENTIAL Routine 03/31/2024 8:56 AM CDT Cholangiocarcin horace of biliary tract, NOS .CBC Routine 03/09/2024 8:13 AM CDT Cholangiocarcin horace of biliary tract, NOS COMPLETE BLOOD COUNT W/ DIFFERENTIAL Routine 03/09/2024 8:13 AM CDT Cholangiocarcin horace of biliary tract, NOS COMPREHENSIVE METABOLIC PANEL Routine 8:13 AM CDT Cholangiocarcin horace of biliary tract, NOS HEMOGLOBIN A1C Add-On 02/24/2024 7:23 AM CDT Cholangiocarcin horace of biliary tract, NOS DIFFERENTIAL Routine 02/24/2024 7:23 AM CDT Cholangiocarcin horace of biliary tract, NOS .CBC Routine 02/24/2024 7:23 AM CDT Cholangiocarcin horace of biliary tract, NOS CARCINOEMBRYONIC ANTIGEN Routine 024 7:23 AM CDT Cholangiocarcin horace of biliary tract, NOS CARBOHYDRATE ANTIGEN 19-9 Routine 2023 7:23 AM CDT Cholangiocarcin horace of biliary tract, NOS FREE THYROXINE Routine 02/24/2024 7:23 AM CDT Cholangiocarcin horace of biliary tract, NOS THYROID STIMULATING HORMONE Routine 07/2024 7:23 AM CDT Cholangiocarcin horace of biliary tract, NOS COMPLETE BLOOD COUNT W/ DIFFERENTIAL Routine 02/24/2024 7:23 AM CDT Cholangiocarcin horace of biliary tract, NOS COMPREHENSIVE METABOLIC PANEL Routine 7:23 AM CDT Cholangiocarcin horace of biliary tract, NOS .CBC Routine 02/10/2024 8:30 AM CDT Cholangiocarcin horace of biliary tract, NOS COMPLETE BLOOD COUNT W/ DIFFERENTIAL Routine 02/10/2024 8:30 AM CDT Cholangiocarcin horace of biliary tract, NOS COMPREHENSIVE METABOLIC PANEL Routine 8:30 AM CDT Cholangiocarcin horace of biliary tract, NOS CT ABDOMEN PELVIS WO CONTRAST Routine 11:07 AM CDT Cholangiocarcin horace of biliary tract, NOS Right lower quadrant pain .CBC Routine 02/05/2024 9:27 AM CDT Cholangiocarcin horace of biliary tract, NOS Right lower quadrant pain COMPREHENSIVE METABOLIC PANEL Routine 9:27 AM CDT Cholangiocarcin horace of biliary tract, NOS Right lower quadrant pain COMPLETE BLOOD COUNT W/ DIFFERENTIAL Routine 02/05/2024 9:27 AM CDT Cholangiocarcin horace of biliary tract, NOS Right lower quadrant pain .CBC Routine 01/27/2024 9:16 AM CDT Cholangiocarcin horace of biliary tract, NOS TROPONIN T Routine [...] CARCINOEMBRYONIC ANTIGEN Routine 024 9:16 AM CDT Cholangiocarcin horace of biliary tract, NOS CARBOHYDRATE ANTIGEN 19-9 Routine 2023 9:16 AM CDT Cholangiocarcin horace of biliary tract, NOS FREE THYROXINE Routine 01/27/2024 9:16 AM CDT Cholangiocarcin horace of biliary tract, NOS THYROID STIMULATING HORMONE Routine 01/15 9:16 AM CDT Cholangiocarcin horace of biliary tract, NOS COMPLETE BLOOD COUNT W/ DIFFERENTIAL Routine 01/27/2024 9:16 AM CDT Cholangiocarcin horace of biliary tract, NOS COMPREHENSIVE METABOLIC PANEL Routine 9:16 AM CDT Cholangiocarcin horace of biliary tract, NOS VERIFY CATHETER TIP PLACEMENT Routine 2:18 PM CDT Cholangiocarcin horace of biliary tract, NOS XR CHEST 2 VW Routine 01/26/2024 1:30 PM CDT Cholangiocarcin horace of biliary tract, NOS EKG, 12-LEAD (SCHEDULED) Routine 01/26/2024 Immunotherapy for cancer .CBC Routine 01/19/2024 2:09 PM UTILITY OPERATOR YARN Cholangiocarcin horace of biliary tract, NOS COMPREHENSIVE METABOLIC PANEL Routine 2:09 PM UTILITY OPERATOR YARN Cholangiocarcin horace of biliary tract, NOS COMPLETE BLOOD COUNT W/ DIFFERENTIAL Routine 01/19/2024 2:09 PM UTILITY OPERATOR YARN Cholangiocarcin horace of biliary tract, NOS MRI ABDOMEN & PELVIS W AND W O CONTRAST Routine 01/16/2024 6:53 PM UTILITY OPERATOR YARN Cholangiocarcin horace of biliary tract, NOS .CBC Routine 01/14/2024 9:53 AM UTILITY OPERATOR YARN Cholangiocarcin horace of biliary tract, NOS CARBOHYDRATE ANTIGEN 19-9 Routine 2023 9:53 AM UTILITY OPERATOR YARN Cholangiocarcin horace of biliary tract, NOS COMPREHENSIVE METABOLIC PANEL Routine 9:53 AM UTILITY OPERATOR YARN Cholangiocarcin horace of biliary tract, NOS COMPLETE BLOOD COUNT W/ DIFFERENTIAL Routine 01/14/2024 9:53 AM UTILITY OPERATOR YARN Cholangiocarcin horace of biliary tract, NOS CT CHEST WO CONTRAST Routine 01/07/2024 4:49 PM UTILITY OPERATOR YARN Cholangiocarcin horace of biliary tract, NOS POC CREATININE Routine 01/07/2024 3:57 PM UTILITY OPERATOR YARN OSI INTERVENTIONAL Routine 12/19/2023 11:58 PM UTILITY OPERATOR YARN Cancer OSI INTERVENTIONAL Routine 12/09/2023 11:57 PM UTILITY OPERATOR YARN Cancer OSI CT CHEST Routine 12/09/2023 11:57 PM UTILITY OPERATOR YARN Cancer OSI CT ABDOMEN AND PELVIS Routine 2023 11:57 PM UTILITY OPERATOR YARN Cancer PATHOLOGY OUTSIDE INTERPRETATION Routine 12/09/2023 PATHOLOGY OUTSIDE INTERPRETATION Routine 12/09/2023 after 07/28/2023 Results * (ABNORMAL) .CBC (07/27/2024 9:48 AM CDT) Only the most recent of39 resultswithin the time period is included. White Blood Cell 10.2 4.1 - 10.5 K/uL 07/27/2024 9:55 AM [facility] Red Blood Cell 3.24(L) 4.30 - 6.04 M/uL 07/27/2024 9:55 AM [facility] Hemoglobin 10.0(L) 13.3 - 17.4 g/dL 07/27/2024 9:55 AM [facility] Hematocrit 30.3(L) 39.5 - 51.8 % 07/27/2024 9:55 AM [facility] Mean Cell Volume 94 82 - 99 fL 07/27/2024 9:55 AM [facility] Mean Cell Hemoglobin 30.9 26.6 - 33.2 pg 07/27/2024 9:55 AM [facility] Mean Cell Hemoglobin Concentration 33.0 31.1 - 35.2 g/dL 07/27/2024 9:55 AM [facility] RDW-SD 60.1(H) 37.5 - 49.7 fL 07/27/2024 9:55 AM [facility] Red Cell Diameter Width 17.4(H) 11.6 - 15.5 % 07/27/2024 9:55 AM [facility] Platelet 216 160 - 397 K/uL 07/27/2024 9:55 AM [facility] Mean Platelet Volume 9.3 9.1 - 12.6 fL 07/27/2024 9:55 AM [facility] Neutrophil % 68.9 43.2 - 72.7 % 07/27/2024 9:55 AM [facility] Lymphocyte % 10.8(L) 16.8 - 46.2 % 07/27/2024 9:55 AM [facility] Monocyte % 19.1(H) 5.1 - 12.5 % 07/27/2024 9:55 AM [facility] Eosinophil % 0.4 0.4 - 6.3 % 07/27/2024 9:55 AM [facility] Basophil % 0.1(L) 0.2 - 1.4 % 07/27/2024 9:55 AM [facility] IGRE % 0.7 0.1 - 1.5 % 07/27/2024 9:55 AM [facility] Comment:The IGRE% includes M etamyelocytes, Myelocytes and Promyelocytes. Neutrophil Abs 7.02 1.95 - 7.25 K/uL 07/27/2024 9:55 AM [facility] Lymphocyte Abs 1.10 1.01 - 3.24 K/uL 07/27/2024 9:55 AM [facility] Monocyte Abs 1.95(H) 0.24 - 0.85 K/uL 07/27/2024 9:55 AM [facility] Eosinophil Abs 0.04 0.02 - 0.50 K/uL 07/27/2024 9:55 AM [facility] Basophil Abs 0.01(L) 0.02 - 0.09 K/uL 07/27/2024 9:55 AM [facility] IG Abs 0.07 0.01 - 0.12 K/uL 07/27/2024 9:55 AM [facility] Blood Peripheral blood specimen / Unknown Port / Unknown 07/27/2024 9:48 AM CDT 07/27/2024 9:52 AM CDT Marbella GRAJEDA LAB BLOOD ORDERABLES [facility] [place] [address] [facility], [facility] [address] [place] [address] * (ABNORMAL) Comprehensive Metabolic Panel (07/27/2024 9:48 AM CDT) Only the most recent of27 resultswithin the time period is included. Bilirubin Total 0.3 0.0 - 1.2 mg/dL 07/27/2024 10:13 AM [facility] Comment:Indocyanine Green (I CG) may cause falsely elevated bilirubin results. Total and direct bilirubin must not be measured from samples containing indocyanine green. False elevation of total bilirubin can be seen in patients with IgG concentrations above 28 g/L. eGFR 66 >=60 mL/min/1. 73 sq. m 07/27/2024 10:13 AM [facility] Comment: The eGFRcr is calculated [...] G2 fulfill criteria for CKD. Tot Protein 8.5(H) 6.4 - 8.3 gm/dL 07/27/2024 10:13 AM [facility] Calcium Level Total 9.3 8.2 - 10.2 mg/dL 07/27/2024 10:13 AM [facility] Alkaline Phosphatase 219(H) 40 - 129 U/L 07/27/2024 10:13 AM [facility] Albumin Level 3.7 3.5 - 5.2 gm/dL 07/27/2024 10:13 AM [facility] AST 116(H) <=40 U/L 07/27/2024 10:13 AM [facility] ALT 78(H) <=41 U/L 07/27/2024 10:13 AM [facility] Sodium Level 134(L) 136 - 145 mmol/L 07/27/2024 10:13 AM [facility] Potassium Level 4.7(H) 3.4 - 4.5 mmol/L 07/27/2024 10:13 AM [facility] Chloride 101 98 - 107 mmol/L 07/27/2024 10:13 AM [facility] CO2 19(L) 22 - 29 mmol/L 07/27/2024 10:13 AM [facility] Anion Gap 14 4 - 14 mmol/L 07/27/2024 10:13 AM [facility] Creatinine 1.13 0.67 - 1.17 mg/dL 07/27/2024 10:13 AM [facility] BUN 26(H) 6 - 23 mg/dL 07/27/2024 10:13 AM [facility] Glucose Level 195(H) 70 - 99 mg/dL 07/27/2024 10:13 AM [facility] Comment: Effective 06/12/16, the glucose reference intervals have been updated based on [place] Diabetes [employer] guidelines (Standards of Medical Care in Diabetes 2016. Diabetes Care 2016; 39: S13-S22). Fasting blood glucose: Normal: 70-99 mg/dL Impaired fasting glucose (increased risk for diabetes or pre-diabetes): 100-125 mg/dL Diabetes mellitus: >/=126 mg/dL Random blood glucose: Normal: 70-199 mg/dL Note: Random glucose >100 mg/dL is associated with increased risk for diabetes. Blood Peripheral blood specimen / Unknown Port / Unknown 07/27/2024 9:48 AM CDT 07/27/2024 9:53 AM CDT Marbella GRAJEDA LAB BLOOD ORDERABLES Performing Organization Address [facility]/ZIP Co de Phone Number [address], [facility] [address] [place] [address] * (ABNORMAL) CA 19-9 (07/27/2024 9:48 AM CDT) Only the most recent of9 resultswithin the time period is included. CA 19-9 42.3(H) <=35.0 U/mL 07/27/2024 10:24 AM CDT [facility] Blood Peripheral blood specimen / Unknown Port / Unknown 07/27/2024 9:48 AM CDT 07/27/2024 9:53 AM CDT Narrative [place] - 07/27/2024 10:24 AM CDT Results greater than 9500 U/mL may not be reliable due to matrix effect with extended dilution as it exceeds the sharepoint net developer's recommended limit. Caution should be exercised when interpreting such values and done in conjunction with clinical context. This test is measured by electrochemiluminescence immunoassay on Parker Bubba immunoassay analyzers. Results obtained in different methods are not interchangeable. Marbella GRAJEDA LAB BLOOD ORDERABLES Performing Organization Address [facility] Co de Phone Number [address], [facility] [address] [place] [address] * (ABNORMAL) TSH (07/27/2024 9:48 AM CDT) Only the most recent of9 resultswithin the time period is included. Thyroid Stimulating Hormone 27.42(H) 0.27 - 4.20 mcunit/mL 07/27/2024 10:24 AM CDT [place] Blood Peripheral blood specimen / Unknown Port / Unknown 07/27/2024 9:48 AM CDT 07/27/2024 9:53 AM CDT Marbella Pereira AR LAB BLOOD ORDERABLES Performing Organization Address City/[facility]/ZIP Co de Phone Number [address], [facility] [id number] [place] [phone] * (ABNORMAL) Free T4 (07/27/2024 9:48 AM CDT) Only the most recent of9 resultswithin the time period is included. T4 (Thyroxine) Free 0.85(L) 0.92 - 1.68 ng/dL 07/27/2024 10:24 AM CDT [place] Blood Peripheral blood specimen / Unknown Port / Unknown 07/27/2024 9:48 AM CDT 07/27/2024 9:53 AM CDT Marbella GRAJEDA LAB BLOOD ORDERABLES Performing Organization Address City/[facility] Co de Phone Number [address] [phone] * (ABNORMAL) CEA (07/27/2024 9:48 AM CDT) Only the most recent of7 resultswithin the time period is included. Carcinoembryonic Antigen 3.9(H) <=3.8 ng/mL 07/27/2024 12:45 PM CDT [place] Blood Peripheral blood specimen / Unknown Port / Unknown 07/27/2024 9:48 AM CDT 07/27/2024 9:53 AM CDT [facility] - 07/27/2024 12:45 PM CDT Reference Ranges (age 20-69 years): Non-smoker: 0.0 - 3.8 ng/mL Smoker: 0.0 - 5.5 ng/mL This test is measured by electrochemiluminescence immunoassay on Parker [employer]ubba immunoassay analyzers. Results obtained in different methods are not interchangeable. Marbella GRAJEDA LAB BLOOD ORDERABLES Performing Organization Address City/[facility]/ZIP Co de Phone Number [place] [phone] [place] [address] * FL Central Venous Place Exchange (07/26/2024 3:03 PM CDT) Narrative Systemgenerated, Documentation - 07/26/2024 3:03 PM CDT This procedure requires no interpretation from the radiologist. Jac Craig MD IMG FLUOROSCOPY JOSE JUAREZ * XR Chest 1 View Post Implant (07/26/2024 1:11 PM CDT) Anatomical Region Laterality Modality Chest Digital Radiogra phy 07/26/2024 1:19 PM CDT Impressions 07/26/2024 1:21 PM CDT The left chest port terminates in the upper right atrium. No pneumothorax. ACTIONABLE ITEMS/RECOMMENDATIONS*: None. *An Actionable Finding is a finding that may be unrelated to the original reason for imaging but potentially actionable, meaning further investigation may be necessary. The Actionable Findings Vigilance Unit (AFVU) assists medical providers with responding to additional radiologic findings that are unexpected and potentially actionable. Narrative 07/26/2024 1:21 PM CDT FULL RESULT: Examination: XR CHEST 1 VW POST IMPLANT on 07/26/2024 1:11 PM. Clinical History: Cholangiocarcinoma Indication: Check Central Line placement Comparison: 07/04/2024 Technique: Frontal radiograph of the chest Findings: Support Apparatus: The right PICC has been removed. The left chest port terminates in the upper right atrium. Lungs/Pleura/Mediastinum: The cardiomediastinal silhouette is stable. The lungs and pleural spaces are clear. The visualized osseous structures and upper abdomen are stable. Procedure Note Eliecer March MD - 07/26/2024 FULL RESULT: Examination: XR CHEST 1 VW POST IMPLANT on 07/26/2024 1:11 PM. Clinical History: Cholangiocarcinoma Indication: Check Central Line placement Comparison: 07/04/2024 Technique: Frontal radiograph of the chest Findings: Support Apparatus: The right PICC has been removed. The left chest portterminates in the upper right atrium. Lungs/Pleura/Mediastinum: The cardiomediastinal silhouette is stable. Thelungs and pleural spaces are clear. The visualized osseous structures and upper abdomen are stable. IMPRESSION: The left chest port terminates in the upper right atrium. Nopneumothorax. ACTIONABLE ITEMS/RECOMMENDATIONS*: None. *An Actionable Finding is a finding that may be unrelated to the originalreason for imaging but potentially actionable, meaning furtherinvestigation may be necessary. The Actionable Findings Vigilance Unit(AFVU) assists medical providers with responding to additional radiologicfindings that are unexpected and potentially actionable. Jac Craig MD IMG DIAGNOSTIC IMAGI NG ORDERABLES * (ABNORMAL) POC Glucose Screen - Fingerstick (07/26/2024 12:53 PM CDT) Only the most recent of74 resultswithin the time period is included. Glucose Screen 122(H) 70 - 99 mg/dL 07/26/2024 12:55 PM CDT [facility] POC Sample Type Capillary 07/26/2024 12:55 PM CDT [facility] Blood 07/26/2024 12:5 3 PM CDT 07/26/2024 12:55 PM CDT Narrative [facility] - 07/26/2024 12:55 PM CDT Capillary blood samples, e.g. obtained by [...] questionable test results by core lab methodology. Jac Craig MD POCT ORDERABLES - DE VICE [facility] Unless otherwise noted, all lab tests performed by: Division of Pathology and Laboratory Medicine [address] [place] [id number] * Vascular Access Bundle (07/26/2024 11:24 AM CDT) Narrative Jac Craig MD - 07/26/2024 11:24 AM CDT Jac Craig MD 07/26/2024 1:11 PM [facility] Prevention Checklist -Hand hygiene performed prior to central venous catheter insertion. -Insertion site prepped and cleaned with aseptic technique (Sterile devices and equipment used. Doors closed and traffic minimized during procedure). -Insertion site prepped with chlorhexidine gluconate (Standard) -Skin prep agent completely dried prior to procedure. -Maximum sterile barriers used during central venous catheter insertion. -A sterile dressing placed over insertion site -Tip Verification: placement and tip verified by x-ray -Ready for use: central line is ready for use and in acceptable position Jac Craig MD IV THERAPY ORDERABLE S * US Guided Central Line Placement Without Report (07/26/2024 8:46 AM CDT) Narrative Systemgenerated, Documentation - 07/26/2024 8:46 AM CDT This procedure requires no interpretation from the radiologist. Lili Boss APRN [facility] DI ORDERABLE S * Intraoperative Ultrasound - For Image Storage (without Report) (07/26/2024 8:31 AM CDT) Narrative Systemgenerated, Documentation - 07/26/2024 8:31 AM CDT This procedure requires no interpretation from the radiologist. Jac Craig MD [facility] ORDERABLE S * (ABNORMAL) Differential (07/26/2024 7:58 AM CDT) Only the most recent of29 resultswithin the time period is included. Total Cells 100 07/26/2024 9:21 AM CDT [facility] Manual Neutrophil % 62.0 43.2 - 72.7 % 07/26/2024 9:21 AM CDT [facility] Comment:The Neutrophil count includes Bands. Manual Lymphocyte % 7.0(L) 16.8 - 46.2 % 07/26/2024 9:21 AM CDT [facility] Manual Monocyte % 31.0(H) 5.1 - 12.5 % 07/26/2024 9:21 AM CDT [facility] Metamyelocyte % 9:21 AM [facility] Comment:The Metamyelocyte co unt includes Myelocytes. Manual Neutrophil Abs 4.96 1.95 - 7.25 K/uL 07/26/2024 9:21 AM [facility] Manual Lymphocyte Abs 0.56(L) 1.01 - 3.24 K/uL 07/26/2024 9:21 AM [facility] Manual Monocyte Abs 2.48(H) 0.24 - 0.85 K/uL 07/26/2024 9:21 AM [facility] RBC Morphology PRESENT 07/26/2024 9:21 AM [facility] PLT Morph Normal Normal 07/26/2024 9:21 AM [facility] Anisocytosis Present(A) (none) 07/26/2024 9:21 AM [facility] Blood Venous blood specimen / Unknown CVC Line / Unknown 07/26/2024 7:58 AM CDT 07/26/2024 8:08 AM CDT Lili Boss APRN LAB BLOOD ORDERABLES [address] [place] [address] * (ABNORMAL) BUN (07/26/2024 7:58 AM CDT) BUN 31(H) 6 - 23 mg/dL 07/26/2024 8 :45 AM [facility] Blood Venous blood specimen / Unknown CVC Line / Unknown 07/26/2024 7:58 AM CDT 07/26/2024 8:08 AM CDT Lili Boss APRN LAB BLOOD ORDERABLES [address] [place] [address] * (ABNORMAL) Creatinine (07/26/2024 7:58 AM CDT) Creatinine 1.27(H) 0.67 - 1.17 mg/dL 07/26/2024 8:45 AM T [facility] eGFR 57(L) >=60 mL/min/1. 73 sq. m 07/26/2024 8:45 AM T [facility] Comment: The eGFRcr is calculated with the [...] nor G2 fulfill criteria for CKD. Blood Venous blood specimen / Unknown CVC Line / Unknown 07/26/2024 7:58 AM CDT 07/26/2024 8:08 AM CDT Lili Boss APRN LAB BLOOD ORDERABLES [facility] [address] [facility] [place] [address] * (ABNORMAL) Electrolyte Panel (07/26/2024 7:58 AM CDT) Sodium Level 135(L) 136 - 145 mmol/L 07/26/2024 8:45 AM T [facility] Potassium Level 4.5 3.4 - 4.5 mmol/L 07/26/2024 8:45 AM T [facility] Chloride 104 98 - 107 mmol/L 07/26/2024 8:45 AM T [facility] CO2 20(L) 22 - 29 mmol/L 07/26/2024 8:45 AM T [facility] Anion Gap 11 4 - 14 mmol/L 07/26/2024 8:45 AM CDT [facility] Blood Venous blood specimen / Unknown CVC Line / Unknown 07/26/2024 7:58 AM CDT 07/26/2024 8:08 AM CDT Lili Boss APRN LAB BLOOD ORDERABLES [facility] [address] [facility] [place] [address] * US RENAL (07/16/2024 11:00 AM CDT) Only the most recent of2 resultswithin the time period is included. Anatomical Region Laterality Modality Abdomen Ultrasound 07/16/2024 3:10 PM CDT Impressions 07/16/2024 3:15 PM CDT 1. Very mild right renal pelviectasis, decreased compared to the prior exam. 2. Left renal simple cyst. 3. Bilateral nephrolithiasis. ACTIONABLE ITEMS/RECOMMENDATIONS*: See impression and findings. *An Actionable Finding is a finding that may be unrelated to the original reason for imaging but potentially actionable, meaning further investigation may be necessary. The Actionable Findings Vigilance Unit (AFVU) assists medical providers with responding to additional radiologic findings that are unexpected and potentially actionable. Narrative 07/16/2024 3:15 PM CDT Examination: US RENAL on 07/16/2024 11:00 AM. Clinical History: Calculus of kidney and ureter. Indication: Other:, assess for hydro. Comparison: None available. TECHNIQUE: The kidneys and bladder were evaluated with grayscale and color Doppler ultrasound. FINDINGS: Left Kidney: Measures up to 10.2 cm in maximum length. There are several simple cysts identified in the left kidney measuring up to 1.8 cm. There is also a calculus identified in the lower pole of left kidney measuring up to 0.5 cm. There is no hydronephrosis or contour deforming masses. Right Kidney: Measures up to 11.0 cm in maximum length. No contour deforming masses or cysts. There may be a tiny stone in the lower pole of the right kidney measuring up to 0.5 cm. There is some very mild right renal pelviectasis this has decreased as compared to the prior examination. This is not appreciably changed on the postvoid images. Bladder: The prevoid volume of the bladder is 437 mL with a postvoid residual of 28 mL. No definite masses, calculi or bladder wall thickening are seen. There are bilateral ureteral jets. Procedure Note Mike Garrett MD - 07/16/2024 Examination: US RENAL on 07/16/2024 11:00 AM. Clinical History: Calculus of kidney and ureter. Indication: Other:, assess for hydro. Comparison: None available. TECHNIQUE: The kidneys and bladder were evaluated with grayscale andcolor Doppler ultrasound. FINDINGS: Left Kidney: Measures up to 10.2 cm in maximum length. There are severalsimple cysts identified in the left kidney measuring up to 1.8 cm. Thereis also a calculus identified in the lower pole of left kidney measuringup to 0.5 cm. There is no hydronephrosis or contour deforming masses. Right Kidney: Measures up to 11.0 cm in maximum length. No contourdeforming masses or cysts. There may be a tiny stone in the lower pole ofthe right kidney measuring up to 0.5 cm. There is some very mild rightrenal pelviectasis this has decreased as compared to the priorexamination. This is not appreciably changed on the postvoid images. Bladder: The prevoid volume of the bladder is 437 mL with a postvoidresidual of 28 mL. No definite masses, calculi or bladder wall thickeningare seen. There are bilateral ureteral jets. IMPRESSION: 1. Very mild right renal pelviectasis, decreased compared to the priorexam. 2. Left renal simple cyst. 3. Bilateral nephrolithiasis. ACTIONABLE ITEMS/RECOMMENDATIONS*: See impression and findings. *An Actionable Finding is a finding that may be unrelated to the originalreason for imaging but potentially actionable, meaning furtherinvestigation may be necessary. The Actionable Findings Vigilance Unit(AFVU) assists medical providers with responding to additional radiologicfindings that are unexpected and potentially actionable. Al Quick IV, MD IMG US ORDERABLE S * CT Chest Abdomen Pelvis with and without Contrast (07/16/2024 10:26 AM CDT) Only the most recent of2 resultswithin the time period is included. Anatomical Region Laterality Modality Abdomen, Pelvis, Chest Computed Tomography 07/16/2024 10:3 3 AM CDT Impressions 07/16/2024 11:22 AM CDT 1. Stable soft tissue thickening surrounding the hilar confluence of the common bile duct may represent combination of tumor infiltration and/or posttreatment changes when comparing to 04/06/2024. 2. No new suspicious hepatic lesion identified. 3. No evidence of new or progressive metastatic disease within the chest, abdomen and pelvis. 4. Interval migration of 6 mm left ureteral calculus to the left UVJ since 07/04/2024 (protruding into the urinary bladder lumen). 5. 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 ACTIONABLE ITEMS/RECOMMENDATIONS*: None. *An Actionable Finding is a finding that may be unrelated to the original reason for imaging but potentially actionable, meaning further investigation may be necessary. The Actionable Findings Vigilance Unit (AFVU) assists medical providers with responding to additional radiologic findings that are unexpected and potentially actionable. Narrative 07/16/2024 11:22 AM CDT FULL RESULT: Examination: CT CHEST ABDOMEN PELVIS W WO CONTRAST on 07/16/2024 10:26 AM. Clinical History: Cholangiocarcinoma. Indication: restage. Comparison: Most recent studies from 07/04/2024, 05/13/2024 and 04/06/2024. Technique: CT CHEST ABDOMEN PELVIS W WO CONTRAST. Findings: CHEST: Lungs and Pleura: Stable subcentimeter pleural-based nodular density within the left posterior apex when comparing to 07/04/2024 but new when comparing to 04/06/2024. No new suspicious pulmonary nodule. Patchy groundglass opacity within the peripheral left lower lobe is new and nonspecific (19:87), possibly infectious or inflammatory. Redemonstration of chronic interstitial thickening/scarring most prominent within the lung bases. No pleural effusion. Cardiomediastinum: The heart is normal in size. 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 No pericardial effusion. Lymph nodes: Stable nonspecific 0.7 cm right retropectoral lymph node (18:37). Chest Wall: Right PICC catheter terminates in the superior cavoatrial junction. ABDOMEN AND PELVIS: Hepatobiliary: Metallic stent extends from segment 3 bile ducts to the duodenum. Moderately pneumobilia remains unchanged. Soft tissue stranding surrounding the hilar confluence in the common bile duct may represent combination of tumor infiltration and posttreatment changes. Overall appearance is not appreciably changed when comparing to 05/13/2024. This soft tissue thickening encases the right hepatic artery and portal bifurcation. No appreciable narrowing of the portal vein. Mild bile duct wall thickening of the hilar confluence is unchanged. No new suspicious hepatic lesion identified. Gallbladder is absent. Spleen: No splenomegaly. 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 No new main pancreatic ductal dilatation. Adrenal Glands: No mass. Kidneys, Ureters, Bladder: Kidneys enhance symmetrically. No hydronephrosis bilaterally. Scattered renal cysts of varying sizes measuring up to 2.1 cm. Some renal subcentimeter cortical obtaining foci too small to characterize but statistically represent additional tiny cyst. Interval migration of left ureteral 6 mm calculus to the left UVJ (almost in the bladder lumen/protruding into the urinary bladder lumen on 17:383) since 07/04/2024. Few scattered punctate nonobstructive calculi. Unchanged urothelial thickening within the right renal pelvis and proximal ureter. Gastrointestinal Tract: No evidence of mechanical bowel obstruction. Pelvic Organs: Enlarged prostate measures 5.4 cm in transverse dimension at the level femoral heads. Peritoneum/Retroperitoneum: No ascites. Similar appearance of stranding and what is thought to represent fat necrosis within the epigastric region. Stable peripherally calcified structure measuring 1.5 cm within the right upper quadrant just anterior to the distal stomach/duodenal with central enhancement and epiploic vessels coursing into this structure, stable when comparing to 12/09/2023. 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 Lymph Nodes: No new suspicious lymphadenopathy. MUSCULOSKELETAL: No suspicious skeletal lesion. Multilevel degenerative changes. Procedure Note Be Nelson MD - 07/16/2024 FULL RESULT: Examination: CT CHEST ABDOMEN PELVIS W WO CONTRAST on 07/16/2024 10:26AM. Clinical History: Cholangiocarcinoma. Indication: restage. Comparison: Most recent studies from 07/04/2024, 05/13/2024 and 04/06/2024. Technique: CT CHEST ABDOMEN PELVIS W WO CONTRAST. Findings: CHEST: Lungs and Pleura: Stable subcentimeter pleural-based nodular densitywithin the left posterior apex when comparing to 07/04/2024 but new whencomparing to 04/06/2024. No new suspicious pulmonary nodule. Patchy groundglass opacity within the peripheral left lower lobe is newand nonspecific (19:87), possibly infectious or inflammatory. Redemonstration of chronic interstitial thickening/scarring most prominentwithin the lung bases. No pleural effusion. Cardiomediastinum: The heart is normal in size. Advanced multivesselcoronary calcifications and evidence of prior coronary artery bypass graftsurgery. No pericardial effusion. Lymph nodes: Stable nonspecific 0.7 cm right retropectoral lymph node(18:37). Chest Wall: Right PICC catheter terminates in the superior cavoatrialjunction. ABDOMEN AND PELVIS: Hepatobiliary: Metallic stent extends from segment 3 bile ducts to theduodenum. Moderately pneumobilia remains unchanged. Soft tissue stranding surrounding the hilar confluence in the common bileduct may represent combination of tumor infiltration and posttreatmentchanges. Overall appearance is not appreciably changed when comparing to05/13/2024. This soft tissue thickening encases the right hepatic artery and portalbifurcation. No appreciable narrowing of the portal vein. Mild bile duct wall thickening of the hilar confluence is unchanged. No new suspicious hepatic lesion identified. Gallbladder is absent. Spleen: No splenomegaly. Pancreas: Grossly stable 0.9 cm cystic lesion at the pancreatic bodythought to represent intraductal papillary mucinous neoplasm is bettercharacterized on prior MRI. No new main pancreatic ductal dilatation. Adrenal Glands: No mass. Kidneys, Ureters, Bladder: Kidneys enhance symmetrically. Nohydronephrosis bilaterally. Scattered renal cysts of varying sizesmeasuring up to 2.1 cm. Some renal subcentimeter cortical obtaining focitoo small to characterize but statistically represent additional tinycyst. Interval migration of left ureteral 6 mm calculus to the left UVJ (almostin the bladder lumen/protruding into the urinary bladder lumen on 17:383)since 07/04/2024. Few scattered punctate nonobstructive calculi. Unchanged urothelial thickening within the right renal pelvis and proximalureter. Gastrointestinal Tract: No evidence of mechanical bowel obstruction. Pelvic Organs: Enlarged prostate measures 5.4 cm in transverse dimensionat the level femoral heads. Peritoneum/Retroperitoneum: No ascites. Similar appearance of strandingand what is thought to represent fat necrosis within the epigastricregion. Stable peripherally calcified structure measuring 1.5 cm within the rightupper quadrant just anterior to the distal stomach/duodenal with centralenhancement and epiploic vessels coursing into this structure, stable whencomparing to 12/09/2023. 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 Lymph Nodes: No new suspicious lymphadenopathy. MUSCULOSKELETAL: No suspicious skeletal lesion. Multilevel degenerative changes. IMPRESSION: 1. Stable soft tissue thickening surrounding the hilar confluence of thecommon bile duct may represent combination of tumor infiltration and/orposttreatment changes when comparing to 04/06/2024. 2. No new suspicious hepatic lesion identified. 3. No evidence of new or progressive metastatic disease within the chest,abdomen and pelvis. 4. Interval migration of 6 mm left ureteral calculus to the left UVJsince 07/04/2024 (protruding into the urinary bladder lumen). 5. 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 ACTIONABLE ITEMS/RECOMMENDATIONS*: None. *An Actionable Finding is a finding that may be unrelated to the originalreason for imaging but potentially actionable, meaning furtherinvestigation may be necessary. The Actionable Findings Vigilance Unit(AFVU) assists medical providers with responding to additional radiologicfindings that are unexpected and potentially actionable. Marbella GRAJEDA IMG CT ORDERABLES * (ABNORMAL) POC Creatinine (07/16/2024 9:38 AM CDT) Only the most recent of2 resultswithin the time period is included. POC Creatinine 1.3 0.6 - 1.3 mg/dL 07/16/2024 9:40 AM CDT [facility] Comment:Medications, especia lly hydroxyurea or supplements, such as ascorbate, can interfere with test results causing a falsely and significantly higher result than expected. If a problem is suspected with a patient's result, a sample should be sent to the laboratory for confirmatory testing. POC eGFR 56(L) >=60 mL/min/1.7 3 sq. m 07/16/2024 9:40 AM CDT [facility] Comment: The eGFRcr is calculated with the [...] nor G2 fulfill criteria for CKD. Blood 07/16/2024 9:38 AM CDT 07/16/2024 9:40 AM CDT Narrative [facility] - 07/16/2024 9:40 AM CDT Method description: The i-STAT is an [...] measure analyte concentration by an electrochemical assay. Marbella GRAJEDA POCT ORDERABLES - DE VICE TRISHA ASH[facility] [address] [facility], [facility] [address] [place] [address] * Type and Screen (07/08/2024 1:14 AM CDT) Only the most recent of7 resultswithin the time period is included. ABORh O POS 07/08/2024 1:30 AM CDT [facility] ABSC Negative 07/08/2024 1:30 AM CDT [facility] Clot Expiration 07/11/2024 23:59 07/08/2024 1:30 AM CDT [facility] Historical Record Check Complete 07/08/2024 1:30 AM CDT [facility] Blood Venous blood specimen / Unknown CVC Line / Unknown 07/08/2024 1:14 AM CDT 07/08/2024 1:19 AM CDT Roxanna Jennifer YIN BLOOD BANK TEST O RDERABLES [facility] [address] [place] [address] * (ABNORMAL) Smooth Muscle Antibody Titer (07/07/2024 10:21 PM CDT) Pathologist [facility] Smooth Muscle Antibody Titer Positive 1:40(A) Negative 07/10/2024 2:34 PM CDT [facility] Comment: ADDITIONAL INFORMATION This test was developed and its performance characteristics determined by [facility] in a manner consistent with CLIA requirements. This test has not been cleared or approved by the U.S. Food and Drug Administration. Test Performed by: [facility] - [address] [address] Supervisor Final: Mau Thakkar Ph.D.; CLIA# [id number] Blood Peripheral blood specimen / Unknown Venipuncture / Unknown 07/07/2024 10:21 PM CDT 07/07/2024 10:36 PM CDT Christine Mcdowell DO LAB BLOOD ORDERABLES [facility] [employer] [facility] * Antinuclear Antibody (LIZBETH) HEp-2 Substrate, IgG (07/07/2024 10:21 PM CDT) [facility] HEp-2 Substrate <1:80 (Negativ e) <1:80 (Negativ e) 07/09/2024 9:03 PM CDT [facility] Comment: ADDITIONAL INFORMATION Method: Immunofluorescence using HEp-2 cellular substrate. Test Performed by: [facility] [address] [place] [address] Supervisor Final: Mau Thakkar Ph.D.; CLIA# [id number] LIZBETH Titer DNR 07/09/2024 9:03 PM CDT [facility] LIZBETH Pattern DNR 07/09/2024 9:03 PM CDT [facility] LIZBETH Titer 2 DNR 07/09/2024 9:03 PM CDT [facility] LIZBETH Pattern 2 DNR 07/09/2024 9:03 PM CDT [facility] LIZBETH Cytoplasmic Pattern DNR 07/09/2024 9:03 PM CDT [facility] LIZBETH Lab Comment DNR 9:03 PM CDT [facility] Blood Peripheral blood specimen / Unknown Venipuncture / Unknown 07/07/2024 10:21 PM CDT 07/07/2024 10:36 PM CDT [facility] BLOOD ORDERABLES [facility] * (ABNORMAL) Hepatitis A Virus Panel (07/07/2024 10:21 PM CDT) Hepatitis A Antibodies Total Positive(A) Negative 07/09/2024 12:19 PM CDT [facility] ([employer]) Comment: The positive anti-HAV is consistent with recent or remote Hepatitis A infection or antibody response to HAV vaccination. False positive anti-HAV can occur. Hepatitis A Antibody IgM Negative Negative 07/09/2024 12:19 PM CDT [facility] ([employer]) Hepatitis A Panel Interpretation See Note 07/09/2024 12:[address] [facility]) Comment: The pattern of positive total anti-HAV and negative IgM anti-HAV is consistent with two clinical situations: (1) recovered Hepatitis A infection, or (2) antibody response to HAV vaccination. Performed By: [facility] [employer] [address] [place] [id number] [employer]: Ramirez Young MD, PhD CLIA Number: [id number] Blood Peripheral blood specimen / Unknown Venipuncture / Unknown 07/07/2024 10:21 PM CDT 07/07/2024 10:36 PM CDT [facility] BLOOD ORDERABLES Performing Organization Address [facility]/ZIP Co de Phone Number [facility] * Hepatitis C Virus RNA Detect/Quant (07/07/2024 10:21 PM CDT) [facility] HepC RNA PCR [facility] Undetected Undetected IU/mL 07/10/2024 2:00 PM CDT [facility] Comment: Result in log IU/mL is Undetected. ADDITIONAL INFORMATION The quantification range of this assay is 15 to 100,000,000 IU/mL (1.18 log to 8.00 log IU/mL). Testing was performed using the bubba HCV test ([employer] Test Performed by: [place] [address] Supervisor Final: Mau Thakkar Ph.D.; CLIA# [id number] Blood Peripheral blood specimen / Unknown Venipuncture / Unknown 07/07/2024 10:21 PM CDT 07/07/2024 10:36 PM CDT [facility] BLOOD ORDERABLES Performing Organization Address City/[facility]/ZIP Co de Phone Number [facility] * HBV DNA Quant (07/07/2024 10:21 PM CDT) [facility] Undetected IU/mL 07/10/2024 2:19 PM CDT [facility] Comment: Result in log IU/mL is Undetected. ADDITIONAL INFORMATION The quantification range of this assay is 10 to 1,000,000,000 IU/mL (1.00 log to 9.00 log IU/mL). Testing was performed using the bubba HBV test ([employer] Test Performed by: [facility] [address] [place] [address] Supervisor Final: Mau Thakkar Ph.D.; CLIA# [id number] Blood Peripheral blood specimen / Unknown Venipuncture / Unknown 07/07/2024 10:21 PM CDT 07/07/2024 10:36 PM CDT [facility] BLOOD ORDERABLES Performing Organization Address City/[facility]/ZIP Co de Phone Number [facility] * Hepatitis C Virus Antibody (07/07/2024 10:21 PM CDT) Only the most recent of2 resultswithin the time period is included. [facility] HCVAb. Non Reactive Non Reactive 07/08/2024 9:23 AM CDT [facility] Blood Peripheral blood specimen / Unknown Venipuncture / Unknown 07/07/2024 10:21 PM CDT 07/07/2024 10:36 PM CDT Narrative [facility] - 07/08/2024 9:23 AM CDT Antibody detection in the immunocompromised and immunosuppressed population may be delayed or absent entirely. Therefore serial testing, correlation with other clinical findings, and supplemental testing (if available) should be taken into consideration when interpreting the results. [facility] LAB BLOOD ORDERABLES [facility] Unless otherwise noted, all lab tests performed by: Division of Pathology and Laboratory Medicine [address] [place] [id number] * Hepatitis B Total Ig Core Ab (SCREENING) (anti-HBc total Ig; HBcAb total Ig) (07/07/2024 10:21 PM CDT) Only the most recent of2 resultswithin the time period is included. [facility] HBcAb. Non Reactive Non Reactive 07/08/2024 9:22 AM CDT [facility] Blood Peripheral blood specimen / Unknown Venipuncture / Unknown 07/07/2024 10:21 PM CDT 07/07/2024 10:36 PM CDT [facility] BLOOD ORDERABLES [facility] Unless otherwise noted, all lab tests performed by: Division of Pathology and Laboratory Medicine [address] [place] [id number] * Liver/Kidney Microsome Type 1 Ab (07/07/2024 10:21 PM CDT) [facility] Shawanda/Kid Micro 1-Boland <5.0 <=20.0 (Negative) U 07/09/2024 7:00 PM CDT [facility] Comment: Test Performed by: [place] [address] Supervisor Final: Mau Thakkar Ph.D.; CLIA# [id number] Blood Peripheral blood specimen / Unknown Venipuncture / Unknown 07/07/2024 10:21 PM CDT 07/07/2024 10:[address] [facility] LAB BLOOD ORDERABLES [facility] * (ABNORMAL) Alpha 1 Antritrypsin (07/07/2024 10:21 PM CDT) [facility](H) 100 - 190 mg/dL 07/09/2024 1:23 PM CDT [facility] Comment: Test Performed by: [place] [address] Supervisor Final: Mau Thakkar Ph.D.; CLIA# [id number] Blood Peripheral blood specimen / Unknown Venipuncture / Unknown 07/07/2024 10:21 PM CDT 07/07/2024 10:36 PM CDT [facility] BLOOD ORDERABLES [facility] * Mitochondrial Ab M2 (07/07/2024 10:21 PM CDT) AMA Ab Screen-Boland <0.1 <0.1 (Negative) U 07/09/2024 9:03 PM CDT [facility] [employer] [facility] Comment: Test Performed by: [facility] [address] [place] [address] Supervisor Final: Mau Thakkar Ph.D.; CLIA# [id number] Blood Peripheral blood specimen / Unknown Venipuncture / Unknown 07/07/2024 10:21 PM CDT 07/07/2024 10:36 PM CDT [facility] BLOOD ORDERABLES Performing Organization Address City/[facility]/ZIP Co de Phone Number [facility] [employer] [facility] * (ABNORMAL) Ceruloplasmin Level (07/07/2024 10:21 PM CDT) Ceruloplasmin-May o 36.6(H) 19.0 - 31.0 mg/dL 07/09/2024 2:28 PM CDT [facility] [employer] [facility] Comment: Test Performed by: [facility] [address] [place] [address] Supervisor Final: Mau Thakkar Ph.D.; CLIA# [id number] Blood Peripheral blood specimen / Unknown Venipuncture / Unknown 07/07/2024 10:21 PM CDT 07/07/2024 10:36 PM CDT [facility] BLOOD ORDERABLES [employer] ZACH * Hepatitis B IgM Core Ab (CONFIRM ACUTE INFECTION ONLY) (anti-HBc IgM; HBcAb IgM) (07/07/2024 10:21 PM CDT) [facility] Hep B Core IgM-[place] Negative Negative 07/09/2024 2:09 PM CDT [facility] Comment: Consumption of high-dose biotin supplement within 12 hours of blood collection for this test can cause false-negative results. Test Performed by: [facility] [place] [address] Supervisor Final: Mau Thakkar Ph.D.; CLIA# [id number] Blood Peripheral blood specimen / Unknown Venipuncture / Unknown 07/07/2024 10:21 PM CDT 07/07/2024 10:36 PM CDT [facility] BLOOD ORDERABLES Performing Organization Address [facility] de Phone Number [facility] * (ABNORMAL) Smooth Muscle Ab (07/07/2024 10:21 PM CDT) [facility] SMA Screen-[place] Positive( A) Negative 07/10/2024 10:39 AM CDT [facility] Comment: Positive: Reflex to titer will be performed ADDITIONAL INFORMATION This test was developed and its performance characteristics determined by [facility] in a manner consistent with CLIA requirements. This test has not been cleared or approved by the U.S. Food and Drug Administration. Test Performed by: [facility] [place] [address] Supervisor Final: Mau Thakkar Ph.D.; CLIA# [id number] Blood Peripheral blood specimen / Unknown Venipuncture / Unknown 07/07/2024 10:21 PM CDT 07/07/2024 10:36 PM CDT [facility] BLOOD ORDERABLES Performing Organization Address [facility] de Phone Number [facility] * Hepatitis B Surface Antibody (07/07/2024 10:21 PM CDT) Only the most recent of2 resultswithin the time period is included. Pathologist [facility] HBsAb Non Reactive 07/08/2024 9:23 AM CDT [facility] Blood Peripheral blood specimen / Unknown Venipuncture / Unknown 07/07/2024 10:21 PM CDT 07/07/2024 10:36 PM CDT Narrative [facility] - 07/08/2024 9:23 AM CDT Vaccinated individual: Reactive Unvaccinated individual: Non-Reactive [facility] LAB BLOOD ORDERABLES Performing Organization Address City/[facility]/ZIP Co de Phone Number [facility] Unless otherwise noted, all lab tests performed by: Division of Pathology and Laboratory Medicine [address] [place] [phone] * Hepatitis B Surface Ag (07/07/2024 10:21 PM CDT) Only the most recent of2 resultswithin the time period is included. [facility] HBsAg. Non Reactive Non Reactive 07/08/2024 9:22 AM CDT [facility] Blood Peripheral blood specimen / Unknown Venipuncture / Unknown 07/07/2024 10:21 PM CDT 07/07/2024 10:[address] [facility] LAB BLOOD ORDERABLES Performing Organization Address City/[facility] Co de Phone Number [facility] Unless otherwise noted, all lab tests performed by: Division of Pathology and Laboratory Medicine [address] [place] [phone] * Prothrombin Time with INR (07/07/2024 10:21 PM CDT) Only the most recent of4 resultswithin the time period is included. [facility] Prothrombin Time 12.8 11.9 - 14.5 second(s) 07/07/2024 11:42 PM CDT [facility] International Normalization Ratio 0.97 0.87 - 1.12 07/07/2024 11:42 PM CDT [facility] Blood Peripheral blood specimen / Unknown Venipuncture / Unknown 07/07/2024 10:21 PM CDT 07/07/2024 10:[address] [facility] LAB BLOOD ORDERABLES Performing Organization Address City/[facility]/ZIP Co de Phone Number [facility] Unless otherwise noted, all lab tests performed by: Division of Pathology and Laboratory Medicine [address] [place] [phone] * (ABNORMAL) Retic Auto (07/07/2024 10:21 PM CDT) Only the most recent of2 resultswithin the time period is included. [facility] Reticulocyte Count Automated 1.94 0.92 - 2.71 % 07/07/2024 10:48 PM CDT [facility] RETHE 32.9 29.9 - 38.4 pg 07/07/2024 10:48 PM CDT [facility] IRF 31.9(H) 4.4 - 22.0 % 07/07/2024 10:48 PM CDT [facility] Retic Absolute 0.0580 0.04 - 0.13 M/uL 07/07/2024 10:48 PM CDT [facility] Blood Peripheral blood specimen / Unknown Venipuncture / Unknown 07/07/2024 10:21 PM CDT 07/07/2024 10:[address] [facility] LAB BLOOD ORDERABLES Performing Organization Address City/[facility]/ZIP Co de Phone Number [facility] Unless otherwise noted, all lab tests performed by: Division of Pathology and Laboratory Medicine [address] [place] [phone] * (ABNORMAL) Phosphorus Level (07/07/2024 10:21 PM CDT) Only the most recent of21 resultswithin the time period is included. Pathologist [facility] Phosphorus Level 2.3(L) 2.5 - 4.5 mg/dL 07/07/2024 11:32 PM CDT [facility] Blood Peripheral blood specimen / Unknown Venipuncture / Unknown 07/07/2024 10:21 PM CDT 07/07/2024 10:[address] [facility] LAB BLOOD ORDERABLES Performing Organization Address City/[facility] Co de Phone Number [facility] Unless otherwise noted, all lab tests performed by: Division of Pathology and Laboratory Medicine [address] [place] [phone] * (ABNORMAL) Magnesium Level (07/07/2024 10:21 PM CDT) Only the most recent of22 resultswithin the time period is included. Magnesium Level 1.5(L) 1.6 - 2.6 mg/dL 07/07/2024 11:32 PM CDT [facility] Blood Peripheral blood specimen / Unknown Venipuncture / Unknown 07/07/2024 10:21 PM CDT 07/07/2024 10:[address] [facility] LAB BLOOD ORDERABLES Performing Organization Address City/[facility] Co de Phone Number [facility] Unless otherwise noted, all lab tests performed by: Division of Pathology and Laboratory Medicine [address] [place] [address] [phone] * (ABNORMAL) Haptoglobin (07/07/2024 10:21 PM CDT) Haptoglobin 263(H) 32 - 197 mg/dL 07/08/2024 11:29 AM CDT [facility] Blood Peripheral blood specimen / Unknown Venipuncture / Unknown 07/07/2024 10:21 PM CDT 07/07/2024 10:[address] [facility] LAB BLOOD ORDERABLES Performing Organization Address City/[facility] Co de Phone Number [facility] Unless otherwise noted, all lab tests performed by: Division of Pathology and Laboratory Medicine [address] [place] [phone] * IgM (07/07/2024 10:21 PM CDT) IgM 36 35 - 242 mg/dL 07/08/2024 11:29 AM CDT [facility] Blood Peripheral blood specimen / Unknown Venipuncture / Unknown 07/07/2024 10:21 PM CDT 07/07/2024 10:[address] [facility] LAB BLOOD ORDERABLES [facility] Unless otherwise noted, all lab tests performed by: Division of Pathology and Laboratory Medicine [address] [place] [phone] * (ABNORMAL) IgG (07/07/2024 10:21 PM CDT) [facility] IgG 1,628(H) 610 - 1,616 mg/dL 07/08/2024 11:29 AM CDT [facility] Blood Peripheral blood specimen / Unknown Venipuncture / Unknown 07/07/2024 10:21 PM CDT 07/07/2024 10:[address] [facility] LAB BLOOD ORDERABLES Performing Organization Address City/[facility] Co de Phone Number [facility] Unless otherwise noted, all lab tests performed by: Division of Pathology and Laboratory Medicine [address] [place] [phone] * Gastrointestinal Multiplex PCR Panel (07/06/2024 8:40 AM CDT) [facility] Campylobacter Not Detected Not Detected 07/06/2024 1:06 PM CDT [facility] Plesiomonas shigelloides Not Detected Not Detected 07/06/2024 1:06 PM CDT [facility] Salmonella Not Detected Not Detected 07/06/2024 1:06 PM CDT [facility] Vibrio Not Detected Not Detected 07/06/2024 1:06 PM CDT [facility] Vibrio cholerae Not Detected Not Detected 07/06/2024 1:06 PM CDT [facility] Yersinia enterocolitica Not Detected Not Detected 07/06/2024 1:06 PM CDT [facility] Enteroaggregative E. coli (EAEC) Not Detected Not Detected 07/06/2024 1:06 PM CDT [facility] Enteropathogenic E. coli (EPEC) Not Detected Not Detected 07/06/2024 1:06 PM CDT [facility] Enterotoxigenic E. coli (ETEC) LT/ST Not Detected Not Detected 07/06/2024 1:06 PM CDT [facility] Shiga-like toxin-producing E. coli (STEC) Stx1/Stx2 Not Detected Not Detected 07/06/2024 1:06 PM CDT [facility] E. coli O157 N/A Not Detected 07/06/2024 1:06 PM CDT [facility] Shigella/Enteroinvas ingrid E. coli (EIEC) Not Detected Not Detected 07/06/2024 1:06 PM CDT [facility] Cryptosporidium Not Detected Not Detected 07/06/2024 1:06 PM CDT [facility] Cyclospora cayetanensis Not Detected Not Detected 07/06/2024 1:06 PM CDT [facility] Entamoeba histolytica Not Detected Not Detected 07/06/2024 1:06 PM CDT [facility] Giardia lamblia Not Detected Not Detected 07/06/2024 1:06 PM CDT [facility] Adenovirus F40/41 Not Detected Not Detected 07/06/2024 1:06 PM CDT [facility] Astrovirus Not Detected Not Detected 07/06/2024 1:06 PM CDT [facility] Norovirus GI/GII Not Detected Not Detected 07/06/2024 1:06 PM CDT [facility] Rotavirus A Not Detected Not Detected 07/06/2024 1:06 PM CDT [facility] Sapovirus (I, II, IV, V) Not Detected Not Detected 07/06/2024 1:06 PM CDT [facility] C. difficile Refer to separate C. difficile DNA Detection assay for results. 07/06/2024 1:06 PM CDT [facility] Stool Rectum structure / Unknown Non-blood Collection / Unknown 07/06/2024 8:40 AM CDT 07/06/2024 9:18 AM CDT Narrative [facility] - 07/06/2024 1:06 PM CDT The assay is a qualitative multiplex PCR assay to aid in the diagnosis of gastrointestinal infection through simultaneous qualitative detection and identification of multiple GI pathogens in diarrheal specimens collected in [employer] transport media obtained from individuals suspected of gastrointestinal infections. Testing is performed using the [employer] Gastrointestinal (GI) Panel on the Digic[employer]panion System. The following organisms are identified using the [employer] GI Panel: Campylobacter spp., Plesiomonas shigelloides, Salmonella spp, Vibrio spp, including specific identification of Vibrio cholerae, Yersinia enterocolitica, Enteroaggregative Escherichia coli (EAEC), Enteropathogenic Escherichia coli (EPEC), Enterotoxigenic Escherichia coli (ETEC), Shiga-like toxin-producing Escherichia coli (STEC) including specific identification of the E. coli O157, Shigella spp/Enteroinvasive Escherichia coli (EIEC), Cryptosporidium, Cyclospora cayetanensis, Entamoeba histolytica, Giardia lamblia, Adenovirus F 40/41, Astrovirus, Norovirus GI/GII, Rotavirus, and Sapovirus. C. difficile testing is NOT reported in this assay and should be ordered separately. A result of Not Detected" does not exclude the possibility of the presence of one or more of the pathogens at or below the detection limits of this assay nor does it exclude the possibility of diarrheal pathogens not detected by this panel. Non-infectious causes of diarrhea should also be considered in such cases. [...] verified by the microbiology laboratory at the [facility] [place]. Results must be interpreted within the context of all relevant clinical and laboratory findings. Assay should not be used for monitoring response to therapy. Christine Mcdowell DO MICROBIOLOGY - [facility] AL ORDERABLES [facility] Unless otherwise noted, all lab tests performed by: Division of Pathology and Laboratory Medicine [address] [place] [phone] * (ABNORMAL) Fecal Occult Blood, Stool (07/06/2024 8:40 AM CDT) Only the most recent of2 resultswithin the time period is included. Fecal Occult Blood Positive( A) Negative 07/06/2024 12:41 PM CDT [facility] Comment:A positive result in dicates the presence of hemoglobin in the submitted fecal specimen. A positive result should not be considered conclusive evidence of the presence of GI bleeding or pathology. Recommend clinical correlation and further studies to establish the source of bleeding. Stool Rectum structure / Unknown Non-blood Collection / Unknown 07/06/2024 8:40 AM CDT 07/06/2024 9:18 AM CDT Narrative [facility] - 07/06/2024 12:41 PM CDT Fecal occult blood testing is performed using a qualitative immunoassay to specifically detect the presence of hemoglobin in human feces. The fecal immunochemical test (FIT) is performed on the [employer] Micro 80 iFOB from [employer]. This is an FDA-approved assay and its performance characteristics were verified by the microbiology laboratory at the [facility]. Results must be interpreted within the context of all relevant clinical and laboratory findings. [facility] DO MICROBIOLOGY - [facility] AL ORDERABLES [facility] Unless otherwise noted, all lab tests performed by: Division of Pathology and Laboratory Medicine [address] [place] [phone] * (ABNORMAL) C. difficile DNA Detection (07/06/2024 8:40 AM CDT) C. difficile - DNA Positive(A) Negative 07/06/2024 12:26 PM CDT [facility] C. difficile - EIA Negative Negative 07/06/2024 12:26 PM CDT [facility] C. difficile - Interpretation C. difficile EIA is performed only on stools positive for C. difficile DNA and detects the presence of C. difficile toxin proteins via a rapid immunoassay. Patients positive for C. difficile DNA with a negative EIA are less likely to have a C. difficile infection and may represent asymptomatic carriage. Recommend clinical assessment. If significant diarrhea present, C. difficile infection remains a possibility. 07/06/2024 12:26 PM CDT [facility] Stool Rectum structure / Unknown Non-blood Collection / Unknown 07/06/2024 8:40 AM CDT 07/06/2024 9:18 AM CDT Narrative [facility] - 07/06/2024 12:26 PM CDT Qualitative detection of C. difficile DNA performed using helicase-dependent amplification of a conserved region of a pathogenicity locus (PaLoc) in toxigenic C. difficile strains. It is an FDA-approved assay performed on the [employer] Instrument from [employer] and is intended for use as an aid in diagnosis of C. difficile infections. Testing is performed only on liquid stools. Detection of C difficile DNA does not differentiate between infection versus colonization. Stool specimens that are positive for C. difficile DNA undergo toxin antigen testing by C difficile EIA. The C. difficile EIA detects the presence of C. difficile Toxin A and B proteins via a rapid immunoassay using the FDA-approved ImmunoCard by Abigail Stewart. Patients positive for BOTH C. difficile DNA and toxin proteins by EIA are more likely to have a C. difficile infection. However, patients positive only for C. difficile DNA but negative for toxins by EIA are less likely to have a C. difficile infection and may represent asymptomatic colonization. Recommend clinical assessment in these cases. If significant diarrhea is present, C. difficile infection remains a possibility. When invalid results are obtained by either the primary or reflex method, a new specimen should be collected for repeat testing if clinically indicated. The performance characteristics of the C. difficile DNA and EIA assays were verified by the microbiology laboratory at the [facility]. Results must be interpreted within the context of all relevant clinical and laboratory findings. Christine Mcdowell DO MICROBIOLOGY - GENER AL ORDERABLES [facility] Unless otherwise noted, all lab tests performed by: Division of Pathology and Laboratory Medicine [address] [place] [phone] * Folate Level (07/06/2024 2:23 AM CDT) Only the most recent of2 resultswithin the time period is included. Folate Level 5.4 4.8 - 24.2 ng/mL 07/06/2024 3:35 AM CDT [facility] Is patient fasting? Yes 07/06/2024 3:35 AM CDT [facility] Blood Venous blood specimen / Unknown Venipuncture / Unknown 07/06/2024 2:23 AM CDT 07/06/2024 2:42 AM CDT Narrative [facility] - 07/06/2024 3:35 AM CDT Reference range established based on adult population. Yadiel Gomez MD LAB BLOOD ORD ERABLES Performing Organization Address City/[facility] Co de Phone Number [facility] Unless otherwise noted, all lab tests performed by: Division of Pathology and Laboratory Medicine [address] [place] [address] [phone] * Vitamin B12 Level (07/06/2024 2:23 AM CDT) Only the most recent of2 resultswithin the time period is included. Vitamin B12 Level 498 232 - 1,245 pg/mL 07/06/2024 3:36 AM CDT [facility] Is patient fasting? Yes 07/06/2024 3:36 AM CDT [facility] Blood Venous blood specimen / Unknown CVC Line / Unknown 07/06/2024 2:23 AM CDT 07/06/2024 2:42 AM CDT Narrative [facility] - 07/06/2024 3:36 AM CDT Reference range established based on adult population. Yadiel Gomez MD LAB BLOOD ORD ERACANDIE [facility] Unless otherwise noted, all lab tests performed by: Division of Pathology and Laboratory Medicine [address] [place] [address] [phone] * Transfuse RBC:Transfusion Date: 07/05/2024 (07/05/2024 4:59 PM CDT) Only the most recent of9 resultswithin the time period is included. Yadiel Gomez MD BLOOD TRANSFU ANDREW ORDERABLES * Prepare RBC:p4, 1 Units (07/05/2024 11:52 AM CDT) Only the most recent of7 resultswithin the time period is included. Product Code [id number] [facility] - TRANSFUSION SERVICES Product Code Text Red Blood Cells [facility] - TRANSFUSION [facility] QTY Ordered 1 [facility] - TRANSFUSION [facility] Dispense Status Transfused [facility] - TRANSFUSION SERVICES Unit Expiration [id number] [facility] - TRANSFUSION SERVICES Unit Number [id number] [facility] - TRANSFUSION SERVICES Unit Blood Type O+ [facility] - [facility]SF[facility]ION [facility] Bag Volume 277 [facility] - TRANSFUSION [facility] XM Interpretation Compatible U [id number] - TRANSFUSION [facility] Unit Blood Type Barcode 5100 [facility] - TRANSFUSION [facility] RBC Product Status 1 RBC approved [facility] - TRANSF[facility]ION [facility] Comment:Order Form 03 when r rosario for product issue. 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 B2 Blood Bank [facility] - TRANSFUSION SERVICES Blood Yadiel Gomez MD BLOOD BANK IA ODUCT ORDERABLES [facility] - TRANSFUSION SERVICES [facility] [address] [facility] [id number] [place] [address] * (ABNORMAL) Hemoglobin (07/05/2024 9:19 AM CDT) Hemoglobin 7.0(L) 13.3 - 17.4 g/dL 07/05/2024 9:49 AM CDT [facility] Blood Peripheral blood specimen / Unknown Venipuncture / Unknown 07/05/2024 9:19 AM CDT 07/05/2024 9:27 AM CDT Yadiel Gomez MD LAB BLOOD ORD ERABLES [facility] Unless otherwise noted, all lab tests performed by: Division of Pathology and Laboratory Medicine [address] [place] [phone] * (ABNORMAL) Transferrin with TIBC (07/05/2024 1:49 AM CDT) Only the most recent of3 resultswithin the time period is included. Transferrin 176(L) 200 - 360 mg/dL 07/05/2024 12:24 PM CDT [facility] Total Iron Binding Capacity 246(L) 250 - 450 mcg/dL 07/05/2024 12:24 PM CDT [facility] Blood Peripheral blood specimen / Unknown Venipuncture / Unknown 07/05/2024 1:49 AM CDT 07/05/2024 1:56 AM CDT Yadiel Gomez MD LAB BLOOD ORD ERABLES Performing Organization Address [facility] Co de Phone Number [facility] Unless otherwise noted, all lab tests performed by: Division of Pathology and Laboratory Medicine [address] [place] [phone] * (ABNORMAL) Iron Level (07/05/2024 1:49 AM CDT) Only the most recent of3 resultswithin the time period is included. Iron Level 27(L) 59 - 158 mcg/dL 07/05/2024 12:24 PM CDT [facility] Is patient fasting? 07/05/2024 12:24 PM CDT [facility] Blood Peripheral blood specimen / Unknown Venipuncture / Unknown 07/05/2024 1:49 AM CDT 07/05/2024 1:56 AM CDT Yadiel Gomez MD LAB BLOOD ORD ERABLES Performing Organization Address City/[facility]/ZIP Co de Phone Number [facility] Unless otherwise noted, all lab tests performed by: Division of Pathology and Laboratory Medicine [address] [place] [address] [phone] * (ABNORMAL) Ferritin Level (07/05/2024 1:49 AM CDT) Only the most recent of3 resultswithin the time period is included. Ferritin Level 670(H) 30 - 400 ng/mL 07/05/2024 12:31 PM CDT [facility] Blood Peripheral blood specimen / Unknown Venipuncture / Unknown 07/05/2024 1:49 AM CDT 07/05/2024 1:56 AM CDT Narrative [facility] - 07/05/2024 12:31 PM CDT Reference range established for age 20 - 60 years Yadiel Gomez MD LAB BLOOD ORD ERABLES [facility] Unless otherwise noted, all lab tests performed by: Division of Pathology and Laboratory Medicine [address] [place] [address] * Respiratory Multiplex PCR Panel, Nasopharyngeal Swab (07/04/2024 12:50 PM CDT) Adenovirus Not Detected Not Detected 07/04/2024 2:38 PM CDT [facility] Coronavirus 229E Not Detected Not Detected 07/04/2024 2:38 PM CDT [facility] Coronavirus HKU1 Not Detected Not Detected 07/04/2024 2:38 PM CDT [facility] Coronavirus NL63 Not Detected Not Detected 07/04/2024 2:38 PM CDT [facility] Coronavirus OC43 Not Detected Not Detected 07/04/2024 2:38 PM CDT [facility] COVID-19 (SARS-CoV-2) Not Detected Not Detected 07/04/2024 2:38 PM CDT [facility] Human Metapneumovirus Not Detected Not Detected 07/04/2024 2:38 PM CDT [facility] Human Rhinovirus/Enterov irus Not Detected Not Detected 07/04/2024 2:38 PM CDT [facility] Influenza A Not Detected Not Detected 07/04/2024 2:38 PM CDT [facility] Influenza A H1 Not Detected Not Detected 07/04/2024 2:38 PM CDT [facility] Influenza A H1 2009 Not Detected Not Detected 07/04/2024 2:38 PM CDT [facility] Influenza A H3 Not Detected Not Detected 07/04/2024 2:38 PM CDT [facility] Influenza B Not Detected Not Detected 07/04/2024 2:38 PM CDT [facility] Parainfluenza Virus 1 Not Detected Not Detected 07/04/2024 2:38 PM CDT [facility] Parainfluenza Virus 2 Not Detected Not Detected 07/04/2024 2:38 PM CDT [facility] Parainfluenza Virus 3 Not Detected Not Detected 07/04/2024 2:38 PM CDT [facility] Parainfluenza Virus 4 Not Detected Not Detected 07/04/2024 2:38 PM CDT [facility] Respiratory Syncytial Virus Not Detected Not Detected 07/04/2024 2:38 PM CDT [facility] Bordetella parapertussis Not Detected Not Detected 07/04/2024 2:38 PM CDT [facility] Bordetella pertussis Not Detected Not Detected 07/04/2024 2:38 PM CDT [facility] Chlamydophila pneumoniae Not Detected Not Detected 07/04/2024 2:38 PM CDT [facility] Mycoplasma pneumoniae Not Detected Not Detected 07/04/2024 2:38 PM CDT [facility] Swab Nasopharyngeal structure / Unknown Non-blood Collection / Unknown 07/04/2024 12:50 PM CDT 07/04/2024 1:05 PM CDT [facility] - 07/04/2024 2:38 PM CDT The assay is a qualitative multiplex PCR assay to aid in the diagnosis of respiratory pathogens through simultaneous qualitative detection and identification of multiple pathogens directly from nasopharyngeal swabs (HEALTH SAFETY ENGINEER) from individuals with respiratory symptoms. Testing is performed using the SharesPost FilmArray Respiratory Panel 2.1 (RP2.1) on the Digicompanion System. The following organisms are identified using the SharesPost RP 2.1 Panel: Adenovirus, Human Coronavirus (229E, [...] verified by the microbiology laboratory at the [facility] (CLIA Accreditation # [id number] and CAP Accreditation # [id number]). Results must be interpreted within the context of all relevant clinical and laboratory findings. Assay should not be used for monitoring response to therapy. Nery Rasheed MD MICROBIOLOGY - [employer] AL ORDERABLES Performing Organization Address City/[facility] Co de Phone Number [facility] Unless otherwise noted, all lab tests performed by: Division of Pathology and Laboratory Medicine [address] [place] [id number] * Urine Culture (07/04/2024 12:18 PM CDT) Only the most recent of2 resultswithin the time period is included. Urine Culture No Growth. 07/06/2024 7:25 AM CDT [facility] Urine Voided urine specimen / Unknown Non-blood Collection / Unknown 07/04/2024 12:18 PM CDT 07/04/2024 12:23 PM CDT Nery Rasheed MD MICROBIOLOGY - [employer] AL ORDERABLES Performing Organization Address City/[facility] Co de Phone Number [facility] Unless otherwise noted, all lab tests performed by: Division of Pathology and Laboratory Medicine [address] [place] [phone] * Urinalysis w/Microscopic if Indicated (07/04/2024 12:16 PM CDT) Only the most recent of2 resultswithin the time period is included. Urine Appearance Clear Clear 07/04/20 12:27 PM CDT [facility] Urine Color Colorless Colorless, Straw, Yellow, Dark Yellow, Straw-Yellow 07/04/2024 12:27 PM CDT [facility] Urine Specific Nursery 1.008 1.003 - 1.035 07/04/2024 12:27 PM CDT [facility] Urine pH 6.0 5.0 - 8.0 07/04/2024 12:27 PM CDT [facility] Urine Glucose Negative Negative mg/dL 07/04/2024 12:27 PM CDT [facility] Urine Ketones Negative Negative mg/dL 07/04/2024 12:27 PM CDT [facility] Urine Blood Negative Negative 07/04/2024 12:27 PM CDT [facility] Urine Protein Negative Negative mg/dL 07/04/2024 12:27 PM CDT [facility] Urine Bilirubin Negative Negative 12:27 PM CDT [facility] Urine Urobilinogen Negative Negative 07/04/2024 12:27 PM CDT [facility] Urine Nitrite Negative Negative 07/04/2024 12:27 PM CDT [facility] Urine Leukocyte Esterase Negative Negative 07/04/2024 12:27 PM CDT [facility] Urine Voided urine specimen / Unknown Non-blood Collection / Unknown 07/04/2024 12:16 PM CDT 07/04/2024 12:23 PM CDT Narrative [facility] - 07/04/2024 12:27 PM CDT Some reporting parameters within the Urinalysis test have changed due to the implementation of new instrumentation in the [facility] [place], allowing greater sensitivity of measurement. Urinalysis results reported by the [facility] using existing instrumentation, as well as Urinalysis testing performed manually or by back-up methodology at the main [place], will remain relatively unchanged. New reporting parameters and units will now be reported for all campuses. No microscopic exam performed; physiochemical findings are negative Jose Alfredo Boss MD URINE ORDERABLES [facility] Unless otherwise noted, all lab tests performed by: Division of Pathology and Laboratory Medicine [facility] [place] [address] * (ABNORMAL) POC VBG+LAC (07/04/2024 12:11 PM CDT) Only the most recent of2 resultswithin the time period is included. POC VB pH. 7.320 7.310 - 7.410 07/04/2024 12:16 PM CDT [facility] POC VB pCO2. 37.1(L) 41.0 - 51.0 mmHg 07/04/2024 12:16 PM CDT [facility] POC VB pO2. 35 mmHg 07/04/2024 12:16 PM CDT [facility] POC VB TCO2 20(L) 24 - 29 mmol/L 07/04/2024 12:16 PM CDT [facility] POC VB Bicarb 19.1(L) 23.0 - 28.0 mmol/L 07/04/2024 12:16 PM CDT [facility] POC VB Base Excess -6(L) -2 - 3 mmol/L 07/04/2024 12:16 PM CDT [facility] POC VB O2 Sat 63 % 07/04/2024 12:16 PM CDT [facility] POC VB LAC 0.86(L) 0.90 - 1.70 mmol/L 07/04/2024 12:16 PM CDT [facility] POC FiO2 07/04/2024 12:16 PM CDT [facility] POC Sample Type Venous 07/04/2024 12:16 PM CDT [facility] Blood 07/04/2024 12:1 1 PM CDT 07/04/2024 12:16 PM CDT Narrative [facility] - 07/04/2024 12:16 PM CDT Method description: [...] ORDERABLES - DE VICE Performing Organization Address [facility]/ZIP Co de Phone Number [facility] Unless otherwise noted, all lab tests performed by: Division of Pathology and Laboratory Medicine [address] [place] [phone] * (ABNORMAL) Procalcitonin (PCT) (07/04/2024 12:04 PM CDT) Only the most recent of2 resultswithin the time period is included. Procalcitonin 1.48(H) <=0.08 ng/mL 07/04/2024 1:00 PM CDT [facility] Blood Venous blood specimen / Unknown CVC Line / Unknown 07/04/2024 12:04 PM CDT 07/04/2024 12:17 PM CDT Narrative [facility] - 07/04/2024 1:00 PM CDT Procalcitonin > [...] with extended dilution as it exceeds the sharepoint net developer's recommended limit. Caution should be exercised when interpreting such values and done in conjunction with clinical context. Jose Alfredo Boss MD LAB BLOOD ORDERABLES Performing Organization Address City/[facility]/ZIP Co de Phone Number [facility] Unless otherwise noted, all lab tests performed by: Division of Pathology and Laboratory Medicine [address] [place] [phone] * Fractionated Bilirubin (07/04/2024 12:04 PM CDT) Bilirubin Direct <0.2 0.0 - 0.3 mg/dL 07/04/2024 1:00 PM CDT [facility] Comment:Indocyanine Green (I CG) may cause falsely elevated bilirubin results. Total and direct bilirubin must not be measured from samples containing indocyanine green. Bilirubin Indirect 2023 1:00 PM CDT [facility] Comment:Unable to calculate Indirect Bilirubin result due to some parameters are outside reportable range Bilirubin Total 0.3 0.0 - 1.2 mg/dL 07/04/2024 1:00 PM CDT [facility] Comment: Indocyanine Green (ICG) may cause falsely [...] Jose Alfredo Boss MD LAB BLOOD ORDERABLES [facility] Unless otherwise noted, all lab tests performed by: Division of Pathology and Laboratory Medicine [address] [place] [phone] * Blood culture (07/04/2024 12:04 PM CDT) Only the most recent of4 resultswithin the time period is included. Blood Culture No Growth. 07/09/2024 2:02 PM CDT [facility] Blood Peripheral blood specimen / Unknown CVC Line / Unknown 07/04/2024 12:04 PM CDT 07/04/2024 12:17 PM CDT Jose Alfredo Boss MD MICROBIOLOGY - GENER AL ORDERABLES [facility] Unless otherwise noted, all lab tests performed by: Division of Pathology and Laboratory Medicine [address] [place] [phone] * CRP (C-reactive protein) (07/04/2024 12:04 PM CDT) Only the most recent of2 resultswithin the time period is included. [facility] CRP (C Reactive Protein) 69.25 mg/L 07/04/2024 1:12 PM CDT [facility] Blood Venous blood specimen / Unknown CVC Line / Unknown 07/04/2024 12:04 PM CDT 07/04/2024 12:17 PM CDT Narrative [facility] - 07/04/2024 1:12 PM CDT Adult Reference ranges for HS CRP assay are as follows: Reference ranges when used to assess cardiac risk: <1.00 mg/L Low cardiovascular risk 1.00-3.00 mg/L Average cardiovascular risk >3.00 mg/L High cardiovascular risk Reference ranges when used to assess inflammatory responses: Less than or equal to 10.00 mg/L. Jose Alfredo Boss MD LAB BLOOD ORDERABLES [facility] Unless otherwise noted, all lab tests performed by: Division of Pathology and Laboratory Medicine [address] [place] [phone] * (ABNORMAL) LDH (07/04/2024 12:04 PM CDT) [facility] LDH 255(H) 135 - 225 U/L 07/04/2024 12:53 PM CDT [facility] Blood Venous blood specimen / Unknown CVC Line / Unknown 07/04/2024 12:04 PM CDT 07/04/2024 12:17 PM CDT Narrative [facility] - 07/04/2024 12:53 PM CDT Results greater than 1651 U/L may not be reliable due to matrix effect with extended dilution as it exceeds the sharepoint net developer's recommended limit. Caution should be exercised when interpreting such values and done in conjunction with clinical context. Jose Alfredo Boss MD LAB BLOOD ORDERABLES [facility] Unless otherwise noted, all lab tests performed by: Division of Pathology and Laboratory Medicine [address] [place] [phone] * OSI CT CHEST ABDOMEN PELVIS (07/04/2024 9:18 AM CDT) Narrative Systemgenerated, Documentation - 07/05/2024 9:18 AM CDT Study acquired at another institution. For comparison only. No [facility] originated interpretation requested or available. Nery Rasheed MD IMG OUTSIDE IMAGE OR DERABLES * OSI Chest (07/04/2024 9:17 AM CDT) Narrative Systemgenerated, Documentation - 07/05/2024 9:17 AM CDT Study acquired at another institution. For comparison only. No [facility] originated interpretation requested or available. Nery PAGEG OUTSIDE IMAGE OR DERABLES * Galectin-3 (06/29/2024 9:49 AM CDT) Only the most recent of4 resultswithin the time period is included. Galectin3 S-Boland 20.4 <=22.1 ng/mL 07/05/2024 11:58 AM CDT [facility] Comment: Elevated galectin-3 is associated with greater cardiovascular risk and poor outcome in heart failure patients: </= 17.8 ng/mL (low risk); 17.9-25.9 ng/mL (intermediate risk); >25.9 ng/mL (high risk). Results should be interpreted in the context of the individual patient presentation. Test Performed by: [address] [address] Supervisor Final: Mau Thakkar Ph.D.; CLIA# [id number] Blood Venous blood specimen / Unknown CVC Line / Unknown 06/29/2024 9:49 AM CDT 06/29/2024 9:52 AM CDT Marbella GRAJEDA LAB BLOOD ORDERABLES [facility] * ID Portable Fluoroscopy (C-Arm) (CPT 33315) (06/19/2024 11:57 AM CDT) Narrative Systemgenerated, Documentation - 06/19/2024 11:57 AM CDT This procedure requires no interpretation from the radiologist. Al Quick IV, MD IMG FLUOROSCOPY ORDERABLES * Pathology Surgical Interpretation (06/19/2024 8:42 AM CDT) Submitted Clinical History Calculus of kidney and ureter [N20.2] 06/22/2024 6:17 AM CDT [facility] Diagnosis A: Stone(s), right ureter, gross only, right ureteral stone for stone analysis: Calculi. Specimen submitted for chemical analysis. PT 06/22/2024 6:17 AM CDT [facility] Gross Description A: Stone(s), right ureter, gross only, right ureteral stone for stone analysis---or#37: Consists of multiple fragments of luque-brown, indurated calculi (0.3 x 0.3 x 0.2 cm to 0.5 x 0.5 x 0.4 cm). The specimen is sent for stone analysis. Gross examination only. EF 06/22/2024 6:17 AM CDT [facility] Biomarker Block(s) Tumor block: N/A Normal block: N/A 06/22/2024 6:17 AM CDT [facility] Disclaimer "Some tests reported here may have been developed and performance characteristics determined by [facility] Pathology and Laboratory Medicine. These tests have not been specifically cleared or approved by the U.S. Food and Drug Administration. If applicable, controls were reviewed and showed appropriate reactivity." 06/22/2024 6:17 AM CDT [facility] Stone (Stone(s), Right Ureter, Gross Only) 06/19/2024 8:42 AM CDT 06/21/2024 7:38 AM CDT Al Quick IV, MD LAB PATHOLOGY OR DERABLES [facility] [place] [address] [place] [address], * Stone Analysis Kidney (06/19/2024 8:42 AM CDT) Stn Anl Kidney DNR 07/01/2024 2:00 PM CDT [facility] Stn Anl Kidney Source Right Ureter 07/01/2024 2:00 PM CDT [facility] Stn Anl Kidney Interp SEE COMMENTS 07/01/2024 2:00 PM CDT [facility] Comment:RESULT: 100% Calcium oxalate monohydrate. Result Comment SEE COMMENTS 07/01/2024 2:00 PM CDT [facility] Comment: For stones containing calcium oxalate, calcium phosphate, and/or uric acid, a 24 hr urinary supersaturation test may help detect underlying risk factors for this type of stone formation and provide guidance for a stone prevention strategy. ADDITIONAL INFORMATION This test was developed and its performance characteristics determined by [facility] in a manner consistent with CLIA requirements. This test has not been cleared or approved by the U.S. Food and Drug Administration. Test Performed by: [facility] [place] [id number] Supervisor Final: Mau Thakkar Ph.D.; CLIA# [id number] Other (Renal Stone) Non-blood Collection / Unknown 06/19/2024 8:42 AM CDT 06/21/2024 10:24 AM CDT Al Quick IV, MD URINE ORDERABLES [facility] * [facility] CP PRMYEF (06/15/2024 7:31 AM CDT) Only the most recent of14 resultswithin the time period is included. Blood Venous blood specimen / Unknown CVC Line / Unknown 06/15/2024 7:31 AM CDT 06/15/2024 7:40 AM CDT Marbella GRAJEDA LAB BLOOD ORDERABLES TRISHA ASHRAF [facility] TRISHA ASHRAF [address] [facility], [facility] [address] [place] [id number] * Implanted Port Removal (06/07/2024 10:15 AM CDT) Anatomical Region Laterality Modality Ultrasound Narrative 06/07/2024 10:18 AM CDT Title of Procedure: Port Removal Date/Time: 06/07/24 Proceduralist Type: Advanced Practice Provider Proceduralist: Kathie Mina APRN, AGACNP Ordered By: NICCI Pemberton Procedure Location: Outpatient Procedure Bank Boss present: no Machine Technician: no 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 Informed consent obtained prior to procedure, the risks, benefits, and alternative discussed with patient/designated market survey representative. Pre-procedure the patient was VAP pre-procedure patient [...] completely dried prior to procedure according to sharepoint net developer guidelines. Maximum sterile barriers were used- sterile [...] post-op care. Comments Scrub: Elvia Blount MA Manager Customer: David Simmons RN Marbella [facility] ORDERABLES * X-ray Chest 1 View [...] Insertion Proceduralist: Clyde Benavidez RN Ordered By: NICCI Pemberton Procedure Location: Outpatient Procedure Bank Boss Present: Yes David Simmons RN Pre Procedure [...] risks, benefits, and alternative dicussed with patient/designated market survey representative. Time out: universal protocol time out performed [...] the time period is included. Narrative Clyde Benavidez, RN - 06/07/2024 7:00 AM CDT Clyde Benavidez RN 06/19/2024 2:18 AM Central Vascular Access Device Tip Verification Performed by: Clyde Benavidez, RN Authorized by: Marbella Pereira PA CVAD Properties Date device placed: 06/07/2024 Placed by: Clyde benavidez RN Device placement location: [facility] Catheter Type: PICC Catheter lumen: Double lumen Vein location: Basilic Laterality: Right Tip Verification Properties Diagnostic image available: Chest xray Written diagnostic report available: Yes Tip location per report: Superior vena cava (per radiologist report, Tru Cobb MD) Tip in good position and cleared for infusion Marbella GRAJEDA IV THERAPY ORDERABLE S * (ABNORMAL) MDA CP PLATELET COUNT (06/07/2024 6:45 AM CDT) Platelet 117(L) 160 - 397 K/uL 06/07/2024 6:55 AM CDT [facility] Mean Platelet Volume 9.2 9.1 - 12.6 fL 06/07/2024 6:55 AM CDT [facility] Blood Peripheral blood specimen / Unknown Venipuncture / Unknown 06/07/2024 6:45 AM CDT 06/07/2024 6:47 AM CDT Marbella GRAJEDA LAB BLOOD ORDERABLES [facility] Unless otherwise noted, all lab tests performed by: Division of Pathology and Laboratory Medicine [address] [place] [phone] * (ABNORMAL) Hemogram (05/28/2024 5:38 PM CDT) Only the most recent of3 resultswithin the time period is included. White Blood Cell 6.8 4.1 - 10.5 K/uL 05/28/2024 6:38 PM CDT [facility] Red Blood Cell 3.41(L) 4.30 - 6.04 M/uL 05/28/2024 6:38 PM CDT [facility] Hemoglobin 10.1(L) 13.3 - 17.4 g/dL 05/28/2024 6:38 PM CDT [facility] Hematocrit 31.1(L) 39.5 - 51.8 % 05/28/2024 6:38 PM CDT [facility] Mean Cell Volume 91 82 - 99 fL 05/28/2024 6:38 PM CDT [facility] Mean Cell Hemoglobin 29.6 26.6 - 33.2 pg 05/28/2024 6:38 PM CDT [facility] Mean Cell Hemoglobin Concentration 32.5 31.1 - 35.2 g/dL 05/28/2024 6:38 PM CDT [facility] RDW-SD 72.4(H) 37.5 - 49.7 fL 05/28/2024 6:38 PM CDT [facility] Red Cell Diameter Width 22.2(H) 11.6 - 15.5 % 05/28/2024 6:38 PM CDT [facility] Platelet 237 160 - 397 K/uL 05/28/2024 6:38 PM CDT [facility] Mean Platelet Volume 10.1 9.1 - 12.6 fL 05/28/2024 6:38 PM CDT [facility] INRBC 0.0 0.0 - 0.1 /100 WBC 05/28/2024 6:38 PM CDT [facility] Comment: The INRBC (instrument NRBC) value reflects [...] CDT Graeme Suarez MD LAB BLOOD ORDERABLES [facility] Unless otherwise noted, all lab tests performed by: Division of Pathology and Laboratory Medicine [address] [place] [phone] * Folate, RBC (05/26/2024 5:34 AM CDT) Folate, RBC 814 >280 ng/mL RBC 05/27/2024 5:10 PM CDT [facility] Blood Peripheral blood specimen / Unknown Venipuncture / Unknown 05/26/2024 5:34 AM CDT 05/26/2024 6:12 AM CDT Narrative [facility] - 05/27/2024 5:10 PM CDT Performing Organization Information: [facility] [address] [place] [phone] Safia Bell Graeme Suarez MD LAB BLOOD ORDERABLES Performing Organization Address [facility] Co de Phone Number ULYSSES RILEY) * Methylmalonic Acid Quant, Serum (05/26/2024 5:34 AM CDT) Pathologist [facility] MMA Quant-Boland 0.25 <=0.40 nmol/mL 05/30/2024 9:20 AM CDT [facility] Comment: ADDITIONAL INFORMATION This test was developed and its performance characteristics determined by [facility] in a manner consistent with CLIA requirements. This test has not been cleared or approved by the U.S. Food and Drug Administration. Test Performed by: [facility] - [address] [address] Supervisor Final: Mau Thakkar Ph.D.; CLIA# [id number] Blood Peripheral blood specimen / Unknown Venipuncture / Unknown 05/26/2024 5:34 AM CDT 05/26/2024 6:12 AM CDT Graeme Suarez MD LAB BLOOD ORDERABLES Performing Organization Address City/[facility]/ZIP Co de Phone Number [facility] * (ABNORMAL) Copper Level (05/26/2024 5:34 AM CDT) Pathologist [facility] Copper, S 162(H) 73 - 129 mcg/dL 05/28/2024 11:[address] [facility] Comment: ADDITIONAL INFORMATION This test was developed and its performance characteristics determined by [facility] in a manner consistent with CLIA requirements. This test has not been cleared or approved by the U.S. Food and Drug Administration. Test Performed by: [facility] [address] [place] [address] Supervisor Final: Mau Thakkar Ph.D.; CLIA# [id number] Blood Peripheral blood specimen / Unknown Venipuncture / Unknown 05/26/2024 5:34 AM CDT 05/26/2024 6:12 AM CDT Graeme Suarez MD LAB BLOOD ORDERABLES Performing Organization Address City/[facility]/ZIP Co de Phone Number [facility] * Vitamin D 25OH (05/26/2024 5:34 AM CDT) [facility] Vitamin D 25 OH 49 30 - 100 ng/mL 05/26/2024 7:04 AM CDT [facility] Blood Peripheral blood specimen / Unknown Venipuncture / Unknown 05/26/2024 5:34 AM CDT 05/26/2024 6:12 AM CDT Narrative [facility] - 05/26/2024 7:04 AM CDT Reference Range: Deficiency: <=20 ng/mL Insufficiency: 21-29 ng/mL Sufficiency: 30-100 ng/mL Potential toxicity: >100 ng/mL Graeme Suarez MD LAB BLOOD ORDERABLES [facility] Unless otherwise noted, all lab tests performed by: Division of Pathology and Laboratory Medicine [address] [place] [phone] * (ABNORMAL) Vitamin E Level (05/26/2024 5:34 AM CDT) [facility] A-Tocopherol, Vit E-[place] 19.6(H) 5.5 - 17.0 mg/L 05/30/2024 3:16 PM CDT [facility] Comment: ADDITIONAL INFORMATION This test was developed and its performance characteristics determined by [facility] in a manner consistent with CLIA requirements. This test has not been cleared or approved by the U.S. Food and Drug Administration. Test Performed by: [facility] [place] [address] Supervisor Final: Mau Thakkar Ph.D.; CLIA# [id number] Blood Peripheral blood specimen / Unknown Venipuncture / Unknown 05/26/2024 5:34 AM CDT 05/26/2024 6:12 AM CDT Graeme Suarez MD LAB BLOOD ORDERABLES Performing Organization Address [facility]/[place] [facility] de Phone Number [facility] * Vitamin B1 Level (05/26/2024 5:34 AM CDT) [facility] 103 70 - 180 nmol/L 05/31/2024 8:43 AM CDT [facility] Comment: ADDITIONAL INFORMATION This test was developed and its performance characteristics determined by [facility] in a manner consistent with CLIA requirements. This test has not been cleared or approved by the U.S. Food and Drug Administration. Test Performed by: [facility] - [address] [address] Supervisor Final: Mau Thakkar Ph.D.; CLIA# [id number] Blood Peripheral blood specimen / Unknown Venipuncture / Unknown 05/26/2024 5:34 AM CDT 05/26/2024 6:12 AM CDT Graeme Suarez MD LAB BLOOD ORDERABLES Performing Organization Address [facility] de Phone Number [facility] BEAKER * (ABNORMAL) Vitamin B6 Level (05/26/2024 5:34 AM CDT) PALP-Boland 3(L) 5 - 50 mcg/L 05/31/2024 4:02 AM CDT [facility] Comment: ADDITIONAL INFORMATION This test was developed and its performance characteristics determined by [facility] in a manner consistent with CLIA requirements. This test has not been cleared or approved by the U.S. Food and Drug Administration. Pyridoxic Acid (PA)-[place] 6 3 - 30 mcg/L 05/31/2024 4:02 AM CDT [facility] Comment: ADDITIONAL INFORMATION This test was developed and its performance characteristics determined by [facility] in a manner consistent with CLIA requirements. This test has not been cleared or approved by the U.S. Food and Drug Administration. Test Performed by: [facility] [place] [address] Supervisor Final: Mau Thakkar Ph.D.; CLIA# [id number] Blood Peripheral blood specimen / Unknown Venipuncture / Unknown 05/26/2024 5:34 AM CDT 05/26/2024 6:12 AM CDT Graeme Suarez MD LAB BLOOD ORDERABLES LEADORE RYNE SERRANO * Homocysteine Total (05/26/2024 5:34 AM CDT) Homocysteine Total 12.8 <=15.0 mcmol/L 05/26/2024 6:34 AM CDT [facility] Blood Peripheral blood specimen / Unknown Venipuncture / Unknown 05/26/2024 5:34 AM CDT 05/26/2024 6:13 AM CDT Narrative [facility] - 05/26/2024 6:34 AM CDT Reference range established based on adult population Graeme Suarez MD LAB BLOOD ORDERABLES [facility] Unless otherwise noted, all lab tests performed by: Division of Pathology and Laboratory Medicine [facility] [place] [address] * (ABNORMAL) Hepatic Function Panel (05/25/2024 4:48 AM CDT) Bilirubin Total <0.3 0.0 - 1.2 mg/dL 05/25/2024 4:02 PM CDT [facility] Comment: Direct and indirect bilirubin will not be reported when Total bilirubin result is <0.3 mg/dL Indocyanine Green (ICG) may cause falsely elevated bilirubin results. Total and direct bilirubin must not be measured from samples containing indocyanine green. False elevation of total bilirubin can be seen in patients with IgG concentrations above 28 g/L. Bilirubin Direct 05/25/20 24 4:02 PM CDT [facility] Comment: Direct and indirect bilirubin will not be reported when Total bilirubin result is <0.3 mg/dL Indocyanine Green (ICG) may cause falsely elevated bilirubin results. Total and direct bilirubin must not be measured from samples containing indocyanine green. Bilirubin Indirect 2023 4:02 PM CDT [facility] Comment:Direct and indirect bilirubin will not be reported when Total bilirubin result is <0.3 mg/dL Tot Protein 6.6 6.4 - 8.3 gm/dL 05/25/2024 4:02 PM CDT [facility] Alkaline Phosphatase 176(H) 40 - 129 U/L 05/25/2024 4:02 PM CDT [facility] Albumin Level 3.2(L) 3.5 - 5.2 gm/dL 05/25/2024 4:02 PM CDT [facility] AST 42(H) <=40 U/L 05/25/2024 4:02 PM CDT [facility] ALT 38 <=41 U/L 05/25/2024 4:02 PM CDT [facility] Blood Peripheral blood specimen / Unknown Venipuncture / Unknown 05/25/2024 4:48 AM CDT 05/25/2024 5:09 AM CDT Graeme Suarez MD LAB BLOOD ORDERABLES [facility] Unless otherwise noted, all lab tests performed by: Division of Pathology and Laboratory Medicine [facility] [place] [address] * (ABNORMAL) Basic Metabolic Panel- Total Calcium (05/25/2024 4:48 AM CDT) Only the most recent of11 resultswithin the time period is included. eGFR 57(L) >=60 mL/min/1. 73 sq. m 05/25/2024 5:59 AM CDT [facility] Comment: The eGFRcr is calculated with the [...] - 10.2 mg/dL 05/25/2024 5:59 AM CDT [facility] Sodium Level 138 136 - 145 mmol/L 05/25/2024 5:59 AM CDT [facility] Potassium Level 4.4 3.4 - 4.5 mmol/L 05/25/2024 5:59 AM CDT [facility] Chloride 106 98 - 107 mmol/L 05/25/2024 5:59 AM CDT [facility] CO2 24 22 - 29 mmol/L 05/25/2024 5:59 AM CDT [facility] Anion Gap 8 4 - 14 mmol/L 05/25/2024 5:59 AM CDT [facility] Creatinine 1.27(H) 0.67 - 1.17 mg/dL 05/25/2024 5:59 AM CDT [facility] BUN 23 6 - 23 mg/dL 05/25/2024 5:59 AM CDT [facility] Glucose Level 144(H) 70 - 99 mg/dL 05/25/2024 5:59 AM CDT [facility] Comment: Effective 06/12/16, the glucose reference intervals have been updated based on [place] Diabetes Association guidelines (Standards of Medical Care [...] CDT Gale Sharp MD LAB BLOOD ORDERABLES [facility] Unless otherwise noted, all lab tests performed by: Division of Pathology and Laboratory Medicine [address] [place] [id number] * aPTT (05/25/2024 4:48 AM CDT) Only the most recent of2 resultswithin the time period is included. Activated PTT 29.1 24.1 - 35.5 second(s) 05/25/2024 5:40 AM CDT [facility] Blood Peripheral blood specimen / Unknown Venipuncture / Unknown 05/25/2024 4:48 AM CDT 05/25/2024 5:09 AM CDT Mert Haque APRN LAB BLOOD ORDERABLES Performing Organization Address [facility] Co de Phone Number [facility] Unless otherwise noted, all lab tests performed by: Division of Pathology and Laboratory Medicine [address] [place] [phone] * Fibrinogen (05/25/2024 4:48 AM CDT) Fibrinogen 443 214 - 503 mg/dL 05/25/2024 5:40 AM CDT [facility] Blood Peripheral blood specimen / Unknown Venipuncture / Unknown 05/25/2024 4:48 AM CDT 05/25/2024 5:09 AM CDT Mert Haque APRN LAB BLOOD ORDERABLES Performing Organization Address [facility] Co de Phone Number [facility] Unless otherwise noted, all lab tests performed by: Division of Pathology and Laboratory Medicine [address] [place] [phone] * EKG, 12-Lead (05/18/2024) Christopher Duran MD ECG ORDERABLES Performing Organization Address [facility] Co de Phone Number JORGE IECG * (ABNORMAL) Hemoglobin A1c (05/16/2024 2:54 AM CDT) Only the most recent of2 resultswithin the time period is included. Hemoglobin A1c 7.0(H) 4.3 - 5.6 % 05/16/2024 1:00 PM CDT [facility] Blood Peripheral blood specimen / Unknown Venipuncture / Unknown 05/16/2024 2:54 AM CDT 05/16/2024 3:29 AM CDT Narrative [facility] - 05/16/2024 1:00 PM CDT HbA1c values >=6.5% are diagnostic of diabetes mellitus. Diagnosis should be confirmed by repeat testing. Therapeutic Action suggested: >8.0% HbA1c; Goal of therapy: <7.0% HbA1c Partha Gutierrez MD LAB BLOOD ORDERABLES [facility] Unless otherwise noted, all lab tests performed by: Division of Pathology and Laboratory Medicine [facility] [place] [address] * X-ray Chest 1 View (05/15/2024 9:33 [...] radiologicfindings that are unexpected and potentially actionable. Shayy Perdomo MD IM DIAGNOSTIC I MAGING ORDERABLES * (ABNORMAL) Urinalysis with Microscopic (05/14/2024 6:26 PM CDT) Urine Appearance Clear Clear 05/14/20 9:15 PM CDT [facility] Comment:This result was prev iously suppressed from the chart. Urine Color Straw Colorless, Straw, Yellow, Dark Yellow, Straw-Yello w 05/14/2024 9:15 PM CDT [facility] Comment:This result was prev iously suppressed from the chart. Urine Specific Nursery 1.020 1.003 - 1.035 05/14/2024 9:15 PM CDT [facility] Comment:This result was prev iously suppressed from the chart. Urine pH 6.0 5.0 - 8.0 05/14/2024 9:15 PM CDT [facility] Comment:This result was prev iously suppressed from the chart. Urine Glucose 70(A) Negative mg/dL 05/14/2024 9:15 PM CDT [facility] Comment:This result was prev iously suppressed from the chart. Urine Ketones Negative Negative mg/dL 05/14/2024 9:15 PM CDT [facility] Comment:This result was prev iously suppressed from the chart. Urine Blood Moderate(A) Negative 05/14/2024 9:15 PM CDT [facility] Comment:This result was prev iously suppressed from the chart. Urine Protein 50(A) Negative mg/dL 05/14/2024 9:15 PM CDT [facility] Comment:This result was prev iously suppressed from the chart. Urine Bilirubin Negative Negative 9:15 PM CDT [facility] Urine Urobilinogen Negative Negative 05/14/2024 9:15 PM CDT [facility] Urine Nitrite Negative Negative 05/14/2024 9:15 PM CDT [facility] Comment:This result was prev iously suppressed from the chart. Urine Leukocyte Esterase Small(A) Negative 05/14/2024 9:15 PM CDT [facility] Comment:This result was prev iously suppressed from the chart. Urine WBC 7(H) <=2 /HPF 05/14/2024 9:15 PM CDT [facility] Urine RBC 8(H) <=2 /HPF 05/14/2024 9:15 PM CDT [facility] Urine Mucous Trace Not Seen, Trace /HPF 05/14/2024 9:15 PM CDT [facility] Comment:This result was prev iously suppressed from the chart. Urine Bacteria OCC(A) Not Seen /HPF 05/14/2024 9:15 PM CDT [facility] Comment:This result was prev iously suppressed from the chart. Urine Squamous Epithelial Cells OCC Not Seen, OCC, Rare /HPF 05/14/2024 9:15 PM CDT [facility] Comment:This result was prev iously suppressed from the chart. Urine Hyaline Casts 6(H) <=2 /LPF 05/14/2024 9:15 PM CDT [facility] Urine Voided urine specimen / Unknown Non-blood Collection / Unknown 05/14/2024 6:26 PM CDT 05/14/2024 8:55 PM CDT Narrative [facility] - 05/14/2024 9:15 PM CDT Some reporting parameters within the Urinalysis test have changed due to the implementation of new instrumentation in the Main [place], allowing greater sensitivity of measurement. Urinalysis results reported by the [facility] using existing instrumentation, as well as Urinalysis testing performed manually or by back-up methodology at the main campus, will remain relatively unchanged. New reporting parameters and units will now be reported for all campuses. Shayy Perdomo MD URINE ORDERABLES [facility] Unless otherwise noted, all lab tests performed by: Division of Pathology and Laboratory Medicine [facility] [place] [address] * Echocardiogram 2D Complete (05/14/2024 4:10 PM [...] CV ECHO ORDERABL ES Performing Organization Address City/[facility]/ZIP Co de Phone Number ISCV * (ABNORMAL) NT-Pro BNP (In-House) (05/14/2024 10:09 AM CDT) Only the most recent of2 resultswithin the time period is included. NT-ProBNP 772(H) <=450 pg/mL 05/14/2024 12:31 PM CDT [facility] Blood Peripheral blood specimen / Unknown Venipuncture / Unknown 05/14/2024 10:09 AM CDT 05/14/2024 10:18 AM CDT Shayy Perdomo MD LAB BLOOD ORDERA BLES [facility] Unless otherwise noted, all lab tests performed by: Division of Pathology and Laboratory Medicine [address] [place] [address], [place] [address] * CT Abdomen Pelvis with and without [...] Urinalysis Microscopic Exam (05/12/2024 3:32 PM CDT) [facility] Urine Mucous Not Seen Not Seen, Trace /HPF 05/12/2024 4:00 PM CDT [facility] Urine Bacteria Not Seen Not Seen /HPF 05/12/2024 4:00 PM CDT [facility] Urine Squamous Epithelial Cells Not Seen Not Seen, OCC, Rare /HPF 05/12/2024 4:00 PM CDT [facility] Urine WBC 16(H) <=2 /HPF 05/12/2024 4:00 PM CDT [facility] Urine RBC >182(H) <=2 /HPF 05/12/2024 4:00 PM CDT [facility] Urine (Urine Clean Catch) Non-blood Collection / Unknown 05/12/2024 3:32 PM CDT 05/12/2024 3:41 PM CDT Ramirez Rasheed MD LAB BLOOD ORDERABLES [facility] Unless otherwise noted, all lab tests performed by: Division of Pathology and Laboratory Medicine [address] [place] [id number] * Confirm ABORh (05/12/2024 3:18 PM CDT) [facility] ABORh Confirm O POS 05/12/2024 3:12 PM CDT [facility] Blood Peripheral blood specimen / Unknown Port / Unknown 05/12/2024 3:18 PM CDT 05/12/2024 3:23 PM CDT Ramirez Rasheed MD BLOOD BANK TEST ORDE RABLES [facility] [address] [place] [address] [phone] [place] [address] * (ABNORMAL) ESR (05/12/2024 3:12 PM CDT) Sedimentation Rate 92(H) <=20 mm/hr 2023 4:24 PM CDT [facility] Blood Peripheral blood specimen / Unknown Port / Unknown 05/12/2024 3:12 PM CDT 05/12/2024 3:23 PM CDT Ramirez Rasheed MD LAB BLOOD ORDERABLES [facility] Unless otherwise noted, all lab tests performed by: Division of Pathology and Laboratory Medicine [address] [place] [id number] * CT Abdomen Pelvis without Contrast (02/05/2024 [...] contrast. ACTIONABLE ITEMS/RECOMMENDATIONS: See impression. Marbella GRAJEDA Laura CT ORDERABLES * Troponin I (Sendout) (01/27/2024 9:16 AM CDT) Troponin-I 27 <=78 01/28/2024 7:08 AM CDT [facility] Blood Peripheral blood specimen / Unknown Port / Unknown 01/27/2024 9:16 AM CDT 01/27/2024 9:17 AM CDT Narrative [facility] - 01/28/2024 7:08 AM CDT Based on the Third Glouster Definition of Mycocardial Infarction, the 99th percentile upper reference limit of Troponin I for a healthy population is <0.03 ng/mL. Jose Finch MD LAB BLOOD ORDERABLES [facility] [address] [place] [address], * (ABNORMAL) Troponin T (In-House) (01/27/2024 9:16 AM CDT) Troponin T 34(H) <=19 ng/L 01/27/2024 2:57 PM CDT [facility] Blood Peripheral blood specimen / Unknown Port / Unknown 01/27/2024 9:16 AM CDT 01/27/2024 9:17 AM CDT Narrative [facility] - 01/27/2024 2:57 PM CDT Reference range [...] results. Jose Finch MD LAB BLOOD ORDERABLES [facility] Unless otherwise noted, all lab tests performed by: Division of Pathology and Laboratory Medicine [address] [place] [id number] * CKMB (01/27/2024 9:16 AM CDT) Pathologist [facility] CKMB <2.0 <=10.4 ng/mL 01/27/2024 3:01 PM CDT [facility] Blood Peripheral blood specimen / Unknown Port / Unknown 01/27/2024 9:16 AM CDT 01/27/2024 9:17 AM CDT Jose Finch MD LAB BLOOD ORDERABLES [facility] Unless otherwise noted, all lab tests performed by: Division of Pathology and Laboratory Medicine [address] [place] [id number] * Creatine Kinase (01/27/2024 9:16 AM CDT) [facility] Creatine Kinase 41 39 - 308 U/L 01/27/2024 3:01 PM CDT [facility] Blood Peripheral blood specimen / Unknown Port / Unknown 01/27/2024 9:16 AM CDT 01/27/2024 9:17 AM CDT Jose Finch MD LAB BLOOD ORDERABLES [facility] Unless otherwise noted, all lab tests performed by: Division of Pathology and Laboratory Medicine [address] [place] [phone] * (ABNORMAL) Lipid Panel (01/27/2024 9:16 AM CDT) [facility] Cholesterol Total 142 <=199 mg/dL 01/27/2024 9:55 AM CDT [facility] Comment: ATP III Classification of Total Cholesterol - Primary Target of Therapy (in mg/dL): <200 Desirable 200-239 Borderline high >=240 High Triglyceride 210(H) <=149 mg/dL 01/27/2024 9:55 AM CDT [facility] Comment: ATP III Classification of Serum Triglycerides Primary Target of Therapy (in mg/dL): <150 Normal 150-199 Borderline high 200-499 High >=500 Very high Non-fasting triglycerides >200 mg/dL may be followed up with a fasting Lipid Panel. Calculated LDL-C may be falsely decreased when non-fasting triglycerides >200 mg/dL. HDL Cholesterol 39(L) >=40 mg/dL 01/27/2024 9:55 AM T [facility] LDL Cholesterol 61 <=100 mg/dL 01/27/2024 9:55 AM T [facility] Comment: ATP III Classification of LDL Cholesterol Primary Target of Therapy (in mg/dL): <100 Optimal 100-129 Near optimal/above optimal 130-159 Borderline high 160-189 High >=190 Very high Very Low Density Lipoprotein 42 mg/dL 01/27/2024 9:55 AM T [facility] Is patient fasting? Yes 01/26 9:55 AM CDT [facility] Blood Peripheral blood specimen / Unknown Port / Unknown 01/27/2024 9:16 AM CDT 01/27/2024 9:17 AM CDT Jose Finch MD LAB BLOOD ORDERABLES [facility] [address] [facility], [facility] [address] [place] [address] * XR Chest 2 Views (01/26/2024 1:30 [...] with and without Contrast (01/16/2024 6:53 PM UTILITY OPERATOR YARN) Anatomical Region Laterality Modality Abdomen Magnetic Resonan ce 01/17/2024 5:58 AM UTILITY OPERATOR YARN Impressions 01/17/2024 7:20 AM UTILITY OPERATOR YARN Impression: 1. The primary tumor within the [...] ITEMS/RECOMMENDATIONS*: See impression. Narrative 01/17/2024 7:20 AM UTILITY OPERATOR YARN Examination: MRI ABDOMEN & PELVIS W AND [...] in the segment 8 liver dome medially ([id number], image 174) shows corresponding T2 hyperintensity (series [...] lymphadenopathy. ACTIONABLE ITEMS/RECOMMENDATIONS*: See impression. Marbella GRAJEDA IMLaura MRI ORDERABLES * CT Chest without Contrast (01/07/2024 4:49 PM UTILITY OPERATOR YARN) Anatomical Region Laterality Modality Chest Computed Tomogra phy 01/08/2024 7:15 AM UTILITY OPERATOR YARN Impressions 01/08/2024 7:30 AM UTILITY OPERATOR YARN Calcified and noncalcified pulmonary nodules may be sequela of granulomatous disease. Follow-up to ensure stability exclude metastatic disease can be performed. Bilateral peripheral lower lung reticular opacities concerning for scarring/fibrosis. Additional opacities in the right lower lobe most likely due to atelectasis or scarring and clinical correlation and follow-up is recommended. ACTIONABLE ITEMS/RECOMMENDATIONS*: See impression. Narrative 01/08/2024 7:30 AM UTILITY OPERATOR YARN FULL RESULT: Examination: CT CHEST WO CONTRAST [...] impression. Marbella GRAJEDA IMG CT ORDERABLES * OSI Interventional (12/19/2023 11:58 PM UTILITY OPERATOR YARN) Only the most recent of2 resultswithin the time period is included. Narrative Systemgenerated, Documentation - 01/09/2024 11:58 PM UTILITY OPERATOR YARN Study acquired at another institution. For comparison only. No Landon originated interpretation requested or available. Dashawn JO OUTSIDE IMAGE OR DERABLES * OSI CT Chest (12/09/2023 11:57 PM UTILITY OPERATOR YARN) Narrative Systemgenerated, Documentation - 01/09/2024 11:57 PM UTILITY OPERATOR YARN Study acquired at another institution. For comparison only. No Landon originated interpretation requested or available. Dashawn JO OUTSIDE IMAGE OR DERABLES * OSI CT Abdomen and Pelvis (12/09/2023 11:57 PM UTILITY OPERATOR YARN) Narrative Systemgenerated, Documentation - 01/09/2024 11:57 PM UTILITY OPERATOR YARN Study acquired at another institution. For comparison only. No MD Navarrete originated interpretation requested or available. Dashawn JO OUTSIDE IMAGE OR DERABLES * Pathology Outside Interpretation (12/09/2023) Only the most recent of2 resultswithin the time period is included. Materials Received Accession#, Stained, Block, Unstained Collected Received A. [id number], 4 SS, 0 BLOCKS, 0 USS 12/09/2023 01/14/2024 01/15/2024 11:40 AM UTILITY OPERATOR YARN [facility] Diagnosis Received 4 slides ([id number]) designated common bile duct, brushing: Rare atypical cell clusters 01/15/2024 11:40 AM UTILITY OPERATOR YARN [facility] Comment Scant cellularity precludes a more definitive characterization. See also the [facility] review ([id number]) of the concurrent biopsy. 01/15/2024 11:40 AM UTILITY OPERATOR YARN [facility] Disclaimer "Some tests reported here may have been developed and performance characteristics determined by [facility] Pathology and Laboratory Medicine. These tests have not been specifically cleared or approved by the U.S. Food and Drug Administration. If applicable, controls were reviewed and showed appropriate reactivity." 01/15/2024 11:40 AM UTILITY OPERATOR YARN [facility] Tissue 12/09/2023 01/14/2024 11: 40 AM UTILITY OPERATOR YARN Ralf Pelayo LAB PATHOLOGY ORDERA [facility] [place] [address], after 07/28/2023 Advance Directives * Full Code (Latest Code Status on File) Date Activated Date Inactivated Comments 07/04/2024 6:58 PM 07/08/2024 1:41 PM * Full Code Date Activated Date Inactivated Comments 05/12/2024 5:09 PM 05/29/2024 5:06 PM Care Teams Multi Site Leasing Consultant Relationship Specialty Start Date End Date Al Carrasco MD [address] [address] [email or web address] PCP - External Follow Up A General Surgery 12/26/23 Dashawn Sutherland MD [address] [place] [phone] [email or web address] PCP - General Gastrointestinal Medical Oncology 01/05/24 Al Quick IV, MD [address] [place] [phone] [email or web address] Consulting Physician Urology 04/09/24
--- NOTE | 2024-07-27 14:08 | ER ---
Nurse's Notes [facility] Name: Nnamdi Flores III Age: 78 yrs Sex: Male : 1945 Arrival Date: 07/27/2024 Time: 13:03 Bed 18 Private MD: Diagnosis: Fever, unspecified Presentation: 07/27 13:18 Chief complaint: Patient states: Went to get immunotherapy today and had a 103.1F temp cm10 and told to go to the ER. Pt had a new port placed yesterday. Pt also reports cough. Coronavirus screen: Client denies travel out of the [place] in the last 14 days. Ebola Screen: Patient denies travel to an Ebola-affected area in the 21 days before illness onset. No symptoms or risks identified at this time. Initial Sepsis Screen: Does the patient meet any 2 criteria? No. Patient's initial sepsis screen is negative. Does the patient have a suspected source of infection? No. Patient's initial sepsis screen is negative. Risk Assessment: Do you want to hurt yourself or someone else? Patient reports no desire to harm self or others. Onset of symptoms was July 27, 2024. 13:18 Method Of Arrival: Wheelchair cm10 13:18 Acuity: DAMION 3 cm10 Triage Assessment: 13:20 General: Appears in no apparent distress. comfortable, Behavior is calm, cooperative. cm10 Neuro: No deficits noted. Level of Consciousness is awake, alert, obeys commands, Oriented to person, place, time, situation, Appropriate for age. Historical: - Allergies: 13:20 Morphine; cm10 13:20 Sulfa (Sulfonamide Antibiotics); cm10 - PMHx: 13:20 BILE DUCT CANCER (Hypothyroidism); BPH; coronary atherosclerosis; Hypertensive cm10 disorder; Hypothyroidism; - Immunization history:: Adult Immunizations up to date. - Infectious Disease History:: Denies. - Social history:: Smoking status: Patient denies any tobacco usage or history of. Screenin:03 [facility] ED Fall Risk Assessment (Adult) History of falling in the last 3 months, bp including since admission No falls in past 3 months (0 pts) Confusion or Disorientation No (0 pts) Intoxicated or Sedated No (0 pts) Impaired Gait No (0 pts) Mobility Assist Device Used No (0 pt) Altered Elimination No (0 pt) Score/Fall Risk Level 0 - 2 = Low Risk. Abuse screen: Denies threats or abuse. Denies injuries from another. Nutritional screening: No deficits noted. Tuberculosis screening: No symptoms or risk factors identified. Assessment: 14:03 Reassessment: PT STATES S/S RESOLVED AND DECLINING FURTHER TREATMENT. PT AND FAMILY bp ADVISED TO REMAIN FOR EVAL BY PROVIDER BUT DECLINED. Vital Signs: 13:18 BP 123 / 69; Pulse 84; Resp 18; Temp 98.1(O); Pulse Ox 100% ; Weight 76.2 kg; Height 5 cm10 ft. 5 in. ; Pain 0/10; 13:18 Body Mass Index 27.96 (76.20 kg, 165.1 cm) cm10 13:18 Pain Scale: Adult cm10 ED Course: 13:07 Patient arrived in ED. mr 13:10 [facility] Webb [facility]C [facility]. kb 13:10 Andi Navarrete MD is Attending Physician. kb 13:20 Triage completed. cm10 13:21 Arm band placed on Patient placed in an exam room, on a stretcher. cm10 13:30 Jaziel Luna, RN is Primary Nurse. bp 14:03 Patient has correct armband on for positive identification. bp 14:03 No provider procedures requiring assistance completed. Patient did not have IV access bp during this emergency room visit. Administered Medications: No medications were administered Medication: 14:04 VIS not applicable for this client. bp Outcome: 14:03 Discharged to home ambulatory, with family, bp 14:03 Condition: stable 14:03 Discharge instructions given to patient, family, 14:07 Discharge ordered by MD. kb 14:27 Patient left the ED. bp Signatures: Zita Webb FNP-C FNP-Catrachita Luis Enrique Karen, Reg Reg mr Jaziel Luna, RN RN Jaycee Mccormack RN RN cm10
--- NOTE | 2024-07-27 14:08 | EDPHYS ---
Physician Documentation [facility] Name: Nnamdi Flores III Age: 78 yrs Sex: Male : 1945 Arrival Date: 07/27/2024 Time: 13:03 Bed 18 Private MD: ED Physician Andi Navarrete HPI: 07/27 14:10 This 78 yrs old Male presents to ER via Wheelchair with complaints of Fever. kb 14:10 Pt is a 78 year old male with a history of bile duct cancer who presents for fever. Pt kb completed chemo 2 weeks ago, went in today for first immunotherapy treatment and was told he had a 103.1 fever so he needed to go to the [facility] ER in [place]. Pt was at the [facility] center in [place] being seen by his oncologist, Dr Sutherland. states she drove him to [place], but couldn't find [facility] so they drove down here and thought we could send him there. Pt has no complaints. Denies n/v/d. Pt had new port placed to left chest yesterday at [facility]. states pt does have a cough, but he has had that for a long time, since he had covid, . Historical: - Allergies: 13:20 Morphine; cm10 13:20 Sulfa (Sulfonamide Antibiotics); cm10 - PMHx: 13:20 BILE DUCT CANCER (Hypothyroidism); BPH; coronary atherosclerosis; Hypertensive cm10 disorder; Hypothyroidism; - Immunization history:: Adult Immunizations up to date. - Infectious Disease History:: Denies. - Social history:: Smoking status: Patient denies any tobacco usage or history of. ROS: 14:09 Constitutional: As per HPI kb Exam: 14:09 Constitutional: This is a well developed, well nourished patient who is awake, alert, kb and in no acute distress. Head/Face: Normocephalic, atraumatic. ENT: Moist Mucous membranes Cardiovascular: Regular rate Respiratory: Respirations even and unlabored. No increased work of breathing. Talking in full sentences Abdomen/GI: Soft, non-tender. No distention Skin: Warm, dry with normal turgor. Normal color. MS/ Extremity: Pulses equal, no cyanosis. Neurovascular intact. Full, normal range of motion. Neuro: Awake and alert, GCS 15, oriented to person, place, time, and situation. Moves all extremities. Normal gait. 14:09 Chest/axilla: Accessed port to left chest without erythema, swelling or drainage. Vital Signs: 13:18 BP 123 / 69; Pulse 84; Resp 18; Temp 98.1(O); Pulse Ox 100% ; Weight 76.2 kg; Height 5 cm10 ft. 5 in. ; Pain 0/10; 13:18 Body Mass Index 27.96 (76.20 kg, 165.1 cm) cm10 13:18 Pain Scale: Adult cm10 MDM: 13:10 Patient medically screened. kb 14:13 Differential diagnosis: covid, flu, post op infection. Data reviewed: vital signs, kb nurses notes. Historians other than the Patient: Spouse/Significant Other: . ED course: states she would rather just take pt home since pt does not have a fever. Educated that I had ordered labs to evaluate why he had the fever at the clinic. states they will just follow up with his oncologist and come back if fever returns. Elected to leave prior to diagnostics against my recommendation. 07/27 13:22 Order name: Accucheck; Complete Time: 13:59 kb 07/27 13:22 Order name: Cardiac monitoring; Complete Time: 13:59 kb 07/27 13:22 Order name: O2 Per Protocol; Complete Time: 13:59 kb 07/27 13:22 Order name: O2 Sat Monitoring; Complete Time: 13:59 kb 07/27 13:22 Order name: Vital Signs; Complete Time: 13:59 kb Administered Medications: No medications were administered Disposition Summary: 07/27/24 14:07 Discharge Ordered Notes: Location: Home kb Condition: Stable kb Diagnosis - Fever, unspecified kb Followup: kb - With: Emergency Department - When: As needed - Reason: Worsening of condition Followup: kb - With: Private Physician - When: 2 - 3 days - Reason: Recheck today's complaints, Continuance of care, Re-evaluation by your physician Discharge Instructions: - Discharge Summary Sheet kb - Fever, Adult, [id number] kb Forms: - Medication Reconciliation Form kb - Antibiotic Education kb - Prescription Opioid Use kb - Patient Portal Instructions kb - Leadership Thank You Letter kb Addendum: 07/31/2024 15:43 Co-signature as Attending Physician, Andi Navarrete MD I agree with the assessment and c wong plan of care. Signatures: Dispatcher [employer] EDMS Zita Webb, CATTLE TRADER-C CATTLE TRADER-Ckb Andi Navarrete MD MD cha Martinez, Clarissa, RN RN cm10 Corrections: (The following items were deleted from the chart) 07/27 13:23 13:23 BLOOD CULTURE*+BA.LAB.BRZ ordered. EDMS EDMS 13:23 13:23 CBC+H.LAB.BRZ ordered. EDMS EDMS 13:23 13:23 COMPREHENSIVE METABOLIC PANEL+C.LAB.BRZ ordered. EDMS EDMS 13:23 13:23 LACTATE+C.LAB.BRZ ordered. EDMS EDMS 13:23 13:23 PROTIME (+INR)+COAG.LAB.BRZ ordered. EDMS EDMS 13:23 13:23 PTT, ACTIVATED+COAG.LAB.BRZ ordered. EDMS EDMS 13:23 13:23 Urinalysis+U.LAB.BRZ ordered. EDMS EDMS 13:23 13:23 Influenza Screen (A \T\ B)+BA.LAB.BRZ ordered. EDMS EDMS 13:23 13:23 SARS-COV-2 Antigen Rapid+I.LAB.BRZ ordered. EDMS EDMS 14:13 13:23 Chest Single View+RAD.RAD.BRZ ordered. EDMS EDMS
[2024-07-27 14:32] VITALS: BP 123/69; TEMP 98.1; O2SAT 100
== END 2024-07-27 14:27 | disposition home or self-care (01) ==
LOC: ER 13:03
DX: R50.9 Fever, unspecified (principal); C22.1 Intrahepatic bile duct carcinoma; Z11.52 Encounter for screening for COVID-19
CPT/HCPCS: 99282

== ENCOUNTER 2024-09-28 18:24 | Emergency (ER) | payer OTHER ==
--- OUTSIDE RECORDS SUMMARY | 2024-09-28 18:33 | XMS REPORT | Clinical Summary ---
Author Name Unknown Organization [facility] Address [address] [place] [address] Care Team Providers Care Pricing Consultant Name Role Phone Al Carrasco MD Unavailable [phone] Dashawn Sutherland MD Primary Care Provider [phone] Ynes RUBI MD, William J Unavailable [phone] Rashida Rico MD Unavailable [phone] Eugene Martinez MD Unavailable Allergies Active Allergy Reactions Criticality Noted Date Comments Morphine Anaphylaxis,Other (S ee Comments),Shortness Of Breath High 11/21/2015 Hypotention Sulfur Nausea And Vomiting High 12/08/2023 Medications * This document contains information received from the source organization and may not represent a complete record from that organization. metoprolol tartrate (LOPRESSOR) 50 mg tablet Take 1 tablet (50 mg) by mouth daily. 023 Active losartan (COZAAR) 100 mg tablet Take 1 tablet (100 mg) by mouth daily. Taking 50mg am/ and 50mg at night 023 Active glimepiride (AMARYL) 2 mg tablet Take 2 tablets (4 mg) by mouth twice daily. 024 Active latanoprost (XALATAN) 0.005% ophthalmic solution Administer 1 drop to both eyes daily. 023 Active tamsulosin (FLOMAX) 0.4 mg 24 hr capsule Take 1 capsule (0.4 mg) by mouth daily. 023 Active simvastatin (ZOCOR) 20 mg tablet Take 2 tablets (40 mg) by mouth at bedtime. Active ezetimibe (ZETIA) 10 mg tablet Take 1 tablet (10 mg) by mouth at bedtime. Active aspirin 81 mg chewable tabletIndications:C oronary artery disease due to calcified coronary lesion Chew 1 tablet (81 mg) daily. Active pantoprazole (Protonix) 40 mg EC tabletIndications:U pper gastrointestinal bleeding,Melena Take 1 tablet (40 mg) by mouth 2 (two) times a day before meals. 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 30 tablet 11 2024 Active sodium chloride (NS) 0.9% flush syringe 10 mLIndications:Chola ngiocarcinoma of biliary tract, NOS Inject 10 mL (1 syringe) into each lumen of central venous catheter daily as directed. 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 For external use only. 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 Do not take if systolic blood pressure (upper number) is less than 120 30 tablet 07/08/20 10:23 AM CDT Active Additional Information Patient not taking.Reported on 08/31/2024 traMADol (Ultram) 50 mg tabletIndications:P ostoperative pain Take 1 tablet (50 mg) by mouth every 8 (eight) hours as needed for moderate pain. 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 120 capsule Active levothyroxine (Synthroid) 125 mcg tabletIndications:H ypothyroidism due to medicament Take 1 tablet (125 mcg) by mouth daily. 30 tablet 11 Active clobetasol (TEMOVATE) 0.05% creamIndications:Ch olangiocarcinoma,It leticia Apply topically to affected area(s) twice daily. 30 g Active levothyroxine (SYNTHROID, LEVOTHROID) 75 mcg tablet Take 1 tablet (75 mcg) by mouth daily. 2023 Discontinued(S top Taking at Discharge) OMEGA-3 FATTY ACIDS-VITAMIN E ORAL Take 1 g by mouth. 2023 Discontinued ursodiol (ACTIGALL) 500 mg tablet Take 1 tablet (500 mg) by mouth 3 (three) times a day. 2023 Discontinued carvedilol (COREG) 12.5 mg tablet Take 1 tablet (12.5 mg) by mouth daily. 024 2023 Discontinued pantoprazole (PROTONIX) 40 mg EC tablet Take 1 tablet (40 mg) by mouth every morning before breakfast. 024 2023 docusate sodium (COLACE) 100 mg capsule Take 1 capsule (100 mg) by mouth twice daily. 2023 Discontinued ondansetron (Zofran) 8 mg tabletIndications:C holangiocarcinoma of biliary tract, NOS Take 1 tablet (8 mg) by mouth every 8 (eight) hours as needed for nausea or vomiting (First choice). 30 tablet 5 2023 Discontinued(O ther/Not Applicable) prochlorperazine (COMPAZINE) 10 mg tabletIndications:C holangiocarcinoma of biliary tract, NOS Take 1 tablet (10 mg) by mouth every 6 (six) hours as needed for nausea or vomiting (Second choice). 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 30 capsule 024 2023 Discontinued(R eorder) clopidogrel (PLAVIX) 75 mg tablet Take 1 tablet (75 mg) by mouth daily. 2023 Discontinued(S top Taking at Discharge) cephalexin (KEFLEX) 500 mg capsule Take 1 capsule (500 mg) by mouth twice daily. 024 2023 Discontinued(S top Taking at Discharge) Iron 100 Plus [id number] [id number]-lyx-mg tab Take 1 tablet by mouth daily. 024 2023 Discontinued(S top Taking at Discharge) levothyroxine (SYNTHROID, LEVOTHROID) 100 mcg tabletIndications:H ypothyroidism, not otherwise specified Take 1 tablet (100 mcg) by mouth daily. 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 30 capsule 024 2023 Discontinued cephalexin (KEFLEX) 500 mg capsuleIndications: Calculus of kidney and ureter Take 1 capsule (500 mg) by mouth twice daily. 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 024 2023 Discontinued(R eorder) amoxicillin-clavula simona (AUGMENTIN) 875 mg-125 mg per tabletIndications:D iverticulitis Take 1 tablet (875 mg) by mouth every 12 (twelve) hours for 6 doses. 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 60 capsule 024 2023 Discontinued(R eorder) Active Problems Patient Care Coordination No te Formatting of this note migh t be different from the original. Patient tested positive for COVID on 05/05/24. R/S'd chemo to 05/19/2024 Problem Noted Date Diagnosed Date Diverticulitis 07/29/2024 Atherosclerosis of coronary artery bypass graft without angina pectoris 07/28/2024 Abscess 07/28/2024 Liver enzymes level above reference range 2023 Sepsis 07/04/2024 Fever with rigors 07/04/2024 Calculus of kidney and ureter 05/28/2024 [...] - Unsigned Bilateral hearing loss 12/23/2023 Encounters * This document contains information received from the source organization and may not represent a complete record from that organization. 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 09/02/2024 Orders Only MD [facility] [place] - Medical Oncology [address] [place] [address] Marbella Pereira PA Cholangiocarcinoma of biliary tract, NOS; 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 08/31/2024 9:23 AM CDT - 08/31/2024 11:59 PM CDT Hospital Encounter [facility] [address] [place] [address] Main Bldg, [place] [address] Bonnie Oneill APRN Cholangiocarcinoma; Type 2 diabetes mellitus with hyperglycemia Discharge Disposition: Home 08/31/2024 7:58 AM CDT - 08/31/2024 9:22 AM CDT Hospital Encounter [facility] [address] [place] [address] Main dg, 1st [place] [address] Rashida Rico MD Cholangiocarcinoma Discharge Disposition: Home 08/31/2024 Refill [facility] On[facility] [address] [place] [address] Marbella Pereira PA Cholangiocarcinoma of biliary tract, NOS; 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 08/31/2024 Orders Only [facility] [address] [place] [address] Main dg, 1st [place] [address] Bonnie Oneill APRN Cholangiocarcinoma (Primary Dx) 08/31/2024 Travel 08/23/2024 11:00 AM CDT Infusion [facility] - Infusion [address] [place] [address] Marbella Pereira PA Beckford, Tiffany A, RN Cholangiocarcinoma (Primary Dx) 08/23/2024 9:30 AM CDT Follow-Up [facility] Medical Oncology [address] [place] [address] Dashawn Sutherland MD Cholangiocarcinoma (Primary Dx) 08/23/2024 6:15 AM CDT Ancillary Procedure [address] [place] [address] Marbella Pereira PA Cholangiocarcinoma 08/23/2024 Orders Only [facility] [address] [place] [address] Main Bldg, 7th [place] [address] Dashawn Sutherland MD 08/23/2024 Travel 08/11/2024 11:30 AM CDT - 08/11/2024 11:59 PM CDT Hospital Encounter [facility] - [facility] Oncology [address] [place] [address] Main Bldg, 7th [place] [address] Marbella Pereira PA Noticewala, Sonal Suresh, MD Cholangiocarcinoma (Primary Dx) Discharge Disposition: Home 08/11/2024 11:00 AM CDT Telemedicine [facility] Oncology [address] [place] [address] Dashawn Sutherland MD Cholangiocarcinoma 08/11/2024 Travel 08/06/2024 Refill [facility] Oncology [address] [place] [address] Marbella Pereira PA Cholangiocarcinoma of biliary tract, NOS 08/02/2024 Orders Only [facility] Oncology [address] [place] [address] Marbella Pereira PA Cholangiocarcinoma of biliary tract, NOS; 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 07/29/2024 Documentation Cardiop[facility] Center [address] [place] [address] Main Bldg, 6th [place] [address] Gem Schmidt 07/28/2024 Travel 07/27/2024 8:15 PM CDT - 07/30/2024 2:39 PM CDT Hospital Encounter MAIN [address] [place] [address] Brian Mancilla MD Krishnamani, Pavitra P, MD Musaelyan, Arine, MD Ali, Aliasger, MD Ali, Noman, MD Fever with rigors (Primary Dx); Calculus of ureter; Nephrolithiasis; Cholangiocarcinoma; Abscess; Diverticulitis; Melena Discharge Disposition: Home 07/27/2024 10:00 AM CDT Infusion MD [facility] [place] - Infusion [address] [place] [address] Marbella Pereira PA Bradley, Jeannen E, RN Cholangiocarcinoma (Primary Dx) 07/27/2024 Travel 07/26/2024 1:00 PM CDT Ancillary Procedure [facility] [address] [place] [address] 07/26/2024 11:17 AM CDT Anesthesia Event Pre-Op/Surgery Check-In [address] [place] [address] Rudy Slade MD Kee, Spencer, MD 07/26/2024 9:35 AM CDT - 07/26/2024 11:20 AM CDT Surgery Pre-Op/Surgery Check-In [address] [place] [address] Jac Craig MD PORT-A-CATH PLACEMENT 07/26/2024 8:50 AM CDT Ancillary Procedure MAIN OR [address] [place] [address] Lili Boss, ANNAMARIA 07/26/2024 8:40 AM CDT Ancillary Procedure [facility] [address] [place] [address] Malignant neoplasm of intrahepatic bile ducts 07/26/2024 8:35 AM CDT Ancillary Procedure Pre-Op/Surgery Check-In [address] [place] [address] Jac Craig MD 07/26/2024 8:05 AM CDT - 07/26/2024 2:00 PM CDT Hospital Encounter Pre-Op/Surgery Check-In [address] [place] [address] Jac Craig MD Cholangiocarcinoma (Primary Dx) Discharge Disposition: Home 07/26/2024 7:20 AM CDT - 07/26/2024 8:04 AM CDT Hospital Encounter [facility] [address] [place] [address] Lili Boss, TRANSITION MANAGER Preoperative laboratory examination Discharge Disposition: Home 07/26/2024 Travel 07/23/2024 4:30 PM CDT POEM Appointments [facility] [address] [place] [address], 6th [place] [address] Dashawn Sutherland MD Pre-surgery evaluation 07/21/2024 8:30 AM CDT Follow-Up MD [facility] - Medical Oncology [address] [place] [address] Dashawn Sutherland MD Cholangiocarcinoma (Primary Dx) 07/21/2024 Orders Only [facility] [address] [place] [address], 7th [place] [address] Dashawn Sutherland MD 07/20/2024 3:00 PM CDT Telemedicine [facility] [address] [place] [address], 7th [place] [address] Al Quick IV, MD Calculus of kidney and ureter (Primary Dx) 07/20/2024 9:53 AM CDT - 07/20/2024 11:59 PM CDT Hospital Encounter [facility] Access [facility] Procedures [facility] [address] [place] [address], 8th [place] [address] Marbella Pereira PA Espiritu, Marichelle A, TORREY Encounter for adjustment and management of vascular access device (Primary Dx); Cholangiocarcinoma of biliary tract, NOS; Preoperative laboratory examination; Postoperative pain Discharge Disposition: Home 07/20/2024 Travel 07/16/2024 11:30 AM CDT Ancillary Procedure MD [facility] [address] [address] Al Quick IV, MD Calculus of kidney and ureter 07/16/2024 8:30 AM CDT Ancillary Procedure MD [facility] [address] [address] Marbella Pereira PA Cholangiocarcinoma 07/13/2024 10:15 AM CDT Infusion MD [facility] - Infusion [address] [place] [address] Marbella Pereira PA Alegado, Reynaldo F Jr., RN Cholangiocarcinoma (Primary Dx); Cholangiocarcinoma of biliary tract, NOS 07/13/2024 Travel 07/12/2024 Orders Only MD [facility] On[facility] [address] [place] [address] Marbella Pereira PA 07/05/2024 8:00 PM CDT Ancillary Procedure [facility] [address] [place] [address] Nery Rasheed MD 07/04/2024 8:00 PM CDT Ancillary Procedure [facility] [address] [place] [address] Nery Rasheed MD 07/04/2024 11:21 AM CDT - 07/08/2024 11:36 AM CDT Hospital Encounter MAIN P04A [address] [place] [address] Nery Rasheed MD Musaelyan, MD Carlton Rodriguez Mikel, MD [facility], Sepsis (Primary Dx); Fever; Cholangiocarcinoma; Liver enzymes [...] ureter Discharge Disposition: Home 07/04/2024 Travel 07/03/[address] Bldg, 7th [place] [address] Marbella Pereira PA Cholangiocarcinoma of biliary tract, NOS; 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 06/29/2024 10:15 AM CDT Infusion MD [facility] - Infusion [address] [place] [address] [address] [place] [address] Marbella Pereira PA Pierce, Alyssa O, RN Cholangiocarcinoma (Primary Dx); Cholangiocarcinoma of biliary tract, NOS 06/29/2024 Orders Only [facility] [address] [place] [address], 7th [place] [address] Marbella Pereira PA 06/29/2024 Travel 06/28/2024 Case Management Case Management [address] [place] [address] Lo Jarvis, TORREY 06/23/2024 11:59 PM CDT Anesthesia Event Perioperative Evaluation [facility] Management Center [address] [place] [address], [facility] [place] [address] Fátima Alves, RN 06/23/2024 11:59 PM CDT Anesthesia Event Peri[facility] Management [facility] [address] [place] [address], [facility] [place] [address] Fátima Alves, RN 06/23/2024 Orders Only [facility] [address] [place] [address], 7th [place] [address] Al Quick IV, MD 06/23/2024 Orders Only [facility] [address] [place] [address], [facility] [place] [address] Marbella Pereira PA Cholangiocarcinoma (Primary Dx) 06/23/2024 Telephone [facility] [address] [place] [address], 8th [place] [address] Lili Boss APRN 06/22/2024 Case Management Case Management [address] [place] [address] Jade Ku, RN 06/22/2024 Prep for Surgery [facility] [address] [place] [address], 8th [place] [address] Lili Boss, ANNAMARIA Cholangiocarcinoma (Primary Dx); Pre-surgery evaluation 06/21/2024 3:00 PM CDT Telemedicine [facility] - Medical Oncology [address] [place] [address] Dashawn Sutherland MD Cholangiocarcinoma of biliary tract, NOS 06/21/2024 Orders Only [facility] [address] [place] [address], 7th [place] [address] Dashawn Sutherland MD 06/21/2024 Orders Only [facility] Oncology [address] [place] [address] Marbella Pereira PA Cholangiocarcinoma (Primary Dx) 06/21/2024 Orders Only [facility] Oncology [address] [place] [address] Marbella Pereira PA Cholangiocarcinoma (Primary Dx) 06/20/2024 Orders Only [facility] [address] [place] [address], 7th [place] [address] Al Quick IV, MD Calculus of kidney and ureter (Primary Dx) 06/19/2024 8:00 AM CDT - 06/19/2024 10:35 AM CDT Surgery MAIN OR [address] [place] [address] Al Quick IV, MD CYSTOURETHROSCOPY WITH URETEROROSCOPY &/OR PYELOSCOPY, W/ REMOVAL/MANIPULATION OF CALCULUS 06/19/2024 7:56 AM CDT Anesthesia Event MAIN OR [address] [place] [address] Donnell Griffin MD Staes, Robert A II, [facility] 06/19/2024 5:55 AM CDT - 06/19/2024 1:34 PM CDT Hospital Encounter MAIN OR [address] [place] [address] Al Quick IV, MD Calculus of kidney and ureter Discharge Disposition: Home 06/19/2024 Orders Only [facility] [address] [place] [address], 7th [place] [address] Al Quick IV, MD Calculus of kidney and ureter (Primary Dx) 06/19/2024 Travel 06/18/2024 8:00 AM CDT POEM Appointments Per[facility] Management [facility] [address] [place] [address], 6th [place] [address] Dashawn Sutherland MD 06/18/2024 Case Management Case Management [address] [place] [address] Jade Ku RN 06/17/2024 11:59 PM CDT Anesthesia Event [facility] [address] [place] [address], [facility] [place] [address] Fátima Alves RN 06/15/2024 8:00 AM CDT Infusion [facility] - Infusion [address] [place] [address] Marbella Pereira PA Sullivan, Paula F, RN Cholangiocarcinoma (Primary Dx) 06/15/2024 Orders Only [facility] [address] [place] [address], 7th [place] [address] aMrbella Pereira PA Cholangiocarcinoma of biliary tract, NOS (Primary Dx) 06/15/2024 Travel 06/14/[address] [address] Kianna Vieyra, TORREY 06/14/[address] [address] Magnolia Spencer MA 06/11/2024 4:00 PM CDT Clinical Support [facility] [place] - Infusion [address] [place] [address] Marbella Pereira PA Cholangiocarcinoma of biliary tract, NOS 06/11/2024 Travel 06/10/2024 Nurse Triage MEGHAN ROMERO PHYSICIAN [address] [place], [place] [id number] Sujatha James RN 06/08/2024 Orders Only MD [facility] [place] - Medical Oncology [address] [place] [address] Marbella Pereira PA Cholangiocarcinoma of biliary tract, NOS (Primary Dx) 06/07/2024 11:21 AM CDT - 06/07/2024 11:59 PM CDT Hospital Encounter [facility] Access [facility] Procedures Center [address] [place] [address] Main [facility], 8th [place] [address] Dashawn Sutherland MD Kim, Diana J sewing techniques demonstrator Disposition: Home 06/07/2024 8:36 AM CDT - 06/07/2024 11:20 AM CDT Hospital Encounter [facility] [address] [place] [address] Main dg, 8th [place] [address] Marbella Pereira PA Naig, Adam R. Jr., RN Elvia Blount MA Eads, Kathie Dang APRN,AGACNP Cholangiocarcinoma of biliary tract, NOS Discharge Disposition: Home 06/07/2024 8:34 AM CDT - 06/07/2024 8:35 AM CDT Hospital Encounter [facility] [address] [place] [address], 3rd [place] [address] Encounter for adjustment and management of vascular access device Discharge Disposition: Home 06/07/2024 6:54 AM CDT - 06/07/2024 8:33 AM CDT Hospital Encounter [facility] [address] [place] [address] Main [facility], 8th [place] [address] Marbella Pereira PA Mangulabnan, Joseph B, RN Encounter for adjustment and management of vascular access device (Primary Dx); Cholangiocarcinoma of biliary tract, NOS Discharge Disposition: Home 06/07/2024 6:15 AM CDT - 06/07/2024 6:53 AM CDT Hospital Encounter [facility] [address] [place] [address], [place] [address] Marbella Pereira PA Encounter for adjustment and management of vascular access device Discharge Disposition: Home 06/07/2024 Education [facility] [address] [place] [address] Main [facility], 8th [place] [address] Brody Palumbo RN 06/07/2024 Travel 06/04/2024 9:40 AM CDT - 06/04/2024 11:59 PM CDT Hospital Encounter [facility] [address] [place] [address], 8th [place] [address] Dashawn Sutherland MD Discharge Disposition: Home 06/04/2024 Nurse Only [facility] [address] [place] [address], 8th [place] [address] Jacey Hui RN Encounter for adjustment and management of vascular access device (Primary Dx) 06/03/2024 Orders Only [facility] [address] [place] [address], 7th [place] [address] Marbella Pereira PA Cholangiocarcinoma of biliary tract, NOS (Primary Dx) 06/03/2024 Orders Only [facility] [address] [place] [address], 7th [place] [address] Marbella Pereira PA Cholangiocarcinoma of biliary tract, NOS; 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 06/02/2024 9:30 AM CDT Infusion MD [facility] [place] - Infusion [address] [place] [address] Marbella Pereira PA [place], Celine M, RN Cholangiocarcinoma (Primary Dx) 06/02/2024 Telephone [facility] [place] - Integrative Medicine [address] [facility] [place], Floor 7 [place] [address] Karen Helton RN 06/02/2024 Orders Only [facility] [address] [place] [address], 7th [place] [address] Covert, FAHEEM Trujillo 06/02/2024 Orders Only MD Landon [facility] - Medical Oncology [address] [place] [address] Marbella Pereira PA 06/01/2024 Orders Only [facility] [address] [place] [address] Graeme Saurez MD 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) 05/31/2024 10:00 AM CDT Follow-Up MD [facility] [place] - Medical Oncology [address] [place] [address] Dashawn Sutherland MD Cholangiocarcinoma of biliary tract, NOS 05/31/2024 Telephone [facility] [address] [place] [address] Cece Gaytan, sewing techniques demonstrator Call 05/31/2024 Travel 05/28/2024 Orders Only [facility] [address] [facility], 7th [place] [address] Al Quick IV, MD Calculus of kidney and ureter (Primary Dx) 05/27/2024 9:29 AM CDT Anesthesia [facility] [address] [place] [address] Main dg, 5th [place] [address] Parris Moya MD Koo, Linda, RETAIL STORE MANAGER 05/27/2024 7:45 AM CDT - 05/27/2024 8:35 AM CDT [facility] [address] [place] [address] Main dg, 5th [place] [address] Alan Griffith MD DIAGNOSTIC UPPER GASTROINTESTINAL ENDOSCOPY 05/26/2024 Prep for Surgery [facility] - Gastroenterology, Hepatology & Nutrition [address] [place] [address] Main dg, 7th Floor Elevator A [place] [phone] Anna Braun PA Melena (Primary Dx); Anemia, not otherwise specified; Dieulafoy lesion of duodenum 05/25/2024 Travel 05/21/2024 2:07 PM CDT [facility] [address] [place] [address] Main dg, 5th Floor Elevator C [place] [phone] Estrellita Gillespie MD Silva, Jason M, RETAIL STORE MANAGER 05/21/2024 1:00 PM CDT - 05/21/2024 2:00 PM CDT [facility] [address] [place] [address] Main Bldg, 5th Floor Elevator C [place] [phone] Lizbet Magana MD DIAGNOSTIC UPPER GASTROINTESTINAL ENDOSCOPY 05/19/2024 Prep for Surgery [facility] - Gastroenterology, Hepatology & Nutrition [address] [place] [address] Main dg, 7th [place] [address] Anna Braun PA Melena (Primary Dx); Anemia, not otherwise specified 05/17/2024 Orders Only MD [facility] Medical Oncology [address] [place] [address] Marbella Pereira PA 05/14/2024 Orders Only [facility] Medical Oncology [address] [place] [address] Marbella Pereira PA Cholangiocarcinoma of biliary tract, NOS (Primary Dx) 05/13/2024 Travel 05/12/2024 2:29 PM CDT - 05/29/2024 3:06 PM CDT Hospital Encounter MAIN [address] [address] Vicki Lewis MD Ali, Aliasger, MD Sahar, Hadeel, MD Manzano, Joanna-Grace, MD Kheder, Ed, Stephen Booker MD Nguyen, Son V., MD E coli infection (Primary Dx); Upper gastrointestinal bleeding; Nephrolithiasis; Coronary artery disease due to calcified coronary lesion; Hypothyroidism, not otherwise specified; Melena Discharge Disposition: Home 05/12/2024 Telephone MD [place] [place] - Cardiology [address] [place] [address] Magnolia Spencer MA 05/12/2024 Travel 05/07/2024 Telephone Cardiopulmonary Center [address] [place] [address] Main dg, 6th [place] [address] Kenisha Medel, TORREY 05/06/2024 Orders Only [facility] [address] [place] [address] Main dg, 7th [place] [address] Marbella Pereira PA 05/04/2024 9:00 AM CDT Infusion [facility] - Infusion [address] [place] [address] Marbella Pereira PA Monroe, Celine M RN Cholangiocarcinoma of biliary tract, NOS (Primary Dx) 05/04/2024 Orders Only Gastrointestinal Center 15[address] [facility], 7th [place] [address] Marbella Pereira PA Cholangiocarcinoma of biliary tract, NOS (Primary Dx) 05/04/2024 Travel 04/28/2024 Documentation Cardiopulmonary Center 15[address] [facility], 6th [place] [address] Gem Schmidt 04/26/2024 2:00 PM CDT Telemedicine [facility] - Medical Oncology [address] [place] [address] Dashawn Sutherland MD Cholangiocarcinoma of biliary tract, NOS (Primary Dx); Cholangiocarcinoma 04/26/2024 Orders Only [facility] - Medical Oncology [address] [place] [address] Marbella Pereira PA 04/26/2024 Telephone [facility] [place] - Integr[facility] [address] [facility] [place], Floor 7 [place] [address] Karen Helton RN 04/20/2024 9:00 AM CDT Infusion [facility] - [address] [address] Marbella Pereira PA Tran, Nancy K RN Cholangiocarcinoma of biliary tract, NOS (Primary Dx) 04/20/2024 Travel 04/09/2024 10:30 AM CDT Consult Genitourinary Cancer Center [facility]0 [facility], 7th [place] [address] Al Quick IV, MD Calculus of kidney and ureter; Cholangiocarcinoma of biliary tract, NOS 04/09/2024 Prep for Surgery [facility] Cancer [facility]0 [facility], 7th [place] [address] Tamara Schmid, ANNAMARIA Calculus of ureter (Primary Dx) 04/09/2024 Travel 04/06/2024 2:10 PM CDT Ancillary Procedure [address] [address] Marbella Pereira PA Cholangiocarcinoma of biliary tract, NOS 04/06/2024 8:00 AM CDT Infusion [address] [address] Marbella Pereira PA Thomas, Alice, RN Cholangiocarcinoma of biliary tract, NOS (Primary Dx) 04/06/2024 Travel 03/31/2024 10:00 AM CDT Follow-Up [facility] Oncology [address] [place] [address] Dashawn Sutherland MD Cholangiocarcinoma of biliary tract, NOS (Primary Dx) 03/31/2024 Travel 03/25/2024 Orders Only [facility] Oncology [address] [place] [address] Marbella Pereira PA Cholangiocarcinoma of biliary tract, NOS (Primary Dx) 03/11/2024 Orders Only [facility] [address] [place] [address], 7th [place] [address] Marbella Pereira PA 03/09/2024 9:00 AM CDT Infusion [address] [address] Marbella Pereira PA Tran, Nancy K, RN Cholangiocarcinoma of biliary tract, NOS (Primary Dx) 03/09/2024 Travel 03/01/2024 10:30 AM CDT Follow-Up [facility] Oncology [address] [place] [address] Dashawn Sutherland MD Cholangiocarcinoma of biliary tract, NOS (Primary Dx); 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 03/01/2024 Travel 02/24/2024 9:00 AM CDT Infusion [address] [address] Marbella Pereira PA Brioso, Cecille, RN Cholangiocarcinoma of biliary tract, NOS (Primary Dx) 02/24/2024 Orders Only Gastrointestinal Center [facility] Main dg, 7th [place] [address] Dashawn Sutherland MD Cholangiocarcinoma of biliary tract, NOS (Primary Dx) 02/24/2024 Travel 02/10/2024 9:00 AM CDT Infusion [facility] - Infusion [address] [place] [address] Dashawn Sutherland MD Thomas, Alice, RN Cholangiocarcinoma of biliary tract, NOS (Primary Dx) 02/10/2024 Travel 02/06/2024 Orders Only [facility] Medical Oncology [address] [place] [address] Marbella Pereira PA Cholangiocarcinoma of biliary tract, NOS (Primary Dx); Hydronephrosis, not otherwise specified; Calculus of ureter 02/06/2024 Orders Only [facility] Oncology [address] [place] [address] Marbella Pereira PA Cholangiocarcinoma of biliary tract, NOS (Primary Dx) 02/05/2024 10:20 AM CDT Ancillary Procedure [address] [address] Marbella Pereira PA Cholangiocarcinoma of biliary tract, NOS; Right lower quadrant pain 02/05/2024 Travel 02/03/2024 Orders Only [facility] [address] [place] [address] Main dg, 7th [place] [address] Marbella Pereira PA 02/02/2024 2:00 PM CDT Telemedicine [facility] Oncology [address] [place] [address] Dashawn Sutherland MD Right lower quadrant pain (Primary Dx); Cholangiocarcinoma of biliary tract, NOS 01/30/2024 Orders Only [facility] [address] [place] [address] Main Bldg, 7th [place] [address] Reggie Suarez, [facility] 01/28/2024 Telephone [facility] - Infusion [address] [place] [address] Cameron Caban Jr., RN Follow-up 01/27/2024 10:00 AM CDT Infusion [facility] - Infusion [address] [place] [address] Dashawn Sutherland MD Alegado, Reynaldo F Jr., RN Cholangiocarcinoma of biliary tract, NOS (Primary Dx) 01/27/2024 Documentation Cardiopulmonary Center [address] [facility] Main Bldg, 6th [place] [address] Gem Schmidt 01/27/2024 Travel 01/26/2024 1:15 PM CDT Ancillary Procedure [address] [address] Marbella Pereira PA Cholangiocarcinoma of biliary tract, NOS 01/26/2024 Documentation [facility] - Medical Oncology [address] [place] [address] Marbella Pereira PA 01/26/2024 Orders Only [facility] - Medical Oncology [address] [place] [address] Marbella Pereira PA 01/26/2024 Travel 01/20/2024 Orders Only [facility] - Medical Oncology [address] [place] [address] Marbella Pereira PA Cholangiocarcinoma of biliary tract, NOS (Primary Dx) 01/20/2024 Orders Only [facility] [address] [facility] Main Bldg, 7th [place] [address] Marbella Pereira PA Cholangiocarcinoma of biliary tract, NOS (Primary Dx) 01/20/2024 Documentation [facility]ulmonary [facility] [address] [facility] Main Bldg, 6th [place] [address] Gem Schmidt 01/20/2024 Orders Only Cardiopulmonary Center 15[address] [facility] Main Bldg, 6th [place] [address] Jose Finch MD Immunotherapy for cancer (Primary Dx) 01/20/2024 Orders Only [facility] Oncology [address] [place] [address] Marbella Pereira PA 01/19/2024 3:00 PM EGG SORTER Follow-Up [address] [address] Dashawn Sutherland MD Cholangiocarcinoma of biliary tract, NOS (Primary Dx) 01/19/2024 Orders Only [facility] [address] [facility] Main Bldg, 7th [place] [address] Ney Sierra RPH 01/19/2024 Travel 01/16/2024 5:00 PM EGG SORTER - 01/16/2024 11:59 PM EGG SORTER Hospital Encounter [facility] 12[address] [facility], 8th [place] [address] Dashawn Sutherland MD Pham, Iris Davidson, sewing techniques demonstrator Disposition: Home 01/16/2024 4:15 PM EGG SORTER Ancillary Procedure [facility] MRI [address] [facility], 4th [place] [address] Marbella Pereira PA Cholangiocarcinoma of biliary tract, NOS 01/16/2024 Travel 01/14/2024 Telephone [facility] [address] [place] [address] Isreal Ngo, RN 01/14/2024 Orders Only [facility] Oncology [address] [place] [address] Marbella Pereira PA Cholangiocarcinoma of biliary tract, NOS (Primary Dx) 01/14/2024 Travel 01/14/2024 Lab Requisition [facility] Ryan Loredo MD Raza, Roshan 01/14/2024 Lab Requisition [facility] Ryan Loredo MD Jain, Shilpa, MD 01/12/[address] [address] Magnolia Spencer MA 01/09/2024 11:30 PM EGG SORTER Ancillary Procedure [facility] [address] [place] [address] Dashawn Sutherland MD Cancer 01/09/2024 11:25 PM EGG SORTER Ancillary Procedure [facility] [address] [place] [address] Dashawn Sutherland MD Cancer 01/09/2024 11:20 PM EGG SORTER Ancillary Procedure [facility] [address] [place] [address] Dashawn Sutherland MD Cancer 01/09/2024 11:15 PM EGG SORTER Ancillary Procedure [facility] [address] [place] [address] Dashawn Sutherland MD Cancer 01/09/2024 Orders Only [facility] Oncology [address] [place] [address] Marbella Pereira PA 01/08/2024 Orders Only [facility] Oncology [address] [place] [address] Marbella Pereira PA Cholangiocarcinoma of biliary tract, NOS (Primary Dx) 01/07/2024 2:35 PM EGG SORTER Ancillary Procedure [address] [address] Dashawn Sutherland MD Cholangiocarcinoma of biliary tract, NOS 01/07/2024 1:00 PM EGG SORTER Office Visit [facility] Oncology [address] [place] [address] Dashawn Sutherland MD Cholangiocarcinoma of biliary tract, NOS (Primary Dx) 01/07/2024 12:30 PM EGG SORTER [facility] PATIENT ACCESS 01/07/2024 Orders Only [facility] Oncology [address] [place] [address] Marbella Pereira PA Cholangiocarcinoma of biliary tract, NOS (Primary Dx) 01/07/2024 Travel 01/05/2024 Orders Only [facility] [address] [place] [address] Main [facility], 7th [place] [address] Dashawn Sutherland MD Cholangiocarcinoma of biliary tract, NOS (Primary Dx) 12/26/2023 Telephone [facility] [address] [place] [address], 7th [place] [address] Kristine Farias, RN after 09/29/2023 Surgical History Surgery Date Site/Laterality Comments COLONOSCOPY 2019 Clear CORONARY ARTERY BYPASS GRAFT 2012 URETERAL STENT PLACEMENT Right CORONARY ANGIOPLASTY WITH ST ENT PLACEMENT 03/10/2024 x2 CHOLECYSTECTOMY 06/09/2023 CATARACT EXTRACTION EXTRACAP SULAR W/ INTRAOCULAR LENS IMPLANTATION 11/17/2022 - 11/16/2023 Bilateral 08/2023 and 10/2023 BILE DUCT STENT PLACEMENT 12/23/2023 metal stent NH ESOPHAGOGASTRODUODENOSCOP Y TRANSORAL DIAGNOSTIC 05/21/2024 Esophagus/N/A Procedure: DIAGNOSTIC UPPER GASTROINTESTINAL ENDOSCOPY; Surgeon: Lizbet Magana MD; Location: MAIN ENDOSCOPY; Service: GASTROENTEROLOGY NH COLONOSCOPY FLX DX W/DEEPAK J SPEC WHEN PFRMD 05/21/2024 N/A Procedure: DIAGNOSTIC FLEXIBLE COLONOSCOPY PROXIMAL TO SPLENIC FLEXURE; Surgeon: Lizbet Magana MD; Location: MAIN ENDOSCOPY; Service: GASTROENTEROLOGY NH ESOPHAGOGASTRODUODENOSCOP Y TRANSORAL DIAGNOSTIC 05/27/2024 Esophagus/N/A Procedure: DIAGNOSTIC UPPER GASTROINTESTINAL ENDOSCOPY; Surgeon: Alan Griffith MD; Location: MAIN ENDOSCOPY; Service: GASTROENTEROLOGY NH GI TRC IMG INTRALUMINAL ESOPHAGUS-ILEUM W/I&R 05/27/2024 N/A Procedure: INTRALUMINAL GASTROINTESTINAL TRACT IMAGING OF ESOPHAGUS THROUGH ILEUM; Surgeon: Alan Griffith MD; Location: MAIN ENDOSCOPY; Service: GASTROENTEROLOGY NH GI TRC IMG INTRALUMINAL ESOPHAGUS-ILEUM W/I&R 05/27/2024 N/A Procedure: READING FOR INTRALUMINAL GASTROINTESTINAL TRACT IMAGING OF ESOPHAGUS THROUGH ILEUM; Surgeon: Alan Griffith MD; Location: MAIN ENDOSCOPY; Service: GASTROENTEROLOGY NH CYSTO W/URETEROSCOPY W/RMVL/MANJ STONES 06/19/2024 Ureter/Right Procedure: CYSTOURETHROSCOPY WITH URETEROROSCOPY &/OR PYELOSCOPY, W/ REMOVAL/MANIPULATION OF CALCULUS; Surgeon: Al Quick IV, MD; Location: MAIN OR; Service: UROLOGY Medical devices from this surgery are in the Medical Devices section. NH CYSTO W/URETEROSCOPY W/LITHOTRIPSY 06/19/2024 Ureter/Right Procedure: CYSTOURETHROSCOPY WITH URETEROROSCOPY &/OR PYELOSCOPY, W/ LITHOTRIPSY; Surgeon: Al Quick IV, MD; Location: MAIN OR; Service: UROLOGY Medical devices from this surgery are in the Medical Devices section. NH INSJ TUNNELED CTR VAD W/S UBQ PORT AGE 5 YR/> 07/26/2024 Neck/Left Procedure: PORT-A-CATH PLACEMENT; Surgeon: Jac Craig MD; Location: [facility]; Service: SURG ONC - PORT Medical devices from this surgery are in the Medical Devices section. NH FLUORO CENTRAL VENOUS ACC ESS DEV PLACEMENT 07/26/2024 Neck/Left Procedure: FLUORO GUIDANCE FOR CENTRAL VENOUS ACCESS DEVICE PLACEMENT, REPLACEMENT, OR REMOVAL; Surgeon: Jac Craig MD; Location: [facility]; Service: SURG ONC - PORT Medical devices from this surgery are in the Medical Devices section. NH US VASC ACCESS SITS VSL P ATENCY NDL ENTRY 07/26/2024 Chest/Left Procedure: US GUIDANCE WITH EVAL OF POTENTIAL ACCESS SITES, REALTIME US VISUALIZATION OF VASC NEEDLE ENTRY; Surgeon: Jac Craig MD; Location: [facility]; Service: SURG ONC - PORT Medical devices from this surgery are in [...] Recorded Sex Assigned at Not on file Legal Sex Male 8:23 AM EGG SORTER Gender Identity Not on file Sexual Orientation Not on file Obstetrics History Last Filed Vital Signs Vital Sign Reading Time Taken Comments Blood Pressure 146/69 09/21/2024 9:09 AM EGG SORTER Pulse 65 09/21/2024 9:09 AM EGG SORTER Temperature 37.1 C (98.8 F) 09/21/2024 9:09 AM CS T Respiratory Rate 18 09/21/2024 9:09 AM EGG SORTER Oxygen Saturation 98% 09/21/2024 9:09 AM EGG SORTER Inhaled Oxygen Concentration - - Weight 76.5 kg (168 lb 10.4 oz) 09/21/2024 9:08 AM EGG SORTER Height 161 cm (5' 3.39") 08/31/2024 8:10 AM CDT Body Mass Index 29.51 08/31/2024 8:10 AM CDT Plan of Treatment Upcoming Encounters Date Type Department Care Team (Late st Contact Info) Description 10/05/2024 3:15 PM EGG SORTER Follow-Up [facility] - Gastroenterology, Hepatology & Nutrition [address] [place] [address], 7th [place] [address] Jodie Manzo MD [address] [place] [phone] [email or web address] Pitt MD [facility] [place] [address] [email or web address] 10/06/2024 9:30 AM EGG SORTER Follow-Up Cardiopulmonary Center [address] [place] [address] Main Bldg, 6th [place] [address] Graeme Suarez MD [address] [place] [address] [email or web address] 10/19/2024 7:00 AM EGG SORTER Lab [facility] Diagnostic Laboratory Center [address] [place] [address] Marbella Pereira PA [address] [place] [phone] [email or web address] 10/19/2024 8:00 AM EGG SORTER Infusion [facility] [place] - Infusion [address] [place] [address] Marbella Pereira PA [address] [place] [address] [email or web address] 10/22/2024 12:45 PM EGG SORTER Ancillary Procedure [address] [address] Marbella Pereira PA [address] [place] [phone] [email or web address] 10/27/2024 11:30 AM EGG SORTER Follow-Up [facility] - Medical Oncology [address] [place] [address] Dashawn Sutherland MD [address] [place] [phone] [email or web address] 11/16/2024 8:30 AM EGG SORTER Lab [facility] Diagnostic Laboratory Center [address] [place] [address] [place] [address] Marbella Pereira, PA [address] [place] [address] [email or web address] 11/16/2024 9:30 AM EGG SORTER Infusion MD [place] [place] - Infusion [address] [place] [address] Marbella Pereira PA [address] [place] [phone] [email or web address] 12/14/2024 12:45 PM EGG SORTER Lab MD [facility] [place] - Diagnostic Laboratory Center [address] [place] [address] Marbella Pereira PA [address] [place] [phone] [email or web address] 12/14/2024 1:45 PM EGG SORTER Infusion MD [place] - Infusion [address] [place] [address] Marbella Pereira PA [address] [place] [phone] [email or web address] 02/15/2025 2:00 PM CDT Telemedicine [facility] 12[address] [facility], 7th [place] [address] Al Quick IV, MD [address] [place] [phone] [email or web address] Health Maintenance Due Date Last Done Comments Pneumococcal Vaccine: 65+ Ye ars (1 of 2 - PCV) 1951 COVID-19 Vaccine (3 - Moderna risk series) 01/23/2021 12/26/2020, 11/29/2020 Influenza Vaccine (#1) 2024 Medical Devices Implanted Type Area Framing Mill Operator Device Identifier Shelf Expiration Date Model / Serial / Lot Port Implinfn Powerport Clrvu - Sn/A Implanted:Qty: 1 on 07/26/2024 by Jac Craig MD at [facility] Port Left: Internal Jugular [employer] [id number] 04/16/2025 [id number] / N/A / [id number] Description:CATHETER LENGTH- 27 CM Cardiac Stent Stent Description:Per [facility] policy conditional Biliary Stent- Implanted:12/19 (Quantity not on file) Stent Bile Duct Description:Placed in 024 at [facility], Per in ok to proceed up to 3T on normal operating mode. Cleared on 01/16/24 @4:20pm Stent Ureteral Firm 6fr X 24cm - Sn/A Implanted:Qty: 1 on 06/19/2024 by Al Quick IV, MD at [facility] Stent Right: Ureter [employer] 12/01/2026 [id number] / N/A / [id number] Stent Right: Kidney Procedures Procedure Name Priority Date/Time Associated Diagnosis Comments .CBC Routine 09/21/2024 8:13 AM EGG SORTER Cholangiocarcino ma CARCINOEMBRYONIC ANTIGEN Routine 8:13 AM EGG SORTER Cholangiocarcino ma CARBOHYDRATE ANTIGEN 19-9 Routine 2023 8:13 AM EGG SORTER Cholangiocarcino ma FREE THYROXINE Routine 09/21/2024 8:13 AM EGG SORTER Cholangiocarcino ma THYROID STIMULATING HORMONE Routine 03/2024 8:13 AM EGG SORTER Cholangiocarcino ma COMPLETE BLOOD COUNT W/ DIFFERENTIAL Routine 09/21/2024 8:13 AM EGG SORTER Cholangiocarcino ma COMPREHENSIVE METABOLIC PANEL Routine 8:13 AM EGG SORTER Cholangiocarcino ma GALECTIN 3 Routine 09/21/2024 8:13 AM EGG SORTER Cholangiocarcino ma HEMOGLOBIN A1C Add-On 08/31/2024 9:35 AM CDT Type 2 diabetes mellitus with hyperglycemia URINALYSIS MICROSCOPIC EXAM Routine 08/17 9:35 AM CDT Cholangiocarcino ma .CBC Routine 08/31/2024 9:35 AM CDT Cholangiocarcino ma URINALYSIS WITH MICROSCOPIC IF INDICATED Routine 08/31/2024 9:35 AM CDT Cholangiocarcino ma MAGNESIUM LEVEL Routine 08/31/2024 9:35 AM CDT Cholangiocarcino ma LACTATE DEHYDROGENASE Routine 08/31/2024 9:35 AM CDT Cholangiocarcino ma COMPREHENSIVE METABOLIC PANEL Routine 9:35 AM CDT Cholangiocarcino ma COMPLETE BLOOD COUNT W/ DIFFERENTIAL Routine 08/31/2024 9:35 AM CDT Cholangiocarcino ma URINE CULTURE Routine 08/31/2024 9:35 AM CDT Cholangiocarcino ma CT CHEST ABDOMEN PELVIS W WO CONTRAST Routine 08/23/2024 8:20 AM CDT Cholangiocarcino ma FREE THYROXINE Add-On 08/23/2024 6:58 AM CDT Cholangiocarcino ma THYROID STIMULATING HORMONE Add-On 05/2024 6:58 AM CDT Cholangiocarcino ma .CBC Routine 08/23/2024 6:58 AM CDT Cholangiocarcino ma CARBOHYDRATE ANTIGEN 19-9 Routine 2023 6:58 AM CDT Cholangiocarcino ma COMPREHENSIVE METABOLIC PANEL Routine 6:58 AM CDT Cholangiocarcino ma COMPLETE BLOOD COUNT W/ DIFFERENTIAL Routine 08/23/2024 6:58 AM CDT Cholangiocarcino ma POC GLUCOSE SCREEN Routine 07/30/2024 8:02 AM CDT .CBC Routine 07/30/2024 5:41 AM CDT COMPREHENSIVE METABOLIC PANEL Routine 5:41 AM CDT COMPLETE BLOOD COUNT W/ DIFFERENTIAL Routine 07/30/2024 5:41 AM CDT PHOSPHORUS LEVEL Routine 07/30/2024 5:41 AM CDT MAGNESIUM LEVEL Routine 07/30/2024 5:41 AM CDT POC GLUCOSE SCREEN Routine 07/29/2024 9:12 PM CDT POC GLUCOSE SCREEN Routine 07/29/2024 6:49 PM CDT POC GLUCOSE SCREEN Routine 07/29/2024 1:18 PM CDT POC GLUCOSE SCREEN Routine 07/29/2024 7:53 AM CDT DIFFERENTIAL Routine 07/29/2024 5:51 AM CDT .CBC Routine 07/29/2024 5:51 AM CDT CALCIUM IONIZED, VENOUS Routine 07/29/20 5:51 AM CDT BASIC METABOLIC PANEL, CALCIUM IONIZED Routine 07/29/2024 5:51 AM CDT COMPLETE BLOOD COUNT W/ DIFFERENTIAL Routine 07/29/2024 5:51 AM CDT PHOSPHORUS LEVEL Routine 07/29/2024 5:51 AM CDT CALCIUM LEVEL Routine 07/29/2024 5:51 AM CDT MAGNESIUM LEVEL Routine 07/29/2024 5:51 AM CDT BASIC METABOLIC PANEL, CALCIUM IONIZED Routine 07/29/2024 5:51 AM CDT HIV 1/2 ANTIGEN/ANTIBODY, FOURTH GEN W/RFL Routine 07/29/2024 5:51 AM CDT POC GLUCOSE SCREEN Routine 07/28/2024 9:28 PM CDT POC GLUCOSE SCREEN Routine 07/28/2024 8:30 PM CDT POC GLUCOSE SCREEN Routine 07/28/2024 12:32 PM CDT BETA-HYDROXYBUTYRATE QUANTITATIVE STAT 07/28/2024 12:25 PM CDT BLOOD GAS VENOUS STAT 07/28/2024 12:25 PM CDT HC PROCALCITONIN (PCT) STAT 9:49 AM CDT .CBC STAT 07/28/2024 9:49 AM CDT LACTIC ACID, VENOUS STAT 07/28/2024 9:49 AM CDT PHOSPHORUS LEVEL STAT 07/28/2024 9:49 AM CDT MAGNESIUM LEVEL STAT 07/28/2024 9:49 AM CDT BASIC METABOLIC PANEL, CALCIUM TOTAL STAT 07/28/2024 9:49 AM CDT COMPLETE BLOOD COUNT W/ DIFFERENTIAL STAT 07/28/2024 9:49 AM CDT US LEG VENOUS DOPPLER LEFT Routine 07/28 5:[address] ABDOMEN PELVIS W CONTRAST Routine 09/2024 12:20 AM CDT XR CHEST 1 VW Routine 07/27/2024 10:23 PM CDT URINALYSIS MICROSCOPIC EXAM Routine 07/18 9:31 PM CDT URINALYSIS WITH MICROSCOPIC IF INDICATED Routine 07/27/2024 9:31 PM CDT URINE CULTURE Routine 07/27/2024 9:31 PM CDT POC VENOUS BLOOD GAS + LACTATE Routine 07/27/2024 8:39 PM CDT RESPIRATORY MULTIPLEX PCR PANEL, NASOPHARYNGEAL SWAB Routine 07/27/2024 8:38 PM CDT DIFFERENTIAL Routine 07/27/2024 8:34 PM CDT .CBC Routine 07/27/2024 8:34 PM CDT SEDIMENTATION RATE NON-AUTOMATED Routine 07/27/2024 8:34 PM CDT HC PROCALCITONIN (PCT) Routine 8:34 PM CDT C REACTIVE PROTEIN Routine 07/27/2024 8:34 PM CDT LACTATE DEHYDROGENASE Routine 07/27/2024 8:34 PM CDT FRACTIONATED BILIRUBIN Routine 8:34 PM CDT PHOSPHORUS LEVEL Routine 07/27/2024 8:34 PM CDT MAGNESIUM LEVEL Routine 07/27/2024 8:34 PM CDT COMPREHENSIVE METABOLIC PANEL Routine 8:34 PM CDT COMPLETE BLOOD COUNT W/ DIFFERENTIAL Routine 07/27/2024 8:34 PM CDT BLOOD CULTURE Routine 07/27/2024 8:34 PM CDT .CBC Routine 07/27/2024 9:48 AM CDT [facility] ma CARCINOEMBRYONIC ANTIGEN Routine 024 9:48 AM CDT [facility] CARBOHYDRATE ANTIGEN 19-9 Routine 2023 9:48 AM CDT [facility] ma FREE THYROXINE Routine 07/27/2024 9:48 AM CDT [facility] THYROID STIMULATING HORMONE Routine 07/18 9:48 AM CDT [facility] ma COMPLETE BLOOD COUNT W/ DIFFERENTIAL Routine 07/27/2024 9:48 AM CDT [facility] ma COMPREHENSIVE METABOLIC PANEL Routine 9:48 AM CDT [facility] ma GALECTIN 3 Routine 07/27/2024 9:48 AM CDT [facility]angi[facility]arc[facility] ma FL CENTRAL VENOUS PLACE EXCHANGE Routine 07/26/2024 3:03 PM CDT Malignant neoplasm of intrahepatic bile ducts XR CHEST 1 VW POST IMPLANT STAT 07/26 1:11 PM CDT POC GLUCOSE SCREEN Routine 07/26/2024 12:53 PM CDT VASCULAR ACCESS BUNDLE Routine 11:24 AM CDT NH US VASC ACCESS SITS VSL PATENCY NDL ENTRY 07/26/2024 10:54 AM CDT [facility]angiocarcino ma Special Needs PW @ 07:30 AM LUGO 4 F/M NH FLUORO CENTRAL VENOUS ACCESS DEV PLACEMENT 07/26/2024 10:54 AM CDT [facility]angi[facility]arcino ma Special Needs PW @ 07:30 AM LUGO 4 F/M NH INSJ TUNNELED CTR VAD W/SUBQ PORT AGE 5 YR/> 07/26/2024 10:54 AM CDT [facility]angi[facility]arc[facility] ma Special Needs PW @ 07:30 AM LUGO 4 F/M POC GLUCOSE SCREEN Routine 07/26/2024 10:16 AM [...] WO CONTRAST Routine 07/16/2024 10:26 AM CDT [facility]angi[facility]arc[facility] ma POC CREATININE Routine 07/16/2024 9:38 AM CDT DIFFERENTIAL Routine 07/13/2024 10:01 AM CDT [facility]angi[facility]arc[facility] ma .CBC Routine 07/13/2024 10:01 AM CDT [facility]angi[facility]arc[facility] ma COMPLETE BLOOD COUNT W/ DIFFERENTIAL Routine 07/13/2024 10:01 AM CDT [facility] ma COMPREHENSIVE METABOLIC PANEL Routine 10:01 AM CDT [facility]angi[facility]arcino ma POC GLUCOSE SCREEN Routine 07/08/2024 8:09 AM [...] CORE ANTIBODY Routine 2023 10:21 PM CDT HC REF AB TO HEP B COR IGM Routine 07/07 10:21 PM CDT HEPATITIS B SURFACE ANTIBODY [...] OSI CHEST Routine 07/04/2024 9:17 AM CDT Ch[facility]angi[facility]arcino ma DIFFERENTIAL Routine 06/29/2024 9:49 AM CDT [facility]angiocarcino ma .CBC Routine 06/29/2024 9:49 AM CDT [facility]angi[facility]arc[facility] ma CARCINOEMBRYONIC ANTIGEN Routine 024 9:49 AM CDT [facility]arc[facility] ma CARBOHYDRATE ANTIGEN 19-9 Routine 2023 9:49 AM CDT [facility]angi[facility]arc[facility] ma FREE THYROXINE Routine 06/29/2024 9:49 AM CDT [facility] ma THYROID STIMULATING HORMONE Routine 06/17 9:49 AM CDT [facility]angi[facility]arc[facility] ma COMPLETE BLOOD COUNT W/ DIFFERENTIAL Routine 06/29/2024 9:49 AM CDT [facility]angi[facility]arc[facility] ma COMPREHENSIVE METABOLIC PANEL Routine 9:49 AM CDT [facility] ma GALECTIN 3 Routine 06/29/2024 9:49 AM CDT Cholangiocarcino ma POC GLUCOSE SCREEN Routine 06/19/2024 1:06 PM CDT FL PORTABLE FLUOROSCOPY Routine 06/19/20 11:57 AM CDT Calculus of kidney and ureter PATHOLOGY SURGICAL INTERPRETATION Routine 06/19/2024 8:42 AM CDT Calculus of kidney and ureter STONE ANALYSIS KIDNEY Routine 06/19/2024 8:42 AM CDT NH CYSTO W/URETEROSCOPY W/LITHOTRIPSY 06/19/2024 7:28 AM CDT Calculus of kidney and ureter Special Needs [id number] case to remain in a first startNeed following items for case: access sheath (not sure of the size yet), the flexible ureteroscope, 200 micron laser, NGage basket, and fluoro. NH CYSTO W/URETEROSCOPY W/RMVL/MANJ STONES 06/19/2024 7:28 AM CDT Calculus of kidney and ureter Special Needs [id number] case to remain in a first startNeed following items for case: access sheath (not sure of the size yet), the flexible ureteroscope, 200 micron laser, NGage basket, and fluoro. POC GLUCOSE SCREEN Routine 06/19/2024 6:41 AM CDT DIFFERENTIAL Routine 06/15/2024 7:31 AM CDT Cholangiocarcino ma MDA CP PRMYEF Routine 06/15/2024 7:31 AM CDT [facility]angiocarcino ma .CBC Routine 06/15/2024 7:31 AM CDT [facility]angiocarcino ma COMPLETE BLOOD COUNT W/ DIFFERENTIAL Routine 06/15/2024 7:31 AM CDT [facility]angi[facility]arc[facility] ma COMPREHENSIVE METABOLIC PANEL Routine 7:31 AM CDT [facility]olangiocarcino ma VAP PORT REMOVAL Routine 06/07/2024 10:15 AM CDT Cholangiocarcino ma of biliary tract, NOS XR CHEST 1 VW PORTABLE STAT 9:19 AM CDT Encounter for adjustment and management of vascular access device VAP PICC INSERTION W US >5 YEARS OLD Routine 06/07/2024 8:38 AM CDT [facility]angi[place]arcino ma of biliary tract, NOS VERIFY CATHETER TIP [...] device DIFFERENTIAL Routine 06/02/2024 10:20 AM CDT Cholangiocarcino ma MDA CP PRMYEF Routine 06/02/2024 10:20 AM CDT [facility]angiocarcino ma .CBC Routine 06/02/2024 10:20 AM CDT Cholangiocarcino ma CARCINOEMBRYONIC ANTIGEN Routine 024 10:20 AM CDT [facility]angi[facility]arcino ma CARBOHYDRATE ANTIGEN 19-9 Routine 2023 10:20 AM CDT [facility]angi[facility]arcino ma FREE THYROXINE Routine 06/02/2024 10:20 AM CDT [facility]angi[facility]arcino ma THYROID STIMULATING HORMONE Routine 05/17 10:20 AM CDT [facility]angi[facility]arcino ma COMPLETE BLOOD COUNT W/ DIFFERENTIAL Routine 06/02/2024 10:20 AM CDT [facility]angi[facility]arc[facility] ma COMPREHENSIVE METABOLIC PANEL Routine 10:20 AM CDT [facility]angiocarcino ma GALECTIN 3 Routine 06/02/2024 10:20 AM CDT Cholangiocarcino ma POC GLUCOSE SCREEN Routine 05/29/2024 7:18 AM [...] GLUCOSE SCREEN Routine 05/27/2024 1:30 PM CDT NH GI TRC IMG INTRALUMINAL ESOPHAGUS-ILEUM W/I&R 05/27/2024 9:19 AM CDT Melena Anemia, not otherwise specified 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 restarted 7 after > 7 day hold. LD 05/26. Do not plan for biopsy, clipping or procedural intervention that increases bleeding risk. 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 restarted 7 after > 7 day hold. LD 05/26. Do not plan for biopsy, clipping or procedural intervention that increases bleeding risk. 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 restarted 7 after > 7 day hold. LD 05/26. [...] GLUCOSE SCREEN Routine 05/21/2024 3:08 PM CDT NH COLONOSCOPY FLX DX W/DEEPAK J SPEC WHEN PFRMD 05/21/2024 1:54 PM CDT Melena Anemia, not otherwise specified Special Needs LD plavix 05/15; recent CT (02/2024) with stent. Cardiology reviewed and reports patiet is at intermediate risk for low to intermiediate risk surgery and no further testing is needed before proceudre. NH ESOPHAGOGASTRODUODENOSCOP Y TRANSORAL DIAGNOSTIC 05/21/2024 1:54 PM [...] CDT DIFFERENTIAL Routine 05/04/2024 8:42 AM CDT [facility]angi[facility]arcino ma of biliary tract, NOS .CBC Routine 05/04/2024 8:42 AM CDT [facility]angi[place]arcino ma of biliary tract, NOS GALECTIN 3 Routine 05/04/2024 8:42 AM CDT [facility]arc[facility] ma of biliary tract, NOS CARCINOEMBRYONIC ANTIGEN Routine 024 8:42 AM CDT [facility]angi[place]arc[facility] ma of biliary tract, NOS CARBOHYDRATE ANTIGEN 19-9 Routine 2023 8:42 AM CDT [place]angi[place]arc[place] ma of biliary tract, NOS FREE THYROXINE Routine 05/04/2024 8:42 AM CDT [facility]angi[place]arc[place] ma of biliary tract, NOS THYROID STIMULATING HORMONE Routine 04/17 8:42 AM CDT [facility]angi[place]arc[facility] ma of biliary tract, NOS COMPLETE BLOOD COUNT W/ DIFFERENTIAL Routine 05/04/2024 8:42 AM CDT [facility]angi[facility]arc[facility] ma of biliary tract, NOS COMPREHENSIVE METABOLIC PANEL Routine 8:42 AM CDT [facility]angi[facility]arcino ma of biliary tract, NOS .CBC Routine 04/20/2024 8:22 AM CDT Cholangiocarcino ma of biliary tract, NOS COMPLETE BLOOD COUNT W/ DIFFERENTIAL Routine 04/20/2024 8:22 AM CDT [facility]angi[facility]arcino ma of biliary tract, NOS COMPREHENSIVE METABOLIC PANEL Routine 8:22 AM CDT [facility]angi[facility]arcino ma of biliary tract, NOS CT CHEST ABDOMEN PELVIS W WO CONTRAST Routine 04/06/2024 3:12 PM CDT [facility]angi[facility]arcino ma of biliary tract, NOS DIFFERENTIAL Routine 04/06/2024 6:46 AM CDT [facility]angiocarcino ma of biliary tract, NOS .CBC Routine 04/06/2024 6:46 AM CDT [facility]angiocarcino ma of biliary tract, NOS GALECTIN 3 Routine 04/06/2024 6:46 AM CDT [facility]angi[facility]arcino ma of biliary tract, NOS CARCINOEMBRYONIC ANTIGEN Routine 024 6:46 AM CDT [place]angi[place]arc[place] ma of biliary tract, NOS CARBOHYDRATE ANTIGEN 19-9 Routine 2023 6:46 AM CDT [place]angi[place]arc[place] ma of biliary tract, NOS FREE THYROXINE Routine 04/06/2024 6:46 AM CDT [facility]angi[facility]arcino ma of biliary tract, NOS THYROID STIMULATING HORMONE Routine 03/18 6:46 AM CDT [facility]angi[facility]arcino ma of biliary tract, NOS COMPLETE BLOOD COUNT W/ DIFFERENTIAL Routine 04/06/2024 6:46 AM CDT [facility]olangiocarcino ma of biliary tract, NOS COMPREHENSIVE METABOLIC PANEL Routine 6:46 AM CDT Cholangiocarcino ma of biliary tract, NOS DIFFERENTIAL Routine 03/31/2024 8:56 AM CDT [facility]angiocarcino ma of biliary tract, NOS .CBC Routine 03/31/2024 8:56 AM CDT Cholangiocarcino ma of biliary tract, NOS CARBOHYDRATE ANTIGEN 19-9 Routine 2023 8:56 AM CDT [facility]angiocarcino ma of biliary tract, NOS COMPREHENSIVE METABOLIC PANEL Routine 8:56 AM CDT Cholangiocarcino ma of biliary tract, NOS COMPLETE BLOOD COUNT W/ DIFFERENTIAL Routine 03/31/2024 8:56 AM CDT Cholangiocarcino ma of biliary tract, NOS .CBC Routine 03/09/2024 8:13 AM CDT Cholangiocarcino ma of biliary tract, NOS COMPLETE BLOOD COUNT W/ DIFFERENTIAL Routine 03/09/2024 8:13 AM CDT Cholangiocarcino ma of biliary tract, NOS COMPREHENSIVE METABOLIC PANEL Routine 8:13 AM CDT Cholangiocarcino ma of biliary tract, NOS HEMOGLOBIN A1C Add-On 02/24/2024 7:23 AM CDT Cholangiocarcino ma of biliary tract, NOS DIFFERENTIAL Routine 02/24/2024 7:23 AM CDT [facility]olangiocarcino ma of biliary tract, NOS .CBC Routine 02/24/2024 7:23 AM CDT Ch[facility]angiocarcino ma of biliary tract, NOS CARCINOEMBRYONIC ANTIGEN Routine 024 7:23 AM CDT [facility]angi[facility]arcino ma of biliary tract, NOS CARBOHYDRATE ANTIGEN 19-9 Routine 2023 7:23 AM CDT [facility]angiocarcino ma of biliary tract, NOS FREE THYROXINE Routine 02/24/2024 7:23 AM CDT Cholangiocarcino ma of biliary tract, NOS THYROID STIMULATING HORMONE Routine 07/2024 7:23 AM CDT Cholangiocarcino ma of biliary tract, NOS COMPLETE BLOOD COUNT W/ DIFFERENTIAL Routine 02/24/2024 7:23 AM CDT Cholangiocarcino ma of biliary tract, NOS COMPREHENSIVE METABOLIC PANEL Routine 7:23 AM CDT Cholangiocarcino ma of biliary tract, NOS .CBC Routine 02/10/2024 8:30 AM CDT Cholangiocarcino ma of biliary tract, NOS COMPLETE BLOOD COUNT W/ DIFFERENTIAL Routine 02/10/2024 8:30 AM CDT Cholangiocarcino ma of biliary tract, NOS COMPREHENSIVE METABOLIC PANEL Routine 8:30 AM CDT [facility]angi[facility]arcino ma of biliary tract, NOS CT ABDOMEN PELVIS WO CONTRAST Routine 11:07 AM CDT Cholangiocarcino ma of biliary tract, NOS Right lower quadrant pain .CBC Routine 02/05/2024 9:27 AM CDT Cholangiocarcino ma of biliary tract, NOS Right lower quadrant pain COMPREHENSIVE METABOLIC PANEL Routine 9:27 AM CDT Cholangiocarcino ma of biliary tract, NOS Right lower quadrant pain COMPLETE BLOOD COUNT W/ DIFFERENTIAL Routine 02/05/2024 9:27 AM CDT Cholangiocarcino ma of biliary tract, NOS Right lower quadrant pain .CBC Routine 01/27/2024 9:16 AM CDT Cholangiocarcino ma of biliary tract, NOS TROPONIN T Routine [...] CARCINOEMBRYONIC ANTIGEN Routine 024 9:16 AM CDT [facility]angi[facility]arcino ma of biliary tract, NOS CARBOHYDRATE ANTIGEN 19-9 Routine 2023 9:16 AM CDT [facility]angi[facility]arc[facility] ma of biliary tract, NOS FREE THYROXINE Routine 01/27/2024 9:16 AM CDT Cholangiocarcino ma of biliary tract, NOS THYROID STIMULATING HORMONE Routine 01/15 9:16 AM CDT Cholangiocarcino ma of biliary tract, NOS COMPLETE BLOOD COUNT W/ DIFFERENTIAL Routine 01/27/2024 9:16 AM CDT Cholangiocarcino ma of biliary tract, NOS COMPREHENSIVE METABOLIC PANEL Routine 9:16 AM CDT [facility]olangi[facility]arcino ma of biliary tract, NOS VERIFY CATHETER TIP PLACEMENT Routine 2:18 PM CDT [facility]olangi[facility]arcino ma of biliary tract, NOS XR CHEST 2 VW Routine 01/26/2024 1:30 PM CDT Cholangiocarcino ma of biliary tract, NOS EKG, 12-LEAD (SCHEDULED) Routine 01/26/2024 Immunotherapy for cancer .CBC Routine 01/19/2024 2:09 PM EGG SORTER Ch[facility]angi[place]arcino ma of biliary tract, NOS COMPREHENSIVE METABOLIC PANEL Routine 2:09 PM EGG SORTER Ch[facility]angiocarcino ma of biliary tract, NOS COMPLETE BLOOD COUNT W/ DIFFERENTIAL Routine 01/19/2024 2:09 PM EGG SORTER Ch[facility]angi[facility]arcino ma of biliary tract, NOS MRI ABDOMEN & PELVIS W AND W O CONTRAST Routine 01/16/2024 6:53 PM EGG SORTER [facility]angi[facility]arc[facility] ma of biliary tract, NOS .CBC Routine 01/14/2024 9:53 AM EGG SORTER Ch[facility]angi[facility]arc[facility] ma of biliary tract, NOS CARBOHYDRATE ANTIGEN 19-9 Routine 2023 9:53 AM EGG SORTER [facility]angi[place]arc[place] ma of biliary tract, NOS COMPREHENSIVE METABOLIC PANEL Routine 9:53 AM EGG SORTER [facility] ma of biliary tract, NOS COMPLETE BLOOD COUNT W/ DIFFERENTIAL Routine 01/14/2024 9:53 AM EGG SORTER Ch[facility]angi[facility]arcino ma of biliary tract, NOS CT CHEST WO CONTRAST Routine 01/07/2024 4:49 PM EGG SORTER Cholangi[facility]arcino ma of biliary tract, NOS POC CREATININE Routine 01/07/2024 3:57 PM EGG SORTER OSI INTERVENTIONAL Routine 12/19/2023 11:58 PM EGG SORTER Cancer OSI INTERVENTIONAL Routine 12/09/2023 11:57 PM EGG SORTER Cancer OSI CT CHEST Routine 12/09/2023 11:57 PM EGG SORTER Cancer OSI CT ABDOMEN AND PELVIS Routine 2023 11:57 PM EGG SORTER Cancer PATHOLOGY OUTSIDE INTERPRETATION Routine 12/09/2023 PATHOLOGY OUTSIDE INTERPRETATION Routine 12/09/2023 after 09/29/2023 Results * (ABNORMAL) .CBC (09/21/2024 8:13 AM EGG SORTER) Only the most recent of46 resultswithin the time period is included. White Blood Cell 6.4 4.1 - 10.5 K/uL 09/21/2024 8:23 AM [facility] [place] Red Blood Cell 3.18(L) 4.30 - 6.04 M/uL 09/21/2024 8:23 AM [facility] Hemoglobin 10.2(L) 13.3 - 17.4 g/dL 09/21/2024 8:23 AM [facility] Hematocrit 31.4(L) 39.5 - 51.8 % 09/21/2024 8:23 AM [facility] Mean Cell Volume 99 82 - 99 fL 09/21/2024 8:23 AM [facility] Mean Cell Hemoglobin 32.1 26.6 - 33.2 pg 09/21/2024 8:23 AM [facility] Mean Cell Hemoglobin Concentration 32.5 31.1 - 35.2 g/dL 09/21/2024 8:23 AM [facility] RDW-SD 54.9(H) 37.5 - 49.7 fL 09/21/2024 8:23 AM [facility] Red Cell Diameter Width 14.9 11.6 - 15.5 % 09/21/2024 8:23 AM [facility] Platelet 186 160 - 397 K/uL 09/21/2024 8:23 AM [facility] Mean Platelet Volume 9.3 9.1 - 12.6 fL 09/21/2024 8:23 AM [facility] Neutrophil % 60.9 43.2 - 72.7 % 09/21/2024 8:23 AM [facility] Lymphocyte % 20.8 16.8 - 46.2 % 09/21/2024 8:23 AM [facility] Monocyte % 14.2(H) 5.1 - 12.5 % 09/21/2024 8:23 AM [facility] Eosinophil % 3.5 0.4 - 6.3 % 09/21/2024 8:23 AM [facility] Basophil % 0.3 0.2 - 1.4 % 09/21/2024 8:23 AM [facility] IGRE % 0.3 0.1 - 1.5 % 09/21/2024 8:23 AM [facility] Comment:The IGRE% includes M etamyelocytes, Myelocytes and Promyelocytes. Neutrophil Abs 3.87 1.95 - 7.25 K/uL 09/21/2024 8:23 AM [facility] Lymphocyte Abs 1.32 1.01 - 3.24 K/uL 09/21/2024 8:23 AM [facility] Monocyte Abs 0.90(H) 0.24 - 0.85 K/uL 09/21/2024 8:23 AM [facility] Eosinophil Abs 0.22 0.02 - 0.50 K/uL 09/21/2024 8:23 AM [facility] Basophil Abs 0.02 0.02 - 0.09 K/uL 09/21/2024 8:23 AM [facility] IG Abs 0.02 0.01 - 0.12 K/uL 09/21/2024 8:23 AM [facility] Blood Venous blood specimen / Unknown Port / Unknown 09/21/2024 8:13 AM EGG SORTER 09/21/2024 8:17 AM [facility] [place] BLOOD ORDERABLES Final Resul t [facility] [address] [facility], [facility] [address] [place] [address] * (ABNORMAL) Comprehensive Metabolic Panel (09/21/2024 8:13 AM EGG SORTER) Only the most recent of32 resultswithin the time period is included. Bilirubin Total 1.0 0.0 - 1.2 mg/dL 09/21/2024 8:44 AM [facility] Comment:Indocyanine Green (I CG) may cause falsely elevated bilirubin results. Total and direct bilirubin must not be measured from samples containing indocyanine green. False elevation of total bilirubin can be seen in patients with IgG concentrations above 28 g/L. eGFR 55(L) >=60 mL/min/1. 73 sq. m 09/21/2024 8:44 AM [facility] Comment: The eGFRcr is calculated with [...] G2 fulfill criteria for CKD. Tot Protein 8.1 6.4 - 8.3 gm/dL 09/21/2024 8:44 AM [facility] Calcium Level Total 9.8 8.2 - 10.2 mg/dL 09/21/2024 8:44 AM [facility] Alkaline Phosphatase 290(H) 40 - 129 U/L 09/21/2024 8:44 AM [facility] Albumin Level 3.7 3.5 - 5.2 gm/dL 09/21/2024 8:44 AM [facility] AST 91(H) <=40 U/L 09/21/2024 8:44 AM [facility] ALT 101(H) <=41 U/L 09/21/2024 8:44 AM [facility] Sodium Level 136 136 - 145 mmol/L 09/21/2024 8:44 AM [facility] Potassium Level 4.2 3.4 - 4.5 mmol/L 09/21/2024 8:44 AM [facility] Chloride 102 98 - 107 mmol/L 09/21/2024 8:44 AM [facility] CO2 22 22 - 29 mmol/L 09/21/2024 8:44 AM [facility] Anion Gap 12 4 - 14 mmol/L 09/21/2024 8:44 AM [facility] Creatinine 1.31(H) 0.67 - 1.17 mg/dL 09/21/2024 8:44 AM [facility] BUN 22 6 - 23 mg/dL 09/21/2024 8:44 AM [facility] Glucose Level 185(H) 70 - 99 mg/dL 09/21/2024 8:44 AM [facility] Comment: Effective 06/12/16, the glucose reference intervals have been updated based on [place] [employer] guidelines (Standards of Medical Care in Diabetes 2016. Diabetes Care 2016; 39: S13-S22). Fasting blood glucose: Normal: 70-99 mg/dL Impaired fasting glucose (increased risk for diabetes or pre-diabetes): 100-125 mg/dL Diabetes mellitus: >/=126 mg/dL Random blood glucose: Normal: 70-199 mg/dL Note: Random glucose >100 mg/dL is associated with increased risk for diabetes. Blood Venous blood specimen / Unknown Port / Unknown 09/21/2024 8:13 AM EGG SORTER 09/21/2024 8:17 AM EGG SORTER [facility] LAB BLOOD ORDERABLES Final Resul t Performing Organization Address City/[facility]/ZIP Co de Phone Number [facility] [address] [facility], [facility] [address] [place] [address] * Galectin-3 (09/21/2024 8:13 AM EGG SORTER) Only the most recent of6 resultswithin the time period is included. Galectin3 [facility] 17.8 <=22.1 ng/mL 09/28/2024 1:48 PM EGG SORTER [facility] Comment: Elevated galectin-3 is associated with greater cardiovascular risk and poor outcome in heart failure patients: </= 17.8 ng/mL (low risk); 17.9-25.9 ng/mL (intermediate risk); >25.9 ng/mL (high risk). Results should be interpreted in the context of the individual patient presentation. Test Performed by: [place] [address] Intelligence Manager: Mau Thakkar Ph.D.; CLIA# [id number] Blood Venous blood specimen / Unknown Port / Unknown 09/21/2024 8:13 AM EGG SORTER 09/21/2024 8:17 AM EGG SORTER [facility] LAB BLOOD ORDERABLES Final Resul t [facility] * (ABNORMAL) CA 19-9 (09/21/2024 8:13 AM EGG SORTER) Only the most recent of11 resultswithin the time period is included. CA 19-9 71.0(H) <=35.0 U/mL 09/21/2024 8:51 AM [facility] [place] Blood Venous blood specimen / Unknown Port / Unknown 09/21/2024 8:13 AM EGG SORTER 09/21/2024 8:17 AM EGG SORTER Narrative [place] - 09/21/2024 8:51 AM EGG SORTER Results greater than 9500 U/mL may not be reliable due to matrix effect with extended dilution as it exceeds the first calender worker's recommended limit. Caution should be exercised when interpreting such values and done in conjunction with clinical context. This test is measured by electrochemiluminescence immunoassay on [employer] immunoassay analyzers. Results obtained in different methods are not interchangeable. [facility] LAB BLOOD ORDERABLES Final Resul t Performing Organization Address [facility] Co de Phone Number [address] [address] * (ABNORMAL) TSH (09/21/2024 8:13 AM EGG SORTER) Only the most recent of11 resultswithin the time period is included. Thyroid Stimulating Hormone 34.15(H) 0.27 - 4.20 mcunit/mL 09/21/2024 8:51 AM [facility] Blood Venous blood specimen / Unknown Port / Unknown 09/21/2024 8:13 AM EGG SORTER 09/21/2024 8:17 AM EGG SORTER Result [facility] LAB BLOOD ORDERABLES Final Resul t Performing Organization Address City/[facility] Co de Phone Number [address] [address] * Free T4 (09/21/2024 8:13 AM EGG SORTER) Only the most recent of11 resultswithin the time period is included. T4 (Thyroxine) Free 0.99 0.92 - 1.68 ng/dL 09/21/2024 8:51 AM [facility] Blood Venous blood specimen / Unknown Port / Unknown 09/21/2024 8:13 AM [facility] 09/21/2024 8:17 AM [facility] LAB BLOOD ORDERABLES Final Resul t Performing Organization Address [facility] Co de Phone Number [address], [facility] [address] [place] [address] * CEA (09/21/2024 8:13 AM [facility]) Only the most recent of8 resultswithin the time period is included. Carcinoembryonic Antigen 3.3 <=3.8 ng/mL 09/21/2024 8:51 AM [facility] Blood Venous blood specimen / Unknown Port / Unknown 09/21/2024 8:13 AM [facility] 09/21/2024 8:17 AM [facility] - 09/21/2024 8:51 AM [facility] Reference Ranges (age 20-69 years): Non-smoker: <= 3.8 ng/mL Smoker: <= 5.5 ng/mL This test is measured by electrochemiluminescence immunoassay on [employer] immunoassay analyzers. Results obtained in different methods are not interchangeable. [facility] Kelli GRAJEDA LAB BLOOD ORDERABLES Final Resul t Performing Organization Address [facility] Co de Phone Number [address], [facility] [address] [place] [address] * Urinalysis Microscopic Exam (08/31/2024 9:35 AM CDT) Only the most recent of3 resultswithin the time period is included. Urine Mucous Trace Not Seen, Trace /HPF 08/31/2024 10:28 AM CDT [facility] Urine Bacteria Not Seen Not Seen /HPF 08/31/2024 10:28 AM CDT [facility] Urine Squamous Epithelial Cells Not Seen Not Seen, OCC, Rare /HPF 08/31/2024 10:28 AM CDT [facility] Urine WBC 2 <=2 /HPF 08/31/2024 10:28 AM CDT [facility] Urine RBC 1 <=2 /HPF 08/31/2024 10:28 AM CDT [facility] Urine Hyaline Casts 1 <=2 /LPF 08/31/2024 10:28 AM CDT [facility] Urine (Urine Clean Catch) Non-blood Collection / Unknown 08/31/2024 9:35 AM CDT 08/31/2024 9:47 AM CDT Bonnie Oneill APRN LAB BLOOD ORDERABLES Final Result [facility] Unless otherwise noted, all lab tests performed by: Division of Pathology and Laboratory Medicine [address] [place] [id number] * (ABNORMAL) Urinalysis w/Microscopic if Indicated (08/31/2024 9:35 AM CDT) Only the most recent of4 resultswithin the time period is included. Urine Appearance Clear Clear 08/31/20 10:20 AM CDT [facility] Urine Color Straw Colorless, Straw, Yellow, Dark Yellow, Straw-Yellow 08/31/2024 10:20 AM CDT [facility] Urine Specific [place] 1.013 1.003 - 1.035 08/31/2024 10:20 AM CDT [facility] Urine pH 6.0 5.0 - 8.0 08/31/2024 10:20 AM CDT [facility] Urine Glucose Negative Negative mg/dL 08/31/2024 10:20 AM CDT [facility] Urine Ketones Negative Negative mg/dL 08/31/2024 10:20 AM CDT [facility] Urine Blood Negative Negative 08/31/2024 10:20 AM CDT [facility] Urine Protein 50(A) Negative mg/dL 08/31/2024 10:20 AM CDT [facility] Urine Bilirubin Negative Negative 10:20 AM CDT [facility] Urine Urobilinogen Negative Negative 08/31/2024 10:20 AM CDT [facility] Urine Nitrite Negative Negative 08/31/2024 10:20 AM CDT [facility] Urine Leukocyte Esterase Negative Negative 08/31/2024 10:20 AM CDT [facility] Urine (Urine Clean Catch) Non-blood Collection / Unknown 08/31/2024 9:35 AM CDT 08/31/2024 9:47 AM CDT Narrative [facility] - 08/31/2024 10:20 AM CDT Some reporting parameters within the Urinalysis test have changed due to the implementation of new instrumentation in the [place], allowing greater sensitivity of measurement. Urinalysis results reported by the [facility] using existing instrumentation, as well as Urinalysis testing performed manually or by back-up methodology at the main [facility], will remain relatively unchanged. New reporting parameters and units will now be reported for all campuses. Bonnie Oneill APRN URINE ORDERABLES Final Res ult Performing Organization Address City/[facility]/ZIP Co de Phone Number [facility] Unless otherwise noted, all lab tests performed by: Division of Pathology and Laboratory Medicine [address] [place] [id number] * Urine Culture (08/31/2024 9:35 AM CDT) Only the most recent of4 resultswithin the time period is included. Urine Culture No Growth. 09/02/2024 9:16 AM CDT [facility] Urine (Urine Clean Catch) Non-blood Collection / Unknown 08/31/2024 9:35 AM CDT 08/31/2024 9:47 AM CDT Bonnie Oneill APRN MICROBIOLOGY - GENERAL ORD ERABLES Final Result [facility] Unless otherwise noted, all lab tests performed by: Division of Pathology and Laboratory Medicine [address] [place] [id number] * Magnesium Level (08/31/2024 9:35 AM CDT) Only the most recent of27 resultswithin the time period is included. Magnesium Level 1.8 1.6 - 2.6 mg/dL 08/31/2024 10:52 AM CDT [facility] Blood Peripheral blood specimen / Unknown Venipuncture / Unknown 08/31/2024 9:35 AM CDT 08/31/2024 9:57 AM CDT Bonnie Oneill APRN LAB BLOOD ORDERABLES Final Result Performing Organization Address City/[facility] Co de Phone Number [facility] Unless otherwise noted, all lab tests performed by: Division of Pathology and Laboratory Medicine [address] [place] [id number] * (ABNORMAL) LDH (08/31/2024 9:35 AM CDT) Only the most recent of3 resultswithin the time period is included. LDH 234(H) 135 - 225 U/L 08/31/2024 10:52 AM CDT [facility] Blood Peripheral blood specimen / Unknown Venipuncture / Unknown 08/31/2024 9:35 AM CDT 08/31/2024 9:57 AM CDT Narrative [facility] - 08/31/2024 10:52 AM CDT Results greater than 1651 U/L may not be reliable due to matrix effect with extended dilution as it exceeds the first calender worker's recommended limit. Caution should be exercised when interpreting such values and done in conjunction with clinical context. Bonnie Oneill APRN LAB BLOOD ORDERABLES Final Result Performing Organization Address [facility] de Phone Number [facility] Unless otherwise noted, all lab tests performed by: Division of Pathology and Laboratory Medicine [address] [place] [id number] * (ABNORMAL) Hemoglobin A1c (08/31/2024 9:35 AM CDT) Only the most recent of3 resultswithin the time period is included. Hemoglobin A1c 7.5(H) 4.3 - 5.6 % 09/02/2024 2:31 PM CDT [facility] Blood Peripheral blood specimen / Unknown Venipuncture / Unknown 08/31/2024 9:35 AM CDT 08/31/2024 9:57 AM CDT Narrative [facility] - 09/02/2024 2:31 PM CDT HbA1c values >=6.5% are diagnostic of diabetes mellitus. Diagnosis should be confirmed by repeat testing. Therapeutic Action suggested: >8.0% HbA1c; Goal of therapy: <7.0% HbA1c us Eugene Martinez MD LAB BLOOD ORDERABLES Final Resul t [facility] Unless otherwise noted, all lab tests performed by: Division of Pathology and Laboratory Medicine [facility] [place] [address] * CT Chest Abdomen Pelvis with and without Contrast (08/23/2024 8:20 AM CDT) Only the most recent of3 resultswithin the time period is included. Anatomical Region Laterality Modality Abdomen, Pelvis, Chest Computed Tomography 08/23/2024 8:41 AM CDT Impressions 08/23/2024 9:33 AM CDT 1. Stable intra and extrahepatic ducts with a common bile duct, wall sheath stent remaining in place into segment 3. 2. Stable small left fissure soft tissue. 3. Stable liver with no new focal abnormality or definite metastasis. The findings in the liver can be continuously followed on a routine basis. 4. Most likely postsurgical change along the hepatoduodenal ligament and omentum. ACTIONABLE ITEMS/RECOMMENDATIONS*: None. *An Actionable Finding is a finding that may be unrelated to the original reason for imaging but potentially actionable, meaning further investigation may be necessary. The Actionable Findings Vigilance Unit (AFVU) assists medical providers with responding to additional radiologic findings that are unexpected and potentially actionable. Narrative 08/23/2024 9:33 AM CDT FULL RESULT: Examination: CT CHEST ABDOMEN PELVIS W WO CONTRAST on 08/23/2024 8:20 AM. Clinical History: Cholangiocarcinoma. Indication: restage. Comparison: Previous CTs including the most recent CT of 01/05/2024. Technique: CT CHEST ABDOMEN PELVIS W WO CONTRAST. Chronic changes in the lungs have been stable. Mediastinum and hilum remain free of lymphadenopathy. Supraclavicular chains are clear. The port of the port catheter is noted on the left upper anterior chest wall with the tip at the level of the low superior vena cava. Status post cholecystectomy. A wall sheath stent along the common bile duct remains in place, into segment 3 duct. Diffuse a hypoattenuating density along the hepatoduodenal ligament is again noted, unchanged since 07/16/2024, can be postsurgical. This is new since 11/2023. Soft tissue density at the left fissure (image #38, series 11, image #93 series #24) has been relatively stable since 07/28/2024 with minimal change since 11/2023. Pneumobilia has been relatively stable. The ill-defined density noted on the recent CT cannot be confirmed at this time. An ill-defined, subcentimeter hypoattenuating density at the dome of right lobe of liver (image #12 series 7, image #30 series #24) has been stable since the MRI of 01/16/2024, remains indeterminate. Additionally, there is an approximately 2 cm area of heterogeneous density in segment 5 (image #59, series 11) with a questionable clinical significance. A focal, ill-defined hyper attenuating density (image #51 series 11) is associated with vascular anomaly. Pancreas remains within normal limit. 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 Renal cysts have been stable. Adrenals remain unremarkable. Colonic diverticulosis predominantly involving sigmoid and descending colon. An approximately 1.4 cm, rim calcified nodular density anterior perigastric nodular density (image #52 series 11), closed relates due to the perigastric vessels, has been stable back to 11/2023. Visualized loops of bowel are within normal limits, otherwise. Fat necrosis in the omentum. No ascites. No evidence of lymphadenopathy in either abdomen and pelvis. Bones and soft tissue show no new focal abnormality. Procedure Note Clifford Busby MD - 08/23/2024 FULL RESULT: Examination: CT CHEST ABDOMEN PELVIS W WO CONTRAST on 08/23/2024 8:20 AM. Clinical History: Cholangiocarcinoma. Indication: restage. Comparison: Previous CTs including the most recent CT of 01/05/2024. Technique: CT CHEST ABDOMEN PELVIS W WO CONTRAST. Chronic changes in the lungs have been stable. Mediastinum and hilumremain free of lymphadenopathy. Supraclavicular chains are clear. The port of the port catheter is noted on the left upper anterior chestwall with the tip at the level of the low superior vena cava. Status post cholecystectomy. A wall sheath stent along the common bileduct remains in place, into segment 3 duct. Diffuse a hypoattenuatingdensity along the hepatoduodenal ligament is again noted, unchanged since07/16/2024, can be postsurgical. This is new since 11/2023. Soft tissue density at the left fissure (image #38, series 11, image #93series #24) has been relatively stable since 07/28/2024 with minimalchange since 11/2023. Pneumobilia has been relatively stable. The ill-defined density noted on the recent CT cannot be confirmed at thistime. An ill-defined, subcentimeter hypoattenuating density at the dome ofright lobe of liver (image #12 series 7, image #30 series #24) has beenstable since the MRI of 01/16/2024, remains indeterminate. Additionally,there is an approximately 2 cm area of heterogeneous density in segment 5(image #59, series 11) with a questionable clinical significance. A focal,ill-defined hyper attenuating density (image #51 series 11) is associatedwith vascular anomaly. Pancreas remains within normal limit. A duodenal diverticulum is againnoted. Renal cysts have been stable. Adrenals remain unremarkable. Colonic diverticulosis predominantly involving sigmoid and descendingcolon. An approximately 1.4 cm, rim calcified nodular density anteriorperigastric nodular density (image #52 series 11), closed relates due tothe perigastric vessels, has been stable back to 11/2023. Visualized loopsof bowel are within normal limits, otherwise. Fat necrosis in the omentum. No ascites. No evidence of lymphadenopathy in either abdomen and pelvis. Bones and soft tissue show no new focal abnormality. IMPRESSION: 1. Stable intra and extrahepatic ducts with a common bile duct, wallsheath stent remaining in place into segment 3. 2. Stable small left fissure soft tissue. 3. Stable liver with no new focal abnormality or definite metastasis. Thefindings in the liver can be continuously followed on a routine basis. 4. Most likely postsurgical change along the hepatoduodenal ligament andomentum. ACTIONABLE ITEMS/RECOMMENDATIONS*: None. *An Actionable Finding is a finding that may be unrelated to the originalreason for imaging but potentially actionable, meaning furtherinvestigation may be necessary. The Actionable Findings Vigilance Unit(AFVU) assists medical providers with responding to additional radiologicfindings that are unexpected and potentially actionable. Marbella GRAJEDA IMG CT ORDERABLES Final Result * (ABNORMAL) POC Glucose Screen - Fingerstick (07/30/2024 8:02 AM CDT) Only the most recent of82 resultswithin the time period is included. Glucose Screen 160(H) 70 - 99 mg/dL 07/30/2024 8:03 AM CDT [facility] POC Sample Type Capillary 07/30/2024 8:03 AM CDT [facility] Blood 07/30/2024 8:02 AM CDT 07/30/2024 8:03 AM CDT Narrative [facility] - 07/30/2024 8:03 AM CDT Capillary blood samples, e.g. obtained [...] questionable test results by core lab methodology. Stephen Chavarria MD POCT ORDERABLES - DEVICE Final R esult [facility] Unless otherwise noted, all lab tests performed by: Division of Pathology and Laboratory Medicine [address] [place] [id number] * Phosphorus Level (07/30/2024 5:41 AM CDT) Only the most recent of25 resultswithin the time period is included. Phosphorus Level 2.8 2.5 - 4.5 mg/dL 07/30/2024 6:18 AM CDT [facility] Blood Venous blood specimen / Unknown Port / Unknown 07/30/2024 5:41 AM CDT 07/30/2024 5:47 AM CDT Brooklyn Beauchamp APRN LAB BLOOD ORDERABLES Final Result [facility] Unless otherwise noted, all lab tests performed by: Division of Pathology and Laboratory Medicine [address] [place] [address] * (ABNORMAL) Basic Metabolic Panel- Calcium Ionized (07/29/2024 5:51 AM CDT) eGFR 47(L) >=60 mL/min/1. 73 sq. m 07/29/2024 6:31 AM CDT [facility] Comment: The eGFRcr is calculated with the [...] G1 nor G2 fulfill criteria for CKD. Sodium Level 138 136 - 145 mmol/L 07/29/2024 6:31 AM CDT [facility] Potassium Level 4.2 3.4 - 4.5 mmol/L 07/29/2024 6:31 AM CDT [facility] Chloride 106 98 - 107 mmol/L 07/29/2024 6:31 AM CDT [facility] CO2 24 22 - 29 mmol/L 07/29/2024 6:31 AM CDT [facility] Anion Gap 8 4 - 14 mmol/L 07/29/2024 6:31 AM CDT [facility] Creatinine 1.51(H) 0.67 - 1.17 mg/dL 07/29/2024 6:31 AM CDT [facility] BUN 21 6 - 23 mg/dL 07/29/2024 6:31 AM CDT [facility] Glucose Level 136(H) 70 - 99 mg/dL 07/29/2024 6:31 AM CDT [facility] Comment: Effective 06/12/16, the glucose reference intervals have been updated based on [place] [employer] guidelines (Standards of Medical Care in Diabetes 2016. Diabetes Care 2016; 39: S13-S22). Fasting blood glucose: Normal: 70-99 mg/dL Impaired fasting glucose (increased risk for diabetes or pre-diabetes): 100-125 mg/dL Diabetes mellitus: >/=126 mg/dL Random blood glucose: Normal: 70-199 mg/dL Note: Random glucose >100 mg/dL is associated with increased risk for diabetes. Blood Venous blood specimen / Unknown Port / Unknown 07/29/2024 5:51 AM CDT 07/29/2024 6:00 AM CDT Brooklyn Beauchamp APRN LAB BLOOD ORDERABLES Final Result [facility] Unless otherwise noted, all lab tests performed by: Division of Pathology and Laboratory Medicine [address] [place] [id number] * HIV 1/2 Antigen/Antibody, Fourth Gen W/RFL (07/29/2024 5:51 AM CDT) HIV Ag/Ab, 4TH Gen NON-REACT PAUL NON-REACT PAUL 07/30/2024 1:22 PM CDT [employer] Comment: HIV-1 antigen and HIV-1/HIV-2 antibodies were not detected. There is no laboratory evidence of HIV infection. PLEASE NOTE: This information has been disclosed to you from records whose confidentiality may be protected by state law. If your state requires such protection, then the state law prohibits you from making any further disclosure of the information without the specific written consent of the person to whom it pertains, or as otherwise permitted by law. A general authorization for the release of medical or other information is NOT sufficient for this purpose. For additional information please refer to http://education.[employer].V2contact/faq/PTN247 (This link is being provided for informational/ educational purposes only.) The performance of this assay has not been clinically validated in patients less than 2 years old. Blood Venous blood specimen / Unknown Port / Unknown 07/29/2024 5:51 AM CDT 07/29/2024 6:00 AM CDT Narrative [facility] - 07/30/2024 1:22 PM CDT Performing Organization Information: [facility] [address] [place] [address] Safia Bell Shikha GRAJEDA LAB BLOOD ORDERABLES Final R esult ULYSSES RILEY) * Calcium Ionized, Venous (07/29/2024 5:51 AM CDT) Pathologist [facility] Venous Ionized Calcium 1.23 1.15 - 1.29 mmol/L 07/29/2024 6:02 AM CDT [facility] Oxygen FLOW Rate/ FiO2 07/29/2024 6:02 AM CDT [facility] O2 Therapy 07/29/2024 6:02 AM CDT [facility] Blood Venous blood specimen / Unknown Port / Unknown 07/29/2024 5:51 AM CDT 07/29/2024 6:00 AM CDT us Brooklyn Beauchamp APRN LAB BLOOD ORDERABLES Final Result [facility] Unless otherwise noted, all lab tests performed by: Division of Pathology and Laboratory Medicine [address] [place] [id number] * (ABNORMAL) Differential (07/29/2024 5:51 AM CDT) Only the most recent of31 resultswithin the time period is included. Pathologist [facility] Total Cells 100 07/29/2024 8:15 AM CDT [facility] Manual Neutrophil % 55.0 43.2 - 72.7 % 07/29/2024 8:15 AM CDT [facility] Comment:The Neutrophil count includes Bands. Manual Lymphocyte % 17.0 16.8 - 46.2 % 07/29/2024 8:15 AM CDT [facility] Manual Monocyte % 24.0(H) 5.1 - 12.5 % 07/29/2024 8:15 AM CDT [facility] Manual Eosinophil % 4.0 0.4 - 6.3 % 07/29/2024 8:15 AM CDT [facility] Metamyelocyte % 8:15 AM CDT [facility] Comment:The Metamyelocyte co unt includes Myelocytes. Manual Neutrophil Abs 3.14 1.95 - 7.25 K/uL 07/29/2024 8:15 AM CDT [facility] Manual Lymphocyte Abs 0.97(L) 1.01 - 3.24 K/uL 07/29/2024 8:15 AM CDT [facility] Manual Monocyte Abs 1.37(H) 0.24 - 0.85 K/uL 07/29/2024 8:15 AM CDT [facility] Manual Eosinophil Abs 0.23 0.02 - 0.50 K/uL 07/29/2024 8:15 AM CDT [facility] RBC Morphology PRESENT 07/29/2024 8:15 AM CDT [facility] PLT Morph Normal Normal 07/29/2024 8:15 AM CDT [facility] Anisocytosis Present(A) (none) 07/29/2024 8:15 AM CDT [facility] Ovalocyte Present(A) (none) 07/29/2024 8:15 AM CDT [facility] Blood Venous blood specimen / Unknown Port / Unknown 07/29/2024 5:51 AM CDT 07/29/2024 6:00 AM CDT Brooklyn Beauchamp APRN LAB BLOOD ORDERABLES Final Result [facility] Unless otherwise noted, all lab tests performed by: Division of Pathology and Laboratory Medicine [address] [place] [id number] * Calcium (07/29/2024 5:51 AM CDT) [facility] Calcium Level Total 9.2 8.2 - 10.2 mg/dL 07/29/2024 6:31 AM CDT [facility] Blood Venous blood specimen / Unknown Port / Unknown 07/29/2024 5:51 AM CDT 07/29/2024 6:00 AM CDT [facility] ERBrooklynlexi Beauchamp APRN LAB BLOOD ORDERABLES Final Result Performing Organization Address City/[facility]/ZIP Co de Phone Number [facility] Unless otherwise noted, all lab tests performed by: Division of Pathology and Laboratory Medicine [address] [place] [phone] * Beta Hydroxy Quant (07/28/2024 12:25 PM CDT) [facility] Beta-Hydroxybuty rate 0.14 0.02 - 0.27 mmol/L 07/28/2024 1:02 PM CDT [facility] Is patient fasting? No 07/28/2024 1:02 PM CDT [facility] Comment:A fasting specimen i s recommended and results obtained from non-fasting specimens should be interpreted with caution using reference ranges based on fasting status and in conjunction with clinical context. Blood Peripheral blood specimen / Unknown Port / Unknown 07/28/2024 12:25 PM CDT 07/28/2024 12:35 PM CDT Narrative [facility] - 07/28/2024 1:02 PM CDT Reference range based on fasting. Brooklyn Beauchamp APRN LAB BLOOD ORDERABLES Final Result Performing Organization Address City/[facility]/ZIP Co de Phone Number [facility] Unless otherwise noted, all lab tests performed by: Division of Pathology and Laboratory Medicine [address] [place] [phone] * VBG (07/28/2024 12:25 PM CDT) pH Venous 7.36 7.32 - 7.43 07/28/2024 12:37 PM CDT [facility] P CO2 Venous 44.0 41.0 - 51.0 mmHg 07/28/2024 12:37 PM CDT [facility] P O2 Venous 57 mmHg 07/28/2024 12:37 PM CDT [facility] Bicarbonate Venous 25 21 - 28 mmol/L 07/28/2024 12:37 PM CDT [facility] Base Excess Venous -1 -2 - 3 mmol/L 07/28/2024 12:37 PM CDT [facility] Oxygen Saturation Venous 88 % 07/28/2024 12:37 PM CDT [facility] Oxygen FLOW Rate/ FiO2 0 % 07/28/2024 12:37 PM CDT [facility] O2 Therapy Room air 07/28/2024 12:37 PM CDT [facility] Blood Peripheral blood specimen / Unknown Port / Unknown 07/28/2024 12:25 PM CDT 07/28/2024 12:35 PM CDT Brooklyn Beauchamp APRN LAB BLOOD ORDERABLES Final Result [facility] Unless otherwise noted, all lab tests performed by: Division of Pathology and Laboratory Medicine [address] [place] [id number] * (ABNORMAL) Procalcitonin (07/28/2024 9:49 AM CDT) Only the most recent of4 resultswithin the time period is included. Procalcitonin 0.42(H) <=0.08 ng/mL 07/28/2024 12:50 PM CDT [facility] Blood Peripheral blood specimen / Unknown Port / Unknown 07/28/2024 9:49 AM CDT 07/28/2024 9:58 AM CDT Narrative [facility] - 07/28/2024 12:50 PM CDT Procalcitonin > 2.00 ng/mL: Procalcitonin [...] with extended dilution as it exceeds the first calender worker's recommended limit. Caution should be exercised when interpreting such values and done in conjunction with clinical context. us Brooklyn Beauchamp APRN LAB BLOOD ORDERABLES Final Result [facility] Unless otherwise noted, all lab tests performed by: Division of Pathology and Laboratory Medicine [facility] [place] [address] * (ABNORMAL) Basic Metabolic Panel- Total Calcium (07/28/2024 9:49 AM CDT) Only the most recent of12 resultswithin the time period is included. eGFR 51(L) >=60 mL/min/1. 73 sq. m 07/28/2024 10:34 AM CDT [facility] Comment: The eGFRcr is calculated with the [...] fulfill criteria for CKD. Calcium Level Total 8.7 8.2 - 10.2 mg/dL 07/28/2024 10:34 AM CDT [facility] Sodium Level 131(L) 136 - 145 mmol/L 07/28/2024 10:34 AM CDT [facility] Potassium Level 4.3 3.4 - 4.5 mmol/L 07/28/2024 10:34 AM CDT [facility] Chloride 100 98 - 107 mmol/L 07/28/2024 10:34 AM CDT [facility] CO2 21(L) 22 - 29 mmol/L 07/28/2024 10:34 AM CDT [facility] Anion Gap 10 4 - 14 mmol/L 07/28/2024 10:34 AM CDT [facility] Creatinine 1.41(H) 0.67 - 1.17 mg/dL 07/28/2024 10:34 AM CDT [facility] BUN 25(H) 6 - 23 mg/dL 07/28/2024 10:34 AM CDT [facility] Glucose Level 314(H) 70 - 99 mg/dL 07/28/2024 10:34 AM CDT [facility] Comment: Effective 06/12/16, the glucose reference intervals have been updated based on [place] [employer] guidelines (Standards of Medical Care in Diabetes 2016. Diabetes Care 2016; 39: S13-S22). Fasting blood glucose: Normal: 70-99 mg/dL Impaired fasting glucose (increased risk for diabetes or pre-diabetes): 100-125 mg/dL Diabetes mellitus: >/=126 mg/dL Random blood glucose: Normal: 70-199 mg/dL Note: Random glucose >100 mg/dL is associated with increased risk for diabetes. Blood Peripheral blood specimen / Unknown Port / Unknown 07/28/2024 9:49 AM CDT 07/28/2024 9:58 AM CDT us Brooklyn Beauchamp APRN LAB BLOOD ORDERABLES Final Result [facility] Unless otherwise noted, all lab tests performed by: Division of Pathology and Laboratory Medicine [address] [place] [id number] * (ABNORMAL) Lactic Acid, Venous (07/28/2024 9:49 AM CDT) Venous Lactate 1.7(H) 0.5 - 1.6 mmol/L 07/28/2024 10:02 AM CDT [facility] Oxygen FLOW Rate/ FiO2 0 % 07/28/2024 10:02 AM CDT [facility] O2 Therapy Room air 07/28/2024 10:02 AM CDT [facility] Blood Peripheral blood specimen / Unknown Port / Unknown 07/28/2024 9:49 AM CDT 07/28/2024 9:58 AM CDT us Brooklyn Nito YIN LAB BLOOD ORDERABLES Final Result [facility] Unless otherwise noted, all lab tests performed by: Division of Pathology and Laboratory Medicine [address] [place] [id number] * US Leg Venous Doppler Left (07/28/2024 5:25 AM CDT) Anatomical Region Laterality Modality Leg, Extremity Ultrasound 07/28/2024 5:47 AM CDT Impressions 07/28/2024 5:47 AM CDT No deep venous thrombosis in the left lower extremity. ACTIONABLE ITEMS/RECOMMENDATIONS*: None. *An Actionable Finding is a finding that may be unrelated to the original reason for imaging but potentially actionable, meaning further investigation may be necessary. The Actionable Findings Vigilance Unit (AFVU) assists medical providers with responding to additional radiologic findings that are unexpected and potentially actionable. Narrative 07/28/2024 5:47 AM CDT Examination: US LEG VENOUS DOPPLER LEFT on 07/28/2024 5:25 AM. 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 Indication: Edema, left ankle edema. Comparison: None available. TECHNIQUE: Sonographic evaluation of the deep veins of the left lower extremity is performed assessing grayscale appearance, color and spectral Doppler flow and compressibility. FINDINGS: The common femoral, femoral, proximal deep femoral, and popliteal veins and saphenofemoral junction demonstrate color flow and compressibility. The visualized peroneal, anterior tibial and posterior tibial veins demonstrate color flow. Procedure Note Reji Morrell MD - 07/28/2024 Examination: US LEG VENOUS DOPPLER LEFT on 07/28/2024 5:25 AM. 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 Indication: Edema, left ankle edema. Comparison: None available. TECHNIQUE: Sonographic evaluation of the deep veins of the left lowerextremity is performed assessing grayscale appearance, color and spectralDoppler flow and compressibility. FINDINGS: The common femoral, femoral, proximal deep femoral, and popliteal veinsand saphenofemoral junction demonstrate color flow and compressibility. The visualized peroneal, anterior tibial and posterior tibial veinsdemonstrate color flow. IMPRESSION: No deep venous thrombosis in the left lower extremity. ACTIONABLE ITEMS/RECOMMENDATIONS*: None. *An Actionable Finding is a finding that may be unrelated to the originalreason for imaging but potentially actionable, meaning furtherinvestigation may be necessary. The Actionable Findings Vigilance Unit(AFVU) assists medical providers with responding to additional radiologicfindings that are unexpected and potentially actionable. us Jade Hartley PA-C [facility] US ORDERABLES Fin al Result * CT Abdomen Pelvis with Contrast (07/28/2024 12:20 AM CDT) Anatomical Region Laterality Modality Abdomen, Pelvis Computed Tomogra phy 07/28/2024 12:3 5 AM CDT Impressions 07/28/2024 12:53 AM CDT Mild sigmoid diverticulitis. A new ill-defined hypodensity in hepatic segment 6 may represent perfusion changes, artifact, or less likely small developing abscess. Consider attention in future follow-up. Rest of the study is unchanged. ACTIONABLE ITEMS/RECOMMENDATIONS*: None. *An Actionable Finding is a finding that may be unrelated to the original reason for imaging but potentially actionable, meaning further investigation may be necessary. The Actionable Findings Vigilance Unit (AFVU) assists medical providers with responding to additional radiologic findings that are unexpected and potentially actionable. Narrative 07/28/2024 12:53 AM CDT FULL RESULT: Examination: CT ABDOMEN PELVIS W CONTRAST on 07/28/2024 12:20 AM. Clinical History: Cholangiocarcinoma. Indication: fever. Comparison: 07/16/2024. Technique: CT ABDOMEN PELVIS W CONTRAST. FINDINGS: Lower Thorax: No suspicious pulmonary nodules in the lung bases. Hepatobiliary: There is a new ill-defined hypodensity in segment 6 in image 74 series 5. Differential diagnosis include artifact, perfusion changes, or a small developing abscess. Consider attention in follow-up. Stable positioning of biliary stent from segment 3 bile duct into the duodenum. Stable soft tissue thickening at the hilar confluence of the bile duct. Stable soft tissue thickening encasing the right hepatic artery and portal bifurcation. Cholecystectomy. Spleen: No splenomegaly. Pancreas: No mass or ductal dilatation. Stable suspected cystic lesion the pancreatic body/2 junction image 52 series 5. Adrenal Glands: No mass. Kidneys, Ureters, Bladder: No hydronephrosis. No suspicious renal lesion. Stable bilateral renal cysts and bilateral punctate nonobstructing renal stones. No bladder mass. Previously noted renal stone in the urinary bladder/left ureteral vesical junction has passed/removed. Gastrointestinal Tract: No obstruction. There is mild thickening and enhancing in a diverticulum in the sigmoid colon associated with stranding of the adjacent fat, consistent with mild diverticulitis. No abscess or perforation identified. Pelvic Organs: No pelvic mass. Peritoneum/Retroperitoneum: No ascites. Lymph Nodes: No lymphadenopathy. Stable partially calcified structure in the right mid abdomen that the transverse colon. Musculoskeletal: No suspicious skeletal lesion. Procedure Note Reji Morrell MD - 07/28/2024 FULL RESULT: Examination: CT ABDOMEN PELVIS W CONTRAST on 07/28/2024 12:20 AM. Clinical History: Cholangiocarcinoma. Indication: fever. Comparison: 07/16/2024. Technique: CT ABDOMEN PELVIS W CONTRAST. FINDINGS: Lower Thorax: No suspicious pulmonary nodules in the lung bases. Hepatobiliary: There is a new ill-defined hypodensity in segment 6 inimage 74 series 5. Differential diagnosis include artifact, perfusionchanges, or a small developing abscess. Consider attention in follow-up. Stable positioning of biliary stent from segment 3 bile duct into theduodenum. Stable soft tissue thickening at the hilar confluence of thebile duct. Stable soft tissue thickening encasing the right hepatic arteryand portal bifurcation. Cholecystectomy. Spleen: No splenomegaly. Pancreas: No mass or ductal dilatation. Stable suspected cystic lesion thepancreatic body/2 junction image 52 series 5. Adrenal Glands: No mass. Kidneys, Ureters, Bladder: No hydronephrosis. No suspicious renal lesion.Stable bilateral renal cysts and bilateral punctate nonobstructing renalstones. No bladder mass. Previously noted renal stone in the urinary bladder/leftureteral vesical junction has passed/removed. Gastrointestinal Tract: No obstruction. There is mild thickening andenhancing in a diverticulum in the sigmoid colon associated with strandingof the adjacent fat, consistent with mild diverticulitis. No abscess orperforation identified. Pelvic Organs: No pelvic mass. Peritoneum/Retroperitoneum: No ascites. Lymph Nodes: No lymphadenopathy. Stable partially calcified structure in the right mid abdomen that thetransverse colon. Musculoskeletal: No suspicious skeletal lesion. IMPRESSION: Mild sigmoid diverticulitis. A new ill-defined hypodensity in hepatic segment 6 may represent perfusionchanges, artifact, or less likely small developing abscess. Considerattention in future follow-up. Rest of the study is unchanged. ACTIONABLE ITEMS/RECOMMENDATIONS*: None. *An Actionable Finding is a finding that may be unrelated to the originalreason for imaging but potentially actionable, meaning furtherinvestigation may be necessary. The Actionable Findings Vigilance Unit(AFVU) assists medical providers with responding to additional radiologicfindings that are unexpected and potentially actionable. us Brian Mancilla MD IM CT ORDERABLES Final Resu lt * X-ray Chest 1 View (07/27/2024 10:23 PM CDT) Only the most recent of2 resultswithin the time period is included. Anatomical Region Laterality Modality Chest Digital Radiogra phy 07/27/2024 11:1 2 PM CDT Impressions 07/28/2024 7:19 AM CDT No acute or metastatic disease. ACTIONABLE ITEMS/RECOMMENDATIONS: None. I personally reviewed these image(s) along with the resident's/fellow's interpretations, certify that if a procedure was performed I was physically present, and agree with the final report. Narrative 07/28/2024 7:19 AM CDT FULL RESULT: Examination: XR Chest, 1 View Portable, 07/27/2024 10:23 PM. Clinical History: Cholangiocarcinoma. Indication: Fever. Comparison: Portable AP chest, 07/26/2024. Technique: Portable AP chest, 07/27/2024. Findings: A left IJ Port-A-Cath remains with its tip in the upper SVC. Since the prior study, the ill-defined left lower lung radiopacities have resolved. The heart is normal in size. Prior median sternotomy is seen. Generalized osteoporosis is present. Degenerative changes and mild dextroscoliosis of the thoracic spine are noted. Procedure Note Comse Arredondo MD - 07/28/2024 FULL RESULT: Examination: XR Chest, 1 View Portable, 07/27/2024 10:23 PM. Clinical History: Cholangiocarcinoma. Indication: Fever. Comparison: Portable AP chest, 07/26/2024. Technique: Portable AP chest, 07/27/2024. Findings: A left IJ Port-A-Cath remains with its tip in the upper SVC. Since theprior study, the ill-defined left lower lung radiopacities have resolved.The heart is normal in size. Prior median sternotomy is seen. Generalizedosteoporosis is present. Degenerative changes and mild dextroscoliosis ofthe thoracic spine are noted. IMPRESSION: No acute or metastatic disease. ACTIONABLE ITEMS/RECOMMENDATIONS: None. I personally reviewed these image(s) along with the resident's/fellow'sinterpretations, certify that if a procedure was performed I wasphysically present, and agree with the final report. us Ramirez Rasheed MD IMG DIAGNOSTIC IMAGING ORDER EMELYN Final Result * (ABNORMAL) POC VBG+LAC (07/27/2024 8:39 PM CDT) Only the most recent of3 resultswithin the time period is included. POC VB pH. 7.411(H) 7.310 - 7.410 07/27/2024 8:44 PM CDT [facility] POC VB pCO2. 39.2(L) 41.0 - 51.0 mmHg 07/27/2024 8:44 PM CDT [facility] POC VB pO2. 35 mmHg 07/27/2024 8:44 PM CDT [facility] POC VB TCO2 26 24 - 29 mmol/L 07/27/2024 8:44 PM CDT [facility] POC VB Bicarb 24.9 23.0 - 28.0 mmol/L 07/27/2024 8:44 PM CDT [facility] POC VB Base Excess 0 -2 - 3 mmol/L 07/27/2024 8:44 PM CDT [facility] POC VB O2 Sat 67 % 07/27/2024 8:44 PM CDT [facility] POC VB LAC 0.69(L) 0.90 - 1.70 mmol/L 07/27/2024 8:44 PM CDT [facility] POC FiO2 07/27/2024 8:44 PM CDT [facility] POC Sample Type Venous 07/27/2024 8:44 PM CDT [facility] Blood 07/27/2024 8:39 PM CDT 07/27/2024 8:44 PM CDT Narrative [facility] - 07/27/2024 8:44 PM CDT Method description: The i-STAT is [...] measure analyte concentration by an electrochemical assay. us Poct Unknown Provider POCT ORDERABLES - DEVICE F inal Result [facility] Unless otherwise noted, all lab tests performed by: Division of Pathology and Laboratory Medicine [address] [place] [id number] * Respiratory Multiplex PCR Panel, Nasopharyngeal Swab (07/27/2024 8:38 PM CDT) Only the most recent of2 resultswithin the time period is included. Adenovirus Not Detected Not Detected 07/27/2024 10:39 PM CDT [facility] Coronavirus 229E Not Detected Not Detected 07/27/2024 10:39 PM CDT [facility] Coronavirus HKU1 Not Detected Not Detected 07/27/2024 10:39 PM CDT [facility] Coronavirus NL63 Not Detected Not Detected 07/27/2024 10:39 PM CDT [facility] Coronavirus OC43 Not Detected Not Detected 07/27/2024 10:39 PM CDT [facility] COVID-19 (SARS-CoV-2) Not Detected Not Detected 07/27/2024 10:39 PM CDT [facility] Human Metapneumovirus Not Detected Not Detected 07/27/2024 10:39 PM CDT [facility] Human Rhinovirus/Enterov irus Not Detected Not Detected 07/27/2024 10:39 PM CDT [facility] Influenza A Not Detected Not Detected 07/27/2024 10:39 PM CDT [facility] Influenza A H1 Not Detected Not Detected 07/27/2024 10:39 PM CDT [facility] Influenza A H1 2009 Not Detected Not Detected 07/27/2024 10:39 PM CDT [facility] Influenza A H3 Not Detected Not Detected 07/27/2024 10:39 PM CDT [facility] Influenza B Not Detected Not Detected 07/27/2024 10:39 PM CDT [facility] Parainfluenza Virus 1 Not Detected Not Detected 07/27/2024 10:39 PM CDT [facility] Parainfluenza Virus 2 Not Detected Not Detected 07/27/2024 10:39 PM CDT [facility] Parainfluenza Virus 3 Not Detected Not Detected 07/27/2024 10:39 PM CDT [facility] Parainfluenza Virus 4 Not Detected Not Detected 07/27/2024 10:39 PM CDT [facility] Respiratory Syncytial Virus Not Detected Not Detected 07/27/2024 10:39 PM CDT [facility] Bordetella parapertussis Not Detected Not Detected 07/27/2024 10:39 PM CDT [facility] Bordetella pertussis Not Detected Not Detected 07/27/2024 10:39 PM CDT [facility] Chlamydophila pneumoniae Not Detected Not Detected 07/27/2024 10:39 PM CDT [facility] Mycoplasma pneumoniae Not Detected Not Detected 07/27/2024 10:39 PM CDT [facility] Swab Nasopharyngeal structure / Unknown Non-blood Collection / Unknown 07/27/2024 8:38 PM CDT 07/27/2024 8:51 PM CDT Narrative [facility] - 07/27/2024 10:39 PM CDT The assay is a qualitative multiplex PCR assay to aid in the diagnosis of respiratory pathogens through simultaneous qualitative detection and identification of multiple pathogens directly from nasopharyngeal swabs (PAGE MAKEUP SYSTEM OPERATOR) from individuals with respiratory symptoms. Testing is performed using the [employer] Respiratory Panel 2.1 (RP2.1) on the [employer] System. The following organisms are identified using the [employer] RP 2.1 Panel: Adenovirus, Human Coronavirus (229E, [...] verified by the microbiology laboratory at the [facility] (CLIA Accreditation # [id number] and CAP Accreditation # [id number]). Results must be interpreted within the context of all relevant clinical and laboratory findings. Assay should not be used for monitoring response to therapy. Ramirez Rasheed MD MICROBIOLOGY - GENERAL ORDER EMELYN Final Result [facility] Unless otherwise noted, all lab tests performed by: Division of Pathology and Laboratory Medicine [address] [place] [id number] * Fractionated Bilirubin (07/27/2024 8:34 PM CDT) Only the most recent of2 resultswithin the time period is included. Bilirubin Direct <0.2 0.0 - 0.3 mg/dL 07/27/2024 9:53 PM CDT [facility] Comment:Indocyanine Green (I CG) may cause falsely elevated bilirubin results. Total and direct bilirubin must not be measured from samples containing indocyanine green. Bilirubin Indirect 2023 9:53 PM CDT [facility] Comment:Unable to calculate Indirect Bilirubin result due to some parameters are outside reportable range Bilirubin Total 0.3 0.0 - 1.2 mg/dL 07/27/2024 9:53 PM CDT [facility] Comment: Indocyanine Green (ICG) may cause falsely [...] g/L. Blood Venous blood specimen / Unknown Port / Unknown 07/27/2024 8:34 PM CDT 07/27/2024 8:43 PM CDT Ramirez Rasheed MD LAB BLOOD ORDERABLES Final R esult [facility] Unless otherwise noted, all lab tests performed by: Division of Pathology and Laboratory Medicine [address] [place] [id number] * Blood culture (07/27/2024 8:34 PM CDT) Only the most recent of5 resultswithin the time period is included. [facility] Blood Culture No Growth. 08/01/2024 10:01 PM CDT [facility] Blood Peripheral blood specimen / Unknown Port / Unknown 07/27/2024 8:34 PM CDT 07/27/2024 8:42 PM CDT Ramirez Rasheed MD MICROBIOLOGY - GENERAL ORDER EMELYN Final Result Performing Organization Address City/[facility]/ZIP Co de Phone Number [facility] Unless otherwise noted, all lab tests performed by: Division of Pathology and Laboratory Medicine [address] [place] [id number] * (ABNORMAL) ESR (07/27/2024 8:34 PM CDT) Only the most recent of2 resultswithin the time period is included. [facility] Sedimentation Rate 70(H) <=20 mm/hr 2023 10:12 PM CDT [facility] Blood Venous blood specimen / Unknown Port / Unknown 07/27/2024 8:34 PM CDT 07/27/2024 8:43 PM CDT Ramirez Rasheed MD LAB BLOOD ORDERABLES Final R esult Performing Organization Address City/[facility]/ZIP Co de Phone Number [facility] Unless otherwise noted, all lab tests performed by: Division of Pathology and Laboratory Medicine [address] [place] [id number] * CRP (C-reactive protein) (07/27/2024 8:34 PM CDT) Only the most recent of3 resultswithin the time period is included. [facility] CRP (C Reactive Protein) 67.37 mg/L 07/27/2024 10:05 PM CDT [facility] Blood Venous blood specimen / Unknown Port / Unknown 07/27/2024 8:34 PM CDT 07/27/2024 8:43 PM CDT Narrative [facility] - 07/27/2024 10:05 PM CDT Adult Reference ranges for HS CRP assay are as follows: Reference ranges when used to assess cardiac risk: <1.00 mg/L Low cardiovascular risk 1.00-3.00 mg/L Average cardiovascular risk >3.00 mg/L High cardiovascular risk Reference ranges when used to assess inflammatory responses: Less than or equal to 10.00 mg/L. us Ramirez Rasheed MD LAB BLOOD ORDERABLES Final R esult [facility] Unless otherwise noted, all lab tests performed by: Division of Pathology and Laboratory Medicine [address] [place] [id number] * FL Central Venous Place Exchange (07/26/2024 3:03 PM CDT) Narrative Systemgenerated, Documentation - 07/26/2024 3:03 PM CDT This procedure requires no interpretation from the radiologist. Jac Craig MD IMG FLUOROSCOPY ORDERABLES Fin al Result * XR Chest 1 View Post Implant [...] potentially actionable. Jac Craig MD IMG DIAGNOSTIC IMAGING ORDERAB LES Final Result * Vascular Access Bundle (07/26/2024 11:24 AM [...] ready for use and in acceptable position us Jac Craig MD IV THERAPY ORDERABLES Final Re sult * US Guided Central Line Placement Without Report (07/26/2024 8:46 AM CDT) Narrative Systemgenerated, Documentation - 07/26/2024 8:46 AM CDT This procedure requires no interpretation from the radiologist. Lili Boss APRN IMG NON DI ORDERABLES Final Result * Intraoperative Ultrasound - For Image Storage (without Report) (07/26/2024 8:31 AM CDT) Narrative Systemgenerated, Documentation - 07/26/2024 8:31 AM CDT This procedure requires no interpretation from the radiologist. us Jca Craig MD IMG NON DI ORDERABLES Final Re sult * (ABNORMAL) BUN (07/26/2024 7:58 AM CDT) BUN 31(H) 6 - 23 mg/dL 07/26/2024 8 :45 AM CDT [facility] Blood Venous blood specimen / Unknown CVC Line / Unknown 07/26/2024 7:58 AM CDT 07/26/2024 8:08 AM CDT Lili Boss APRN LAB BLOOD ORDERABLES Final R esult [facility] [address] [place] [address] * (ABNORMAL) Creatinine (07/26/2024 7:58 AM CDT) Creatinine 1.27(H) 0.67 - 1.17 mg/dL 07/26/2024 8:45 AM CDT [facility] eGFR 57(L) >=60 mL/min/1. 73 sq. m 07/26/2024 8:45 AM CDT [facility] Comment: The eGFRcr is calculated with [...] CDT Lili Boss APRN LAB BLOOD ORDERABLES Final R esult [facility] [address] [place] [address] * (ABNORMAL) Electrolyte Panel (07/26/2024 7:58 AM CDT) Sodium Level 135(L) 136 - 145 mmol/L 07/26/2024 8:45 AM CDT [facility] Potassium Level 4.5 3.4 - 4.5 mmol/L 07/26/2024 8:45 AM CDT [facility] Chloride 104 98 - 107 mmol/L 07/26/2024 8:45 AM CDT [facility] CO2 20(L) 22 - 29 mmol/L 07/26/2024 8:45 AM CDT [facility] Anion Gap 11 4 - 14 mmol/L 07/26/2024 8:45 AM CDT [facility] Blood Venous blood specimen / Unknown CVC Line / Unknown 07/26/2024 7:58 AM CDT 07/26/2024 8:08 AM CDT us Lili Boss TRANSITION MANAGER LAB BLOOD ORDERABLES Final R esult [address] [place] [address] * US RENAL (07/16/2024 11:00 AM CDT) [...] and potentially actionable. Al Quick IV, MD [facility] ORDERABLES Final Result * (ABNORMAL) POC Creatinine (07/16/2024 9:38 AM CDT) Only the most recent of2 resultswithin the time period is included. POC Creatinine 1.3 0.6 - 1.3 mg/dL 07/16/2024 9:40 AM [facility] Comment:Medications, especia lly hydroxyurea or supplements, such as ascorbate, can interfere with test results causing a falsely and significantly higher result than expected. If a problem is suspected with a patient's result, a sample should be sent to the laboratory for confirmatory testing. POC eGFR 56(L) >=60 mL/min/1.7 3 sq. m 07/16/2024 9:40 AM [facility] Comment: The eGFRcr is calculated with the [...] 9:38 AM CDT 07/16/2024 9:40 AM CDT [facility] [place] - 07/16/2024 9:40 AM CDT Method description: [...] measure analyte concentration by an electrochemical assay. us [facility] Kelli GRAJEDA POCT ORDERABLES - DEVICE Final R esult [place] [facility] [address] [facility], [facility] [address] [place] [address] * Type and Screen (07/08/2024 1:14 AM CDT) Only the most recent of7 resultswithin the time period is included. ABORh O POS 07/08/2024 1:30 AM CDT [facility] ABSC Negative 07/08/2024 1:30 AM CDT [facility] Clot Expiration 07/11/2024 23:59 07/08/2024 1:30 AM CDT [facility] Historical Record Check Complete 07/08/2024 1:30 AM CDT [facility] Blood Venous blood specimen / Unknown CVC Line / Unknown 07/08/2024 1:14 AM CDT 07/08/2024 1:19 AM CDT Roxanna Rodriguez APRN BLOOD BANK TEST ORDERABLE S Final Result [facility] [address] [place] [address] * (ABNORMAL) Smooth Muscle Antibody Titer (07/07/2024 10:21 PM CDT) Pathologist [facility] Smooth Muscle Antibody Titer Positive 1:40(A) Negative 07/10/2024 2:34 PM CDT [facility] Comment: ADDITIONAL INFORMATION This test was developed and its performance characteristics determined by [facility] in a manner consistent with CLIA requirements. This test has not been cleared or approved by the U.S. Food and Drug Administration. Test Performed by: [facility] [address] [place] [address] Intelligence Manager: Mau Thakkar Ph.D.; CLIA# [id number] Blood Peripheral blood specimen / Unknown Venipuncture / Unknown 07/07/2024 10:21 PM CDT 07/07/2024 10:36 PM CDT [facility] LAB BLOOD ORDERABLES Final Resu lt [facility] * Antinuclear Antibody (LIZBETH) HEp-2 Substrate, IgG (07/07/2024 10:21 PM CDT) LIZBETH HEp-2 Substrate <1:80 (Negativ e) <1:80 (Negativ e) 07/09/2024 9:03 PM CDT [facility] Comment: ADDITIONAL INFORMATION Method: Immunofluorescence using HEp-2 cellular substrate. Test Performed by: [facility] [address] [place] [address] Intelligence Manager: Mau Thakkar Ph.D.; CLIA# [id number] LIZBETH Titer DNR 07/09/2024 9:03 PM CDT [facility] LIZBETH Pattern DNR 07/09/2024 9:03 PM CDT [facility] LIZBETH Titer 2 DNR 07/09/2024 9:03 PM CDT [facility] LIZBETH Pattern 2 DNR 07/09/2024 9:03 PM CDT [facility] LIZBETH Cytoplasmic Pattern DNR 07/09/2024 9:03 PM CDT [facility] Lab Comment DNR 9:03 PM CDT [facility] Blood Peripheral blood specimen / Unknown Venipuncture / Unknown 07/07/2024 10:21 PM CDT 07/07/2024 10:36 PM CDT [facility] LAB BLOOD ORDERABLES Final Resu lt [facility] * (ABNORMAL) Hepatitis A Virus Panel (07/07/2024 10:21 PM CDT) Hepatitis A Antibodies Total Positive(A) Negative 07/09/2024 12:19 PM CDT [facility] ([facility]) Comment: The positive anti-HAV is consistent with recent or remote Hepatitis A infection or antibody response to HAV vaccination. False positive anti-HAV can occur. Hepatitis A Antibody IgM Negative Negative 07/09/2024 12:19 PM CDT [facility] ([facility]) Hepatitis A Panel Interpretation See Note 07/09/2024 12:19 PM CDT [facility] ([facility]) Comment: The pattern of positive total anti-HAV and negative IgM anti-HAV is consistent with two clinical situations: (1) recovered Hepatitis A infection, or (2) antibody response to HAV vaccination. Performed By: [facility] [address] [place] [id number] [employer] Equipment Supervisor: Ramirez Young MD, PhD CLIA Number: [id number] Blood Peripheral blood specimen / Unknown Venipuncture / Unknown 07/07/2024 10:21 PM CDT 07/07/2024 10:36 PM CDT [facility] LAB BLOOD ORDERABLES Final Resu lt [facility] RO[place]) * Hepatitis C Virus RNA Detect/Quant (07/07/2024 10:21 PM CDT) [facility] HepC RNA PCR [facility] Undetected Undetected IU/mL 07/10/2024 2:00 PM CDT [facility] Comment: Result in log IU/mL is Undetected. ADDITIONAL INFORMATION The quantification range of this assay is 15 to 100,000,000 IU/mL (1.18 log to 8.00 log IU/mL). Testing was performed using the bubba HCV test ([employer] Test Performed by: [address] [address] Intelligence Manager: Mau Thakkar Ph.D.; CLIA# [id number] Blood Peripheral blood specimen / Unknown Venipuncture / Unknown 07/07/2024 10:21 PM CDT 07/07/2024 10:36 PM CDT [facility] BLOOD ORDERABLES Final Resu Performing Organization Address City/[facility]/ZIP Co de Phone Number [facility] * HBV DNA Quant (07/07/2024 10:21 PM CDT) [facility] HBV DNA [facility] Undetected Undetected IU/mL 07/10/2024 2:19 PM CDT [facility] Comment: Result in log IU/mL is Undetected. ADDITIONAL INFORMATION The quantification range of this assay is 10 to 1,000,000,000 IU/mL (1.00 log to 9.00 log IU/mL). Testing was performed using the bubba HBV test ([employer] Test Performed by: [place] [address] Intelligence Manager: Mau Thakkar Ph.D.; CLIA# [id number] Blood Peripheral blood specimen / Unknown Venipuncture / Unknown 07/07/2024 10:21 PM CDT 07/07/2024 10:36 PM CDT [facility] BLOOD ORDERABLES Final [facility] Performing Organization Address [facility] de Phone Number [facility] * Hepatitis C Virus Antibody (07/07/2024 10:21 PM CDT) Only the most recent of2 resultswithin the time period is included. [facility] HCVAb. Non Reactive Non Reactive 07/08/2024 9:23 AM CDT [facility] Blood Peripheral blood specimen / Unknown Venipuncture / Unknown 07/07/2024 10:21 PM CDT 07/07/2024 10:36 PM CDT Narrative [facility] - 07/08/2024 9:23 AM CDT Antibody detection in the immunocompromised and immunosuppressed population may be delayed or absent entirely. Therefore serial testing, correlation with other clinical findings, and supplemental testing (if available) should be taken into consideration when interpreting the results. [facility] LAB BLOOD ORDERABLES Final Resu lt Performing Organization Address City/[facility]/ZIP Co de Phone Number [facility] Unless otherwise noted, all lab tests performed by: Division of Pathology and Laboratory Medicine [address] [place] [address] * Hepatitis B Total Ig Core Ab (SCREENING) (anti-HBc total Ig; HBcAb total Ig) (07/07/2024 10:21 PM CDT) Only the most recent of2 resultswithin the time period is included. [facility] HBcAb. Non Reactive Non Reactive 07/08/2024 9:22 AM CDT [facility] Blood Peripheral blood specimen / Unknown Venipuncture / Unknown 07/07/2024 10:21 PM CDT 07/07/2024 10:36 PM CDT [facility] LAB BLOOD ORDERABLES Final Resu lt Performing Organization Address [facility] Co de Phone Number [facility] Unless otherwise noted, all lab tests performed by: Division of Pathology and Laboratory Medicine [address] [place] [address] * Liver/Kidney Microsome Type 1 Ab (07/07/2024 10:21 PM CDT) Pathologist [facility] [place]/Kid Micro 1-Boland <5.0 <=20.0 (Negative) U 07/09/2024 7:00 PM CDT [facility] Comment: Test Performed by: [facility] - [address] [address] Intelligence Manager: Mau Thakkar Ph.D.; CLIA# [id number] Blood Peripheral blood specimen / Unknown Venipuncture / Unknown 07/07/2024 10:21 PM CDT 07/07/2024 10:36 PM CDT [facility] LAB BLOOD ORDERABLES Final Resu lt Performing Organization Address City/[facility]/ZIP Co de Phone Number [facility] * (ABNORMAL) Alpha 1 Antritrypsin (07/07/2024 10:21 PM CDT) [facility] A-1-AT-Boland 222(H) 100 - 190 mg/dL 07/09/2024 1:23 PM CDT [facility] Comment: Test Performed by: [place] [address] Intelligence Manager: Mau Thakkar Ph.D.; CLIA# [id number] Blood Peripheral blood specimen / Unknown Venipuncture / Unknown 07/07/2024 10:21 PM CDT 07/07/2024 10:36 PM CDT [facility] LAB BLOOD ORDERABLES Final Resu lt Performing Organization Address [facility] Co de Phone Number [facility] * Mitochondrial Ab M2 (07/07/2024 10:21 PM CDT) [facility] AMA Ab Screen-Boland <0.1 <0.1 (Negative) U 07/09/2024 9:03 PM CDT [facility] Comment: Test Performed by: [place] [address] Intelligence Manager: Mau Thakkar Ph.D.; CLIA# [id number] Blood Peripheral blood specimen / Unknown Venipuncture / Unknown 07/07/2024 10:21 PM CDT 07/07/2024 10:36 PM CDT [facility] LAB BLOOD ORDERABLES Final Resu lt Performing Organization Address City/[facility]/ZIP Co de Phone Number [facility] * (ABNORMAL) Ceruloplasmin Level (07/07/2024 10:21 PM CDT) [facility] Ceruloplasmin-May o 36.6(H) 19.0 - 31.0 mg/dL 07/09/2024 2:28 PM CDT [facility] Comment: Test Performed by: [facility] [address] [place] [address] Intelligence Manager: Mau Thakkar Ph.D.; CLIA# [id number] Blood Peripheral blood specimen / Unknown Venipuncture / Unknown 07/07/2024 10:21 PM CDT 07/07/2024 10:36 PM CDT [facility] BLOOD ORDERABLES Final Resu Performing Organization Address [facility] de Phone Number [facility] * Hepatitis B IgM Core Ab (CONFIRM ACUTE INFECTION ONLY) (anti-HBc IgM; HBcAb IgM) (07/07/2024 10:21 PM CDT) [facility] Hep B Core IgM-[place] Negative Negative 07/09/2024 2:09 PM CDT [facility] Comment: Consumption of high-dose biotin supplement within 12 hours of blood collection for this test can cause false-negative results. Test Performed by: [facility] [address] [place] [address] Intelligence Manager: Mau Thakkar Ph.D.; CLIA# [id number] Blood Peripheral blood specimen / Unknown Venipuncture / Unknown 07/07/2024 10:21 PM CDT 07/07/2024 10:36 PM CDT [facility] BLOOD ORDERABLES Final [facility] Performing Organization Address [facility] de Phone Number [facility] * (ABNORMAL) Smooth Muscle Ab (07/07/2024 10:21 PM CDT) Pathologist [facility] SMA Screen-[place] Positive( A) Negative 07/10/2024 10:39 AM CDT [facility] Comment: Positive: Reflex to titer will be performed ADDITIONAL INFORMATION This test was developed and its performance characteristics determined by [facility] in a manner consistent with CLIA requirements. This test has not been cleared or approved by the U.S. Food and Drug Administration. Test Performed by: [facility] [address] [place] [address] Intelligence Manager: Mau Thakkar Ph.D.; CLIA# [id number] Blood Peripheral blood specimen / Unknown Venipuncture / Unknown 07/07/2024 10:21 PM CDT 07/07/2024 10:36 PM CDT [facility] LAB BLOOD ORDERABLES Final Resu lt [facility] * Hepatitis B Surface Antibody (07/07/2024 10:21 PM CDT) Only the most recent of2 resultswithin the time period is included. HBsAb Non Reactive 07/08/2024 9:23 AM CDT [facility] Blood Peripheral blood specimen / Unknown Venipuncture / Unknown 07/07/2024 10:21 PM CDT 07/07/2024 10:36 PM CDT Narrative [facility] - 07/08/2024 9:23 AM CDT Vaccinated individual: Reactive Unvaccinated individual: Non-Reactive [facility] BLOOD ORDERABLES Final Resu lt [facility] Unless otherwise noted, all lab tests performed by: Division of Pathology and Laboratory Medicine [address] [place] [id number] * Hepatitis B Surface Ag (07/07/2024 10:21 PM CDT) Only the most recent of2 resultswithin the time period is included. HBsAg. Non Reactive Non Reactive 07/08/2024 9:22 AM CDT [facility] Blood Peripheral blood specimen / Unknown Venipuncture / Unknown 07/07/2024 10:21 PM CDT 07/07/2024 10:36 PM CDT [facility] LAB BLOOD ORDERABLES Final Resu lt [facility] Unless otherwise noted, all lab tests performed by: Division of Pathology and Laboratory Medicine [address] [place] [id number] * Prothrombin Time with INR (07/07/2024 10:21 PM CDT) Only the most recent of4 resultswithin the time period is included. Pathologist [facility] Prothrombin Time 12.8 11.9 - 14.5 second(s) 07/07/2024 11:42 PM CDT [facility] International Normalization Ratio 0.97 0.87 - 1.12 07/07/2024 11:42 PM CDT [facility] Blood Peripheral blood specimen / Unknown Venipuncture / Unknown 07/07/2024 10:21 PM CDT 07/07/2024 10:36 PM CDT [facility] DO LAB BLOOD ORDERABLES Final Resu lt Performing Organization Address [facility] Co de Phone Number [facility] Unless otherwise noted, all lab tests performed by: Division of Pathology and Laboratory Medicine [address] [place] [address] * (ABNORMAL) Retic Auto (07/07/2024 10:21 PM CDT) Only the most recent of2 resultswithin the time period is included. Pathologist [facility] Reticulocyte Count Automated 1.94 0.92 - 2.71 % 07/07/2024 10:48 PM CDT [facility] RETHE 32.9 29.9 - 38.4 pg 07/07/2024 10:48 PM CDT [facility] IRF 31.9(H) 4.4 - 22.0 % 07/07/2024 10:48 PM CDT [facility] Retic Absolute 0.0580 0.04 - 0.13 M/uL 07/07/2024 10:48 PM CDT [facility] Blood Peripheral blood specimen / Unknown Venipuncture / Unknown 07/07/2024 10:21 PM CDT 07/07/2024 10:36 PM CDT [facility] LAB BLOOD ORDERABLES Final Resu lt [facility] Unless otherwise noted, all lab tests performed by: Division of Pathology and Laboratory Medicine [address] [place] [address] * (ABNORMAL) Haptoglobin (07/07/2024 10:21 PM CDT) Haptoglobin 263(H) 32 - 197 mg/dL 07/08/2024 11:29 AM CDT [facility] Blood Peripheral blood specimen / Unknown Venipuncture / Unknown 07/07/2024 10:21 PM CDT 07/07/2024 10:36 PM CDT [facility] LAB BLOOD ORDERABLES Final Resu lt Performing Organization Address City/[facility]/ZIP Co de Phone Number [facility] Unless otherwise noted, all lab tests performed by: Division of Pathology and Laboratory Medicine [address] [place] [address] * IgM (07/07/2024 10:21 PM CDT) Pathologist [facility] IgM 36 35 - 242 mg/dL 07/08/2024 11:29 AM CDT [facility] Blood Peripheral blood specimen / Unknown Venipuncture / Unknown 07/07/2024 10:21 PM CDT 07/07/2024 10:36 PM CDT [facility] LAB BLOOD ORDERABLES Final Resu lt [facility] Unless otherwise noted, all lab tests performed by: Division of Pathology and Laboratory Medicine [address] [place] [id number] * (ABNORMAL) IgG (07/07/2024 10:21 PM CDT) IgG 1,628(H) 610 - 1,616 mg/dL 07/08/2024 11:29 AM CDT [facility] Blood Peripheral blood specimen / Unknown Venipuncture / Unknown 07/07/2024 10:21 PM CDT 07/07/2024 10:36 PM CDT [facility] Jeremias DO LAB BLOOD ORDERABLES Final Resu lt [facility] Unless otherwise noted, all lab tests performed by: Division of Pathology and Laboratory Medicine [address] [place] [id number] * Gastrointestinal Multiplex PCR Panel (07/06/2024 8:40 AM CDT) Campylobacter Not Detected Not Detected 07/06/2024 1:06 PM CDT [facility] Plesiomonas shigelloides Not Detected Not Detected 07/06/2024 1:06 PM CDT [facility] Salmonella Not Detected Not Detected 07/06/2024 1:06 PM CDT [facility] Vibrio Not Detected Not Detected 07/06/2024 1:06 PM CDT [facility] Vibrio cholerae Not Detected Not Detected 07/06/2024 1:06 PM CDT [facility] Yersinia enterocolitica Not Detected Not Detected 07/06/2024 1:06 PM CDT [facility] Enteroaggregative E. coli (EAEC) Not Detected Not Detected 07/06/2024 1:06 PM CDT [facility] Enteropathogenic E. coli (EPEC) Not Detected Not Detected 07/06/2024 1:06 PM CDT [facility] Enterotoxigenic E. coli (ETEC) LT/ST Not Detected Not Detected 07/06/2024 1:06 PM CDT [facility] Shiga-like toxin-producing E. coli (STEC) Stx1/Stx2 Not Detected Not Detected 07/06/2024 1:06 PM CDT [facility] E. coli O157 N/A Not Detected 07/06/2024 1:06 PM CDT [facility] Shigella/Enteroinvas paul E. coli (EIEC) Not Detected Not Detected 07/06/2024 1:06 PM CDT [facility] Cryptosporidium Not Detected Not Detected 07/06/2024 1:06 PM CDT [facility] Cyclospora cayetanensis Not Detected Not Detected 07/06/2024 1:06 PM CDT [facility] Entamoeba histolytica Not Detected Not Detected 07/06/2024 1:06 PM CDT [facility] Giardia lamblia Not Detected Not Detected 07/06/2024 1:06 PM CDT [facility] Adenovirus F40/41 Not Detected Not Detected 07/06/2024 1:06 PM CDT [facility] Astrovirus Not Detected Not Detected 07/06/2024 1:06 PM CDT [facility] Norovirus GI/GII Not Detected Not Detected 07/06/2024 1:06 PM CDT [facility] Rotavirus A Not Detected Not Detected 07/06/2024 1:06 PM CDT [facility] Sapovirus (I, II, IV, V) Not Detected Not Detected 07/06/2024 1:06 PM CDT [facility] C. difficile Refer to separate C. difficile DNA Detection assay for results. 07/06/2024 1:06 PM CDT [facility] Stool Rectum structure / Unknown Non-blood Collection / Unknown 07/06/2024 8:40 AM CDT 07/06/2024 9:18 AM CDT [facility] - 07/06/2024 1:06 PM CDT The assay is a qualitative multiplex PCR assay to aid in the diagnosis of gastrointestinal infection through simultaneous qualitative detection and identification of multiple GI pathogens in diarrheal specimens collected in [employer] transport media obtained from individuals suspected of gastrointestinal infections. Testing is performed using the [employer] Gastrointestinal (GI) Panel on the [employer]. The following organisms are identified using the [employer] GI Panel: Campylobacter spp., Plesiomonas shigelloides, Salmonella [...] verified by the microbiology laboratory at the [facility]. Results must be interpreted within the context of all relevant clinical and laboratory findings. Assay should not be used for monitoring response to therapy. [facility] MICROBIOLOGY - GENERAL ORDERABL ES Final Result [facility] Unless otherwise noted, all lab tests performed by: Division of Pathology and Laboratory Medicine [address] [place] [id number] * (ABNORMAL) Fecal Occult Blood, Stool (07/06/2024 8:40 AM CDT) Only the most recent of2 resultswithin the time period is included. Fecal Occult Blood Positive( A) Negative 07/06/2024 12:41 PM CDT [facility] Comment:A positive result in dicates the presence of hemoglobin in the submitted fecal specimen. A positive result should not be considered conclusive evidence of the presence of GI bleeding or pathology. Recommend clinical correlation and further studies to establish the source of bleeding. Stool Rectum structure / Unknown Non-blood Collection / Unknown 07/06/2024 8:40 AM CDT 07/06/2024 9:18 AM CDT Narrative [facility] - 07/06/2024 12:41 PM CDT Fecal occult blood testing is performed using a qualitative immunoassay to specifically detect the presence of hemoglobin in human feces. The fecal immunochemical test (FIT) is performed on the [employer] Micro 80 iFOB from [employer]. This is an FDA-approved assay and its performance characteristics were verified by the microbiology laboratory at the [facility]. Results must be interpreted within the context of all relevant clinical and laboratory findings. [facility] DO MICROBIOLOGY - GENERAL ORDERABL ES Final Result [facility] Unless otherwise noted, all lab tests performed by: Division of Pathology and Laboratory Medicine [facility] [place] [address] * (ABNORMAL) C. difficile DNA Detection (07/06/2024 8:40 AM CDT) C. difficile - DNA Positive(A) Negative 07/06/2024 12:26 PM CDT [facility] C. difficile - EIA Negative Negative 07/06/2024 12:26 PM CDT [facility] C. difficile - Interpretation C. difficile EIA [...] remains a possibility. 07/06/2024 12:26 PM CDT [facility] Stool Rectum structure / Unknown Non-blood Collection / Unknown 07/06/2024 8:40 AM CDT 07/06/2024 9:18 AM CDT Narrative [facility] - 07/06/2024 12:26 PM CDT Qualitative detection of C. difficile DNA performed using helicase-dependent amplification of a conserved region of a pathogenicity locus (PaLoc) in toxigenic C. difficile strains. It is an FDA-approved assay performed on the [employer] Instrument from [employer] and is intended for use as an [...] rapid immunoassay using the FDA-approved ImmunoCard by [employer]. Patients positive for BOTH C. difficile DNA [...] verified by the microbiology laboratory at the [facility]. Results must be interpreted within the context of all relevant clinical and laboratory findings. us Christine Mcdowell DO MICROBIOLOGY - GENERAL ORDERABL ES Final Result Performing Organization Address City/[facility] Co de Phone Number [facility] Unless otherwise noted, all lab tests performed by: Division of Pathology and Laboratory Medicine [address] [place] [id number] * Folate Level (07/06/2024 2:23 AM CDT) Only the most recent of2 resultswithin the time period is included. Folate Level 5.4 4.8 - 24.2 ng/mL 07/06/2024 3:35 AM CDT [facility] Is patient fasting? Yes 07/06/2024 3:35 AM CDT [facility] Blood Venous blood specimen / Unknown Venipuncture / Unknown 07/06/2024 2:23 AM CDT 07/06/2024 2:42 AM CDT Narrative [facility] - 07/06/2024 3:35 AM CDT Reference range established based on adult population. us Yadiel Gomez MD LAB BLOOD ORDERABLES Final Result [facility] Unless otherwise noted, all lab tests performed by: Division of Pathology and Laboratory Medicine [address] [place] [id number] * Vitamin B12 Level (07/06/2024 2:23 AM CDT) Only the most recent of2 resultswithin the time period is included. Vitamin B12 Level 498 232 - 1,245 pg/mL 07/06/2024 3:36 AM CDT [facility] Is patient fasting? Yes 07/06/2024 3:36 AM CDT [facility] Blood Venous blood specimen / Unknown CVC Line / Unknown 07/06/2024 2:23 AM CDT 07/06/2024 2:42 AM CDT Narrative [facility] - 07/06/2024 3:36 AM CDT Reference range established based on adult population. Yadiel Gomez MD LAB BLOOD ORDERABLES Final Result [facility] Unless otherwise noted, all lab tests performed by: Division of Pathology and Laboratory Medicine [address] [place] [id number] * Transfuse RBC:Transfusion Date: 07/05/2024 (07/05/2024 4:59 PM CDT) Only the most recent of9 resultswithin the time period is included. Yadiel Gomez MD BLOOD TRANSFUSION ORD ERABLES Final Result * Prepare RBC:p4, 1 Units (07/05/2024 11:52 AM CDT) Only the most recent of7 resultswithin the time period is included. Product Code [id number] [facility] - TRANSFUSION SERVICES Product Code Text Red Blood Cells [facility] - TRANSFUSION SERVICES QTY Ordered 1 [facility] - TRANSFUSION SERVICES Dispense Status Transfused [facility] - TRANSFUSION SERVICES Unit Expiration [id number] [facility] - TRANSFUSION SERVICES Unit Number [id number] [facility] - TRANSFUSION SERVICES Unit Blood Type O+ [facility] - TRANSFUSION SERVICES Bag Volume 277 [facility] - TRANSFUSION SERVICES XM Interpretation Compatible U T [facility] - TRANSFUSION SERVICES Unit Blood Type Barcode 5100 [facility] - TRANSFUSION SERVICES RBC Product Status 1 RBC approved [facility] - TRANSFUSION SERVICES Comment:Order Form 03 when r rosario for product issue. PRBC Product Ready For Garland Maker B2 Blood Bank [facility] - TRANSFUSION SERVICES Blood Result Barbie Gomez MD BLOOD BANK PRODUCT OR DERABLES Final Result [facility] - TRANSFUSION SERVICES [facility] Transfusion Services [address] [place] [address] [phone] [place] [address] * (ABNORMAL) Hemoglobin (07/05/2024 9:19 AM CDT) Hemoglobin 7.0(L) 13.3 - 17.4 g/dL 07/05/2024 9:49 AM CDT [facility] Blood Peripheral blood specimen / Unknown Venipuncture / Unknown 07/05/2024 9:19 AM CDT 07/05/2024 9:27 AM CDT Result Barbie Gomez MD LAB BLOOD ORDERABLES Final Result [facility] Unless otherwise noted, all lab tests performed by: Division of Pathology and Laboratory Medicine [address] [place] [id number] * (ABNORMAL) Transferrin with TIBC (07/05/2024 1:49 AM CDT) Only the most recent of3 resultswithin the time period is included. Transferrin 176(L) 200 - 360 mg/dL 07/05/2024 12:24 PM CDT [facility] Total Iron Binding Capacity 246(L) 250 - 450 mcg/dL 07/05/2024 12:24 PM CDT [facility] Blood Peripheral blood specimen / Unknown Venipuncture / Unknown 07/05/2024 1:49 AM CDT 07/05/2024 1:56 AM CDT us Yadiel Gomez MD LAB BLOOD ORDERABLES Final Result Performing Organization Address City/[facility] de Phone Number [facility] Unless otherwise noted, all lab tests performed by: Division of Pathology and Laboratory Medicine [address] [place] [id number] * (ABNORMAL) Iron Level (07/05/2024 1:49 AM CDT) Only the most recent of3 resultswithin the time period is included. Iron Level 27(L) 59 - 158 mcg/dL 07/05/2024 12:24 PM CDT [facility] Is patient fasting? 07/05/2024 12:24 PM CDT [facility] Blood Peripheral blood specimen / Unknown Venipuncture / Unknown 07/05/2024 1:49 AM CDT 07/05/2024 1:56 AM CDT us Yadiel Gomez MD LAB BLOOD ORDERABLES Final Result Performing Organization Address [facility] de Phone Number [facility] Unless otherwise noted, all lab tests performed by: Division of Pathology and Laboratory Medicine [address] [place] [id number] * (ABNORMAL) Ferritin Level (07/05/2024 1:49 AM CDT) Only the most recent of3 resultswithin the time period is included. Ferritin Level 670(H) 30 - 400 ng/mL 07/05/2024 12:31 PM CDT [facility] Blood Peripheral blood specimen / Unknown Venipuncture / Unknown 07/05/2024 1:49 AM CDT 07/05/2024 1:56 AM CDT Narrative [facility] - 07/05/2024 12:31 PM CDT Reference range established for age 20 - 60 years Result Barbie Gomez MD LAB BLOOD ORDERABLES Final Result Performing Organization Address City/[facility]/ZIP Co de Phone Number [facility] Unless otherwise noted, all lab tests performed by: Division of Pathology and Laboratory Medicine [address] [place] [id number] * OSI CT CHEST ABDOMEN PELVIS (07/04/2024 9:18 AM CDT) Narrative Systemgenerated, Documentation - 07/05/2024 9:18 AM CDT Study acquired at another institution. For comparison only. No Landon originated interpretation requested or available. Nery Rasheed MD IM OUTSIDE IMAGE ORDERABLES F inal Result * OSI Chest (07/04/2024 9:17 AM CDT) Narrative Systemgenerated, Documentation - 07/05/2024 9:17 AM CDT Study acquired at another institution. For comparison only. No MD Navarrete originated interpretation requested or available. Nery Rasheed MD IM OUTSIDE IMAGE ORDERABLES F inal Result * FL Portable Fluoroscopy (C-Arm) (CPT 41198) (06/19/2024 11:57 AM CDT) Narrative Systemgenerated, Documentation - 06/19/2024 11:57 AM CDT This procedure requires no interpretation from the radiologist. Al Quick IV, MD IMG FLUOROSCOPY ORDERABL ES Final Result * Pathology Surgical Interpretation (06/19/2024 8:42 AM CDT) Submitted Clinical History Calculus of kidney and ureter [N20.2] 06/22/2024 6:17 AM CDT [facility] Diagnosis A: Stone(s), right ureter, gross only, right ureteral stone for stone analysis: Calculi. Specimen submitted for chemical analysis. PT 06/22/2024 6:17 AM CDT [facility] Gross Description A: Stone(s), right ureter, gross only, right ureteral stone for stone analysis---or#37: Consists of multiple fragments of luque-brown, indurated calculi (0.3 x 0.3 x 0.2 cm to 0.5 x 0.5 x 0.4 cm). The specimen is sent for stone analysis. Gross examination only. EF 06/22/2024 6:17 AM CDT [facility] Biomarker Block(s) Tumor block: N/A Normal block: N/A 06/22/2024 6:17 AM CDT [facility] Disclaimer "Some tests reported here may have been developed and performance characteristics determined by [facility] Pathology and Laboratory Medicine. These tests have not been specifically cleared or approved by the U.S. Food and Drug Administration. If applicable, controls were reviewed and showed appropriate reactivity." 06/22/2024 6:17 AM CDT [facility] Stone (Stone(s), Right Ureter, Gross Only) 06/19/2024 8:42 AM CDT 06/21/2024 7:38 AM CDT us Al Quick IV, MD LAB PATHOLOGY ORDERABLES Final Result Performing Organization Address City/State/[facility] Co de Phone Number [facility] [address] [place] [phone], [place] * Stone Analysis Kidney (06/19/2024 8:42 AM CDT) Stn Anl Kidney DNR 07/01/2024 2:00 PM CDT [facility] Stn Anl Kidney Source Right Ureter 07/01/2024 2:00 PM CDT [facility] Stn Anl Kidney Interp SEE COMMENTS 07/01/2024 2:00 PM CDT [facility] Comment:RESULT: 100% Calcium oxalate monohydrate. Result Comment SEE COMMENTS 07/01/2024 2:00 PM CDT [facility] Comment: For stones containing calcium oxalate, calcium phosphate, and/or uric acid, a 24 hr urinary supersaturation test may help detect underlying risk factors for this type of stone formation and provide guidance for a stone prevention strategy. ADDITIONAL INFORMATION This test was developed and its performance characteristics determined by [facility] in a manner consistent with CLIA requirements. This test has not been cleared or approved by the U.S. Food and Drug Administration. Test Performed by: [facility] [address] [place] [address] Intelligence Manager: Mau Thakkar Ph.D.; CLIA# [id number] Other (Renal Stone) Non-blood Collection / Unknown 06/19/2024 8:42 AM CDT 06/21/2024 10:24 AM CDT us Al Quick IV, MD URINE ORDERABLES Final R esult [facility] * MDA CP PRMYEF (06/15/2024 7:31 AM CDT) Only the most recent of14 resultswithin the time period is included. Blood Venous blood specimen / Unknown CVC Line / Unknown 06/15/2024 7:31 AM CDT 06/15/2024 7:40 AM CDT us Marbella GRAJEDA LAB BLOOD ORDERABLES Final Resul t [facility] [address] [facility], [facility] [address] [place] [address] * Implanted Port Removal (06/07/2024 10:15 AM CDT) Anatomical Region Laterality Modality Ultrasound Narrative 06/07/2024 10:18 AM CDT Title of Procedure: Port Removal Date/Time: 06/07/24 Proceduralist Type: Advanced Practice Provider Proceduralist: Kathie Mina APRN,PATRICIA Ordered By: NICCI Pemberton Procedure Location: Outpatient Procedure Methods Specialist Engineer present: no Accredited Pharmacy Technician: no 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 Informed consent obtained prior to procedure, the risks, benefits, and alternative discussed with patient/designated dental sales representative. Pre-procedure the patient was VAP pre-procedure [...] completely dried prior to procedure according to first calender worker guidelines. Maximum sterile barriers were used- sterile [...] post-op care. Comments Scrub: Elvia Blount MA Agricultural Scientist: David Simmons RN us [facility] Kelli JO VAP ORDERABLES Final Result * X-ray Chest 1 View Portable (06/07/2024 [...] and potentially actionable. Sia GRAJEDA IMG DIAGNOSTIC IMAGING ORDERABLE S Final Result * Insert Vascular Access Device PICC (06/07/2024 8:38 AM CDT) Anatomical Region Laterality Modality Ultrasound Narrative 06/07/2024 8:40 AM CDT Date of Procedure: 06/07/24 Title of Procedure: Percutaneous Image-Guided PICC Insertion Proceduralist: Clyde Benavidez RN Ordered By: NICCI Pemberton Procedure Location: Outpatient Procedure Methods Specialist Engineer Present: Yes David Simmons RN Pre Procedure [...] risks, benefits, and alternative dicussed with patient/designated dental sales representative. Time out: universal protocol time out [...] Forearm circumference:27 cm Additional Comments: None Marbella GRAJEDA IMG VAP ORDERABLES Final Result * Tip Verification Central Vascular Access Device [...] by: Clyde benavidez RN Device placement location: [facility] Catheter Type: PICC Catheter lumen: Double lumen Vein location: Basilic Laterality: Right Tip Verification Properties Diagnostic image available: Chest xray Written diagnostic report available: Yes Tip location per report: Superior vena cava (per radiologist report, Tru Cobb MD) Tip in good position and cleared for infusion Marbella GRAJEDA IV THERAPY ORDERABLES Final Resu lt * (ABNORMAL) [facility] CP PLATELET COUNT (06/07/2024 6:45 AM CDT) Platelet 117(L) 160 - 397 K/uL 06/07/2024 6:55 AM CDT [facility] Mean Platelet Volume 9.2 9.1 - 12.6 fL 06/07/2024 6:55 AM CDT [facility] Blood Peripheral blood specimen / Unknown Venipuncture / Unknown 06/07/2024 6:45 AM CDT 06/07/2024 6:47 AM CDT Marbella GRAJEDA LAB BLOOD ORDERABLES Final Resul t [facility] Unless otherwise noted, all lab tests performed by: Division of Pathology and Laboratory Medicine [address] [place] [id number] * (ABNORMAL) Hemogram (05/28/2024 5:38 PM CDT) Only the most recent of3 resultswithin the time period is included. White Blood Cell 6.8 4.1 - 10.5 K/uL 05/28/2024 6:38 PM CDT [facility] Red Blood Cell 3.41(L) 4.30 - 6.04 M/uL 05/28/2024 6:38 PM CDT [facility] Hemoglobin 10.1(L) 13.3 - 17.4 g/dL 05/28/2024 6:38 PM CDT [facility] Hematocrit 31.1(L) 39.5 - 51.8 % 05/28/2024 6:38 PM CDT [facility] Mean Cell Volume 91 82 - 99 fL 05/28/2024 6:38 PM CDT [facility] Mean Cell Hemoglobin 29.6 26.6 - 33.2 pg 05/28/2024 6:38 PM CDT [facility] Mean Cell Hemoglobin Concentration 32.5 31.1 - 35.2 g/dL 05/28/2024 6:38 PM CDT [facility] RDW-SD 72.4(H) 37.5 - 49.7 fL 05/28/2024 6:38 PM CDT [facility] Red Cell Diameter Width 22.2(H) 11.6 - 15.5 % 05/28/2024 6:38 PM CDT [facility] Platelet 237 160 - 397 K/uL 05/28/2024 6:38 PM CDT [facility] Mean Platelet Volume 10.1 9.1 - 12.6 fL 05/28/2024 6:38 PM CDT [facility] INRBC 0.0 0.0 - 0.1 /100 WBC 05/28/2024 6:38 PM CDT [facility] Comment: The INRBC (instrument NRBC) value reflects [...] CDT Graeme Suarez MD LAB BLOOD ORDERABLES Final Resu lt Performing Organization Address City/[facility]/ZIP Co de Phone Number [facility] Unless otherwise noted, all lab tests performed by: Division of Pathology and Laboratory Medicine [address] [place] [phone] * Folate, RBC (05/26/2024 5:34 AM CDT) [facility] Folate, RBC 814 >280 ng/mL RBC 05/27/2024 5:10 PM CDT [facility]) Blood Peripheral blood specimen / Unknown Venipuncture / Unknown 05/26/2024 5:34 AM CDT 05/26/2024 6:12 AM CDT Narrative [facility]) - 05/27/2024 5:10 PM CDT Performing Organization Information: [facility] [address] [place] [phone] Safia Bell Graeme Suarez MD LAB BLOOD ORDERABLES Final Resu lt [facility]) * Methylmalonic Acid Quant, Serum (05/26/2024 5:34 AM CDT) [facility] MMA Quant-Auburn 0.25 <=0.40 nmol/mL 05/30/2024 9:20 AM CDT [facility] Comment: ADDITIONAL INFORMATION This test was developed and its performance characteristics determined by [facility] in a manner consistent with CLIA requirements. This test has not been cleared or approved by the U.S. Food and Drug Administration. Test Performed by: [facility] [place] [address] Intelligence Manager: Mau Thakkar Ph.D.; CLIA# [id number] Blood Peripheral blood specimen / Unknown Venipuncture / Unknown 05/26/2024 5:34 AM CDT 05/26/2024 6:12 AM CDT Graeme Suarez MD LAB BLOOD ORDERABLES Final Resu lt Performing Organization Address [facility] de Phone Number [facility] * (ABNORMAL) Copper Level (05/26/2024 5:34 AM CDT) Pathologist [facility] Copper, S 162(H) 73 - 129 mcg/dL 05/28/2024 11:15 AM CDT [facility] Comment: ADDITIONAL INFORMATION This test was developed and its performance characteristics determined by [facility] in a manner consistent with CLIA requirements. This test has not been cleared or approved by the U.S. Food and Drug Administration. Test Performed by: [facility] [address] [place] [address] Intelligence Manager: Mau Thakkar Ph.D.; CLIA# [id number] Blood Peripheral blood specimen / Unknown Venipuncture / Unknown 05/26/2024 5:34 AM CDT 05/26/2024 6:12 AM CDT Graeme Suarez MD LAB BLOOD ORDERABLES Final Resu lt Performing Organization Address [facility] de Phone Number [facility] * Vitamin D 25OH (05/26/2024 5:34 AM CDT) Vitamin D 25 OH 49 30 - 100 ng/mL 05/26/2024 7:04 AM CDT [facility] Blood Peripheral blood specimen / Unknown Venipuncture / Unknown 05/26/2024 5:34 AM CDT 05/26/2024 6:12 AM CDT Narrative [facility] - 05/26/2024 7:04 AM CDT Reference Range: Deficiency: <=20 ng/mL Insufficiency: 21-29 ng/mL Sufficiency: 30-100 ng/mL Potential toxicity: >100 ng/mL Graeme Suarez MD LAB BLOOD ORDERABLES Final Resu lt [facility] Unless otherwise noted, all lab tests performed by: Division of Pathology and Laboratory Medicine [address] [place] [phone] * (ABNORMAL) Vitamin E Level (05/26/2024 5:34 AM CDT) A-Tocopherol, Vit E-Auburn 19.6(H) 5.5 - 17.0 mg/L 05/30/2024 3:16 PM CDT [facility] Comment: ADDITIONAL INFORMATION This test was developed and its performance characteristics determined by [facility] in a manner consistent with CLIA requirements. This test has not been cleared or approved by the U.S. Food and Drug Administration. Test Performed by: [facility] - [address] [address] Intelligence Manager: Mau Thakkar Ph.D.; CLIA# [id number] Blood Peripheral blood specimen / Unknown Venipuncture / Unknown 05/26/2024 5:34 AM CDT 05/26/2024 6:12 AM CDT Graeme Suarez MD LAB BLOOD ORDERABLES Final Resu lt Performing Organization Address [facility] Co de Phone Number [facility]IR[facility] SERRANO * Vitamin B1 Level (05/26/2024 5:34 AM CDT) Pathologist [facility] Thiamin( Bld)-Boland 103 70 - 180 nmol/L 05/31/2024 8:43 AM CDT [facility] Comment: ADDITIONAL INFORMATION This test was developed and its performance characteristics determined by [facility] in a manner consistent with CLIA requirements. This test has not been cleared or approved by the U.S. Food and Drug Administration. Test Performed by: [facility] [place] [address] Intelligence Manager: Mau Thakkar Ph.D.; CLIA# [id number] Blood Peripheral blood specimen / Unknown Venipuncture / Unknown 05/26/2024 5:34 AM CDT 05/26/2024 6:12 AM CDT Graeme Suarez MD LAB BLOOD ORDERABLES Final [facility] Performing Organization Address [facility] de Phone Number [facility] * (ABNORMAL) Vitamin B6 Level (05/26/2024 5:34 AM CDT) Pathologist [facility] PALP-Boland 3(L) 5 - 50 mcg/L 05/31/2024 4:02 AM CDT [facility] Comment: ADDITIONAL INFORMATION This test was developed and its performance characteristics determined by [facility] in a manner consistent with CLIA requirements. This test has not been cleared or approved by the U.S. Food and Drug Administration. Pyridoxic Acid (PA)-Boland 6 3 - 30 mcg/L 05/31/2024 4:02 AM CDT [facility] Comment: ADDITIONAL INFORMATION This test was developed and its performance characteristics determined by [facility] in a manner consistent with CLIA requirements. This test has not been cleared or approved by the U.S. Food and Drug Administration. Test Performed by: [facility] [address] [place] [address] Intelligence Manager: Mau Thakkar Ph.D.; CLIA# [id number] Blood Peripheral blood specimen / Unknown Venipuncture / Unknown 05/26/2024 5:34 AM CDT 05/26/2024 6:12 AM CDT Graeme Suarez MD LAB BLOOD ORDERABLES Final Resu lt [facility] * Homocysteine Total (05/26/2024 5:34 AM CDT) Pathologist [facility] Homocysteine Total 12.8 <=15.0 mcmol/L 05/26/2024 6:34 AM CDT [facility] Blood Peripheral blood specimen / Unknown Venipuncture / Unknown 05/26/2024 5:34 AM CDT 05/26/2024 6:13 AM CDT Narrative [facility] - 05/26/2024 6:34 AM CDT Reference range established based on adult population Graeme Suarez MD LAB BLOOD ORDERABLES Final Resu lt [facility] Unless otherwise noted, all lab tests performed by: Division of Pathology and Laboratory Medicine [address] [place] [phone] * (ABNORMAL) Hepatic Function Panel (05/25/2024 4:48 AM CDT) Bilirubin Total <0.3 0.0 - 1.2 mg/dL 05/25/2024 4:02 PM CDT [facility] Comment: Direct and indirect bilirubin will not be reported when Total bilirubin result is <0.3 mg/dL Indocyanine Green (ICG) may cause falsely elevated bilirubin results. Total and direct bilirubin must not be measured from samples containing indocyanine green. False elevation of total bilirubin can be seen in patients with IgG concentrations above 28 g/L. Bilirubin Direct 05/25/20 4:02 PM CDT [facility] Comment: Direct and indirect bilirubin will not be reported when Total bilirubin result is <0.3 mg/dL Indocyanine Green (ICG) may cause falsely elevated bilirubin results. Total and direct bilirubin must not be measured from samples containing indocyanine green. Bilirubin Indirect 2023 4:02 PM CDT [facility] Comment:Direct and indirect bilirubin will not be reported when Total bilirubin result is <0.3 mg/dL Tot Protein 6.6 6.4 - 8.3 gm/dL 05/25/2024 4:02 PM CDT [facility] Alkaline Phosphatase 176(H) 40 - 129 U/L 05/25/2024 4:02 PM CDT [facility] Albumin Level 3.2(L) 3.5 - 5.2 gm/dL 05/25/2024 4:02 PM CDT [facility] AST 42(H) <=40 U/L 05/25/2024 4:02 PM CDT [facility] ALT 38 <=41 U/L 05/25/2024 4:02 PM CDT [facility] Blood Peripheral blood specimen / Unknown Venipuncture / Unknown 05/25/2024 4:48 AM CDT 05/25/2024 5:09 AM CDT us Graeme Suarez MD LAB BLOOD ORDERABLES Final Resu lt [facility] Unless otherwise noted, all lab tests performed by: Division of Pathology and Laboratory Medicine [address] [place] [phone] * aPTT (05/25/2024 4:48 AM CDT) Only the most recent of2 resultswithin the time period is included. Activated PTT 29.1 24.1 - 35.5 second(s) 05/25/2024 5:40 AM CDT [facility] Blood Peripheral blood specimen / Unknown Venipuncture / Unknown 05/25/2024 4:48 AM CDT 05/25/2024 5:09 AM CDT Mert Haque APRN LAB BLOOD ORDERABLES Final R esult Performing Organization Address [facility] de Phone Number [facility] Unless otherwise noted, all lab tests performed by: Division of Pathology and Laboratory Medicine [address] [place] [id number] * Fibrinogen (05/25/2024 4:48 AM CDT) Pathologist [facility] Fibrinogen 443 214 - 503 mg/dL 05/25/2024 5:40 AM CDT [facility] Blood Peripheral blood specimen / Unknown Venipuncture / Unknown 05/25/2024 4:48 AM CDT 05/25/2024 5:09 AM CDT Mert Haque APRN LAB BLOOD ORDERABLES Final R esult Performing Organization Address [facility] de Phone Number [facility] Unless otherwise noted, all lab tests performed by: Division of Pathology and Laboratory Medicine [address] [place] [phone] * EKG, 12-Lead (05/18/2024) Christopher Duran MD ECG ORDERABLES Final Result Performing Organization Address [facility] de Phone Number JORGE IECG * (ABNORMAL) Urinalysis with Microscopic (05/14/2024 6:26 PM CDT) Urine Appearance Clear Clear 05/14/20 9:15 PM CDT [facility] Comment:This result was prev iously suppressed from the chart. Urine Color Straw Colorless, Straw, Yellow, Dark Yellow, Straw-Yello w 05/14/2024 9:15 PM CDT [facility] Comment:This result was prev iously suppressed from the chart. Urine Specific [place] 1.020 1.003 - 1.035 05/14/2024 9:15 PM CDT [facility] Comment:This result was prev iously suppressed from the chart. Urine pH 6.0 5.0 - 8.0 05/14/2024 9:15 PM CDT [facility] Comment:This result was prev iously suppressed from the chart. Urine Glucose 70(A) Negative mg/dL 05/14/2024 9:15 PM CDT [facility] Comment:This result was prev iously suppressed from the chart. Urine Ketones Negative Negative mg/dL 05/14/2024 9:15 PM CDT [facility] Comment:This result was prev iously suppressed from the chart. Urine Blood Moderate(A) Negative 05/14/2024 9:15 PM CDT [facility] Comment:This result was prev iously suppressed from the chart. Urine Protein 50(A) Negative mg/dL 05/14/2024 9:15 PM CDT [facility] Comment:This result was prev iously suppressed from the chart. Urine Bilirubin Negative Negative 9:15 PM CDT [facility] Urine Urobilinogen Negative Negative 05/14/2024 9:15 PM CDT [facility] Urine Nitrite Negative Negative 05/14/2024 9:15 PM CDT [facility] Comment:This result was prev iously suppressed from the chart. Urine Leukocyte Esterase Small(A) Negative 05/14/2024 9:15 PM CDT [facility] Comment:This result was prev iously suppressed from the chart. Urine WBC 7(H) <=2 /HPF 05/14/2024 9:15 PM CDT [facility] Urine RBC 8(H) <=2 /HPF 05/14/2024 9:15 PM CDT [facility] Urine Mucous Trace Not Seen, Trace /HPF 05/14/2024 9:15 PM CDT [facility] Comment:This result was prev iously suppressed from the chart. Urine Bacteria OCC(A) Not Seen /HPF 05/14/2024 9:15 PM CDT [facility] Comment:This result was prev iously suppressed from the chart. Urine Squamous Epithelial Cells OCC Not Seen, OCC, Rare /HPF 05/14/2024 9:15 PM CDT [facility] Comment:This result was prev iously suppressed from the chart. Urine Hyaline Casts 6(H) <=2 /LPF 05/14/2024 9:15 PM CDT [facility] Urine Voided urine specimen / Unknown Non-blood Collection / Unknown 05/14/2024 6:26 PM CDT 05/14/2024 8:55 PM CDT Narrative [facility] - 05/14/2024 9:15 PM CDT Some reporting parameters within the Urinalysis test have changed due to the implementation of new instrumentation in the [facility], allowing greater sensitivity of measurement. Urinalysis results reported by the [facility] using existing instrumentation, as well as Urinalysis testing performed manually or by back-up methodology at the [facility], will remain relatively unchanged. New reporting parameters and units will now be reported for all campuses. us Shayy Perdomo MD URINE ORDERABLES Final R esult [facility] Unless otherwise noted, all lab tests performed by: Division of Pathology and Laboratory Medicine [address] [place] [id number] * Echocardiogram 2D Complete (05/14/2024 4:10 PM [...] (avg): 8.6 E/e' (lat): 5.6E/e' (sept): 19.4 us Shayy Perdomo MD CV ECHO ORDERABLES Edite d Result - Final ISCV * (ABNORMAL) NT-Pro BNP (In-House) (05/14/2024 10:09 AM CDT) Only the most recent of2 resultswithin the time period is included. NT-ProBNP 772(H) <=450 pg/mL 05/14/2024 12:31 PM CDT [facility] Blood Peripheral blood specimen / Unknown Venipuncture / Unknown 05/14/2024 10:09 AM CDT 05/14/2024 10:18 AM CDT us Shayy Perdomo MD LAB BLOOD ORDERABLES Fin al Result [facility] Unless otherwise noted, all lab tests performed by: Division of Pathology and Laboratory Medicine [address] [place] [phone] * CT Abdomen Pelvis with and without [...] actionable. Armen Chavarria MD IMG CT ORDERABLES Final Result * Confirm ABORh (05/12/2024 3:18 PM CDT) ABORh Confirm O POS 05/12/2024 3:12 PM CDT [facility] - TRANSF[facility]ION [facility] Blood Peripheral blood specimen / Unknown Port / Unknown 05/12/2024 3:18 PM CDT 05/12/2024 3:23 PM CDT Ramirez Rasheed MD BLOOD BANK TEST ORDERABLES F inal Result [facility] - TRANSFUSION SERVICES [facility] [id number] [place] [address] * CT Abdomen Pelvis without Contrast (02/05/2024 [...] See impression. Marbella GRAJEDA IMG CT ORDERABLES Edited Result - Final * Troponin I (Sendout) (01/27/2024 9:16 AM CDT) Pathologist [facility] Troponin-I 27 <=78 01/28/2024 7:08 AM CDT [facility] Blood Peripheral blood specimen / Unknown Port / Unknown 01/27/2024 9:16 AM CDT 01/27/2024 9:17 AM CDT Narrative [facility] - 01/28/2024 7:08 AM CDT Based on the Third [place] Definition of Mycocardial Infarction, the 99th percentile upper reference limit of Troponin I for a healthy population is <0.03 ng/mL. Jose Finch MD LAB BLOOD ORDERABLES Final R esult [facility] [place] [facility] [address] [place] [address], [place] * (ABNORMAL) Troponin T (In-House) (01/27/2024 9:16 AM CDT) Pathologist [facility] Troponin T 34(H) <=19 ng/L 01/27/2024 2:57 PM CDT [facility] [place] Blood Peripheral blood specimen / Unknown Port / Unknown 01/27/2024 9:16 AM CDT 01/27/2024 9:17 AM CDT Narrative [facility] - 01/27/2024 2:57 PM CDT Reference range [...] results. Jose Finch MD LAB BLOOD ORDERABLES Final R esult Performing Organization Address City/[facility]/ZIP Co de Phone Number [facility] Unless otherwise noted, all lab tests performed by: Division of Pathology and Laboratory Medicine [address] [place] [phone] * CKMB (01/27/2024 9:16 AM CDT) CKMB <2.0 <=10.4 ng/mL 01/27/2024 3:01 PM CDT [facility] Blood Peripheral blood specimen / Unknown Port / Unknown 01/27/2024 9:16 AM CDT 01/27/2024 9:17 AM CDT Jose Finch MD LAB BLOOD ORDERABLES Final R esult [facility] Unless otherwise noted, all lab tests performed by: Division of Pathology and Laboratory Medicine [address] [place] [id number] * Creatine Kinase (01/27/2024 9:16 AM CDT) Creatine Kinase 41 39 - 308 U/L 01/27/2024 3:01 PM CDT [facility] Blood Peripheral blood specimen / Unknown Port / Unknown 01/27/2024 9:16 AM CDT 01/27/2024 9:17 AM CDT us Jose Finch MD LAB BLOOD ORDERABLES Final R esult [facility] Unless otherwise noted, all lab tests performed by: Division of Pathology and Laboratory Medicine [facility] [place] [address] * (ABNORMAL) Lipid Panel (01/27/2024 9:16 AM CDT) Cholesterol Total 142 <=199 mg/dL 01/27/2024 9:55 AM [facility] [place] Comment: ATP III Classification of Total Cholesterol - Primary Target of Therapy (in mg/dL): <200 Desirable 200-239 Borderline high >=240 High Triglyceride 210(H) <=149 mg/dL 01/27/2024 9:55 AM [facility] Comment: ATP III Classification of Serum Triglycerides Primary Target of Therapy (in mg/dL): <150 Normal 150-199 Borderline high 200-499 High >=500 Very high Non-fasting triglycerides >200 mg/dL may be followed up with a fasting Lipid Panel. Calculated LDL-C may be falsely decreased when non-fasting triglycerides >200 mg/dL. HDL Cholesterol 39(L) >=40 mg/dL 01/27/2024 9:55 AM [facility] LDL Cholesterol 61 <=100 mg/dL 01/27/2024 9:55 AM [facility] Comment: ATP III Classification of LDL Cholesterol Primary Target of Therapy (in mg/dL): <100 Optimal 100-129 Near optimal/above optimal 130-159 Borderline high 160-189 High >=190 Very high Very Low Density Lipoprotein 42 mg/dL 01/27/2024 9:55 AM [facility] Is patient fasting? Yes 01/26 9:55 AM [facility] Blood Peripheral blood specimen / Unknown Port / Unknown 01/27/2024 9:16 AM CDT 01/27/2024 9:17 AM CDT us Jose Finch MD LAB BLOOD ORDERABLES Final R esult [facility] [place] [address] [facility] [address] [place] [address] * XR Chest 2 Views (01/26/2024 1:30 [...] ACTIONABLE ITEMS/RECOMMENDATIONS*: None. Marbella GRAJEDA IMG DIAGNOSTIC IMAGING ORDERABLE S Final Result * EKG, 12-Lead (Scheduled) (01/26/2024) us Jose Finch MD ECG ORDERABLES Final Result JORGE IECG * MRI Abdomen & Pelvis with and without Contrast (01/16/2024 6:53 PM E[facility] SORTER) Anatomical Region Laterality Modality Abdomen Magnetic Resonan ce 01/17/2024 5:58 AM [facility] Impressions 01/17/2024 7:20 AM E[facility] Impression: 1. The primary tumor within the [...] ITEMS/RECOMMENDATIONS*: See impression. Narrative 01/17/2024 7:20 AM [facility] Examination: MRI ABDOMEN & PELVIS W AND [...] dated 12/09/2023 and ERCP images from ERCP 2-. Comparison is also made with CT chest [...] in the segment 8 liver dome medially (, image 174) shows corresponding T2 hyperintensity (series [...] suspicious intra-abdominal lymphadenopathy. ACTIONABLE ITEMS/RECOMMENDATIONS*: See impression. [facility] Kelli GRAJEDA [facility] MRI ORDERABLES Final Result * CT Chest without Contrast (01/07/2024 4:49 PM EGG SORTER) Anatomical Region Laterality Modality Chest Computed Tomogra phy 01/08/2024 7:15 AM E[facility] SORTER Impressions 01/08/2024 7:30 AM E[facility] S[facility]TER Calcified and noncalcified pulmonary nodules may be sequela of granulomatous disease. Follow-up to ensure stability exclude metastatic disease can be performed. Bilateral peripheral lower lung reticular opacities concerning for scarring/fibrosis. Additional opacities in the right lower lobe most likely due to atelectasis or scarring and clinical correlation and follow-up is recommended. ACTIONABLE ITEMS/RECOMMENDATIONS*: See impression. Narrative 01/08/2024 7:30 AM E[facility] S[facility]TER FULL RESULT: Examination: CT CHEST WO CONTRAST [...] is recommended. ACTIONABLE ITEMS/RECOMMENDATIONS*: See impression. Marbella JO CT ORDERABLES Final Result * OSI Interventional (12/19/2023 11:58 PM EGG SORTER) Only the most recent of2 resultswithin the time period is included. Narrative Systemgenerated, Documentation - 01/09/2024 11:58 PM EGG SORTER Study acquired at another institution. For comparison only. No MD Navarrete originated interpretation requested or available. us Dashawn PAGEG OUTSIDE IMAGE ORDERABLES Fi nal Result * OSI CT Chest (12/09/2023 11:57 PM EGG SORTER) Narrative Systemgenerated, Documentation - 01/09/2024 11:57 PM EGG SORTER Study acquired at another institution. For comparison only. No [facility] originated interpretation requested or available. us Dashawn Sutherland MD IMG OUTSIDE IMAGE ORDERABLES Fi nal Result * OSI CT Abdomen and Pelvis (12/09/2023 11:57 PM EGG SORTER) Narrative Systemgenerated, Documentation - 01/09/2024 11:57 PM EGG SORTER Study acquired at another institution. For comparison only. No MD Navarrete originated interpretation requested or available. us Dashawn JO OUTSIDE IMAGE ORDERABLES Fi nal Result * Pathology Outside Interpretation (12/09/2023) Only the most recent of2 resultswithin the time period is included. Materials Received Accession#, Stained, Block, Unstained Collected Received A. [id number], 4 SS, 0 BLOCKS, 0 USS 12/09/2023 01/14/2024 01/15/2024 11:40 AM [facility] [employer] [facility] Diagnosis Received 4 slides ([id number]) designated common bile duct, brushing: Rare atypical cell clusters 01/15/2024 11:40 AM [facility] Comment Scant cellularity precludes a more definitive characterization. See also the [facility] review ([id number]) of the concurrent biopsy. 01/15/2024 11:40 AM [facility] Disclaimer "Some tests reported here may have been developed and performance characteristics determined by [facility] Pathology and Laboratory Medicine. These tests have not been specifically cleared or approved by the U.S. Food and Drug Administration. If applicable, controls were reviewed and showed appropriate reactivity." 01/15/2024 11:40 AM [facility] Tissue 12/09/2023 01/14/2024 11: 40 AM EGG SORTER us Ralf Pelayo LAB PATHOLOGY ORDERABLES Final R esult [facility] [place] [address] [place] [address], [place] after 09/29/2023 Insurance [employer] MEDICARE ADVANTAGE [employer] MEDIC[employer] ADVANTAGE Advance Directives * Full Code (Latest Code Status on File) Date Activated Date Inactivated Comments 07/28/2024 12:06 AM 07/30/2024 4:39 PM * Full Code Date Activated Date Inactivated Comments 07/04/2024 6:58 PM 07/08/2024 1:41 PM * Full Code Date Activated Date Inactivated Comments 05/12/2024 5:09 PM 05/29/2024 5:06 PM Care Teams Pricing Consultant Relationship Specialty Start Date End Date Al Carrasco MD [address] [place] [address] [email or web address] PCP - External Follow Up A General Surgery 12/26/23 Dashawn Sutherland MD [address] [place] [id number] [email or web address] PCP - General Gastrointestinal Medical Oncology 01/05/24 Al Quick IV, MD [address] [place] [id number] [email or web address] Consulting Physician Urology 04/09/24 Rashida Rico MD [address] [place] [id number] [email or web address] Consulting Physician Radiation Oncology 08/11/24 Eugene Martinez MD [address] [place] [id number] [email or web address] Consulting Physician Endocrinology 09/02/24
[2024-09-28 19:17] LABS: Absolute Lymphocytes (CBC) 0.7 K/uL (0.7-4.9); Absolute Monocytes 0.2 K/uL (0.1-1.3); Absolute Neutrophil 6.9 K/uL (1.8-8.0); Basophils % 0.3 % (0-1.3); Eosinophils % 0.1 % (0-4.4); Hematocrit 32.2 % (39.6-49.0); Hemoglobin 10.7 g/dL (13.6-17.9); Lymphocytes % 8.8 % (15.3-44.8); MCH 32.5 pg (27.0-35.0); MCHC 33.4 g/dL (32.0-36.0); MCV 97.4 fL (80-100); MPV 7.6 fL (7.6-11.3); Monocytes % 2.4 % (3.3-12.3); Neutrophils % 88.4 % (41.7-73.7); Nucleated Red Blood Cells % 0.1 % (0-0); Platelets 246 thou/uL (152-406); Red Cell Distribution Width 16.9 % (12.1-15.2)
[2024-09-28 19:20] LABS: PT Prothrombin Time 13.4 SECONDS (9.4-12.5); PTT, Activated Partial Thromb 33.3 SECONDS (24.3-36.9); Protime INR 1.2
[2024-09-28 19:30] LABS: Albumin 2.9 g/dL (3.4-5.0); Albumin/Globulin Ratio 0.5 (1.1-1.8); Anion Gap 15.1 mEq/L (5.0-15.0); Bilirubin Total 4.4 mg/dL (0.2-1.0); Globulin 5.5 g/dL (2.3-3.5); Potassium 4.1 mEq/L (3.5-5.1); Protein, Total 8.4 g/dL (6.4-8.2)
--- NOTE | 2024-09-28 19:33 | RAD REPORT ---
EXAMINATION: ONE VIEW CHEST XR CLINICAL INDICATION: FEVER TECHNIQUE: Frontal chest projection is submitted. Examination is limited by patient positioning and t echnique. COMPARISON: 07/04/2024 FINDINGS: Lungs are mildly underinflated but grossly clear. The heart is normal in size. No displaced fractures identified. Sternotomy. Left-sided port catheter is tip in the right atrium. IMPRESSION: No acute intrathoracic abnormalities.
[2024-09-28] MEDS ORDERED: IBUPROFEN 200 MG TAB PO ONE (19:37)
[2024-09-28] MEDS ORDERED: VANCOMYCIN 1 GM/VIAL ONE (20:22)
[2024-09-28] MEDS ORDERED: PIPERACIL/TAZO 4.5 GM VIAL IV ONE (20:22)
[2024-09-28] MEDS ORDERED: NA CHLORIDE 0.9% 250 ML ONE (20:22)
[2024-09-28] MEDS ORDERED: NA CHLORIDE 0.9% 2,000 ML ONE (20:23)
[2024-09-28] MEDS ORDERED: NA CHLORIDE 0.9% 100 ML ONE (20:23)
--- NOTE | 2024-09-28 20:27 | RAD REPORT ---
EXAM: CT brain without contrast HISTORY: vomiting;Confused COMPARISON: None TECHNIQUE: Multiple contiguous axial images were obtained and a CT of the brain without contrast. Sag ittal and coronal reformats were performed. One or more of the following dose reduction techniques were used: Automated exposure control, adjust ment of the mA and/or kV according to patient size, and/or iterative reconstruction. FINDINGS: No evidence of hydrocephalus, intracranial hemorrhage, or extra-axial fluid collection. Mild brain atrophy with mild periventricular and deep white matter chronic microvascular ischemic ch anges present. 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 The calvarium is intact. The visualized paranasal sinuses and mastoid air cells are essentially clear . IMPRESSION: No evidence of acute intracranial abnormality. If clinical symptomology persists, follow-up MRI of brain would be advised.
--- NOTE | 2024-09-28 20:33 | RAD REPORT ---
EXAMINATION: CT ABDOMEN AND PELVIS WITHOUT CONTRAST CLINICAL INDICATION: vomiting, fever TECHNIQUE: CT abdomen and pelvis was performed, without IV contrast, as per department protocol. Axia l, sagittal and coronal reconstructions were obtained. One or more of the following dose reduction techniques were used: Automated exposure control, adjustment of the mA and kV according to the patien t size, and iterative reconstruction. Unless otherwise specified, incidental findings do not require dedicated imaging follow-up. COMPARISON: 03/20/2024 FINDINGS: The lack of intravenous contrast limits the sensitivity of this exam for evaluation of solid visceral organs, vascular structures, and retroperitoneum. LOWER CHEST: Mild dependent opacities in both lung bases. Small hiatal hernia. LIVER:Biliary stent is noted in the left lobe of the liver and common bile duct.. Cholecystectomy. Th e liver is otherwise unremarkable for noncontrast imaging. SPLEEN: Normal size. No focal lesion. PANCREAS: No mass, ductal dilation, or beka-pancreatic fluid. ADRENALS: Normal; no mass. KIDNEYS AND URETERS: Small calyceal calcifications bilaterally. No hydronephrosis. URINARY BLADDER: Normal contour. GASTROINTESTINAL TRACT: No evidence of bowel obstruction, significant free fluid, free air or abscess . Sigmoid diverticulosis coli without diverticulitis. APPENDIX: Normal appendix. LYMPH NODES: No lymphadenopathy. MUSCULOSKELETAL: Mild multilevel spinal degenerative changes. ADDITIONAL FINDINGS: None. IMPRESSION: No acute or concerning abnormalities in the abdomen or pelvis, with evaluation limited by lack of IV contrast. Sigmoid diverticulosis coli without diverticulitis. 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
[2024-09-28] MEDS ORDERED: ACETAMINOPHEN 500 MG TAB ONE (22:09)
[2024-09-28] MEDS ORDERED: NA CHLORIDE 0.9% 1,000 ML ONE (22:59)
[2024-09-28 23:09] LABS: Specific Gravity 1.022 (1.005-1.030); Sqamous Epithelial None Seen /HPF (None Seen); Urine Bacteria None Seen /HPF (<20); Urine Bilirubin 2+ (Negative); Urine Blood Negative (Negative); Urine Clarity Turbid (Clear); Urine Color Dark-Yellow (Yellow); Urine Culture Reflex Order NOT NEEDED; Urine Glucose 2+ (Negative); Urine Ketones NEGATIVE (Negative); Urine Microscopic Reflex YN ORDER UMIC; Urine Mucus Slight /HPF (None Seen); Urine Nitrite NEGATIVE (Negative); Urine Protein 2+ (Negative); Urine RBC <5 /HPF (None Seen); Urine Urobilinogen 2+ (Normal); Urine WBC <5 /HPF (<5); Urine pH 5.5 (5.0-7.0)
--- NOTE | 2024-09-28 23:51 | EDPHYS ---
Physician Documentation [facility] Name: Nnamdi Flores III Age: 78 yrs Sex: Male : 1945 Arrival Date: 09/28/2024 Time: 18:24 Bed 13 Private MD: ED Physician Juanito Sapp HPI: 09/28 19:55 This 78 yrs old Male presents to ER via Ambulatory with complaints of Altered Mental ms3 Status, Fever. 19:55 78 year old male with known diagnosis of bile duct cancer is currently undergoing ms3 monthly immunotherapy presents to the Emergency Department with his for fever and AMS. According to his medical team at [facility], his cancer is stable and unrelated to his current symptoms. Starting last night, he developed fever and shaking, which seemed to respond to Tylenol initially but recurred. He has experienced significant vomiting, at least three times today, and altered mental status, being unresponsive to surroundings and not remembering events. He has had similar episodes in the past, requiring emergency services. . Historical: - Allergies: 18:52 Morphine; ss 18:52 Sulfa (Sulfonamide Antibiotics); ss - PMHx: 18:52 BILE DUCT CANCER (Hypothyroidism); BPH; coronary atherosclerosis; Hypertensive ss disorder; Hypothyroidism; - Immunization history:: Adult Immunizations unknown. - Infectious Disease History:: Denies. - Social history:: Smoking status: unknown. ROS: 19:55 Constitutional: Positive for fever, ms3 19:55 Abdomen/GI: Positive for vomiting, 19:55 Unable to obtain ROS due to altered mental status, 23:52 Constitutional: Positive for fever sp4 23:52 All other systems are negative, Exam: 19:55 Constitutional: The patient appears alert, awake, obviously ill, pale, ms3 19:55 Cardiovascular: Rate: tachycardic, Rhythm: regular, Heart sounds: normal, normal S1and S2, 19:55 ECG was reviewed by the Attending Physician. 19:55 Head/Face: Normocephalic, atraumatic. Eyes: Pupils equal round and reactive to light, ms3 extra-ocular motions intact. Lids and lashes normal. Conjunctiva and sclera are non-icteric and not injected. Periorbital areas with no swelling, redness, or edema. Chest/axilla: Normal chest wall appearance and motion. Nontender with no deformity. 19:55 Neuro: Orientation: to person, Vital Signs: 18:32 BP 181 / 78; Pulse 113; Resp 27; Temp 101.5(O); Pulse Ox 96% on R/A; Weight 78.02 kg; ss 19:30 BP 154 / 63; Pulse 127; Resp 21; Temp 101.4(O); Pulse Ox 97% on R/A; rg5 20:30 BP 150 / 60; Pulse 117; Resp 19; Temp 99.3(O); Pulse Ox 100% ; Pain 0/10; rg5 21:16 BP 153 / 108; Pulse 118; Resp 19; Temp 101(O); Pulse Ox 99% on R/A; rg5 21:45 BP 169 / 106; Pulse 119; Resp 20; Pulse Ox 100% on R/A; rg5 22:30 BP 105 / 4; Pulse 112; Resp 18; Pulse Ox 100% on R/A; rg5 23:00 BP 100 / 45; Pulse 105; Resp 18; Pulse Ox 100% on R/A; rg5 13 00:09 BP 97 / 45; Pulse 103; Resp 17; Pulse Ox 98% on R/A; rg5 00:38 BP 101 / 52; Pulse 104; Resp 18 S; Pulse Ox 100% on R/A; rg5 01:00 BP 113 / 60; Pulse 103; Resp 18; Pulse Ox 96% on R/A; rg5 20:30 Pain Scale: Adult rg5 MDM: 09/28 18:43 Medical Screening Exam initiated ms3 19:55 Differential Diagnosis: electrolyte abnormality, pneumonia, sepsis, UTI, volume ms3 depletion. 20:31 Transition of care: After a detail discussion of the patient's case, care is ms3 transferred to Juanito Sapp MD. 20:34 ED course: Sepsis re-evaluation complete. ms3 22:08 ED course: EXAMINATION: CTABDOMEN AND PELVIS WITHOUT CONTRAST CLINICAL INDICATION: sp4 vomiting, fever TECHNIQUE: CT abdomen and pelvis was performed, without IV contrast, as per department protocol. Axial, sagittal and coronal reconstructions were obtained. One or more of the following dose reducti on techniques were used: Automated exposure control, adjustment of the mA and kV according to the patient size, and iterative reconstruction. Unless otherwise specified, incidental findings do not require dedicated imaging follow-up. COMPARISON: 03/20/2024 FINDINGS: The lack of intravenous contrast limits the sensitivity of this exam for evaluation of solid visceral organs, vascular structures, and retroperitoneum. LOWER CHEST: Mild dependent opacities in both lung bases. Small hiatal hernia. LIVER:Biliary stent is noted in the left lobe of the liver and common bile duct.. Cholecystectomy. The liver is otherwise unremarkable for noncontrast imaging. SPLEEN: Normal size. No focal lesion. PANCREAS: No mass, ductal dilation, or beka-pancreatic fluid. ADRENALS: Normal; no mass. KIDNEYS AND URETERS: Small calyceal calcifications bilaterally. No hydronephrosis. URINARYBLADDER: Normal contour. GASTROINTESTINAL TRACT: No evidence of bowel obstruction, significant free fluid, free air or abscess. Sigmoid diverticulosis coli without diverticulitis. APPENDIX: Normal appendix. IMPRESSION: No acute or concerning abnormalities in the abdomen or pelvis, with evaluation limited by lack of IV contrast. Sigmoid diverticulosis coli without diverticulitis. 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 . ED course: EXAM: CT brain without contrast HISTORY: vomiting;Confused COMPARISON: None TECHNIQUE: Multiple contiguous axial images were obtained and a CT of the brain without contrast. Sagittal and coronal reformats were performed. One or more of the following dose reduction techniques were used: Automated exposure control, adjustment of the mA and/or kV according to patient size, and/or iterative reconstruction. FINDINGS: No evidence of hydrocephalus, intracranial hemorrhage, or extra-axial fluid collection. Mild brain atrophy with mild periventricular and deep white matter chronic microvascular ischemic changes present. 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 The calvarium is intact. The visualized paranasal sinuses and mastoid air cells are essentially clear. IMPRESSION: No evidence of acute intracranial abnormality. If clinical symptomology persists, follow-up MRI of brain would be advised.. ED course: EXAMINATION: ONE VIEW CHEST XR CLINICAL INDICATION: FEVER TECHNIQUE: Frontal chest projection is submitted. Examination is limited by patient positioning and technique. COMPARISON: 07/04/2024 FINDINGS: Lungs are mildly underinflated but grossly clear. The heart is normal in size. No displaced fractures identified. Sternotomy. Left-sided port catheter is tip in the right atrium. IMPRESSION: No acute intrathoracic abnormalities. . 23:52 Data reviewed: vital signs, nurses notes, lab test result(s), EKG, radiologic studies, sp4 CT scan, plain films. Consideration of Admission/Observation Escalation of care including admission/observation considered. 09/29 19:36 ED course: Patient was accepted at [facility] for further management. Patient has sp4 history of biliary cancer and most of the healthcare is administered by [facility]. Therefore patient's family requested to be transferred to [facility].. 09/28 18:45 Order name: Blood Culture Adult (2) ms3 09/28 18:45 Order name: CBC with Diff; Complete Time: 19:32 ms3 09/28 18:45 Order name: CMP; Complete Time: 19:32 ms3 09/28 18:45 Order name: Lactate w/ 2H reflex if indic.; Complete Time: 20:06 ms3 09/28 18:45 Order name: Protime (+inr); Complete Time: 19:32 ms3 09/28 18:45 Order name: Ptt, Activated; Complete Time: 19:32 ms3 09/28 18:45 Order name: Urinalysis w/ reflexes; Complete Time: 23:39 ms3 09/28 21:54 Order name: Ghost Lactate-NO COLLECT Timer; Complete Time: 21:57 EDMS 09/28 23:39 Order name: SARS RAPID; Complete Time: 03:15 sp4 09/28 18:45 Order name: Chest Single View XRAY; Complete Time: 19:38 ms3 09/28 18:45 Order name: CT Head Brain wo Cont; Complete Time: 21:57 ms3 09/28 20:20 Order name: Abdomen ; Complete Time: 21:57 EDMS 09/28 18:45 Order name: EKG; Complete Time: 18:46 ms3 09/28 18:45 Order name: Accucheck; Complete Time: 19:05 ms3 09/28 18:45 Order name: Cardiac monitoring; Complete Time: 18:59 ms3 09/28 18:45 Order name: EKG - Nurse/Tech; Complete Time: 18:59 ms3 09/28 18:45 Order name: IV Saline Lock - Large Bore; Complete Time: 19:04 ms3 09/28 18:45 Order name: Labs collected and sent; Complete Time: 19:04 ms3 09/28 18:45 Order name: O2 Per Protocol; Complete Time: 18:59 ms3 09/28 18:45 Order name: O2 Sat Monitoring; Complete Time: 18:59 ms3 09/28 18:45 Order name: Vital Signs; Complete Time: 18:59 ms3 09/28 22:06 Order name: Kellen; Complete Time: 22:41 sp4 EC/12 19:55 Rate is 116 beats/min. Rhythm is regular. Left axis deviation noted. QRS interval is ms3 normal. Clinical impression: Sinus tachycardia. Interpreted by me. Reviewed by me. Administered Medications: 19:40 Drug: Ibuprofen PO 600 mg PO once Route: PO; rg5 20:38 Follow up: Response: No adverse reaction rg5 20:15 Drug: Piperacillin-Tazobactam IVPB 4.5 grams IVPB once over 60 mins; (mix in 100 mL NS) rg5 Route: IVPB; Infused Over: 60 mins; Site: right hand; 09/29 00:16 Follow up: IV Status: Completed infusion; IV Intake: 250ml rg5 09/28 20:30 Drug: NS 0.9% IV (30 ml/kg) 30 ml/kg IV at bolus once; Sepsis Protocol; to be given as vc1 a bolus over 90 minutes Route: IV; Rate: bolus; Site: right antecubital; 23:38 Follow up: IV Status: Completed infusion; IV Intake: 2400ml rg5 21:13 Drug: vancoMYCIN IVPB 1 grams IVPB once over 2 hrs Route: IVPB; Infused Over: 2 hrs; rg5 Site: right hand; 09/29 00:16 Follow up: IV Status: Completed infusion; IV Intake: 250ml rg5 09/28 22:10 Drug: Acetaminophen PO 1000 mg PO once Route: PO; rg5 23:38 Follow up: Response: No adverse reaction rg5 23:38 Drug: NS 0.9% IV 1000 ml IV at 125 ml/hr continuous Route: IV; Rate: 125 ml/hr; Site: rg5 right hand; 09/29 01:53 Follow up: IV Intake: 200ml rg5 00:31 Drug: NS 0.9% IV 500 ml IV at bolus once; to be given as a bolus over 30 minutes Route: rg5 IV; Rate: bolus; Site: right hand; 01:50 Follow up: IV Status: Completed infusion; IV Intake: 500ml rg5 00:38 Drug: Albumin IVPB 25 grams 100 ml IVPB once; (Note: Albumin 25% concentration) Volume: rg5 100 ml; Route: IVPB; Site: right hand; 01:00 Follow up: IV Status: Completed infusion; IV Intake: 50ml rg5 00:52 Drug: Albumin IVPB 25 grams 100 ml IVPB once; (Note: Albumin 25% concentration) Volume: rg5 100 ml; Route: IVPB; Site: right hand; 01:53 Follow up: IV Status: Completed infusion; IV Intake: 100ml rg5 Disposition Summary: 09/28/24 23:51 Transfer Ordered Notes: Transfer Location: Other Acute Care Facility sp4 Reason: Higher level of care sp4 Condition: Fair sp4 Problem: new sp4 Symptoms: have improved sp4 Accepting Physician: [facility] Attending (09/29/24 01:38) rg5 Diagnosis - Severe sepsis without septic shock sp4 - Acute Hepatitis sp4 Forms: - Medication Reconciliation Form sp4 - SBAR form sp4 Signatures: Dispatcher [employer] EDMS Inessa Mcguire, RN RN ss Chase Mesa DO DO ms3 Janki Hudson RN RN vc1 Juanito Sapp MD MD sp4 Jose Jeffers, RN RN rg5 Corrections: (The following items were deleted from the chart) 09/28 18:46 18:46 Abdomen Pelvis W Con+CT.RAD.BRZ ordered. EDMS EDMS 18:46 18:46 Head Brain Wo Cont+CT.RAD.BRZ ordered. EDMS EDMS 23:40 23:40 SARS-COV-2 Antigen Rapid+I.LAB.BRZ ordered. EDMS EDMS 23:52 23:51 [facility] sp4 09/29 01:38 09/28 23:52 [facility] rg5
--- NOTE | 2024-09-28 23:51 | ER ---
Nurse's Notes [facility] Name: Nnamdi Flores III Age: 78 yrs Sex: Male : 1945 Arrival Date: 09/28/2024 Time: 18:24 Bed 13 Private MD: Diagnosis: Severe sepsis without septic shock;Acute Hepatitis Presentation: 09/28 18:32 Chief complaint: Patient states: N/V, fever and confusion that began last night. ss states, "this has happened 3-4 times before. The cancer doctor says it's not because of his cancer, they can't find out what it is. We went to his doctor yesterday, and they said everything looked good.". Coronavirus screen: Client denies travel out of the [place] in the last 14 days. Ebola Screen: Patient denies exposure to infectious person. Patient denies travel to an Ebola-affected area in the 21 days before illness onset. Initial Sepsis Screen: Does the patient meet any 2 criteria? No. Patient's initial sepsis screen is negative. Does the patient have a suspected source of infection? No. Patient's initial sepsis screen is negative. Risk Assessment: Do you want to hurt yourself or someone else? Patient reports no desire to harm self or others. Onset of symptoms was September 27, 2024. 18:32 Method Of Arrival: Ambulatory 18:32 Acuity: DAMION 2 ss Historical: - Allergies: 18:52 Morphine; ss 18:52 Sulfa (Sulfonamide Antibiotics); ss - PMHx: 18:52 BILE DUCT CANCER (Hypothyroidism); BPH; coronary atherosclerosis; Hypertensive ss disorder; Hypothyroidism; - Immunization history:: Adult Immunizations unknown. - Infectious Disease History:: Denies. - Social history:: Smoking status: unknown. Screenin:07 [facility] ED Fall Risk Assessment (Adult) History of falling in the last 3 months, rg5 including since admission No falls in past 3 months (0 pts) Confusion or Disorientation Yes (5 pts) Intoxicated or Sedated No (0 pts) Impaired Gait Yes (1 pt) Mobility Assist Device Used Yes (1 pt) Altered Elimination No (0 pt) Score/Fall Risk Level 0 - 2 = Low Risk Oriented to surroundings, Maintained a safe environment, Hourly rounding (assess needs \\T\\ fall precautionary measures) done. Abuse screen: Denies threats or abuse. Nutritional screening: No deficits noted. Tuberculosis screening: No symptoms or risk factors identified. Assessment: 19:07 General: Appears uncomfortable, Behavior is calm, cooperative, appropriate for age. rg5 19:07 Pain: Denies pain. Neuro: Level of Consciousness is awake, obeys commands, Oriented to rg5 person, time. Cardiovascular: Heart tones S1 S2 Patient's skin is warm and dry. Respiratory: Airway is patent Trachea midline Respiratory effort is even. GI: Abdomen is round non-distended, Abd is soft and non tender. : No signs and/or symptoms were reported regarding the genitourinary system. EENT: No deficits noted. Derm: Skin is fragile, Skin is dry, Skin is normal, Skin temperature is warm. Musculoskeletal: Circulation, motion, and sensation intact. Range of motion: intact in all extremities. 20:15 Reassessment: No changes from previously documented assessment. Patient and/or family rg5 updated on plan of care and expected duration. Pain level reassessed. Patient is alert, oriented x 3, equal unlabored respirations, skin warm/dry/pink. 21:30 Reassessment: Patient and/or family updated on plan of care and expected duration. Pain rg5 level reassessed. Patient is alert, oriented x 3, equal unlabored respirations, skin warm/dry/pink. 22:30 Reassessment: Patient and/or family updated on plan of care and expected duration. Pain rg5 level reassessed. Patient is alert, oriented x 3, equal unlabored respirations, skin warm/dry/pink. 23:00 Reassessment: Patient and/or family updated on plan of care and expected duration. Pain rg5 level reassessed. Patient is alert, oriented x 3, equal unlabored respirations, skin warm/dry/pink. 09/29 00:00 Reassessment: No changes from previously documented assessment. Patient and/or family rg5 updated on plan of care and expected duration. Pain level reassessed. Patient is alert, oriented x 3, equal unlabored respirations, skin warm/dry/pink. 01:20 Reassessment: Patient and/or family updated on plan of care and expected duration. Pain rg5 level reassessed. Patient is alert, oriented x 3, equal unlabored respirations, skin warm/dry/pink. Vital Signs: 09/28 18:32 BP 181 / 78; Pulse 113; Resp 27; Temp 101.5(O); Pulse Ox 96% on R/A; Weight 78.02 kg; ss 19:30 BP 154 / 63; Pulse 127; Resp 21; Temp 101.4(O); Pulse Ox 97% on R/A; rg5 20:30 BP 150 / 60; Pulse 117; Resp 19; Temp 99.3(O); Pulse Ox 100% ; Pain 0/10; rg5 21:16 BP 153 / 108; Pulse 118; Resp 19; Temp 101(O); Pulse Ox 99% on R/A; rg5 21:45 BP 169 / 106; Pulse 119; Resp 20; Pulse Ox 100% on R/A; rg5 22:30 BP 105 / 4; Pulse 112; Resp 18; Pulse Ox 100% on R/A; rg5 23:00 BP 100 / 45; Pulse 105; Resp 18; Pulse Ox 100% on R/A; rg5 09/29 00:09 BP 97 / 45; Pulse 103; Resp 17; Pulse Ox 98% on R/A; rg5 00:38 BP 101 / 52; Pulse 104; Resp 18 S; Pulse Ox 100% on R/A; rg5 01:00 BP 113 / 60; Pulse 103; Resp 18; Pulse Ox 96% on R/A; rg5 20:30 Pain Scale: Adult rg5 ED Course: 09/28 18:32 Patient arrived in ED. jb4 18:33 Chase Mesa DO is Attending Physician. ms3 18:52 Triage completed. ss 18:52 Arm band placed on right wrist. ss 19:00 Initial lab(s) drawn, by me, sent to lab. First set of blood cultures drawn by me. cm10 Inserted saline lock: 20 gauge in right forearm, using aseptic technique. Blood collected. Flushed with 10 mL NS. 19:04 CBC with Diff Sent. cm10 19:04 CMP Sent. cm10 19:04 Lactate w/ 2H reflex if indic. Sent. cm10 19:04 Protime (+inr) Sent. cm10 19:04 Ptt, Activated Sent. cm10 19:07 Patient has correct armband on for positive identification. Allergy band placed. Fall rg5 risk band placed. Placed in gown. Bed in low position. Call light in reach. Side rails up X 1. Adult w/ patient. 19:07 No provider procedures requiring assistance completed. rg5 19:08 Report given to TORREY Castellano. cm10 19:24 Chest Single View XRAY In Process Unspecified. EDMS 19:45 Jose Jeffers, TORREY is Primary Nurse. rg5 19:58 Inserted saline lock: 22 gauge in right hand, using aseptic technique. Blood collected. oe Flushed with 10 mL NS. 20:05 Attending Physician role handed off by Chase Mesa DO sp4 20:05 Juanito Sapp MD is Attending Physician. sp4 20:20 Abdomen In Process Unspecified. EDMS 20:22 CT Head Brain wo Cont In Process Unspecified. EDMS 22:15 Cleaned of incontinence. Linen changed. rg5 22:30 Foreman cath inserted, using sterile technique, 16 Fr., by nj, balloon inflated, to rg5 gravity drainage, urine specimen collected. 23:49 Initiated transfer with Liyah at [facility]. rv1 09/29 00:[address] Mancilla to [facility] ER. Report #[id number]. rv1 01:37 Provided Education on: needs for transfer. rg5 01:37 Patient transferred, IV remains in place. intact, No redness/swelling at site. rg5 Administered Medications: 09/28 19:40 Drug: Ibuprofen PO 600 mg PO once Route: PO; rg5 20:38 Follow up: Response: No adverse reaction rg5 20:15 Drug: Piperacillin-Tazobactam IVPB 4.5 grams IVPB once over 60 mins; (mix in 100 mL NS) rg5 Route: IVPB; Infused Over: 60 mins; Site: right hand; 09/29 00:16 Follow up: IV Status: Completed infusion; IV Intake: 250ml rg5 09/28 20:30 Drug: NS 0.9% IV (30 ml/kg) 30 ml/kg IV at bolus once; Sepsis Protocol; to be given as vc1 a bolus over 90 minutes Route: IV; Rate: bolus; Site: right antecubital; 23:38 Follow up: IV Status: Completed infusion; IV Intake: 2400ml rg5 21:13 Drug: vancoMYCIN IVPB 1 grams IVPB once over 2 hrs Route: IVPB; Infused Over: 2 hrs; rg5 Site: right hand; 09/29 00:16 Follow up: IV Status: Completed infusion; IV Intake: 250ml rg5 09/28 22:10 Drug: Acetaminophen PO 1000 mg PO once Route: PO; rg5 23:38 Follow up: Response: No adverse reaction rg5 23:38 Drug: NS 0.9% IV 1000 ml IV at 125 ml/hr continuous Route: IV; Rate: 125 ml/hr; Site: [facility] right hand; 09/29 01:53 Follow up: IV Intake: 200ml rg5 00:31 Drug: NS 0.9% IV 500 ml IV at bolus once; to be given as a bolus over 30 minutes Route: rg5 IV; Rate: bolus; Site: right hand; 01:50 Follow up: IV Status: Completed infusion; IV Intake: 500ml rg5 00:38 Drug: Albumin IVPB 25 grams 100 ml IVPB once; (Note: Albumin 25% concentration) Volume: rg5 100 ml; Route: IVPB; Site: right hand; 01:00 Follow up: IV Status: Completed infusion; IV Intake: 50ml rg5 00:52 Drug: Albumin IVPB 25 grams 100 ml IVPB once; (Note: Albumin 25% concentration) Volume: rg5 100 ml; Route: IVPB; Site: right hand; :53 Follow up: IV Status: Completed infusion; IV Intake: 100ml rg5 Medication: 09/28 19:07 VIS not applicable for this client. rg5 Intake: 23:38 IV: 2400ml; Total: 2400ml. rg5 09/29 00:16 IV: 250ml; Total: 2650ml. rg5 00:16 IV: 250ml; Total: 2900ml. rg5 01:00 IV: 50ml; Total: 2950ml. rg5 01:50 IV: 500ml; Total: 3450ml. rg5 01:53 IV: 100ml; Total: 3550ml. rg5 01:53 IV: 200ml; Total: 3750ml. rg5 Outcome: 09/28 23:51 ER care complete, transfer ordered by [facility]. [facility] 09/29 01:37 Transferred by ground EMS to [facility], rg5 Condition: stable Discharge instructions given to family, EMS, 01:38 Patient left the ED. rg5 Signatures: Dispatcher [employer] EDMS Inessa Mcguire, RN RN ss Kyler Pruett, RN RN jb4 Fredrick Kemp Marcus, DO ms3 Janki Hudson RN RN vc1 Radha Krishna rv1 Juanito Sapp MD MD sp4 Jaycee Simpson RN RN cm10 Jose Jeffers RN RN rg5 Corrections: (The following items were deleted from the chart) 09/28 21:13 20:49 BP 150 / 60; Pulse 117bpm; Resp 19bpm; Pulse Ox 100%; Temp 99.3F Oral; Pain 0/10, rg5 Adult; rg5
[2024-09-29] MEDS ORDERED: ALBUMIN HUMAN 25% 100 ML IV ONE ×2 (00:37→00:49)
[2024-09-29] MEDS ORDERED: NA CHLORIDE 0.9% 1,000 ML ONE (01:08)
[2024-09-29 01:30] LABS: SARS-CoV-2 Antigen CONTROL BLUE LINE VIS/BG OK; SARS-CoV-2 Antigen Rapid Res Negative (Negative)
[2024-09-29 01:46] VITALS: TEMP 101
[2024-09-29 01:53] VITALS: BP 113/60; O2SAT 96
== END 2024-09-29 01:38 ==
LOC: ER 18:24
DX: B17.9 Acute viral hepatitis, unspecified (principal); R65.20 Severe sepsis without septic shock; C22.1 Intrahepatic bile duct carcinoma; I10 Essential (primary) hypertension; Z11.52 Encounter for screening for COVID-19
CPT/HCPCS: 93005; 87040 ×2; 85025; 81001; 36415; 87205 ×4; 85610; 83605 ×2; 85730; 80053; 70450; 74176; 71045; 87811; P9047 ×2; J7050; J7030 ×3

== ENCOUNTER 2025-08-09 10:53 | Inpatient (IN) | payer OTHER ==
--- OUTSIDE RECORDS SUMMARY | 2025-08-09 11:20 | XMS REPORT | Clinical Summary ---
Author Name Unknown Organization [facility] Address [address] [place] [address] Care Team Providers Care Magento Web Developer Name Role Phone Al Carrasco MD Unavailable Unavailable Dashawn Sutherland MD Primary Care Provider [phone] Ynes RUBI MD, William J Unavailable [phone] Rashida Rico MD Unavailable [phone] Eugene Martinez MD Unavailable Liborio Adam MD Unavailable [phone] Elisha Louise MD Unavailable César Morales MD Unavailable [phone] Elisha Louise MD Unavailable [phone] Allergies Active Allergy Reactions Criticality Noted Date Comments Morphine Anaphylaxis,Other (S ee Comments),Shortness Of Breath High 11/21/2015 Hypotention Sulfur Nausea And Vomiting High 12/08/2023 Medications * This document contains information received from the source organization and may not represent a complete record from that organization. latanoprost (XALATAN) 0.005% ophthalmic solution Administer 1 drop to both eyes daily. 023 Active tamsulosin (FLOMAX) 0.4 mg 24 hr capsule Take 1 capsule (0.4 mg) by mouth daily. Active ezetimibe (ZETIA) 10 mg tablet Take 1 tablet (10 mg) by mouth at bedtime. Active aspirin 81 mg chewable tabletIndications:C oronary artery disease due to calcified coronary lesion Chew 1 tablet (81 mg) daily. Active lidocaine-prilocain e (EMLA) 2.5-2.5% creamIndications:Ch olangiocarcinoma of biliary tract, NOS APPLY LIDOCAINE TO PORT 30 MINUTES BEFORE ACCESS 30 g Active Additional Information Patient not taking.Reported on 07/25/2025 levothyroxine (Synthroid) 125 mcg tabletIndications:H ypothyroidism due to medicament Take 1 tablet (125 mcg) by mouth daily. 30 tablet 11 Active Additional Information Patient taking differently: 175 mcgoral Daily, Reason: Not effective, Informant: Spouse/Significant Other, Reported on 07/25/2025 metoprolol tartrate (LOPRESSOR) 50 mg tabletIndications:S epsis without septic shock Take 0.5 tablets (25 mg) by mouth twice daily. Active Additional Information Patient taking differently: 50 mgoral 2 times daily, Reason: Not effective, Reported on 07/25/2025 multivitamin tab tabletIndications:S epsis without septic shock Take 1 tablet by mouth daily. Active MAGNESIUM GLYCINATE ORAL Take by mouth daily. Active antiox #8/om3/dha/epa/lut/ zeax (PRESERVISION AREDS 2, OMEGA-3, ORAL) Take by mouth daily. Active blood-glucose sensor (FreeStyle Keshawn 3 Plus Sensor) kitIndications:Type 2 diabetes mellitus with hyperglycemia Use to monitor BG, replace every 14 days 2 kit 11 Active Tradjenta 5 mg tab TAKE 1 TABLET BY MOUTH EVERY DAY Active mirtazapine (REMERON) 7.5 mg tablet TAKE 1 TABLET BY MOUTH EVERYDAY AT BEDTIME Active zinc sulfate (Zinc-220) 220 mg capsuleIndications: Taste sense altered Take 1 capsule (220 mg) by mouth twice daily. 60 capsule Active Additional Information Patient taking differently:220 mg oralDaily, 50 mg, Reason: Not effective, Reported on 07/25/2025 ondansetron (Zofran) 8 mg tabletIndications:C holangiocarcinoma Take 1 tablet (8 mg) by mouth every 8 (eight) hours as needed for nausea or vomiting. (First Choice) 30 tablet 5 Active Additional Information Patient not taking.Reported on 07/25/2025 prochlorperazine (Compazine) 10 mg tabletIndications:C holangiocarcinoma Take 1 tablet (10 mg) by mouth every 6 (six) hours as needed for nausea or vomiting. (Second Choice) 60 tablet 5 Active Additional Information Patient not taking.Reported on 07/25/2025 UNABLE TO FIND Take 1 tablet by mouth daily. Med Name: [facility] Magnesium (from 1000 mg of Magtein® Magnesium L-Threonate): 72 mg, Cognizin® Citicoline: 250 mg Active DULoxetine (CYMBALTA) 30 mg capsuleIndications: Cholangiocarcinoma, Neuropathic pain TAKE 1 CAPSULE (30 MG) BY MOUTH DAILY FOR 60 DAYS. 60 capsule 025 2024 Active metoprolol tartrate (LOPRESSOR) 50 mg tablet Take 1 tablet (50 mg) by mouth daily. 023 2023 Discontinued(R eorder) losartan (COZAAR) 100 mg tablet Take 1 tablet (100 mg) by mouth daily. Taking 50mg am/ and 50mg at night 023 2023 Discontinued(S top Taking at Discharge) glimepiride (AMARYL) 2 mg tablet Take 2 tablets (4 mg) by mouth twice daily. 024 2023 Discontinued(R eorder) simvastatin (ZOCOR) 20 mg tablet Take 1 tablet (20 mg) by mouth at bedtime. 2024 Discontinued(T herapy completed) pantoprazole (Protonix) 40 mg EC tabletIndications:U pper gastrointestinal bleeding,Melena Take 1 tablet (40 mg) by mouth 2 (two) times a day before meals. 180 tablet 024 2023 Discontinued(S top Taking at Discharge) levothyroxine (SYNTHROID, LEVOTHROID) 100 mcg tabletIndications:H ypothyroidism, not otherwise specified Take 1 tablet (100 mcg) by mouth daily. 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 30 tablet 11 024 2024 Discontinued sodium chloride (NS) 0.9% flush syringe 10 mLIndications:Chola ngiocarcinoma of biliary tract, NOS Inject 10 mL (1 syringe) into each lumen of central venous catheter daily as directed. 30 each 6 06/07/20 24 1:02 PM CDT 024 2023 Discontinued(S top Taking at Discharge) zinc oxide-cod liver oil (DESITIN) 40% pste [...] 1 07/08/20 24 10:23 AM CDT 024 2023 Discontinued(S top Taking at Discharge) NIFEdipine (PROCARDIA XL) 30 mg 24 hr [...] is less than 120 30 tablet 07/08/20 24 10:23 AM CDT 2023 Discontinued(S top Taking at Discharge) traMADol (Ultram) 50 mg tabletIndications:P ostoperative pain Take 1 tablet (50 mg) by mouth every 8 (eight) hours as needed for moderate pain. 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 120 capsule 2023 Discontinued(R eorder) clobetasol (TEMOVATE) 0.05% creamIndications:Ch olangiocarcinoma,It leticia Apply topically to affected area(s) twice daily. 30 g 2024 Discontinued ascorbic acid, vitamin C, (vitamin C) 100 mg tablet Take 10 tablets (1,000 mg) by mouth daily. 2024 Discontinued glimepiride (AMARYL) 2 mg tabletIndications:T ype 2 diabetes mellitus with hyperglycemia Take 2 tablets (4 mg) by mouth every morning before breakfast. 2024 Discontinued folic acid (FOLVITE) 1 mg tabletIndications:S epsis without septic shock Take 1 tablet (1 mg) by mouth daily. 30 tablet 2024 Discontinued amoxicillin-clavula simona (Augmentin) 875 mg-125 mg per tabletIndications:S epsis without septic shock Take 1 tablet (875 mg) by mouth twice daily for 23 days. 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 30 capsule 1 024 2024 Discontinued valACYclovir (Valtrex) 1000 mg tabletIndications:O ral herpes simplex infection Take 1 tablet (1,000 mg) by mouth twice daily for 7 days. 14 tablet 024 2023 amoxicillin-clavula simona (Augmentin) 875 mg-125 mg per tabletIndications:A cute cholangitis,Liver abscess due to cholangitis Take 1 tablet (875 mg) by mouth twice daily for 14 days. 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 30 capsule 1 025 2024 Discontinued(O ther/Not Applicable) FreeStyle Keshawn 3 Plus Sensor kit APPLY 1 SENSER CHANGE EVERY 14 DAYS 30 DAYS 025 2024 Discontinued DULoxetine (Cymbalta) 30 mg capsuleIndications: Cholangiocarcinoma Take 1 capsule (30 mg) by mouth daily for 60 days. 60 capsule 025 2024 Discontinued berberine chloride 500 mg cap Take 2 tablets by mouth daily. 2024 Discontinued glimepiride (AMARYL) 4 mg tablet Take 1 tablet (4 mg) by mouth twice daily. 2024 Discontinued zinc gluconate 50 mg tablet Take 1 tablet (50 mg) by mouth daily. 2024 Discontinued UNABLE TO FIND Med Name: PREVagen 2024 Discontinued DULoxetine (CYMBALTA) 30 mg capsuleIndications: Cholangiocarcinoma TAKE 1 CAPSULE (30 MG) BY MOUTH DAILY FOR 60 DAYS. 60 capsule 2024 Discontinued(R eorder) potassium citrate (UROCIT-K) 10 mEq SR tablet Take by mouth. 2024 Discontinued Stella,rhamn-B.long -zinc-selen (Probio Defense) 2 billion cell- 2 mg-12.5 mcg cap Take by mouth. 2024 Discontinued benzonatate (TESSALON) 100 mg capsule Take 1 capsule (100 mg) by mouth. 2024 Discontinued sodium chloride (NS) 0.9% flush syringe 10 mLIndications:Chola ngiocarcinoma Inject 10 mL (1 syringe) into each lumen of central venous catheter daily as directed. 30 each 04/28/20 11:49 AM CDT 2024 Discontinued heparin, PF, 100 units/mL injectionIndication s:Cholangiocarcinom a Inject 2 ml (200 units) into each lumen of central venous catheter daily as directed. Discard excess volume to administer 2 mL. 30 each 04/28/20 11:49 AM CDT 2024 Discontinued ondansetron (Zofran) 8 mg tabletIndications:C holangiocarcinoma Take 1 tablet (8 mg) by mouth every 8 (eight) hours as needed for nausea or vomiting (First Choice). 30 tablet 2024 Discontinued prochlorperazine (Compazine) 10 mg tabletIndications:C holangiocarcinoma Take 1 tablet (10 mg) by mouth every 6 (six) hours as needed for nausea or vomiting (second choice). 60 tablet 2024 Discontinued loperamide (IMODIUM) 2 mg capsuleIndications: Cholangiocarcinoma 2 caps po for the first stool, then 1 caps q2 hours until diarrhea free for 12 hours. May take 2 caps q4 hours at night (first choice) 100 capsule 2024 Discontinued diphenoxylate-atrop ine (LomotiL) 2.5 mg-0.025 mg per tabletIndications:C holangiocarcinoma Take 1-2 tablets by mouth every 6 (six) hours as needed for diarrhea (or loose stool (second choice)). Not to exceed 8 tablets per day 60 tablet 5 025 2024 Discontinued vitamin E, dl,tocopheryl acet, (vitamin E, acetate,) 400 units capsule Take by mouth. 2024 Discontinued DULoxetine (CYMBALTA) 30 mg capsuleIndications: Cholangiocarcinoma, Neuropathic pain Take 1 capsule (30 mg) by mouth daily for 60 days. 60 capsule 025 2024 Discontinued levoFLOXacin (LEVAQUIN) 750 mg tabletIndications:F ever, not otherwise specified Take 1 tablet (750 mg) by mouth daily for 7 days. 7 tablet 07/14/20 12:17 PM CDT 025 2024 Active Problems Patient Care Coordination No te Formatting of this note migh t be different from the original. Patient tested positive for COVID on 05/05/24. R/S'd chemo to 05/19/2024 Problem Noted Date Diagnosed Date Neutropenia 07/14/2025 Hypomagnesemia 07/13/2025 Assessment & Plan (07/13/2025 5:19 PM CDT): Replaced. Repeat labs in a.m. 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 Pending hemoglobin A1c - Resume home medication Tradjenta -Insulin sliding scale -Monitor blood glucose 4 times daily and at bedtime Current use of insulin 10/07/2024 Fever 10/06/2024 Assessment & Plan (07/13/2025 5:19 PM CDT): Tmax 38.9 in clinic. No leukocytosis, lactic acidosis, anion gap noted. Procalcitonin 0.33. Pending urine, blood culture. Respiratory panel, chest x-ray negative. - Continue cefepime started in ED. 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 Repeat labs in a.m. Atherosclerotic heart diseas e of [place] coronary artery with unstable angina pectoris 10/01/2024 Bsldm-pj-ncauoad renal failure 09/30/2024 Prerenal renal failure 09/30/2024 Adenocarcinoma, NOS of prostate gland 09/30/2024 Acute metabolic acidosis 09/29/2024 Acute kidney failure with tubular necrosis 09/29 Abnormal liver function 09/29/2024 Acute cholangitis 09/29/2024 Fever with chills 09/29/2024 Hyperbilirubinemia 09/29/2024 Leukocytosis 09/29/2024 Acute non-ischemic myocardial injury 09/29/2024 History of percutaneous coronary intervention Diverticulitis 07/29/2024 Atherosclerosis of coronary artery bypass graft without angina pectoris 07/28/2024 Abscess 07/28/2024 Liver enzymes level above reference range 2023 Sepsis without septic shock 07/04/2024 Fever with rigors 07/04/2024 Calculus of kidney and ureter 05/28/2024 Malnutrition of moderate degree 05/27/2024 Dieulafoy lesion of duodenum 05/26/2024 Upper gastrointestinal bleeding 05/25/2024 Antineoplastic chemotherapy induced anemia 05/19 Assessment & Plan (07/13/2025 5:19 PM CDT): H&H 7.4/22.2. Platelets 150. Patient denies any active bleeding. Pending 1 unit PRBC transfusion. Continue to monitor Acute posthemorrhagic anemia 05/16/2024 Bacteremia caused by Gram-negative bacteria 04/18 Hematuria 05/13/2024 Nephrolithiasis 05/13/2024 History of insertion of stent into ureter 2023 COVID-19 05/13/2024 Pancytopenia 05/13/2024 Coronary artery disease due to calcified coronar y lesion 05/13/2024 Hypertension 05/13/2024 Assessment & Plan (07/13/2025 5:19 PM CDT): Blood pressure is currently stable. 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 Date Type Department Care Team Description 5 10:15 AM CDT Infusion [facility] - Infusion [address] [place] [address] 4[address] [place] [address] Dashawn Sutherland MD Gulimlim, Fernando J, RN Cholangiocarcinoma (Primary Dx) 5 Travel 5 1:30 PM CDT Telemedicine [facility] - Medical Oncology [address] [place] [phone] Marbella Pereira PA Cholangiocarcinoma (Primary Dx) 5 9:45 AM CDT Infusion [facility] - Infusion [address] [place] [address] Dashawn Sutherland MD Powell, Melissa M, RN Cholangiocarcinoma (Primary Dx) 5 9:00 AM CDT Follow-Up [facility] - Medical Oncology [address] [place] [address] Marbella Pereira PA Hu, Zishuo Ian, MD Cholangiocarcinoma 5 Orders Only [facility] Main [facility], 7th [place] [address] Dashawn Sutherland MD 5 Travel 5 3:00 PM CDT Follow-Up [facility] [address] [place] [address], 9th [place] [address] ThTania esacleraa ANNAMARIA Reddy Jerrin E, APRN Febrile neutropenia (Primary Dx); Fever, not otherwise specified; Antineoplastic chemotherapy induced anemia 5 12:55 PM CDT - 5 11:59 PM CDT Hospital Encounter [facility] [address] [place] [address] ThoppilTaniaa ANA ROSA ReddyN Fever, not otherwise specified Discharge Disposition: Home 5 4:00 PM CDT Telemedicine [facility] [address] [place] [address], 9th [place] [address] ThwilderpilTaniaa Barry, Therese Johnson APRN Fever, not otherwise specified (Primary Dx); Antineoplastic chemotherapy induced anemia 5 9:00 AM CDT Infusion [facility]fusion [address] [place] [address] 4[address] [place] [address] Dashawn Sutherland MD Brioso, Cecille, TORREY Cholangiocarcinoma (Primary Dx); Neutropenia, not otherwise specified 5 Telephone MD [facility] - Genitourinary Oncology [address] [place] [address] Angela Levin RN 5 Orders Only [facility] [address] [place] [address], 7th [place] [address] Marbella Pereira PA 5 Orders Only [facility] [place] [facility]cology [address] [place] [address] Marbella Pereira PA 5 Travel 5 3:00 PM CDT Telemedicine [facility] [address] [place] [address], 9th [place] [address] SimonepiDaphne mackay P, LOADER OPERATOR/GROUND LEADER Fever, not otherwise specified 5 Telephone [facility] [address] [place] [address] Derrick Whelan V, RN MSN Discharge Call 5 9:15 AM CDT - 5 11:38 AM CDT [facility] [address] [place] [address] Main Bldg, 1st Floor near [facility] [place] [id number] Kristine Gomez MD Neutropenia (Primary Dx); Biliary cancer Discharge Disposition: Home 5 Telephone [facility] [address] [place] [address] Main Bldg, 9th Floor Elevator [place] [phone] Sweetie Aburto S, LOADER OPERATOR/GROUND LEADER 5 Telephone [facility] [address] [place] [address] Main dg, 9th [place] [address] Cecilia Vaughn RN 5 Orders Only [facility] Oncology [address] [place] [address] Marbella Pereira PA Cholangiocarcinoma (Primary Dx) 5 Orders Only [facility] [address] [place] [address] Main Bldg, 7th [place] [address] Zarina Hillman Kathi Cholangiocarcinoma (Primary Dx); Neutropenia, not otherwise specified 5 Orders Only [facility] Oncology [address] [place] [address] Marbella Pereira PA 5 12:24 PM CDT - 5 12:09 PM CDT Hospital Encounter MAIN [address] [place] [address] Hafsa Lance MD Cruz Carreras, Maria T, MD Elsayem, Ahmed, MD Febrile neutropenia (Primary Dx); Antineoplastic chemotherapy induced anemia; Hypomagnesemia; Hypophosphatemia; Fever, not otherwise specified Discharge Disposition: Home 5 7:45 AM CDT Infusion [facility] - Infusion [address] [place] [address] Marbella Pereira PA Philipose, Glory J, RN Cholangiocarcinoma (Primary Dx) 5 Travel 5 Orders Only [facility] [address] [place] [address] Main Bldg, 7th [place] [address] Marbella Pereira PA 5 Travel 5 9:00 AM CDT Infusion [facility] - Infusion [address] [place] [address] Dashawn Sutherland MD Cholangiocarcinoma 5 Orders Only [facility] Oncology [address] [place] [address] Marbella Pereira PA Cholangiocarcinoma (Primary Dx) 5 Telephone [facility] Oncology [address] [place] [address] Angela Levin RN 5 Orders Only [facility] Oncology [address] [place] [address] Marbella Pereira PA Cholangiocarcinoma (Primary Dx) 5 Travel 5 9:30 AM CDT Telemedicine [facility] Oncology [address] [place] [address] Dashawn Sutherland MD Cholangiocarcinoma (Primary Dx) 5 Orders Only [facility] Oncology [address] [place] [address] Marbella Pereira PA 5 Orders Only [facility] [address] [place] [address] Main Bldg, 7th [place] [address] Yessy De Leon [facility] Cholangiocarcinoma (Primary Dx) 5 11:45 AM CDT Infusion [facility] - Infusion [address] [place] [address] Dashawn Sutherland MD Powell, Melissa M, RN Cholangiocarcinoma (Primary Dx) 5 Travel 5 Orders Only [facility] [address] [place] [address] Main Bldg, 7th [place] [address] Dashawn Sutherland MD 5 Orders Only [facility] Oncology [address] [place] [phone] Marbella Pereira PA Cholangiocarcinoma (Primary Dx) 5 2:00 PM CDT Follow-Up [facility] Oncology [address] [place] [address] Dashawn Sutherland MD Cholangiocarcinoma 5 11:05 AM CDT Ancillary Procedure [address] [address] Dashawn Sutherland MD Cholangiocarcinoma 5 Travel 5 Orders Only [facility] [address] [place] [address] Main Bldg, 7th [place] [address] Marbella Pereira PA Cholangiocarcinoma (Primary Dx) 5 8:30 AM CDT Infusion [facility] - Infusion [address] [place] [address] Dashawn Sutherland MD Alegado, Reynaldo F Jr., RN Cholangiocarcinoma (Primary Dx) 5 Travel 5 2:30 PM CDT Telemedicine [facility] Oncology [address] [place] [address] Marbella Pereira PA Cholangiocarcinoma 5 Orders Only [facility] [address] [place] [address] Main Bldg, 7th [place] [address] Marbella Pereira PA 5 8:30 AM CDT Infusion [facility] - Infusion [address] [place] [address] 4[address] [place] [address] Marbella Pereira PA Achord, Angela M, RN Cholangiocarcinoma (Primary Dx) 5 Orders Only [facility] Oncology [address] [place] [address] Marbella Pereira PA 5 Travel 5 Telephone [facility] Oncology [address] [place] [address] Angela Levin RN 5 Orders Only [facility] [address] [place] [address], 7th [place] [address] Marbella Pereira PA 5 11:30 AM CDT Telemedicine [facility] Oncology [address] [place] [address] Dashawn Sutherland MD Cholangiocarcinoma (Primary Dx) 5 Orders Only [facility] [address] [place] [address], 7th [place] [address] Dashawn Sutherland MD Cholangiocarcinoma (Primary Dx) 5 3:00 PM CDT Telemedicine [facility] [address] [place] [address], 7th [place] [address] Al Quick IV, MD Calculus of kidney and ureter (Primary Dx) 5 4:00 PM CDT Telemedicine [facility] [address] [place] [address], 6th [place] [address] Gabbi Werner APRN Type 2 diabetes mellitus with hyperglycemia (Primary Dx) 5 11:00 AM CDT Telemedicine [facility] Oncology [address] [place] [address] Marbella Pereira PA Cholangiocarcinoma 5 Telephone [facility] [address] [place] [address], 6th [place] [address] Hannah Nicholson, TORREY Appointment (Wants different day VV with Gabbi) 5 Orders Only [facility] [address] [place] [address], 7th [place] [address] Ney Sierra, [facility] 5 10:00 AM CDT Follow-Up [facility] [address] [place] [address], [facility] [place] [address] Eugene Martinez MD Type 2 diabetes mellitus with hyperglycemia (Primary Dx); 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 5 10:00 AM CDT Infusion [facility] - Infusion [address] [place] [address] Marbella Pereira PA Monroe, Celine M, RN Cholangiocarcinoma (Primary Dx) 5 Travel [address] [address] Sofía Watson MA 5 Orders Only [facility] [address] [place] [address], 7th [place] [address] Dashawn Sutherland MD Cholangiocarcinoma (Primary Dx) 5 Orders Only [facility] - Medical Oncology [address] [place] [address] Marbella Pereira PA Cholangiocarcinoma (Primary Dx) 5 10:30 AM CDT Follow-Up [facility] - Medical Oncology [address] [place] [address] Dashawn Sutherland MD Cholangiocarcinoma (Primary Dx) 5 Results Follow-Up [facility] [address] [place] [address], 6th [place] [address] Gabbi Werner APRN Hemoglobin A1c, Basic Metabolic Panel- Total Calcium 5 Travel 5 Refill [place] [facility] [place] [facility] [address] [place] [address] Dashawn Sutherland MD Cholangiocarcinoma 5 Telephone [facility] - Cardiology [address] [place] [address] Dashawn Sutherland MD 5 11:55 AM CDT Ancillary Procedure [facility] [address] [address] Dashawn Sutherland MD Cholangiocarcinoma 5 9:15 AM CDT Infusion MD [facility] [address] [place] [address] Marbella Pereira PA [place], Alyssa D RN Cholangiocarcinoma (Primary Dx) 5 Telephone [facility] [address] Main Bldg, 7th [place] [address] Marbella Pereira PA 5 Orders Only [facility] [address]g, 7th [place] [address] Marbella Pereira PA 5 Travel 5 Orders Only [facility] [address], 6th [place] [address] Gabbi Werner APRN Type 2 diabetes mellitus with hyperglycemia (Primary Dx); 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 5 Orders Only [facility] [address] Main Bldg, 7th [place] [address] Marbella Pereira PA 5 Orders Only [facility] [address] Main Bldg, 7th [place] [address] Dashawn Sutherlnad MD 5 Orders Only [facility] [address] Main Bldg, 7th [place] [address] Marbella Pereira PA Cholangiocarcinoma (Primary Dx) 5 Refill [facility] Oncology [address] [place] [address] Dashawn Sutherland MD Cholangiocarcinoma 5 9:15 AM CDT Infusion [facility] - Infusion [address] [place] [address] Marbella Pereira PA Abarquez, Marlon Perceval O, RN Cholangiocarcinoma (Primary Dx) 5 Travel 5 11:30 AM CDT Telemedicine [facility] Oncology [address] [place] [address] Dashawn Sutherland MD Cholangiocarcinoma 5 10:30 AM CDT Infusion [facility] - Infusion [address] [place] [address] Dashawn Sutherland MD Sullivan, Paula F, RN Cholangiocarcinoma (Primary Dx) 5 Travel 5 Documentation [facility] [address] Main Bldg, 6th [place] [address] Garland Dimple L 5 Documentation [facility] [address] Main Bldg, 6th [place] [address] Garland Dimple L 5 11:00 AM INFORMATION TECHNOLOGY ACCOUNT MANAGER Follow-Up [facility] Oncology [address] [place] [address] Dashawn Sutherland MD Cholangiocarcinoma (Primary Dx) 5 Orders Only [facility] [address] Main Bldg, 7th [place] [address] Dashawn Sutherland MD 5 Orders Only [facility] Oncology [address] [place] [address] Marbella Pereira PA Cholangiocarcinoma (Primary Dx) 5 Travel 5 10:45 AM INFORMATION TECHNOLOGY ACCOUNT MANAGER Infusion [facility] - Infusion [address] [place] [address], [place] [address] Marbella Pereira PA Pierce, Alyssa O, RN Cholangiocarcinoma (Primary Dx) 5 6:35 AM INFORMATION TECHNOLOGY ACCOUNT MANAGER Ancillary Procedure [address] [address] Marbella Pereira PA Cholangiocarcinoma 5 Orders Only [facility] - Medical Oncology [address] [place] [address] Marbella Pereira PA Cholangiocarcinoma (Primary Dx) 5 Travel 5 10:45 AM INFORMATION TECHNOLOGY ACCOUNT MANAGER Infusion [facility] - Infusion [address] [place] [address] Marbella Pereira PA Abarquez, Marlon Perceval O, RN Cholangiocarcinoma (Primary Dx) 5 9:30 AM INFORMATION TECHNOLOGY ACCOUNT MANAGER Follow-Up [facility] Medical Oncology [address] [place] [address] Dashawn Sutherland MD Cholangiocarcinoma (Primary Dx) 5 Orders Only [facility] [address] [place] [address] Main dg, 7th [place] [address] Dashawn Sutherland MD 5 Travel 5 Orders Only [facility] - Medical Oncology [address] [place] [address] Marbella Pereira PA 4 9:30 AM INFORMATION TECHNOLOGY ACCOUNT MANAGER Infusion [facility] - Infusion [address] [place] [address], [place] [address] Marbella Pereira PA Alegado, Reynaldo F Jr., RN Cholangiocarcinoma (Primary Dx) 4 Travel 4 Orders Only [facility] 1515 [facility] Main Bldg, 7th [place] [address] Dashawn Sutherland MD 4 Orders Only [facility] [address] [place] [address] Main Bldg, 7th [place] [address] Mattie Borrero MD 4 Orders Only [facility] Oncology [address] [place] [address] Marbella Pereira PA Cholangiocarcinoma (Primary Dx) 4 6:50 AM INFORMATION TECHNOLOGY ACCOUNT MANAGER Ancillary Procedure [address] 2nd [place] [address] Kori Kemp PA Acute cholangitis; Liver abscess due to cholangitis 4 Travel 4 1:00 PM INFORMATION TECHNOLOGY ACCOUNT MANAGER Follow-Up [facility] [address] [place] [address] Main dg, 9th [place] [address] Kori Kemp PA Ahmed, Christy, APRN Oral herpes simplex infection (Primary Dx); Acute cholangitis; Liver abscess due to cholangitis 4 9:00 AM INFORMATION TECHNOLOGY ACCOUNT MANAGER Telemedicine [facility] Oncology [address] [place] [address] Dashawn Sutherland MD Cholangiocarcinoma (Primary Dx) 4 Travel 4 11:30 AM INFORMATION TECHNOLOGY ACCOUNT MANAGER Follow-Up [facility] Oncology [address] [place] [address] Dashawn Sutherland MD Cholangiocarcinoma 4 Documentation [facility] [address] [place] [address] Main Bldg, 6th [place] [address] Dimple Haque 4 Travel 4 Orders Only [facility] Medical Oncology [address] [place] [address] Nasrin Root, LOADER OPERATOR/GROUND LEADER 4 Orders Only [facility] [address] [place] [address] Main Bldg, 9th [place] [address] Kori Kemp PA Acute cholangitis (Primary Dx); Liver abscess due to cholangitis 4 4:14 PM INFORMATION TECHNOLOGY ACCOUNT MANAGER Anesthesia Event Main Interventional Radiology [address] [place] [address] Pavilion Bldg, 3rd [place] [address] Breanna Steward MD Zhai, Xiaodong, CRNA 4 1:23 PM INFORMATION TECHNOLOGY ACCOUNT MANAGER Anesthesia Event [facility] [address] [place] [address] Main Bldg, 5th [place] [address] Minerva Taylor MD Lewis, Brandon Asher [facility] 4 11:39 AM INFORMATION TECHNOLOGY ACCOUNT MANAGER - 4 1:19 PM INFORMATION TECHNOLOGY ACCOUNT MANAGER [facility] [address] [place] [address] Main dg, 5th [place] [address] Jaziel Zapata MD ENDOSCOPIC RETROGRADE CHOLANGIOPANCREATOGRAPHY WITH PLACEMENT OF STENT OF BILE DUCT 4 8:10 PM INFORMATION TECHNOLOGY ACCOUNT MANAGER Ancillary Procedure [facility] [address] [place] [address] Dashawn Sutherland MD 4 8:05 PM INFORMATION TECHNOLOGY ACCOUNT MANAGER Ancillary Procedure [facility] [address] [place] [address] Dashawn Sutherland MD 4 8:00 PM INFORMATION TECHNOLOGY ACCOUNT MANAGER Ancillary Procedure [facility] [address] [place] [address] Dashawn Sutherland MD 4 2:37 AM INFORMATION TECHNOLOGY ACCOUNT MANAGER - 4 2:08 PM INFORMATION TECHNOLOGY ACCOUNT MANAGER Hospital Encounter MAIN [address] [place] [address] Brian Mancilla MD Amoateng, Magdelene, MD Senechalle Sibille, Michelle, MD Mohammed, Brenda Nugent MD Fever with chills (Primary Dx); Hyperbilirubinemia; Leukocytosis; Dkjhb-[id number]-dtjugfu renal failure; Cholangiocarcinoma; Hypoglycemia, not otherwise specified; Acute cholangitis; Abnormal liver function; Liver enzymes level above reference range; Fever presenting with conditions classified elsewhere; Sepsis without septic shock; Bacteremia caused by Gram-negative bacteria; Malnutrition of moderate degree; Other abnormalities of gait and mobility; Difficulty in walking; Liver cell carcinoma; Type 2 diabetes mellitus with hyperglycemia; Liver abscess due to cholangitis Discharge Disposition: Home 4 Travel 4 8:45 AM INFORMATION TECHNOLOGY ACCOUNT MANAGER Infusion MD [facility] [address] [place] [address] Marbella Pereira PA Brioso, Cecille, RN Cholangiocarcinoma (Primary Dx) 4 Travel 4 12:45 PM CDT Consult [facility]ocrine [facility] [address] [place] [address], 6th [place] [address] Eugene Martinez MD Type 2 diabetes mellitus with hyperglycemia (Primary Dx); Cholangiocarcinoma of biliary tract, NOS; 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 4 Orders Only MD [facility] Oncology [address] [place] [address] Marbella Pereira PA Cholangiocarcinoma of biliary tract, NOS; 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 4 9:23 AM CDT - 4 11:59 PM CDT Hospital Encounter [facility] [address] [place] [address] Bonnie Oneill APRN Cholangiocarcinoma; Type 2 diabetes mellitus with hyperglycemia Discharge Disposition: Home 4 7:58 AM CDT - 4 9:22 AM CDT Hospital Encounter [facility] [address] [place] [address], 1st [place] [address] Rashida Rico MD Cholangiocarcinoma Discharge Disposition: Home 4 Refill MD [facility] Medical Oncology [address] [place] [address] Marbella Pereira PA Cholangiocarcinoma of biliary tract, NOS; 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 4 Orders Only [facility] [address] [facility] Main Bldg, 1st [place] [address] Bonnie Oneill APRN Cholangiocarcinoma (Primary Dx) 4 Travel 4 11:00 AM CDT Infusion [facility] - Infusion [address] [place] [address] Marbella Pereira PA Beckford, Tiffany A, RN Cholangiocarcinoma (Primary Dx) 4 9:30 AM CDT Follow-Up [facility] - Medical Oncology [address] [place] [address] Dashawn Sutherland MD Cholangiocarcinoma (Primary Dx) 4 6:15 AM CDT Ancillary Procedure [address] 2nd [place] [address] Marbella Pereira PA Cholangiocarcinoma 4 Orders Only [facility] [address] [place] [address] Main Bldg, 7th [place] [address] Dashawn Sutherland MD 4 Travel 4 11:30 AM CDT - 4 11:59 PM CDT Hospital Encounter [facility]iation Oncology [address] [place] [address] Main Bldg, 7th [place] [address] Marbella Pereira PA Noticewala, Sonal Suresh, MD Cholangiocarcinoma (Primary Dx) Discharge Disposition: Home 4 11:00 AM CDT Telemedicine MD [facility] Medical Oncology [address] [place] [address] Dashawn Sutherland MD Cholangiocarcinoma 4 Travel after 08/09/2024 Immunizations Immunization Administration Dates Next Due Influenza Split Preservative Free ID 08/17/2024 Surgical History Surgery Date Site/Laterality Comments COLONOSCOPY 2019 Clear CORONARY ARTERY BYPASS GRAFT 2013 URETERAL STENT PLACEMENT Right CORONARY ANGIOPLASTY WITH ST ENT PLACEMENT 4 x2 CHOLECYSTECTOMY 3 CATARACT EXTRACTION EXTRACAPSULAR W/ INTRAOCULAR LENS IMPLANTATION 11/17/2022 - 3 Bilateral 08/2023 and 10/2023 BILE DUCT STENT PLACEMENT 4 metal stent MA ESOPHAGOGASTRODUODENOSCOP Y TRANSORAL DIAGNOSTIC 05/21/2024 Esophagus/N/A Procedure: DIAGNOSTIC UPPER GASTROINTESTINAL ENDOSCOPY; Surgeon: Lizbet Magana MD; Location: MAIN ENDOSCOPY; Service: GASTROENTEROLOGY MA COLONOSCOPY FLX DX W/DEEPAK J SPEC WHEN PFRMD 05/21/2024 N/A Procedure: DIAGNOSTIC FLEXIBLE COLONOSCOPY PROXIMAL TO SPLENIC FLEXURE; Surgeon: Lizbet Magana MD; Location: MAIN ENDOSCOPY; Service: GASTROENTEROLOGY MA ESOPHAGOGASTRODUODENOSCOP Y TRANSORAL DIAGNOSTIC 05/27/2024 Esophagus/N/A Procedure: DIAGNOSTIC UPPER GASTROINTESTINAL ENDOSCOPY; Surgeon: Alan Griffith MD; Location: MAIN ENDOSCOPY; Service: GASTROENTEROLOGY MA GI TRC IMG INTRALUMINAL ESOPHAGUS-ILEUM W/I&R 05/27/2024 N/A Procedure: INTRALUMINAL GASTROINTESTINAL TRACT IMAGING OF ESOPHAGUS THROUGH ILEUM; Surgeon: Alan Griffith MD; Location: MAIN ENDOSCOPY; Service: GASTROENTEROLOGY MA GI TRC IMG INTRALUMINAL ESOPHAGUS-ILEUM W/I&R 05/27/2024 N/A Procedure: READING FOR INTRALUMINAL GASTROINTESTINAL TRACT IMAGING OF ESOPHAGUS THROUGH ILEUM; Surgeon: Alan Griffith MD; Location: MAIN ENDOSCOPY; Service: GASTROENTEROLOGY MA CYSTO W/URETEROSCOPY W/RMVL/MANJ STONES 06/19/2024 Ureter/Right Procedure: CYSTOURETHROSCOPY WITH URETEROROSCOPY &/OR PYELOSCOPY, W/ REMOVAL/MANIPULATION OF CALCULUS; Surgeon: Al Quick IV, MD; Location: MAIN OR; Service: UROLOGY Medical devices from this surgery are in the Medical Devices section. MA CYSTO W/URETEROSCOPY W/LITHOTRIPSY 06/19/2024 Ureter/Right Procedure: CYSTOURETHROSCOPY WITH URETEROROSCOPY &/OR PYELOSCOPY, W/ LITHOTRIPSY; Surgeon: Al Quick IV, MD; Location: MAIN OR; Service: UROLOGY Medical devices from this surgery are in the Medical Devices section. MA INSJ TUNNELED CTR VAD W/S UBQ PORT AGE 5 YR/> 07/26/2024 Neck/Left Procedure: PORT-A-CATH PLACEMENT; Surgeon: Jac Craig MD; Location: [facility]; Service: SURG ONC - PORT Medical devices from this surgery are in the Medical Devices section. MA FLUORO CENTRAL VENOUS ACC ESS DEV PLACEMENT 07/26/2024 Neck/Left Procedure: FLUORO GUIDANCE FOR CENTRAL VENOUS ACCESS DEVICE PLACEMENT, REPLACEMENT, OR REMOVAL; Surgeon: Jac Craig MD; Location: [facility]; Service: SURG ONC - PORT Medical devices from this surgery are in the Medical Devices section. MA US VASC ACCESS SITS VSL PATENCY NDL ENTRY 07/26/2024 Chest/Left Procedure: US GUIDANCE WITH EVAL OF POTENTIAL ACCESS SITES, REALTIME US VISUALIZATION OF VASC NEEDLE ENTRY; Surgeon: Jac Craig MD; Location: [facility]; Service: SURG ONC - PORT Medical devices from this surgery are in the Medical Devices section. MA ERCP STENT PLACEMENT BILIARY/PANCREATIC DUCT N/A Procedure: ENDOSCOPIC RETROGRADE CHOLANGIOPANCREATOGRAPHY WITH PLACEMENT OF STENT OF BILE DUCT; Surgeon: Jaziel Zapata MD; Location: MAIN ENDOSCOPY; Service: GASTROENTEROLOGY Medical devices from this surgery are in the Medical Devices section. Medical History Medical History Date Comments Myocardial infarction 10/2013 Hyperlipidemia 2010 Hearing loss 2010 Wears hearing ai ds 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 Sexual dysfunction 2017 Malignant neoplasm of prostate 2016 Squamous cell carcinoma in situ of skin 2019 Basal cell carcinoma of skin 2019 Anticoagulant therapy Myocardial infarction 02/2024 mild heart attack, no residual effect Prediabetes Cholangiocarcinoma Essential (primary) hypertension Neuropathy Hypothyroidism Stented coronary artery 03/10/2024 Coronary bypass graft finding Encounter for blood transfusion Sleep apnea CPAP nightly Diabetes mellitus Type 2 diabetes mellitus wit h hyperglycemia 10/07/2024 Family History Medical History Relation Name Comments [...] on file Legal Sex Male 8:23 AM INFORMATION TECHNOLOGY ACCOUNT MANAGER Gender Identity Not on file Sexual Orientation Not on file Travel History Travel Start Travel End [place] 09/11/2024 09/14/2024 Obstetrics History Last Filed Vital Signs Vital Sign Reading Time Taken Comments Blood Pressure 156/84 08/08/2025 2:30 PM CDT Pulse 80 08/08/2025 2:30 PM CDT Temperature 37 °C (98.6 °F) 08/08/2025 2:30 PM CDT Respiratory Rate 18 08/08/2025 2:30 PM CDT Oxygen Saturation 96% 08/08/2025 2:30 PM CDT Inhaled Oxygen Concentration - - Weight 71.5 kg (157 lb 10.1 oz) 025 10:53 AM CDT Height 162.5 cm (5' 3.98") 07/25/2025 1 0:09 AM CDT Body Mass Index 27.08 07/25/2025 10:09 AM CDT Plan of Treatment Upcoming Encounters Date Type Department Care Team (Late st Contact Info) Description 08/17/2025 1:30 PM CDT Telemedicine [facility] Oncology [address] [place] [address] Marbella Pereira PA [address] [place] [address] [email or web address] 08/22/2025 8:45 AM CDT Lab MD [facility] [address] [place] [address] Marbella Pereira PA [address] [place] [address] [email or web address] 08/22/2025 10:15 AM CDT Infusion MD [facility] - Infusion [address] [place] [address] 4[address] [place] [address] Marbella Pereira PA [address] [place] [address] [email or web address] 09/05/2025 8:00 AM CDT Lab MD [facility] - [facility] [address] [facility] 1st [place] [address] Marbella Pereira PA [address] [place] [address] [email or web address] 09/05/2025 9:00 AM CDT Infusion MD [facility]fusion [address] [place] [address] Marbella Pereira PA [address] [place] [address] [email or web address] Health Maintenance Due Date Last Done Comments Pneumococcal Vaccine: 50+ Ye ars (1 of 2 - PCV) 1964 11/17/2014 COVID-19 Vaccine (3 - Moderna risk series) 01/23/2021 12/26/2020, 11/29/2020 Influenza Vaccine (#1) 2025 08/17/2024 Medical Devices Implanted Type Area Medical Billing Coder Device Identifier Shelf Expiration Date Model / Serial / Lot Port Implinfn Powerport Clrvu - Sn/A Implanted:Qty: 1 on 07/26/2024 by Jac Craig MD at [facility] Port Left: Internal Jugular [employer] [id number] 04/16/2025 [id number] / N/A / [id number] Description:CATHETER LENGTH- 27 CM Cardiac Stent Stent Description:Per MD [facility] policy conditional Biliary Stent-01/14/2024 Implanted:2023 (Quantity not on file) Stent Bile Duct Description:[facility]aced in 0[facility] at [facility], Per in ok to proceed up to 3T on normal operating mode. Cleared on 01/16/24 @4:20pm Stent Ureteral Firm 6fr X 24cm - Sn/A Implanted:Qty: 1 on 06/19/2024 by Al Quick IV, MD at [facility] Stent Right: Ureter [employer] 12/01/2026 [id number] / N/A / [id number] Description:https://www.Ready To Travel/products/uro_ufh_webds/ https://ifu.Next University/data/IFU_PDF/T_USS_REV5.PDF Page 4 1.5T/3T 1600 gauss 2W/kg CHRISTINE in Normal Operating Mode Wallflex Biliary Rx Covered 10x60 - [id number] Implanted:Qty: 1 on 09/30/2024 by Jaziel Zapata MD at [facility] Stent Bile Duct Contact At Once! [id number] 07/29/2026 [id number] / [id number] / [id number] Wallflex Biliary Rx Covered Description:https://www.HSTYLE.Winkcam/content/dam/Ubiq Mobilescientific/endo/p ortfo yanci-group/kbrbvvwc-fd-owgklfc-stents/wallflexbiliary_dfu.pdf Through non-clinical testing, the covered WallFlex Biliary RX Stent has been shown to be MR Conditional (poses no known hazards under specified conditions). The conditions are as follows: Field strengths of 3 Melanie and 1.5 Melanie Static magnetic field gradient < 30 T/m Product of static magnetic field and static magnetic field gradient < 90 T2/m A rate of change of magnetic field (dB/dt) approximately 60 T/s or less along the axis of the cylindrical bore. (This criteria is met for cylindrical bore MR systems with gradient slew rate of 200 T/m/s or less.) Normal operating mode of the MR system and use of transmit/receive head coil and/or whole body transmit coils Procedures Procedure Name Priority Date/Time Associated Diagnosis Comments DIFFERENTIAL Routine 08/08/2025 8:51 AM CDT Cholangiocarcinoma .CBC Routine 08/08/2025 8:51 AM CDT Cholangiocarcinoma CARBOHYDRATE ANTIGEN 19-9 Routine 2024 8:51 AM CDT Cholangiocarcinoma COMPREHENSIVE METABOLIC PANEL Routine 08/08/2025 8:51 AM CDT Cholangiocarcinoma COMPLETE BLOOD COUNT W/ DIFFERENTIAL Routine 08/08/2025 8:51 AM CDT Cholangiocarcinoma .CBC Routine 07/25/2025 8:37 AM CDT Cholangiocarcinoma CARBOHYDRATE ANTIGEN 19-9 Routine 2024 8:37 AM CDT Cholangiocarcinoma COMPREHENSIVE METABOLIC PANEL Routine 07/25/2025 8:37 AM CDT Cholangiocarcinoma COMPLETE BLOOD COUNT W/ DIFFERENTIAL Routine 07/25/2025 8:37 AM CDT Cholangiocarcinoma FREE THYROXINE Routine 07/25/2025 8:37 AM CDT Cholangiocarcinoma THYROID STIMULATING HORMONE Routine 07/25/2025 8:37 AM CDT Cholangiocarcinoma DIFFERENTIAL Routine 07/20/2025 1:16 PM CDT Fever, not otherwise specified .CBC Routine 07/20/2025 1:16 PM CDT Fever, not otherwise specified CREATININE Routine 07/20/2025 1:16 PM CDT Fever, not otherwise specified COMPLETE BLOOD COUNT W/ DIFFERENTIAL Routine 07/20/2025 1:16 PM CDT Fever, not otherwise specified DIFFERENTIAL Routine 07/19/2025 9:25 AM CDT Cholangiocarcinoma .CBC Routine 07/19/2025 9:25 AM CDT Cholangiocarcinoma CARBOHYDRATE ANTIGEN 19-9 Routine 2024 9:25 AM CDT Cholangiocarcinoma COMPREHENSIVE METABOLIC PANEL Routine 07/19/2025 9:25 AM CDT Cholangiocarcinoma COMPLETE BLOOD COUNT W/ DIFFERENTIAL Routine 07/19/2025 9:25 AM CDT Cholangiocarcinoma BLOOD CULTURE Routine 07/16/2025 10:24 AM CDT DIFFERENTIAL Routine 07/16/2025 9:44 AM CDT .CBC Routine 07/16/2025 9:44 AM CDT APTT Routine 07/16/2025 9:44 AM CDT PROTHROMBIN TIME Routine 07/16/2025 9:44 AM CDT PHOSPHORUS LEVEL Routine 07/16/2025 9:44 AM CDT MAGNESIUM LEVEL Routine 07/16/2025 9:44 AM CDT COMPREHENSIVE METABOLIC PANEL Routine 07/16/2025 9:44 AM CDT COMPLETE BLOOD COUNT W/ DIFFERENTIAL Routine 07/16/2025 9:44 AM CDT BLOOD CULTURE Routine 07/16/2025 9:44 AM CDT POC GLUCOSE SCREEN Routine 07/14/2025 8: 11 AM CDT URINALYSIS WITH MICROSCOPIC IF INDICATED Routine 07/14/2025 2:23 AM CDT URINALYSIS WITH MICROSCOPIC IF INDICATED Routine 07/14/2025 2:23 AM CDT URINE CULTURE Routine 07/14/2025 2:23 AM CDT DIFFERENTIAL Routine 07/14/2025 2:13 AM CDT .CBC Routine 07/14/2025 2:13 AM CDT PHOSPHORUS LEVEL Routine 07/14/2025 2:13 AM CDT MAGNESIUM LEVEL Routine 07/14/2025 2:13 AM CDT BASIC METABOLIC PANEL, CALCIUM TOTAL Routine 07/14/2025 2:13 AM CDT COMPLETE BLOOD COUNT W/ DIFFERENTIAL Routine 07/14/2025 2:13 AM CDT POC GLUCOSE SCREEN Routine 07/13/2025 10:09 PM CDT POC GLUCOSE SCREEN Routine 07/13/2025 7: 09 PM CDT TRANSFUSE RED BLOOD CELLS Routine 2024 2:15 PM CDT PREPARE RBC Routine 07/13/2025 1:38 PM CDT POC VENOUS BLOOD GAS + LACTATE Routine 07/13/2025 12:54 PM CDT BLOOD CULTURE Routine 07/13/2025 12:54 PM CDT RESPIRATORY MULTIPLEX PCR PANEL, NASOPHARYNGEAL SWAB Routine 07/13/2025 12:53 PM CDT DIFFERENTIAL Routine 07/13/2025 12:41 PM CDT .CBC Routine 07/13/2025 12:41 PM CDT COMPLETE BLOOD COUNT W/ DIFFERENTIAL Routine 07/13/2025 12:41 PM CDT HC PROCALCITONIN (PCT) Routine 12:41 PM CDT PHOSPHORUS LEVEL Routine 07/13/2025 12:41 PM CDT MAGNESIUM LEVEL Routine 07/13/2025 12:41 PM CDT COMPREHENSIVE METABOLIC PANEL Routine 07/13/2025 12:41 PM CDT BLOOD CULTURE Routine 07/13/2025 12:41 PM CDT XR CHEST 1 VW STAT 07/13/2025 12:35 PM CDT TRANSFUSE RED BLOOD CELLS Routine 2024 8:55 AM CDT Cholangiocarcinoma PREPARE RBC Routine 07/12/2025 7:29 PM CDT PREPARE RBC Routine 07/12/2025 7:28 PM CDT TYPE AND SCREEN Routine 07/12/2025 9:28 AM CDT Cholangiocarcinoma .CBC Routine 07/11/2025 8:57 AM CDT Cholangiocarcinoma CARBOHYDRATE ANTIGEN 19-9 Routine 2024 8:57 AM CDT Cholangiocarcinoma COMPREHENSIVE METABOLIC PANEL Routine 07/11/2025 8:57 AM CDT Cholangiocarcinoma COMPLETE BLOOD COUNT W/ DIFFERENTIAL Routine 07/11/2025 8:57 AM CDT Cholangiocarcinoma FREE THYROXINE Routine 07/11/2025 8:57 AM CDT Cholangiocarcinoma THYROID STIMULATING HORMONE Routine 07/11/2025 8:57 AM CDT Cholangiocarcinoma .CBC Routine 06/28/2025 11:06 AM CDT Cholangiocarcinoma CARBOHYDRATE ANTIGEN 19-9 Routine 2024 11:06 AM CDT Cholangiocarcinoma COMPREHENSIVE METABOLIC PANEL Routine 06/28/2025 11:06 AM CDT Cholangiocarcinoma COMPLETE BLOOD COUNT W/ DIFFERENTIAL Routine 06/28/2025 11:[address] CHEST ABDOMEN PELVIS W WO CONTRAST Routine 06/20/2025 12:26 PM CDT Cholangiocarcinoma .CBC Routine 06/20/2025 10:27 AM CDT Cholangiocarcinoma CARBOHYDRATE ANTIGEN 19-9 Routine 2024 10:27 AM CDT Cholangiocarcinoma COMPREHENSIVE METABOLIC PANEL Routine 06/20/2025 10:27 AM CDT Cholangiocarcinoma COMPLETE BLOOD COUNT W/ DIFFERENTIAL Routine 06/20/2025 10:27 AM CDT Cholangiocarcinoma .CBC Routine 06/14/2025 9:02 AM CDT Cholangiocarcinoma TYPE AND SCREEN Routine 06/14/2025 9:02 AM CDT Cholangiocarcinoma ADRENOCORTICOTROPIC HORMONE Routine 06/14/2025 9:02 AM CDT Cholangiocarcinoma CORTISOL, TOTAL Routine 06/14/2025 9:02 AM CDT Cholangiocarcinoma FREE THYROXINE Routine 06/14/2025 9:02 AM CDT Cholangiocarcinoma FREE T3 Routine 06/14/2025 9:02 AM CDT Cholangiocarcinoma THYROID STIMULATING HORMONE Routine 06/14/2025 9:02 AM CDT Cholangiocarcinoma CARBOHYDRATE ANTIGEN 19-9 Routine 2024 9:02 AM CDT Cholangiocarcinoma COMPREHENSIVE METABOLIC PANEL Routine 06/14/2025 9:02 AM CDT Cholangiocarcinoma COMPLETE BLOOD COUNT W/ DIFFERENTIAL Routine 06/14/2025 9:02 AM CDT Cholangiocarcinoma .CBC Routine 05/31/2025 8:12 AM CDT Cholangiocarcinoma CARBOHYDRATE ANTIGEN 19-9 Routine 2024 8:12 AM CDT Cholangiocarcinoma COMPREHENSIVE METABOLIC PANEL Routine 05/31/2025 8:12 AM CDT Cholangiocarcinoma COMPLETE BLOOD COUNT W/ DIFFERENTIAL Routine 05/31/2025 8:12 AM CDT Cholangiocarcinoma .CBC Routine 04/27/2025 9:21 AM CDT Cholangiocarcinoma CARBOHYDRATE ANTIGEN 19-9 Routine 2024 9:21 AM CDT Cholangiocarcinoma COMPREHENSIVE METABOLIC PANEL Routine 04/27/2025 9:21 AM CDT Cholangiocarcinoma COMPLETE BLOOD COUNT W/ DIFFERENTIAL Routine 04/27/2025 9:21 AM CDT Cholangiocarcinoma .CBC Routine 04/20/2025 1:00 PM CDT Cholangiocarcinoma CARBOHYDRATE ANTIGEN 19-9 Routine 2024 1:00 PM CDT Cholangiocarcinoma COMPREHENSIVE METABOLIC PANEL Routine 04/20/2025 1:00 PM CDT Cholangiocarcinoma COMPLETE BLOOD COUNT W/ DIFFERENTIAL Routine 04/20/2025 1:00 PM CDT Cholangiocarcinoma FREE THYROXINE Routine 04/20/2025 10:02 AM CDT 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 THYROID STIMULATING HORMONE Routine 04/20/2025 10:02 AM CDT 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 HEMOGLOBIN A1C Routine 04/20/2025 10:02 AM CDT Type 2 diabetes mellitus with hyperglycemia BASIC METABOLIC PANEL, CALCIUM TOTAL Routine 04/20/2025 10:02 AM CDT Type 2 diabetes mellitus with hyperglycemia CT CHEST ABDOMEN PELVIS W WO CONTRAST Routine 04/05/2025 2:10 PM CDT Cholangiocarcinoma POC CREATININE Routine 04/05/2025 1:31 PM CDT .CBC Routine 04/04/2025 9:09 AM CDT Cholangiocarcinoma CARBOHYDRATE ANTIGEN 19-9 Routine 2024 9:09 AM CDT Cholangiocarcinoma FREE THYROXINE Routine 04/04/2025 9:09 AM CDT Cholangiocarcinoma THYROID STIMULATING HORMONE Routine 04/04/2025 9:09 AM CDT Cholangiocarcinoma COMPLETE BLOOD COUNT W/ DIFFERENTIAL Routine 04/04/2025 9:09 AM CDT Cholangiocarcinoma COMPREHENSIVE METABOLIC PANEL Routine 04/04/2025 9:09 AM CDT Cholangiocarcinoma GALECTIN 3 Routine 04/04/2025 9:09 AM CDT Cholangiocarcinoma .CBC Routine 03/07/2025 9:11 AM CDT Cholangiocarcinoma CARBOHYDRATE ANTIGEN 19-9 Routine 2024 9:11 AM CDT Cholangiocarcinoma FREE THYROXINE Routine 03/07/2025 9:11 AM CDT Cholangiocarcinoma THYROID STIMULATING HORMONE Routine 03/07/2025 9:11 AM CDT Cholangiocarcinoma COMPLETE BLOOD COUNT W/ DIFFERENTIAL Routine 03/07/2025 9:11 AM CDT Cholangiocarcinoma COMPREHENSIVE METABOLIC PANEL Routine 03/07/2025 9:11 AM CDT Cholangiocarcinoma GALECTIN 3 Routine 03/07/2025 9:11 AM CDT Cholangiocarcinoma .CBC Routine 02/07/2025 10:05 AM CDT Cholangiocarcinoma PROSTATE SPECIFIC ANTIGEN Routine 2024 10:05 AM CDT Cholangiocarcinoma HEMOGLOBIN A1C Routine 02/07/2025 10:05 AM CDT Cholangiocarcinoma CARBOHYDRATE ANTIGEN 19-9 Routine 2024 10:05 AM CDT Cholangiocarcinoma FREE THYROXINE Routine 02/07/2025 10:05 AM CDT Cholangiocarcinoma THYROID STIMULATING HORMONE Routine 02/07/2025 10:05 AM CDT Cholangiocarcinoma COMPLETE BLOOD COUNT W/ DIFFERENTIAL Routine 02/07/2025 10:05 AM CDT Cholangiocarcinoma COMPREHENSIVE METABOLIC PANEL Routine 02/07/2025 10:05 AM CDT Cholangiocarcinoma GALECTIN 3 Routine 02/07/2025 10:[address] CHEST ABDOMEN PELVIS W WO CONTRAST Routine 01/10/2025 8:20 AM INFORMATION TECHNOLOGY ACCOUNT MANAGER Cholangiocarcinoma HEMOGLOBIN A1C Add-On 01/10/2025 6:45 AM INFORMATION TECHNOLOGY ACCOUNT MANAGER Cholangiocarcinoma .CBC Routine 01/10/2025 6:45 AM INFORMATION TECHNOLOGY ACCOUNT MANAGER Cholangiocarcinoma CARCINOEMBRYONIC ANTIGEN Routine 025 6:45 AM INFORMATION TECHNOLOGY ACCOUNT MANAGER Cholangiocarcinoma CARBOHYDRATE ANTIGEN 19-9 Routine 2024 6:45 AM INFORMATION TECHNOLOGY ACCOUNT MANAGER Cholangiocarcinoma FREE THYROXINE Routine 01/10/2025 6:45 AM INFORMATION TECHNOLOGY ACCOUNT MANAGER Cholangiocarcinoma THYROID STIMULATING HORMONE Routine 01/10/2025 6:45 AM INFORMATION TECHNOLOGY ACCOUNT MANAGER Cholangiocarcinoma COMPLETE BLOOD COUNT W/ DIFFERENTIAL Routine 01/10/2025 6:45 AM INFORMATION TECHNOLOGY ACCOUNT MANAGER Cholangiocarcinoma COMPREHENSIVE METABOLIC PANEL Routine 01/10/2025 6:45 AM INFORMATION TECHNOLOGY ACCOUNT MANAGER Cholangiocarcinoma GALECTIN 3 Routine 01/10/2025 6:45 AM INFORMATION TECHNOLOGY ACCOUNT MANAGER Cholangiocarcinoma .CBC Routine 12/13/2024 9:59 AM INFORMATION TECHNOLOGY ACCOUNT MANAGER Cholangiocarcinoma CARCINOEMBRYONIC ANTIGEN Routine 025 9:59 AM INFORMATION TECHNOLOGY ACCOUNT MANAGER Cholangiocarcinoma CARBOHYDRATE ANTIGEN 19-9 Routine 2024 9:59 AM INFORMATION TECHNOLOGY ACCOUNT MANAGER Cholangiocarcinoma FREE THYROXINE Routine 12/13/2024 9:59 AM INFORMATION TECHNOLOGY ACCOUNT MANAGER Cholangiocarcinoma THYROID STIMULATING HORMONE Routine 12/13/2024 9:59 AM INFORMATION TECHNOLOGY ACCOUNT MANAGER Cholangiocarcinoma COMPLETE BLOOD COUNT W/ DIFFERENTIAL Routine 12/13/2024 9:59 AM INFORMATION TECHNOLOGY ACCOUNT MANAGER Cholangiocarcinoma COMPREHENSIVE METABOLIC PANEL Routine 12/13/2024 9:59 AM INFORMATION TECHNOLOGY ACCOUNT MANAGER Cholangiocarcinoma GALECTIN 3 Routine 12/13/2024 9:59 AM INFORMATION TECHNOLOGY ACCOUNT MANAGER Cholangiocarcinoma .CBC Routine 11/16/2024 9:09 AM INFORMATION TECHNOLOGY ACCOUNT MANAGER Cholangiocarcinoma CARCINOEMBRYONIC ANTIGEN Routine 024 9:09 AM INFORMATION TECHNOLOGY ACCOUNT MANAGER Cholangiocarcinoma CARBOHYDRATE ANTIGEN 19-9 Routine 2023 9:09 AM INFORMATION TECHNOLOGY ACCOUNT MANAGER Cholangiocarcinoma FREE THYROXINE Routine 11/16/2024 9:09 AM INFORMATION TECHNOLOGY ACCOUNT MANAGER Cholangiocarcinoma THYROID STIMULATING HORMONE Routine 11/16/2024 9:09 AM INFORMATION TECHNOLOGY ACCOUNT MANAGER Cholangiocarcinoma COMPLETE BLOOD COUNT W/ DIFFERENTIAL Routine 11/16/2024 9:09 AM INFORMATION TECHNOLOGY ACCOUNT MANAGER Cholangiocarcinoma COMPREHENSIVE METABOLIC PANEL Routine 11/16/2024 9:09 AM INFORMATION TECHNOLOGY ACCOUNT MANAGER Cholangiocarcinoma GALECTIN 3 Routine 11/16/2024 9:09 AM INFORMATION TECHNOLOGY ACCOUNT MANAGER Cholangiocarcinoma CT ABDOMEN PELVIS W CONTRAST Routine 11/05/2024 8:46 AM INFORMATION TECHNOLOGY ACCOUNT MANAGER Acute cholangitis Liver abscess due to cholangitis POC GLUCOSE SCREEN Routine 10/10/2024 7:44 AM INFORMATION TECHNOLOGY ACCOUNT MANAGER .CBC Routine 10/10/2024 5:44 AM INFORMATION TECHNOLOGY ACCOUNT MANAGER COMPLETE BLOOD COUNT W/ DIFFERENTIAL Routine 10/10/2024 5:44 AM INFORMATION TECHNOLOGY ACCOUNT MANAGER COMPREHENSIVE METABOLIC PANEL Routine 10/10/2024 5:44 AM INFORMATION TECHNOLOGY ACCOUNT MANAGER PHOSPHORUS LEVEL Routine 10/10/2024 5:44 AM INFORMATION TECHNOLOGY ACCOUNT MANAGER MAGNESIUM LEVEL Routine 10/10/2024 5:44 AM INFORMATION TECHNOLOGY ACCOUNT MANAGER POC GLUCOSE SCREEN Routine 10/09/2024 6: 03 PM INFORMATION TECHNOLOGY ACCOUNT MANAGER POC GLUCOSE SCREEN Routine 10/09/2024 1: 52 PM INFORMATION TECHNOLOGY ACCOUNT MANAGER POC GLUCOSE SCREEN Routine 10/09/2024 9: 15 AM INFORMATION TECHNOLOGY ACCOUNT MANAGER .CBC Routine 10/09/2024 6:13 AM INFORMATION TECHNOLOGY ACCOUNT MANAGER COMPLETE BLOOD COUNT W/ DIFFERENTIAL Routine 10/09/2024 6:13 AM INFORMATION TECHNOLOGY ACCOUNT MANAGER COMPREHENSIVE METABOLIC PANEL Routine 10/09/2024 6:13 AM INFORMATION TECHNOLOGY ACCOUNT MANAGER PHOSPHORUS LEVEL Routine 10/09/2024 6:13 AM INFORMATION TECHNOLOGY ACCOUNT MANAGER MAGNESIUM LEVEL Routine 10/09/2024 6:13 AM INFORMATION TECHNOLOGY ACCOUNT MANAGER EKG, 12-LEAD (PORTABLE) STAT 10/09/2024 POC GLUCOSE SCREEN Routine 10/08/2024 7: 49 AM INFORMATION TECHNOLOGY ACCOUNT MANAGER .CBC Routine 10/08/2024 6:05 AM INFORMATION TECHNOLOGY ACCOUNT MANAGER COMPLETE BLOOD COUNT W/ DIFFERENTIAL Routine 10/08/2024 6:05 AM INFORMATION TECHNOLOGY ACCOUNT MANAGER COMPREHENSIVE METABOLIC PANEL Routine 10/08/2024 6:05 AM INFORMATION TECHNOLOGY ACCOUNT MANAGER PHOSPHORUS LEVEL Routine 10/08/2024 6:05 AM INFORMATION TECHNOLOGY ACCOUNT MANAGER MAGNESIUM LEVEL Routine 10/08/2024 6:05 AM INFORMATION TECHNOLOGY ACCOUNT MANAGER TYPE AND SCREEN Routine 10/08/2024 6:04 AM INFORMATION TECHNOLOGY ACCOUNT MANAGER POC GLUCOSE SCREEN Routine 10/07/2024 9: 37 PM INFORMATION TECHNOLOGY ACCOUNT MANAGER POC GLUCOSE SCREEN Routine 10/07/2024 5: 14 PM INFORMATION TECHNOLOGY ACCOUNT MANAGER POC GLUCOSE SCREEN Routine 10/07/2024 1: 09 PM INFORMATION TECHNOLOGY ACCOUNT MANAGER POC GLUCOSE SCREEN Routine 10/07/2024 9: 24 AM INFORMATION TECHNOLOGY ACCOUNT MANAGER DIRECT AND INDIRECT BILIRUBIN Routine 10/07/2024 4:55 AM INFORMATION TECHNOLOGY ACCOUNT MANAGER .CBC Routine 10/07/2024 4:55 AM INFORMATION TECHNOLOGY ACCOUNT MANAGER COMPLETE BLOOD COUNT W/ DIFFERENTIAL Routine 10/07/2024 4:55 AM INFORMATION TECHNOLOGY ACCOUNT MANAGER COMPREHENSIVE METABOLIC PANEL Routine 10/07/2024 4:55 AM INFORMATION TECHNOLOGY ACCOUNT MANAGER PHOSPHORUS LEVEL Routine 10/07/2024 4:55 AM INFORMATION TECHNOLOGY ACCOUNT MANAGER MAGNESIUM LEVEL Routine 10/07/2024 4:55 AM INFORMATION TECHNOLOGY ACCOUNT MANAGER POC GLUCOSE SCREEN Routine 10/06/2024 11:00 PM INFORMATION TECHNOLOGY ACCOUNT MANAGER POC GLUCOSE SCREEN Routine 10/06/2024 8: 44 PM INFORMATION TECHNOLOGY ACCOUNT MANAGER POC GLUCOSE SCREEN Routine 10/06/2024 6: 00 PM INFORMATION TECHNOLOGY ACCOUNT MANAGER IR US FLUID ASPIRATION 75 Routine 2023 5:08 PM INFORMATION TECHNOLOGY ACCOUNT MANAGER Liver cell carcinoma IR US GUIDED BIOPSY LIVER 60 Routine 10/06/2024 5:08 PM INFORMATION TECHNOLOGY ACCOUNT MANAGER Liver cell carcinoma AFB SMEAR Routine 10/06/2024 4:59 PM INFORMATION TECHNOLOGY ACCOUNT MANAGER AFB CULTURE W/ SMEAR - PERFORMABLE Routine 10/06/2024 4:59 PM INFORMATION TECHNOLOGY ACCOUNT MANAGER FUNGAL CULTURE W/ SMEAR Routine 10/06/20 4:59 PM INFORMATION TECHNOLOGY ACCOUNT MANAGER TISSUE/FNA CULTURE W/ GRAM STAIN Routine 10/06/2024 4:59 PM INFORMATION TECHNOLOGY ACCOUNT MANAGER ANAEROBIC CULTURE Routine 10/06/2024 4:5 9 PM INFORMATION TECHNOLOGY ACCOUNT MANAGER AFB CULTURE W/ SMEAR Routine 10/06/2024 4:59 PM INFORMATION TECHNOLOGY ACCOUNT MANAGER PATHOLOGY BIOPSY INTERPRETATION Routine 10/06/2024 4:42 PM INFORMATION TECHNOLOGY ACCOUNT MANAGER Fever with chills Hyperbilirubinemia Leukocytosis [id number] renal failure Cholangiocarcinoma Hypoglycemia, not otherwise specified Acute cholangitis Abnormal liver function Liver enzymes level above reference range Fever presenting with conditions classified elsewhere Sepsis without septic shock Bacteremia caused by Gram-negative bacteria Malnutrition of moderate degree Other abnormalities of gait and mobility Difficulty in walking Liver cell carcinoma POC GLUCOSE SCREEN Routine 10/06/2024 3: 41 PM INFORMATION TECHNOLOGY ACCOUNT MANAGER OSMOLALITY URINE Routine 10/06/2024 11:58 AM INFORMATION TECHNOLOGY ACCOUNT MANAGER CREATININE URINE, RANDOM Routine 024 11:58 AM INFORMATION TECHNOLOGY ACCOUNT MANAGER SODIUM URINE Routine 10/06/2024 11:58 AM INFORMATION TECHNOLOGY ACCOUNT MANAGER HC URINALYSIS AUTO W MICROSCOPY Routine 10/06/2024 11:58 AM INFORMATION TECHNOLOGY ACCOUNT MANAGER URINE CULTURE Routine 10/06/2024 11:58 AM INFORMATION TECHNOLOGY ACCOUNT MANAGER TRANSFUSE RED BLOOD CELLS Routine 2023 11:30 AM INFORMATION TECHNOLOGY ACCOUNT MANAGER PREPARE RBC Routine 10/06/2024 8:11 AM INFORMATION TECHNOLOGY ACCOUNT MANAGER POC GLUCOSE SCREEN Routine 10/06/2024 8: 03 AM INFORMATION TECHNOLOGY ACCOUNT MANAGER DIRECT AND INDIRECT BILIRUBIN Routine 10/06/2024 5:43 AM INFORMATION TECHNOLOGY ACCOUNT MANAGER .CBC Routine 10/06/2024 5:43 AM INFORMATION TECHNOLOGY ACCOUNT MANAGER COMPLETE BLOOD COUNT W/ DIFFERENTIAL Routine 10/06/2024 5:43 AM INFORMATION TECHNOLOGY ACCOUNT MANAGER COMPREHENSIVE METABOLIC PANEL Routine 10/06/2024 5:43 AM INFORMATION TECHNOLOGY ACCOUNT MANAGER PHOSPHORUS LEVEL Routine 10/06/2024 5:43 AM INFORMATION TECHNOLOGY ACCOUNT MANAGER MAGNESIUM LEVEL Routine 10/06/2024 5:43 AM INFORMATION TECHNOLOGY ACCOUNT MANAGER POC GLUCOSE SCREEN Routine 10/05/2024 11:32 PM INFORMATION TECHNOLOGY ACCOUNT MANAGER POC GLUCOSE SCREEN Routine 10/05/2024 6: 45 PM INFORMATION TECHNOLOGY ACCOUNT MANAGER POC GLUCOSE SCREEN Routine 10/05/2024 1: 21 PM INFORMATION TECHNOLOGY ACCOUNT MANAGER PROTHROMBIN TIME Routine 10/05/2024 9:57 AM INFORMATION TECHNOLOGY ACCOUNT MANAGER POC GLUCOSE SCREEN Routine 10/05/2024 8: 41 AM INFORMATION TECHNOLOGY ACCOUNT MANAGER DIFFERENTIAL Routine 10/05/2024 5:29 AM INFORMATION TECHNOLOGY ACCOUNT MANAGER DIRECT AND INDIRECT BILIRUBIN Routine 10/05/2024 5:29 AM INFORMATION TECHNOLOGY ACCOUNT MANAGER .CBC Routine 10/05/2024 5:29 AM INFORMATION TECHNOLOGY ACCOUNT MANAGER COMPLETE BLOOD COUNT W/ DIFFERENTIAL Routine 10/05/2024 5:29 AM INFORMATION TECHNOLOGY ACCOUNT MANAGER COMPREHENSIVE METABOLIC PANEL Routine 10/05/2024 5:29 AM INFORMATION TECHNOLOGY ACCOUNT MANAGER PHOSPHORUS LEVEL Routine 10/05/2024 5:29 AM INFORMATION TECHNOLOGY ACCOUNT MANAGER MAGNESIUM LEVEL Routine 10/05/2024 5:29 AM INFORMATION TECHNOLOGY ACCOUNT MANAGER TYPE AND SCREEN Routine 10/05/2024 5:29 AM INFORMATION TECHNOLOGY ACCOUNT MANAGER HC URINALYSIS ROUTINE Routine 10/05/2024 3:04 AM INFORMATION TECHNOLOGY ACCOUNT MANAGER URINE CULTURE Routine 10/05/2024 3:04 AM INFORMATION TECHNOLOGY ACCOUNT MANAGER POC GLUCOSE SCREEN Routine 10/04/2024 11:03 PM INFORMATION TECHNOLOGY ACCOUNT MANAGER BLOOD CULTURE STAT 10/04/2024 9:33 PM INFORMATION TECHNOLOGY ACCOUNT MANAGER BLOOD CULTURE STAT 10/04/2024 9:15 PM INFORMATION TECHNOLOGY ACCOUNT MANAGER OSCILLATORY PEP Routine 10/04/2024 8:00 PM INFORMATION TECHNOLOGY ACCOUNT MANAGER POC GLUCOSE SCREEN Routine 10/04/2024 4: 54 PM INFORMATION TECHNOLOGY ACCOUNT MANAGER POC GLUCOSE SCREEN Routine 10/04/2024 2: 09 PM INFORMATION TECHNOLOGY ACCOUNT MANAGER OSCILLATORY PEP Routine 10/04/2024 2:00 PM INFORMATION TECHNOLOGY ACCOUNT MANAGER CT ABDOMEN PELVIS W CONTRAST Routine 10/04/2024 12:31 PM INFORMATION TECHNOLOGY ACCOUNT MANAGER POC GLUCOSE SCREEN Routine 10/04/2024 8: 19 AM INFORMATION TECHNOLOGY ACCOUNT MANAGER OSCILLATORY PEP Routine 10/04/2024 8:00 AM INFORMATION TECHNOLOGY ACCOUNT MANAGER POC GLUCOSE SCREEN Routine 10/04/2024 4: 28 AM INFORMATION TECHNOLOGY ACCOUNT MANAGER DIRECT AND INDIRECT BILIRUBIN Routine 10/04/2024 4:17 AM INFORMATION TECHNOLOGY ACCOUNT MANAGER .CBC Routine 10/04/2024 4:17 AM INFORMATION TECHNOLOGY ACCOUNT MANAGER COMPLETE BLOOD COUNT W/ DIFFERENTIAL Routine 10/04/2024 4:17 AM INFORMATION TECHNOLOGY ACCOUNT MANAGER COMPREHENSIVE METABOLIC PANEL Routine 10/04/2024 4:17 AM INFORMATION TECHNOLOGY ACCOUNT MANAGER PHOSPHORUS LEVEL Routine 10/04/2024 4:17 AM INFORMATION TECHNOLOGY ACCOUNT MANAGER MAGNESIUM LEVEL Routine 10/04/2024 4:17 AM INFORMATION TECHNOLOGY ACCOUNT MANAGER POC GLUCOSE SCREEN Routine 10/03/2024 10:35 PM INFORMATION TECHNOLOGY ACCOUNT MANAGER POC GLUCOSE SCREEN Routine 10/03/2024 8: 21 PM INFORMATION TECHNOLOGY ACCOUNT MANAGER OSCILLATORY PEP Routine 10/03/2024 8:00 PM INFORMATION TECHNOLOGY ACCOUNT MANAGER POC GLUCOSE SCREEN Routine 10/03/2024 5: 04 PM INFORMATION TECHNOLOGY ACCOUNT MANAGER POC GLUCOSE SCREEN Routine 10/03/2024 2: 10 PM INFORMATION TECHNOLOGY ACCOUNT MANAGER OSCILLATORY PEP Routine 10/03/2024 2:00 PM INFORMATION TECHNOLOGY ACCOUNT MANAGER OSCILLATORY PEP Routine 10/03/2024 10:01 AM INFORMATION TECHNOLOGY ACCOUNT MANAGER OSCILLATORY PEP Routine 10/03/2024 10:01 AM INFORMATION TECHNOLOGY ACCOUNT MANAGER OSCILLATORY PEP Routine 10/03/2024 10:01 AM INFORMATION TECHNOLOGY ACCOUNT MANAGER POC GLUCOSE SCREEN Routine 10/03/2024 9: 30 AM INFORMATION TECHNOLOGY ACCOUNT MANAGER DIRECT AND INDIRECT BILIRUBIN Routine 10/03/2024 5:07 AM INFORMATION TECHNOLOGY ACCOUNT MANAGER .CBC Routine 10/03/2024 5:07 AM INFORMATION TECHNOLOGY ACCOUNT MANAGER COMPLETE BLOOD COUNT W/ DIFFERENTIAL Routine 10/03/2024 5:07 AM INFORMATION TECHNOLOGY ACCOUNT MANAGER COMPREHENSIVE METABOLIC PANEL Routine 10/03/2024 5:07 AM INFORMATION TECHNOLOGY ACCOUNT MANAGER PHOSPHORUS LEVEL Routine 10/03/2024 5:07 AM INFORMATION TECHNOLOGY ACCOUNT MANAGER MAGNESIUM LEVEL Routine 10/03/2024 5:07 AM INFORMATION TECHNOLOGY ACCOUNT MANAGER POC GLUCOSE SCREEN Routine 10/03/2024 4: 43 AM INFORMATION TECHNOLOGY ACCOUNT MANAGER POC GLUCOSE SCREEN Routine 10/02/2024 9: 50 PM INFORMATION TECHNOLOGY ACCOUNT MANAGER POC GLUCOSE SCREEN Routine 10/02/2024 5: 36 PM INFORMATION TECHNOLOGY ACCOUNT MANAGER POC GLUCOSE SCREEN Routine 10/02/2024 9: 51 AM INFORMATION TECHNOLOGY ACCOUNT MANAGER TYPE AND SCREEN Routine 10/02/2024 5:00 AM INFORMATION TECHNOLOGY ACCOUNT MANAGER DIRECT AND INDIRECT BILIRUBIN Routine 10/02/2024 4:59 AM INFORMATION TECHNOLOGY ACCOUNT MANAGER .CBC Routine 10/02/2024 4:59 AM INFORMATION TECHNOLOGY ACCOUNT MANAGER COMPLETE BLOOD COUNT W/ DIFFERENTIAL Routine 10/02/2024 4:59 AM INFORMATION TECHNOLOGY ACCOUNT MANAGER COMPREHENSIVE METABOLIC PANEL Routine 10/02/2024 4:59 AM INFORMATION TECHNOLOGY ACCOUNT MANAGER PHOSPHORUS LEVEL Routine 10/02/2024 4:59 AM INFORMATION TECHNOLOGY ACCOUNT MANAGER MAGNESIUM LEVEL Routine 10/02/2024 4:59 AM INFORMATION TECHNOLOGY ACCOUNT MANAGER VITAMIN B12 LEVEL Routine 10/02/2024 4:5 8 AM INFORMATION TECHNOLOGY ACCOUNT MANAGER HOMOCYSTEINE TOTAL Routine 10/02/2024 4: 58 AM INFORMATION TECHNOLOGY ACCOUNT MANAGER FOLATE LEVEL Routine 10/02/2024 4:57 AM INFORMATION TECHNOLOGY ACCOUNT MANAGER POC GLUCOSE SCREEN Routine 10/02/2024 4: 21 AM INFORMATION TECHNOLOGY ACCOUNT MANAGER POC GLUCOSE SCREEN Routine 10/01/2024 10:04 PM INFORMATION TECHNOLOGY ACCOUNT MANAGER POC GLUCOSE SCREEN Routine 10/01/2024 4: 49 PM INFORMATION TECHNOLOGY ACCOUNT MANAGER POC GLUCOSE SCREEN Routine 10/01/2024 11:26 AM INFORMATION TECHNOLOGY ACCOUNT MANAGER POC GLUCOSE SCREEN Routine 10/01/2024 9: 28 AM INFORMATION TECHNOLOGY ACCOUNT MANAGER FOLATE, RED BLOOD CELLS Add-On 10/01/20 24 8:49 AM INFORMATION TECHNOLOGY ACCOUNT MANAGER .CBC Routine 10/01/2024 8:49 AM INFORMATION TECHNOLOGY ACCOUNT MANAGER COMPLETE BLOOD COUNT W/ DIFFERENTIAL Routine 10/01/2024 8:49 AM INFORMATION TECHNOLOGY ACCOUNT MANAGER OSCILLATORY PEP Routine 10/01/2024 8:00 AM INFORMATION TECHNOLOGY ACCOUNT MANAGER POC GLUCOSE SCREEN Routine 10/01/2024 4: 40 AM INFORMATION TECHNOLOGY ACCOUNT MANAGER FERRITIN Add-On 10/01/2024 1:45 AM INFORMATION TECHNOLOGY ACCOUNT MANAGER TRANSFERRIN Add-On 10/01/2024 1:45 AM INFORMATION TECHNOLOGY ACCOUNT MANAGER IRON LEVEL Add-On 10/01/2024 1:45 AM INFORMATION TECHNOLOGY ACCOUNT MANAGER DIRECT AND INDIRECT BILIRUBIN Routine 10/01/2024 1:45 AM INFORMATION TECHNOLOGY ACCOUNT MANAGER COMPREHENSIVE METABOLIC PANEL Routine 10/01/2024 1:45 AM INFORMATION TECHNOLOGY ACCOUNT MANAGER PHOSPHORUS LEVEL Routine 10/01/2024 1:45 AM INFORMATION TECHNOLOGY ACCOUNT MANAGER MAGNESIUM LEVEL Routine 10/01/2024 1:45 AM INFORMATION TECHNOLOGY ACCOUNT MANAGER CARDIAC PANEL Routine 10/01/2024 1:45 AM INFORMATION TECHNOLOGY ACCOUNT MANAGER POC GLUCOSE SCREEN Routine 09/30/2024 10:04 PM INFORMATION TECHNOLOGY ACCOUNT MANAGER POC GLUCOSE SCREEN Routine 09/30/2024 5: 47 PM INFORMATION TECHNOLOGY ACCOUNT MANAGER NM LUNG PERFUSION STAT 09/30/2024 5:2 0 PM INFORMATION TECHNOLOGY ACCOUNT MANAGER POC GLUCOSE SCREEN Routine 09/30/2024 1: 36 PM INFORMATION TECHNOLOGY ACCOUNT MANAGER MA ERCP STENT PLACEMENT BILIARY/PANCREATIC DUCT 09/30/2024 1:13 PM INFORMATION TECHNOLOGY ACCOUNT MANAGER Fever with chills Hyperbilirubinemia Leukocytosis Cholangiocarcinoma Acute cholangitis Abnormal liver function Liver enzymes level above reference range Fever presenting with conditions classified elsewhere Sepsis without septic shock Bacteremia caused by Gram-negative bacteria FL ENDOSCOPY FLUOROSCOPY Routine 024 12:58 PM INFORMATION TECHNOLOGY ACCOUNT MANAGER OSCILLATORY PEP Routine 09/30/2024 12:00 PM INFORMATION TECHNOLOGY ACCOUNT MANAGER POC GLUCOSE SCREEN Routine 09/30/2024 11:38 AM INFORMATION TECHNOLOGY ACCOUNT MANAGER ECHO AGITATED SALINE FOR SHUNT EVALUATION W CONTRAST STAT 09/30/2024 9:23 AM INFORMATION TECHNOLOGY ACCOUNT MANAGER TROPONIN T STAT 09/30/2024 9:02 AM INFORMATION TECHNOLOGY ACCOUNT MANAGER LACTIC ACID, VENOUS Routine 09/30/2024 8 :26 AM INFORMATION TECHNOLOGY ACCOUNT MANAGER BLOOD GAS VENOUS Routine 09/30/2024 8:26 AM INFORMATION TECHNOLOGY ACCOUNT MANAGER BASIC METABOLIC PANEL, CALCIUM IONIZED Routine 09/30/2024 6:15 AM INFORMATION TECHNOLOGY ACCOUNT MANAGER PHOSPHORUS LEVEL Routine 09/30/2024 6:15 AM INFORMATION TECHNOLOGY ACCOUNT MANAGER MAGNESIUM LEVEL Routine 09/30/2024 6:15 AM INFORMATION TECHNOLOGY ACCOUNT MANAGER BASIC METABOLIC PANEL, CALCIUM IONIZED Routine 09/30/2024 6:15 AM INFORMATION TECHNOLOGY ACCOUNT MANAGER THYROTROPIN RECEPTOR AB SERUM Routine 09/30/2024 6:15 AM INFORMATION TECHNOLOGY ACCOUNT MANAGER THYROID PEROXIDASE ANTIBODY Routine 09/30/2024 6:15 AM INFORMATION TECHNOLOGY ACCOUNT MANAGER ADRENOCORTICOTROPIC HORMONE Routine 09/30/2024 6:15 AM INFORMATION TECHNOLOGY ACCOUNT MANAGER CORTISOL, TOTAL Routine 09/30/2024 6:15 AM INFORMATION TECHNOLOGY ACCOUNT MANAGER HTLV I+II ANTIBODY Routine 09/30/2024 6: 15 AM INFORMATION TECHNOLOGY ACCOUNT MANAGER HIV 1/2 ANTIGEN/ANTIBODY, FOURTH GEN W/RFL Routine 09/30/2024 6:15 AM INFORMATION TECHNOLOGY ACCOUNT MANAGER T-SPOT TUBERCULOSIS Routine 09/30/2024 6 :15 AM INFORMATION TECHNOLOGY ACCOUNT MANAGER CYTOKINE PANEL 3 Routine 09/30/2024 6:15 AM INFORMATION TECHNOLOGY ACCOUNT MANAGER HEPATITIS C VIRUS ANTIBODY Routine 09/30 6:15 AM INFORMATION TECHNOLOGY ACCOUNT MANAGER HEPATITIS BE ANTIGEN Routine 09/30/2024 6:15 AM INFORMATION TECHNOLOGY ACCOUNT MANAGER HEPATITIS B CORE ANTIBODY Routine 2023 6:15 AM INFORMATION TECHNOLOGY ACCOUNT MANAGER HEPATITIS B SURFACE ANTIBODY Routine 09/30/2024 6:15 AM INFORMATION TECHNOLOGY ACCOUNT MANAGER HEPATITIS B SURFACE ANTIGEN Routine 09/30/2024 6:15 AM INFORMATION TECHNOLOGY ACCOUNT MANAGER POC GLUCOSE SCREEN Routine 09/30/2024 5: 09 AM INFORMATION TECHNOLOGY ACCOUNT MANAGER MRSA SCREENING CULTURE Routine 12:38 AM INFORMATION TECHNOLOGY ACCOUNT MANAGER TRIIODOTHYRONINE Add-On 09/30/2024 12:34 AM INFORMATION TECHNOLOGY ACCOUNT MANAGER C REACTIVE PROTEIN Add-On 09/30/2024 12:34 AM INFORMATION TECHNOLOGY ACCOUNT MANAGER SEDIMENTATION RATE NON-AUTOMATED Add-On 09/30/2024 12:34 AM INFORMATION TECHNOLOGY ACCOUNT MANAGER DIFFERENTIAL Routine 09/30/2024 12:34 AM INFORMATION TECHNOLOGY ACCOUNT MANAGER .CBC Routine 09/30/2024 12:34 AM INFORMATION TECHNOLOGY ACCOUNT MANAGER CALCIUM IONIZED, VENOUS Routine 09/30/20 24 12:34 AM INFORMATION TECHNOLOGY ACCOUNT MANAGER BASIC METABOLIC PANEL, CALCIUM IONIZED Routine 09/30/2024 12:34 AM INFORMATION TECHNOLOGY ACCOUNT MANAGER HEPATIC FUNCTION PANEL Routine 12:34 AM INFORMATION TECHNOLOGY ACCOUNT MANAGER COMPLETE BLOOD COUNT W/ DIFFERENTIAL Routine 09/30/2024 12:34 AM INFORMATION TECHNOLOGY ACCOUNT MANAGER LACTIC ACID, VENOUS Routine 09/30/2024 12:34 AM INFORMATION TECHNOLOGY ACCOUNT MANAGER BLOOD GAS VENOUS Routine 09/30/2024 12:34 AM INFORMATION TECHNOLOGY ACCOUNT MANAGER PHOSPHORUS LEVEL Routine 09/30/2024 12:34 AM INFORMATION TECHNOLOGY ACCOUNT MANAGER MAGNESIUM LEVEL Routine 09/30/2024 12:34 AM INFORMATION TECHNOLOGY ACCOUNT MANAGER BASIC METABOLIC PANEL, CALCIUM IONIZED Routine 09/30/2024 12:34 AM INFORMATION TECHNOLOGY ACCOUNT MANAGER EKG, 12-LEAD (PORTABLE) STAT 09/30/2024 POC GLUCOSE SCREEN Routine 09/29/2024 11:10 PM INFORMATION TECHNOLOGY ACCOUNT MANAGER OSCILLATORY PEP Routine 09/29/2024 8:00 PM INFORMATION TECHNOLOGY ACCOUNT MANAGER VRE CULTURE Routine 09/29/2024 7:58 PM INFORMATION TECHNOLOGY ACCOUNT MANAGER C. AURIS SCREENING PCR Routine 7:58 PM INFORMATION TECHNOLOGY ACCOUNT MANAGER CALCIUM IONIZED, VENOUS Routine 09/29/20 24 6:35 PM INFORMATION TECHNOLOGY ACCOUNT MANAGER BASIC METABOLIC PANEL, CALCIUM IONIZED Routine 09/29/2024 6:35 PM INFORMATION TECHNOLOGY ACCOUNT MANAGER HC PROCALCITONIN (PCT) STAT 6:35 PM INFORMATION TECHNOLOGY ACCOUNT MANAGER LACTIC ACID, VENOUS Routine 09/29/2024 6 :35 PM INFORMATION TECHNOLOGY ACCOUNT MANAGER BLOOD GAS VENOUS Routine 09/29/2024 6:35 PM INFORMATION TECHNOLOGY ACCOUNT MANAGER PHOSPHORUS LEVEL Routine 09/29/2024 6:35 PM INFORMATION TECHNOLOGY ACCOUNT MANAGER MAGNESIUM LEVEL Routine 09/29/2024 6:35 PM INFORMATION TECHNOLOGY ACCOUNT MANAGER BASIC METABOLIC PANEL, CALCIUM IONIZED Routine 09/29/2024 6:35 PM INFORMATION TECHNOLOGY ACCOUNT MANAGER TROPONIN I Routine 09/29/2024 6:35 PM INFORMATION TECHNOLOGY ACCOUNT MANAGER POC GLUCOSE SCREEN Routine 09/29/2024 6: 25 PM INFORMATION TECHNOLOGY ACCOUNT MANAGER OSCILLATORY PEP Routine 09/29/2024 6:19 PM INFORMATION TECHNOLOGY ACCOUNT MANAGER OSCILLATORY PEP Routine 09/29/2024 6:19 PM INFORMATION TECHNOLOGY ACCOUNT MANAGER OSCILLATORY PEP Routine 09/29/2024 6:19 PM INFORMATION TECHNOLOGY ACCOUNT MANAGER OSCILLATORY PEP Routine 09/29/2024 6:19 PM INFORMATION TECHNOLOGY ACCOUNT MANAGER HC URINALYSIS AUTO W MICROSCOPY Routine 09/29/2024 5:58 PM INFORMATION TECHNOLOGY ACCOUNT MANAGER CREATININE URINE, RANDOM Routine 024 5:58 PM INFORMATION TECHNOLOGY ACCOUNT MANAGER SODIUM URINE Routine 09/29/2024 5:58 PM INFORMATION TECHNOLOGY ACCOUNT MANAGER CHLORIDE LEVEL URINE Routine 09/29/2024 5:58 PM INFORMATION TECHNOLOGY ACCOUNT MANAGER OSMOLALITY URINE Routine 09/29/2024 5:58 PM INFORMATION TECHNOLOGY ACCOUNT MANAGER POTASSIUM LEVEL URINE Routine 09/29/2024 5:58 PM INFORMATION TECHNOLOGY ACCOUNT MANAGER US LIVER STAT 09/29/2024 4:12 PM INFORMATION TECHNOLOGY ACCOUNT MANAGER FREE THYROXINE Add-On 09/29/2024 2:59 PM INFORMATION TECHNOLOGY ACCOUNT MANAGER THYROID STIMULATING HORMONE Add-On 09/29/2024 2:59 PM INFORMATION TECHNOLOGY ACCOUNT MANAGER LIPID PANEL Add-On 09/29/2024 2:59 PM INFORMATION TECHNOLOGY ACCOUNT MANAGER TROPONIN T STAT 09/29/2024 2:59 PM INFORMATION TECHNOLOGY ACCOUNT MANAGER PHOSPHORUS LEVEL Routine 09/29/2024 2:59 PM INFORMATION TECHNOLOGY ACCOUNT MANAGER MAGNESIUM LEVEL Routine 09/29/2024 2:59 PM INFORMATION TECHNOLOGY ACCOUNT MANAGER BASIC METABOLIC PANEL, CALCIUM TOTAL Routine 09/29/2024 2:59 PM INFORMATION TECHNOLOGY ACCOUNT MANAGER LACTIC ACID, VENOUS Routine 09/29/2024 2 :59 PM INFORMATION TECHNOLOGY ACCOUNT MANAGER BLOOD GAS VENOUS Routine 09/29/2024 2:59 PM INFORMATION TECHNOLOGY ACCOUNT MANAGER POC GLUCOSE SCREEN Routine 09/29/2024 2: 09 PM INFORMATION TECHNOLOGY ACCOUNT MANAGER TYPE AND SCREEN Routine 09/29/2024 12:59 PM INFORMATION TECHNOLOGY ACCOUNT MANAGER XR CHEST 1 VW PORTABLE Routine 12:07 PM INFORMATION TECHNOLOGY ACCOUNT MANAGER HEMOGLOBIN A1C Add-On 09/29/2024 11:58 AM INFORMATION TECHNOLOGY ACCOUNT MANAGER DIRECT AND INDIRECT BILIRUBIN STAT 09/29/2024 11:58 AM INFORMATION TECHNOLOGY ACCOUNT MANAGER DIFFERENTIAL STAT 09/29/2024 11:58 AM INFORMATION TECHNOLOGY ACCOUNT MANAGER NT PRO BNP Add-On 09/29/2024 11:58 AM INFORMATION TECHNOLOGY ACCOUNT MANAGER .CBC STAT 09/29/2024 11:58 AM INFORMATION TECHNOLOGY ACCOUNT MANAGER APTT Routine 09/29/2024 11:58 AM INFORMATION TECHNOLOGY ACCOUNT MANAGER LACTIC ACID, VENOUS STAT 09/29/2024 11:58 AM INFORMATION TECHNOLOGY ACCOUNT MANAGER BLOOD GAS VENOUS STAT 09/29/2024 11:58 AM INFORMATION TECHNOLOGY ACCOUNT MANAGER PHOSPHORUS LEVEL STAT 09/29/2024 11:58 AM INFORMATION TECHNOLOGY ACCOUNT MANAGER MAGNESIUM LEVEL STAT 09/29/2024 11:58 AM INFORMATION TECHNOLOGY ACCOUNT MANAGER COMPREHENSIVE METABOLIC PANEL STAT 09/29/2024 11:58 AM INFORMATION TECHNOLOGY ACCOUNT MANAGER COMPLETE BLOOD COUNT W/ DIFFERENTIAL STAT 09/29/2024 11:58 AM INFORMATION TECHNOLOGY ACCOUNT MANAGER CARDIAC PANEL STAT 09/29/2024 11:58 AM INFORMATION TECHNOLOGY ACCOUNT MANAGER PROTHROMBIN TIME Routine 09/29/2024 11:58 AM INFORMATION TECHNOLOGY ACCOUNT MANAGER POC GLUCOSE SCREEN Routine 09/29/2024 5: 54 AM INFORMATION TECHNOLOGY ACCOUNT MANAGER URINALYSIS MICROSCOPIC EXAM Routine 09/29/2024 5:14 AM INFORMATION TECHNOLOGY ACCOUNT MANAGER HC URINALYSIS AUTO W MICROSCOPY Routine 09/29/2024 5:14 AM INFORMATION TECHNOLOGY ACCOUNT MANAGER URINE CULTURE Routine 09/29/2024 5:14 AM INFORMATION TECHNOLOGY ACCOUNT MANAGER POC VENOUS BLOOD GAS + LACTATE Routine 09/29/2024 3:19 AM INFORMATION TECHNOLOGY ACCOUNT MANAGER .CBC Routine 09/29/2024 2:49 AM INFORMATION TECHNOLOGY ACCOUNT MANAGER LACTATE DEHYDROGENASE Routine 09/29/2024 2:49 AM INFORMATION TECHNOLOGY ACCOUNT MANAGER FRACTIONATED BILIRUBIN Routine 2:49 AM INFORMATION TECHNOLOGY ACCOUNT MANAGER PHOSPHORUS LEVEL Routine 09/29/2024 2:49 AM INFORMATION TECHNOLOGY ACCOUNT MANAGER MAGNESIUM LEVEL Routine 09/29/2024 2:49 AM INFORMATION TECHNOLOGY ACCOUNT MANAGER COMPREHENSIVE METABOLIC PANEL Routine 09/29/2024 2:49 AM INFORMATION TECHNOLOGY ACCOUNT MANAGER COMPLETE BLOOD COUNT W/ DIFFERENTIAL Routine 09/29/2024 2:49 AM INFORMATION TECHNOLOGY ACCOUNT MANAGER BLOOD CULTURE Routine 09/29/2024 2:49 AM INFORMATION TECHNOLOGY ACCOUNT MANAGER EKG, 12-LEAD (PORTABLE) STAT 09/29/2024 EKG, 12-LEAD (PORTABLE) STAT 09/29/2024 OSI CHEST Routine 09/28/2024 7:15 AM INFORMATION TECHNOLOGY ACCOUNT MANAGER OSI CT BRAIN Routine 09/28/2024 7:15 AM INFORMATION TECHNOLOGY ACCOUNT MANAGER OSI CT ABDOMEN AND PELVIS Routine 2023 7:14 AM INFORMATION TECHNOLOGY ACCOUNT MANAGER .CBC Routine 09/21/2024 8:13 AM INFORMATION TECHNOLOGY ACCOUNT MANAGER Cholangiocarcinoma CARCINOEMBRYONIC ANTIGEN Routine 024 8:13 AM INFORMATION TECHNOLOGY ACCOUNT MANAGER Cholangiocarcinoma CARBOHYDRATE ANTIGEN 19-9 Routine 2023 8:13 AM INFORMATION TECHNOLOGY ACCOUNT MANAGER Cholangiocarcinoma FREE THYROXINE Routine 09/21/2024 8:13 AM INFORMATION TECHNOLOGY ACCOUNT MANAGER Cholangiocarcinoma THYROID STIMULATING HORMONE Routine 09/21/2024 8:13 AM INFORMATION TECHNOLOGY ACCOUNT MANAGER Cholangiocarcinoma COMPLETE BLOOD COUNT W/ DIFFERENTIAL Routine 09/21/2024 8:13 AM INFORMATION TECHNOLOGY ACCOUNT MANAGER Cholangiocarcinoma COMPREHENSIVE METABOLIC PANEL Routine 09/21/2024 8:13 AM INFORMATION TECHNOLOGY ACCOUNT MANAGER Cholangiocarcinoma GALECTIN 3 Routine 09/21/2024 8:13 AM INFORMATION TECHNOLOGY ACCOUNT MANAGER Cholangiocarcinoma HEMOGLOBIN A1C Add-On 08/31/2024 9:35 AM CDT Type 2 diabetes mellitus with hyperglycemia URINALYSIS MICROSCOPIC EXAM Routine 08/31/2024 9:35 AM CDT Cholangiocarcinoma .CBC Routine 08/31/2024 9:35 AM CDT Cholangiocarcinoma URINALYSIS WITH MICROSCOPIC IF INDICATED Routine 08/31/2024 9:35 AM CDT Cholangiocarcinoma MAGNESIUM LEVEL Routine 08/31/2024 9:35 AM CDT Cholangiocarcinoma LACTATE DEHYDROGENASE Routine 08/31/2024 9:35 AM CDT Cholangiocarcinoma COMPREHENSIVE METABOLIC PANEL Routine 08/31/2024 9:35 AM CDT Cholangiocarcinoma COMPLETE BLOOD COUNT W/ DIFFERENTIAL Routine 08/31/2024 9:35 AM CDT Cholangiocarcinoma URINE CULTURE Routine 08/31/2024 9:[address] CHEST ABDOMEN PELVIS W WO CONTRAST Routine 08/23/2024 8:20 AM CDT Cholangiocarcinoma FREE THYROXINE Add-On 08/23/2024 6:58 AM CDT Cholangiocarcinoma THYROID STIMULATING HORMONE Add-On 08/23/2024 6:58 AM CDT Cholangiocarcinoma .CBC Routine 08/23/2024 6:58 AM CDT Cholangiocarcinoma CARBOHYDRATE ANTIGEN 19-9 Routine 2023 6:58 AM CDT Cholangiocarcinoma COMPREHENSIVE METABOLIC PANEL Routine 08/23/2024 6:58 AM CDT Cholangiocarcinoma COMPLETE BLOOD COUNT W/ DIFFERENTIAL Routine 08/23/2024 6:58 AM CDT Cholangiocarcinoma after 08/09/2024 Results * (ABNORMAL) .CBC (08/08/2025 8:51 AM CDT) Only the most recent of36 resultswithin the time period is included. Pathologist [facility] White Blood Cell 10.2 4.1 - 10.5 K/uL 08/08/2025 9:31 AM CDT [facility] Red Blood Cell 2.77(L) 4.30 - 6.04 M/uL 08/08/2025 9:31 AM [facility] Hemoglobin 9.6(L) 13.3 - 17.4 g/dL 08/08/2025 9:31 AM [facility] Hematocrit 28.0(L) 39.5 - 51.8 % 08/08/2025 9:31 AM [facility] Mean Cell Volume 101(H) 82 - 99 fL 08/08/2025 9:31 AM [facility] Mean Cell Hemoglobin 34.7(H) 26.6 - 33.2 pg 08/08/2025 9:31 AM [facility] Mean Cell Hemoglobin Concentration 34.3 31.1 - 35.2 g/dL 08/08/2025 9:31 AM [facility] RDW-SD 64.5(H) 37.5 - 49.7 fL 08/08/2025 9:31 AM [facility] Red Cell Diameter Width 17.1(H) 11.6 - 15.5 % 08/08/2025 9:31 AM [facility] Platelet 141(L) 160 - 397 K/uL 08/08/2025 9:31 AM [facility] Mean Platelet Volume 10.7 9.1 - 12.6 fL 08/08/2025 9:31 AM [facility] Blood Venous blood specimen / Unknown Port / Unknown 08/08/2025 8:51 AM CDT 08/08/2025 8:53 AM CDT Marbella GRAJEDA LAB BLOOD ORDERABLES Final Resul t [facility] [address] [facility], [facility] [address] [place] [address] * (ABNORMAL) Comprehensive Metabolic Panel (08/08/2025 8:51 AM CDT) Only the most recent of33 resultswithin the time period is included. Bilirubin Total 0.7 0.0 - 1.2 mg/dL 08/08/2025 9:15 AM [facility] Comment:Indocyanine Green (I CG) may cause falsely elevated bilirubin results. Total and direct bilirubin must not be measured from samples containing indocyanine green. False elevation of total bilirubin can be seen in patients with IgG concentrations above 28 g/L. eGFR 82 >=60 mL/min/1. 73 sq. m 08/08/2025 9:15 AM [facility] Comment: The eGFRcr is calculated with [...] G2 fulfill criteria for CKD. Tot Protein 7.4 6.4 - 8.3 gm/dL 08/08/2025 9:15 AM [facility] Calcium Level Total 9.5 8.2 - 10.2 mg/dL 08/08/2025 9:15 AM [facility] Alkaline Phosphatase 567(H) 40 - 129 U/L 08/08/2025 9:15 AM [facility] Albumin Level 3.3(L) 3.5 - 5.2 gm/dL 08/08/2025 9:15 AM [facility] AST 63(H) <=40 U/L 08/08/2025 9:15 AM [facility] ALT 54(H) <=41 U/L 08/08/2025 9:15 AM [facility] Sodium Level 133(L) 136 - 145 mmol/L 08/08/2025 9:15 AM [facility] Potassium Level 4.3 3.4 - 4.5 mmol/L 08/08/2025 9:15 AM [facility] Chloride 102 98 - 107 mmol/L 08/08/2025 9:15 AM [facility] CO2 21(L) 22 - 29 mmol/L 08/08/2025 9:15 AM [facility] Anion Gap 10 4 - 14 mmol/L 08/08/2025 9:15 AM [facility] Creatinine 0.94 0.67 - 1.17 mg/dL 08/08/2025 9:15 AM [facility] BUN 17 6 - 23 mg/dL 08/08/2025 9:15 AM [facility] Glucose Level 223(H) 70 - 99 mg/dL 08/08/2025 9:15 AM [facility] Comment: Effective 06/12/16, the glucose reference intervals have been updated based on [place] [employer] guidelines (Standards of Medical Care in Diabetes 2016. Diabetes Care 2016; 39: S13-S22). Fasting blood glucose: Normal: 70-99 mg/dL Impaired fasting glucose (increased risk for diabetes or pre-diabetes): 100-125 mg/dL Diabetes mellitus: >/=126 mg/dL Random blood glucose: Normal: 70-199 mg/dL Note: Random glucose >100 mg/dL is associated with increased risk for diabetes. Blood Venous blood specimen / Unknown Port / Unknown 08/08/2025 8:51 AM CDT 08/08/2025 8:53 AM CDT us Marbella GRAJEDA LAB BLOOD ORDERABLES Final Resul t [facility] [address] [facility], [facility] [address] [place] [address] * (ABNORMAL) CA 19-9 (08/08/2025 8:51 AM CDT) Only the most recent of18 resultswithin the time period is included. CA 19-9 2,668.0(H) <=35.0 U/mL 08/08/2025 9:56 AM [facility] Blood Venous blood specimen / Unknown Port / Unknown 08/08/2025 8:51 AM CDT 08/08/2025 8:53 AM CDT [facility] - 08/08/2025 9:56 AM CDT Results greater than 9500 U/mL may not be reliable due to matrix effect with extended dilution as it exceeds the concrete grinder operator's recommended limit. Caution should be exercised when interpreting such values and done in conjunction with clinical context. This test is measured by electrochemiluminescence immunoassay on Parker Kat immunoassay analyzers. Results obtained in different methods are not interchangeable. us Marbella GRAJEDA LAB BLOOD ORDERABLES Final Resul t [facility] [address] [facility], [facility] [address] [place] [address] * (ABNORMAL) Differential (08/08/2025 8:51 AM CDT) Only the most recent of9 resultswithin the time period is included. Total Cells 100 08/08/2025 9:31 AM [facility] Manual Neutrophil % 60.0 43.2 - 72.7 % 08/08/2025 9:31 AM [facility] Comment:The Neutrophil count includes Bands. Manual Lymphocyte % 17.0 16.8 - 46.2 % 08/08/2025 9:31 AM [facility] Manual Monocyte % 10.0 5.1 - 12.5 % 08/08/2025 9:31 AM [facility] Manual Eosinophil % 11.0(H) 0.4 - 6.3 % 08/08/2025 9:31 AM [facility] Manual Basophil % 1.0 0.2 - 1.4 % 08/08/2025 9:31 AM [facility] Metamyelocyte % 1.0(H) <=0.0 % 9:31 AM [facility] Comment:The Metamyelocyte co unt includes Myelocytes. Manual Neutrophil Abs 6.12 1.95 - 7.25 K/uL 08/08/2025 9:31 AM [facility] Manual Lymphocyte Abs 1.73 1.01 - 3.24 K/uL 08/08/2025 9:31 AM [facility] Manual Monocyte Abs 1.02(H) 0.24 - 0.85 K/uL 08/08/2025 9:31 AM CDT [facility] Manual Eosinophil Abs 1.12(H) 0.02 - 0.50 K/uL 08/08/2025 9:31 AM CDT [facility] Manual Basophil Abs 0.10(H) 0.02 - 0.09 K/uL 08/08/2025 9:31 AM T [facility] RBC Morphology PRESENT 08/08/2025 9:31 AM T [facility] PLT Morph Normal Normal 08/08/2025 9:31 AM T [facility] Anisocytosis Present(A) (none) 08/08/2025 9:31 AM T [facility] Blood Venous blood specimen / Unknown Port / Unknown 08/08/2025 8:51 AM CDT 08/08/2025 8:53 AM CDT Marbella GRAJEDA LAB BLOOD ORDERABLES Final Resul t Performing Organization Address City/[facility]/ZIP Co de Phone Number [address] [address] * (ABNORMAL) TSH (07/25/2025 8:37 AM CDT) Only the most recent of13 resultswithin the time period is included. Pathologist [facility] Thyroid Stimulating Hormone 28.40(H) 0.27 - 4.20 mcIU/mL 07/25/2025 9:32 AM CDT [facility] Blood Venous blood specimen / Unknown Port / Unknown 07/25/2025 8:37 AM CDT 07/25/2025 8:44 AM CDT Marbella GRAJEDA LAB BLOOD ORDERABLES Final Resul t [address] [address] * (ABNORMAL) Free T4 (07/25/2025 8:37 AM CDT) Only the most recent of13 resultswithin the time period is included. T4 (Thyroxine) Free 0.79(L) 0.92 - 1.68 ng/dL 07/25/2025 9:32 AM CDT [facility] Blood Venous blood specimen / Unknown Port / Unknown 07/25/2025 8:37 AM CDT 07/25/2025 8:44 AM CDT Marbella GRAJEDA LAB BLOOD ORDERABLES Final Resul t [facility] [address] [facility], [facility] [address] [place] [address] * Creatinine (07/20/2025 1:16 PM CDT) Creatinine 1.01 0.67 - 1.17 mg/dL 07/20/2025 2:02 PM CDT [facility] eGFR 75 >=60 mL/min/1.7 3 sq. m 07/20/2025 2:02 PM CDT [facility] Comment: The eGFRcr is calculated with [...] CKD. Blood Venous blood specimen / Unknown Port / Unknown 07/20/2025 1:16 PM CDT 07/20/2025 1:24 PM CDT Daphne Puente LOADER OPERATOR/GROUND LEADER LAB BLOOD ORDERABLES Final Result Performing Organization Address City/[facility]/ZIP Co de Phone Number [address] [address] * Blood culture (07/16/2025 10:24 AM CDT) Only the most recent of7 resultswithin the time period is included. Pathologist [facility] Blood Culture No Growth. 07/21/2025 11:00 AM CDT [facility] Blood Peripheral blood specimen / Unknown Port / Unknown 07/16/2025 10:24 AM CDT 07/16/2025 10:28 AM CDT Narrative [facility] - 07/21/2025 11:00 AM CDT Single culture bottle received. This will result in decreased sensitivity in pathogen detection.Single culture bottle received. This will result in decreased sensitivity in pathogen detection. One or both culture bottles underfilled (<5 mL). This will result in decreased sensitivity in pathogen detection. Kristine Gomez MD MICROBIOLOGY - GENERAL ORDERAB LES Final Result Performing Organization Address [facility] Co de Phone Number [address] [address] * aPTT (07/16/2025 9:44 AM CDT) Only the most recent of2 resultswithin the time period is included. Pathologist [facility] Activated PTT 34.6 24.8 - 35.6 second(s) 07/16/2025 10:38 AM CDT [facility] Blood Venous blood specimen / Unknown Port / Unknown 07/16/2025 9:44 AM CDT 07/16/2025 9:49 AM CDT Kristine Gomez MD LAB BLOOD ORDERABLES Final Res ult Performing Organization Address City/[facility]/ZIP Co de Phone Number [address] [address] * (ABNORMAL) Prothrombin Time with INR (07/16/2025 9:44 AM CDT) Only the most recent of3 resultswithin the time period is included. Prothrombin Time 14.5(H) 12.2 - 14.4 second(s) 07/16/2025 10:38 AM CDT [facility] International Normalization Ratio 1.15(H) 0.91 - 1.10 07/16/2025 10:38 AM CDT [facility] Blood Venous blood specimen / Unknown Port / Unknown 07/16/2025 9:44 AM CDT 07/16/2025 9:49 AM CDT Kristine Gomez MD LAB BLOOD ORDERABLES Final Res ult Performing Organization Address City/[facility] de Phone Number [address] [address] * Phosphorus Level (07/16/2025 9:44 AM CDT) Only the most recent of19 resultswithin the time period is included. Phosphorus Level 2.7 2.5 - 4.5 mg/dL 07/16/2025 10:32 AM CDT [facility] Blood Venous blood specimen / Unknown Port / Unknown 07/16/2025 9:44 AM CDT 07/16/2025 9:49 AM CDT Kristine Gomez MD LAB BLOOD ORDERABLES Final Res ult Performing Organization Address City/[facility] de Phone Number [address] [address] * Magnesium Level (07/16/2025 9:44 AM CDT) Only the most recent of20 resultswithin the time period is included. Magnesium Level 1.9 1.6 - 2.6 mg/dL 07/16/2025 10:32 AM CDT [facility] Blood Venous blood specimen / Unknown Port / Unknown 07/16/2025 9:44 AM CDT 07/16/2025 9:49 AM CDT Kristine Gomez MD LAB BLOOD ORDERABLES Final Res ult Performing Organization Address [facility] Co de Phone Number [address] [address] * (ABNORMAL) POC Glucose Screen - Fingerstick (07/14/2025 8:11 AM CDT) Only the most recent of50 resultswithin the time period is included. Pathologist [facility] Glucose Screen 157(H) 70 - 99 mg/dL 07/14/2025 8:12 AM CDT [facility] POC Sample Type Capillary 07/14/2025 8:12 AM CDT [facility] Blood 07/14/2025 8:11 AM CDT 07/14/2025 8:12 AM CDT Narrative [facility] - 07/14/2025 8:12 AM CDT Capillary blood samples, e.g. obtained [...] questionable test results by core lab methodology. Stephani White MD POCT ORDERABLES - DEVICE Final Result Performing Organization Address [facility] Co de Phone Number [address] [address] * (ABNORMAL) Urinalysis w/Microscopic if Indicated (07/14/2025 2:23 AM CDT) Pathologist [facility] Urine Appearance Clear Clear 07/14/20 2:34 AM CDT [facility] Urine Color Straw Colorless, Straw, Yellow, Dark Yellow, Straw-Yellow 07/14/2025 2:34 AM CDT [facility] Urine Specific [place] 1.011 1.003 - 1.035 07/14/2025 2:34 AM CDT [facility] Urine pH 6.0 5.0 - 8.0 07/14/2025 2:34 AM CDT [facility] Urine Glucose 30(A) Negative mg/dL 07/14/2025 2:34 AM CDT [facility] Urine Ketones Negative Negative mg/dL 07/14/2025 2:34 AM CDT [facility] Urine Blood Negative Negative 07/14/2025 2:34 AM CDT [facility] Urine Protein Negative Negative mg/dL 07/14/2025 2:34 AM CDT [facility] Urine Bilirubin Negative Negative 2:34 AM CDT [facility] Urine Urobilinogen Negative Negative 07/14/2025 2:34 AM CDT [facility] Urine Nitrite Negative Negative 07/14/2025 2:34 AM CDT [facility] Urine Leukocyte Esterase Negative Negative 07/14/2025 2:34 AM CDT [facility] Urine Voided urine specimen / Unknown Non-blood Collection / Unknown 07/14/2025 2:23 AM CDT 07/14/2025 2:28 AM CDT Narrative [facility] - 07/14/2025 2:34 AM CDT Some reporting parameters within the Urinalysis test have changed due to the implementation of new instrumentation in the Main [place], allowing greater sensitivity of measurement. Urinalysis results reported by the [facility] using existing instrumentation, as well as Urinalysis testing performed manually or by back-up methodology at the main [place], will remain relatively unchanged. New reporting parameters and units will now be reported for all campuses. No microscopic exam performed; physiochemical findings are negative us Tip Mulligan MD URINE ORDERABLES Final Result Performing Organization Address City/State/[facility] Co de Phone Number [facility] [address] [place] [address] * Urine Culture (07/14/2025 2:23 AM CDT) Only the most recent of5 resultswithin the time period is included. Urine Culture No Growth. 07/16/2025 8:26 AM CDT [facility] Urine Voided urine specimen / Unknown Non-blood Collection / Unknown 07/14/2025 2:23 AM CDT 07/14/2025 2:28 AM CDT us Tip Mulligan MD MICROBIOLOGY - GENERAL ORDERABLE S Final Result [facility] [address] [place] [address] * (ABNORMAL) Basic Metabolic Panel- Total Calcium (07/14/2025 2:13 AM CDT) Only the most recent of3 resultswithin the time period is included. eGFR 80 >=60 mL/min/1.7 3 sq. m 07/14/2025 2:59 AM CDT [facility] Comment: The eGFRcr is calculated with [...] fulfill criteria for CKD. Calcium Level Total 8.4 8.2 - 10.2 mg/dL 07/14/2025 2:59 AM CDT [facility] Sodium Level 138 136 - 145 mmol/L 07/14/2025 2:59 AM CDT [facility] Potassium Level 4.2 3.4 - 4.5 mmol/L 07/14/2025 2:59 AM CDT [facility] Chloride 108(H) 98 - 107 mmol/L 07/14/2025 2:59 AM CDT [facility] CO2 21(L) 22 - 29 mmol/L 07/14/2025 2:59 AM CDT [facility] Anion Gap 9 4 - 14 mmol/L 07/14/2025 2:59 AM CDT [facility] Creatinine 0.96 0.67 - 1.17 mg/dL 07/14/2025 2:59 AM CDT [facility] BUN 11 6 - 23 mg/dL 07/14/2025 2:59 AM CDT [facility] Glucose Level 219(H) 70 - 99 mg/dL 07/14/2025 2:59 AM CDT [facility] Comment: Effective 06/12/16, the glucose reference intervals have been updated based on [place] [employer] guidelines (Standards of Medical Care in Diabetes 2016. Diabetes Care 2016; 39: S13-S22). Fasting blood glucose: Normal: 70-99 mg/dL Impaired fasting glucose (increased risk for diabetes or pre-diabetes): 100-125 mg/dL Diabetes mellitus: >/=126 mg/dL Random blood glucose: Normal: 70-199 mg/dL Note: Random glucose >100 mg/dL is associated with increased risk for diabetes. Blood Venous blood specimen / Unknown Port / Unknown 07/14/2025 2:13 AM CDT 07/14/2025 2:23 AM CDT Daphne Puente APRN LAB BLOOD ORDERABLES Final Result Performing Organization Address City/State/[facility] Co de Phone Number [facility] [address] [place] [address] * Transfuse RBC:Transfusion Date: 07/13/2025 (07/13/2025 4:34 PM CDT) Only the most recent of3 resultswithin the time period is included. us Hafsa Lance MD BLOOD TRANSFUSION ORDERABLES Fin al Result * Prepare RBC:Transfusion Date: 07/13/2025; Transfusion Indications: Hgb less than or equal to 8 gm/dl; accc, 1 Units (07/13/2025 1:38 PM CDT) Only the most recent of4 resultswithin the time period is included. Product Code [id number] [facility] Product Code Text Red Blood Cells [facility] QTY Ordered 1 [facility] Dispense Status Transfused [facility] Unit Expiration [id number] [facility] Unit Number [id number] [facility] - [facility]SF[facility]ION [facility] Unit Blood Type O+ [facility] - [facility] Bag Volume 379 [facility] XM Interpretation Compatible U [facility] - [facility]SF[facility] Unit Blood Type Barcode 5100 [facility] PRBC Product Ready For Flexboard Operator B2 Blood Bank [facility] RBC Product Status 1 RBC approved [facility] Comment:Order Form 03 when r rosario for product issue. Blood us Hafsa Lance MD BLOOD BANK PRODUCT ORDERABLES Fi nal Result [facility] [address] [place] [address], * (ABNORMAL) POC VBG+LAC (07/13/2025 12:54 PM CDT) Only the most recent of2 resultswithin the time period is included. POC VB pH. 7.402 7.310 - 7.410 07/13/2025 12:55 PM CDT [facility] POC VB pCO2. 31.3(L) 41.0 - 51.0 mmHg 07/13/2025 12:55 PM CDT [facility] POC VB pO2. 35 mmHg 07/13/2025 12:55 PM CDT [facility] POC VB TCO2 20(L) 24 - 29 mmol/L 07/13/2025 12:55 PM CDT [facility] POC VB Bicarb 19.5(L) 23.0 - 28.0 mmol/L 07/13/2025 12:55 PM CDT [facility] POC VB Base Excess -5(L) -2 - 3 mmol/L 07/13/2025 12:55 PM CDT [facility] POC VB O2 Sat 69 % 07/13/2025 12:55 PM CDT [facility] POC VB LAC 1.67 0.50 - 1.70 mmol/L 07/13/2025 12:55 PM CDT [facility] POC FiO2 07/13/2025 12:55 PM CDT [facility] POC Sample Type Venous 07/13/2025 12:55 PM CDT [facility] Blood 07/13/2025 12:5 4 PM CDT 07/13/2025 12:55 PM CDT Narrative [facility] - 07/13/2025 12:55 PM CDT Method description: The i-STAT is [...] analyte concentration by an electrochemical assay. us Hafsa Lance MD POCT ORDERABLES - DEVICE Final R esult [facility] [address] [place] [address] * Respiratory Multiplex PCR Panel, Nasopharyngeal Swab (07/13/2025 12:53 PM CDT) Adenovirus Not Detected Not Detected 07/13/2025 2:17 PM CDT [facility] Coronavirus 229E Not Detected Not Detected 07/13/2025 2:17 PM CDT [facility] Coronavirus HKU1 Not Detected Not Detected 07/13/2025 2:17 PM CDT [facility] Coronavirus NL63 Not Detected Not Detected 07/13/2025 2:17 PM CDT [facility] Coronavirus OC43 Not Detected Not Detected 07/13/2025 2:17 PM CDT [facility] COVID-19 (SARS-CoV-2) Not Detected Not Detected 07/13/2025 2:17 PM CDT [facility] Human Metapneumovirus Not Detected Not Detected 07/13/2025 2:17 PM CDT [facility] Human Rhinovirus/Enterov irus Not Detected Not Detected 07/13/2025 2:17 PM CDT [facility] Influenza A Not Detected Not Detected 07/13/2025 2:17 PM CDT [facility] Influenza A H1 Not Detected Not Detected 07/13/2025 2:17 PM CDT [facility] Influenza A H1 2009 Not Detected Not Detected 07/13/2025 2:17 PM CDT [facility] Influenza A H3 Not Detected Not Detected 07/13/2025 2:17 PM CDT [facility] Influenza B Not Detected Not Detected 07/13/2025 2:17 PM CDT [facility] Parainfluenza Virus 1 Not Detected Not Detected 07/13/2025 2:17 PM CDT [facility] Parainfluenza Virus 2 Not Detected Not Detected 07/13/2025 2:17 PM CDT [facility] Parainfluenza Virus 3 Not Detected Not Detected 07/13/2025 2:17 PM CDT [facility] Parainfluenza Virus 4 Not Detected Not Detected 07/13/2025 2:17 PM CDT [facility] Respiratory Syncytial Virus Not Detected Not Detected 07/13/2025 2:17 PM CDT [facility] Bordetella parapertussis Not Detected Not Detected 07/13/2025 2:17 PM CDT [facility] Bordetella pertussis Not Detected Not Detected 07/13/2025 2:17 PM CDT [facility] Chlamydophila pneumoniae Not Detected Not Detected 07/13/2025 2:17 PM CDT [facility] Mycoplasma pneumoniae Not Detected Not Detected 07/13/2025 2:17 PM CDT [facility] Swab Nasopharyngeal structure / Unknown Non-blood Collection / Unknown 07/13/2025 12:53 PM CDT 07/13/2025 1:01 PM CDT [facility] - 07/13/2025 2:17 PM CDT The assay is a qualitative multiplex PCR assay to aid in the diagnosis of respiratory pathogens through simultaneous qualitative detection and identification of multiple pathogens directly from nasopharyngeal swabs (NUCLEAR MEDICINE TECHNOLOGIST) from individuals with respiratory symptoms. Testing is performed using the DiurnalArray Respiratory Panel 2.1 (RP2.1) on the [employer]® System. The following organisms are identified using the Localler RP 2.1 Panel: Adenovirus, Human Coronavirus (229E, [...] verified by the microbiology laboratory at the [facility] (CLIA Accreditation # [id number] and CAP Accreditation # [id number]). Results must be interpreted within the context of all relevant clinical and laboratory findings. Assay should not be used for monitoring response to therapy. us Tip Mulligan MD MICROBIOLOGY - GENERAL ORDERABLE S Final Result [facility] [address] [place] [address] * (ABNORMAL) Procalcitonin (07/13/2025 12:41 PM CDT) Only the most recent of2 resultswithin the time period is included. Procalcitonin 0.33(H) <=0.08 ng/mL 07/13/2025 2:02 PM CDT [facility] Blood Peripheral blood specimen / Unknown Port / Unknown 07/13/2025 12:41 PM CDT 07/13/2025 1:03 PM CDT Narrative [facility] - 07/13/2025 2:02 PM CDT Procalcitonin > 2.00 ng/mL: Procalcitonin [...] with extended dilution as it exceeds the concrete grinder operator's recommended limit. Caution should be exercised when interpreting such values and done in conjunction with clinical context. us Tip Mulligan MD LAB BLOOD ORDERABLES Final Resul t [facility] [address] [place] [address] * X-ray Chest 1 View (07/13/2025 12:35 PM CDT) Anatomical Region Laterality Modality Chest Digital Radiogra phy 07/13/2025 1:10 PM CDT Impressions 07/13/2025 1:13 PM CDT No new airspace abnormality. Persistent bibasilar interstitial abnormalities as above. ACTIONABLE ITEMS/RECOMMENDATIONS*: None. *An Actionable Finding is a finding that may be unrelated to the original reason for imaging but potentially actionable, meaning further investigation may be necessary. The Actionable Findings Vigilance Unit (AFVU) assists medical providers with responding to additional radiologic findings that are unexpected and potentially actionable. Narrative 07/13/2025 1:13 PM CDT FULL RESULT: Examination: XR CHEST 1 VW on 07/13/2025 12:35 PM. Clinical History: Prostate adenocarcinoma, cholangiocarcinoma Indication: Fever Comparison: 09/29/2024 Technique: Frontal radiograph of the chest Findings: Support Apparatus: Left-sided central venous access catheter tip projects over right atrium. Biliary drainage catheter present.. Lungs/Pleura/Mediastinum: Prior sternotomy and coronary artery bypass graft. Poor inspiration. 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 Prior CT detected lung nodules not assessable radiographically. No edema, effusions or pneumothorax. Procedure Note Nicolas Brito MD - 07/13/2025 FULL RESULT: Examination: XR CHEST 1 VW on 07/13/2025 12:35 PM. Clinical History: Prostate adenocarcinoma, cholangiocarcinoma Indication: Fever Comparison: 09/29/2024 Technique: Frontal radiograph of the chest Findings: Support Apparatus: Left-sided central venous access catheter tip projectsover right atrium. Biliary drainage catheter present.. Lungs/Pleura/Mediastinum: Prior sternotomy and coronary artery bypassgraft. Poor inspiration. Bibasilar interstitial opacities likely reflectinterstitial fibrosis/pneumonitis, potentially drug related. Prior CTdetected lung nodules not assessable radiographically. No edema, effusionsor pneumothorax. IMPRESSION: No new airspace abnormality. Persistent bibasilar interstitialabnormalities as above. ACTIONABLE ITEMS/RECOMMENDATIONS*: None. *An Actionable Finding is a finding that may be unrelated to the originalreason for imaging but potentially actionable, meaning furtherinvestigation may be necessary. The Actionable Findings Vigilance Unit(AFVU) assists medical providers with responding to additional radiologicfindings that are unexpected and potentially actionable. Tip Mulilgan MD IM DIAGNOSTIC IMAGING ORDERABLE S Final Result * Type and Screen (07/12/2025 9:28 AM CDT) Only the most recent of6 resultswithin the time period is included. ABORh O POS 07/12/2025 9:03 AM CDT [facility] ABSC Negative 07/12/2025 9:03 AM CDT [facility] Clot Expiration 07/15/2025 23:59 07/12/2025 9:03 AM CDT [facility] Historical Record Check Complete 07/12/2025 9:03 AM CDT [facility] Blood Venous blood specimen / Unknown Port / Unknown 07/12/2025 9:28 AM CDT 07/12/2025 9:32 AM CDT us Marbella [facility] BLOOD BANK TEST ORDERABLES Final Result [facility] [address] [place] [address], [place] * CT Chest Abdomen Pelvis with and without Contrast (06/20/2025 12:26 PM CDT) Only the most recent of4 resultswithin the time period is included. Anatomical Region Laterality Modality Abdomen, Pelvis, Chest Computed Tomography 06/20/2025 2:23 PM CDT Impressions 06/20/2025 3:17 PM CDT * Small metastatic pulmonary nodules have increased in size and number. * New metastatic peritoneal nodules up to 1.7 cm adjacent to the left hepatic lobe and distal stomach. 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 * Hepatic metastases demonstrate mixed changes, some larger and some unchanged. * Unchanged metastatic portacaval node. ACTIONABLE ITEMS/RECOMMENDATIONS*: None. *An Actionable Finding is a finding that may be unrelated to the original reason for imaging but potentially actionable, meaning further investigation may be necessary. The Actionable Findings Vigilance Unit (AFVU) assists medical providers with responding to additional radiologic findings that are unexpected and potentially actionable. Narrative 06/20/2025 3:17 PM CDT FULL RESULT: Examination: CT CHEST ABDOMEN PELVIS W WO CONTRAST on 06/20/2025 12:26 PM. Clinical History: Cholangiocarcinoma. Indication: Staging for cholangiocarcinoma. Comparison: 04/05/2025 CT chest abdomen pelvis. Technique: CT CHEST ABDOMEN PELVIS W WO CONTRAST. Liver mass protocol FINDINGS: CHEST: Lungs and pleura: Increased size and number of small suspicious pulmonary nodules scattered bilaterally, for example a 0.3 cm left upper lobe nodule is new (18- 23), a 0.5 cm right upper lobe nodule was 0.3 cm (18-42), a newly conspicuous 0.5 cm right lower lobe nodule (18-76), a 0.5 cm right middle lobe nodule (18-70) was 0.3 cm, a 0.6 cm right upper lobe nodule (18-54) was 0.3 cm, a 0.6 cm right lower lobe nodule (18-89) was 0.5 cm. A 0.9 cm left basilar nodule is unchanged (18-106). No pleural effusion. Unchanged scattered bilateral subpleural reticulations. Lymph nodes: A nonspecific but more conspicuous 1.0 cm subcarinal node. Cardiovascular and Mediastinum: Three-vessel coronary artery calcifications. Other: Left chest wall Mediport with tip at the superior cavoatrial junction ABDOMEN AND PELVIS: Liver: Scattered hepatic metastases, some unchanged and some increased in size since prior exam, for example segment 8 metastasis measuring 1.7 cm is unchanged (12- 60) and a segment 5 metastasis has enlarged now 2.8 cm (12-53) versus 1.0 cm and prior. Central hepatic mass measuring 5.7 x 5.7 cm (12-43) is similar to slightly larger, was 5.1 x 5.1 cm. Gallbladder and bile ducts: Hilar cholangiocarcinoma encasing the metallic biliary stent which is unchanged in position. There is pneumobilia. There is no extrahepatic biliary duct dilation. There is mild intrahepatic biliary ductal dilation on the right which is similar to slightly improved from prior exam. Spleen: No splenomegaly. Pancreas: No pancreatic mass or ductal dilation Adrenal glands: No adrenal mass. Kidneys and ureters: No hydronephrosis. No suspicious renal lesion. Punctate nonobstructive bilateral renal calculi. Gastrointestinal Tract: Nondilated bowel. Urinary bladder and reproductive organs: Bladder wall thickening which is likely detrusor hypertrophy. Mild prostatomegaly Peritoneum/Retroperitoneum: Small ascites which is new from prior. A few metastatic peritoneal nodules in the left hepatic lobe/distal stomach which are new measuring up to 1.8 cm (series 17 images 259 and 263) Lymph Nodes: Metastatic portacaval node measuring 1.5 cm, no convincing change from prior exam. Vessels: Severe atherosclerotic disease. Mild narrowing of the main portal vein related to tumor, slightly greater than prior. The right posterior portal vein is severely narrowed related to tumor, slightly greater than prior. MUSCULOSKELETAL: No suspicious osseous lesion. Sternotomy wires. Procedure Note Eduardo Cronin MD - 06/20/2025 FULL RESULT: Examination: CT CHEST ABDOMEN PELVIS W WO CONTRAST on 06/20/2025 12:26 PM. Clinical History: Cholangiocarcinoma. Indication: Staging for cholangiocarcinoma. Comparison: 04/05/2025 CT chest abdomen pelvis. Technique: CT CHEST ABDOMEN PELVIS W WO CONTRAST. Liver mass protocol FINDINGS: CHEST: Lungs and pleura: Increased size and number of small suspicious pulmonarynodules scattered bilaterally, for example a 0.3 cm left upper lobe noduleis new (18- 23), a 0.5 cm right upper lobe nodule was 0.3 cm (18-42), anewly conspicuous 0.5 cm right lower lobe nodule (18-76), a 0.5 cm rightmiddle lobe nodule (18-70) was 0.3 cm, a 0.6 cm right upper lobe nodule(18-54) was 0.3 cm, a 0.6 cm right lower lobe nodule (18-89) was 0.5 cm. A0.9 cm left basilar nodule is unchanged (18-106). No pleural effusion.Unchanged scattered bilateral subpleural reticulations. Lymph nodes: A nonspecific but more conspicuous 1.0 cm subcarinal node. Cardiovascular and Mediastinum: Three-vessel coronary arterycalcifications. Other: Left chest wall Mediport with tip at the superior cavoatrialjunction ABDOMEN AND PELVIS: Liver: Scattered hepatic metastases, some unchanged and some increased insize since prior exam, for example segment 8 metastasis measuring 1.7 cmis unchanged (12- 60) and a segment 5 metastasis has enlarged now 2.8 cm(1253) versus 1.0 cm and prior. Central hepatic mass measuring 5.7 x 5.7cm (12-43) is similar to slightly larger, was 5.1 x 5.1 cm. Gallbladder and bile ducts: Hilar cholangiocarcinoma encasing the metallicbiliary stent which is unchanged in position. There is pneumobilia. Thereis no extrahepatic biliary duct dilation. There is mild intrahepaticbiliary ductal dilation on the right which is similar to slightly improvedfrom prior exam. Spleen: No splenomegaly. Pancreas: No pancreatic mass or ductal dilation Adrenal glands: No adrenal mass. Kidneys and ureters: No hydronephrosis. No suspicious renal lesion.Punctate nonobstructive bilateral renal calculi. Gastrointestinal Tract: Nondilated bowel. Urinary bladder and reproductive organs: Bladder wall thickening which islikely detrusor hypertrophy. Mild prostatomegaly Peritoneum/Retroperitoneum: Small ascites which is new from prior. A fewmetastatic peritoneal nodules in the left hepatic lobe/distal stomachwhich are new measuring up to 1.8 cm (series 17 images 259 and 263) Lymph Nodes: Metastatic portacaval node measuring 1.5 cm, no convincingchange from prior exam. Vessels: Severe atherosclerotic disease. Mild narrowing of the main portalvein related to tumor, slightly greater than prior. The right posteriorportal vein is severely narrowed related to tumor, slightly greater thanprior. MUSCULOSKELETAL: No suspicious osseous lesion. Sternotomy wires. IMPRESSION: * Small metastatic pulmonary nodules have increased in size and number. * New metastatic peritoneal nodules up to 1.7 cm adjacent to the lefthepatic lobe and distal stomach. * The hilar cholangiocarcinoma is similar to slightly larger than04/05/2025, increasing main and posterior right portal vein narrowing. * Hepatic metastases demonstrate mixed changes, some larger and someunchanged. * Unchanged metastatic portacaval node. ACTIONABLE ITEMS/RECOMMENDATIONS*: None. *An Actionable Finding is a finding that may be unrelated to the originalreason for imaging but potentially actionable, meaning furtherinvestigation may be necessary. The Actionable Findings Vigilance Unit(AFVU) assists medical providers with responding to additional radiologicfindings that are unexpected and potentially actionable. Dashawn Sutherland MD [facility] CT ORDERABLES Final Result * ACTH (06/14/2025 9:02 AM CDT) Only the most recent of2 resultswithin the time period is included. ACTH 14 7 - 63 pg/mL 06/14/2025 9 :42 AM [facility] Blood Venous blood specimen / Unknown Port / Unknown 06/14/2025 9:02 AM CDT 06/14/2025 9:06 AM CDT [facility] - 06/14/2025 9:42 AM CDT Reference range established based on adult population (7 - 10am draws). No established reference values for p.m. draws. Results greater than 1826 pg/mL may not be reliable due to matrix effect with extended dilution as it exceeds the concrete grinder operator's recommended limit. ACTH reference intervals are established for the morning hours from 7-10 am. Due to the circadian rhythm of ACTH levels in plasma, the sample collection time must be noted. Caution should be exercised when interpreting such values and done in conjunction with clinical context. [facility] LAB BLOOD ORDERABLES Final Resul t Performing Organization Address City/[facility] Co de Phone Number [address], [address] [address] * (ABNORMAL) Free T3 (06/14/2025 9:02 AM CDT) Free T3 1.5(L) 2.0 - 4.4 pg/mL 06/14/2025 9:48 AM CDT [facility] Blood Venous blood specimen / Unknown Port / Unknown 06/14/2025 9:02 AM CDT 06/14/2025 9:06 AM CDT [facility] LAB BLOOD ORDERABLES Final Resul t Performing Organization Address [facility] Co de Phone Number [address], [address] [address] * Cortisol, Total (06/14/2025 9:02 AM CDT) Only the most recent of2 resultswithin the time period is included. Cortisol 12.29 4.82 - 19.50 mcg/dL 06/14/2025 9:48 AM CDT [facility] Blood Venous blood specimen / Unknown Port / Unknown 06/14/2025 9:02 AM CDT 06/14/2025 9:06 AM CDT Narrative [facility] - 06/14/2025 9:48 AM CDT Cortisol reference intervals are established for the morning hours from 6-10 am and afternoon hours 4-8 pm. Due to circadian rhythm of cortisol levels in serum and plasma, the sample collection time must be noted. Caution should be exercised when interpreting such values and done in conjunction with clinical context. Serum Cortisol Reference Ranges for >/= 21 years old: Morning (6-10 am): 4.82 - 19.5 mcg/dL Afternoon (4-8 pm): 2.47 - 11.9 mcg/dL Marbella GRAJEDA LAB BLOOD ORDERABLES Final Resul t Performing Organization Address [facility] Co de Phone Number [address], [facility] [address] [place] [address] * (ABNORMAL) Hemoglobin A1c (04/20/2025 10:02 AM CDT) Only the most recent of5 resultswithin the time period is included. [facility] Hemoglobin A1c 6.5(H) 4.3 - 5.6 % 04/20/2025 10:20 AM T [facility] Blood Venous blood specimen / Unknown Port / Unknown 04/20/2025 10:02 AM CDT 04/20/2025 10:06 AM CDT Narrative [facility] - 04/20/2025 10:20 AM CDT HbA1c values >=6.5% are diagnostic of diabetes mellitus. Diagnosis should be confirmed by repeat testing. Therapeutic Action suggested: >8.0% HbA1c; Goal of therapy: <7.0% HbA1c Gabbi Werner APRN LAB BLOOD ORDERABLES Debbi l Result Performing Organization Address City/[facility] Co de Phone Number [address], [facility] [address] [place] [address] * (ABNORMAL) POC Creatinine (04/05/2025 1:31 PM CDT) [facility] POC Creatinine 1.3 0.6 - 1.3 mg/dL 04/05/2025 1:35 PM CDT [facility] Comment:Medications, especia lly hydroxyurea or supplements, such as ascorbate, can interfere with test results causing a falsely and significantly higher result than expected. If a problem is suspected with a patient's result, a sample should be sent to the laboratory for confirmatory testing. POC eGFR 56(L) >=60 mL/min/1.7 3 sq. m 04/05/2025 1:35 PM CDT [facility] Comment: The eGFRcr is calculated with the [...] nor G2 fulfill criteria for CKD. Blood 04/05/2025 1:31 PM CDT 04/05/2025 1:35 PM CDT [facility] - 04/05/2025 1:35 PM CDT Method description: The i-STAT is [...] analyte concentration by an electrochemical assay. us Dashawn Sutherland MD POCT ORDERABLES - DEVICE Final Result [facility] [address] [facility], [facility] [address] [place] [address] * (ABNORMAL) Galectin-3 (04/04/2025 9:09 AM CDT) Only the most recent of7 resultswithin the time period is included. Galectin3 S-Logan 29.4(H) <=22.1 ng/mL 04/12/2025 11:13 AM CDT [facility] Comment: Elevated galectin-3 is associated with greater cardiovascular risk and poor outcome in heart failure patients: </= 17.8 ng/mL (low risk); 17.9-25.9 ng/mL (intermediate risk); >25.9 ng/mL (high risk). Results should be interpreted in the context of the individual patient presentation. Test Performed by: [place] [address] Rug Measurer: Mau Thakkar Ph.D.; CLIA# [id number] Blood Venous blood specimen / Unknown Port / Unknown 04/04/2025 9:09 AM CDT 04/04/2025 9:16 AM CDT [facility] Kelli GRAJEDA LAB BLOOD ORDERABLES Final Resul t [facility] * PSA (02/07/2025 10:05 AM CDT) Pathologist [facility] Prostate Specific Antigen 0.1 <=4.0 ng/mL 02/07/2025 12:26 PM CDT [facility] PSA Indication Screening 02/07/2025 12:26 PM CDT [facility] Blood Peripheral blood specimen / Unknown Port / Unknown 02/07/2025 10:05 AM CDT 02/07/2025 10:10 AM CDT [facility] - 02/07/2025 12:26 PM CDT The assay is intended for use in males aged 50 years or older. Reference ranges have not been validated for patients outside those age ranges; therefore, the results should be interpreted in the context of the patient's clinical condition. Results greater than 4519 ng/mL may not be reliable due to matrix effect with extended dilution as it exceeds the concrete grinder operator's recommended limit. Caution should be exercised when interpreting such values and done in conjunction with clinical context. This test is measured by electrochemiluminescence immunoassay on [employer] immunoassay analyzers. Results obtained in different methods are not interchangeable. us Dashawn Sutherland MD LAB BLOOD ORDERABLES Final Resu lt Performing Organization Address [facility] Co de Phone Number [address], [address] [address] * CEA (01/10/2025 6:45 AM INFORMATION TECHNOLOGY ACCOUNT MANAGER) Only the most recent of4 resultswithin the time period is included. Carcinoembryonic Antigen 2.5 <=3.8 ng/mL 01/10/2025 7:36 AM INFORMATION TECHNOLOGY ACCOUNT MANAGER [facility] Blood Venous blood specimen / Unknown Port / Unknown 01/10/2025 6:45 AM INFORMATION TECHNOLOGY ACCOUNT MANAGER 01/10/2025 6:49 AM INFORMATION TECHNOLOGY ACCOUNT MANAGER [facility] - 01/10/2025 7:36 AM INFORMATION TECHNOLOGY ACCOUNT MANAGER Reference Ranges (age 20-69 years): Non-smoker: <= 3.8 ng/mL Smoker: <= 5.5 ng/mL This test is measured by electrochemiluminescence immunoassay on [employer] immunoassay analyzers. Results obtained in different methods are not interchangeable. us Marbella GRAJEDA LAB BLOOD ORDERABLES Final Resul t Performing Organization Address [facility] Co de Phone Number [address], [facility] [address] [place] [address] * CT Abdomen Pelvis with Contrast (11/05/2024 8:46 AM INFORMATION TECHNOLOGY ACCOUNT MANAGER) Only the most recent of2 resultswithin the time period is included. Anatomical Region Laterality Modality Abdomen, Pelvis Computed Tomogra phy 11/08/2024 3:54 PM INFORMATION TECHNOLOGY ACCOUNT MANAGER Impressions 11/08/2024 4:34 PM INFORMATION TECHNOLOGY ACCOUNT MANAGER Interval improvement. The dominant abscess in the left lobe of the liver is significantly smaller. The smaller abscesses have resolved. Pleural effusions and ascites have resolved. ACTIONABLE ITEMS/RECOMMENDATIONS*: None. *An Actionable Finding is a finding that may be unrelated to the original reason for imaging but potentially actionable, meaning further investigation may be necessary. The Actionable Findings Vigilance Unit (AFVU) assists medical providers with responding to additional radiologic findings that are unexpected and potentially actionable. Narrative 11/08/2024 4:34 PM INFORMATION TECHNOLOGY ACCOUNT MANAGER FULL RESULT: Examination: CT ABDOMEN PELVIS W CONTRAST on 11/05/2024 8:46 AM. Clinical History: Acute cholangitis Liver abscess due to cholangitis. Indication: acute cholangitis +/- hepatic abscess s/p abx follow up. Comparison: None. Technique: CT ABDOMEN PELVIS W CONTRAST. FINDINGS: Lower Thorax: Pleural effusions have resolved. There is stable interstitial shadowing in both lung bases. No suspicious pulmonary nodules. Hepatobiliary: There is hepatic steatosis. The dominant abscess in the lateral segment of the left lobe is smaller, now measuring 3 cm, previously 4.2 cm (6:16). The smaller satellite lesions in the right and left lobes have completely resolved. There is heterogenous enhancement of the liver parenchyma around the residual abscess that likely reflects inflammation. There is a metallic biliary stent extending to the left lobe. No biliary dilatation. There is stable thickening of the common bile duct. The gallbladder is absent. Spleen: No splenomegaly or splenic mass. Pancreas: No mass or ductal dilatation. Adrenal Glands: No mass. Kidneys, Ureters, Bladder: No hydronephrosis. Nonobstructing right renal stones. There are bilateral renal cysts. No suspicious renal lesion. No bladder mass. Gastrointestinal Tract: There is no bowel obstruction or mass. Pelvic Organs: Stable prostatomegaly. Peritoneum/Retroperitoneum: Previously seen ascites has resolved.. No peritoneal masses. Stable fat necrosis in the anterior epigastrium. Lymph Nodes: There is no abdominal or pelvic adenopathy. Musculoskeletal: No suspicious skeletal lesion. Procedure Note Mitch Dsouza MD - 11/08/2024 FULL RESULT: Examination: CT ABDOMEN PELVIS W CONTRAST on 11/05/2024 8:46 AM. Clinical History: Acute cholangitis Liver abscess due to cholangitis. Indication: acute cholangitis +/- hepatic abscess s/p abx follow up. Comparison: None. Technique: CT ABDOMEN PELVIS W CONTRAST. FINDINGS: Lower Thorax: Pleural effusions have resolved. There is stableinterstitial shadowing in both lung bases. No suspicious pulmonarynodules. Hepatobiliary: There is hepatic steatosis. The dominant abscess in thelateral segment of the left lobe is smaller, now measuring 3 cm,previously 4.2 cm (6:16). The smaller satellite lesions in the right andleft lobes have completely resolved. There is heterogenous enhancement ofthe liver parenchyma around the residual abscess that likely reflectsinflammation. There is a metallic biliary stent extending to the leftlobe. No biliary dilatation. There is stable thickening of the common bileduct. The gallbladder is absent. Spleen: No splenomegaly or splenic mass. Pancreas: No mass or ductal dilatation. Adrenal Glands: No mass. Kidneys, Ureters, Bladder: No hydronephrosis. Nonobstructing right renalstones. There are bilateral renal cysts. No suspicious renal lesion. No bladder mass. Gastrointestinal Tract: There is no bowel obstruction or mass. Pelvic Organs: Stable prostatomegaly. Peritoneum/Retroperitoneum: Previously seen ascites has resolved.. Noperitoneal masses. Stable fat necrosis in the anterior epigastrium. Lymph Nodes: There is no abdominal or pelvic adenopathy. Musculoskeletal: No suspicious skeletal lesion. IMPRESSION: Interval improvement. The dominant abscess in the left lobe of the liver is significantlysmaller. The smaller abscesses have resolved. Pleural effusions and ascites have resolved. ACTIONABLE ITEMS/RECOMMENDATIONS*: None. *An Actionable Finding is a finding that may be unrelated to the originalreason for imaging but potentially actionable, meaning furtherinvestigation may be necessary. The Actionable Findings Vigilance Unit(AFVU) assists medical providers with responding to additional radiologicfindings that are unexpected and potentially actionable. Kori GRAJEDA IMG CT ORDERABLES Final Re sult * EKG, 12-Lead (10/09/2024) Only the most recent of4 resultswithin the time period is included. Brenda Moreno MD ECG ORDERABLES Final Result [facility] IECG * (ABNORMAL) Direct and Indirect Bilirubin (10/07/2024 4:55 AM INFORMATION TECHNOLOGY ACCOUNT MANAGER) Only the most recent of8 resultswithin the time period is included. Bilirubin Direct 0.9(H) 0.0 - 0.2 mg/dL 10/07/2024 5:58 AM INFORMATION TECHNOLOGY ACCOUNT MANAGER [facility] Bilirubin Indirect 0.4 0.0 - 1.0 mg/dL 10/07/2024 5:58 AM INFORMATION TECHNOLOGY ACCOUNT MANAGER [facility] Blood Venous blood specimen / Unknown Port / Unknown 10/07/2024 4:55 AM INFORMATION TECHNOLOGY ACCOUNT MANAGER 10/07/2024 5:04 AM INFORMATION TECHNOLOGY ACCOUNT MANAGER us Beverley Galvez MD LAB BLOOD ORDERAB LES Final Result [facility] Unless otherwise noted, all lab tests performed by: Division of Pathology and Laboratory Medicine [address] [place] [id number] * IR US GUIDED BIOPSY LIVER (10/06/2024 5:08 PM INFORMATION TECHNOLOGY ACCOUNT MANAGER) Anatomical Region Laterality Modality Abdomen/Pelvis, Organ (liver/spleen/kidney) Computed Tomography, Ultraso und Narrative 10/06/2024 9:29 PM INFORMATION TECHNOLOGY ACCOUNT MANAGER Date of Procedure: 10/06/24 Attending Physician: Rick Kline MD Senior Pastor: None Pre Procedure Diagnosis: Liver cell carcinoma [[id number]] Post Procedure Diagnosis: Unchanged Indication: New mass / nodule for tissue diagnosis Protocol Number: N/A Title of Procedure: Percutaneous Ultrasound-Guided Biopsy Operative Findings: Percutaneous image-guided biopsy of left liver mass. Attempted aspiration of low echogenic area did not result in any fluid. Consent: The procedure, risks, indications and alternatives were explained. All questions were answered and informed consent was obtained. I have reviewed the history and physical dictated by the ANIA / fellow. Sedation/Anesthesia: Anesthesia provided by Anesthesia Department. Procedure in Detail: A time out was performed prior to the start of the procedure and the correct patient, procedure, presence of consent, site, and side were confirmed with all members of the team. With the patient in the supine position, the skin overlying the area of interest was prepped and draped in the usual sterile fashion. Lidocaine 1% was used for local anesthesia. Using an anterior approach under Ultrasound image-guidance, a 17 gauge needle was advanced down to the left liver mass. An image was obtained and placed into the medical record. Samples were obtained for evaluation. Sampling: Core Biopsy: An 18 gauge needle used to obtain samples for surgical pathology evaluation. Total number of samples: 4 Specimens Disposition: Diagnostic Biopsy: The biopsy samples were submitted to pathology. Microbiology samples: Additional samples were obtained and submitted for microbiologic evaluation. Additional Comments: Attempts were made to aspirate a low echogenic area suggestive of fluid. 17 gauge needle was placed in the lesion, but fluid could not be aspirated, most likely this is an area of necrosis. Estimated Blood Loss: Minimal Immediate Complications: None Disposition: PACU Plan: No follow-up with Interventional Radiology required. us Beverley Galvez MD IMG IR ORDERABLES Final Result * IR US FLUID ASPIRATION (10/06/2024 5:08 PM INFORMATION TECHNOLOGY ACCOUNT MANAGER) Anatomical Region Laterality Modality Computed Tomogra phy, Ultrasound Narrative 10/11/2024 1:58 PM INFORMATION TECHNOLOGY ACCOUNT MANAGER Table formatting from the original result was not included. Narrative & Impression Date of Procedure: 10/06/24 Attending Physician: Rick Kline MD Senior Pastor: None Pre Procedure Diagnosis: Liver cell carcinoma [[id number]] Post Procedure Diagnosis: Unchanged Indication: New mass / nodule for tissue diagnosis Protocol Number: N/A Title of Procedure: Percutaneous Ultrasound-Guided Biopsy Operative Findings: Percutaneous image-guided biopsy of left liver mass. Attempted aspiration of low echogenic area did not result in any fluid. Consent: The procedure, risks, indications and alternatives were explained. All questions were answered and informed consent was obtained. I have reviewed the history and physical dictated by the ANIA / fellow. Sedation/Anesthesia: Anesthesia provided by Anesthesia Department. Procedure in Detail: A time out was performed prior to the start of the procedure and the correct patient, procedure, presence of consent, site, and side were confirmed with all members of the team. With the patient in the supine position, the skin overlying the area of interest was prepped and draped in the usual sterile fashion. Lidocaine 1% was used for local anesthesia. Using an anterior approach under Ultrasound image-guidance, a 17 gauge needle was advanced down to the left liver mass. An image was obtained and placed into the medical record. Samples were obtained for evaluation. Sampling: Core Biopsy: An 18 gauge needle used to obtain samples for surgical pathology evaluation. Total number of samples: 4 Specimens Disposition: Diagnostic Biopsy: The biopsy samples were submitted to pathology. Microbiology samples: Additional samples were obtained and submitted for microbiologic evaluation. Additional Comments: Attempts were made to aspirate a low echogenic area suggestive of fluid. 17 gauge needle was placed in the lesion, but fluid could not be aspirated, most likely this is an area of necrosis. Estimated Blood Loss: Minimal Immediate Complications: None Disposition: PACU Plan: No follow-up with Interventional Radiology required. Beverley Galvez MD IMG IR ORDERABLES Final Result * AFB Culture w/ Smear (10/06/2024 4:59 PM INFORMATION TECHNOLOGY ACCOUNT MANAGER) AFB Culture No Acid-Fast Bacilli isolated at 8 weeks. 12/02/2024 12:02 PM INFORMATION TECHNOLOGY ACCOUNT MANAGER [facility] Tissue (Liver) Non-blood Collection / Unknown 10/06/2024 4:59 PM INFORMATION TECHNOLOGY ACCOUNT MANAGER 10/06/2024 6:15 PM INFORMATION TECHNOLOGY ACCOUNT MANAGER Narrative [facility] - 12/02/2024 12:02 PM INFORMATION TECHNOLOGY ACCOUNT MANAGER Cultures are held for 8 weeks before finalization. Rick Kline MD MICROBIOLOGY - GENERAL ORDERABLE S Final Result [facility] Unless otherwise noted, all lab tests performed by: Division of Pathology and Laboratory Medicine [address] [place] [id number] * AFB Smear (10/06/2024 4:59 PM INFORMATION TECHNOLOGY ACCOUNT MANAGER) AFB Smear - Truant Stain No Acid-Fast Bacilli seen on fluorescent stain of Direct Specimen. No AFB seen 10/07/2024 11:18 AM INFORMATION TECHNOLOGY ACCOUNT MANAGER [facility] Tissue (Liver) Non-blood Collection / Unknown 10/06/2024 4:59 PM INFORMATION TECHNOLOGY ACCOUNT MANAGER 10/06/2024 6:15 PM INFORMATION TECHNOLOGY ACCOUNT MANAGER Rick Kline MD MICROBIOLOGY - GENERAL ORDERABLE S Final Result [facility] Unless otherwise noted, all lab tests performed by: Division of Pathology and Laboratory Medicine [address] [place] [id number] * Fungal Culture w/ Smear (10/06/2024 4:59 PM INFORMATION TECHNOLOGY ACCOUNT MANAGER) Fungal Culture No Fungus isolated at 4 weeks. 11/03/2024 7:01 PM INFORMATION TECHNOLOGY ACCOUNT MANAGER [facility] Fungal Smear No Fungi seen in direct smear. 11/03/2024 7:01 PM INFORMATION TECHNOLOGY ACCOUNT MANAGER [facility] Comment:Test performed by fl uorescent stain methodology. Tissue (Liver) Non-blood Collection / Unknown 10/06/2024 4:59 PM INFORMATION TECHNOLOGY ACCOUNT MANAGER 10/06/2024 6:15 PM INFORMATION TECHNOLOGY ACCOUNT MANAGER Narrative [facility] - 11/03/2024 7:01 PM INFORMATION TECHNOLOGY ACCOUNT MANAGER Cultures are held for 4 weeks before finalization. Rick Kline MD MICROBIOLOGY - GENERAL ORDERABLE S Final Result [facility] Unless otherwise noted, all lab tests performed by: Division of Pathology and Laboratory Medicine [address] [place] [id number] * Tissue/FNA Culture w/ Gram Stain (10/06/2024 4:59 PM INFORMATION TECHNOLOGY ACCOUNT MANAGER) Tissue/FNA Culture No Growth. 10/13/2024 8:27 AM INFORMATION TECHNOLOGY ACCOUNT MANAGER [facility] Gram Stain No WBCs seen. 10/13/2024 8:27 AM INFORMATION TECHNOLOGY ACCOUNT MANAGER [facility] Gram Stain No organisms seen. 10/13/2024 8:27 AM INFORMATION TECHNOLOGY ACCOUNT MANAGER [facility] Tissue (Liver) Non-blood Collection / Unknown 10/06/2024 4:59 PM INFORMATION TECHNOLOGY ACCOUNT MANAGER 10/06/2024 6:15 PM INFORMATION TECHNOLOGY ACCOUNT MANAGER Rick Kline MD MICROBIOLOGY - GENERAL ORDERABLE S Final Result [facility] Unless otherwise noted, all lab tests performed by: Division of Pathology and Laboratory Medicine [address] [place] [id number] * Anaerobic Culture (10/06/2024 4:59 PM INFORMATION TECHNOLOGY ACCOUNT MANAGER) Anaerobic Culture No Anaerobes isolated. 10/16/2024 7:10 AM INFORMATION TECHNOLOGY ACCOUNT MANAGER [facility] Tissue (Liver) Non-blood Collection / Unknown 10/06/2024 4:59 PM INFORMATION TECHNOLOGY ACCOUNT MANAGER 10/06/2024 6:15 PM INFORMATION TECHNOLOGY ACCOUNT MANAGER us Rick Kline MD MICROBIOLOGY - GENERAL ORDERABLE S Final Result [facility] Unless otherwise noted, all lab tests performed by: Division of Pathology and Laboratory Medicine [facility] [place] [address] * Pathology Biopsy Interpretation (10/06/2024 4:42 PM INFORMATION TECHNOLOGY ACCOUNT MANAGER) Submitted Clinical History Fever with chills [R50.9] Hyperbilirubinemia [E80.6] Leukocytosis [D72.829] Rssct-fz-imylsdc renal failure [N18.9, N17.9] Cholangiocarcinoma [C22.1] Hypoglycemia, not otherwise specified [E16.2] Acute cholangitis [K83.09] Abnormal liver function [K76.89] Liver enzymes level above reference range [R74.8] Fever presenting with conditions classified elsewhere [R50.81] Sepsis without septic shock [A41.9] Bacteremia caused by Gram-negative bacteria [A41.50] Malnutrition of moderate degree [E44.0] Other abnormalities of gait and mobility [R26.89] Difficulty in walking [R26.2] Liver cell carcinoma [C22.0] 10/08/2024 4:37 PM INFORMATION TECHNOLOGY ACCOUNT MANAGER [facility] Diagnosis A: Liver, CT-guided biopsy: Liver parenchyma with mild steatosis, lobular inflammation, focal sinusoidal congestion and dilation, mild portal inflammation with interface activity, and acute cholangitis and bile ductular proliferation. (See comment) No malignancy identified. Deeper levels examined. 10/08/2024 4:37 PM INFORMATION TECHNOLOGY ACCOUNT MANAGER [facility] at 1637 INFORMATION TECHNOLOGY ACCOUNT MANAGER Comment The histologic findings are non-specific but can be seen in liver adjacent to a mass/lesion. A repeat biopsy is recommended if clinically indicated. 10/08/2024 4:37 PM [facility] Gross Description A: Liver, liver biopsy: Three luque-brown core biopsies ranging from 1.0 to 1.9 cm in length with a diameter of less than 0.1 cm, entirely submitted in A1. GM 10/08/2024 4:37 PM [facility] Biomarker Block(s) N/A 10/08/2024 4:37 PM [facility] Disclaimer "Some tests reported here may have been developed and performance characteristics determined by [facility] Pathology and Laboratory Medicine. These tests have not been specifically cleared or approved by the U.S. Food and Drug Administration. If applicable, controls were reviewed and showed appropriate reactivity." 10/08/2024 4:37 PM [facility] Tissue (Liver) 10/06/2024 4: 42 PM INFORMATION TECHNOLOGY ACCOUNT MANAGER 10/07/2024 8:14 AM INFORMATION TECHNOLOGY ACCOUNT MANAGER us Beverley Galvez MD LAB PATHOLOGY ORD ERABLES Final Result [id number] [place] [address], [place] * Urinalysis with Microscopic (10/06/2024 11:58 AM INFORMATION TECHNOLOGY ACCOUNT MANAGER) Only the most recent of2 resultswithin the time period is included. Urine Appearance Clear Clear 10/06/20 24 1:18 PM INFORMATION TECHNOLOGY ACCOUNT MANAGER [facility] Comment:This result was prev iously suppressed from the chart. Urine Color Straw Colorless, Straw, Yellow, Dark Yellow, Straw-Yellow 10/06/2024 1:18 PM INFORMATION TECHNOLOGY ACCOUNT MANAGER [facility] Comment:This result was prev iously suppressed from the chart. Urine Specific [place] 1.013 1.003 - 1.035 10/06/2024 1:18 PM INFORMATION TECHNOLOGY ACCOUNT MANAGER [facility] Comment:This result was prev iously suppressed from the chart. Urine pH 7.0 5.0 - 8.0 10/06/2024 1:18 PM INFORMATION TECHNOLOGY ACCOUNT MANAGER [facility] Comment:This result was prev iously suppressed from the chart. Urine Glucose Negative Negative mg/dL 10/06/2024 1:18 PM INFORMATION TECHNOLOGY ACCOUNT MANAGER [facility] Comment:This result was prev iously suppressed from the chart. Urine Ketones Negative Negative mg/dL 10/06/2024 1:18 PM [facility] Comment:This result was prev iously suppressed from the chart. Urine Blood Negative Negative 10/06/2024 1:18 PM [facility] Comment:This result was prev iously suppressed from the chart. Urine Protein Negative Negative mg/dL 10/06/2024 1:18 PM [facility] Comment:This result was prev iously suppressed from the chart. Urine Bilirubin Negative Negative 1:18 PM [facility] Urine Urobilinogen Negative Negative 10/06/2024 1:18 PM [facility] Urine Nitrite Negative Negative 10/06/2024 1:18 PM [facility] Comment:This result was prev iously suppressed from the chart. Urine Leukocyte Esterase Negative Negative 10/06/2024 1:18 PM [facility] Comment:This result was prev iously suppressed from the chart. Urine WBC 1 <=2 /HPF 10/06/2024 1:18 PM [facility] Urine RBC <1 <=2 /HPF 10/06/2024 1:18 PM [facility] Urine Mucous Not Seen Not Seen, Trace /HPF 10/06/2024 1:18 PM [facility] Comment:This result was prev iously suppressed from the chart. Urine Bacteria Not Seen Not Seen /HPF 10/06/2024 1:18 PM [facility] Comment:This result was prev iously suppressed from the chart. Urine Squamous Epithelial Cells OCC Not Seen, OCC, Rare /HPF 10/06/2024 1:18 PM [facility] Comment:This result was prev iously suppressed from the chart. Urine Voided urine specimen / Unknown Non-blood Collection / Unknown 10/06/2024 11:58 AM INFORMATION TECHNOLOGY ACCOUNT MANAGER 10/06/2024 12:57 PM INFORMATION TECHNOLOGY ACCOUNT MANAGER Narrative [facility] - 10/06/2024 1:18 PM INFORMATION TECHNOLOGY ACCOUNT MANAGER Some reporting parameters within the Urinalysis test have changed due to the implementation of new instrumentation in the [facility] [place], allowing greater sensitivity of measurement. Urinalysis results reported by the [facility] using existing instrumentation, as well as Urinalysis testing performed manually or by back-up methodology at the main campus, will remain relatively unchanged. New reporting parameters and units will now be reported for all campuses. Brenda Moreno MD URINE ORDERABLES Debbi l Result Performing Organization Address [facility] Co de Phone Number [facility] Unless otherwise noted, all lab tests performed by: Division of Pathology and Laboratory Medicine [address] [place] [id number] * Sodium Level, Urine (10/06/2024 11:58 AM INFORMATION TECHNOLOGY ACCOUNT MANAGER) Only the most recent of2 resultswithin the time period is included. Urine Sodium 132 mmol/L 10/06/2024 2:00 PM INFORMATION TECHNOLOGY ACCOUNT MANAGER [facility] Comment:Normal range not tomas ilable for collections less than 24 hours in duration. Urine Voided urine specimen / Unknown Non-blood Collection / Unknown 10/06/2024 11:58 AM INFORMATION TECHNOLOGY ACCOUNT MANAGER 10/06/2024 12:57 PM INFORMATION TECHNOLOGY ACCOUNT MANAGER Brenda Moreno MD URINE ORDERABLES Debbi l Result Performing Organization Address [facility] de Phone Number [facility] Unless otherwise noted, all lab tests performed by: Division of Pathology and Laboratory Medicine [address] [place] [id number] * Osmolality Urine (10/06/2024 11:58 AM INFORMATION TECHNOLOGY ACCOUNT MANAGER) Only the most recent of2 resultswithin the time period is included. Urine Osmolality 383 50 - 1,400 mOsm/kg H2O 10/06/2024 1:27 PM INFORMATION TECHNOLOGY ACCOUNT MANAGER [facility] Comment:Urinary osmolality m ay vary widely, depending on the state of hydration. Random urine osmolality can range from 50 to 1400 mOsm/kg H2O depending on fluid intake. In individuals on average fluid intake, urine osmolality is typically 300-900 mOsm/kg H2O. Units of measure: mOsm per Kg of water. Urine Voided urine specimen / Unknown Non-blood Collection / Unknown 10/06/2024 11:58 AM INFORMATION TECHNOLOGY ACCOUNT MANAGER 10/06/2024 12:57 PM INFORMATION TECHNOLOGY ACCOUNT MANAGER Brenda Moreno MD URINE ORDERABLES Debbi l Result Performing Organization Address [facility] Co de Phone Number [facility] Unless otherwise noted, all lab tests performed by: Division of Pathology and Laboratory Medicine [address] [place] [id number] * (ABNORMAL) Creatinine Urine (10/06/2024 11:58 AM INFORMATION TECHNOLOGY ACCOUNT MANAGER) Only the most recent of2 resultswithin the time period is included. Pathologist [facility] Urine Creatinine 36.7(L) 40.0 - 278.0 mg/dL 10/06/2024 2:00 PM INFORMATION TECHNOLOGY ACCOUNT MANAGER [facility] Urine Voided urine specimen / Unknown Non-blood Collection / Unknown 10/06/2024 11:58 AM INFORMATION TECHNOLOGY ACCOUNT MANAGER 10/06/2024 12:57 PM INFORMATION TECHNOLOGY ACCOUNT MANAGER Narrative [facility] - 10/06/2024 2:00 PM INFORMATION TECHNOLOGY ACCOUNT MANAGER The reference range listed is for first morning urine collection. Brenda Moreno MD URINE ORDERABLES Debbi l Result Performing Organization Address [facility] de Phone Number [facility] Unless otherwise noted, all lab tests performed by: Division of Pathology and Laboratory Medicine [address] [place] [id number] * Urinalysis w/Microscopic if Indicated (10/05/2024 3:04 AM INFORMATION TECHNOLOGY ACCOUNT MANAGER) Only the most recent of3 resultswithin the time period is included. Urine Appearance Clear Clear 10/05/20 3:46 AM INFORMATION TECHNOLOGY ACCOUNT MANAGER [facility] Urine Color Straw Colorless, Straw, Yellow, Dark Yellow, Straw-Yellow 10/05/2024 3:46 AM INFORMATION TECHNOLOGY ACCOUNT MANAGER [facility] Urine Specific [place] 1.022 1.003 - 1.035 10/05/2024 3:46 AM [facility] Urine pH 6.5 5.0 - 8.0 10/05/2024 3:46 AM INFORMATION TECHNOLOGY ACCOUNT MANAGER [facility] Urine Glucose Negative Negative mg/dL 10/05/2024 3:46 AM INFORMATION TECHNOLOGY ACCOUNT MANAGER [facility] Urine Ketones Negative Negative mg/dL 10/05/2024 3:46 AM INFORMATION TECHNOLOGY ACCOUNT MANAGER [facility] Urine Blood Negative Negative 10/05/2024 3:46 AM INFORMATION TECHNOLOGY ACCOUNT MANAGER [facility] Urine Protein Negative Negative mg/dL 10/05/2024 3:46 AM INFORMATION TECHNOLOGY ACCOUNT MANAGER [facility] Urine Bilirubin Negative Negative 3:46 AM INFORMATION TECHNOLOGY ACCOUNT MANAGER [facility] Urine Urobilinogen Negative Negative 10/05/2024 3:46 AM INFORMATION TECHNOLOGY ACCOUNT MANAGER [facility] Urine Nitrite Negative Negative 10/05/2024 3:46 AM INFORMATION TECHNOLOGY ACCOUNT MANAGER [facility] Urine Leukocyte Esterase Negative Negative 10/05/2024 3:46 AM INFORMATION TECHNOLOGY ACCOUNT MANAGER [facility] Urine (Urine Clean Catch) Non-blood Collection / Unknown 10/05/2024 3:04 AM INFORMATION TECHNOLOGY ACCOUNT MANAGER 10/05/2024 3:40 AM INFORMATION TECHNOLOGY ACCOUNT MANAGER Narrative [facility] - 10/05/2024 3:46 AM INFORMATION TECHNOLOGY ACCOUNT MANAGER Some reporting parameters within the Urinalysis test have changed due to the implementation of new instrumentation in the Main [place], allowing greater sensitivity of measurement. Urinalysis results reported by the [facility] using existing instrumentation, as well as Urinalysis testing performed manually or by back-up methodology at the main [place], will remain relatively unchanged. New reporting parameters and units will now be reported for all campuses. No microscopic exam performed; physiochemical findings are negative us Mert Haque LOADER OPERATOR/GROUND LEADER URINE ORDERABLES Final Resul t [facility] Unless otherwise noted, all lab tests performed by: Division of Pathology and Laboratory Medicine [address] [place] [id number] * Homocysteine Total (10/02/2024 4:58 AM INFORMATION TECHNOLOGY ACCOUNT MANAGER) Homocysteine Total 8.7 <=15.0 mcmol/L 10/02/2024 5:27 AM INFORMATION TECHNOLOGY ACCOUNT MANAGER [facility] Blood Venous blood specimen / Unknown Port / Unknown 10/02/2024 4:58 AM INFORMATION TECHNOLOGY ACCOUNT MANAGER 10/02/2024 5:07 AM INFORMATION TECHNOLOGY ACCOUNT MANAGER Narrative [facility] - 10/02/2024 5:27 AM INFORMATION TECHNOLOGY ACCOUNT MANAGER Reference range established based on adult population Beverley Galvez MD LAB BLOOD ORDERAB LES Final Result [facility] Unless otherwise noted, all lab tests performed by: Division of Pathology and Laboratory Medicine [address] [place] [id number] * (ABNORMAL) Vitamin B12 Level (10/02/2024 4:58 AM INFORMATION TECHNOLOGY ACCOUNT MANAGER) Vitamin B12 Level 1,600(H) 232 - 1,245 pg/mL 10/02/2024 5:44 AM INFORMATION TECHNOLOGY ACCOUNT MANAGER [facility] Is patient fasting? Yes 10/02/2024 5:44 AM INFORMATION TECHNOLOGY ACCOUNT MANAGER [facility] Blood Venous blood specimen / Unknown Port / Unknown 10/02/2024 4:58 AM INFORMATION TECHNOLOGY ACCOUNT MANAGER 10/02/2024 5:06 AM INFORMATION TECHNOLOGY ACCOUNT MANAGER Narrative [facility] - 10/02/2024 5:44 AM INFORMATION TECHNOLOGY ACCOUNT MANAGER Reference range established based on adult population. Beverley Galvez MD LAB BLOOD ORDERAB LES Final Result Performing Organization Address [facility] Co de Phone Number [facility] Unless otherwise noted, all lab tests performed by: Division of Pathology and Laboratory Medicine [address] [place] [id number] * Folate Level (10/02/2024 4:57 AM INFORMATION TECHNOLOGY ACCOUNT MANAGER) Folate Level 12.1 4.8 - 24.2 ng/mL 10/02/2024 5:45 AM INFORMATION TECHNOLOGY ACCOUNT MANAGER [facility] Is patient fasting? Yes 10/02/2024 5:45 AM INFORMATION TECHNOLOGY ACCOUNT MANAGER [facility] Blood Venous blood specimen / Unknown Port / Unknown 10/02/2024 4:57 AM INFORMATION TECHNOLOGY ACCOUNT MANAGER 10/02/2024 5:06 AM INFORMATION TECHNOLOGY ACCOUNT MANAGER Narrative [facility] - 10/02/2024 5:45 AM INFORMATION TECHNOLOGY ACCOUNT MANAGER Reference range established based on adult population. Beverley Galvez MD LAB BLOOD ORDERAB LES Final Result [facility] Unless otherwise noted, all lab tests performed by: Division of Pathology and Laboratory Medicine [address] [place] [id number] * Folate, RBC (10/01/2024 8:49 AM INFORMATION TECHNOLOGY ACCOUNT MANAGER) Pathologist [facility] Folate, RBC 757 >280 ng/mL RBC 10/02/2024 7:51 PM INFORMATION TECHNOLOGY ACCOUNT MANAGER [facility]) Blood Venous blood specimen / Unknown Port / Unknown 10/01/2024 8:49 AM INFORMATION TECHNOLOGY ACCOUNT MANAGER 10/01/2024 8:56 AM INFORMATION TECHNOLOGY ACCOUNT MANAGER Narrative [facility]) - 10/02/2024 7:51 PM INFORMATION TECHNOLOGY ACCOUNT MANAGER Performing Organization Information: [facility] [address] [place] [address] Marc Monteiro, PhD Beverley Galvez MD LAB BLOOD ORDERAB LES Final Result [facility] ([facility]) * (ABNORMAL) Cardiac Panel (10/01/2024 1:45 AM INFORMATION TECHNOLOGY ACCOUNT MANAGER) Only the most recent of2 resultswithin the time period is included. Pathologist [facility] Creatine Kinase 41 39 - 308 U/L 10/01/2024 3:08 AM [facility] CKMB 3.1 <=10.4 ng/mL 10/01/2024 3:08 AM [facility] Troponin T 275(C) <=19 ng/L 10/01/2024 3:08 AM [facility] Comment: < 19 ng/L Suggest retest at 3 to 6 hours later to rule out myocardial infarction >= 19 to <=52 ng/L Possible myocardial injury. Suggest retest at 3 hours. - a change of < 20 ng/L, retest at 6 hours - a change of >= 20 ng/L, suggestive of myocardial infarction > 52 ng/L Suggestive of myocardial infarction Critical value will be reported when cTnT is > 52 ng/L and only reported for the first in a series. Hemolyzed specimens with Hemolysis Index >100 (100 mg/dl or moderate hemolysis) may cause interferences and falsely low results. Blood Venous blood specimen / Unknown Port / Unknown 10/01/2024 1:45 AM INFORMATION TECHNOLOGY ACCOUNT MANAGER 10/01/2024 1:56 AM INFORMATION TECHNOLOGY ACCOUNT MANAGER us Tee Harris MD LAB BLOOD ORDERABLES Final Resu lt [facility] Unless otherwise noted, all lab tests performed by: Division of Pathology and Laboratory Medicine [address] [place] [phone] * (ABNORMAL) Transferrin with TIBC (10/01/2024 1:45 AM INFORMATION TECHNOLOGY ACCOUNT MANAGER) Transferrin 115(L) 200 - 360 mg/dL 10/01/2024 2:11 PM INFORMATION TECHNOLOGY ACCOUNT MANAGER [facility] Total Iron Binding Capacity 161(L) 250 - 450 mcg/dL 10/01/2024 2:11 PM INFORMATION TECHNOLOGY ACCOUNT MANAGER [facility] Blood Venous blood specimen / Unknown Port / Unknown 10/01/2024 1:45 AM INFORMATION TECHNOLOGY ACCOUNT MANAGER 10/01/2024 1:56 AM INFORMATION TECHNOLOGY ACCOUNT MANAGER us Beverley Galvez MD LAB BLOOD ORDERAB LES Final Result Performing Organization Address [facility]/ZIP Co de Phone Number [facility] Unless otherwise noted, all lab tests performed by: Division of Pathology and Laboratory Medicine [address] [place] [address] [id number] * Iron Level (10/01/2024 1:45 AM INFORMATION TECHNOLOGY ACCOUNT MANAGER) Iron Level 61 59 - 158 mcg/dL 10/01/2024 2:11 PM INFORMATION TECHNOLOGY ACCOUNT MANAGER [facility] Is patient fasting? 10/01/2024 2:11 PM INFORMATION TECHNOLOGY ACCOUNT MANAGER [facility] Blood Venous blood specimen / Unknown Port / Unknown 10/01/2024 1:45 AM INFORMATION TECHNOLOGY ACCOUNT MANAGER 10/01/2024 1:56 AM INFORMATION TECHNOLOGY ACCOUNT MANAGER us Beverley Galvez MD LAB BLOOD ORDERAB LES Final Result [facility] Unless otherwise noted, all lab tests performed by: Division of Pathology and Laboratory Medicine [address] [place] [address] * (ABNORMAL) Ferritin Level (10/01/2024 1:45 AM INFORMATION TECHNOLOGY ACCOUNT MANAGER) Ferritin Level 544(H) 30 - 400 ng/mL 10/01/2024 2:11 PM INFORMATION TECHNOLOGY ACCOUNT MANAGER [facility] Blood Venous blood specimen / Unknown Port / Unknown 10/01/2024 1:45 AM INFORMATION TECHNOLOGY ACCOUNT MANAGER 10/01/2024 1:56 AM INFORMATION TECHNOLOGY ACCOUNT MANAGER Narrative [facility] - 10/01/2024 2:11 PM INFORMATION TECHNOLOGY ACCOUNT MANAGER Reference range established for age 20 - 60 years us Beverley Galvez MD LAB BLOOD ORDERAB LES Final Result [facility] Unless otherwise noted, all lab tests performed by: Division of Pathology and Laboratory Medicine [facility] [place] [address] * NM Lung Perfusion (09/30/2024 5:20 PM INFORMATION TECHNOLOGY ACCOUNT MANAGER) Anatomical Region Laterality Modality Lung Single-Photon Em ission Computed Tomography (SPECT) 09/30/2024 5:24 PM INFORMATION TECHNOLOGY ACCOUNT MANAGER Impressions 09/30/2024 5:25 PM INFORMATION TECHNOLOGY ACCOUNT MANAGER No evidence of pulmonary thromboembolism. ACTIONABLE ITEMS/RECOMMENDATIONS*: None. *An Actionable Finding is a finding that may be unrelated to the original reason for imaging but potentially actionable, meaning further investigation may be necessary. The Actionable Findings Vigilance Unit (AFVU) assists medical providers with responding to additional radiologic findings that are unexpected and potentially actionable. Narrative 09/30/2024 5:25 PM INFORMATION TECHNOLOGY ACCOUNT MANAGER FULL RESULT: Examination: Perfusion Pulmonary Scintigraphy, 09/30/2024 5:20 PM Clinical History: 78-year-old male with cholangiocarcinoma Indication: Tachypnea, tachycardia, evaluation for pulmonary thromboembolism Comparison: Chest radiograph dated 09/29/2024 Technique: Following the intravenous administration of 5.3 mCi of technetium-99m MAA multiple planar images of the thorax were obtained in various projections. Findings: No suspicious peripheral, pleural-based wedge-shaped defects are identified to suggest pulmonary thromboembolism. Expected photopenia is identified along the cardiomediastinal silhouette. Procedure Note Cassia Agarwal MD - 09/30/2024 FULL RESULT: Examination: Perfusion Pulmonary Scintigraphy, 09/30/2024 5:20 PM Clinical History: 78-year-old male with cholangiocarcinoma Indication: Tachypnea, tachycardia, evaluation for pulmonarythromboembolism Comparison: Chest radiograph dated 09/29/2024 Technique: Following the intravenous administration of 5.3 mCi oftechnetium-99m MAA multiple planar images of the thorax were obtained invarious projections. Findings: No suspicious peripheral, pleural-based wedge-shaped defects areidentified to suggest pulmonary thromboembolism. Expected photopenia isidentified along the cardiomediastinal silhouette. IMPRESSION: No evidence of pulmonary thromboembolism. ACTIONABLE ITEMS/RECOMMENDATIONS*: None. *An Actionable Finding is a finding that may be unrelated to the originalreason for imaging but potentially actionable, meaning furtherinvestigation may be necessary. The Actionable Findings Vigilance Unit(AFVU) assists medical providers with responding to additional radiologicfindings that are unexpected and potentially actionable. Beverley Galvez MD G NM ORDERABLES Final Result * Endoscopy Fluoroscopy (09/30/2024 12:58 PM INFORMATION TECHNOLOGY ACCOUNT MANAGER) Narrative Systemgenerated, Documentation - 09/30/2024 12:58 PM INFORMATION TECHNOLOGY ACCOUNT MANAGER This procedure requires no interpretation from the radiologist. Jaziel Zapata MD [facility] NON DI ORDERABLES Final Resu lt * Echocardiogram Agitated Saline for Shunt Evaluation with Contrast (09/30/2024 9:23 AM INFORMATION TECHNOLOGY ACCOUNT MANAGER) 09/30/2024 8:08 AM INFORMATION TECHNOLOGY ACCOUNT MANAGER Narrative [facility] - 09/30/2024 10:21 AM INFORMATION TECHNOLOGY ACCOUNT MANAGER Echocardiographic Report Interpretation Summary A complete two-dimensional transthoracic echocardiogram was performed (2D, M- mode, Spectral and color Doppler). The study was technically adequate. Compared to prior study, there is no significant change. Normal left ventricular size and systolic function. LV ejection fraction (LVEF) is in the range of 62% (calculated by method of discs). The right ventricle is normal in size and function. Right ventricular systolic pressure is elevated at 35-40 mmHg. Injection of agitated saline showed no evidence of an interatrial shunt. There is no pericardial effusion. Left Ventricle: Normal left ventricular size and systolic function. LV ejection fraction (LVEF) is in the range of 62% (calculated by method of discs). Septal motion is consistent with post-operative state. I WMSI = 1.00 % Normal = 100 Segments Size X - Cannot 2 - 1-2 small Interpret 1 - Normal Hypokinetic 3 - Akinetic 4 - Dyskinetic3- 5 moderate 5 - Aneurysmal 6-14 large 15-16 diffuse 3D imaginD volumes were not performed in this study. Cardiac Mechanics/Speckle Tracking Imaging: Speckle tracking imaging was not performed in this study. (Foodini Study). Diastology: Grade I diastolic dysfunction. Right Ventricle: The right ventricle is normal in size and function. Atria: Atria are normal in size. Injection of agitated saline showed no evidence of an interatrial shunt. Mitral Valve: The mitral valve is grossly normal. There is no mitral valve stenosis. There is trace mitral regurgitation. Tricuspid Valve: The tricuspid valve is not well visualized, but is grossly normal. There is mild tricuspid regurgitation. Right ventricular systolic pressure is elevated at 35- 40 mmHg. Aortic Valve: The aortic valve is trileaflet. The aortic valve opens well. Pulmonic Valve: The pulmonic valve is not well seen, but is grossly normal. There is no pulmonic valvular stenosis. Great Vessels: The aortic root is normal size. The inferior vena cava demonstrates normal size and decreased respiratory variation. Pericardium/Pleural: An echo lucent space is noted consistent with prominent pericardial fat pad. There is no pericardial effusion. Preliminary Reviewer Preliminary Interpretation: Lisa Alexis. MMode/2D Measurements IVSd: 0.62 cm LVIDd: 4.7 cm LVIDs: 3.5 cm LVPWd: 0.71 cm FS: 25.0 % Ao root diam: 3.0 cm Ao root area: 7.1 cm2 LA dimension: 4.1 cm LVOT diam: 2.0 cm EDV(MOD-A4C): 110.9 ml ESV(MOD-A4C): 42.1 ml LVOT area: 3.1 cm2 EF(MOD-A4C): 62.1 % EDV(MOD-A2C): 95.8 ml ESV(MOD-A2C): 38.3 ml EDV(MOD-bp): 105.5 ml EF(MOD-A2C): 60.0 % ESV(MOD-bp): 40.3 ml EF(MOD-bp): 61.8 % LAV(MOD-A2C): 45.6 ml EDV (MOD-bp) Index: 57.6 ml/m2 LAV(MOD-A4C): 45.1 ml LAV(MOD-bp): 48.4 ml LAV(MOD-bp) Indexed: 26.4 ml/m2 ESV (MOD-bp) Index: 22.0 ml/m2 RWT: 0.30 cm TAPSE (>1.6): 1.3 cm Doppler Measurements MV E max marielos: 89.6 cm/sec MV V2 max: 84.4 cm/sec MV A max marielos: 66.8 cm/sec MV max P.9 mmHg MV E/A: 1.3 MV V2 mean: 48.9 cm/sec MV mean P.1 mmHg MV V2 VTI: 23.5 cm MVA(VTI): 2.4 cm2 Ao V2 max: 143.7 cm/sec LV V1 max P.7 mmHg Ao max P.3 mmHg LV V1 mean P.9 mmHg Ao V2 mean: 89.0 cm/sec LV V1 max: 96.3 cm/sec Ao mean P.7 mmHg LV V1 mean: 65.0 cm/sec Ao V2 VTI: 22.7 cm LV V1 VTI: 17.8 cm TOMAS(I,D): 2.5 cm2 TOMAS(V,D): 2.1 cm2 SV(LVOT): 55.7 ml PA V2 max: 73.6 cm/sec PA max P.2 mmHg PA V2 mean: 49.0 cm/sec PA mean P.1 mmHg PA V2 VTI: 13.8 cm Med Peak E' Marielos: 6.1 cm/sec Lat Peak E' Marielos: 6.4 cm/sec TR max marielos: 267.5 cm/sec RAP systole: 8.0 mmHg TR max P.6 mmHg RVSP(TR): 36.6 mmHg TOMAS Index (I,D): 1.3 TOMAS Index (V,D): 1.1 Dimensionless Index: 0.67 E/e' (avg): 14.3 E/e' (lat): 14.0 E/e' (sept): 14.6 Procedure Note Noel Huber MD - 09/30/2024 Echocardiographic Report Interpretation Summary A complete two-dimensional transthoracic echocardiogram was performed (2D,M- mode, Spectral and color Doppler). The study was technically adequate.Compared to prior study, there is no significant change. Normal left ventricular size and systolic function. LV ejection fraction (LVEF) is in the range of 62% (calculated by methodof discs). The right ventricle is normal in size and function. Right ventricular systolic pressure is elevated at 35-40 mmHg. Injection of agitated saline showed no evidence of an interatrial shunt. There is no pericardial effusion. Left Ventricle: Normal left ventricular size and systolic function. LV ejection fraction(LVEF) is in the range of 62% (calculated by method of discs). Septalmotion is consistent with post-operative state. I WMSI = 1.00 % Normal = 100 Segments Size X - Cannot 2 - 1-2small Interpret 1 - Normal Hypokinetic 3 - Akinetic 4 - Dyskinetic3-5moderate 5 - Aneurysmal6-14 large 15-16 diffuse 3D imaginD volumes were not performed in this study. Cardiac Mechanics/Speckle Tracking Imaging: Speckle tracking imaging was not performed in this study. (Foodini Study). Diastology: Grade I diastolic dysfunction. Right Ventricle: The right ventricle is normal in size and function. Atria: Atria are normal in size. Injection of agitated saline showed no evidenceof an interatrial shunt. Mitral Valve: The mitral valve is grossly normal. There is no mitral valve stenosis.There is trace mitral regurgitation. Tricuspid Valve: The tricuspid valve is not well visualized, but is grossly normal. Thereis mild tricuspid regurgitation. Right ventricular systolic pressure iselevated at 35-40 mmHg. Aortic Valve: The aortic valve is trileaflet. The aortic valve opens well. Pulmonic Valve: The pulmonic valve is not well seen, but is grossly normal. There is nopulmonic valvular stenosis. Great Vessels: The aortic root is normal size. The inferior vena cava demonstrates normalsize and decreased respiratory variation. Pericardium/Pleural: An echo lucent space is noted consistent with prominent pericardial fatpad. There is no pericardial effusion. Preliminary Reviewer Preliminary Interpretation: Lisa Alexis. MMode/2D Measurements IVSd: 0.62 cmLVIDd: 4.7 cm LVIDs: 3.5 cm LVPWd: 0.71 cm FS: 25.0 %Ao root diam: 3.0 cm Ao root area: 7.1 cm2 LA dimension: 4.1 cm LVOT diam: 2.0 cmEDV(MOD-A4C): 110.9 ml ESV(MOD-A4C): 42.1 ml LVOT area: 3.1 cm2EF(MOD-A4C): 62.1 % EDV(MOD-A2C): 95.8 ml ESV(MOD-A2C): 38.3 mlEDV(MOD-bp): 105.5 ml EF(MOD-A2C): 60.0 %ESV(MOD-bp): 40.3 ml EF(MOD-bp): 61.8 % LAV(MOD-A2C): 45.6 mlEDV (MOD-bp) Index: 57.6 ml/m2 LAV(MOD-A4C): 45.1 ml LAV(MOD-bp): 48.4 ml LAV(MOD-bp) Indexed: 26.4 ml/m2 ESV (MOD-bp) Index: 22.0 ml/m2RWT: 0.30 cm TAPSE (>1.6): 1.3 cm Doppler Measurements MV E max marielos: 89.6 cm/secMV V2 max: 84.4 cm/sec MV A max marielos: 66.8 cm/secMV max P.9 mmHg MV E/A: 1.3MV V2 mean: 48.9 cm/sec MV mean P.1 mmHg MV V2 VTI: 23.5 cm MVA(VTI): 2.4 cm2 Ao V2 max: 143.7 cm/secLV V1 max P.7 mmHg Ao max P.3 mmHgLV V1 mean P.9 mmHg Ao V2 mean: 89.0 cm/secLV V1 max: 96.3 cm/sec Ao mean P.7 mmHgLV V1 mean: 65.0 cm/sec Ao V2 VTI: 22.7 cmLV V1 VTI: 17.8 cm TOMAS(I,D): 2.5 cm2 TOMAS(V,D): 2.1 cm2 SV(LVOT): 55.7 mlPA V2 max: 73.6 cm/sec PA max P.2 mmHg PA V2 mean: 49.0 cm/sec PA mean P.1 mmHg PA V2 VTI: 13.8 cm Med Peak E' Marielos: 6.1 cm/secLat Peak E' Marielos: 6.4 cm/sec TR max marielos: 267.5 cm/secRAP systole: 8.0 mmHg TR max P.6 mmHg RVSP(TR): 36.6 mmHg TOMAS Index (I,D): 1.3AVA Index (V,D): 1.1 Dimensionless Index: 0.67E/e' (avg): 14.3 E/e' (lat): 14.0E/e' (sept): 14.6 us Beverley Galvez MD CV ECHO ORDERABLE S Final Result [facility] * (ABNORMAL) Troponin T (In-House) (09/30/2024 9:02 AM INFORMATION TECHNOLOGY ACCOUNT MANAGER) Only the most recent of2 resultswithin the time period is included. Troponin T 280(C) <=19 ng/L 09/30/2024 9:29 AM INFORMATION TECHNOLOGY ACCOUNT MANAGER [facility] Blood Venous blood specimen / Unknown Port / Unknown 09/30/2024 9:02 AM INFORMATION TECHNOLOGY ACCOUNT MANAGER 09/30/2024 9:06 AM INFORMATION TECHNOLOGY ACCOUNT MANAGER Narrative [facility] - 09/30/2024 9:29 AM INFORMATION TECHNOLOGY ACCOUNT MANAGER Reference range established for age 21 - [...] may cause interferences and falsely low results. us Chuck Arredondo MD LAB BLOOD ORDERABLES Final Resul t Performing Organization Address City/[facility]/ZIP Co de Phone Number [facility] Unless otherwise noted, all lab tests performed by: Division of Pathology and Laboratory Medicine [address] [place] [id number] * (ABNORMAL) Lactic Acid, Venous (09/30/2024 8:26 AM INFORMATION TECHNOLOGY ACCOUNT MANAGER) Only the most recent of5 resultswithin the time period is included. Venous Lactate 2.7(H) 0.5 - 1.6 mmol/L 09/30/2024 8:34 AM INFORMATION TECHNOLOGY ACCOUNT MANAGER [facility] Oxygen FLOW Rate/ FiO2 09/30/2024 8:34 AM [facility] O2 Therapy 09/30/2024 8:34 AM [facility] Blood Peripheral blood specimen / Unknown Port / Unknown 09/30/2024 8:26 AM INFORMATION TECHNOLOGY ACCOUNT MANAGER 09/30/2024 8:31 AM INFORMATION TECHNOLOGY ACCOUNT MANAGER Sridevi Braun APRN LAB BLOOD ORDERABLES Final R esult Performing Organization Address City/[facility] Co de Phone Number [facility] Unless otherwise noted, all lab tests performed by: Division of Pathology and Laboratory Medicine [address] [place] [id number] * (ABNORMAL) VBG (09/30/2024 8:26 AM INFORMATION TECHNOLOGY ACCOUNT MANAGER) Only the most recent of5 resultswithin the time period is included. pH Venous 7.39 7.32 - 7.43 09/30/2024 8:34 AM INFORMATION TECHNOLOGY ACCOUNT MANAGER [facility] P CO2 Venous 32.0(L) 41.0 - 51.0 mmHg 09/30/2024 8:34 AM [facility] P O2 Venous 35 mmHg 09/30/2024 8:34 AM [facility] Bicarbonate Venous 19(L) 21 - 28 mmol/L 09/30/2024 8:34 AM [facility] Base Excess Venous -5(L) -2 - 3 mmol/L 09/30/2024 8:34 AM INFORMATION TECHNOLOGY ACCOUNT MANAGER [facility] Oxygen Saturation Venous 59 % 09/30/2024 8:34 AM INFORMATION TECHNOLOGY ACCOUNT MANAGER [facility] Oxygen FLOW Rate/ FiO2 09/30/2024 8:34 AM INFORMATION TECHNOLOGY ACCOUNT MANAGER [facility] O2 Therapy 09/30/2024 8:34 AM INFORMATION TECHNOLOGY ACCOUNT MANAGER [facility] Blood Peripheral blood specimen / Unknown Port / Unknown 09/30/2024 8:26 AM INFORMATION TECHNOLOGY ACCOUNT MANAGER 09/30/2024 8:31 AM INFORMATION TECHNOLOGY ACCOUNT MANAGER us Sridevinoemi Braun APRN LAB BLOOD ORDERABLES Final R esult [facility] Unless otherwise noted, all lab tests performed by: Division of Pathology and Laboratory Medicine [address] [place] [id number] * (ABNORMAL) Basic Metabolic Panel- Calcium Ionized (09/30/2024 6:15 AM INFORMATION TECHNOLOGY ACCOUNT MANAGER) Only the most recent of3 resultswithin the time period is included. eGFR 33(L) >=60 mL/min/1. 73 sq. m 09/30/2024 7:14 AM INFORMATION TECHNOLOGY ACCOUNT MANAGER [facility] Comment: The eGFRcr is calculated with [...] G2 fulfill criteria for CKD. Sodium Level 137 136 - 145 mmol/L 09/30/2024 7:14 AM [facility] Potassium Level 3.5 3.4 - 4.5 mmol/L 09/30/2024 7:14 AM [facility] Chloride 104 98 - 107 mmol/L 09/30/2024 7:14 AM [facility] CO2 18(L) 22 - 29 mmol/L 09/30/2024 7:14 AM [facility] Anion Gap 15(H) 4 - 14 mmol/L 09/30/2024 7:14 AM [facility] Creatinine 2.01(H) 0.67 - 1.17 mg/dL 09/30/2024 7:14 AM [facility] BUN 29(H) 6 - 23 mg/dL 09/30/2024 7:14 AM [facility] Glucose Level 150(H) 70 - 99 mg/dL 09/30/2024 7:14 AM [facility] Comment: Effective 06/12/16, the glucose reference intervals have been updated based on [place] [employer] guidelines (Standards of Medical Care in Diabetes 2016. Diabetes Care 2016; 39: S13-S22). Fasting blood glucose: Normal: 70-99 mg/dL Impaired fasting glucose (increased risk for diabetes or pre-diabetes): 100-125 mg/dL Diabetes mellitus: >/=126 mg/dL Random blood glucose: Normal: 70-199 mg/dL Note: Random glucose >100 mg/dL is associated with increased risk for diabetes. Blood Peripheral blood specimen / Unknown Port / Unknown 09/30/2024 6:15 AM INFORMATION TECHNOLOGY ACCOUNT MANAGER 09/30/2024 6:30 AM [facility] us Sridevi Braun APRN LAB BLOOD ORDERABLES Final R esult [facility] Unless otherwise noted, all lab tests performed by: Division of Pathology and Laboratory Medicine [address] [place] [id number] * (ABNORMAL) Cytokine Panel 3 (09/30/2024 6:15 AM [facility]) Interferon Gamma Quantity 10.1 <=14.0 pg/mL 10/04/2024 8:56 AM INFORMATION TECHNOLOGY ACCOUNT MANAGER [facility] Interleukin-6 Quantity 292.7(H) <=5.0 pg/mL 10/04/2024 8:56 AM INFORMATION TECHNOLOGY ACCOUNT MANAGER [facility] Tumor necrosis factor-alpha Quantity 58.7(H) <=23.8 pg/mL 10/04/2024 8:56 AM INFORMATION TECHNOLOGY ACCOUNT MANAGER [facility] HLA Comment The presence of interfering substances were not determined. 10/04/2024 8:56 AM INFORMATION TECHNOLOGY ACCOUNT MANAGER [facility] Cytokine Testing Note Test results are used to understand the pathophysiology of Immune, infectious, or inflammatory disorders. Given significant variation between laboratories and/or lots with all reagents, current methodology used in this test may not be suitable for repeated determinations over a long-term study or comparison between different laboratories. 10/04/2024 8:56 AM INFORMATION TECHNOLOGY ACCOUNT MANAGER [facility] Cytokine Testing Methodology Multiplex Luminex Assay 10/04/2024 8:56 AM INFORMATION TECHNOLOGY ACCOUNT MANAGER [facility] Cytokine Testing Signature These results were reviewed and interpreted by Efraín Armenta MD, MS, F([facility])[[id number]] and Simone Barakat M.D.[[id number]], Ph.D. 10/04/2024 8:56 AM INFORMATION TECHNOLOGY ACCOUNT MANAGER [facility] Cytokine Testing Disclaimer Tests were developed and characteristics determined by [facility] HLA laboratory. The validation study has been reviewed, and the performance of the method is considered acceptable for patient testing. The tests have not cleared by U.S. Food and Drug Administration. The laboratory is certified under CLIA-88 as qualified to perform high- complexity clincal laboratory testing. PRESTON: 54-3-RW-25-1 CAP: [id number] 10/04/2024 8:56 AM INFORMATION TECHNOLOGY ACCOUNT MANAGER [facility] Blood Peripheral blood specimen / Unknown Port / Unknown 09/30/2024 6:15 AM INFORMATION TECHNOLOGY ACCOUNT MANAGER 09/30/2024 6:30 AM INFORMATION TECHNOLOGY ACCOUNT MANAGER us Beverley Galvez MD LAB BLOOD ORDERAB LES Final Result [facility] LAB [facility] [address] [place] [address] * HIV 1/2 Antigen/Antibody, Fourth Gen W/RFL (09/30/2024 6:15 AM INFORMATION TECHNOLOGY ACCOUNT MANAGER) HIV Ag/Ab, 4TH Gen NON-REACT PAUL NON-REACT PAUL 10/01/2024 4:01 PM INFORMATION TECHNOLOGY ACCOUNT MANAGER [facility] RILEY) Comment: HIV-1 antigen and HIV-1/HIV-2 antibodies were [...] purpose. For additional information please refer to http://education.QuVIS/faq/VEH907 (This link is being provided for informational/ educational purposes only.) The performance of this assay has not been clinically validated in patients less than 2 years old. Blood Peripheral blood specimen / Unknown Port / Unknown 09/30/2024 6:15 AM INFORMATION TECHNOLOGY ACCOUNT MANAGER 09/30/2024 6:30 AM INFORMATION TECHNOLOGY ACCOUNT MANAGER Adin ULYSSES RILEY) - 10/01/2024 4:01 PM INFORMATION TECHNOLOGY ACCOUNT MANAGER Performing Organization Information: [facility] [address] [place] [phone] Safia Bell Beverley Galvez MD LAB BLOOD ORDERAB LES Final Result ULYSSES RILEY) * Hepatitis C Virus Antibody (09/30/2024 6:15 AM INFORMATION TECHNOLOGY ACCOUNT MANAGER) Pathologist [facility] HCVAb. Non Reactive Non Reactive 09/30/2024 10:28 AM INFORMATION TECHNOLOGY ACCOUNT MANAGER [facility] Blood Peripheral blood specimen / Unknown Port / Unknown 09/30/2024 6:15 AM INFORMATION TECHNOLOGY ACCOUNT MANAGER 09/30/2024 6:30 AM INFORMATION TECHNOLOGY ACCOUNT MANAGER Adin [facility] - 09/30/2024 10:28 AM INFORMATION TECHNOLOGY ACCOUNT MANAGER Antibody detection in the immunocompromised and immunosuppressed population may be delayed or absent entirely. Therefore serial testing, correlation with other clinical findings, and supplemental testing (if available) should be taken into consideration when interpreting the results. Beverley Galvez MD LAB BLOOD ORDERAB LES Final Result [facility] Unless otherwise noted, all lab tests performed by: Division of Pathology and Laboratory Medicine [address] [place] [address] * Hepatitis B Total Ig Core Ab (SCREENING) (anti-HBc total Ig; HBcAb total Ig) (09/30/2024 6:15 AM INFORMATION TECHNOLOGY ACCOUNT MANAGER) [facility] HBcAb. Non Reactive Non Reactive 09/30/2024 10:26 AM INFORMATION TECHNOLOGY ACCOUNT MANAGER [facility] Blood Peripheral blood specimen / Unknown Port / Unknown 09/30/2024 6:15 AM INFORMATION TECHNOLOGY ACCOUNT MANAGER 09/30/2024 6:30 AM INFORMATION TECHNOLOGY ACCOUNT MANAGER Beverley Galvez MD LAB BLOOD ORDERAB LES Final Result Performing Organization Address [facility] Co de Phone Number [facility] Unless otherwise noted, all lab tests performed by: Division of Pathology and Laboratory Medicine [address] [place] [phone] * T-spot Tuberculosis (09/30/2024 6:15 AM INFORMATION TECHNOLOGY ACCOUNT MANAGER) [facility] Tspot TB Negative SeeBelow 10/02/2024 1:05 PM INFORMATION TECHNOLOGY ACCOUNT MANAGER [facility] ([employer]) Comment: Normal Value: Negative A negative test result does not exclude the possibility of exposure to or infection with Mycobacterium tuberculosis (M. tuberculosis). Patients with recent exposure to TB infected individuals exhibiting a negative T-SPOT.TB result should be considered for retesting within 6 weeks or if other relevant clinical symptoms indicate. Results from T-SPOT.TB testing must be used in conjunction with each individual's epidemiological history, current medical status, and results of other diagnostic evaluations. The T-SPOT.TB test is qualitative and results are reported as positive, borderline or negative, given that the test controls perform as expected. In line with the Centers for Disease Control and Prevention's 2010 recommendation to report quantitative measurements alongside the qualitative result, the laboratory provides spot counts for informational purposes only. The T-SPOT.TB test should not be interpreted as a quantitative test. Tspot TB Panel A 0 10/02/20 1:05 PM INFORMATION TECHNOLOGY ACCOUNT MANAGER [facility] ([employer]) Tspot TB Panel B 0 10/02/20 24 1:05 PM INFORMATION TECHNOLOGY ACCOUNT MANAGER [facility] ([employer]) Tspot TB NIL Cont Passed 024 1:05 PM INFORMATION TECHNOLOGY ACCOUNT MANAGER [facility] ([email or web address]) Tspot TB Pos Cont Passed 024 1:05 PM INFORMATION TECHNOLOGY ACCOUNT MANAGER [facility] ([facility]) Blood Peripheral blood specimen / Unknown Port / Unknown 09/30/2024 6:15 AM INFORMATION TECHNOLOGY ACCOUNT MANAGER 09/30/2024 6:30 AM INFORMATION TECHNOLOGY ACCOUNT MANAGER Narrative [facility] ([facility]) - 10/02/2024 1:05 PM INFORMATION TECHNOLOGY ACCOUNT MANAGER Performing Organization Information: [facility], [facility], [address] [place] [phone] Jos Corrales us Beverley Galvez MD LAB BLOOD ORDERAB LES Final Result ULYSSES RILEY) * (ABNORMAL) Thyroid Peroxidase Ab (09/30/2024 6:15 AM INFORMATION TECHNOLOGY ACCOUNT MANAGER) Pathologist [facility] Thyroid Peroxidase AB 98.5(H) <=8.9 IU/mL 09/30/2024 9:10 AM INFORMATION TECHNOLOGY ACCOUNT MANAGER [facility] Blood Peripheral blood specimen / Unknown Port / Unknown 09/30/2024 6:15 AM INFORMATION TECHNOLOGY ACCOUNT MANAGER 09/30/2024 6:30 AM INFORMATION TECHNOLOGY ACCOUNT MANAGER Narrative [facility] - 09/30/2024 9:10 AM INFORMATION TECHNOLOGY ACCOUNT MANAGER When Thyroid Peroxidase Antibodies results exceed 7000 IU/mL, some Thyroid Peroxidase Antibodies samples may not dilute linearly due to varying antigen specificity, affinity, and avidity of capture and conjugate antibodies in their epitope reactions. us Beverley Galvez MD LAB BLOOD ORDERAB LES Final Result [facility] Unless otherwise noted, all lab tests performed by: Division of Pathology and Laboratory Medicine [address] [place] [address] [place] [address] * Thyrotropin Receptor Ab (09/30/2024 6:15 AM INFORMATION TECHNOLOGY ACCOUNT MANAGER) Pathologist [facility] Thyro Recpt Ab-Logan <1.10 0.00 - 1.75 IU/L 10/01/2024 1:31 PM INFORMATION TECHNOLOGY ACCOUNT MANAGER [facility] Comment: ADDITIONAL INFORMATION At a decision limit of 1.75 IU/L, this assay has 97% sensitivity and 99% specificity for detection of Graves' disease. In healthy individuals and in patients with thyroid disease without diagnosis of Graves' disease, the upper limit of anti-TSHR values are 1.22 IU/L and 1.58 IU/L, respectively (97.5th percentiles). Test Performed by: [place] [address] Rug Measurer: Mau Thakkar Ph.D.; CLIA# [id number] Blood Peripheral blood specimen / Unknown Port / Unknown 09/30/2024 6:15 AM INFORMATION TECHNOLOGY ACCOUNT MANAGER 09/30/2024 6:30 AM INFORMATION TECHNOLOGY ACCOUNT MANAGER Beverley Galvez MD LAB BLOOD ORDERAB LES Final Result Performing Organization Address City/[facility]/ZIP Co de Phone Number [facility] * HTLV I/II Ab (09/30/2024 6:15 AM INFORMATION TECHNOLOGY ACCOUNT MANAGER) [facility] HTLV I/II Ab Screen-Logan Negative Negative 10/04/2024 1:37 PM INFORMATION TECHNOLOGY ACCOUNT MANAGER [facility] Comment: Test Performed by: [place] [address] Rug Measurer: Mau Thakkar Ph.D.; CLIA# [id number] Blood Peripheral blood specimen / Unknown Port / Unknown 09/30/2024 6:15 AM INFORMATION TECHNOLOGY ACCOUNT MANAGER 09/30/2024 6:30 AM INFORMATION TECHNOLOGY ACCOUNT MANAGER Beverley Galvez MD LAB BLOOD ORDERAB LES Final Result [facility] * Hepatitis Be Ag (09/30/2024 6:15 AM INFORMATION TECHNOLOGY ACCOUNT MANAGER) [facility] HBe Ag-Logan Negative Negative 10/01/2024 12:42 PM INFORMATION TECHNOLOGY ACCOUNT MANAGER MEYERS RYNE SERRANO Comment: Consumption of high-dose biotin supplement within 12 hours of blood collection for this test can cause false-negative results. Test Performed by: [facility] [address] [place] [address] Rug Measurer: Mau Thakkar Ph.D.; CLIA# [id number] Blood Peripheral blood specimen / Unknown Port / Unknown 09/30/2024 6:15 AM INFORMATION TECHNOLOGY ACCOUNT MANAGER 09/30/2024 6:30 AM INFORMATION TECHNOLOGY ACCOUNT MANAGER us Beverley Galvez MD LAB BLOOD ORDERAB LES Final Result [facility] * Hepatitis B Surface Antibody (09/30/2024 6:15 AM INFORMATION TECHNOLOGY ACCOUNT MANAGER) Pathologist [facility] HBsAb Non Reactive 09/30/2024 10:27 AM INFORMATION TECHNOLOGY ACCOUNT MANAGER [facility] Blood Peripheral blood specimen / Unknown Port / Unknown 09/30/2024 6:15 AM INFORMATION TECHNOLOGY ACCOUNT MANAGER 09/30/2024 6:30 AM INFORMATION TECHNOLOGY ACCOUNT MANAGER Narrative [facility] - 09/30/2024 10:27 AM INFORMATION TECHNOLOGY ACCOUNT MANAGER Vaccinated individual: Reactive Unvaccinated individual: Non-Reactive us Beverley Galvez MD LAB BLOOD ORDERAB LES Final Result Performing Organization Address City/[facility]/ZIP Co de Phone Number [facility] Unless otherwise noted, all lab tests performed by: Division of Pathology and Laboratory Medicine [address] [place] [address] * Hepatitis B Surface Ag (09/30/2024 6:15 AM INFORMATION TECHNOLOGY ACCOUNT MANAGER) Pathologist [facility] HBsAg. Non Reactive Non Reactive 09/30/2024 10:26 AM INFORMATION TECHNOLOGY ACCOUNT MANAGER [facility] Blood Peripheral blood specimen / Unknown Port / Unknown 09/30/2024 6:15 AM INFORMATION TECHNOLOGY ACCOUNT MANAGER 09/30/2024 6:30 AM INFORMATION TECHNOLOGY ACCOUNT MANAGER Beverley Galvez MD LAB BLOOD ORDERAB LES Final Result [facility] Unless otherwise noted, all lab tests performed by: Division of Pathology and Laboratory Medicine [address] [place] [id number] * MRSA Screening Culture (09/30/2024 12:38 AM INFORMATION TECHNOLOGY ACCOUNT MANAGER) [facility] MRSA Screening Culture No Methicillin-Resist ant Staphylococcus aureus isolated. 10/02/2024 10:59 AM INFORMATION TECHNOLOGY ACCOUNT MANAGER [facility] Swab (Nares, Right) Non-blood Collection / Unknown 09/30/2024 12:38 AM INFORMATION TECHNOLOGY ACCOUNT MANAGER 09/30/2024 12:48 AM INFORMATION TECHNOLOGY ACCOUNT MANAGER Narrative [facility] - 10/02/2024 10:59 AM INFORMATION TECHNOLOGY ACCOUNT MANAGER Testing is performed using PBP2a antigen detection and cefoxitin screen on isolated S. aureus colonies. This methodology may not detect uncommon mechanisms of methicillin resistance in S. aureus. [id number]-[id number] Hartley PA-C MICROBIOLOGY - [facility] L ORDERABLES Final Result [facility] Unless otherwise noted, all lab tests performed by: Division of Pathology and Laboratory Medicine [address] [place] [phone] * (ABNORMAL) Hepatic Function Panel (09/30/2024 12:34 AM INFORMATION TECHNOLOGY ACCOUNT MANAGER) [facility] Bilirubin Total 3.1(H) 0.0 - 1.2 mg/dL 09/30/2024 1:21 AM INFORMATION TECHNOLOGY ACCOUNT MANAGER [facility] Comment:Indocyanine Green (I CG) may cause falsely elevated bilirubin results. Total and direct bilirubin must not be measured from samples containing indocyanine green. False elevation of total bilirubin can be seen in patients with IgG concentrations above 28 g/L. Bilirubin Direct 2.6(H) 0.0 - 0.3 mg/dL 09/30/2024 1:21 AM INFORMATION TECHNOLOGY ACCOUNT MANAGER [facility] Comment:Indocyanine Green (I CG) may cause falsely elevated bilirubin results. Total and direct bilirubin must not be measured from samples containing indocyanine green. Bilirubin Indirect 0.5 0.0 - 0.9 mg/dL 09/30/2024 1:21 AM INFORMATION TECHNOLOGY ACCOUNT MANAGER [facility] Tot Protein 6.7 6.4 - 8.3 gm/dL 09/30/2024 1:21 AM INFORMATION TECHNOLOGY ACCOUNT MANAGER [facility] Alkaline Phosphatase 176(H) 40 - 129 U/L 09/30/2024 1:21 AM [facility] Albumin Level 3.2(L) 3.5 - 5.2 gm/dL 09/30/2024 1:21 AM [facility] AST 129(H) <=40 U/L 09/30/2024 1:21 AM [facility] ALT 136(H) <=41 U/L 09/30/2024 1:21 AM [facility] Blood Peripheral blood specimen / Unknown Port / Unknown 09/30/2024 12:34 AM INFORMATION TECHNOLOGY ACCOUNT MANAGER 09/30/2024 12:48 AM INFORMATION TECHNOLOGY ACCOUNT MANAGER [facility] APRN LAB BLOOD ORDERABLES Final R esult Performing Organization Address City/[facility] de Phone Number [facility] Unless otherwise noted, all lab tests performed by: Division of Pathology and Laboratory Medicine [address] [place] [id number] * (ABNORMAL) Calcium Ionized, Venous (09/30/2024 12:34 AM INFORMATION TECHNOLOGY ACCOUNT MANAGER) Only the most recent of2 resultswithin the time period is included. Venous Ionized Calcium 1.13(L) 1.15 - 1.29 mmol/L 09/30/2024 12:51 AM [facility] Oxygen FLOW Rate/ FiO2 09/30/2024 12:51 AM [facility] O2 Therapy 09/30/2024 12:51 AM [facility] Blood Peripheral blood specimen / Unknown Port / Unknown 09/30/2024 12:34 AM INFORMATION TECHNOLOGY ACCOUNT MANAGER 09/30/2024 12:48 AM INFORMATION TECHNOLOGY ACCOUNT MANAGER Sridevi Braun APRN LAB BLOOD ORDERABLES Final R esult [facility] Unless otherwise noted, all lab tests performed by: Division of Pathology and Laboratory Medicine [address] [place] [phone] * (ABNORMAL) Sed Rate (09/30/2024 12:34 AM INFORMATION TECHNOLOGY ACCOUNT MANAGER) Pathologist [facility] Sedimentation Rate 90(H) <=20 mm/hr 2023 6:41 AM INFORMATION TECHNOLOGY ACCOUNT MANAGER [facility] Blood Peripheral blood specimen / Unknown Port / Unknown 09/30/2024 12:34 AM INFORMATION TECHNOLOGY ACCOUNT MANAGER 09/30/2024 12:48 AM INFORMATION TECHNOLOGY ACCOUNT MANAGER Beverley Galvez MD LAB BLOOD ORDERAB LES Final Result Performing Organization Address City/[facility] Co de Phone Number [facility] Unless otherwise noted, all lab tests performed by: Division of Pathology and Laboratory Medicine [address] [place] [id number] * CRP (09/30/2024 12:34 AM INFORMATION TECHNOLOGY ACCOUNT MANAGER) [facility] CRP-HS >285.00 mg/L 09/30/2024 6:52 AM INFORMATION TECHNOLOGY ACCOUNT MANAGER [facility] Blood Peripheral blood specimen / Unknown Port / Unknown 09/30/2024 12:34 AM INFORMATION TECHNOLOGY ACCOUNT MANAGER 09/30/2024 12:48 AM INFORMATION TECHNOLOGY ACCOUNT MANAGER Narrative [facility] - 09/30/2024 6:52 AM INFORMATION TECHNOLOGY ACCOUNT MANAGER Adult Reference ranges for HS CRP assay are as follows: Reference ranges when used to assess cardiac risk: <1.00 mg/L Low cardiovascular risk 1.00-3.00 mg/L Average cardiovascular risk >3.00 mg/L High cardiovascular risk Reference ranges when used to assess inflammatory responses: Less than or equal to 10.00 mg/L. Beverley Galvez MD LAB BLOOD ORDERAB LES Final Result Performing Organization Address City/[facility]/ZIP Co de Phone Number [facility] Unless otherwise noted, all lab tests performed by: Division of Pathology and Laboratory Medicine [address] [place] [phone] * (ABNORMAL) T3 (09/30/2024 12:34 AM INFORMATION TECHNOLOGY ACCOUNT MANAGER) Pathologist [facility] Triiodothyronine <20(L) 80 - 200 ng/dL 09/30/2024 6:37 AM INFORMATION TECHNOLOGY ACCOUNT MANAGER [facility] Blood Peripheral blood specimen / Unknown Port / Unknown 09/30/2024 12:34 AM INFORMATION TECHNOLOGY ACCOUNT MANAGER 09/30/2024 12:48 AM INFORMATION TECHNOLOGY ACCOUNT MANAGER Beverley Galvez MD LAB BLOOD ORDERAB LES Final Result [facility] Unless otherwise noted, all lab tests performed by: Division of Pathology and Laboratory Medicine [address] [place] [phone] * C. auris Screening PCR (09/29/2024 7:58 PM INFORMATION TECHNOLOGY ACCOUNT MANAGER) Specimen Source Axilla+Groi n 10/04/2024 10:37 AM INFORMATION TECHNOLOGY ACCOUNT MANAGER [facility] C auris PCR, Result Negative Not Applicable 10/04/2024 10:37 AM INFORMATION TECHNOLOGY ACCOUNT MANAGER [facility] Comment: ADDITIONAL INFORMATION This test was developed and its performance characteristics determined by [facility] in a manner consistent with CLIA requirements. This test has not been cleared or approved by the U.S. Food and Drug Administration. Test Performed by: [facility] [place] [address] Rug Measurer: Mau Thakkar Ph.D.; CLIA# [id number] Swab (Axilla + Groin) Non-blood Collection / Unknown 09/29/2024 7:58 PM INFORMATION TECHNOLOGY ACCOUNT MANAGER 09/29/2024 8:12 PM INFORMATION TECHNOLOGY ACCOUNT MANAGER us Beverley Galvez MD MICROBIOLOGY - [facility] ORDERABLES Final Result [facility] * VRE Culture (09/29/2024 7:58 PM INFORMATION TECHNOLOGY ACCOUNT MANAGER) VRE Culture No Vancomycin-Resi stant Enterococci isolated. 10/01/2024 8:11 AM INFORMATION TECHNOLOGY ACCOUNT MANAGER [facility] Swab Rectum structure / Unknown Non-blood Collection / Unknown 09/29/2024 7:58 PM INFORMATION TECHNOLOGY ACCOUNT MANAGER 09/29/2024 8:12 PM INFORMATION TECHNOLOGY ACCOUNT MANAGER Sridevi Braun LOADER OPERATOR/GROUND LEADER MICROBIOLOGY - GENERAL ORDER EMELYN Final Result [facility] Unless otherwise noted, all lab tests performed by: Division of Pathology and Laboratory Medicine [address] [place] [phone] * (ABNORMAL) Troponin I (Sendout) (09/29/2024 6:35 PM INFORMATION TECHNOLOGY ACCOUNT MANAGER) Troponin-I 2,065(H) <=54 pg/mL 09/30/2024 7:23 AM INFORMATION TECHNOLOGY ACCOUNT MANAGER [facility] Blood Peripheral blood specimen / Unknown Port / Unknown 09/29/2024 6:35 PM INFORMATION TECHNOLOGY ACCOUNT MANAGER 09/29/2024 6:39 PM INFORMATION TECHNOLOGY ACCOUNT MANAGER Narrative [facility] - 09/30/2024 7:23 AM INFORMATION TECHNOLOGY ACCOUNT MANAGER Troponin I Reference Ranges: Male: <=54 pg/mL Female: <= 34 pg/mL Beverley Galvez MD LAB BLOOD ORDERAB LES Final Result Performing Organization Address [facility]/ZIP Co de Phone Number [facility] [address] [place] [address], [place] * Potassium Urine (09/29/2024 5:58 PM INFORMATION TECHNOLOGY ACCOUNT MANAGER) [facility] Urine Potassium 23 mmol/L 8:10 PM INFORMATION TECHNOLOGY ACCOUNT MANAGER [facility] Comment:Normal range not tomas ilable for collections less than 24 hours in duration. Urine Voided urine specimen / Unknown Non-blood Collection / Unknown 09/29/2024 5:58 PM INFORMATION TECHNOLOGY ACCOUNT MANAGER 09/29/2024 7:19 PM INFORMATION TECHNOLOGY ACCOUNT MANAGER Pilar Harry LOADER OPERATOR/GROUND LEADER URINE ORDERABLES Final Res ult [facility] Unless otherwise noted, all lab tests performed by: Division of Pathology and Laboratory Medicine [address] [place] [id number] * Chloride Urine (09/29/2024 5:58 PM INFORMATION TECHNOLOGY ACCOUNT MANAGER) Urine Chloride <20 mmol/L 09/29/2024 8:10 PM INFORMATION TECHNOLOGY ACCOUNT MANAGER [facility] Comment:Normal range not tomas ilable for collections less than 24 hours in duration. Urine Voided urine specimen / Unknown Non-blood Collection / Unknown 09/29/2024 5:58 PM INFORMATION TECHNOLOGY ACCOUNT MANAGER 09/29/2024 7:19 PM INFORMATION TECHNOLOGY ACCOUNT MANAGER us Pilar N Aladdin LOADER OPERATOR/GROUND LEADER URINE ORDERABLES Final Res ult [facility] Unless otherwise noted, all lab tests performed by: Division of Pathology and Laboratory Medicine [address] [place] [id number] * US Liver (09/29/2024 4:12 PM INFORMATION TECHNOLOGY ACCOUNT MANAGER) Anatomical Region Laterality Modality Abdomen Ultrasound 09/29/2024 4:43 PM INFORMATION TECHNOLOGY ACCOUNT MANAGER Impressions 09/29/2024 4:49 PM INFORMATION TECHNOLOGY ACCOUNT MANAGER 1. Partially visualized common bile duct and left hepatic duct biliary stent. Mild dilatation of the intrahepatic bile ducts. 2. Heterogenous echogenicity of the liver parenchyma without discrete focal liver masses. 3. Right renal a few subcentimeter nonobstructing stones. ACTIONABLE ITEMS/RECOMMENDATIONS*: None. *An Actionable Finding is a finding that may be unrelated to the original reason for imaging but potentially actionable, meaning further investigation may be necessary. The Actionable Findings Vigilance Unit (AFVU) assists medical providers with responding to additional radiologic findings that are unexpected and potentially actionable. Narrative 09/29/2024 4:49 PM INFORMATION TECHNOLOGY ACCOUNT MANAGER Examination: US LIVER on 09/29/2024 4:12 PM. Clinical History: Leukocytosis Fever Hyperbilirubinemia Hvvrw-jf-wpeccqr renal failure Iszec-zd-wbmqzvp renal failure Cholangiocarcinoma Hypoglycemia, not otherwise specified. Indication: Increase Liver Function Tests/Obstruction. Comparison: CT 08/23/2024 Technique: The abdominal right upper quadrant was evaluated with grayscale and color Doppler ultrasound. Findings: Liver: The liver measures 15 cm. Heterogenous echogenicity of the liver parenchyma. No discrete focal liver masses. The main portal vein is patent with normal direction of flow. Biliary ducts: Minimal dilatation of the intrahepatic bile ducts. The central biliary radicles measure 6 mm. Partially visualized common bile duct and left hepatic ducts biliary stent. Gallbladder: Absent. Pancreas: The visualized proximal pancreas is unremarkable. The distal pancreas obscured by adjacent bowel. Right kidney: The right kidney measures 12.3 cm. A few small subcentimeter nonobstructing renal stones measuring up to 4 mm. No renal masses. No right collecting system dilatation. No ascites. Procedure Note Leroy Ware MD - 09/29/2024 Examination: US LIVER on 09/29/2024 4:12 PM. Clinical History: Leukocytosis Fever Hyperbilirubinemia Txxol-vz-rpdqikk renal failure Xsesc-ca-ikqicgm renal failure Cholangiocarcinoma Hypoglycemia, not otherwise specified. Indication: Increase Liver Function Tests/Obstruction. Comparison: CT 08/23/2024 Technique: The abdominal right upper quadrant was evaluated withgrayscale and color Doppler ultrasound. Findings: Liver: The liver measures 15 cm. Heterogenous echogenicity of the liverparenchyma. No discrete focal liver masses. The main portal vein is patentwith normal direction of flow. Biliary ducts: Minimal dilatation of the intrahepatic bile ducts. Thecentral biliary radicles measure 6 mm. Partially visualized common bileduct and left hepatic ducts biliary stent. Gallbladder: Absent. Pancreas: The visualized proximal pancreas is unremarkable. The distalpancreas obscured by adjacent bowel. Right kidney: The right kidney measures 12.3 cm. A few small subcentimeternonobstructing renal stones measuring up to 4 mm. No renal masses. Noright collecting system dilatation. No ascites. IMPRESSION: 1. Partially visualized common bile duct and left hepatic duct biliarystent. Mild dilatation of the intrahepatic bile ducts. 2. Heterogenous echogenicity of the liver parenchyma without discretefocal liver masses. 3. Right renal a few subcentimeter nonobstructing stones. ACTIONABLE ITEMS/RECOMMENDATIONS*: None. *An Actionable Finding is a finding that may be unrelated to the originalreason for imaging but potentially actionable, meaning furtherinvestigation may be necessary. The Actionable Findings Vigilance Unit(AFVU) assists medical providers with responding to additional radiologicfindings that are unexpected and potentially actionable. us Beverley Galvez MD IMG US ORDERABLES Final Result * (ABNORMAL) Lipid Panel (09/29/2024 2:59 PM INFORMATION TECHNOLOGY ACCOUNT MANAGER) Cholesterol Total 96 <200 mg/dL 09/29/2024 3:35 PM INFORMATION TECHNOLOGY ACCOUNT MANAGER [facility] Comment: ATP III Classification of Total Cholesterol - Primary Target of Therapy (in mg/dL): <200 Desirable 200-239 Borderline high >=240 High Triglyceride 379(H) <150 mg/dL 09/29/2024 3:35 PM INFORMATION TECHNOLOGY ACCOUNT MANAGER [facility] Comment: ATP III Classification of Serum Triglycerides Primary Target of Therapy (in mg/dL): <150 Normal 150-199 Borderline high 200-499 High >=500 Very high Non-fasting triglycerides >200 mg/dL may be followed up with a fasting Lipid Panel. Calculated LDL-C may be falsely decreased when non-fasting triglycerides >200 mg/dL. HDL Cholesterol 16(L) >=40 mg/dL 09/29/2024 3:35 PM INFORMATION TECHNOLOGY ACCOUNT MANAGER [facility] LDL Cholesterol 4 <=100 mg/dL 09/29/2024 3:35 PM INFORMATION TECHNOLOGY ACCOUNT MANAGER [facility] Comment: ATP III Classification of LDL Cholesterol Primary Target of Therapy (in mg/dL): <100 Optimal 100-129 Near optimal/above optimal 130-159 Borderline high 160-189 High >=190 Very high Very Low Density Lipoprotein 76 mg/dL 09/29/2024 3:35 PM INFORMATION TECHNOLOGY ACCOUNT MANAGER [facility] Is patient fasting? 09/29 3:35 PM INFORMATION TECHNOLOGY ACCOUNT MANAGER [facility] Blood Peripheral blood specimen / Unknown Port / Unknown 09/29/2024 2:59 PM INFORMATION TECHNOLOGY ACCOUNT MANAGER 09/29/2024 3:03 PM INFORMATION TECHNOLOGY ACCOUNT MANAGER Beverley Galvez MD LAB BLOOD ORDERAB LES Final Result [facility] Unless otherwise noted, all lab tests performed by: Division of Pathology and Laboratory Medicine [address] [place] [id number] * XR Chest 1 View Portable (09/29/2024 12:07 PM INFORMATION TECHNOLOGY ACCOUNT MANAGER) Anatomical Region Laterality Modality Chest Digital Radiogra phy 09/29/2024 1:00 PM INFORMATION TECHNOLOGY ACCOUNT MANAGER Impressions 09/29/2024 1:01 PM INFORMATION TECHNOLOGY ACCOUNT MANAGER Mild atelectasis in the lower lungs. Otherwise no acute cardiopulmonary process. ACTIONABLE ITEMS/RECOMMENDATIONS*: None. *An Actionable Finding is a finding that may be unrelated to the original reason for imaging but potentially actionable, meaning further investigation may be necessary. The Actionable Findings Vigilance Unit (AFVU) assists medical providers with responding to additional radiologic findings that are unexpected and potentially actionable. Narrative 09/29/2024 1:01 PM INFORMATION TECHNOLOGY ACCOUNT MANAGER FULL RESULT: Examination: XR CHEST 1 VW PORTABLE on 09/29/2024 12:07 PM. Clinical History: Leukocytosis Fever Hyperbilirubinemia Ssayk-kw-tegfzle renal failure Cholangiocarcinoma Hypoglycemia, not otherwise specified Indication: Chest pain, COVID-19 Not Suspected Comparison: 09/28/2024 at 1908 hours Technique: Frontal radiograph of the chest Findings: Support Apparatus: The left chest port is stable. Lungs/Pleura/Mediastinum: The cardiomediastinal silhouette is stable. Mild atelectasis is present in the lower lungs. There is no airspace disease or edema. The pleural spaces are clear. The visualized osseous structures and upper abdomen are stable. Procedure Note Eliecer March MD - 09/29/2024 FULL RESULT: Examination: XR CHEST 1 VW PORTABLE on 09/29/2024 12:07 PM. Clinical History: Leukocytosis Fever Hyperbilirubinemia Ghevw-oi-bnukvtu renal failure Cholangiocarcinoma Hypoglycemia, not otherwise specified Indication: Chest pain, COVID-19 Not Suspected Comparison: 09/28/2024 at 1908 hours Technique: Frontal radiograph of the chest Findings: Support Apparatus: The left chest port is stable. Lungs/Pleura/Mediastinum: The cardiomediastinal silhouette is stable. Mildatelectasis is present in the lower lungs. There is no airspace disease oredema. The pleural spaces are clear. The visualized osseous structures and upper abdomen are stable. IMPRESSION: Mild atelectasis in the lower lungs. Otherwise no acute cardiopulmonaryprocess. ACTIONABLE ITEMS/RECOMMENDATIONS*: None. *An Actionable Finding is a finding that may be unrelated to the originalreason for imaging but potentially actionable, meaning furtherinvestigation may be necessary. The Actionable Findings Vigilance Unit(AFVU) assists medical providers with responding to additional radiologicfindings that are unexpected and potentially actionable. Beverley Galvez MD IMG DIAGNOSTIC IM AGING ORDERABLES Final Result * (ABNORMAL) NT-Pro BNP (In-House) (09/29/2024 11:58 AM INFORMATION TECHNOLOGY ACCOUNT MANAGER) [facility] NT-ProBNP 15,854(H) <=450 pg/mL 09/29/2024 4:34 PM INFORMATION TECHNOLOGY ACCOUNT MANAGER [facility] Blood Venous blood specimen / Unknown Port / Unknown 09/29/2024 11:58 AM INFORMATION TECHNOLOGY ACCOUNT MANAGER 09/29/2024 12:04 PM INFORMATION TECHNOLOGY ACCOUNT MANAGER Beverley Galvez MD LAB BLOOD ORDERAB LES Final Result [facility] Unless otherwise noted, all lab tests performed by: Division of Pathology and Laboratory Medicine [address] [place] [id number] * (ABNORMAL) Urinalysis Microscopic Exam (09/29/2024 5:14 AM INFORMATION TECHNOLOGY ACCOUNT MANAGER) Only the most recent of2 resultswithin the time period is included. [facility] Urine Mucous Not Seen Not Seen, Trace /HPF 09/29/2024 5:40 AM INFORMATION TECHNOLOGY ACCOUNT MANAGER [facility] Urine Bacteria 1+(A) Not Seen /HPF 09/29/2024 5:40 AM INFORMATION TECHNOLOGY ACCOUNT MANAGER [facility] Urine Squamous Epithelial Cells OCC Not Seen, OCC, Rare /HPF 09/29/2024 5:40 AM [facility] Urine Amorphous Crystal OCC(A) Not Seen /HPF 09/29/2024 5:40 AM [facility] Urine WBC 8(H) <=2 /HPF 09/29/2024 5:40 AM [facility] Urine RBC 7(H) <=2 /HPF 09/29/2024 5:40 AM [facility] Urine Hyaline Casts 22(H) <=2 /LPF 09/29/2024 5:40 AM INFORMATION TECHNOLOGY ACCOUNT MANAGER [facility] Urine Voided urine specimen / Unknown Non-blood Collection / Unknown 09/29/2024 5:14 AM INFORMATION TECHNOLOGY ACCOUNT MANAGER 09/29/2024 5:17 AM INFORMATION TECHNOLOGY ACCOUNT MANAGER Brian aMncilla MD LAB BLOOD ORDERABLES Final R esult [facility] Unless otherwise noted, all lab tests performed by: Division of Pathology and Laboratory Medicine [address] [place] [phone] * (ABNORMAL) Fractionated Bilirubin (09/29/2024 2:49 AM INFORMATION TECHNOLOGY ACCOUNT MANAGER) Bilirubin Direct 3.0(H) 0.0 - 0.3 mg/dL 09/29/2024 3:50 AM [facility] Comment:Indocyanine Green (I CG) may cause falsely elevated bilirubin results. Total and direct bilirubin must not be measured from samples containing indocyanine green. Bilirubin Indirect 0.4 0.0 - 0.9 mg/dL 09/29/2024 3:50 AM INFORMATION TECHNOLOGY ACCOUNT MANAGER [facility] Bilirubin Total 3.4(H) 0.0 - 1.2 mg/dL 09/29/2024 3:50 AM INFORMATION TECHNOLOGY ACCOUNT MANAGER [facility] Comment: Indocyanine Green (ICG) may cause [...] with IgG concentrations above 28 g/L. Blood Peripheral blood specimen / Unknown Port / Unknown 09/29/2024 2:49 AM INFORMATION TECHNOLOGY ACCOUNT MANAGER 09/29/2024 3:16 AM [facility] Brian Mancilla MD LAB BLOOD ORDERABLES Final R esult [facility] Unless otherwise noted, all lab tests performed by: Division of Pathology and Laboratory Medicine [address] [place] [id number] * LDH (09/29/2024 2:49 AM INFORMATION TECHNOLOGY ACCOUNT MANAGER) Only the most recent of2 resultswithin the time period is included. LDH 220 135 - 225 U/L 09/29/2024 3:50 AM INFORMATION TECHNOLOGY ACCOUNT MANAGER [facility] Blood Peripheral blood specimen / Unknown Port / Unknown 09/29/2024 2:49 AM INFORMATION TECHNOLOGY ACCOUNT MANAGER 09/29/2024 3:16 AM INFORMATION TECHNOLOGY ACCOUNT MANAGER Narrative [facility] - 09/29/2024 3:50 AM INFORMATION TECHNOLOGY ACCOUNT MANAGER Results greater than 1651 U/L may not be reliable due to matrix effect with extended dilution as it exceeds the concrete grinder operator's recommended limit. Caution should be exercised when interpreting such values and done in conjunction with clinical context. Brian Mancilla MD LAB BLOOD ORDERABLES Final R esult [facility] Unless otherwise noted, all lab tests performed by: Division of Pathology and Laboratory Medicine [address] [place] [id number] * OSI Chest (09/28/2024 7:15 AM INFORMATION TECHNOLOGY ACCOUNT MANAGER) Narrative Systemgenerated, Documentation - 09/29/2024 7:15 AM INFORMATION TECHNOLOGY ACCOUNT MANAGER Study acquired at another institution. For comparison only. No [facility] originated interpretation requested or available. Dashawn PAGE OUTSIDE IMAGE ORDERABLES Fi nal Result * OSI CT Brain (09/28/2024 7:15 AM INFORMATION TECHNOLOGY ACCOUNT MANAGER) Narrative Systemgenerated, Documentation - 09/29/2024 7:15 AM INFORMATION TECHNOLOGY ACCOUNT MANAGER Study acquired at another institution. For comparison only. No [facility] originated interpretation requested or available. us Dashawn JO OUTSIDE IMAGE ORDERABLES Fi nal Result * OSI CT ABDOMEN AND PELVIS (09/28/2024 7:14 AM INFORMATION TECHNOLOGY ACCOUNT MANAGER) Narrative Systemgenerated, Documentation - 09/29/2024 7:14 AM INFORMATION TECHNOLOGY ACCOUNT MANAGER Study acquired at another institution. For comparison only. No MD Navarrete originated interpretation requested or available. Dashawn Sutherland MD IMG OUTSIDE IMAGE ORDERABLES Fi nal Result after 08/09/2024 Insurance [employer] MEDICARE ADVANTAGE [employer] MED[employer] ADVANTAGE Advance Directives * Full Code (Latest Code Status on File) Date Activated Date Inactivated Comments 07/16/2025 9:07 AM Update based o n Advanced Directive Documentation * Full Code Date Activated Date Inactivated Comments 07/13/2025 12:18 PM 07/16/2025 9:07 AM Update base d on Advanced Directive Documentation * Full Code Date Activated Date Inactivated Comments 04/01/2025 12:25 PM 07/13/2025 12:18 PM Update bas ed on Advanced Directive Documentation * Full Code Date Activated Date Inactivated Comments 09/29/2024 5:09 AM 10/10/2024 4:09 PM * Full Code Date Activated Date Inactivated Comments 07/28/2024 12:06 AM 07/30/2024 4:39 PM Care Teams Mag[employer] Web Developer Relationship Specialty Start Date End Date Al Carrasco MD PCP - External Follow Up A General Surgery 12/26/23 Dashawn Sutherland MD [address] [place] [address] [phone] [email or web address] PCP - General Gastrointestinal Medical Oncology 01/05/24 Elisha Louise MD [address] [place] [address] Dr Nabeel MOHAMUD [place], [place] [id number] PCP - External Primary Care Provider Internal Medicine 05/09/25 César Morales MD [address] [place] [address] [id number] PCP - External Follow Up B Internal Medicine 05/26/25 Elisha Louise MD [address] [place] [address] Dr [place], [place] [id number] PCP - External Follow Up C Internal Medicine 07/19/25 Al Quick IV, MD [address] [place] [address] [phone] [email or web address] Consulting Physician Urology 04/09/24 Rashida Rico MD [address] [place] [address] [phone] [email or web address] Consulting Physician Radiation Oncology 08/11/24 Eugene Martinez MD [address] [place] [address] [id number] [email or web address] Consulting Physician Endocrinology 09/02/24 Liborio Adam MD [address] [place] [address] [id number] [email or web address] Consulting Physician Supportive Care 11/03/24
[2025-08-09 12:05] LABS: Absolute Lymphocytes (CBC) 0.4 K/uL (0.7-4.9); Hematocrit 28.7 % (39.6-49.0); Hemoglobin 9.8 g/dL (13.6-17.9); MCH 34.1 pg (27.0-35.0); MCHC 34.2 g/dL (32.0-36.0); MCV 99.9 fL (80-100); MPV 8.8 fL (7.6-11.3); Nucleated RBC Absolute Count 0.0 (0-0); Nucleated Red Blood Cells % 0.0 % (0-0); RBC Red Blood Cell Count 2.87 M/uL (4.33-5.43); White Blood Count 7.00 thou/uL (4.3-10.9)
[2025-08-09 12:14] LABS: PT Prothrombin Time 14.3 SECONDS (10-13.0); Protime INR 1.27
[2025-08-09] MEDS ORDERED: NA CHLORIDE 0.9% 2,000 ML ONE (12:19)
[2025-08-09] MEDS ORDERED: CEFEPIME 1 GM/VIAL ONE (12:19)
[2025-08-09 12:23] LABS: Anion Gap 10.0 mEq/L (5.0-15.0); BUN Blood Urea Nitrogen 23.0 mg/dL (7-18); Glucose Level 295.0 mg/dL (74-106); Potassium 4.0 mEq/L (3.5-5.1); Troponin High Sensitivity 36.7 pg/mL (<58.9)
--- NOTE | 2025-08-09 13:03 | RAD REPORT ---
EXAM: CT Head Brain Wo Cont HISTORY: CONFUSED COMPARISON: 09/28/2024 TECHNIQUE: Multiple contiguous axial images were obtained for a CT of the brain without contrast. Sag ittal and coronal reformats were performed. One or more of the following dose reduction techniques were used: Automated exposure control, adjus tment of the mA and kV according to patient size, and iterative reconstruction. Unless otherwise specified, incidental findings do not require dedicated imaging follow-up. FINDINGS: No evidence of hydrocephalus, intracranial hemorrhage, or extra-axial fluid collection. Patchy predominantly periventricular and basal ganglia region hypodensities, stable The calvarium is intact. Patchy opacification of the left frontal and ethmoid sinuses. IMPRESSION: No evidence of acute intracranial abnormality. Stable patchy hypodensities in the periventricular whi te matter and basal ganglia regions, suggestive of sequelae of chronic small vessel ischemic changes. If there is concern for remote ischemia, additional evaluation by MRI with provide improved assessment.
--- NOTE | 2025-08-09 13:34 | RAD REPORT ---
EXAM: CT CHEST, ABDOMEN AND PELVIS WITHOUT CONTRAST CLINICAL INDICATION: Cough;Fever;Pain TECHNIQUE: CT chest, abdomen and pelvis was performed without contrast, as per department protocol. A xial, sagittal and coronal reconstructions were obtained. One or more of the following dose reduction techniques were used: Automated exposure control, adjustment of the mA and/or kV according to patient size, and/or iterative reconstruction. Unless otherwise specified, incidental findings do not require dedicated imaging follow-up. Examination is limited by the lack of intravenous contrast material. COMPARISON: 11/28/2023 FINDINGS: LUNGS: Mild bibasilar lung opacities suggesting mild interstitial pulmonary edema. PLEURA: No pleural effusion. No pneumothorax. MEDIASTINUM AND LYMPH NODES: No mediastinal mass or fluid collection. Normal size mediastinal, hilar, and axillary lymph nodes. Left-sided portacatheter is in place. OSSEOUS STRUCTURES AND CHEST WALL: Intact. Sternotomy wires. LIVER: Normal in size and contour. No focal lesion or biliary dilatation. Biliary stent is noted in t he common duct with pneumobilia in the left lobe liver. PANCREAS: No mass, ductal dilation, or beka-pancreatic fluid. SPLEEN: Normal size. No focal lesion. ADRENALS: Normal; no mass. KIDNEYS: Small calyceal calculi are present in both kidneys without hydronephrosis. 2 cm exophytic an terior left renal cyst. URINARY BLADDER: Normal contour. GASTROINTESTINAL TRACT: No bowel obstruction, free air, significant free fluid or abscess. Moderate inflammation is seen surrounding the majority of the colon where there is significant stool retention. Nonspecific inflammatory changes in the superior omentum adjacent to the stomach also pres ent. APPENDIX: Normal appendix. LYMPH NODES: No lymphadenopathy. MUSCULOSKELETAL: No acute or suspicious osseous abnormality. OTHER: Mild aortoiliac atherosclerosis. IMPRESSION: Prominent stool retention throughout the colon with mild pericolonic inflammatory changes which could indicate stercoral colitis. There is moderate nonspecific inflamed fat anterior superior omentum, indeterminate etiology. Small bilateral renal calculi without hydronephrosis.
--- NOTE | 2025-08-09 14:26 | RAD REPORT ---
EXAM: Chest Single View HISTORY: 79 years Male CHEST PAIN COMPARISON: 04/29/2025 FINDINGS: LUNGS/PLEURA: Prominence of the basilar interstitial markings favored chronic. CARDIAC/MEDIASTINUM: Mild cardiomegaly UPPER ABDOMEN: No significant abnormality. BONES: Sternotomy. No acute abnormality. LINES/TUBES/OTHER: Left IJ approach Port-A-Cath with tip overlying the right atrium. IMPRESSION: No significant change in aeration from prior. Prominent basilar interstitial markings likely reflecti ng primary fibrotic changes.
--- NOTE | 2025-08-09 15:07 | ER ---
Nurse's Notes [facility] Name: Nnamdi Flores III Age: 79 yrs Sex: Male : 1945 Arrival Date: 08/09/2025 Time: 10:53 Bed 14 Private MD: Diagnosis: Weakness;Altered mental status, unspecified;Constipation-pancolitis BILE DUCT CANCER;Anemia, unspecified Presentation: 08/09 11:17 Chief complaint: Patient states: Sent by Dr. Tello for further eval and treatment of ss confusion and fatigue that began this morning.. Denies pain/ fever. UA at PCP's office was negative for infection. Coronavirus screen: Client denies travel out of the [place] in the last 14 days. Ebola Screen: Patient denies exposure to infectious person. Patient denies travel to an Ebola-affected area in the 21 days before illness onset. Initial Sepsis Screen: Does the patient meet any 2 criteria? No. Patient's initial sepsis screen is negative. Does the patient have a suspected source of infection? No. Patient's initial sepsis screen is negative. Risk Assessment: Do you want to hurt yourself or someone else? Patient reports no desire to harm self or others. Onset of symptoms was August 09, 2025. 11:17 Method Of Arrival: Wheelchair ss 11:17 Acuity: DAMION 3 ss Historical: - Allergies: 11:19 Morphine; ss 11:19 Sulfa (Sulfonamide Antibiotics); ss - PMHx: 11:19 BILE DUCT CANCER (Hypothyroidism); BPH; coronary atherosclerosis; Hypertensive ss disorder; Hypothyroidism; - Infectious Disease History:: Denies. - Social history:: Smoking status: Patient denies any tobacco usage or history of. - Family history:: not pertinent. Vital Signs: 11:17 BP 128 / 59; Pulse 70; Resp 16; Temp 98.5(O); Pulse Ox 98% on R/A; Weight 71.21 kg; ss Height 5 ft. 5 in. ; Pain 0/10; 11:17 Body Mass Index 26.13 (71.21 kg, 165.1 cm) ss 11:17 Pain Scale: Adult ss ED Course: 10:55 Patient arrived in ED. mr 11:07 Andi Navarrete MD is Attending Physician. [facility] 11:19 Triage completed. ss 11:19 Arm band placed on right wrist. ss 11:31 Jaziel Luna, RN is Primary Nurse. bp 11:53 EKG done, by semiconductor lab technician. reviewed by Andi Navarrete MD. ts3 11:53 Initial lab(s) drawn, by md, sent to lab. EKG done, by ED staff, reviewed by Andi Navarrete MD. Inserted saline lock: 22 gauge in right forearm, using aseptic technique. Blood collected. Flushed with 10 mL NS. 12:01 CT Head Brain wo Cont In Process Unspecified. EDMS 12:36 XRAY Chest (1 view) In Process Unspecified. EDMS 12:40 CT Chest Abdomen Pelvis W/O Contrast In Process Unspecified. EDMS 15:05 Roberto Tello MD is Hospitalizing Provider. ayala Administered Medications: 12:45 Drug: NS 0.9% IV (30 ml/kg) 30 ml/kg IV at bolus once; Sepsis Protocol; to be given as bp a bolus over 90 minutes Route: IV; Rate: bolus; Site: right antecubital; 17:20 Follow up: IV Status: Completed infusion bp 12:45 Drug: Cefepime IVPB 1 grams IVPB at 200 ml/hr once over 30 mins; (mix in NS 100 mL) bp Route: IVPB; Rate: 200 ml/hr; Infused Over: 30 mins; Site: right antecubital; 17:20 Follow up: IV Status: Completed infusion bp 15:37 Drug: metroNIDAZOLE IVPB 500 mg 100 ml IVPB at 200 ml/hr once over 30 mins Volume: 100 bp ml; Route: IVPB; Rate: 200 ml/hr; Infused Over: 30 mins; Site: right antecubital; 17:20 Follow up: IV Status: Completed infusion bp 15:37 Drug: Lactulose PO 30 grams 45 ml PO once Volume: 45 ml; Route: PO; bp 17:20 Follow up: Response: No adverse reaction bp 15:37 Drug: Dulcolax KS Suppository 10 mg KS once Route: KS; bp 17:20 Follow up: Response: No adverse reaction bp Outcome: 15:06 Decision to Hospitalize by Provider. ayala 17:13 Patient left the ED. Signatures: Dispatcher [employer] EDID Andi Navarrete MD MD cha Rivera, Mary, Reg Reg Inessa Baez, RN RN ss Jaziel Luna, RN RN bp Claudia Carmen ts3
--- NOTE | 2025-08-09 15:07 | EDPHYS ---
Physician Documentation [facility] Name: Nnamdi Flores III Age: 79 yrs Sex: Male : 1945 Arrival Date: 08/09/2025 Time: 10:53 Bed 14 Private MD: ED Physician Andi Navarrete HPI: 08/09 14:58 This 79 yrs old Male presents to ER via Wheelchair with complaints of Fatigue. ayala 14:58 fever this am, ams , no fever at dr dai office, sent to er , at baseline. The patient ayala presents with confusion, this am, at [place] in the er. Possible causes: CVA or TIA, low blood sugar, seizure, sepsis. Associated signs and symptoms: Pertinent positives:. Current symptoms: In the emergency department the patient's symptoms have improved, markedly, is less confused. Patient's baseline: Neuro: alert and fully oriented. Severity of symptoms: At their worst the symptoms were mild in the emergency department the symptoms have improved moderately. The patient has experienced similar episodes in the past, a few times. Historical: - Allergies: 11:19 Morphine; ss 11:19 Sulfa (Sulfonamide Antibiotics); ss - PMHx: 11:19 BILE DUCT CANCER (Hypothyroidism); BPH; coronary atherosclerosis; Hypertensive ss disorder; Hypothyroidism; - Infectious Disease History:: Denies. - Social history:: Smoking status: Patient denies any tobacco usage or history of. - Family history:: not pertinent. ROS: 14:58 Constitutional: Negative for fever, chills, and weight loss, Eyes: Negative for injury, ayala pain, redness, and discharge, ENT: Negative for injury, pain, and discharge, Neck: Negative for injury, pain, and swelling, Cardiovascular: Negative for chest pain, palpitations, and edema, Respiratory: Negative for shortness of breath, cough, wheezing, and pleuritic chest pain, Abdomen/GI: Negative for abdominal pain, nausea, vomiting, diarrhea, and constipation, Back: Negative for injury and pain, : Negative for injury, bleeding, discharge, and swelling, MS/Extremity: Negative for injury and deformity, Skin: Negative for injury, rash, and discoloration, Psych: Negative for depression, anxiety, suicide ideation, homicidal ideation, and hallucinations, Allergy/Immunology: Negative for hives, rash, and allergies, Endocrine: Negative for neck swelling, polydipsia, polyuria, polyphagia, and marked weight changes, Hematologic/Lymphatic: Negative for swollen nodes, abnormal bleeding, and unusual bruising, 14:58 Neuro: Positive for altered mental status, weakness, Exam: 14:58 Constitutional: This is a well developed, well nourished patient who is awake, alert, ayala and in no acute distress. Head/Face: Normocephalic, atraumatic. Eyes: Pupils equal round and reactive to light, extra-ocular motions intact. Lids and lashes normal. Conjunctiva and sclera are non-icteric and not injected. Cornea within normal limits. Periorbital areas with no swelling, redness, or edema. ENT: Nares patent. No nasal discharge, no septal abnormalities noted. Tympanic membranes are normal and external auditory canals are clear. Oropharynx with no redness, swelling, or masses, exudates, or evidence of obstruction, uvula midline. Mucous membranes moist. Neck: Trachea midline, no thyromegaly or masses palpated, and no cervical lymphadenopathy. Supple, full range of motion without nuchal rigidity, or vertebral point tenderness. No Meningismus. Chest/axilla: Normal chest wall appearance and motion. Nontender with no deformity. No lesions are appreciated. Cardiovascular: Regular rate and rhythm with a normal S1 and S2. No gallops, murmurs, or rubs. Normal PMI, no JVD. No pulse deficits. Respiratory: Lungs have equal breath sounds bilaterally, clear to auscultation and percussion. No rales, rhonchi or wheezes noted. No increased work of breathing, no retractions or nasal flaring. Abdomen/GI: Soft, non-tender, with normal bowel sounds. No distension or tympany. No guarding or rebound. No evidence of tenderness throughout. Back: No spinal tenderness. No costovertebral tenderness. Full range of motion. Male : Normal genitalia with no discharge or lesions. Skin: Warm, dry with normal turgor. Normal color with no rashes, no lesions, and no evidence of cellulitis. MS/ Extremity: Pulses equal, no cyanosis. Neurovascular intact. Full, normal range of motion., bilateral aka Neuro: Awake and alert, GCS 15, oriented to person, place, time, and situation. Cranial nerves II-XII grossly intact. Motor strength 5/5 in all extremities. Sensory grossly intact. Cerebellar exam normal. Normal gait. Psych: Awake, alert, with orientation to person, place and time. Behavior, mood, and affect are within normal limits. 14:58 ECG was reviewed by the Attending Physician. 14:58 Abdomen/GI: Inspection: abdomen appears normal, Bowel sounds: normal, Palpation: abdomen is soft and non-tender, Liver: no appreciated palpable abnormalities, Hernia: not appreciated, Vital Signs: 11:17 BP 128 / 59; Pulse 70; Resp 16; Temp 98.5(O); Pulse Ox 98% on R/A; Weight 71.21 kg; ss Height 5 ft. 5 in. ; Pain 0/10; 11:17 Body Mass Index 26.13 (71.21 kg, 165.1 cm) ss 11:17 Pain Scale: Adult ss MDM: 11:07 Medical Screening Exam initiated ayala 15:02 Differential Diagnosis altered mental status, sepsis, flu. Differential Diagnosis: CVA, ayala electrolyte abnormality, hypoglycemia, intracranial bleed, meningitis, overdose, pneumonia, seizure, sepsis, TIA, UTI, volume depletion. Data reviewed: vital signs, nurses notes, lab test result(s), EKG, radiologic studies, CT scan, plain films. Consideration of Admission/Observation Escalation of care including admission/observation considered. I considered the following discharge prescriptions or medication management in the emergency department Medications were administered in the Emergency Department. See MAR. Independent interpretation of the following test(s) in the Emergency Department EKG: See my EKG interpretation above. Test considered but Not performed: MRI: no mrcp. Historians other than the Patient: Spouse/Significant Other: well informed. Care significantly affected by the following chronic conditions: Hypertension, Obesity, Cancer, bph, cad. 08/09 11:35 Order name: Basic Metabolic Panel; Complete Time: 14:11 bp 08/09 11:35 Order name: CBC with Diff; Complete Time: 14:11 bp 08/09 11:35 Order name: PT-INR; Complete Time: 14:11 bp 08/09 11:35 Order name: Troponin HS; Complete Time: 14:11 08/09 11:50 Order name: Lactate w/ 2H reflex if indic.; Complete Time: 14:11 [facility] 08/09 11:50 Order name: Blood Culture Adult (2) ayala 08/09 11:50 Order name: Lipase; Complete Time: 14:11 ayala 08/09 15:17 Order name: Basic Metabolic Panel EDMS 08/09 15:17 Order name: Basic Metabolic Panel EDMS 08/09 15:17 Order name: CBC with Automated Diff EDMS 08/09 15:17 Order name: CBC with Automated Diff EDMS 08/09 11:35 Order name: XRAY Chest (1 view); Complete Time: 14:55 bp 08/09 11:35 Order name: CT Head Brain wo Cont; Complete Time: 14:11 bp 08/09 11:50 Order name: CT Chest Abdomen Pelvis W/O Contrast; Complete Time: 14:11 ayala 08/09 11:35 Order name: EKG; Complete Time: 11:36 bp 08/09 11:35 Order name: Cardiac monitoring; Complete Time: 11:52 bp 08/09 11:35 Order name: EKG - Nurse/Tech; Complete Time: 11:52 bp 08/09 11:35 Order name: IV Saline Lock; Complete Time: 11:52 bp 08/09 11:35 Order name: Labs collected and sent; Complete Time: 11:52 bp 08/09 11:35 Order name: O2 Per Protocol; Complete Time: 11:52 bp 08/09 11:35 Order name: O2 Sat Monitoring; Complete Time: 11:52 bp EC:58 Rate is 71 beats/min. Rhythm is regular. QRS [place] is Normal. DE interval is normal. QRS ayala interval is normal. QT interval is normal. No Q waves. T waves are Normal. No ST changes noted. Clinical impression: NSR w/ Non-specific ST/T Changes and No evidence of ischemia. Interpreted by me. Reviewed by me. Administered Medications: 12:45 Drug: NS 0.9% IV (30 ml/kg) 30 ml/kg IV at bolus once; Sepsis Protocol; to be given as bp a bolus over 90 minutes Route: IV; Rate: bolus; Site: right antecubital; 17:20 Follow up: IV Status: Completed infusion bp 12:45 Drug: Cefepime IVPB 1 grams IVPB at 200 ml/hr once over 30 mins; (mix in NS 100 mL) bp Route: IVPB; Rate: 200 ml/hr; Infused Over: 30 mins; Site: right antecubital; 17:20 Follow up: IV Status: Completed infusion bp 15:37 Drug: metroNIDAZOLE IVPB 500 mg 100 ml IVPB at 200 ml/hr once over 30 mins Volume: 100 bp ml; Route: IVPB; Rate: 200 ml/hr; Infused Over: 30 mins; Site: right antecubital; 17:20 Follow up: IV Status: Completed infusion bp 15:37 Drug: Lactulose PO 30 grams 45 ml PO once Volume: 45 ml; Route: PO; bp 17:20 Follow up: Response: No adverse reaction bp 15:37 Drug: Dulcolax DE Suppository 10 mg DE once Route: DE; bp 17:20 Follow up: Response: No adverse reaction bp Disposition Summary: 08/09/25 15:06 Hospitalization Ordered Notes: Hospitalization Status: Observation ayala Provider: Roberto Tlelo cha Location: Telemetry/MedSurg (observation) ayala Condition: Fair ayala Problem: new ayala Symptoms: have improved ayala Bed/Room Type: Standard ayala Room Assignment: 413(08/09/25 15:14) bd Diagnosis - Weakness ayala - Altered mental status, unspecified ayala - Constipation - pancolitis BILE DUCT CANCER(08/09/25 15:06) ayala - Anemia, unspecified ayala Forms: - Medication Reconciliation Form ayala - SBAR form ayala - Leadership Thank You Letter ayala Signatures: Dispatcher [employer] EDMS Noreen Lugo Corey, MD MD cha Blanchard, Shelby, RN RN ss Jaziel Luna, RN RN bp Corrections: (The following items were deleted from the chart) 11:51 11:51 Chest Abdomen Pelvis Wo Con+CT.RAD.BRZ ordered. EDMS EDMS 15:06 15:06 Constipation - pancolitis ayala [facility] 15:14 15:06 ayala bd
[2025-08-09] MEDS ORDERED: ONDANSETRON 4 MG/2 ML VIAL IV PRN (15:15)
[2025-08-09] MEDS ORDERED: BISACODYL 10 MG RECTAL SUPP ONE (15:31)
[2025-08-09] MEDS ORDERED: LACTULOSE 20 GM/30 ML UCUP ONE (15:31)
[2025-08-09] MEDS ORDERED: METRONIDAZOLE 500mg IVPB 500 MG/100 ML BAG IV SCH (17:00)
[2025-08-09] MEDS: NA CHLORIDE 0.9% 1,000 ML IV SCH (17:16)
[2025-08-09 17:48] VITALS: BMI 26.1
[2025-08-09] MEDS: CEFEPIME 1 GM in NA CHLORIDE 0.9% 100 ML IV SCH (20:02)
[2025-08-09] MEDS: FAMOTIDINE 20 MG/2 ML VIAL IV SCH (20:02)
[2025-08-09] MEDS: LATANOPROST 0.005% 2.5ML OPTH OPTH SCH (21:00)
[2025-08-09] MEDS: MAGNESIUM GLYCINATE 120 MG PO SCH (21:00)
[2025-08-09] MEDS: METOPROLOL TAR 50 MG TAB PO SCH (21:09)
[2025-08-09] MEDS: MIRTAZAPINE 15 MG TAB PO SCH (21:09)
[2025-08-09] MEDS: EZETIMIBE 10 MG TAB PO SCH (21:09)
[2025-08-09] MEDS ORDERED: GLUCAGON 1 MG/VIAL IM PRN (21:54)
[2025-08-09] MEDS ORDERED: D10W 125 ML IV PRN (21:54)
[2025-08-09] MEDS: INSULIN REGULAR (HUMAN) 100 UNIT/ML SQ SCH (22:15)
[2025-08-10] MEDS: METRONIDAZOLE 500mg IVPB 500 MG/100 ML BAG IV SCH (01:16)
--- NOTE | 2025-08-10 02:02 | HP ---
Date of Admission: 08/09/2025 Chief Complaint: Fever, confusion, weakness. History Of Present Illness: This is an 79-year-old very pleasant male patient, who has metastatic ch olangiocarcinoma, who is undergoing chemotherapy at [facility]. The patient gets chemotherapy every 2 weeks. So far, he had 4 different rounds of chemotherapy, last one was yesterday. He woke up thi s morning, not feeling good, feeling very weak, tired, and had fever at home of 100.6 degrees Fahrenh eit and his blood sugar at home was 371 this morning. He was also confused and he took his evening m edication by mistake this morning. No vomiting. No diarrhea. After he was evaluated at office, roxanna faust was made to send him to emergency room for further evaluation and management of this problem an karla details were discussed with emergency room physician after the patient arrived in the emergency hernandez m and provided all the details and requested further evaluation. After all the evaluation completed, emergency room physician did call me back and we did discuss all the test results and decision was m loc to admit the patient to hospital for observation. Allergies: TO SULFA CAUSING RASH AND ITCHING, MORPHINE CAUSING SHORTNESS OF BREATH. Medications: Levothyroxine 175 mcg daily, Tradjenta 5 mg daily, mirtazapine 7.5 mg at bedtime, aspir in 81 mg daily, duloxetine 30 mg daily, ezetimibe 10 mg daily, latanoprost eye drops, metoprolol tart rate 50 mg 2 times a day, and Zofran 8 mg as needed for nausea and vomiting. Review of Systems: Constitutional: As mentioned above. ORDER MAKE UP CLERK: As mentioned above. All other systems reviewed and negative. 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 Past Surgical History: Port-A-Cath placement, coronary artery bypass surgery in 2012, cholecystectom y, and biliary stent placement. Family History: Father , details unknown. Mother , had pancreatic cancer. Social History: Negative for smoking and alcohol use. Physical Examination: Vital Signs: Blood pressure was 130/58, pulse 75, temperature 98.8, respiratory rate 16. Weight 154 .8 pounds, height 64 inches. General: Awake, alert, oriented, not in distress. HEENT: Head atraumatic, normocephalic. Conjunctivae nonerythematous. Sclerae white. Mouth, no thr ush or edema noted. Ears/Nose, no mass, lesion, discharge noted. Neck: Supple. No JVD, lymph nodes, bruit, thyromegaly noted. Lungs: Presence of rales in the right lung base, not using any accessory muscles of respiration. Heart: Normal heart sounds, no murmur or gallop. Abdomen: Soft, bowel sounds normal. No guarding, rigidity, tenderness, mass, hepatosplenomegaly, dis tention, or bruit noted. Extremities: No leg edema. No calf tenderness. Skin: No rash, ulcer, cellulitis. Lymphatics: No lymph node enlargement in neck, supraclavicular, infraclavicular region. Neuro: No focal neurological deficit. Chest: Unremarkable. External Genitalia: Deferred. Rectal: Deferred. Laboratory Data: WBC 7, hemoglobin 9.8, platelets 161. Sodium 134, potassium 4, chloride 105, bicar b 23, BUN 23, creatinine 1.49, glucose 295, lactic acid 1.4. Troponin 36.7. Lipase 40. Chest x-ray , prominent basilar interstitial markings, likely due to pulmonary fibrosis. CAT scan of the brain s howed no acute intracranial changes, but it does show some changes of chronic small vessel ischemic c hanges. CAT scan of chest, abdomen, pelvis shows prominent stool retention throughout the colon with mild pericolonic inflammatory changes which could be due to stercoral colitis, moderate nonspecific inflammation of the fat, anterior superior omentum, small bilateral renal calculi without hydronephro sis. Impression: 1. Stercoral colitis. 2. Constipation. 3. Type 2 diabetes mellitus, uncontrolled. 4. Pulmonary fibrosis. 5. Obstructive sleep apnea. 6. Hypertension. 7. Mixed hyperlipidemia. 8. Coronary artery disease. 9. Cholangiocarcinoma, with metastatic disease to lung and liver. 10. Prostate cancer. Plan: We will go ahead and admit the patient to hospital for further evaluation and management of th is problem. The patient will be admitted to the hospital for observation and we will go ahead and st art him on empiric antibiotic which would be cefepime and metronidazole. We will give him treatment for constipation. We will see him tomorrow morning for followup and we will monitor his vital signs including his temperature. If condition remained stable, plan is to discharge him to go home tomorro w with oral antibiotic and recommendation for constipation will be given to him upon discharge. We w ill ask him to start taking Senokot-S 2 tablets 2 times a day and use MiraLAX 1 or 2 times a day as n eeded. For diabetes, we will manage it with sliding scale insulin and continue his oral hypoglycemic medication on outpatient basis, but we will go ahead and start long-acting insulin at bedtime. So f ar, the patient was getting his diabetes managed by manager heart failure at [facility], but the patient a nd his wants me to take over that management from now on. For hypothyroidism, we will continue his levothyroxine. No need for further intervention. For coronary artery disease, no need for furth er intervention. We will continue aspirin and metoprolol per order. For hypertension, we will monit or blood pressure. If necessary, make adjustment on medication and continue his metoprolol per order . Total time spent 65 minutes including review of prior office visit record, communication with emergen cy room physician on 2 different occasions today, review of emergency room visit record, and racheli brianna today's evaluation and management. I did communicate with the patient in presence of his reg jerkishore advance directives and he has not been able to make any clear-cut decision and I encouraged th e patient and the patient's to communicate about it and once they reached to any final decision, then to i nform me about his decision. ROMEO/MODL Voice ID: [id number]
[2025-08-10 05:58] LABS: Absolute Lymphocytes (CBC) 1.0 K/uL (0.7-4.9); Hematocrit 33.4 % (39.6-49.0); Hemoglobin 11.4 g/dL (13.6-17.9); MCH 34.2 pg (27.0-35.0); MCHC 34.2 g/dL (32.0-36.0); MCV 100.0 fL (80-100); MPV 8.8 fL (7.6-11.3); Nucleated RBC Absolute Count 0.0 (0-0); Nucleated Red Blood Cells % 0.1 % (0-0); RBC Red Blood Cell Count 3.34 M/uL (4.33-5.43); White Blood Count 8.00 thou/uL (4.3-10.9)
[2025-08-10] MEDS ORDERED: LEVOTHYROXINE SODIUM 175 MCG PO SCH (06:00)
[2025-08-10 06:13] LABS: Anion Gap 13.0 mEq/L (5.0-15.0); BUN Blood Urea Nitrogen 20.0 mg/dL (7-18); Glucose Level 195.0 mg/dL (74-106); Potassium 4.0 mEq/L (3.5-5.1)
[2025-08-10] MEDS: LEVOTHYROXINE SOD 0.1 MG TAB PO SCH (06:32)
[2025-08-10] MEDS: LEVOTHYROXINE SOD 0.075 MG TAB PO SCH (06:32)
[2025-08-10] MEDS: DULOXETINE 30 MG CAP PO SCH (07:59)
[2025-08-10] MEDS: ACETAMINOPHEN 325 MG TABLET PO PRN (07:59)
[2025-08-10] MEDS: Linagliptin [Tradjenta] 5 MG Tablet PO SCH (08:00)
[2025-08-10] MEDS: AMLODIPINE 5 MG TAB PO ONE (08:00)
[2025-08-10] MEDS: TAMSULOSIN 0.4 MG SR CAP PO SCH (08:00)
--- NOTE | 2025-08-10 23:47 | PN ---
Date of Progress Note: 08/10/2025 Subjective: The patient was seen this morning for followup. When I saw him this morning, he was sle eping, easily arousable, not in distress. Denied any complaints overnight. His condition remained s table and afebrile. After I saw him, decision was made to discharge him to go home and after I wrote the discharge order before he left the hospital, nurse contacted me and informed me that the patient had spiked a temperature of 103 degrees Fahrenheit. So at that time, 2 more sets of blood culture w as ordered and discharge plan was canceled. Objective: HEENT: This morning when I saw him, HEENT examination unremarkable. Lungs: Clear to auscultation. Heart: Sounds normal. Abdomen: Soft. Bowel sounds normal. No guarding, rigidity, tenderness, distention. Extremities: No leg edema. Laboratory Data: WBC 8, hemoglobin 11.4, platelets 135. Sodium 138, potassium 4, chloride 109, bica rb 20, BUN 20, creatinine 1.27, glucose 195. Impression: 1. Fever. 2. 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 3. Hypertension. 4. Type 2 diabetes mellitus. Plan: We will go ahead and continue current empiric antibiotic. The patient is on chemotherapy for his cholangiocarcinoma. So at this time, only evidence of any infection is stercoral colitis as note d on the CAT scan and for that, we will continue current 2 antibiotics which is cefepime and metronid azole. Two more sets of blood cultures were done. We will follow up on that result. Meanwhile, we will today consult Physical Therapy. Continue with current diabetes management. Continue current an tihypertensive medication. Amlodipine 5 mg will be started today for blood pressure control and cont inue metoprolol. I will see him tomorrow for followup. The patient's constipation problem has resolved w ith use of lactulose. ROMEO/MODL Voice ID: [id number] Report ID: [id number]
[2025-08-11 05:12] VITALS: TEMP 97.6
[2025-08-11 07:17] VITALS: O2SAT 95
[2025-08-11 08:22] VITALS: BP 138/61
[2025-08-11] MEDS: GLUCERNA SHAKE 237 ML CAN PO SCH (08:32)
--- NOTE | 2025-08-12 07:02 | DS ---
Date of Discharge: 08/11/2025 Disposition: Discharged to go home. Physical Examination: HEENT: Unremarkable. Lungs: Clear to auscultation. Heart: Sounds normal. Abdomen: Soft. Bowel sounds normal. No guarding, rigidity, tenderness, distention. Extremities: No leg edema. Discharge Diagnoses: 1. . 2. . Discharge Medications: 1. . 2. . Hospital Course: An 79-year-old male patient admitted to the hospital with fever. Please see dictat ed H and P for more information. After patient was evaluated, he was admitted to the hospital. Inniharika snow, we were concerned about possibility of pneumonia, but that did not fountain pen turner to be true. CAT s can of abdomen and pelvis had shown evidence of significant problem with constipation with evidence o f stercoral colitis. IV antibiotic was given. Lactulose was given, which has resulted in resolution of his constipation problem. Yesterday, I was planning to discharge him and in fact, after I wrote the discharge order, patient had temperature spiking up to 103 degrees Fahrenheit, so discharge was c anceled. We kept him in the hospital. Two more sets of blood cultures were done and we continued hi s IV antibiotics. Today, he feels a lot better. He has remained afebrile since his temperature spik ed yesterday and we did start him on long-acting insulin. We will continue that on outpatient basis. The patient was discharged to go home in stable condition with above-mentioned medication instructi ons. Laboratory Data: , . ROMEO/MODL Voice ID: [id number] Report ID: [id number]
== END 2025-08-11 10:10 | disposition home or self-care (01) | DRG 392 ==
LOC: ER 10:53 → ERHOLD 15:09 → 4TH 16:47 → OBSVTOIN 08-10 17:38
PROVIDERS: ADMIT Internal Medicine; ATTEND Internal Medicine
DX: K52.89 Other specified noninfective gastroenteritis and colitis (principal); C24.0 Malignant neoplasm of extrahepatic bile duct; C78.00 Secondary malignant neoplasm of unspecified lung; C78.7 Secondary malignant neoplasm of liver and intrahepatic bile duct; I10 Essential (primary) hypertension; E03.9 Hypothyroidism, unspecified; E66.9 Obesity, unspecified; D64.9 Anemia, unspecified; K59.00 Constipation, unspecified; E78.2 Mixed hyperlipidemia; J84.10 Pulmonary fibrosis, unspecified; G47.33 Obstructive sleep apnea (adult) (pediatric); E11.649 Type 2 diabetes mellitus with hypoglycemia without coma; N40.0 Benign prostatic hyperplasia without lower urinary tract symptoms; I25.10 Atherosclerotic heart disease of native coronary artery without angina pectoris; Z88.2 Allergy status to sulfonamides; Z88.5 Allergy status to narcotic agent; Z68.26 Body mass index [BMI] 26.0-26.9, adult; Z85.46 Personal history of malignant neoplasm of prostate
CPT/HCPCS: 36415; 70450; 71045; 71250; 74176; 80048; 82947; 83605; 83690; 84484; 85025; 85610; 87040; 93005; 96365; 96366; 96367; 96368; 97116; 97161; 99284; G0378; J0692; J1815; J7030